=== PATIENT | female | born 1975 | race Caucasian/White ===

== ENCOUNTER 2017-04-09 15:10 | Inpatient (IN) ==
--- NOTE | 2017-04-09 17:10 | Consult Note ---
<Santa Cheng V - Last Filed: 04/09/17 17:22> Consult Information - Data of Consult Patient: new to practice Consult date: 04/09/17 Requesting Physician: Jovani Joyner MD Primary Care Provider: ODALYS Barkley Family Provider: ODALYS Barkley - Consult Narrative Reason for consult: extensive medical comorbities History of present illness: Patient is a 41-year-old female who was initially admitted July 10, 2016 for resection of an intra-abdominal neuroendocrine tumor. Prior to this surgery. She had previously noted increased flushing when she drank alcohol. She was found to have a liver lesion in which a biopsy revealed neuroendocrine tumor. She underwent a small bowel resection, appendectomy, removal of large mesenteric mass encased in a mesenteric artery and vein. Unfortunately, she has underwent numerous complications following this procedure, including are heard' s with a right-sided pneumothorax. She went into septic shock and renal failure , accompanied cardiac dysrhythmias. She has been followed by Dr. Lewis with infectious disease for her ongoing open abdominal wound. On 11/18/16 until she was at [facility] in [place]. She was then moved to swing bed status at [facility] from 01/22 through 03/26. Unfortunately, she obtained a central line infection and was readmitted to via [facility] on March 26. Time she was found to have acute pancreatitis. She has been receiving TPN for ongoing nutrition with extensive wound care to her open abdominal wounds. The hope is that she can gain strength and hopefully discharged home. She was accepted to [facility] swing bed for further ongoing rehabilitation. [facility] Metastatic Neuroendocrine tumor Hypertension. Diabetes. Anemia. Pancreatitis Surgical History: 07/10/16-resection of intra-abdominal neuroendocrine tumor. Subsequently appendectomy, small bowel resection, removal of large mesenteric mass. Multiple other exploratory laparotomies with further resections and ileostomy Family History: unknown - Social History Smoking status: Current every day smoker Substance use type: does not use Household members: spouse, children Current residence: Apartment/Private Home Review of Systems All systems: reviewed and no additional remarkable complaints except as stated - Constitutional Constitutional: Present: fatigue, weakness - Gastrointestinal Gastrointestinal: Present: as per HPI, abdominal pain Medications Home Medications Medication Instructions Recorded Confirmed Type Acetaminophen [Acetaminophen Extra 1,000 mg PO Q6HPRN PRN 04/09/17 04/09/17 History Strength] Acetaminophen [Feverall] 650 mg RC Q4HPRN PRN 04/09/17 04/09/17 History Albuterol/Ipratropium [Duoneb] 1 unit AEROSOL QIDPRN PRN 04/09/17 04/09/17 History Cetirizine [Zyrtec] 5 mg PO DAILY 04/09/17 04/09/17 History D50w [Dextrose 50% in Water] 50 ml IV O PRN 04/09/17 04/09/17 History DiphenhydrAMINE [Benadryl] 25 mg IV Q8HPRN PRN 04/09/17 04/09/17 History FentaNYL PATCH [Duragesic Patch] 25 mcg TD Q3D 04/09/17 04/09/17 History FentaNYL PATCH [Duragesic Patch] 50 mcg TD Q3D 04/09/17 04/09/17 History Furosemide [Lasix] 20 mg IM DAILY PRN 04/09/17 04/09/17 History Glucagon [Glucagen] 1 mg IM PRN PRN 04/09/17 04/09/17 History Heparin Sodium,Porcine/Pf [Heparin 1 ml IVP BID 04/09/17 04/09/17 History Flush 10 Units/ml Syr] HydrOXYzine [Atarax] 25 mg PO QIDPRN PRN 04/09/17 04/09/17 History Hydromorphone HCl in 0.9% NaCl 0.25 mg IVP Q2HPRN PRN 04/09/17 04/09/17 History [Hydromorphone-Ns 1 mg/ml Syr] Insulin Lispro [Humalog] 2 - 12 unit SQ PRN PRN 04/09/17 04/09/17 History LORazepam INJ [Ativan Inj] 0.13 ml IM Q6HPRN PRN 04/09/17 04/09/17 History Meperidine HCl/Pf [Meperidine 25 2 ml IV Q4HPRN PRN 04/09/17 04/09/17 History mg/ml Vial] Miconazole 2% Powder [Desenex] 1 applic TP BID 04/09/17 04/09/17 History Nystatin Cream [Mycostatin] 1 applic TOP BID 04/09/17 04/09/17 History Ondansetron [Zofran Odt] 1 tab PO Q6HPRN PRN 04/09/17 04/09/17 History Oxycodone *Ir* [Roxicodone *Ir*] 5 - 10 mg PO Q4HPRN 04/09/17 04/09/17 History Polyethylene Glycol 3350 17 gm PO DAILY PRN 04/09/17 04/09/17 History Saliva Substitute Mouth [address] 1 applic PO QIDPRN PRN 04/09/17 04/09/17 History [Biotene Moisturizing Mouth [address]] Exam Vital Signs: Temperature 98.5 F 04/09/17 15:44 Pulse Rate 106 H 04/09/17 15:44 Respiratory Rate 18 04/09/17 15:44 Blood Pressure 125/80 04/09/17 15:44 Pulse Oximetry 98 04/09/17 15:44 Oxygen Delivery Method Room Air Height: 1.57 m Weight: 76.6 kg Body Mass Index: 30.9 - Constitutional Present: mild distress - Routine HEENT Exam Head: Present: normocephalic, atraumatic Eye: Present: EOMI, PERRL ENT: Present: mucous membranes moist, mucous membranes dry - Routine Neck Exam Present: supple, full ROM - Routine Respiratory Exam Present: CTA bilaterally - Routine Cardiovascular Exam Present: RRR, S1, S2, no murmur - Routine Abdominal Exam Comments: Open abdominal wound - Routine Extremities Exam Present: full ROM - Routine Back/Spine/Pelvis Exam Back/Spine: Present: full ROM - Routine Skin Exam Present: intact, dry, warm - Routine Neurological Exam Present: alert, oriented X3, CN II-XII intact - Routine Psychiatric Exam Present: normal affect, anxious Assessment and Plan (1) HTN (hypertension) Current visit: Yes Status: Acute (2) Diabetes Current visit: Yes Status: Acute (3) Open abdominal wall wound Current visit: Yes Status: Acute (4) Decubitus ulcer Current visit: Yes Status: Acute DVT Prophylaxis: SCD's Resuscitation Status: Full Code Assessment and Plan: Other ongoing medical problems. Recent pancreatitis Recent acute kidney injury Recurrent peritonitis Colocutaneous fistula Recent septic shock with Enterococcus Faecalis Plan Patient has a very complex past medical history Hospital services will continue to follow patient during her stay in the rehabilitation unit. Consult placed to wound care team for ongoing abdominal wound management and dressing changes. It was also reported that patient had a Consultation is placed to the pharmacy for TPN for ongoing nutrition. Patient is to be on a clear liquid diet, however, may not have more than 150 ML' s every hour while awake Monitor Accu-Cheks routinely. Continue with sliding scale Humalog 2-12 units. SCD to the lateral lower extremity for DVT prophylaxis Patient to PT and OT for ongoing strengthening Recheck CBC and BMP tomorrow morning to follow blood counts, renal function and electrolytes Hospital Course Summary Disclaimer: The visit summary below is not to be considered part of the above Progress Note. Hospital Course: Other ongoing medical problems. Recent pancreatitis Recent acute kidney injury Recurrent peritonitis Colocutaneous fistula Recent septic shock with Enterococcus Faecalis Plan Patient has a very complex past medical history Hospital services will continue to follow patient during her stay in the rehabilitation unit. Consult placed to wound care team for ongoing abdominal wound management and dressing changes. It was also reported that patient had a Consultation is placed to the pharmacy for TPN for ongoing nutrition. Patient is to be on a clear liquid diet, however, may not have more than 150 ML' s every hour while awake Monitor Accu-Cheks routinely. Continue with sliding scale Humalog 2-12 units. SCD to the lateral lower extremity for DVT prophylaxis Patient to PT and OT for ongoing strengthening Recheck CBC and BMP tomorrow morning to follow blood counts, renal function and electrolytes <Karl Grajeda - Last Filed: 04/09/17 19:28> Consult Information - Data of Consult Requesting Physician: Jovani Joyner MD Primary Care Provider: ODALYS Barkley Family Provider: ODALYS Barkley Exam Vital Signs: Temperature 98.5 F 04/09/17 15:44 Pulse Rate 106 H 04/09/17 15:44 Respiratory Rate 18 04/09/17 15:44 Blood Pressure 125/80 04/09/17 15:44 Pulse Oximetry 98 04/09/17 15:44 Oxygen Delivery Method Room Air Height: 1.57 m Weight: 76.6 kg Assessment and Plan (1) HTN (hypertension) Current visit: Yes Status: Acute (2) Diabetes Current visit: Yes Status: Acute (3) Open abdominal wall wound Current visit: Yes Status: Acute (4) Decubitus ulcer Current visit: Yes Status: Acute Assessment and Plan: Have independently interviewed and examined pt. Chart reviewed. Case discussed with my CHILD THERAPIST. Above care plan developed with my supervision; agree with above. Doing fair. Very weak and debilitated from her extensive hospitalizations. Hoping to make gains her like she did in alf prior. Notes ab discomfort. Does want more fluids than the 150cc she is allowed-feels hungry and liquids help take the edge off her hunger. No nausea. Breathing well. Lungs: clear CV: tachy, regular MSE: awake alert appropriate Plan: Agree with admission of pt to IRU to maximize functional status. Continue with TPN for nutritional support. Monitor lab. Monitor sugars due to TPN. Will check prealbumin in am to assess nutritional status. Hospital Course Summary Disclaimer: The visit summary below is not to be considered part of the above Progress Note.
[2017-04-09] MEDS ORDERED: DEXTROSE 50% INJECTION 50ml VIAL IV PRN (17:19)
[2017-04-09] MEDS ORDERED: ALBUTEROL/IPRATROPIUM 2.5mg-0.5mg/3ml NEB AEROSOL PRN (17:19)
[2017-04-09] MEDS ORDERED: ACETAMINOPHEN 650 MG SUPPOSITORY PR PRN (17:19)
[2017-04-09] MEDS ORDERED: POLYETHYL GLYCOL 3350 17gm PACKET PO PRN (17:19)
[2017-04-09] MEDS ORDERED: FUROSEMIDE 20 MG/2 ML INJECTION IVP PRN (17:19)
[2017-04-09] MEDS ORDERED: GLUCAGON 1 MG INJECTION IM PRN (17:19)
[2017-04-09] MEDS ORDERED: INSULIN ASPART 100unit/ml INJECTION SQ PRN (17:19)
[2017-04-09] MEDS ORDERED: SALIVA SUBSTITUTE MOUTH SPRAY 1.5oz PO PRN (17:19)
[2017-04-09] MEDS ORDERED: HYDROMORPHONE 2 MG/ML INJECTION IVP PRN (17:19)
[2017-04-09] MEDS: FOLIC ACID IV SCH (17:36)
[2017-04-09] MEDS: MULTI TRACE ELEMENTS IV SCH (17:36)
[2017-04-09] MEDS: MULTI VIT INFUSION IV SCH (17:36)
[2017-04-09] MEDS: [UNRECOGNIZED DRUG - OTHER] IV SCH (17:36)
[2017-04-09] MEDS: Oxycodone *IR* 5 MG TABLET PO PRN (19:38)
[2017-04-09] MEDS: FAT EMULSION 20% 250 ML IV SCH (19:51)
[2017-04-09] MEDS: MICONAZOLE 2% POWDER 45gm TP SCH ×2 (21:55→22:05)
[2017-04-09] MEDS ORDERED: SALINE FLUSH 10ml SYRINGE IV PRN (23:01)
[2017-04-10] MEDS: Oxycodone *IR* 5 MG TABLET PO PRN ×4 (01:19→23:20)
--- NOTE | 2017-04-10 04:42 | IRU History & Physical Report ---
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 Initial surgery on 07/10/16, but has not been home since that date. She had post op complications involving renal failure, sepsis and cardiac arrest. She was fed TPN via central line, which developed infection and she has been on IV antibiotics. Continued feeding on TPN with only clear liquids oral due to open colon fistula and continued pancreatitis. She is unable to manage ADL at this time and is appropriate for admission to IRU for Inpatient Physical Therapy and Occupational Therapy. Review of Systems All systems: reviewed and no additional remarkable complaints except as stated - Constitutional Constitutional: Present: fatigue, weakness - Cardiovascular Cardiovascular: Present: palpitations, dyspnea on exertion, orthopnea - Respiratory Respiratory: Present: dyspnea - Gastrointestinal Gastrointestinal: Present: as per HPI, abdominal pain - Psychiatric Psychiatric: Present: depression, hopelessness, mood swings [facility] Surgical History: 07/10/16-resection of intra-abdominal neuroendocrine tumor. Subsequently appendectomy, small bowel resection, removal of large mesenteric mass. Multiple other exploratory laparotomies with further resections and ileostomy - Social History Smoking status: Current every day smoker Substance use type: does not use Alcohol intake frequency: does not drink Current residence: Apartment/Private Home Medications Home Medications Medication Instructions Recorded Confirmed Type Acetaminophen [Acetaminophen Extra 1,000 mg PO Q6HPRN PRN 04/09/17 04/09/17 History Strength] Acetaminophen [Feverall] 650 mg RC Q4HPRN PRN 04/09/17 04/09/17 History Albuterol/Ipratropium [Duoneb] 1 unit AEROSOL QIDPRN PRN 04/09/17 04/09/17 History Cetirizine [Zyrtec] 5 mg PO DAILY 04/09/17 04/09/17 History D50w [Dextrose 50% in Water] 50 ml IV O PRN 04/09/17 04/09/17 History DiphenhydrAMINE [Benadryl] 25 mg IV Q8HPRN PRN 04/09/17 04/09/17 History FentaNYL PATCH [Duragesic Patch] 25 mcg TD Q3D 04/09/17 04/09/17 History FentaNYL PATCH [Duragesic Patch] 50 mcg TD Q3D 04/09/17 04/09/17 History Furosemide [Lasix] 20 mg IM DAILY PRN 04/09/17 04/09/17 History Glucagon [Glucagen] 1 mg IM PRN PRN 04/09/17 04/09/17 History Heparin Sodium,Porcine/Pf [Heparin 1 ml IVP BID 04/09/17 04/09/17 History Flush 10 Units/ml Syr] HydrOXYzine [Atarax] 25 mg PO QIDPRN PRN 04/09/17 04/09/17 History Hydromorphone HCl in 0.9% NaCl 0.25 mg IVP Q2HPRN PRN 04/09/17 04/09/17 History [Hydromorphone-Ns 1 mg/ml Syr] Insulin Lispro [Humalog] 2 - 12 unit SQ PRN PRN 04/09/17 04/09/17 History LORazepam INJ [Ativan Inj] 0.13 ml IM Q6HPRN PRN 04/09/17 04/09/17 History Meperidine HCl/Pf [Meperidine 25 2 ml IV Q4HPRN PRN 04/09/17 04/09/17 History mg/ml Vial] Miconazole 2% Powder [Desenex] 1 applic TP BID 04/09/17 04/09/17 History Nystatin Cream [Mycostatin] 1 applic TOP BID 04/09/17 04/09/17 History Ondansetron [Zofran Odt] 1 tab PO Q6HPRN PRN 04/09/17 04/09/17 History Oxycodone *Ir* [Roxicodone *Ir*] 5 - 10 mg PO Q4HPRN 04/09/17 04/09/17 History Polyethylene Glycol 3350 17 gm PO DAILY PRN 04/09/17 04/09/17 History Saliva Substitute Mouth [place] 1 applic PO QIDPRN PRN 04/09/17 04/09/17 History [Biotene Moisturizing Mouth [place]] Allergies Allergy/AdvReac Type Severity Reaction Status Date / Time kiwi Allergy Severe Rash Verified 04/10/17 01:26 orange Allergy Severe Rash Verified 04/10/17 01:26 vancomycin Allergy Severe Rash Verified 04/10/17 01:26 Penicillins Allergy Unknown Verified 04/10/17 01:26 Exam Vital Signs: Temperature 98.3 F 04/09/17 20:26 Pulse Rate 96 04/09/17 21:11 Respiratory Rate 18 04/09/17 21:11 Blood Pressure 118/75 04/09/17 20:26 Pulse Oximetry 99 04/09/17 21:11 Oxygen Delivery Method Room Air Telemetry Rhythm: Sinus Rhythm Height: 1.57 m Weight: 76.6 kg Body Mass Index: 30.9 - Constitutional Present: mild distress, cooperative - Routine HEENT Exam Head: Present: normocephalic - Routine Chest/Breast/Axilla Exam Chest wall: Absent: tenderness - Routine Respiratory Exam Absent: accessory muscle use, wheezes, crackles - Routine Cardiovascular Exam Present: RRR, no murmur - Routine Abdominal Exam Comments: open abd with wound vac in place. - Routine Extremities Exam Present: pulses intact. Absent: cyanosis, clubbing, edema - Routine Skin Exam Comments: stage 3 decud ulcer buttock - Routine Psychiatric Exam Present: depressed IRU A/P (1) Myopathy Current visit: Yes Status: Acute Myopathy of critical illness. Pt will require PT and OT involvement in intense therapy daily. (2) Diabetes Current visit: Yes Status: Acute Medical to follow (3) Open abdominal wall wound Current visit: Yes Status: Acute Wound care to follow and manage wound vac. Pt's surgeon will manage if needed. (4) Decubitus ulcer Current visit: Yes Status: Acute wound care consult. DVT Prophylaxis: SCD's Resuscitation Status: Full Code - Course Hospital Course: Jovani Joyner MD: - Interventions to Obtain Goals PT Treatment Plan: Balance/Proprioception, Functional Activities, Gait Training , Therapeutic Exercise OT Treatment Plan: ADL (Basic Care), Balance Training, Joint Mobilization
--- NOTE | 2017-04-10 04:53 | IRU 24Hr Post Admit Eval ---
24 Hr Post Admission Physical - Relevant Changes Relevant Changes: No Reviewed: I have reviewed the patient's information and concur with the finding and results of the pre-admission screen. Certification: I certify the patient for rehabilitation. - Patient Condition (1) Myopathy Status: Acute Code(s): G72.9 - Myopathy, unspecified (2) Diabetes Status: Acute Code(s): E11.9 - Type 2 diabetes mellitus without complications (3) Open abdominal wall wound Status: Acute Code(s): S31.109A - Unspecified open wound of abdominal wall, unspecified quadrant without penetration into peritoneal cavity, initial encounter (4) Decubitus ulcer Status: Acute Code(s): L89.90 - Pressure ulcer of unspecified site, unspecified stage - Prior Functional Status Lives With: With Family Residence Type: Apartment/Private Home Assitive Devices: None Prior Functional Status: Indep. at home or school - Current Functional Status Failed Alternative Therapy: Yes Patient Requirements: The patient requires oversight by rehabilitation physician to manage their rehabilitation treatment plan and multidisciplinary approach to care that can only be provided in an IRF and requires a multidisciplinary approach to care, provided by professional PTs, OTs, STs, dieticians, RTs, rehabilitation nurses and is not available in lesser levels of care. Limitiations Req: Mobility Impairment, ADL Impairment Speech Therapy Minutes: 0 Physical Therapy Minutes: 90 Occupational Therapy Minutes: 90 Therapy: The patient is to receive therapy at least 5 days a week. - Complications/Comorbidities Impact on Functional Outcomes: Severe weakness, illness and mood disorder will delay long-term recovery. Barriers to Discharge: Weakness - Plan to Avoid Complications Plan to Avoid Complications: The patient cannot receive this care in a lesser intensive setting such as Snf or Outpatient Therapy due to the patient requiring intense daily therapy.
[2017-04-10] MEDS: ONDANSETRON ODT 4 MG TABLET PO PRN ×2 (08:28→23:13)
[2017-04-10] MEDS: CETIRIZINE 10 MG TABLET PO SCH (08:29)
[2017-04-10] MEDS: MICONAZOLE 2% POWDER 45gm TP SCH ×3 (08:30→23:00)
[2017-04-10] MEDS: SALINE FLUSH 10ml SYRINGE IV PRN (08:30)
[2017-04-10] MEDS: ACETAMINOPHEN 500 MG TABLET PO PRN (11:29)
[2017-04-10] MEDS: PROMETHAZINE 12.5 MG TABLET PO PRN (11:29)
--- NOTE | 2017-04-10 11:43 | Pharmacy Consult-TPN/PPN ---
Pharmacy Consult-TPN/PPN - Laboratory Information Chemistry Turbidity < 20 (0-20) 04/10/17 04:46 Sodium 134 MEQ/L (134-144) 04/10/17 04:46 Potassium 3.9 MEQ/L (3.6-5) 04/10/17 04:46 Chloride 111 MEQ/L (98-107) H 04/10/17 04:46 Carbon Dioxide 19 MEQ/L (22-30) L 04/10/17 04:46 Anion Gap 4 MEQ/L (5-15) L 04/10/17 04:46 BUN 48.0 MG/DL (7-17) H 04/10/17 04:46 Creatinine 0.8 MG/DL (0.7-1.2) 04/10/17 04:46 GFR Calculation 79 04/10/17 04:46 BUN/Creatinine Ratio 60 RATIO (6-26) H 04/10/17 04:46 Glucose 85 MG/DL (65-110) 04/10/17 04:46 Calculated Osmolality 270 MOSM/KG (261-280) 04/10/17 04:46 Calcium 8.3 MG/DL (8.4-10.2) L 04/10/17 04:46 Phosphorus 4.4 MG/DL (2.5-4.5) 04/10/17 04:46 Magnesium 2.0 MG/DL (1.6-2.3) 04/10/17 04:46 Total Bilirubin 1.60 MG/DL (0.20-1.30) H 04/10/17 04:46 Icterus Index < 2 (0-7) 04/10/17 04:46 AST 72 U/L (14-36) H 04/10/17 04:46 ALT 77 U/L (9-52) H 04/10/17 04:46 Alkaline Phosphatase 292 U/L (38-126) H 04/10/17 04:46 Total Protein 5.6 G/DL (6.3-8.2) L 04/10/17 04:46 Albumin 2.2 G/DL (3.5-5.0) L 04/10/17 04:46 Globulin 3.4 G/DL (2.4-3.6) 04/10/17 04:46 Albumin/Globulin Ratio 0.6 RATIO (1.1-2.2) L 04/10/17 04:46 Specimen Hemolysis < 15 (0-25) 04/10/17 04:46 Intake and Output 04/09/17 04/10/17 04/11/17 06:59 06:59 06:59 Intake Total 750 / 750 Output Total 700 / 700 1450 / 1450 Balance 50 / 50 -1450 / -1450 Weight 76.6 kg Intake: IV 250 / 250 Intralipid 20% 250 ml @ 250 / 250 50 mls/hr IV 1600 [facility] Rx# :[id number] Oral 500 / 500 Output: Stool 1450 / 1450 Urine Amount (Catheter) 700 / 700 - Consult Information We will continue to run TPN at 75mL per hour with the new formula of adding 40mEq of sodium acetate to next standard bag. Serum sodium was 134 and low normal with bicarbonate of 19. LFT's are elevated at this time. Thanks
--- NOTE | 2017-04-10 12:39 | Progress Note ---
Subjective: Laura is seen this morning. She is in good spirits and was able to get rest overnight. On examination she reports mild abdominal pain. Denies feeling short of breath or chest pain. wound output overnight revels 1450 ml. UO via christine is 700ml. Objective Vital signs: Temperature 98.5 F 04/10/17 07:52 Pulse Rate 99 04/10/17 07:52 Respiratory Rate 20 04/10/17 07:52 Blood Pressure 112/64 04/10/17 07:52 Pulse Oximetry 99 04/10/17 07:52 Oxygen Delivery Method Room Air Body Mass Index: 30.9 - Constitutional Present: no acute distress - Routine HEENT Exam Head: Present: normocephalic Eye: Present: EOMI, PERRL ENT: Present: mucous membranes moist - Routine Respiratory Exam Present: CTA bilaterally - Routine Cardiovascular Exam Present: RRR, S1, S2 - Routine Abdominal Exam Comments: abdomen dressing intact and applied to wall suction - Routine Extremities Exam Present: full ROM Comments: Bilateral foot drop - Routine Back/Spine/Pelvis Exam Back/Spine: Present: full ROM - Routine Skin Exam Present: intact, dry, warm - Routine Neurological Exam Present: alert, oriented X3, CN II-XII intact - Routine Psychiatric Exam Present: normal affect Results - Labs CBC & Chem 7: 04/10/17 04:46 04/10/17 04:46 Assessment and Plan (1) Diabetes Current visit: Yes Status: Acute (2) Open abdominal wall wound Current visit: Yes Status: Acute (3) Decubitus ulcer Current visit: Yes Status: Acute (4) Myopathy Current visit: Yes Status: Acute Assessment and Plan: 04/10 Overall in good spirits Reviewed all morning labs. Hgb is low however is stable at 7.9. Old records did show Hgb down to 7.2 Continue to work on wound care as per Wound team. Pain control with fentanyl patch and oxycodone as needed for breakthrough pain. Spoke with infectious disease regarding infectious and recent history Enterococcus infection. Will continue on precautions until cultures are verified from [facility] [address]. PT reports that patient was able to be up in the chair for over an hour. Will continue to work on strengthening. Encouraged frequent turning (every 2 hours while in bed) to keep patient off Coccyx given known coccyx wound Will continue to monitor. Routine laboratory studies every 2-3 days Sepsis Assessment - Evaluation Sepsis screening result: No Definite Risk Hospital Course Summary Disclaimer: The visit summary below is not to be considered part of the above Progress Note. Hospital Course: Other ongoing medical problems. Recent pancreatitis Recent acute kidney injury Recurrent peritonitis Colocutaneous fistula Recent septic shock with Enterococcus Faecalis Plan Patient has a very complex past medical history Hospital services will continue to follow patient during her stay in the rehabilitation unit. Consult placed to wound care team for ongoing abdominal wound management and dressing changes. It was also reported that patient had a Consultation is placed to the pharmacy for TPN for ongoing nutrition. Patient is to be on a clear liquid diet, however, may not have more than 150 ML' s every hour while awake Monitor Accu-Cheks routinely. Continue with sliding scale Humalog 2-12 units. SCD to the lateral lower extremity for DVT prophylaxis Patient to PT and OT for ongoing strengthening Recheck CBC and BMP tomorrow morning to follow blood counts, renal function and electrolytes
[2017-04-10] MEDS ORDERED: FALL RISK - PHARMACY CONSULT MC PRN (13:09)
[2017-04-10] MEDS: FAT EMULSION 20% 250 ML IV SCH (15:10)
[2017-04-10] MEDS: MULTI VIT INFUSION IV SCH (18:26)
[2017-04-10] MEDS: [UNRECOGNIZED DRUG - OTHER] IV SCH (18:26)
[2017-04-10] MEDS: FOLIC ACID IV SCH (18:26)
[2017-04-10] MEDS: MULTI TRACE ELEMENTS IV SCH (18:26)
[2017-04-11] MEDS: Oxycodone *IR* 5 MG TABLET PO PRN ×3 (03:55→13:48)
[2017-04-11] MEDS: MICONAZOLE 2% POWDER 45gm TP SCH ×2 (09:34→21:16)
[2017-04-11] MEDS: CETIRIZINE 10 MG TABLET PO SCH (09:35)
[2017-04-11] MEDS: ONDANSETRON ODT 4 MG TABLET PO PRN ×2 (09:36→13:47)
[2017-04-11 13:04] VITALS: BMI 30.7
[2017-04-11] MEDS ORDERED: HYDROMORPHONE 2 MG/ML INJECTION IVP ONE (14:40)
[2017-04-11] MEDS: ACETAMINOPHEN 500 MG TABLET PO PRN (15:43)
--- NOTE | 2017-04-11 17:40 | Progress Note ---
Subjective: Darell is seen today in follow-up. She is resting in bed and states that she is having a difficult today. She complains of having some lower generalized abdominal discomfort. She also reports feeling urinary burning around her catheter. She is concerned that she has a urinary tract infection. Reports that earlier in the day she felt nauseated, however, this has resolved. Requests further pain control. Objective Vital signs: Temperature 99.2 F 04/11/17 08:00 Pulse Rate 101 H 04/11/17 08:00 Respiratory Rate 20 04/11/17 08:00 Blood Pressure 115/69 04/11/17 08:00 Pulse Oximetry 98 04/11/17 08:00 Oxygen Delivery Method Room Air Height: 1.57 m Weight: 76.204 kg Body Mass Index: 30.7 - Constitutional Present: no acute distress, well nourished, well developed - Routine HEENT Exam Head: Present: normocephalic, atraumatic Eye: Present: EOMI ENT: Present: mucous membranes moist, dentition normal - Routine Respiratory Exam Present: CTA bilaterally. Absent: wheezes - Routine Cardiovascular Exam Present: RRR, S1, S2, no murmur. Absent: murmur - Routine Abdominal Exam Present: soft, normoactive bowel sounds, surgical scars, wound. Absent: tenderness Comments: Open abdominal wound with her system intact. Change in output. Abdomen is soft. No evidence of peritonitis. - Routine Extremities Exam Present: normal capillary refill - Routine Back/Spine/Pelvis Exam Back/Spine: Present: full ROM - Routine Skin Exam Present: dry, warm - Routine Neurological Exam Present: alert, oriented X3, CN II-XII intact - Routine Lymphatic Exam Lymphatic: Absent: adenopathy - Routine Psychiatric Exam Present: normal affect Results - Labs CBC & Chem 7: 04/10/17 04:46 04/11/17 04:53 Microbiology Results: Microbiology 04/10/17 21:22 Urine, Cath Mills Urine Culture - Preliminary Early growth Assessment and Plan (1) Diabetes Current visit: Yes Status: Acute (2) Open abdominal wall wound Current visit: Yes Status: Acute (3) Decubitus ulcer Current visit: Yes Status: Acute (4) Myopathy Current visit: Yes Status: Acute Assessment and Plan: 04/11 Reviewed admission urinalysis from yesterday revealing trace protein, plus blood , positive nitrates, 2+ leukocyte esterase, 5-10 RBCs with 10-20 WBCs with presence of yeast and bacteria. It is unclear if this is colonized and chronic. Given long-term indwelling Mills catheter. Given her complaints of urethral discomfort accompanied with positive urinalysis at this time we will go ahead and treat starting 1 gram of IV Rocephin. We did discuss that utilizing antibiotics need to be conservative given she is at risk for jackelin C. difficile. We will also change of Mills catheter today. Continue with topical fentanyl patch. Suspect that patient may not get adequate pain control from oral pain pills, she likely does not absorb this in her GI tract. Did discuss pain control further with rehabilitation attending, Dr. Joyner We'll recheck CBC and BMP tomorrow morning to follow blood counts, renal function and electrolyte Encourage patient to participate in physical therapy and occupational therapy as it is her goal that she will improve and be able to be discharged home. Case discussed with multiple disciplinary team members including PT, Nursing staff, infectious disease, IRU lana, Dr Jonyer and Dr Grajeda Sepsis Assessment - Evaluation Sepsis screening result: No Definite Risk Hospital Course Summary Disclaimer: The visit summary below is not to be considered part of the above Progress Note. Hospital Course: Other ongoing medical problems. Recent pancreatitis Recent acute kidney injury Recurrent peritonitis Colocutaneous fistula Recent septic shock with Enterococcus Faecalis 04/10- Admission Plan Patient has a very complex past medical history Hospital services will continue to follow patient during her stay in the rehabilitation unit. Consult placed to wound care team for ongoing abdominal wound management and dressing changes. It was also reported that patient had a Consultation is placed to the pharmacy for TPN for ongoing nutrition. Patient is to be on a clear liquid diet, however, may not have more than 150 ML' s every hour while awake Monitor Accu-Cheks routinely. Continue with sliding scale Humalog 2-12 units. SCD to the lateral lower extremity for DVT prophylaxis Patient to PT and OT for ongoing strengthening Recheck CBC and BMP tomorrow morning to follow blood counts, renal function and electrolytes 04/11 Reviewed admission urinalysis from yesterday revealing trace protein, plus blood , positive nitrates, 2+ leukocyte esterase, 5-10 RBCs with 10-20 WBCs with presence of yeast and bacteria. It is unclear if this is colonized and chronic. Given long-term indwelling Mills catheter. Given her complaints of urethral discomfort accompanied with positive urinalysis at this time we will go ahead and treat starting 1 gram of IV Rocephin. We did discuss that utilizing antibiotics need to be conservative given she is at risk for jackelin C. difficile. We will also change of Mills catheter today. Continue with topical fentanyl patch. Suspect that patient may not get adequate pain control from oral pain pills, she likely does not absorb this in her GI tract. Did discuss pain control further with rehabilitation attending, Dr. Joyner We'll recheck CBC and BMP tomorrow morning to follow blood counts, renal function and electrolyte Encourage patient to participate in physical therapy and occupational therapy as it is her goal that she will improve and be able to be discharged home. Case discussed with multiple disciplinary team members including PT, Nursing staff, infectious disease, IRU directer, Dr Joyner and Dr Grajeda
[2017-04-11] MEDS: CEFTRIAXONE 1 G in NS 100 ML IV SCH (17:52)
[2017-04-11] MEDS: [UNRECOGNIZED DRUG - OTHER] IV SCH ×2 (18:50→22:17)
[2017-04-11] MEDS: FOLIC ACID IV SCH ×2 (18:50→22:17)
[2017-04-11] MEDS: MULTI VIT INFUSION IV SCH ×2 (18:50→22:17)
[2017-04-11] MEDS: MULTI TRACE ELEMENTS IV SCH ×2 (18:50→22:17)
[2017-04-11] MEDS: SALINE FLUSH 10ml SYRINGE IV PRN (21:12)
[2017-04-12] MEDS: Oxycodone *IR* 5 MG TABLET PO PRN ×5 (03:54→20:39)
[2017-04-12] MEDS: ONDANSETRON ODT 4 MG TABLET PO PRN ×3 (03:55→20:40)
[2017-04-12] MEDS: PROMETHAZINE 12.5 MG TABLET PO PRN (07:58)
--- NOTE | 2017-04-12 08:29 | Pharmacy Consult-TPN/PPN ---
Pharmacy Consult-TPN/PPN - Laboratory Information Chemistry Turbidity < 20 (0-20) 04/12/17 05:18 Sodium 134 MEQ/L (134-144) 04/12/17 05:18 Potassium 3.7 MEQ/L (3.6-5) 04/12/17 05:18 Chloride 105 MEQ/L (98-107) 04/12/17 05:18 Carbon Dioxide 24 MEQ/L (22-30) 04/12/17 05:18 Anion Gap 5 MEQ/L (5-15) 04/12/17 05:18 BUN 34.0 MG/DL (7-17) H 04/12/17 05:18 Creatinine 0.8 MG/DL (0.7-1.2) 04/12/17 05:18 GFR Calculation 79 04/12/17 05:18 BUN/Creatinine Ratio 43 RATIO (6-26) H 04/12/17 05:18 Glucose 107 MG/DL (65-110) 04/12/17 05:18 Calculated Osmolality 266 MOSM/KG (261-280) 04/12/17 05:18 Calcium 8.3 MG/DL (8.4-10.2) L 04/12/17 05:18 Phosphorus 4.4 MG/DL (2.5-4.5) 04/10/17 04:46 Magnesium 2.0 MG/DL (1.6-2.3) 04/10/17 04:46 Total Bilirubin 1.60 MG/DL (0.20-1.30) H 04/10/17 04:46 Icterus Index < 2 (0-7) 04/12/17 05:18 AST 72 U/L (14-36) H 04/10/17 04:46 ALT 77 U/L (9-52) H 04/10/17 04:46 Alkaline Phosphatase 292 U/L (38-126) H 04/10/17 04:46 Total Protein 5.6 G/DL (6.3-8.2) L 04/10/17 04:46 Albumin 2.2 G/DL (3.5-5.0) L 04/10/17 04:46 Globulin 3.4 G/DL (2.4-3.6) 04/10/17 04:46 Albumin/Globulin Ratio 0.6 RATIO (1.1-2.2) L 04/10/17 04:46 Specimen Hemolysis < 15 (0-25) 04/12/17 05:18 Intake and Output 04/11/17 04/12/17 04/13/17 06:59 06:59 06:59 Intake Total 600 / 600 2168.75 / 2168.75 Output Total 3450 / 3450 560 / 560 Balance -2850 / -2850 1608.75 / 1608.75 Weight 76.204 kg Intake: IV 2168.75 / 2168.75 Rocephin 1 G In Normal 100 / 100 Saline 100 ml @ 200 mls/ hr IV Q24H [facility] Rx#: [id number] Infuvite Adult 10 ml 2068.75 / 2068.75 Multi-Trace Elements 1 ml Folate 2 mg Vitamin B-1 100 mg Sodium Acetate 40 Meq In TPN - Standard Formula 2,000 ml @ 75 mls /hr IV .Q24H SEAN Rx#: [id number] Oral 600 / 600 Output: Stool 2850 / 2850 Urine Amount (Catheter) 600 / 600 560 / 560 Other: # Incontinent Voids 1 # Incontinent Bowel 1 Movements # Unmeasured Emesis 1 Episodes - Consult Information Will continue current formula of TPN except no extra sodium acetatie (used our last yesterday and with nationwide shortage we are unable to obtain). The formula still has 140 mEq of acetate in it. Current rate is 75 ml/hr. Thank you.
[2017-04-12] MEDS: CETIRIZINE 10 MG TABLET PO SCH (09:05)
[2017-04-12] MEDS: MICONAZOLE 2% POWDER 45gm TP SCH ×2 (10:27→20:39)
[2017-04-12] MEDS: ACETAMINOPHEN 500 MG TABLET PO PRN (11:24)
--- NOTE | 2017-04-12 12:27 | Progress Note ---
Subjective: I watched Emilia stand up from her bed and transfer to her wheelchair. She did well up until she was ready to sit back down, and then she experienced pain to her right axilla and right chest wall from the gait belt and she could no longer follow directions and reach back for the chair. She had some problems with her dressing leaking overnight, and the wound nurse has already been in to fix the dressing on her abdomen. Physical therapy reminded her to wear the construction boots at night. She denies any shortness of breath, cough, or fever. We reviewed the preliminary urine culture, which is growing gram- negative rods. I informed her that her white count improved today and she has not been consistently febrile, though she did have one isolated temperature of 100F yesterday late afternoon. Objective Vital signs: Temperature 98.5 F 04/12/17 08:00 Pulse Rate 103 H 04/12/17 08:00 Respiratory Rate 24 04/12/17 08:00 Blood Pressure 117/69 04/12/17 08:00 Pulse Oximetry 98 04/12/17 08:00 Oxygen Delivery Method Room Air Height: 1.57 m Weight: 76.204 kg Body Mass Index: 30.7 - Constitutional Present: mild distress, well nourished, well developed - Routine HEENT Exam Eye: Absent: conjunctival icterus ENT: Present: mucous membranes moist - Routine Respiratory Exam Present: crackles (bilateral bases) - Routine Cardiovascular Exam Present: RRR, S1, S2, tachycardia (mild tachycardia) - Routine Abdominal Exam Comments: Dressing intact to abdomen - Routine Extremities Exam Present: no edema, pulses intact - Routine Skin Exam Present: dry, warm - Routine Neurological Exam Present: alert, oriented X3 - Routine Psychiatric Exam Present: normal affect, normal thought process Results - Labs CBC & Chem 7: 04/12/17 05:18 04/12/17 05:18 Microbiology Results: Microbiology 04/10/17 21:22 Urine, Cath Mills Urine Culture - Preliminary Gram Negative Nader Assessment and Plan (1) Diabetes Current visit: Yes Status: Acute (2) Open abdominal wall wound Current visit: Yes Status: Acute (3) Decubitus ulcer Current visit: Yes Status: Acute (4) Myopathy Current visit: Yes Status: Acute (5) HTN (hypertension) Current visit: Yes Status: Acute (6) Hyponatremia Current visit: Yes Status: Acute Assessment and Plan: Abdominal wound: Continue care per wound team. Bacturia: Preliminary urine culture is showing gram-negative rods, yeast. Will await final culture report before initiating any antibiotic therapy. Suspect colonization. She had one isolated temperature of 100F. White count is trending down. Bilateral rales: Suspect atelectasis, but she has not had a chest x-ray since arrival. Will obtain portable chest x-ray. Encourage incentive spirometry. Respiratory therapy recommends an overnight oximetry, which will be done tonight. Macrocytic anemia: Hemoglobin 7.8. Assess vitamin B12 and folate. Repeat CBC tomorrow morning Continue TPN. Reassess BMP, magnesium and phosphorus levels tomorrow morning. Glucose has been reasonably controlled. Elevated LFTs: Possibility related to TPN. Will repeat tomorrow morning. Sepsis Assessment - Evaluation Sepsis screening result: No Definite Risk Hospital Course Summary Disclaimer: The visit summary below is not to be considered part of the above Progress Note. Hospital Course: Other ongoing medical problems. Recent pancreatitis Recent acute kidney injury Recurrent peritonitis Colocutaneous fistula Recent septic shock with Enterococcus Faecalis 04/10- Admission Plan Patient has a very complex past medical history Hospital services will continue to follow patient during her stay in the rehabilitation unit. Consult placed to wound care team for ongoing abdominal wound management and dressing changes. It was also reported that patient had a Consultation is placed to the pharmacy for TPN for ongoing nutrition. Patient is to be on a clear liquid diet, however, may not have more than 150 ML' s every hour while awake Monitor Accu-Cheks routinely. Continue with sliding scale Humalog 2-12 units. SCD to the lateral lower extremity for DVT prophylaxis Patient to PT and OT for ongoing strengthening Recheck CBC and BMP tomorrow morning to follow blood counts, renal function and electrolytes 04/11 Reviewed admission urinalysis from yesterday revealing trace protein, plus blood , positive nitrates, 2+ leukocyte esterase, 5-10 RBCs with 10-20 WBCs with presence of yeast and bacteria. It is unclear if this is colonized and chronic. Given long-term indwelling Mills catheter. Given her complaints of urethral discomfort accompanied with positive urinalysis at this time we will go ahead and treat starting 1 gram of IV Rocephin. We did discuss that utilizing antibiotics need to be conservative given she is at risk for jackelin C. difficile. We will also change of Mills catheter today. Continue with topical fentanyl patch. Suspect that patient may not get adequate pain control from oral pain pills, she likely does not absorb this in her GI tract. Did discuss pain control further with rehabilitation attending, Dr. Joyner We'll recheck CBC and BMP tomorrow morning to follow blood counts, renal function and electrolyte Encourage patient to participate in physical therapy and occupational therapy as it is her goal that she will improve and be able to be discharged home. Case discussed with multiple disciplinary team members including PT, Nursing staff, infectious disease, IRU directer, Dr Joyner and Dr Grajeda 04/12/17 Abdominal wound: Continue care per wound team. Bacturia: Preliminary urine culture is showing gram-negative rods, yeast. Will await final culture report before initiating any antibiotic therapy. Suspect colonization. She had one isolated temperature of 100F. White count is trending down. Bilateral rales: Suspect atelectasis, but she has not had a chest x-ray since arrival. Will obtain portable chest x-ray. Encourage incentive spirometry. Respiratory therapy recommends an overnight oximetry, which will be done tonight. Macrocytic anemia: Hemoglobin 7.8. Assess vitamin B12 and folate. Repeat CBC tomorrow morning Continue TPN. Reassess BMP, magnesium and phosphorus levels tomorrow morning. Glucose has been reasonably controlled. Elevated LFTs: Possibility related to TPN. Will repeat tomorrow morning.
--- NOTE | 2017-04-12 14:08 | XRay Report ---
Indication: bilateral crackles PROCEDURE: XR chest 1V: Encounter: Initial Comparison: None Findings: Left PICC line in place with the tip projecting over the lower SVC. Linear strandy opacities in both lung bases. Lungs are hypoinflated. No pneumothorax or definite effusion. Heart size and mediastinal contours are within normal limits. Pulmonary vascularity appears normal. Impression: Hypoinflation with linear opacities in both lung bases probably representing atelectasis. .
[2017-04-12] MEDS: CEFTRIAXONE 1 G in NS 100 ML IV SCH (14:18)
--- NOTE | 2017-04-12 15:10 | IRU Progress Note ---
- Subjective/Serverity of Illness Despite several medical issues, patient was able to do limited physical therapy today. She actually made her outside for less than 5 minutes, and was very happy. She is planning on going to the dining [employer] for dinner tonight if we are able to manage drainage from the wound. Exam Vital Signs: Temperature 98.5 F 04/12/17 08:00 Pulse Rate 103 H 04/12/17 08:00 Respiratory Rate 24 04/12/17 08:00 Blood Pressure 117/69 04/12/17 08:00 Pulse Oximetry 98 04/12/17 08:00 Oxygen Delivery Method Room Air Telemetry Rhythm: Sinus Rhythm Height: 1.57 m Weight: 76.204 kg Body Mass Index: 30.7 - Constitutional Present: no acute distress - Routine Chest/Breast/Axilla Exam Chest wall: Absent: tenderness - Routine Respiratory Exam Present: crackles - Routine Cardiovascular Exam Present: RRR, murmur - Routine Abdominal Exam Comments: Leakage around wound bag. Staff actively working to solvethis. Results IRU - Labs Labs: hospitalist note and labs reviewed. Sepsis Assessment - Evaluation Sepsis screening result: No Definite Risk IRU A/P (1) Myopathy Current visit: Yes Status: Acute Pt tired and in pain, but says she is willing to work with PT and OT. She did beter yesterday and this am. Offered to change oral narcs to dose along with current patch as she has little chance to absorb orally, she would prefer to cont with orals. (2) Diabetes Qualifiers: Diabetes mellitus type: type 2 Current visit: Yes Status: Chronic Managed by Medical (3) Open abdominal wall wound Current visit: Yes Status: Acute Managed by [facility] wound care. sugical on standby if needed. (4) Decubitus ulcer Current visit: Yes Status: Acute Wound care and medical following. Pt encouraged to lay differently. DVT Prophylaxis: SCD's Resuscitation Status: Full Code - Course Hospital Course: Jovani Joyner MD: - Interventions to Obtain Goals PT Treatment Plan: Balance/Proprioception, Functional Activities, Gait Training , Patient/Family Education, Therapeutic Exercise OT Treatment Plan: ADL (Basic Care), Balance Training, Pt./Family Education, Ther. Exercise for ADL
--- NOTE | 2017-04-12 15:17 | IRU Plan of Care ---
IRU Overall Plan of Care - Patient Impairments (1) Diabetes Qualifiers: Diabetes mellitus type: type 2 Code(s): E11.9 - Type 2 diabetes mellitus without complications Status: Acute Classification: Present on IRF Admission, Diagnosis Requiring Medical Follow Up (2) Open abdominal wall wound Code(s): S31.109A - Unspecified open wound of abdominal wall, unspecified quadrant without penetration into peritoneal cavity, initial encounter Status : Acute Classification: Present on IRF Admission, Diagnosis Requiring Medical Follow Up (3) Decubitus ulcer Code(s): L89.90 - Pressure ulcer of unspecified site, unspecified stage Status : Acute Classification: Present on IRF Admission, Diagnosis Requiring Medical Follow Up (4) Myopathy Code(s): G72.9 - Myopathy, unspecified Status: Acute Classification: Present on IRF Admission, IRF Tx That Should Address Diagnosis (5) HTN (hypertension) Qualifiers: Hypertension type: essential hypertension Qualified Code(s): I10 - Essential (primary) hypertension Code(s): I10 - Essential (primary) hypertension Status: Acute Classification: Present on IRF Admission, Diagnosis Requiring Medical Follow Up (6) Hyponatremia Code(s): E87.1 - Hypo-osmolality and hyponatremia Status: Acute Classification: Present on IRF Admission, Diagnosis Requiring Medical Follow Up - Relevant Changes Relevant Changes: No Reviewed: I have reviewed the patient's information and concur with the finding and results of the pre-admission screen. Certification: I certify the patient for rehabilitation. - Medical Prognosis Medical Prognosis: Fair Vital Signs: Last Vital Signs Temp 98.5 F 04/12/17 08:00 Pulse 103 H 04/12/17 08:00 Resp 24 04/12/17 08:00 BP 117/69 04/12/17 08:00 Pulse Ox 98 04/12/17 08:00 - Anticipated Interventions Anticipated Interventions: The patient requires inpatient IRF care for PT, OT, and/or ST for residuals remaining from [] resulting in muscular weakness and strength deficits. Strength Deficits: Right Upper Extremity, Right Lower Extremity, Left Upper Extremity, Left Lower Extremity - FIM Ambulation Distance: 1 Number of Incontinent Voids: 1 - Current Functional Status Failed Alternative Therapy: Arrived from Acute Care Patient Requires: The patient requires oversight by rehabilitation physician to manage their rehabilitation treatment plan and multidisciplinary approach to care that can only be provided in an IRF and requires a multidisciplinary approach to care, provided by professional PTs, OTs, STs, dieticians, RTs, rehabilitation nurses and is not available in lesser levels of care. Physical Therapy Minutes: 90 Occupational Therapy Minutes: 90 Therapy: The patient is to receive therapy at least 5 days a week. - Anticipated LOS/Outcomes Anticipated Functional Outcome: Increase strength so the patient can be more involved in her daily activity. Ultimately we would help to get her back to independent living Anticipated DC Destination: Home Health Service Home Safety Plan: The patient will be provided with the development of a Home Safety Plan for return to a home or home-like environment and and to ensure safety post discharge. - Plan to Avoid Complications Barriers to Attaining Goals: Weakness, Balance, Endurance, Pain Control, Medical Limitation Plan to Avoid Complications: The patient cannot receive this care in a lesser intensive setting such as [facility] or Outpatient Therapy due to the patient requiring intense medical and surgical follow-up due to multiple open bowel fistula with severe weakness.
[2017-04-12] MEDS: MULTI TRACE ELEMENTS IV SCH (19:14)
[2017-04-12] MEDS: FOLIC ACID IV SCH (19:14)
[2017-04-12] MEDS: [UNRECOGNIZED DRUG - OTHER] IV SCH (19:14)
[2017-04-12] MEDS: MULTI VIT INFUSION IV SCH (19:14)
[2017-04-13] MEDS: Oxycodone *IR* 5 MG TABLET PO PRN ×5 (01:04→21:34)
[2017-04-13] MEDS: ONDANSETRON ODT 4 MG TABLET PO PRN (08:39)
[2017-04-13] MEDS: CETIRIZINE 10 MG TABLET PO SCH (08:40)
[2017-04-13] MEDS: SALINE FLUSH 10ml SYRINGE IV PRN (11:07)
[2017-04-13] MEDS: MICONAZOLE 2% POWDER 45gm TP SCH ×2 (11:08→22:15)
[2017-04-13] MEDS: ACETAMINOPHEN 500 MG TABLET PO PRN (11:16)
--- NOTE | 2017-04-13 12:34 | Pharmacy Consult-TPN/PPN ---
Pharmacy Consult-TPN/PPN - Laboratory Information Chemistry Turbidity < 20 (0-20) 04/13/17 05:07 Sodium 133 MEQ/L (134-144) L 04/13/17 05:07 Potassium 3.6 MEQ/L (3.6-5) 04/13/17 05:07 Chloride 100 MEQ/L (98-107) 04/13/17 05:07 Carbon Dioxide 27 MEQ/L (22-30) 04/13/17 05:07 Anion Gap 6 MEQ/L (5-15) 04/13/17 05:07 BUN 35.0 MG/DL (7-17) H 04/13/17 05:07 Creatinine 0.8 MG/DL (0.7-1.2) 04/13/17 05:07 GFR Calculation 79 04/13/17 05:07 BUN/Creatinine Ratio 44 RATIO (6-26) H 04/13/17 05:07 Glucose 91 MG/DL (65-110) 04/13/17 05:07 Glucometer 126 mg/dL (65-110) 04/13/17 07:12 Calculated Osmolality 264 MOSM/KG (261-280) 04/13/17 05:07 Calcium 8.4 MG/DL (8.4-10.2) 04/13/17 05:07 Phosphorus 4.8 MG/DL (2.5-4.5) H 04/13/17 05:07 Magnesium 2.0 MG/DL (1.6-2.3) 04/13/17 05:07 Total Bilirubin 1.70 MG/DL (0.20-1.30) H 04/13/17 05:07 Icterus Index < 2 (0-7) 04/13/17 05:07 AST 43 U/L (14-36) H 04/13/17 05:07 ALT 59 U/L (9-52) H 04/13/17 05:07 Alkaline Phosphatase 244 U/L (38-126) H 04/13/17 05:07 Total Protein 5.6 G/DL (6.3-8.2) L 04/13/17 05:07 Albumin 2.4 G/DL (3.5-5.0) L 04/13/17 05:07 Globulin 3.2 G/DL (2.4-3.6) 04/13/17 05:07 Albumin/Globulin Ratio 0.8 RATIO (1.1-2.2) L 04/13/17 05:07 Vitamin B12 799 PG/ML (239-931) 04/13/17 05:07 Folate > 20.0 NG/ML (2.76-20) H 04/13/17 05:07 Specimen Hemolysis < 15 (0-25) 04/13/17 05:07 Intake and Output 04/12/17 04/13/17 04/14/17 06:59 06:59 06:59 Intake Total 2168.75 / 2168.75 360 / 360 Output Total 560 / 560 800 / 800 800 / 800 Balance 1608.75 / 1608.75 -800 / -800 -440 / -440 Weight 76.204 kg 76.204 kg Intake: IV 2168.75 / 2168.75 Rocephin 1 G In Normal 100 / 100 Saline 100 ml @ 200 mls/ hr IV Q24H [facility] Rx#: [id number] Infuvite Adult 10 ml 2068.75 / 2068.75 Multi-Trace Elements 1 ml Folate 2 mg Vitamin B-1 100 mg Sodium Acetate 40 Meq In TPN - Standard Formula 2,000 ml @ 75 mls /hr IV .Q24H [facility] Rx#: [id number] Oral 360 / 360 Output: Stool 800 / 800 800 / 800 Urine Amount (Catheter) 560 / 560 Other: # Incontinent Voids 1 # Incontinent Bowel 1 Movements # Unmeasured Emesis 1 Episodes - Consult Information We will add 40mEq of NaCl to each bag of standard TPN formula starting with next bag of TPN today. I ordered a phosphorus in the a.m. to determine any hyperphosphatemia. Thanks
--- NOTE | 2017-04-13 14:31 | IRU Progress Note ---
- Subjective/Serverity of Illness Patient did work with physical therapy yesterday evening with issues with wound coverage and drainage. She did not go out for lunch today. Continues to be very frustrated with both the pain and the continued leakage. Declines psych eval. Exam Vital Signs: Oxygen Delivery Method Room Air Telemetry Rhythm: Sinus Rhythm Height: 1.57 m Weight: 76.204 kg Body Mass Index: 30.7 - Constitutional Present: no acute distress, average body habitus, cooperative - Routine Neck Exam Present: supple, full ROM - Routine Chest/Breast/Axilla Exam Chest wall: Absent: tenderness - Routine Respiratory Exam Present: crackles ( very minimal, bilat) - Routine Abdominal Exam Comments: Open abd with bowel bag inplace, but fitting poorly. New, appropriate bags due today. Sepsis Assessment - Evaluation Sepsis screening result: No Definite Risk IRU A/P (1) Diabetes Qualifiers: Diabetes mellitus type: type 2 Current visit: Yes Status: Chronic Managed by Medical (2) Open abdominal wall wound Current visit: Yes Status: Acute Managed by Medical and wound team. Correct size of bags due today. Should minimize drainage, then Pt willl go out to meals. She did go to PT, but within 25 minm was leaking significant ammounts of stool onto the therapy table and floor and herself. (3) Decubitus ulcer Current visit: Yes Status: Acute continue current care. (4) Myopathy Current visit: Yes Status: Acute Continue with plan of care from PT adn OT. Will need intensive therapy over weekend and hopefully she can improve and fulfill obligation to therapy. Insurance will reeval on sunday. She is aware that if not able to do full Therapy committment,that she may have to [facility]. (5) HTN (hypertension) Qualifiers: Hypertension type: essential hypertension Qualified Code(s): I10 - Essential (primary) hypertension Current visit: Yes Status: Chronic (6) Hyponatremia Current visit: Yes Status: Acute DVT Prophylaxis: SCD's Resuscitation Status: Full Code - Course Hospital Course: Jovani Joyner MD: - Interventions to Obtain Goals PT Treatment Plan: Balance/Proprioception, Functional Activities, Gait Training , Patient/Family Education, Therapeutic Exercise OT Treatment Plan: ADL (Basic Care), Balance Training, Pt./Family Education, Ther. Exercise for ADL
[2017-04-13] MEDS: PROMETHAZINE 12.5 MG TABLET PO PRN (17:43)
[2017-04-13] MEDS ORDERED: FOLIC ACID IV SCH (18:01)
[2017-04-13] MEDS ORDERED: [UNRECOGNIZED DRUG - OTHER] IV SCH (18:01)
[2017-04-13] MEDS ORDERED: MULTI TRACE ELEMENTS IV SCH (18:01)
[2017-04-13] MEDS ORDERED: MULTI VIT INFUSION IV SCH (18:01)
[2017-04-13] MEDS: MULTI VIT INFUSION IV SCH (18:23)
[2017-04-13] MEDS: FOLIC ACID IV SCH (18:23)
[2017-04-13] MEDS: [UNRECOGNIZED DRUG - OTHER] IV SCH (18:23)
[2017-04-13] MEDS: MULTI TRACE ELEMENTS IV SCH (18:23)
[2017-04-13] MEDS: ZOLPIDEM 6.25 MG PO PRN (22:28)
[2017-04-14] MEDS: Oxycodone *IR* 5 MG TABLET PO PRN ×3 (08:13→20:37)
[2017-04-14] MEDS: MICONAZOLE 2% POWDER 45gm TP SCH ×2 (09:16→20:44)
[2017-04-14] MEDS: CETIRIZINE 10 MG TABLET PO SCH (09:23)
[2017-04-14] MEDS ORDERED: FALL RISK - PHARMACY CONSULT MC PRN (10:13)
[2017-04-14] MEDS: ACETAMINOPHEN 500 MG TABLET PO PRN ×2 (10:40→20:34)
--- NOTE | 2017-04-14 10:55 | Pharmacy Consult-TPN/PPN ---
Pharmacy Consult-TPN/PPN - Laboratory Information Chemistry Turbidity < 20 (0-20) 04/14/17 05:01 Sodium 133 MEQ/L (134-144) L 04/14/17 05:01 Potassium 3.7 MEQ/L (3.6-5) 04/14/17 05:01 Chloride 98 MEQ/L (98-107) 04/14/17 05:01 Carbon Dioxide 27 MEQ/L (22-30) 04/14/17 05:01 Anion Gap 8 MEQ/L (5-15) 04/14/17 05:01 BUN 37.0 MG/DL (7-17) H 04/14/17 05:01 Creatinine 0.9 MG/DL (0.7-1.2) 04/14/17 05:01 GFR Calculation 69 04/14/17 05:01 BUN/Creatinine Ratio 41 RATIO (6-26) H 04/14/17 05:01 Glucose 89 MG/DL (65-110) 04/14/17 05:01 Glucometer 127 mg/dL (65-110) 04/13/17 21:13 Calculated Osmolality 264 MOSM/KG (261-280) 04/14/17 05:01 Calcium 8.5 MG/DL (8.4-10.2) 04/14/17 05:01 Phosphorus 4.9 MG/DL (2.5-4.5) H 04/14/17 05:01 Magnesium 2.0 MG/DL (1.6-2.3) 04/13/17 05:07 Total Bilirubin 2.00 MG/DL (0.20-1.30) H 04/14/17 05:01 Icterus Index < 2 (0-7) 04/14/17 05:01 AST 83 U/L (14-36) H D 04/14/17 05:01 ALT 99 U/L (9-52) H 04/14/17 05:01 Alkaline Phosphatase 350 U/L (38-126) H D 04/14/17 05:01 Total Protein 5.9 G/DL (6.3-8.2) L 04/14/17 05:01 Albumin 2.5 G/DL (3.5-5.0) L 04/14/17 05:01 Globulin 3.4 G/DL (2.4-3.6) 04/14/17 05:01 Albumin/Globulin Ratio 0.7 RATIO (1.1-2.2) L 04/14/17 05:01 Vitamin B12 799 PG/ML (239-931) 04/13/17 05:07 Folate > 20.0 NG/ML (2.76-20) H 04/13/17 05:07 Specimen Hemolysis < 15 (0-25) 04/14/17 05:01 Intake and Output 04/13/17 04/14/17 04/15/17 06:59 06:59 06:59 Intake Total 3042.4 / 3042.4 Output Total 800 / 800 4350 / 4350 Balance -800 / -800 -1307.6 / -1307.6 Weight 76.204 kg Intake: IV 2011. Infuvite Adult 10 ml 2011. Multi-Trace Elements 1 ml Folate 2 mg Vitamin B-1 100 mg In TPN - Standard Formula 2,000 ml @ 75 mls /hr IV .Q24H [facility] Rx#: [id number] Oral 1030 / 1030 Output: Stool 800 / 800 3900 / 3900 Urine Amount (Catheter) 450 / 450 Other: # Incontinent Voids 1 - Consult Information We will change standard TPN formula to custom TPN formula so that we may eliminate all phosphate at this time. We will continue to monitor phosphate and add into TPN formula when it is appropriate. We will be adding additional NaCl to normalize serum sodium. We will continue to run TPN at 75mL per hour. Thanks
--- NOTE | 2017-04-14 11:23 | Progress Note ---
Subjective: Laura is seen today in follow up for her open abdominal wall wound and decubitus ulcerations. She is seen while sitting in her recliner and complains of being very uncomfortable, requesting to be placed back into bed. She complains of pain to her coccyx with sitting and significant education regarding the importance of relieving pressure from that area in light of her ulcerations is very important. She is assisted to a resting position on her right side with pillows placed against her back and buttock. She denies any other complaints including no fevers, chills, chest pain, shortness of breath, nausea or vomiting. Her christine catheter is actively draining yellow-orange urine. She continues to receive TPN and is on fluid restriction. She complains of 7/10 constantly to her abdomen and buttock despite pain medications. Labs today showed stable anemia with HGB at 7.8 as well as stable hyponatremia with sodium at 133. Phophorus was elevated at 4.9 and pharmacy notified. Blood sugars are stable and well controlled. LFTs are trending up with AST at 83 and ALT at 99. Cardiac exam revealed regular rate and rhythm and lungs are clear to auscultation. Abdominal wound not visualized on exam. No edema noted to lower extremities. 2+ pedal pulses present. Objective Vital signs: Temperature 97.9 F 04/14/17 08:49 Pulse Rate 112 H 04/14/17 08:49 Respiratory Rate 18 04/14/17 08:49 Blood Pressure 101/65 04/14/17 08:49 Pulse Oximetry 98 04/14/17 08:49 Oxygen Delivery Method Room Air Body Mass Index: 30.7 - Constitutional Present: well nourished, well developed, cooperative - Routine HEENT Exam Head: Present: normocephalic, atraumatic Eye: Present: EOMI. Absent: conjunctival icterus, scleral injection ENT: Present: oropharynx clear - Routine Respiratory Exam Present: CTA bilaterally. Absent: stridor, wheezes, crackles - Routine Cardiovascular Exam Present: RRR, S1, S2 - Routine Abdominal Exam Present: soft, tenderness. Absent: rebound, guarding - Routine Extremities Exam Present: no edema, non tender - Routine Back/Spine/Pelvis Exam Back/Spine: Absent: erythema, warmth Pelvis: Present: coccyx tenderness - Routine Musculoskeletal Exam Musculoskeletal: Present: no clubbing or cyanosis, moving extremities well - Routine Skin Exam Present: dry, warm. Absent: jaundice - Routine Neurological Exam Present: alert, oriented X3, moving all extremities - Routine Lymphatic Exam Lymphatic: Absent: lymphedema - Routine Psychiatric Exam Present: normal affect, cooperative Results - Labs CBC & Chem 7: 04/14/17 05:01 04/14/17 05:01 Microbiology Results: Microbiology 04/10/17 21:22 Urine, Cath Christine Urine Culture - Final Klebsiella pneumoniae Assessment and Plan (1) Decubitus ulcer Current visit: Yes Status: Acute (2) Open abdominal wall wound Current visit: Yes Status: Acute (3) Hyponatremia Current visit: Yes Status: Acute (4) HTN (hypertension) Current visit: Yes Status: Chronic (5) Diabetes Current visit: Yes Status: Chronic (6) Myopathy Current visit: Yes Status: Acute DVT Prophylaxis: SCD's Assessment and Plan: Abdominal wound/decubitus ulcers: Continue care per wound team. Bacturia: Preliminary urine culture is showing gram-negative rods, yeast. Culture showed Klebsiella pneumonia. Suspect colonization. WBC stable at 9.7 and she remains afebrile. Continue to monitor closely. Will hold off on antibiotics for now. Bilateral rales: Suspect atelectasis. CXR on 04/12 showed atelectasis. Encourage incentive spirometry. Technique and importance reviewed with patient on exam. Respiratory therapy recommends an overnight oximetry - results pending. Macrocytic anemia: Hemoglobin stable at 7.9. Assess vitamin B12 and folate - results pending. Continue to monitor trends. Continue TPN. Persistent hyponatremia with sodium at 133. Continue fluid restriction. Elevated phosphorus - results communicated with pharmacy which will adjust TPN accordingly. Glucose has been reasonably controlled. Elevated LFTs: Possibility related to TPN and trending up - monitor closely. Will recheck labs - CBC, CMP and phosphorus on 04/16. - Time spent with patient 25 - 35 minutes Sepsis Assessment - Evaluation Sepsis screening result: No Definite Risk Hospital Course Summary Disclaimer: The visit summary below is not to be considered part of the above Progress Note. Hospital Course: Other ongoing medical problems. Recent pancreatitis Recent acute kidney injury Recurrent peritonitis Colocutaneous fistula Recent septic shock with Enterococcus Faecalis 04/10- Admission Plan Patient has a very complex past medical history Hospital services will continue to follow patient during her stay in the rehabilitation unit. Consult placed to wound care team for ongoing abdominal wound management and dressing changes. It was also reported that patient had a Consultation is placed to the pharmacy for TPN for ongoing nutrition. Patient is to be on a clear liquid diet, however, may not have more than 150 ML' s every hour while awake Monitor Accu-Cheks routinely. Continue with sliding scale Humalog 2-12 units. SCD to the lateral lower extremity for DVT prophylaxis Patient to PT and OT for ongoing strengthening Recheck CBC and BMP tomorrow morning to follow blood counts, renal function and electrolytes 04/11 Reviewed admission urinalysis from yesterday revealing trace protein, plus blood , positive nitrates, 2+ leukocyte esterase, 5-10 RBCs with 10-20 WBCs with presence of yeast and bacteria. It is unclear if this is colonized and chronic. Given long-term indwelling Christine catheter. Given her complaints of urethral discomfort accompanied with positive urinalysis at this time we will go ahead and treat starting 1 gram of IV Rocephin. We did discuss that utilizing antibiotics need to be conservative given she is at risk for jackelin C. difficile. We will also change of Christine catheter today. Continue with topical fentanyl patch. Suspect that patient may not get adequate pain control from oral pain pills, she likely does not absorb this in her GI tract. Did discuss pain control further with rehabilitation attending, Dr. Joyner We'll recheck CBC and BMP tomorrow morning to follow blood counts, renal function and electrolyte Encourage patient to participate in physical therapy and occupational therapy as it is her goal that she will improve and be able to be discharged home. Case discussed with multiple disciplinary team members including PT, Nursing staff, infectious disease, IRU directer, Dr Joyner and Dr Grajeda 04/12/17 Abdominal wound: Continue care per wound team. Bacturia: Preliminary urine culture is showing gram-negative rods, yeast. Will await final culture report before initiating any antibiotic therapy. Suspect colonization. She had one isolated temperature of 100F. White count is trending down. Bilateral rales: Suspect atelectasis, but she has not had a chest x-ray since arrival. Will obtain portable chest x-ray. Encourage incentive spirometry. Respiratory therapy recommends an overnight oximetry, which will be done tonight. Macrocytic anemia: Hemoglobin 7.8. Assess vitamin B12 and folate. Repeat CBC tomorrow morning Continue TPN. Reassess BMP, magnesium and phosphorus levels tomorrow morning. Glucose has been reasonably controlled. Elevated LFTs: Possibility related to TPN. Will repeat tomorrow morning. 04/14/17 11:37 Abdominal wound/decubitus ulcers: Continue care per wound team. Bacturia: Preliminary urine culture is showing gram-negative rods, yeast. Culture showed Klebsiella pneumonia. Suspect colonization. WBC stable at 9.7 and she remains afebrile. Continue to monitor closely. Will hold off on antibiotics for now. Bilateral rales: Suspect atelectasis. CXR on 04/12 showed atelectasis. Encourage incentive spirometry. Technique and importance reviewed with patient on exam. Respiratory therapy recommends an overnight oximetry - results pending. Macrocytic anemia: Hemoglobin stable at 7.9. Assess vitamin B12 and folate - results pending. Continue to monitor trends. Continue TPN. Persistent hyponatremia with sodium at 133. Continue fluid restriction. Elevated phosphorus - results communicated with pharmacy which will adjust TPN accordingly. Glucose has been reasonably controlled. Elevated LFTs: Possibility related to TPN and trending up - monitor closely. Will recheck labs - CBC, CMP and phosphorus on 04/16.
[2017-04-14] MEDS: INSULIN ASPART 100unit/ml INJECTION SQ PRN (11:25)
[2017-04-14] MEDS: PROMETHAZINE 12.5 MG TABLET PO PRN ×2 (13:48→20:42)
[2017-04-14] MEDS: SALINE FLUSH 10ml SYRINGE IV PRN (17:47)
[2017-04-14] MEDS ORDERED: [UNRECOGNIZED DRUG - OTHER] IV SCH (18:00)
[2017-04-14] MEDS ORDERED: POTASSIUM CHLORIDE IV SCH (18:00)
[2017-04-14] MEDS ORDERED: SODIUM CHLORIDE IV SCH (18:00)
[2017-04-14] MEDS ORDERED: SODIUM ACETATE IV SCH (18:00)
[2017-04-14] MEDS: ZOLPIDEM 6.25 MG PO PRN (23:28)
[2017-04-15] MEDS: LEVOFLOXACIN PB 500 MG/100 ML BAG IV SCH (09:51)
[2017-04-15] MEDS: SALINE FLUSH 10ml SYRINGE IV PRN ×5 (09:52→23:37)
[2017-04-15] MEDS: Oxycodone *IR* 5 MG TABLET PO PRN ×4 (09:52→23:44)
[2017-04-15] MEDS: PROMETHAZINE 12.5 MG TABLET PO PRN (09:53)
[2017-04-15] MEDS: CETIRIZINE 10 MG TABLET PO SCH (09:53)
[2017-04-15] MEDS: MICONAZOLE 2% POWDER 45gm TP SCH ×2 (09:54→22:39)
--- NOTE | 2017-04-15 10:47 | Pharmacy Consult-TPN/PPN ---
Pharmacy Consult-TPN/PPN - Laboratory Information Chemistry Turbidity < 20 (0-20) 04/15/17 04:47 Sodium 133 MEQ/L (134-144) L 04/15/17 04:47 Potassium 4.2 MEQ/L (3.6-5) 04/15/17 04:47 Chloride 97 MEQ/L (98-107) L 04/15/17 04:47 Carbon Dioxide 30 MEQ/L (22-30) 04/15/17 04:47 Anion Gap 6 MEQ/L (5-15) 04/15/17 04:47 BUN 41.0 MG/DL (7-17) H 04/15/17 04:47 Creatinine 1.0 MG/DL (0.7-1.2) 04/15/17 04:47 GFR Calculation 61 04/15/17 04:47 BUN/Creatinine Ratio 41 RATIO (6-26) H 04/15/17 04:47 Glucose 84 MG/DL (65-110) 04/15/17 04:47 Glucometer 154 mg/dL (65-110) 04/14/17 20:37 Calculated Osmolality 265 MOSM/KG (261-280) 04/15/17 04:47 Calcium 8.8 MG/DL (8.4-10.2) 04/15/17 04:47 Phosphorus 3.8 MG/DL (2.5-4.5) 04/15/17 04:47 Magnesium 2.0 MG/DL (1.6-2.3) 04/13/17 05:07 Total Bilirubin 1.80 MG/DL (0.20-1.30) H 04/15/17 04:47 Icterus Index < 2 (0-7) 04/15/17 04:47 AST 54 U/L (14-36) H 04/15/17 04:47 ALT 82 U/L (9-52) H 04/15/17 04:47 Alkaline Phosphatase 345 U/L (38-126) H 04/15/17 04:47 Total Protein 6.2 G/DL (6.3-8.2) L 04/15/17 04:47 Albumin 2.6 G/DL (3.5-5.0) L 04/15/17 04:47 Globulin 3.6 G/DL (2.4-3.6) 04/15/17 04:47 Albumin/Globulin Ratio 0.7 RATIO (1.1-2.2) L 04/15/17 04:47 Vitamin B12 799 PG/ML (239-931) 04/13/17 05:07 Folate > 20.0 NG/ML (2.76-20) H 04/13/17 05:07 Specimen Hemolysis < 15 (0-25) 04/15/17 04:47 Intake and Output 04/14/17 04/15/17 04/16/17 06:59 06:59 06:59 Intake Total 3042.4 / 3042.4 Output Total 4350 / 4350 2500 / 2500 700 / 700 Balance -1307.6 / -1307.6 -2500 / -2500 -700 / -700 Intake: IV Infuvite Adult 10 ml Multi-Trace Elements 1 ml Folate 2 mg Vitamin B-1 100 mg In TPN - Standard Formula 2,000 ml @ 75 mls /hr IV .Q24H [facility] Rx#: [id number] Oral 1030 / 1030 Output: Stool 3900 / 3900 1900 / 1900 700 / 700 Emesis 200 / 200 Urine Amount (Catheter) 450 / 450 400 / 400 - Consult Information We will make some adjustments to the next TPN formula. Increase NaCl to 100mEq per bag. Decrease KCl to 40mEq per bag. Add potassium phosphate 22mEq per bag. All other ingredients remain the same. Continue to run at 75mL per hour. Thanks
--- NOTE | 2017-04-15 11:32 | Progress Note ---
<Santa Cheng V - Last Filed: 04/15/17 11:24> Subjective: Laura is this morning sleeping in bed. She is without complaints and denies having any new symptoms or worsening pain. Noted to have a temp overnight at 101.7 with tachycardia. Currently heart rate in the 90's. BP remains stable at her baseline. Temp has resolved this morning. Noted Leukocytosis up to 14.4 today. Blood cultures and CXR obtained. Objective Vital signs: Temperature 98.5 F 04/15/17 09:36 Pulse Rate 105 H 04/15/17 09:36 Respiratory Rate 18 04/15/17 09:36 Blood Pressure 101/65 04/15/17 09:36 Pulse Oximetry 98 04/15/17 09:36 Oxygen Delivery Method Room Air Body Mass Index: 30.7 - Constitutional Present: no acute distress, well nourished, well developed - Routine HEENT Exam Eye: Present: EOMI, PERRL ENT: Present: mucous membranes moist, dentition normal - Routine Respiratory Exam Present: CTA bilaterally. Absent: wheezes - Routine Cardiovascular Exam Present: RRR, S1, S2. Absent: murmur - Routine Abdominal Exam Present: soft, non distended. Absent: normoactive bowel sounds (hypoactive), tenderness Comments: open with suction intact. - Routine Extremities Exam Present: clubbing (bilateral lower ext), pulses intact, normal capillary refill - Routine Back/Spine/Pelvis Exam Back/Spine: Present: full ROM - Routine Skin Exam Present: dry, warm - Routine Neurological Exam Present: alert, oriented X3, CN II-XII intact - Routine Lymphatic Exam Lymphatic: Absent: adenopathy - Routine Psychiatric Exam Present: normal affect, normal thought process Results - Labs CBC & Chem 7: 04/15/17 04:47 04/15/17 04:47 Microbiology Results: Microbiology 04/14/17 21:37 Peripheral/Iv Start Blood Culture - Preliminary Culture Initiated - Results Pending 04/14/17 21:30 Peripheral/Iv Start Blood Culture - Preliminary Culture Initiated - Results Pending 04/10/17 21:22 Urine, Cath Mills Urine Culture - Final Klebsiella pneumoniae Assessment and Plan (1) HTN (hypertension) Current visit: Yes Status: Chronic (2) Diabetes Current visit: Yes Status: Chronic (3) Open abdominal wall wound Current visit: Yes Status: Acute (4) Decubitus ulcer Current visit: Yes Status: Acute (5) Myopathy Current visit: Yes Status: Acute (6) Hyponatremia Current visit: Yes Status: Acute Assessment and Plan: 04/15/17 Abdominal wound/decubitus ulcers: Continue care per wound team. Bacturia: Culture showed Klebsiella pneumoniae present on admission. Given increase in white count, accompanied with fever and tachycardia overnight. Blood Cultures were obtained as well as chest x-ray. Reviewed culture and sensitivity of urinalysis. Will start IV Levaquin 500 milligrams for antimicrobial coverage. Macrocytic anemia: Hemoglobin stable at 8.0. Assess vitamin B12 and folate - results pending. Continue to monitor trends. Continue TPN. Persistent hyponatremia with sodium at 133. Continue oral fluid restriction. Monitor regular, electrolytes Elevated LFTs: Likely related to recent pancreatitis. LFTs continue to trend down. IV Intralipid 20%, (fat emulsion) remains on hold. Will recheck CBC and CMP tomorrow to follow blood counts, renal function, LFTs and electrolytes. Will discuss care with Dr Soy clark Sepsis Assessment - Evaluation Sepsis screening result: Sepsis Risk Hospital Course Summary Disclaimer: The visit summary below is not to be considered part of the above Progress Note. Hospital Course: Other ongoing medical problems. Recent pancreatitis Recent acute kidney injury Recurrent peritonitis Colocutaneous fistula Recent septic shock with Enterococcus Faecalis 04/10- Admission Plan Patient has a very complex past medical history Hospital services will continue to follow patient during her stay in the rehabilitation unit. Consult placed to wound care team for ongoing abdominal wound management and dressing changes. It was also reported that patient had a Consultation is placed to the pharmacy for TPN for ongoing nutrition. Patient is to be on a clear liquid diet, however, may not have more than 150 ML' s every hour while awake Monitor Accu-Cheks routinely. Continue with sliding scale Humalog 2-12 units. SCD to the lateral lower extremity for DVT prophylaxis Patient to PT and OT for ongoing strengthening Recheck CBC and BMP tomorrow morning to follow blood counts, renal function and electrolytes 04/11 Reviewed admission urinalysis from yesterday revealing trace protein, plus blood , positive nitrates, 2+ leukocyte esterase, 5-10 RBCs with 10-20 WBCs with presence of yeast and bacteria. It is unclear if this is colonized and chronic. Given long-term indwelling Mills catheter. Given her complaints of urethral discomfort accompanied with positive urinalysis at this time we will go ahead and treat starting 1 gram of IV Rocephin. We did discuss that utilizing antibiotics need to be conservative given she is at risk for jackelin C. difficile. We will also change of Mills catheter today. Continue with topical fentanyl patch. Suspect that patient may not get adequate pain control from oral pain pills, she likely does not absorb this in her GI tract. Did discuss pain control further with rehabilitation attending, Dr. Joyner We'll recheck CBC and BMP tomorrow morning to follow blood counts, renal function and electrolyte Encourage patient to participate in physical therapy and occupational therapy as it is her goal that she will improve and be able to be discharged home. Case discussed with multiple disciplinary team members including PT, Nursing staff, infectious disease, IRU directer, Dr Joyner and Dr Grajeda 04/12/17 Abdominal wound: Continue care per wound team. Bacturia: Preliminary urine culture is showing gram-negative rods, yeast. Will await final culture report before initiating any antibiotic therapy. Suspect colonization. She had one isolated temperature of 100F. White count is trending down. Bilateral rales: Suspect atelectasis, but she has not had a chest x-ray since arrival. Will obtain portable chest x-ray. Encourage incentive spirometry. Respiratory therapy recommends an overnight oximetry, which will be done tonight. Macrocytic anemia: Hemoglobin 7.8. Assess vitamin B12 and folate. Repeat CBC tomorrow morning Continue TPN. Reassess BMP, magnesium and phosphorus levels tomorrow morning. Glucose has been reasonably controlled. Elevated LFTs: Possibility related to TPN. Will repeat tomorrow morning. 04/14/17 11:37 Abdominal wound/decubitus ulcers: Continue care per wound team. Bacturia: Preliminary urine culture is showing gram-negative rods, yeast. Culture showed Klebsiella pneumonia. Suspect colonization. WBC stable at 9.7 and she remains afebrile. Continue to monitor closely. Will hold off on antibiotics for now. Bilateral rales: Suspect atelectasis. CXR on 04/12 showed atelectasis. Encourage incentive spirometry. Technique and importance reviewed with patient on exam. Respiratory therapy recommends an overnight oximetry - results pending. Macrocytic anemia: Hemoglobin stable at 7.9. Assess vitamin B12 and folate - results pending. Continue to monitor trends. Continue TPN. Persistent hyponatremia with sodium at 133. Continue fluid restriction. Elevated phosphorus - results communicated with pharmacy which will adjust TPN accordingly. Glucose has been reasonably controlled. Elevated LFTs: Possibility related to TPN and trending up - monitor closely. Will recheck labs - CBC, CMP and phosphorus on 04/16. 04/15/17 Abdominal wound/decubitus ulcers: Continue care per wound team. Bacturia: Culture showed Klebsiella pneumoniae present on admission. Given increase in white count, accompanied with fever and tachycardia overnight. Blood Cultures were obtained as well as chest x-ray. Reviewed culture and sensitivity of urinalysis. Will start IV Levaquin 500 milligrams for antimicrobial coverage. Macrocytic anemia: Hemoglobin stable at 8.0. Assess vitamin B12 and folate - results pending. Continue to monitor trends. Continue TPN. Persistent hyponatremia with sodium at 133. Continue oral fluid restriction. Monitor regular, electrolytes Elevated LFTs: Likely related to recent pancreatitis. LFTs continue to trend down. IV Intralipid 20%, (fat emulsion) remains on hold. Will recheck CBC and CMP tomorrow to follow blood counts, renal function, LFTs and electrolytes. Will discuss care with Dr Soy clark <Yaz Olivier - Last Filed: 04/15/17 17:24> Objective Vital signs: Temperature 98.8 F 04/15/17 16:53 Pulse Rate 112 H 04/15/17 16:53 Respiratory Rate 20 04/15/17 16:53 Blood Pressure 114/69 04/15/17 16:53 Pulse Oximetry 99 04/15/17 16:53 Oxygen Delivery Method Room Air Results - Labs CBC & Chem 7: 04/15/17 04:47 04/15/17 04:47 Microbiology Results: Microbiology 04/14/17 21:37 Peripheral/Iv Start Blood Culture - Preliminary Culture Initiated - Results Pending 04/14/17 21:30 Peripheral/Iv Start Blood Culture - Preliminary Culture Initiated - Results Pending 04/10/17 21:22 Urine, Cath Mills Urine Culture - Final Klebsiella pneumoniae Assessment and Plan (1) HTN (hypertension) Current visit: Yes Status: Chronic (2) Diabetes Current visit: Yes Status: Chronic (3) Open abdominal wall wound Current visit: Yes Status: Acute (4) Decubitus ulcer Current visit: Yes Status: Acute (5) Myopathy Current visit: Yes Status: Acute (6) Hyponatremia Current visit: Yes Status: Acute Assessment and Plan: 04/15/2017-I reviewed this chart, the patient history, and the [employer]'s/PA's documented findings as above. We discussed and formulated the assessment and plan as above with the additions below. I've seen and examined the patient independently.-Dr. Olivier Patient was seen in her room today accompanied by her and young son. Patient appears chronically ill and weak. She states she is feeling better today than she had the last several days. She states she is feeling stronger. She did notice some fevers and chills last night but that is better today. The patient underwent chest x-ray, UA and blood cultures last evening. She has a chronic indwelling Mills. On 04/10/2017 she did have signs of UTI on UA and culture showed Klebsiella pneumoniae but they elected not to treat since she was asymptomatic. Repeat UA last night is improved. Blood cultures are so far negative. Chest x-ray showed no acute abnormalities. The patient was started on Levaquin for possible UTI. The patient's reports that she has had multiple central line and PICC line infections in the past. The patient has been afebrile today. Vital signs are stable. The patient is still on a clear liquid diet because of her enterocutaneous fistulas. On exam the patient appears chronically ill. HEENT reveals sclerae to be anicteric and Norflex is moist. Chest is clear to auscultation. Cardiovascular reveals a borderline tachycardic rate with irregular rhythm. Abdomen exam reveals a large open abdominal wound with exposed bowel. There is a clear dressing over the abdomen which is hooked up to suction. Extremities are free of edema. Neurologic reveals strength in the upper extremities to be about a 4. She has decreased strength in the legs but it is equal bilaterally. White count this morning is 14.4 with 53% neutrophils and 0.4% immature grams. Hemoglobin is stable at 8. Platelets are 508 which it been trending up. B-12 and folate have been checked and are not low. Will check iron studies. The patient's liver enzymes are trending down. Impression Fever of unknown cause in a patient who is high risk for recurrent infection. Levaquin was started today for possible UTI, however analysis today looks better than one week ago. Blood cultures are pending. Will consult infectious disease. Open abdominal wound Multiple enterocutaneous fistulas History of pancreatitis with reported pseudocyst Macrocytic anemia with normal B-12 and folate levels Malnutrition requiring TPN Generalized weakness secondary to prolonged medical illness History of neuroendocrine tumor Mild hypernatremia Thrombocytosis Elevated liver enzymes-possibly secondary to TPN Plan Continue antibiotics for now. Consult Dr. Puente to see tomorrow. We'll check iron studies Continue TPN for nutrition. Continue on clear liquids regarding enterocutaneous fistulas. Likely need to review [facility] records to determine if follow-up is needed regarding pancreatitis, question will pseudocyst, abdominal wound Continue therapies for weakness Recheck CBC and CMP tomorrow. Hospital Course Summary Disclaimer: The visit summary below is not to be considered part of the above Progress Note.
--- NOTE | 2017-04-15 11:54 | XRay Report ---
Indication: fever PROCEDURE: XR chest 1V: Encounter: Initial Comparison: April 12, 2017 Findings: Left PICC line remains in stable position. Lungs are hypoinflated but grossly clear. Prior areas of atelectasis have resolved. No pneumothorax or effusion. Heart size and mediastinal contours are stable. Pulmonary vascularity appears normal. Impression: Resolved atelectasis. No acute cardiopulmonary disease. .
[2017-04-15] MEDS ORDERED: POTASSIUM CHLORIDE IV SCH (18:00)
[2017-04-15] MEDS ORDERED: SODIUM ACETATE IV SCH (18:00)
[2017-04-15] MEDS ORDERED: SODIUM CHLORIDE IV SCH (18:00)
[2017-04-15] MEDS ORDERED: [UNRECOGNIZED DRUG - OTHER] IV SCH (18:00)
[2017-04-15] MEDS: INSULIN ASPART 100unit/ml INJECTION SQ PRN (22:47)
[2017-04-16] MEDS: SALINE FLUSH 10ml SYRINGE IV PRN ×5 (04:30→22:57)
--- NOTE | 2017-04-16 08:11 | IRU Progress Note ---
- Subjective/Serverity of Illness Difficulty with drainage and overall ctivity. Pt did try PT;/ OT today, but rapidly became too tired and could not complete. Held. Exam Vital Signs: Temperature 100.0 F 04/15/17 19:46 Pulse Rate 121 H 04/15/17 19:46 Respiratory Rate 20 04/15/17 19:46 Blood Pressure 104/60 04/15/17 19:46 Pulse Oximetry 97 04/15/17 19:46 Oxygen Delivery Method Room Air Telemetry Rhythm: Sinus Rhythm Height: 1.57 m Weight: 76.204 kg Body Mass Index: 30.7 - Constitutional Present: other (emotionally withdrawn) - Routine HEENT Exam Head: Present: normocephalic - Routine Respiratory Exam Present: crackles (minimal bilat bases) - Routine Cardiovascular Exam Present: RRR, murmur - Routine Abdominal Exam Comments: Exposed bowel, with noted fistulas and drainage of stool. Bowel bag and suction in place. - Routine Skin Exam Comments: Decub stage 3 noted on buttock. Results IRU - Labs Labs: Labs reviewed Sepsis Assessment - Evaluation Sepsis screening result: No Definite Risk SIRS Criteria: none IRU A/P (1) Diabetes Qualifiers: Diabetes mellitus type: type 2 Current visit: Yes Status: Chronic Managed by Medical (2) Open abdominal wall wound Current visit: Yes Status: Acute Managed by Medical Wound care team involved. (3) Decubitus ulcer Current visit: Yes Status: Acute Wound care following. Pt is unwilling to stay off it and frequently is lying on the Decub (4) Myopathy Current visit: Yes Status: Acute PT annd OT working with pt. I spoke with her for >30 min and we discussed motivation issues. She is still unwilling to visit with psych or try an antidepressant, which I think would be very worth while. She has every right to be depressed after 8+ months opf continuous medical complications. She has to do the 3 hours of PT and OT daily or insurance will have her D/C on Sunday. She is awareof this and agrees to push. (5) HTN (hypertension) Qualifiers: Hypertension type: essential hypertension Qualified Code(s): I10 - Essential (primary) hypertension Current visit: Yes Status: Chronic Managed by Medical (6) Hyponatremia Current visit: Yes Status: Acute DVT Prophylaxis: SCD's Resuscitation Status: Full Code - Course Hospital Course: Jovani Joyner MD: - Interventions to Obtain Goals PT Treatment Plan: Balance/Proprioception, Functional Activities, Gait Training , Patient/Family Education, Therapeutic Exercise OT Treatment Plan: ADL (Basic Care), Balance Training, Pt./Family Education, Ther. Exercise for ADL
[2017-04-16] MEDS: Oxycodone *IR* 5 MG TABLET PO PRN ×4 (08:23→23:40)
[2017-04-16] MEDS: ONDANSETRON ODT 4 MG TABLET PO PRN (09:49)
--- NOTE | 2017-04-16 11:28 | IRU Progress Note ---
- Subjective/Serverity of Illness Laura was able to participate with therapy a bit more today. She was able to take a shower which is a significant accomplishment. Continues to have significant muscle weakness as well as multiple medical problems. The abdominal drainage bags are now covering adequately and there is no additional drainage around the outside. She is on TPN. She is taking some fluids/liquids. Last temperature was 101 a couple of days ago. She has been afebrile since that time. However her white count is increased to 16,000 at present. Cultures and chest x-ray are pending. Continues to work with therapies. Her attitude appears to be a bit better today and she is more encouraged. Exam Vital Signs: Temperature 100.0 F 04/15/17 19:46 Pulse Rate 121 H 04/15/17 19:46 Respiratory Rate 20 04/15/17 19:46 Blood Pressure 104/60 04/15/17 19:46 Pulse Oximetry 97 04/15/17 19:46 Oxygen Delivery Method Room Air Height: 1.57 m Weight: 76.204 kg Body Mass Index: 30.7 - Constitutional Present: no acute distress - Routine HEENT Exam Head: Present: normocephalic - Routine Neck Exam Present: full ROM - Routine Cardiovascular Exam Present: RRR, S1, S2, no murmur - Routine Abdominal Exam Comments: (Abdominal wound noted with wound VAC attached. Management per medical team. - Routine Extremities Exam Present: no edema - Routine Back/Spine/Pelvis Exam Comments: General debilitation continues to be identified. She is cooperative with therapies. - Routine Neurological Exam Present: alert, oriented X3 - Routine Psychiatric Exam Present: cooperative, depressed Sepsis Assessment - Evaluation Sepsis screening result: No Definite Risk IRU A/P (1) Open abdominal wall wound Current visit: Yes Status: Acute Per medical team. She also remains on Levaquin. The current abdominal drainage bag appears to be appropriately covering the area. (2) Myopathy Current visit: Yes Status: Acute She is expressing significant myopathic changes related to her chronic illness. She was able to shower today which is a significant improvement. Continue working with therapies. She does have a foot drop and we will add an AFO to see if that will help. (3) Diabetes Qualifiers: Diabetes mellitus type: type 2 Diabetes mellitus complication status: without complication Diabetes mellitus correction insulin use: without correction use Qualified Code(s): E11.9 - Type 2 diabetes mellitus without complications Current visit: Yes Status: Chronic Her blood sugars were monitored frequently in view of the TPN. She is on a sliding scale insulin regimen at present. However this is not long-term use of insulin at present. Her sugars are stable. (4) HTN (hypertension) Qualifiers: Hypertension type: essential hypertension Qualified Code(s): I10 - Essential (primary) hypertension Current visit: Yes Status: Chronic Per medical team. DVT Prophylaxis: SCD's Resuscitation Status: Full Code - Course Hospital Course: Jovani Joyner MD: 04/16/17 11:31 Continues to receive TPN and Dewayne Was able to shower today for the first time. On pain patch and today does not request additional pain medication from me. - Add AFO today for her foot drop 04/16/17 11:32 - Interventions to Obtain Goals PT Treatment Plan: Balance/Proprioception, Functional Activities, Gait Training , Patient/Family Education, Therapeutic Exercise OT Treatment Plan: ADL (Basic Care), Balance Training, Pt./Family Education, Ther. Exercise for ADL
[2017-04-16] MEDS: LEVOFLOXACIN PB 500 MG/100 ML BAG IV SCH (11:55)
[2017-04-16] MEDS: CETIRIZINE 10 MG TABLET PO SCH (11:57)
[2017-04-16] MEDS: MICONAZOLE 2% POWDER 45gm TP SCH ×2 (11:57→23:41)
[2017-04-16] MEDS: ACETAMINOPHEN 500 MG TABLET PO PRN (11:58)
--- NOTE | 2017-04-16 12:49 | IRU Team Meeting ---
IRU Team Meeting - Nursing Vital Signs: Vital Signs - 24 hr 04/15/17 16:53 04/15/17 19:46 Temperature 98.8 F 100.0 F Pulse Rate 112 H 121 H Respiratory Rate 20 20 Blood Pressure 114/69 104/60 Pulse Oximetry 99 97 Current Medications: Acetaminophen (Tylenol) 1,000 mg PO Q6H PRN PRN Reason: Pain Last Admin: 04/16/17 11:58 Dose: 1,000 mg Acetaminophen (Tylenol Supp) 650 mg CO Q4HPRN PRN PRN Reason: Fever Albuterol/Ipratropium (Duoneb) 3 ml AEROSOL RTQID PRN PRN Reason: Shortness of air/wheezing Cetirizine HCl (Zyrtec) 5 mg PO DAILY [facility] Last Admin: 04/16/17 11:57 Dose: Not Given Dextrose (D50%W) 25 ml IV O PRN PRN Reason: Hypoglycemia Fentanyl (Duragesic Patch) 100 mcg TD Q3D@0900 [facility] [place] Last Admin: 04/14/17 10:40 Dose: 100 mcg Fentanyl Citrate (Duragesic Patch Removal) 1 removal TD Q3D@0900 [facility] [place] Last Admin: 04/14/17 10:45 Dose: 1 removal Furosemide (Lasix) 20 mg IVP DAILY PRN PRN Reason: NEEDED Glucagon (Glucagen) 1 mg IM PRN PRN PRN Reason: Hyperglycemia Heparin Sodium (Beef Lung) (Heparin Flush) 100 unit IV BID [facility] [place] Last Admin: 04/16/17 11:59 Dose: 100 unit Hydroxyzine HCl (Atarax) 25 mg PO QIDPRN PRN PRN Reason: Itching Fat Emulsion Intravenous (Intralipid 20%) 250 mls @ 50 mls/hr IV 1600 [facility] [place] Last Admin: 04/10/17 15:10 Dose: 50 mls/hr Levofloxacin/Dextrose (Levaquin Premix) 500 mg in 100 mls @ 100 mls/hr IV Q24H [facility] [place] Last Admin: 04/16/17 11:55 Dose: 100 mls/hr Sodium Chloride 100 meq/Sodium Acetate 60 meq/Potassium Chloride 40 meq/ Magnesium Sulfate 16 meq/Calcium Gluconate 9.3 meq/Multivitamins/Minerals 10 ml/ Chromium/Copper/Manganese/Zinc 1 ml/ Thiamine HCl 100 mg/Folic Acid 2 mg/ Potassium Phosphate 22 meq/ Amino Acids/Electrolytes 2,116.4 mls @ 75 mls/hr IV .Q24H SEAN PRN Reason: Protocol Last Admin: 04/15/17 18:08 Dose: 75 mls/hr Insulin Aspart (Novolog) 0 unit SQ SS PRN; Protocol PRN Reason: Hyperglycemia Last Admin: 04/15/17 22:47 Dose: 1 unit Miconazole Nitrate (Desenex) 1 applic TP BID SEAN Last Admin: 04/16/17 11:57 Dose: Not Given Nystatin (Mycostatin) 1 applic TP BID SEAN Last Admin: 04/16/17 11:57 Dose: Not Given Ondansetron HCl (Zofran Po) 4 mg PO Q6H PRN PRN Reason: Nausea Last Admin: 04/16/17 09:49 Dose: 4 mg Oxycodone HCl (Roxicodone *Ir*) 5 - 10 mg PO Q4H PRN Last Admin: 04/16/17 08:23 Dose: 10 mg Polyethylene Glycol (Miralax) 17 gm PO DAILY PRN PRN Reason: Constipation Promethazine HCl (Phenergan Tab) 12.5 mg PO Q6H PRN Last Admin: 04/15/17 09:53 Dose: 12.5 mg Saliva Substitute (Biotene Moisturizing Mouth [place]) 4 spray PO QID PRN PRN Reason: Dry mouth Sodium Chloride (Iv Flush) 10 ml IV PRN PRN PRN Reason: Flushing Last Admin: 04/16/17 11:58 Dose: 10 ml Sodium Chloride (Iv Flush) 10 - 80 ml IV PRN PRN PRN Reason: Flushing Last Admin: 04/16/17 04:30 Dose: 40 ml Zolpidem Tartrate (Ambien Cr) 12.5 mg PO HS PRN PRN Reason: Insomnia Last Admin: 04/14/17 23:28 Dose: 12.5 mg Comments: Patient here after nursing home acute hospitalization, LTAC, neuroendocrine tumor removed, multiple fistulae. Has UTI: On Levaquin. Followed by Dr. Puente ([place]) for the UTI. Has an indwelling catheter. On TPN. Open colon fistula on continuous suction. Wound care team seeing and changing drainage system BIW. Initial abd bags did not fit but now on the correct size. Stool output: 800-1000 cc from the suction. Pain control is a barrier. On Oxycodone IR and Fentanyl patch 100 ug q three days. WBC up today. On TPN and a clear liquid diet. Sugars are 130-160 range and on sliding scale insulin. Does deal with some nausea. She tends to sip quickly. Educated to go more slowly. Supposed to be limited to 150 ml/hour orally. Per nursing, she is refusing to be turned at times and also refuses some interventions. Has a small decubitus that is being treated. Warned that she needs avoid ongoing pressure to the pre-sacral area. - Physical Therapy Supine to Sit Bed Mobility Ability: Moderate Assistance Sit to Supine Bed Mobility Ability: Moderate Assistance Comments: Motivation seems to be a barrier. Ambulatory: 10 ft with assist of 2 for safety. Tried AFO's today. May well need custom orthotics. Foot drop bilat due to prolonged time in bed. - Occupational Therapy Eating Ability: Stand By Assist/Supervision Grooming Ability: Moderate Assistance Bathing Type: Tub Bathing Ability: Moderate Assistance Lower Body Dressing Comment: Motivation is an issue. - Care Plan Interventions/Goals: She is improving. Continue to work with patient. Plans are to go home ultimately.
--- NOTE | 2017-04-16 13:21 | Infectious Disease Consult ---
Infectious Disease Consult Date of Consultation: 04/16/17 Requesting Physician: Yaz Olivier Reason for Consultation: antibiotic recs History of Present Illness: Ms. Giron is a 41 y/o woman with a complex history and recent prolonged hospitalization at [facility]. She was initially hospitalized in July 2016. She was followed by Dr. Lewis there, but I saw her on at least 3 weekends when I was covering. 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 I believe at one time she had a skin graft done to an area in her abdomen, but I believe this failed. She has a h/o rash on multiple antibiotics, including Vancomycin, Merrem, PCNs and cephalosporins. She was in [facility] for quite some time. She was then moved to swing bed status at [place] from 01/22 through . She was readmitted to [facility] on 03/26 with sepsis secondary to CLABSI with E. faecalis. Her line was removed 03/26 and the tip cx was positive for E. faecalis as well. It was sensitive to Amp and Vanco, but due to her allergies, she was treated with Tygacil for 2 weeks through 04/09, when she was transferred here to [place]. She has also been noted to have acute pancreatitis, recurrent peritonitis due to enteric leaks. She still has an open abdomen. She states her surgeon (Dr. Peters) is hoping this will close up a little more before doing more surgery. She is currently on TPN. She has had a chronic indwelling christine. She had a UA checked on 04/10 which showed 10-20 WBCs, 2+ bacteria and yeast. The culture grew >100K of K. pneumoniae, which is reported to be an ESBL. At the time this was taken, she did not have fever. She had fever 2 days ago to 101.7. She has had some mild leukocytosis, which appears to be worsening. She denies any dysuria or bladder discomfort to me, but then states that she thinks she has had some bladder spasms. Her christine has been changed out twice since admission per her RN, once on 04/10 and again on 04/15. Her UA was rechecked on 04/15 and it looked better. Only 5-10 WBC, no bacteria. She was started on ceftriaxone initially, but changed to levaquin on 04/15. She has been refusing to participate with therapy. Medications Home Medications Medication Instructions Recorded Confirmed Type Acetaminophen [Acetaminophen Extra 1,000 mg PO Q6HPRN PRN 04/09/17 04/09/17 History Strength] Acetaminophen [Feverall] 650 mg RC Q4HPRN PRN 04/09/17 04/09/17 History Albuterol/Ipratropium [Duoneb] 1 unit AEROSOL QIDPRN PRN 04/09/17 04/09/17 History Cetirizine [Zyrtec] 5 mg PO DAILY 04/09/17 04/09/17 History D50w [Dextrose 50% in Water] 50 ml IV O PRN 04/09/17 04/09/17 History DiphenhydrAMINE [Benadryl] 25 mg IV Q8HPRN PRN 04/09/17 04/09/17 History FentaNYL PATCH [Duragesic Patch] 25 mcg TD Q3D 04/09/17 04/09/17 History FentaNYL PATCH [Duragesic Patch] 50 mcg TD Q3D 04/09/17 04/09/17 History Furosemide [Lasix] 20 mg IM DAILY PRN 04/09/17 04/09/17 History Glucagon [Glucagen] 1 mg IM PRN PRN 04/09/17 04/09/17 History Heparin Sodium,Porcine/Pf [Heparin 1 ml IVP BID 04/09/17 04/09/17 History Flush 10 Units/ml Syr] HydrOXYzine [Atarax] 25 mg PO QIDPRN PRN 04/09/17 04/09/17 History Hydromorphone HCl in 0.9% NaCl 0.25 mg IVP Q2HPRN PRN 04/09/17 04/09/17 History [Hydromorphone-Ns 1 mg/ml Syr] Insulin Lispro [Humalog] 2 - 12 unit SQ PRN PRN 04/09/17 04/09/17 History LORazepam INJ [Ativan Inj] 0.13 ml IM Q6HPRN PRN 04/09/17 04/09/17 History Meperidine HCl/Pf [Meperidine 25 2 ml IV Q4HPRN PRN 04/09/17 04/09/17 History mg/ml Vial] Miconazole 2% Powder [Desenex] 1 applic TP BID 04/09/17 04/09/17 History Nystatin Cream [Mycostatin] 1 applic TOP BID 04/09/17 04/09/17 History Ondansetron [Zofran Odt] 1 tab PO Q6HPRN PRN 04/09/17 04/09/17 History Oxycodone *Ir* [Roxicodone *Ir*] 5 - 10 mg PO Q4HPRN 04/09/17 04/09/17 History Polyethylene Glycol 3350 17 gm PO DAILY PRN 04/09/17 04/09/17 History Saliva Substitute Mouth Belt 1 applic PO QIDPRN PRN 04/09/17 04/09/17 History [Biotene Moisturizing Mouth Belt] Allergies Allergy/AdvReac Type Severity Reaction Status Date / Time kiwi Allergy Severe Rash Verified 04/10/17 01:26 orange Allergy Severe Rash Verified 04/10/17 01:26 vancomycin Allergy Severe Rash Verified 04/10/17 01:26 Penicillins Allergy Unknown Verified 04/10/17 01:26 [facility] Patient Stated Medical History Other GI pancreatitis/open colon fistula Hx Renal Disease Yes: Hx: renal failure (post op complication) Sepsis Yes Metastatic Neuroendocrine tumor Hypertension. Diabetes. Anemia. Pancreatitis Surgical History: 07/10/16-resection of intra-abdominal neuroendocrine tumor. Subsequently appendectomy, small bowel resection, removal of large mesenteric mass. Multiple other exploratory laparotomies with further resections and ileostomy Family History: non-contributory - Social History Smoking status: Never smoker Alcohol intake frequency: does not drink Review of Systems - Constitutional Constitutional: Present: fatigue, fever(s). Absent: chills - EENMT Eyes: Absent: change in vision - Cardiovascular Cardiovascular: Absent: chest pain - Respiratory Respiratory: Absent: dyspnea - Gastrointestinal Gastrointestinal: Present: abdominal pain (chronic). Absent: vomiting - Genitourinary Genitourinary: Present: other (bladder spasms). Absent: dysuria - Musculoskeletal Musculoskeletal: Absent: arthralgias - Integumentary/Breasts Integumentary: Absent: rash Integumentary Comments: sacral wound per nursing staff - Neurological Neurological: Absent: headache(s) - Psychiatric Psychiatric: Present: depression - Hematologic/Lymphatic Hematologic/Lymphatic: Absent: easy bleeding Exam Vital Signs: Temperature 100.0 F 04/15/17 19:46 Pulse Rate 121 H 04/15/17 19:46 Respiratory Rate 20 04/15/17 19:46 Blood Pressure 104/60 04/15/17 19:46 Pulse Oximetry 97 04/15/17 19:46 Oxygen Delivery Method Room Air Height: 1.57 m Weight: 76.204 kg Body Mass Index: 30.7 - Constitutional Comments: chronically ill-appearing - Routine HEENT Exam Head: Present: normocephalic, atraumatic Eye: Present: EOMI, PERRL ENT: Present: mucous membranes moist - Routine Neck Exam Present: supple - Routine Respiratory Exam Present: CTA bilaterally. Absent: accessory muscle use, dyspnea - Routine Cardiovascular Exam Present: RRR. Absent: murmur - Routine Abdominal Exam Present: soft. Absent: normoactive bowel sounds Comments: no bowel sound heard, large open wound over abdomen covered with a clear dressing with intestines visible as well as greenish succus that is going to wall suction container - Routine Exam Comments: Christine in place - Routine Extremities Exam Absent: edema Comments: R ankle in boot - Routine Skin Exam Absent: erythema, rash Comments: LUE PICC line - Routine Neurological Exam Present: alert, oriented X3, CN II-XII intact. Absent: motor deficit - Routine Psychiatric Exam Present: normal thought process Comments: very flat affect Results - Labs CBC & Chem 7: 04/16/17 04:26 04/16/17 04:26 Microbiology Results: Microbiology 04/14/17 21:37 Peripheral/Iv Start Blood Culture - Preliminary No Growth After 1 Day 04/14/17 21:30 Peripheral/Iv Start Blood Culture - Preliminary No Growth After 1 Day 04/10/17 21:22 Urine, Cath Christine Urine Culture - Final Klebsiella pneumoniae, ESBL positive per report, sensitive to cipro Impression: IMPRESSIONS: * Fever * Leukocytosis * Urine culture with >100K of Kleb. pneumoniae, ESBL positive, suspect colonization. * H/o rash on Merrem, Vancomycin, PCN, cephalosporins * Recent CLABSI with E. faecalis, s/p CVL removal 03/26, treated with Tygacil ( due to allergies) through 04/09. 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 * Recommend continuing the levaquin for 3 days and then stop. I suspect the urine culture mostly represents colonization. * If she has continued fever and leukocytosis, I would repeat blood cultures and evaluate for abdominal source. Sepsis Assessment - Evaluation Sepsis screening result: No Definite Risk
--- NOTE | 2017-04-16 14:25 | Progress Note ---
<Santa Cheng V - Last Filed: 04/16/17 14:16> Subjective: Laura is seen today in follow while up in the wheel chair working with therapy. She complains of having continued significant pain in her abdomen when upright in the chair. She was noted in chart to be tachycardic overnight up to 120s which has improved today. At that time she did have a temp of 100.0. Objective Vital signs: Temperature 100.0 F 04/15/17 19:46 Pulse Rate 121 H 04/15/17 19:46 Respiratory Rate 20 04/15/17 19:46 Blood Pressure 104/60 04/15/17 19:46 Pulse Oximetry 97 04/15/17 19:46 Oxygen Delivery Method Room Air Body Mass Index: 30.7 - Constitutional Present: no acute distress, well nourished, well developed - Routine HEENT Exam Head: Present: normocephalic, atraumatic Eye: Present: EOMI, PERRL ENT: Present: mucous membranes moist, dentition normal - Routine Respiratory Exam Present: CTA bilaterally. Absent: wheezes - Routine Cardiovascular Exam Present: RRR, S1, S2. Absent: murmur - Routine Abdominal Exam Present: soft, normoactive bowel sounds. Absent: tenderness Comments: Open abdomen wound with dressing attached to LES. - Routine Extremities Exam Present: full ROM, normal capillary refill - Routine Back/Spine/Pelvis Exam Back/Spine: Present: full ROM - Routine Skin Exam Present: intact, dry, warm - Routine Neurological Exam Present: alert, oriented X3, CN II-XII intact - Routine Lymphatic Exam Lymphatic: Absent: adenopathy - Routine Psychiatric Exam Present: normal affect Results - Labs CBC & Chem 7: 04/16/17 04:26 04/16/17 04:26 Microbiology Results: Microbiology 04/14/17 21:37 Peripheral/Iv Start Blood Culture - Preliminary No Growth After 1 Day 04/14/17 21:30 Peripheral/Iv Start Blood Culture - Preliminary No Growth After 1 Day 04/10/17 21:22 Urine, Cath Mills Urine Culture - Final Klebsiella pneumoniae Assessment and Plan (1) HTN (hypertension) Current visit: Yes Status: Chronic (2) Diabetes Current visit: Yes Status: Chronic (3) Open abdominal wall wound Current visit: Yes Status: Acute (4) Decubitus ulcer Current visit: Yes Status: Acute (5) Myopathy Current visit: Yes Status: Acute (6) Hyponatremia Current visit: Yes Status: Acute Assessment and Plan: 04/16 Patient is seen by Dr. Puente today for further infectious disease recommendations. Urine microbiology was reviewed by Dr. Puente. She suspects culture is likely colonization. She recommended continuing 3 additional days of Levaquin and then stopping on 04/19 following this dose. At this point. Blood cultures from 04/14 are negative. We will continue to monitor. Continued wound management for abdominal wound Overall blood sugars appear to be well controlled. LFTs do continue to trend down as Intralipid remains on hold given recent pancreatitis Continue TPN for nutrition, and monitor electrolytes carefully. Encourage continued work with PT and OT for ongoing strengthening Will discuss further orders and plan of care with attending, Dr. Olivier Sepsis Assessment - Evaluation Sepsis screening result: No Definite Risk Hospital Course Summary Disclaimer: The visit summary below is not to be considered part of the above Progress Note. Hospital Course: Other ongoing medical problems. Recent pancreatitis Recent acute kidney injury Recurrent peritonitis Colocutaneous fistula Recent septic shock with Enterococcus Faecalis 04/10- Admission Plan Patient has a very complex past medical history Hospital services will continue to follow patient during her stay in the rehabilitation unit. Consult placed to wound care team for ongoing abdominal wound management and dressing changes. It was also reported that patient had a Consultation is placed to the pharmacy for TPN for ongoing nutrition. Patient is to be on a clear liquid diet, however, may not have more than 150 ML' s every hour while awake Monitor Accu-Cheks routinely. Continue with sliding scale Humalog 2-12 units. SCD to the lateral lower extremity for DVT prophylaxis Patient to PT and OT for ongoing strengthening Recheck CBC and BMP tomorrow morning to follow blood counts, renal function and electrolytes 04/11 Reviewed admission urinalysis from yesterday revealing trace protein, plus blood , positive nitrates, 2+ leukocyte esterase, 5-10 RBCs with 10-20 WBCs with presence of yeast and bacteria. It is unclear if this is colonized and chronic. Given long-term indwelling Mills catheter. Given her complaints of urethral discomfort accompanied with positive urinalysis at this time we will go ahead and treat starting 1 gram of IV Rocephin. We did discuss that utilizing antibiotics need to be conservative given she is at risk for jackelin C. difficile. We will also change of Mills catheter today. Continue with topical fentanyl patch. Suspect that patient may not get adequate pain control from oral pain pills, she likely does not absorb this in her GI tract. Did discuss pain control further with rehabilitation attending, Dr. Joyner We'll recheck CBC and BMP tomorrow morning to follow blood counts, renal function and electrolyte Encourage patient to participate in physical therapy and occupational therapy as it is her goal that she will improve and be able to be discharged home. Case discussed with multiple disciplinary team members including PT, Nursing staff, infectious disease, IRU directer, Dr Joyner and Dr Grajeda 04/12/17 Abdominal wound: Continue care per wound team. Bacturia: Preliminary urine culture is showing gram-negative rods, yeast. Will await final culture report before initiating any antibiotic therapy. Suspect colonization. She had one isolated temperature of 100F. White count is trending down. Bilateral rales: Suspect atelectasis, but she has not had a chest x-ray since arrival. Will obtain portable chest x-ray. Encourage incentive spirometry. Respiratory therapy recommends an overnight oximetry, which will be done tonight. Macrocytic anemia: Hemoglobin 7.8. Assess vitamin B12 and folate. Repeat CBC tomorrow morning Continue TPN. Reassess BMP, magnesium and phosphorus levels tomorrow morning. Glucose has been reasonably controlled. Elevated LFTs: Possibility related to TPN. Will repeat tomorrow morning. 04/14/17 11:37 Abdominal wound/decubitus ulcers: Continue care per wound team. Bacturia: Preliminary urine culture is showing gram-negative rods, yeast. Culture showed Klebsiella pneumonia. Suspect colonization. WBC stable at 9.7 and she remains afebrile. Continue to monitor closely. Will hold off on antibiotics for now. Bilateral rales: Suspect atelectasis. CXR on 04/12 showed atelectasis. Encourage incentive spirometry. Technique and importance reviewed with patient on exam. Respiratory therapy recommends an overnight oximetry - results pending. Macrocytic anemia: Hemoglobin stable at 7.9. Assess vitamin B12 and folate - results pending. Continue to monitor trends. Continue TPN. Persistent hyponatremia with sodium at 133. Continue fluid restriction. Elevated phosphorus - results communicated with pharmacy which will adjust TPN accordingly. Glucose has been reasonably controlled. Elevated LFTs: Possibility related to TPN and trending up - monitor closely. Will recheck labs - CBC, CMP and phosphorus on 04/16. 04/15/17 Abdominal wound/decubitus ulcers: Continue care per wound team. Bacturia: Culture showed Klebsiella pneumoniae present on admission. Given increase in white count, accompanied with fever and tachycardia overnight. Blood Cultures were obtained as well as chest x-ray. Reviewed culture and sensitivity of urinalysis. Will start IV Levaquin 500 milligrams for antimicrobial coverage. Macrocytic anemia: Hemoglobin stable at 8.0. Assess vitamin B12 and folate - results pending. Continue to monitor trends. Continue TPN. Persistent hyponatremia with sodium at 133. Continue oral fluid restriction. Monitor regular, electrolytes Elevated LFTs: Likely related to recent pancreatitis. LFTs continue to trend down. IV Intralipid 20%, (fat emulsion) remains on hold. 04/16 Patient is seen by Dr. Puente today for further infectious disease recommendations. Urine microbiology was reviewed by Dr. Puente. She suspects culture is likely colonization. She recommended continuing 3 additional days of Levaquin and then stopping on 04/19 following this dose. At this point. Blood cultures from 04/14 are negative. We will continue to monitor. Continued wound management for abdominal wound Overall blood sugars appear to be well controlled. LFTs do continue to trend down as Intralipid remains on hold given recent pancreatitis Continue TPN for nutrition, and monitor electrolytes carefully. Encourage continued work with PT and OT for ongoing strengthening Will discuss further orders and plan of care with attending, Dr. Olivier <Yaz Olivier - Last Filed: 04/16/17 16:26> Objective Vital signs: Temperature 97.8 F 04/16/17 14:37 Pulse Rate 101 H 04/16/17 14:37 Respiratory Rate 18 04/16/17 14:37 Blood Pressure 95/65 04/16/17 14:37 Pulse Oximetry 99 04/16/17 14:37 Oxygen Delivery Method Room Air Results - Labs CBC & Chem 7: 04/16/17 04:26 04/16/17 04:26 Microbiology Results: Microbiology 04/14/17 21:37 Peripheral/Iv Start Blood Culture - Preliminary No Growth After 1 Day 04/14/17 21:30 Peripheral/Iv Start Blood Culture - Preliminary No Growth After 1 Day 04/10/17 21:22 Urine, Cath Mills Urine Culture - Final Klebsiella pneumoniae Assessment and Plan (1) HTN (hypertension) Current visit: Yes Status: Chronic (2) Diabetes Current visit: Yes Status: Chronic (3) Open abdominal wall wound Current visit: Yes Status: Acute (4) Decubitus ulcer Current visit: Yes Status: Acute (5) Myopathy Current visit: Yes Status: Acute (6) Hyponatremia Current visit: Yes Status: Acute Assessment and Plan: 04/16/2017-I reviewed this chart, the patient history, and the AWNING SPREADER's/PA's documented findings as above. We discussed and formulated the assessment and plan as above with the additions below. I've seen and examined the patient independently. I came to see the patient just as the wound care nurse and the patient's rehabilitation nurse were finishing with wound care. The patient's wound care nurse stated that her abdominal wound is looking very good. She has a very small area of skin breakdown on her decubitus as well and that is covered with a dressing. The patient had vomiting of apple juice earlier today. She denies any nausea now. She denies any shortness of breath or cough. She denies any pain except over the decubitus area with movement. She does feel cold after her dressing change. She was able to walk 10 steps with the parallel bars today. On exam she is alert and in no acute distress. HEENT reveals sclerae to be anicteric and oropharynx is moist. Chest is clear to auscultation. Cardiovascular reveals a borderline tachycardic rate with irregular rhythm. Abdomen reveals positive bowel sounds. Wound is covered with a clear dressing and shows pink healthy appearing bowel. Extremities are free of edema. Patient did have tachycardia last night that has resolved now. She also has borderline hypotension. Urine output yesterday is 600 ML's. So far today she said 200 ML's of urine which appears dark. We'll give her 1 L fluid bolus over 4 hours. Continue TPN. Repeat CBC and metabolic profile tomorrow. Monitor closely for signs or symptoms of infection, electrolyte abnormalities. Monitor fluid status closely. Discussed today with Dr. Puente. Hospital Course Summary Disclaimer: The visit summary below is not to be considered part of the above Progress Note.
[2017-04-16] MEDS ORDERED: ZINC OXIDE 20% OINTMENT 30gm TOP PRN (15:06)
[2017-04-16] MEDS ORDERED: NS 1,000 ML IV ONE (16:18)
[2017-04-16] MEDS ORDERED: POTASSIUM CHLORIDE IV SCH (18:00)
[2017-04-16] MEDS ORDERED: [UNRECOGNIZED DRUG - OTHER] IV SCH (18:00)
[2017-04-16] MEDS ORDERED: SODIUM CHLORIDE IV SCH (18:00)
[2017-04-16] MEDS ORDERED: SODIUM ACETATE IV SCH (18:00)
--- NOTE | 2017-04-16 19:13 | Pharmacy Consult-TPN/PPN ---
Pharmacy Consult-TPN/PPN - Laboratory Information Chemistry Turbidity < 20 (0-20) 04/16/17 04:26 Sodium 131 MEQ/L (134-144) L 04/16/17 04:26 Potassium 5.0 MEQ/L (3.6-5) D 04/16/17 04:26 Chloride 96 MEQ/L (98-107) L 04/16/17 04:26 Carbon Dioxide 28 MEQ/L (22-30) 04/16/17 04:26 Anion Gap 7 MEQ/L (5-15) 04/16/17 04:26 BUN 43.0 MG/DL (7-17) H 04/16/17 04:26 Creatinine 1.0 MG/DL (0.7-1.2) 04/16/17 04:26 GFR Calculation 61 04/16/17 04:26 BUN/Creatinine Ratio 43 RATIO (6-26) H 04/16/17 04:26 Glucose 89 MG/DL (65-110) 04/16/17 04:26 Glucometer 182 mg/dL (65-110) 04/16/17 13:29 Calculated Osmolality 263 MOSM/KG (261-280) 04/16/17 04:26 Calcium 9.0 MG/DL (8.4-10.2) 04/16/17 04:26 Phosphorus 3.4 MG/DL (2.5-4.5) 04/16/17 04:26 Magnesium 2.0 MG/DL (1.6-2.3) 04/13/17 05:07 Total Bilirubin 1.80 MG/DL (0.20-1.30) H 04/16/17 04:26 Icterus Index < 2 (0-7) 04/16/17 04:26 AST 45 U/L (14-36) H 04/16/17 04:26 ALT 69 U/L (9-52) H 04/16/17 04:26 Alkaline Phosphatase 358 U/L (38-126) H 04/16/17 04:26 Total Protein 6.3 G/DL (6.3-8.2) 04/16/17 04:26 Albumin 2.7 G/DL (3.5-5.0) L 04/16/17 04:26 Globulin 3.6 G/DL (2.4-3.6) 04/16/17 04:26 Albumin/Globulin Ratio 0.8 RATIO (1.1-2.2) L 04/16/17 04:26 Vitamin B12 799 PG/ML (239-931) 04/13/17 05:07 Folate > 20.0 NG/ML (2.76-20) H 04/13/17 05:07 Specimen Hemolysis < 15 (0-25) 04/16/17 04:26 Intake and Output 04/15/17 04/16/17 04/17/17 06:59 06:59 06:59 Intake Total 100 / 100 300 / 300 Output Total 2500 / 2500 3400 / 3400 Balance -2500 / -2500 -3300 / -3300 300 / 300 Intake: IV 100 / 100 LEVAQUIN PREMIX 500 mg In 100 / 100 100 ml @ 100 mls/hr IV Q24H [facility] Rx#:[id number] Oral 300 / 300 Output: Stool 1900 / 1900 2800 / 2800 Emesis 200 / 200 Urine Amount (Catheter) 400 / 400 600 / 600 Other: # Unmeasured Emesis 1 Episodes - Consult Information TPN formula adjusted. NaCl increased 120 meq/bag and KCl decreased to 20 meq per bag. Thank you, Chandni Dueñas [facility] current TPN formula as follows: Amino acid 8.5 % 1000 ml Dextrose 50% 1000 ml NaCl 120 meq NaAc 60 meq KCl 20 meq KPO4 22 meq MgSO4 16 meq Ca gluc 9.3 meq MVI 10 ml trace elements 1 ml Thiamine 100 mg Folic Acid 2 mg rate 75 ml/hr
[2017-04-16] MEDS ORDERED: FALL RISK - PHARMACY CONSULT MC PRN (20:38)
[2017-04-17] MEDS: Oxycodone *IR* 5 MG TABLET PO PRN ×4 (03:55→18:47)
[2017-04-17] MEDS: SALINE FLUSH 10ml SYRINGE IV PRN ×2 (03:57→10:07)
[2017-04-17] MEDS: CETIRIZINE 10 MG TABLET PO SCH (08:28)
[2017-04-17] MEDS: ONDANSETRON ODT 4 MG TABLET PO PRN (08:28)
[2017-04-17] MEDS: LEVOFLOXACIN PB 500 MG/100 ML BAG IV SCH (08:30)
--- NOTE | 2017-04-17 09:46 | IRU Progress Note ---
- Subjective/Serverity of Illness Laura was evaluated in her room. She is working with occupational therapy at present. She has made some progress. She is supine to sit with standby assist only which is an improvement. She continues to be limited quite a bit by her pain. We discussed issues of possible depression. She admits that she does get "blue" at times. I suggested that she consider visiting with a therapist or psychiatrist some point. She states that she does not wish to do this. She states she declined this previously as well. I did ask her to simply think about it and see if at some point she would be willing to do this. I told her I thought it would be helpful. She has several medical issues going on. She is currently being treated for Klebsiella pneumoniae ESBL in her urine. She does have a catheter in place. Dr. Puente felt as though however it was high likelihood of being a colonization. She recommended 3 more days of Levaquin which would be through April 19. In addition, her white count is increasing to 17,000. Hemoglobin is down from 8.0-7.5 g percent. BUN is a bit up and creatinine, while still normal is up as well. Last official "temperature" was 101 on Sunday the . Had a low-grade 100 subsequent but besides that she has been afebrile. Blood cultures have been obtained and were negative. She is working with therapies. However progress is slow due to significant pain. In addition she frequently complains that she does not wish to work at this time. Exam Vital Signs: Temperature 98.4 F 04/17/17 07:54 Pulse Rate 103 H 04/17/17 07:54 Respiratory Rate 20 04/17/17 07:54 Blood Pressure 94/61 04/17/17 07:54 Pulse Oximetry 99 04/17/17 07:54 Oxygen Delivery Method Room Air Height: 1.57 m Weight: 76.5 kg Body Mass Index: 30.7 - Constitutional Present: mild distress - Routine Neck Exam Present: supple - Routine Respiratory Exam Present: CTA bilaterally. Absent: dyspnea - Routine Cardiovascular Exam Present: RRR, no murmur - Routine Abdominal Exam Comments: No further leakage at this time. The horizontal crease in the right groin was inspected. It is clean. There is Desitin or similar on that at the present time. Does not appear to be inflamed. - Routine Extremities Exam Present: no edema - Routine Skin Exam Comments: Please see above discussion regarding her skin. No petechiae are noted. No rashes present. - Routine Neurological Exam Present: alert, oriented X3 - Routine Psychiatric Exam Present: depressed, anxious Results IRU - Labs Labs: I have reviewed her CBC and chemistries. Also reviewed all vital signs etc. Blood cultures are negative. I reviewed Dr. Puente note as well and we appreciate her input as well as the hospitalists. Sepsis Assessment - Evaluation Sepsis screening result: Sepsis Risk IRU A/P (1) Open abdominal wall wound Current visit: Yes Status: Acute Drainage appears to be contained at the present time. The previously noted "slipped" or crease in the right groin is stable and does not appear to be irritated at present. No definite erythema and no infection in that area as noted. (2) Myopathy Current visit: Yes Status: Acute She is making progress with regard to transfers. Continues to be quite weak and has demonstrated significant myopathy. (3) Diabetes Qualifiers: Diabetes mellitus type: type 2 Diabetes mellitus complication status: without complication Diabetes mellitus long-term insulin use: without long-term use Qualified Code(s): E11.9 - Type 2 diabetes mellitus without complications Current visit: Yes Status: Chronic Blood sugars are reasonably well controlled with sliding scale insulin. She is on TPN. (4) HTN (hypertension) Qualifiers: Hypertension type: essential hypertension Qualified Code(s): I10 - Essential (primary) hypertension Current visit: Yes Status: Chronic Blood pressure reviewed and typically is running slightly low. Hospitalist service is following. DVT Prophylaxis: SCD's Resuscitation Status: Full Code - Course Hospital Course: Jovani Joyner MD: 04/16/17 11:31 Continues to receive TPN and Dewayne Was able to shower today for the first time. On pain patch and today does not request additional pain medication from me. - Add AFO today for her foot drop 04/16/17 11:32 - Interventions to Obtain Goals PT Treatment Plan: Balance/Proprioception, Functional Activities, Gait Training , Patient/Family Education, Therapeutic Exercise OT Treatment Plan: ADL (Basic Care), Balance Training, Pt./Family Education, Ther. Exercise for ADL
[2017-04-17] MEDS ORDERED: NS 1,000 ML IV SCH (10:15)
--- NOTE | 2017-04-17 10:30 | Progress Note ---
<ElizaMarisa Pham - Last Filed: 04/17/17 10:14> Subjective: Laura is seen this morning in her room in follow up for her abdominal pain. She complains of 9/10 abdominal pain which she describes as aching. She denies any radiation of the pain and reports that her current pain is similar to abdominal pain she has had previously. She also complains of worsening nausea without vomiting today. No known fevers, chills, chest pain, shortness of breath, dizziness or syncope. She was seen and evaluated by Dr. Puente who recommended continuing Levaquin for ESBL positive urine culture, which is believed to be most likely from colonization, until 04/19. Review of nursing notes indicates a documented total of 350cc urine in past 24 hours. Weight appears to be stable. Blood cultures are remain negative after 2 days. She remains on TPN at 75cc/hr though infusion amounts are not currently documented in chart. Increased output from her ostomy noted. Blood pressure remains borderline hypotensive at 94/61. She remains afebrile. On exam, she is seen while sitting in her wheelchair, drinking juice. Immediately after taking a sip of juice, she asks for a bag and states her nausea is bad. She is alert and orientated x 3 and appears not to feel well. Cardiac exam reveals mild tachycardia and lungs are clear to auscultation. Abdomen is soft with active bowel sounds. No edema noted to lower extremities. Bandage to abdominal wound was not evaluated at this time due to severe nausea and pain. Objective Vital signs: Temperature 98.4 F 04/17/17 07:54 Pulse Rate 103 H 04/17/17 07:54 Respiratory Rate 20 04/17/17 07:54 Blood Pressure 94/61 04/17/17 07:54 Pulse Oximetry 99 04/17/17 07:54 Oxygen Delivery Method Room Air Body Mass Index: 30.7 - Constitutional Present: mild distress, well nourished, well developed, cooperative Comments: appears not to feel well, holding stomach. - Routine HEENT Exam Head: Present: normocephalic, atraumatic Eye: Present: PERRL. Absent: conjunctival icterus, scleral injection ENT: Present: mucous membranes moist - Routine Respiratory Exam Present: CTA bilaterally. Absent: rhonchi, stridor, wheezes - Routine Cardiovascular Exam Present: RRR, S1, S2, tachycardia - Routine Abdominal Exam Present: soft, normoactive bowel sounds, tenderness - Routine Extremities Exam Present: no edema, pulses intact - Routine Back/Spine/Pelvis Exam Comments: nursing and wound care notes indicate skin break down to coccyx. Wound care managing. - Routine Musculoskeletal Exam Musculoskeletal: Present: moving extremities well - Routine Skin Exam Present: intact, dry, warm. Absent: jaundice - Routine Neurological Exam Present: alert, oriented X3, moving all extremities - Routine Lymphatic Exam Lymphatic: Absent: lymphedema - Routine Psychiatric Exam Present: cooperative Comments: appears uncomfortable. Results - Labs CBC & Chem 7: 04/17/17 04:06 04/17/17 04:06 Microbiology Results: Microbiology 04/10/17 21:22 Urine, Cath Mills Urine Culture - Final Klebsiella pneumoniae, ESBL 04/14/17 21:37 Peripheral/Iv Start Blood Culture - Preliminary No Growth After 2 Days 04/14/17 21:30 Peripheral/Iv Start Blood Culture - Preliminary No Growth After 2 Days Assessment and Plan (1) HTN (hypertension) Current visit: Yes Status: Chronic (2) Diabetes Current visit: Yes Status: Chronic (3) Open abdominal wall wound Current visit: Yes Status: Acute (4) Decubitus ulcer Current visit: Yes Status: Acute (5) Myopathy Current visit: Yes Status: Acute (6) Hyponatremia Current visit: Yes Status: Acute Assessment and Plan: Laura is having increased abdominal pain and nausea this morning. No vomiting. She was seen by Dr. Puente yesterday who recommended 3 additional days of Levaquin to be completed on 04/19. Blood pressure remains borderline hypotensive at 94/61 with mild tachycardia. She also complains of tenderness to her coccyx region. She is encouraged to continue to rotate her position frequently in light of her coccyx wound. On exam she is alert and appears to not feel well, holding her stomach. HEENT reveals sclerae to be anicteric and oropharynx is moist. Cardiac exam reveals tachycardia and lungs are clear to auscultation. Abdomen reveals positive bowel sounds. Wounds were note evaluated on exam in light of patient's pain and nausea. Extremities are free of edema. She received pain medication on exam. Labs today show up trending of leukocytosis with WBC at 17.6 (16.4 on 04/16)), anemia with hemoglobin at 7.5 (8.0 on 04/16) and thrombocytosis with platelets at 571 (546 on 04/16). BMP reveals worsening hyponatremia with sodium at 131 ( decreased from 133 on 04/16), elevated BUN and SCr at 51 and 1.2 respectively ( up from 43 and 1.0). LFTs continue to trend down. Urine output yesterday was only documented at 350 ML's for 24 hours. Output from her osteomy was 1850cc yesterday. Review of total IV infusion was noted to be low and did not include TPN. Discussed with nursing and working with IT to correct I&O measurements. In light of hyponatremia, borderline hypotension and elevated renal function with decreased urine output, will give 1L NS at 250cc/hr x 1 L followed by NS 100cc/hr for hydration. Recheck labs in AM to monitor blood counts, electrolytes and renal function. In light of worsening leukocytosis and increased abdominal pain with nausea, will check lactate and lipase now. LFTs continue to trend down. Will continue to monitor. Continue TPN. Will review I&O with nursing to ensure proper documentation of infusions to ensure accurate measurements. Monitor closely for signs or symptoms of infection, electrolyte abnormalities. She remains afebrile. Per Dr. Puente, continue Levaquin until 04/19 for coverage of ESBL. Blood cultures remain negative after 2 days. Monitor fluid status closely with daily weights and accurate I&O measurements. Nursing notified to contact hospitalist service if urinary output is <200cc over 6 hours. Continue to provide safe and supportive environment. Concern for depression. Consider psychiatric consult. - Time spent with patient greater than 35 minutes Sepsis Assessment - Evaluation Sepsis screening result: Sepsis Risk Hospital Course Summary Disclaimer: The visit summary below is not to be considered part of the above Progress Note. Hospital Course: Other ongoing medical problems. Recent pancreatitis Recent acute kidney injury Recurrent peritonitis Colocutaneous fistula Recent septic shock with Enterococcus Faecalis 04/10- Admission Plan Patient has a very complex past medical history Hospital services will continue to follow patient during her stay in the rehabilitation unit. Consult placed to wound care team for ongoing abdominal wound management and dressing changes. It was also reported that patient had a Consultation is placed to the pharmacy for TPN for ongoing nutrition. Patient is to be on a clear liquid diet, however, may not have more than 150 ML' s every hour while awake Monitor Accu-Cheks routinely. Continue with sliding scale Humalog 2-12 units. SCD to the lateral lower extremity for DVT prophylaxis Patient to PT and OT for ongoing strengthening Recheck CBC and BMP tomorrow morning to follow blood counts, renal function and electrolytes 04/11 Reviewed admission urinalysis from yesterday revealing trace protein, plus blood , positive nitrates, 2+ leukocyte esterase, 5-10 RBCs with 10-20 WBCs with presence of yeast and bacteria. It is unclear if this is colonized and chronic. Given long-term indwelling Mills catheter. Given her complaints of urethral discomfort accompanied with positive urinalysis at this time we will go ahead and treat starting 1 gram of IV Rocephin. We did discuss that utilizing antibiotics need to be conservative given she is at risk for jackelin C. difficile. We will also change of Mills catheter today. Continue with topical fentanyl patch. Suspect that patient may not get adequate pain control from oral pain pills, she likely does not absorb this in her GI tract. Did discuss pain control further with rehabilitation attending, Dr. Joyner We'll recheck CBC and BMP tomorrow morning to follow blood counts, renal function and electrolyte Encourage patient to participate in physical therapy and occupational therapy as it is her goal that she will improve and be able to be discharged home. Case discussed with multiple disciplinary team members including PT, Nursing staff, infectious disease, IRU directer, Dr Joyner and Dr Grajeda 04/12/17 Abdominal wound: Continue care per wound team. Bacturia: Preliminary urine culture is showing gram-negative rods, yeast. Will await final culture report before initiating any antibiotic therapy. Suspect colonization. She had one isolated temperature of 100F. White count is trending down. Bilateral rales: Suspect atelectasis, but she has not had a chest x-ray since arrival. Will obtain portable chest x-ray. Encourage incentive spirometry. Respiratory therapy recommends an overnight oximetry, which will be done tonight. Macrocytic anemia: Hemoglobin 7.8. Assess vitamin B12 and folate. Repeat CBC tomorrow morning Continue TPN. Reassess BMP, magnesium and phosphorus levels tomorrow morning. Glucose has been reasonably controlled. Elevated LFTs: Possibility related to TPN. Will repeat tomorrow morning. 04/14/17 11:37 Abdominal wound/decubitus ulcers: Continue care per wound team. Bacturia: Preliminary urine culture is showing gram-negative rods, yeast. Culture showed Klebsiella pneumonia. Suspect colonization. WBC stable at 9.7 and she remains afebrile. Continue to monitor closely. Will hold off on antibiotics for now. Bilateral rales: Suspect atelectasis. CXR on 04/12 showed atelectasis. Encourage incentive spirometry. Technique and importance reviewed with patient on exam. Respiratory therapy recommends an overnight oximetry - results pending. Macrocytic anemia: Hemoglobin stable at 7.9. Assess vitamin B12 and folate - results pending. Continue to monitor trends. Continue TPN. Persistent hyponatremia with sodium at 133. Continue fluid restriction. Elevated phosphorus - results communicated with pharmacy which will adjust TPN accordingly. Glucose has been reasonably controlled. Elevated LFTs: Possibility related to TPN and trending up - monitor closely. Will recheck labs - CBC, CMP and phosphorus on 04/16. 04/15/17 Abdominal wound/decubitus ulcers: Continue care per wound team. Bacturia: Culture showed Klebsiella pneumoniae present on admission. Given increase in white count, accompanied with fever and tachycardia overnight. Blood Cultures were obtained as well as chest x-ray. Reviewed culture and sensitivity of urinalysis. Will start IV Levaquin 500 milligrams for antimicrobial coverage. Macrocytic anemia: Hemoglobin stable at 8.0. Assess vitamin B12 and folate - results pending. Continue to monitor trends. Continue TPN. Persistent hyponatremia with sodium at 133. Continue oral fluid restriction. Monitor regular, electrolytes Elevated LFTs: Likely related to recent pancreatitis. LFTs continue to trend down. IV Intralipid 20%, (fat emulsion) remains on hold. 04/16 Patient is seen by Dr. Puente today for further infectious disease recommendations. Urine microbiology was reviewed by Dr. Puente. She suspects culture is likely colonization. She recommended continuing 3 additional days of Levaquin and then stopping on 04/19 following this dose. At this point. Blood cultures from 04/14 are negative. We will continue to monitor. Continued wound management for abdominal wound Overall blood sugars appear to be well controlled. LFTs do continue to trend down as Intralipid remains on hold given recent pancreatitis Continue TPN for nutrition, and monitor electrolytes carefully. Encourage continued work with PT and OT for ongoing strengthening Will discuss further orders and plan of care with attending, Dr. Olivier 04/17/17 11:09 Laura is having increased abdominal pain and nausea this morning. No vomiting. She was seen by Dr. Puente yesterday who recommended 3 additional days of Levaquin to be completed on 04/19. Blood pressure remains borderline hypotensive at 94/61 with mild tachycardia. She also complains of tenderness to her coccyx region. She is encouraged to continue to rotate her position frequently in light of her coccyx wound. On exam she is alert and appears to not feel well, holding her stomach. HEENT reveals sclerae to be anicteric and oropharynx is moist. Cardiac exam reveals tachycardia and lungs are clear to auscultation. Abdomen reveals positive bowel sounds. Wounds were note evaluated on exam in light of patient's pain and nausea. Extremities are free of edema. She received pain medication on exam. Labs today show up trending of leukocytosis with WBC at 17.6 (16.4 on 04/16)), anemia with hemoglobin at 7.5 (8.0 on 04/16) and thrombocytosis with platelets at 571 (546 on 04/16). BMP reveals worsening hyponatremia with sodium at 131 ( decreased from 133 on 04/16), elevated BUN and SCr at 51 and 1.2 respectively ( up from 43 and 1.0). LFTs continue to trend down. Urine output yesterday was only documented at 350 ML's for 24 hours. Output from her osteomy was 1850cc yesterday. Review of total IV infusion was noted to be low and did not include TPN. Discussed with nursing and working with IT to correct I&O measurements. In light of hyponatremia, borderline hypotension and elevated renal function with decreased urine output, will give 1L NS at 250cc/hr x 1 L followed by NS 100cc/hr for hydration. Recheck labs in AM to monitor blood counts, electrolytes and renal function. In light of worsening leukocytosis and increased abdominal pain with nausea, will check lactate and lipase now. LFTs continue to trend down. Will continue to monitor. Continue TPN. Will review I&O with nursing to ensure proper documentation of infusions to ensure accurate measurements. Monitor closely for signs or symptoms of infection, electrolyte abnormalities. She remains afebrile. Per Dr. Puente, continue Levaquin until 04/19 for coverage of ESBL. Blood cultures remain negative after 2 days. Monitor fluid status closely with daily weights and accurate I&O measurements. Nursing notified to contact hospitalist service if urinary output is <200cc over 6 hours. Continue to provide safe and supportive environment. Concern for depression. Consider psychiatric consult. <Yaz Olivier - Last Filed: 04/17/17 18:04> Objective Vital signs: Temperature 98.3 F 04/17/17 16:39 Pulse Rate 96 04/17/17 16:39 Respiratory Rate 20 04/17/17 14:54 Blood Pressure 103/63 04/17/17 16:39 Pulse Oximetry 96 04/17/17 16:39 Oxygen Delivery Method Room Air Results - Labs CBC & Chem 7: 04/17/17 15:53 04/17/17 15:53 Microbiology Results: Microbiology 04/10/17 21:22 Urine, Cath Mills Urine Culture - Final Klebsiella pneumoniae, ESBL 04/14/17 21:37 Peripheral/Iv Start Blood Culture - Preliminary No Growth After 2 Days 04/14/17 21:30 Peripheral/Iv Start Blood Culture - Preliminary No Growth After 2 Days Assessment and Plan (1) HTN (hypertension) Current visit: Yes Status: Chronic (2) Diabetes Current visit: Yes Status: Chronic (3) Open abdominal wall wound Current visit: Yes Status: Acute (4) Decubitus ulcer Current visit: Yes Status: Acute (5) Myopathy Current visit: Yes Status: Acute (6) Hyponatremia Current visit: Yes Status: Acute Assessment and Plan: 04/17/2017-I reviewed this chart, the patient history, and the [employer]'s/PA's documented findings as above. We discussed and formulated the assessment and plan as above with the additions below. I've seen and examined the patient independently. The patient complains of 9 out of 10 abdominal pain and states that this is the worst her pain is been here. She is having too much pain to sit up in bed, let alone do therapy. She has had increased drainage from her abdominal wound. Urine output has been poor. She has had nausea and intermittent vomiting. She denies any shortness of breath. Blood pressure is 96/61 with heart rate of 103. O2 sat is 99% on room air. She is afebrile today. Last fever was 04/14/2017 at 101.7. Urine output only 350 yesterday. Output from abdominal wound is over 3000 mL so far today and was 2000 ML's yesterday. On exam she is alert and in moderate distress secondary to pain. Chest is clear to auscultation. Cardiovascular reveals a borderline tachycardic rate with irregular rhythm. Abdomen is tender to palpation especially on the left side. She has an open abdominal wound with a clear dressing showing underlying bowel which appears pink. This is setup to dependent drainage and there is yellowish brown drainage present. Bowel sounds are present. Mills catheter is to dependent drainage and urine appears dark. Extremities are free of edema. Skin is warm and dry and without rashes. Lab today White count 17.9 up from 16.4. 43% neutrophils. Bands 3. Hemoglobin this morning 7.5 and after fluids was down to 6.6. During this hospital course hemoglobin has ranged from 7.7-8. This morning sodium was 131, BUN 51, creatinine 1.2 lactate is 1.6 and on repeat 1.4. Lipase 232. CPK 59. Impression Increasing abdominal pain patient with open abdominal wound, large pancreatic pseudocyst, and history of GI bleed Recent fever which the patient was initiated on Levaquin, she continues to have increasing white count. Decreased urine output with increasing renal function likely secondary to dehydration with GI loss. Acute on chronic anemia in a patient with history of GI bleed Plan Due to the increasing number of medical needs of this complicated patient, plans were made for transfer to [facility] surgical ICU in the care of her previous surgeons. We have initiated transfusion for anemia. I've spoken earlier today with Dr. Peters and he had reported the patient had a history of GI bleed and therefore Protonix was initiated. IV fluids were increased today secondary to decreased urine output and increasing BUN and creatinine. We did consider CT abdomen at our facility, but after the decision was made to transfer we decided not to perform CT abdomen here. Greater than 1 hour critical care time spent seeing and evaluating the patient, talking with Dr. Peters, talking with Dr. Woo, and arranging transfer. - Time spent with patient greater than 35 minutes (1 hour critical care time) Hospital Course Summary Disclaimer: The visit summary below is not to be considered part of the above Progress Note.
[2017-04-17] MEDS: MICONAZOLE 2% POWDER 45gm TP SCH (11:09)
[2017-04-17] MEDS: PROMETHAZINE 12.5 MG TABLET PO PRN (12:27)
[2017-04-17] MEDS ORDERED: SODIUM CHLORIDE IV SCH (13:00)
[2017-04-17] MEDS ORDERED: [UNRECOGNIZED DRUG - OTHER] IV SCH (13:00)
[2017-04-17] MEDS ORDERED: POTASSIUM CHLORIDE IV SCH (13:00)
[2017-04-17] MEDS ORDERED: SODIUM ACETATE IV SCH (13:00)
[2017-04-17] MEDS ORDERED: NS 500 ML IV ONE (13:45)
--- NOTE | 2017-04-17 16:33 | IRU Progress Note ---
- Subjective/Serverity of Illness Just discussed case with hospitalist Dr. Olivier. Laura has developed worsening abd pain, leukocytosis and reduced urine output along with worsening hgb (down to 6.6). Dr. Olivier recommends transfer to [facility] due to need for additional specialists. I agree and will write dismissal orders. Dr. Olivier to contact [facility] hospitalists for transfer. Exam Vital Signs: Temperature 98.7 F 04/17/17 14:54 Pulse Rate 94 04/17/17 14:54 Respiratory Rate 20 04/17/17 14:54 Blood Pressure 96/61 04/17/17 14:54 Pulse Oximetry 100 04/17/17 14:54 Oxygen Delivery Method Room Air Height: 1.57 m Weight: 76.5 kg Body Mass Index: 30.7 Sepsis Assessment - Evaluation Sepsis screening result: Sepsis Risk IRU A/P (1) Open abdominal wall wound Current visit: Yes Status: Acute Laura has worsening medical picture and will be transferred to [facility] by hospitalists. 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 On pain patch and today does not request additional pain medication from me. - Add AFO today for her foot drop 04/16/17 11:32 - Interventions to Obtain Goals PT Treatment Plan: Balance/Proprioception, Functional Activities, Gait Training , Patient/Family Education, Therapeutic Exercise OT Treatment Plan: ADL (Basic Care), Balance Training, Pt./Family Education, Ther. Exercise for ADL
[2017-04-17] MEDS ORDERED: NS FLUSH BAG 500ml IV PRN (16:35)
--- NOTE | 2017-04-17 16:36 | Discharge Instructions ---
Discharge Plan - Med Rec/Dispo Prescriptions: No Action LORazepam INJ [Ativan Inj] 0.13 ml IM Q6HPRN PRN PRN Reason: Anxiety Meperidine HCl/Pf [Meperidine 25 mg/ml Vial] 2 ml IV Q4HPRN PRN PRN Reason: Pain Albuterol/Ipratropium [Duoneb] 1 unit AEROSOL QIDPRN PRN PRN Reason: Shortness Of Air/Wheezing HydrOXYzine [Atarax] 25 mg PO QIDPRN PRN PRN Reason: Itching Hydromorphone HCl in 0.9% NaCl [Hydromorphone-Ns 1 mg/ml Syr] 0.25 mg IVP Q2HPRN PRN PRN Reason: Pain D50w [Dextrose 50% in Water] 50 ml IV O PRN PRN Reason: Hypoglycemia Glucagon [Glucagen] 1 mg IM PRN PRN PRN Reason: Hyperglycemia FentaNYL PATCH [Duragesic Patch] 50 mcg TD Q3D FentaNYL PATCH [Duragesic Patch] 25 mcg TD Q3D DiphenhydrAMINE [Benadryl] 25 mg IV Q8HPRN PRN PRN Reason: Itching Acetaminophen [Feverall] 650 mg RC Q4HPRN PRN PRN Reason: Fever Acetaminophen [Acetaminophen Extra Strength] 1,000 mg PO Q6HPRN PRN PRN Reason: Pain Polyethylene Glycol 3350 17 gm PO DAILY PRN PRN Reason: Constipation Oxycodone *Ir* [Roxicodone *Ir*] 5 - 10 mg PO Q4HPRN Miconazole 2% Powder [Desenex] 1 applic TP BID Saliva Substitute Mouth [place] [Biotene Moisturizing Mouth [place]] 1 applic PO QIDPRN PRN PRN Reason: Dry Mouth Nystatin Cream [Mycostatin] 1 applic TOP BID Insulin Lispro [Humalog] 2 - 12 unit SQ PRN PRN PRN Reason: Hyperglycemia Heparin Sodium,Porcine/Pf [Heparin Flush 10 Units/ml Syr] 1 ml IVP BID Furosemide [Lasix] 20 mg IM DAILY PRN PRN Reason: NEEDED Cetirizine [Zyrtec] 5 mg PO DAILY Ondansetron [Zofran Odt] 1 tab PO Q6HPRN PRN PRN Reason: Nausea Discharge Instructions/Outpatient Orders: Final Provider Discharge Instructions Location: Determined By Patient - Disposition 02 To [facility]
[2017-04-17] MEDS ORDERED: PANTOPRAZOLE 40 MG INJECTION IVP SCH (16:45)
[2017-04-17 20:52] VITALS: BP 98/54; PULSE 96; RESP 20; TEMP 101.9; O2SAT 96
--- NOTE | 2017-04-18 10:04 | Discharge Summary ---
Discharge Information Date of admission: 04/09/17 15:10 Attending Physician: Jovani Joyner MD Primary care physician: ODALYS Barkley Consults: 04/09/17 Pharmacy Consult [CONS] Routine Pharmacy Consult: TPN 04/09/17 16:37 Physician Consult [CONS] Routine Consulting Provider: Karl Grajeda Reason For Exam: medical management Ordering Provider has Notified Barrel Charrer Helper: Yes 04/10/17 13:08 Dietary Consult [CONS] Routine Comment: Reason For Exam: 04/15/17 17:07 Physician Consult [CONS] Routine Consulting Provider: Natacha Puente Reason For Exam: Fever, probable UTI, open abd wound, Ordering Provider has Notified Barrel Charrer Helper: No Comment: Please notify Sunday04/15/17 18:44 Dietary Consult [CONS] Routine Comment: Reason For Exam: - Discharge Diagnosis (1) Open abdominal wall wound Qualifiers: Encounter type: subsequent encounter Qualified Code(s): S31.109D - Unspecified open wound of abdominal wall, unspecified quadrant without penetration into peritoneal cavity, subsequent encounter Status: Acute (2) Myopathy Problem Details: Critical illness myopathy Status: Acute (3) Diabetes Qualifiers: Diabetes mellitus type: due to underlying condition Diabetes mellitus complication status: without complication 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 detention use Qualified Code(s): E08.9 - Diabetes mellitus due to underlying condition without complications Status: Chronic (4) HTN (hypertension) Qualifiers: Hypertension type: essential hypertension Qualified Code(s): I10 - Essential (primary) hypertension Status: Chronic - Laboratory Labs: 04/17/17 15:53 04/17/17 15:53 - Microbiology Microbiology 04/14/17 21:37 Peripheral/Iv Start Blood Culture - Preliminary No Growth After 3 Days 04/14/17 21:30 Peripheral/Iv Start Blood Culture - Preliminary No Growth After 3 Days 04/10/17 21:22 Urine, Cath Mills Urine Culture - Final Klebsiella pneumoniae, ESBL History of Present Illness HPI: 04/18/17 09:59 Laura initially underwent surgery for a neuroendocrine tumor in July 2016. This was in the pancreatic area apparently. Subsequent she has been hospitalized at several institutions and has an open wound. 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 She has a very complex medical history requiring intensive nursing care as well as medical care and supervision. She will require intensive PT and OT and a multidisciplinary approach. Hospital Course This is a general summary of the patient's hospital course. For more details refer to the complete medical record. Laura was admitted from acute care in [place] because of multiple medical problems and critical illness myopathy. She has an open wound on her abdomen with a drainage bag and suction present. She is on TPN. Has history of neuroendocrine tumor initially which was resected in July 2016. She has severe for extremity weakness. She has chronic and ongoing abdominal pain. She was admitted to the acute rehabilitation unit for a multidisciplinary individualized approach and effort to make her more independent and be able to return to her home. During the hospital stay she was evaluated and treated by occupational therapy, physical therapy, physician management and nursing management as well as pharmacy and social services manager and dietitian involvement. She did demonstrate some evidence of improvement although it was quite slow. Barriers to her improvement included predominantly medical issues including chronic abdominal pain. She subsequently developed worsening leukocytosis with poor urine output and acute kidney injury. She was followed by the hospitalist. She was given a fluid bolus but this failed to improve her status. Because of worsening leukocytosis at 17,000, reduced urine output with acute kidney injury and worsening abdominal pain, it was felt wisest to transfer her back to [facility] for a multidisciplinary medical and surgical approach at this time. She was transferred in stable but serious condition on . Transfer arrangements were made by the hospitalist, Dr. Olivier. Hospital course: Other ongoing medical problems. Recent pancreatitis Recent acute kidney injury Recurrent peritonitis Colocutaneous fistula Recent septic shock with Enterococcus Faecalis 04/10- Admission Plan Patient has a very complex past medical history Hospital services will continue to follow patient during her stay in the rehabilitation unit. Consult placed to wound care team for ongoing abdominal wound management and dressing changes. It was also reported that patient had a Consultation is placed to the pharmacy for TPN for ongoing nutrition. Patient is to be on a clear liquid diet, however, may not have more than 150 ML' s every hour while awake Monitor Accu-Cheks routinely. Continue with sliding scale Humalog 2-12 units. SCD to the lateral lower extremity for DVT prophylaxis Patient to PT and OT for ongoing strengthening Recheck CBC and BMP tomorrow morning to follow blood counts, renal function and electrolytes 04/11 Reviewed admission urinalysis from yesterday revealing trace protein, plus blood , positive nitrates, 2+ leukocyte esterase, 5-10 RBCs with 10-20 WBCs with presence of yeast and bacteria. It is unclear if this is colonized and chronic. Given long-term indwelling Mills catheter. Given her complaints of urethral discomfort accompanied with positive urinalysis at this time we will go ahead and treat starting 1 gram of IV Rocephin. We did discuss that utilizing antibiotics need to be conservative given she is at risk for jackelin C. difficile. We will also change of Mills catheter today. Continue with topical fentanyl patch. Suspect that patient may not get adequate pain control from oral pain pills, she likely does not absorb this in her GI tract. Did discuss pain control further with rehabilitation attending, Dr. Joyner We'll recheck CBC and BMP tomorrow morning to follow blood counts, renal function and electrolyte Encourage patient to participate in physical therapy and occupational therapy as it is her goal that she will improve and be able to be discharged home. Case discussed with multiple disciplinary team members including PT, Nursing staff, infectious disease, IRU directer, Dr Joyner and Dr Grajeda 04/12/17 Abdominal wound: Continue care per wound team. Bacturia: Preliminary urine culture is showing gram-negative rods, yeast. Will await final culture report before initiating any antibiotic therapy. Suspect colonization. She had one isolated temperature of 100F. White count is trending down. Bilateral rales: Suspect atelectasis, but she has not had a chest x-ray since arrival. Will obtain portable chest x-ray. Encourage incentive spirometry. Respiratory therapy recommends an overnight oximetry, which will be done tonight. Macrocytic anemia: Hemoglobin 7.8. Assess vitamin B12 and folate. Repeat CBC tomorrow morning Continue TPN. Reassess BMP, magnesium and phosphorus levels tomorrow morning. Glucose has been reasonably controlled. Elevated LFTs: Possibility related to TPN. Will repeat tomorrow morning. 04/14/17 11:37 Abdominal wound/decubitus ulcers: Continue care per wound team. Bacturia: Preliminary urine culture is showing gram-negative rods, yeast. Culture showed Klebsiella pneumonia. Suspect colonization. WBC stable at 9.7 and she remains afebrile. Continue to monitor closely. Will hold off on antibiotics for now. Bilateral rales: Suspect atelectasis. CXR on 04/12 showed atelectasis. Encourage incentive spirometry. Technique and importance reviewed with patient on exam. Respiratory therapy recommends an overnight oximetry - results pending. Macrocytic anemia: Hemoglobin stable at 7.9. Assess vitamin B12 and folate - results pending. Continue to monitor trends. Continue TPN. Persistent hyponatremia with sodium at 133. Continue fluid restriction. Elevated phosphorus - results communicated with pharmacy which will adjust TPN accordingly. Glucose has been reasonably controlled. Elevated LFTs: Possibility related to TPN and trending up - monitor closely. Will recheck labs - CBC, CMP and phosphorus on 04/16. 04/15/17 Abdominal wound/decubitus ulcers: Continue care per wound team. Bacturia: Culture showed Klebsiella pneumoniae present on admission. Given increase in white count, accompanied with fever and tachycardia overnight. Blood Cultures were obtained as well as chest x-ray. Reviewed culture and sensitivity of urinalysis. Will start IV Levaquin 500 milligrams for antimicrobial coverage. Macrocytic anemia: Hemoglobin stable at 8.0. Assess vitamin B12 and folate - results pending. Continue to monitor trends. Continue TPN. Persistent hyponatremia with sodium at 133. Continue oral fluid restriction. Monitor regular, electrolytes Elevated LFTs: Likely related to recent pancreatitis. LFTs continue to trend down. IV Intralipid 20%, (fat emulsion) remains on hold. 04/16 Patient is seen by Dr. Puente today for further infectious disease recommendations. Urine microbiology was reviewed by Dr. Puente. She suspects culture is likely colonization. She recommended continuing 3 additional days of Levaquin and then stopping on 04/19 following this dose. At this point. Blood cultures from 04/14 are negative. We will continue to monitor. Continued wound management for abdominal wound Overall blood sugars appear to be well controlled. LFTs do continue to trend down as Intralipid remains on hold given recent pancreatitis Continue TPN for nutrition, and monitor electrolytes carefully. Encourage continued work with PT and OT for ongoing strengthening Will discuss further orders and plan of care with attending, Dr. Olivier 04/17/17 11:09 Laura is having increased abdominal pain and nausea this morning. No vomiting. She was seen by Dr. Puente yesterday who recommended 3 additional days of Levaquin to be completed on 04/19. Blood pressure remains borderline hypotensive at 94/61 with mild tachycardia. She also complains of tenderness to her coccyx region. She is encouraged to continue to rotate her position frequently in light of her coccyx wound. On exam she is alert and appears to not feel well, holding her stomach. HEENT reveals sclerae to be anicteric and oropharynx is moist. Cardiac exam reveals tachycardia and lungs are clear to auscultation. Abdomen reveals positive bowel sounds. Wounds were note evaluated on exam in light of patient's pain and nausea. Extremities are free of edema. She received pain medication on exam. Labs today show up trending of leukocytosis with WBC at 17.6 (16.4 on 04/16)), anemia with hemoglobin at 7.5 (8.0 on 04/16) and thrombocytosis with platelets at 571 (546 on 04/16). BMP reveals worsening hyponatremia with sodium at 131 ( decreased from 133 on 04/16), elevated BUN and SCr at 51 and 1.2 respectively ( up from 43 and 1.0). LFTs continue to trend down. Urine output yesterday was only documented at 350 ML's for 24 hours. Output from her osteomy was 1850cc yesterday. Review of total IV infusion was noted to be low and did not include TPN. Discussed with nursing and working with IT to correct I&O measurements. In light of hyponatremia, borderline hypotension and elevated renal function with decreased urine output, will give 1L NS at 250cc/hr x 1 L followed by NS 100cc/hr for hydration. Recheck labs in AM to monitor blood counts, electrolytes and renal function. In light of worsening leukocytosis and increased abdominal pain with nausea, will check lactate and lipase now. LFTs continue to trend down. Will continue to monitor. Continue TPN. Will review I&O with nursing to ensure proper documentation of infusions to ensure accurate measurements. Monitor closely for signs or symptoms of infection, electrolyte abnormalities. She remains afebrile. Per Dr. Puente, continue Levaquin until 04/19 for coverage of ESBL. Blood cultures remain negative after 2 days. Monitor fluid status closely with daily weights and accurate I&O measurements. Nursing notified to contact hospitalist service if urinary output is <200cc over 6 hours. Continue to provide safe and supportive environment. Concern for depression. Consider psychiatric consult. Discharge Plan - Med Rec/Dispo [place] Instructions: Mills Catheter Placement and Care (DC), How to Prevent Pressure Ulcers (DC) Prescriptions: No Action LORazepam INJ [Ativan Inj] 0.13 ml IM Q6HPRN PRN PRN Reason: Anxiety Meperidine HCl/Pf [Meperidine 25 mg/ml Vial] 2 ml IV Q4HPRN PRN PRN Reason: Pain Albuterol/Ipratropium [Duoneb] 1 unit AEROSOL QIDPRN PRN PRN Reason: Shortness Of Air/Wheezing HydrOXYzine [Atarax] 25 mg PO QIDPRN PRN PRN Reason: Itching Hydromorphone HCl in 0.9% NaCl [Hydromorphone-Ns 1 mg/ml Syr] 0.25 mg IVP Q2HPRN PRN PRN Reason: Pain D50w [Dextrose 50% in Water] 50 ml IV O PRN PRN Reason: Hypoglycemia Glucagon [Glucagen] 1 mg IM PRN PRN PRN Reason: Hyperglycemia FentaNYL PATCH [Duragesic Patch] 50 mcg TD Q3D FentaNYL PATCH [Duragesic Patch] 25 mcg TD Q3D DiphenhydrAMINE [Benadryl] 25 mg IV Q8HPRN PRN PRN Reason: Itching Acetaminophen [Feverall] 650 mg RC Q4HPRN PRN PRN Reason: Fever Acetaminophen [Acetaminophen Extra Strength] 1,000 mg PO Q6HPRN PRN PRN Reason: Pain Polyethylene Glycol 3350 17 gm PO DAILY PRN PRN Reason: Constipation Oxycodone *Ir* [Roxicodone *Ir*] 5 - 10 mg PO Q4HPRN Miconazole 2% Powder [Desenex] 1 applic TP BID Saliva Substitute Mouth [place] [Biotene Moisturizing Mouth [place]] 1 applic PO QIDPRN PRN PRN Reason: Dry Mouth Nystatin Cream [Mycostatin] 1 applic TOP BID Insulin Lispro [Humalog] 2 - 12 unit SQ PRN PRN PRN Reason: Hyperglycemia Heparin Sodium,Porcine/Pf [Heparin Flush 10 Units/ml Syr] 1 ml IVP BID Furosemide [Lasix] 20 mg IM DAILY PRN PRN Reason: NEEDED Cetirizine [Zyrtec] 5 mg PO DAILY Ondansetron [Zofran Odt] 1 tab PO Q6HPRN PRN PRN Reason: Nausea Discharge Instructions/Outpatient Orders: Final Provider Discharge Instructions Location: Determined By Patient - Disposition [facility] Acute Care
== END 2017-04-17 20:43 | disposition short-term general hospital (02) | DRG 92 ==
PROVIDERS: ADMIT Family Medicine; ATTEND Family Medicine

== ENCOUNTER 2017-05-07 11:09 | Inpatient (IN) ==
--- OUTSIDE RECORDS SUMMARY | 2017-05-07 12:17 | External Medical Summary ---
:1975 Author Name GENERATED, SYSTEM Care Team Providers Name Role Phone UNASSIGNED DOCTOR MD MARYCRUZ DOCTOR Primary Care Provider [phone] Reason For Visit Chief Complaint ABDOMINAL PAIN Social History Functional Status Vital Signs Results Problems Encounter Diagnosis No relevant problems exist. Encounters Encounter Diagnosis No relevant problems exist. Plan of Care Procedures Completed Laparoscopic Cholecystectomy, by MD MABLE MACDONALD, on 05/25/2016 3:49 PM Immunizations No immunizations administered or ordered. Hospital Course Hospital Discharge Instructions Allergies, Adverse Reactions, Alerts Latex Allergy has not been assessed.IV Contrast Allergy has not been assessed.No Known Drug Allergies. Medication Medication reconciliation has not been performed.
--- OUTSIDE RECORDS SUMMARY | 2017-05-07 12:17 | External Medical Summary | Continuity of Care Document ---
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 Social History Element Code Description Smoking Start Date End Date Description Status Code System Smoking Status 121143080 Never smoker SNOMED-CT Problems Code Code System Problem Name Start Date End Date Status 30237532 SNOMED-CT Cough 09/12/2015 Active Medications RxNorm Medication Dose Route Instructions Indications Start End Status Date Date 815552 3 ML 1.2 Subcutaneou subcutaneously Active liraglutide milligram s every day 6 MG/ML Pen Injector 88718 valsartan 160 Oral orally every Active milligram day 12870 zolpidem 12.5 Oral orally every Active milligram day at bedtime 683878 Amoxicillin 1 tablet Oral orally 2 times No 875 MG / per day Longer Clavulanate Active 125 MG Oral Tablet Allergies No Known Allergies Results Radiology Results Order: MRABDWO MR Abdomen WO/ContrastExam Completion Date:05/15/2016 08:45INDICATION: D37.8-Mesentary vs. Pancreatic MassMR Abdomen WO/Contrast: Multiplanar and multisequence imaging was performedwithout gadolinium.Comparison: Abdomen and pelvis CT 05/10/2016Findings : Again seen as on 05/10/2015 is a poorly defined spiculated solid massat the root of the small bowel mesentery. This is very worrisome for neoplasm.By MRI this appears separate from the pancreas. Possibilities include lymphomaand a sarcoma. There is a 2.5 x 2.5 cm mass in the right anterolateral aspectof the liver. This is also worrisome for neoplasm. 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 This may be amenable to an ultrasound-guided percutaneous coreneedle biopsy.The gallbladder is not distended. There is no bile duct or pancreatic ductdilatation. The spleen is not enlarged. There are no renal masses. Neitherkidneyis obstructed. There is no bowel dilatation or ascites.Released By LETICIA HORN, MDDate: 05/15/2016 10:02 Vital Signs No data in the system Plan of Care No data in the system Procedures No data in the system Encounters Date Code Diagnosis Status (ICD10) - D378 BRAYDON UNCRT BHV OTH SPEC DIGESTV Active ORGN Immunizations No data in the system Functional Status No data in the system Hospital Discharge Instructions No data in the system
--- OUTSIDE RECORDS SUMMARY | 2017-05-07 12:17 | External Medical Summary | Continuity of Care Document ---
:1975 Author Organization [facility] Support Name Relationship Address Phone LETICIA GARCIA Spouse [address] [place] [address] LETICIA GARCIA Spouse [address] [place] [address] Hospital Admission Diagnosis No data in the System Social History Element Code Description Smoking Start Date End Date Description Status Code System Smoking Status [id number] Never smoker SNOMED-CT Problems Code Code System Problem Name Start Date End Date Status 44158392 SNOMED-CT Cough 09/12/2015 Active Medications RxNorm Medication Dose Route Instructions Indications Start End Status Date Date 985408 3 ML 1.2 Subcutaneou subcutaneously Active liraglutide milligram s every day 6 MG/ML Pen Injector 17835 valsartan 160 Oral orally every Active milligram day 96072 zolpidem 12.5 Oral orally every Active milligram day at bedtime 446918 Amoxicillin 1 tablet Oral orally 2 times No 875 MG / per day Longer Clavulanate Active 125 MG Oral Tablet Allergies No Known Allergies Results Laboratory Results Order: Bilirubin DirectLegend: D=Delta, H= High, L=Low, HH=Critical High, LL=Critical Low, AA=Critical Alpha-Numeric, C= Corrected, A=Abnormal LOINC Test Result Flag Range Units Date 1968-03 0.09 0.03-0.18 mg/dl 07/10/2016 1Bilirub 13:10 [facility] Performing Lab Footnotes:[facility] [id number] - [address] [place] [address] - [place]TO[place] M [place] Order: Activated Partial Thromboplastin TimeLegend: D=Delta, H=High, L=Low, HH= Critical High, LL=Critical Low, AA=Critical Alpha-Numeric, C=Corrected, A= Abnormal LOINC Test Result Flag Range Units Date 25.5 24.0-35.0 Seconds 07/10/2016 1PTT 11:30 Performing Lab Footnotes:[address] [place] [address] - [id number] - [address] [place] [address], [place] [address] - [facility] [place] Order: CBC With Automated DifferentialLegend: D=Delta, H=High, L=Low, HH= Critical High, LL=Critical Low, AA=Critical Alpha-Numeric, C=Corrected, A= Abnormal LOINC Test Result Flag Range Units Date 6690-2 7.7 4.5-11.0 10^3/mm3 07/10/2016 1WBC # Bld 11:30 Auto 37915-9 4.65 4.00-5.20 10^6/mm3 07/10/2016 1Retics # 11:30 Auto 55120-4 14.2 12.0-16.0 g/dl 07/10/2016 1Hgb 11:30 BldV-mCnc 4544-3 41.8 36.0-46.0 % 07/10/2016 1Hct VFr Bld 11:30 Auto 787-2 89.9 82.0-100.0 10^6/mm3 07/10/2016 1MCV RBC Auto 11:30 785-6 30.5 27.0-34.0 pg 07/10/2016 1MCH RBC Qn 11:30 Auto 786-4 34.0 32.0-36.0 g/dl 07/10/2016 1MCHC RBC 11:30 Auto-mCnc 788-0 13.0 11.7-15.0 % 07/10/2016 1RDW RBC 11:30 Auto-Rto 777-3 361 150-450 10^3/mm3 07/10/2016 1Platelet # 11:30 Bld Auto 23152-6 9.9 7.4-10.4 07/10/2016 1PMV Bld 11:30 65532-8 70.7 40.0-74.0 % 07/10/2016 1Neutrophils 11:30 # CSF 22.2 14.0-46.0 % 07/10/2016 1LYMPH% 11:30 09025-9 5.5 4.0-13.0 % 07/10/2016 1CD43 Ag Tiss 11:30 Ql ImStn 711-2 1.2 0.0-4.0 % 07/10/2016 1Eosinophil # 11:30 Bld Auto 704-7 0.4 <=3.0 % 07/10/2016 1Basophils # 11:30 Bld Auto 751-8 5.4 1.8-7.8 07/10/2016 1Neutrophils 11:30 # Bld Auto 26176-5 1.7 0.7-4.5 07/10/2016 1Lymphocytes 11:30 # Bld 78519-7 0.4 0.1-1.0 07/10/2016 1CD43 Ag Tiss 11:30 Ql ImStn 711-2 0.09 <=4.00 07/10/2016 1Eosinophil # 11:30 Bld Auto 704-7 0.03 <=0.20 07/10/2016 1Basophils # 11:30 Bld Auto N 07/10/2016 1MANDIFF 11:30 52721-6 N 07/10/2016 1RBC Bld Auto 11:30 Performing Lab Footnotes:[facility] [id number] - [address] [place], [place] [id number] [place] [address] [place] Order: Comprehensive Metabolic PanelLegend: D=Delta, H=High, L=Low, HH= Critical High, LL=Critical Low, AA=Critical Alpha-Numeric, C=Corrected, A= Abnormal LOINC Test Result Flag Range Units Date 2345-03 89 70-105 mg/dl 07/10/2016 1Glucose 11:30 SerPl-mCnc 3094-0 1BUN 13 7-25 mg/dl 07/10/2016 SerPl-mCnc 11:30 2160-0 1Creat 0.8 0.6-1.3 mg/dl 07/10/2016 SerPl-mCnc 11:30 76086-8 16 13-39 07/10/2016 Creat/Urea nit 11:30 SerPl 2951-2 141 135-145 mmol/L 07/10/2016 1Sodium 11:30 SerPl-sCnc 68536-0 3.1 L 3.5-5.1 mmol/L 07/10/2016 1Potassium 11:30 SerPl-mCnc 2075-0 106 98-107 mmol/l 07/10/2016 1Chloride 11:30 SerPl-sCnc 8-9 1CO2 23 21-31 mmol/l 07/10/2016 SerPl-sCnc 11:30 24291-0 1Anion 15 9-16 mmol/L 07/10/2016 Gap SerPl-sCnc 11:30 2692-2 292 277-298 mOsm/kg 07/10/2016 Osmolality SerPl 11:30 28946-1 9.4 8.2-10.0 mg/dl 07/10/2016 1Calcium 11:30 SerPl-mCnc 1742-6 1ALT 41 7-52 IU/L 07/10/2016 SerPl-cCnc 11:30 1920-8 1AST 27 13-39 IU/L 07/10/2016 SerPl-cCnc 11:30 1715-2 1ACP 44 34-104 U/L 07/10/2016 SerPl-cCnc 11:30 1975-2 0.6 0.3-1.0 mg/dl 07/10/2016 1Bilirub 11:30 [facility] 1Prot 7.6 6.0-8.3 g/dL 07/10/2016 SerPl-mCnc 11:30 1751-7 4.3 3.5-5.7 g/dl 07/10/2016 1Albumin 11:30 [facility] 2336-6 3.3 H 2.3-3.2 g/dL 07/10/2016 Globulin 11:30 [facility] 1759-0 1.3 1.2-2.0 07/10/2016 Albumin/Glob 11:30 SerP 1GFR 92 60-116 GFRunits 07/10/2016 11:30 Performing Lab Footnotes:[address] [place] [id number] [place] Order: MagnesiumLegend: D=Delta, H=High, L=Low, HH=Critical High, LL=Critical Low, AA=Critical Alpha-Numeric, C=Corrected, A=Abnormal LOINC Test Result Flag Range Units Date 1.9 1.9-2.7 mg/dL 07/10/2016 1Magnesium 11:30 Performing Lab Footnotes:[address] [place] [id number] [place] Order: PhosphorusLegend: D=Delta, H=High, L=Low, HH=Critical High, LL=Critical Low, AA=Critical Alpha-Numeric, C=Corrected, A=Abnormal LOINC Test Result Flag Range Units Date 2567-6 2.5 1.9-4.5 mg/dL 07/10/2016 1Phospholipi 11:30 d P Ser-mCnc Performing Lab Footnotes:[facility] - [id number] - [address] [place] Order: Protime With INRLegend: D=Delta, H=High, L=Low, HH=Critical High, LL= Critical Low, AA=Critical Alpha-Numeric, C=Corrected, A=Abnormal LOINC Test Result Flag Range Units Date 1PT 9.9 9.1-11.6 Seconds 07/10/2016 11:30 81062-6 1INR p 0.96 0.90-1.15 07/10/2016 heparin 11:30 adsorption PPP Performing Lab Footnotes:[facility] [id number] - [address] [place] [address] [place] Radiology Results Order: CXR2VW Chest x-ray 2 viewsExam Completion Date:07/10/2016 12:32INDICATION: Secondary malignant neoplasm of liver and intrahepatic bile duct COMPARISON: none.Chest x-ray 2 views: Heart size is within a normal range. The lungs arenormally expanded and clear. There is no evidence of a pleural effusion.IMPRESSION: Negative chestReleased By DAT CHILDRESS, MDDate: 07/10/2016 12:49 Vital Signs No data in the system Plan of Care No data in the system Procedures No data in the system Encounters No data in the system Immunizations No data in the system Functional Status No data in the system Hospital Discharge Instructions No data in the system
--- OUTSIDE RECORDS SUMMARY | 2017-05-07 12:17 | External Medical Summary ---
:1975 Author Name GENERATED, SYSTEM Care Team Providers Name Role Phone UNASSIGNED DOCTOR MD MARYCRUZ DOCTOR Primary Care Provider [phone] Reason For Visit Chief Complaint CHOLELITHIAS,LAP CHOLECYSTECTOMY Social History Social History from 05/25/2016 5:10 PM:Tobacco Use? : Unknown if Ever Smoked Functional Status Functional Status from 05/25/2016 6:10 PM:LOC : AlertFunctional Status from 2015 5:15 PM:LOC : AlertOriented To : Person,PlaceFunctional Status from 2015 4:57 PM:LOC : Drowsy Vital Signs Hospital Vital Signs from 05/25/2016 7:00 PM:Height : 5/2 ft,inPulse : 79Respirations : 18BP : 147/91Hospital Vital Signs from 05/25/2016 6:45 PM: Height : 5/2 ft,inPulse : 74Respirations : 18BP : 137/85Hospital Vital Signs from 05/25/2016 6:30 PM:Height : 5/2 ft,inPulse : 98Respirations : 18BP : 124/ 83Hospital Vital Signs from 05/25/2016 6:25 PM:Height : 5/2 ft,inTemperature : 97.4 FPulse : 102Respirations : 18BP : 133/75Hospital Vital Signs from 2015 6:10 PM:Heart Rate : 95Resp Rate : 15Systolic BP (mmHg) : 130Diastolic BP ( mmHg) : 84Mean BP (mmHg) : 104O2 Saturation (%) : 95Hospital Vital Signs from 6:05 PM:Heart Rate : 102Resp Rate : 13Systolic BP (mmHg) : 146Diastolic BP (mmHg) : 88Mean BP (mmHg) : 105O2 Saturation (%) : 94Hospital Vital Signs from 05/25/2016 6:00 PM:Temp : 99.4Heart Rate : 94Resp Rate : 14Systolic BP (mmHg ) : 141Diastolic BP (mmHg) : 87Mean BP (mmHg) : 103O2 Saturation (%) : 94Hospital Vital Signs from 05/25/2016 5:55 PM:Heart Rate : 94Resp Rate : 16Systolic BP (mmHg) : 133Diastolic BP (mmHg) : 82Mean BP (mmHg) : 99O2 Saturation (%) : 97Hospital Vital Signs from 05/25/2016 5:50 PM:Heart Rate : 86Resp Rate : 19Systolic BP (mmHg) : 132Diastolic BP (mmHg) : 85Mean BP (mmHg) : 102O2 Saturation (%) : 93Hospital Vital Signs from 05/25/2016 5:45 PM:Temp : 99.2Heart Rate : 90Resp Rate : 21Systolic BP (mmHg) : 129Diastolic BP (mmHg) : 75Mean BP (mmHg) : 99O2 Saturation (%) : 93Hospital Vital Signs from 05/25/2016 5 :40 PM:Heart Rate : 86Resp Rate : 19Systolic BP (mmHg) : 133Diastolic BP (mmHg) : 72Mean BP (mmHg) : 101O2 Saturation (%) : 93Hospital Vital Signs from 2015 5:35 PM:Heart Rate : 95Resp Rate : 16Systolic BP (mmHg) : 135Diastolic BP ( mmHg) : 84Mean BP (mmHg) : 103O2 Saturation (%) : 95Hospital Vital Signs from 5:30 PM:Temp : 98.6Heart Rate : 95Resp Rate : 14Systolic BP (mmHg) : 141Diastolic BP (mmHg) : 80Mean BP (mmHg) : 97O2 Saturation (%) : 94Hospital Vital Signs from 05/25/2016 5:25 PM:Heart Rate : 96Resp Rate : 20Systolic BP ( mmHg) : 146Diastolic BP (mmHg) : 77Mean BP (mmHg) : 106O2 Saturation (%) : 94Hospital Vital Signs from 05/25/2016 5:20 PM:Heart Rate : 96Resp Rate : 28Systolic BP (mmHg) : 140Diastolic BP (mmHg) : 26Mean BP (mmHg) : 38O2 Saturation (%) : 93Hospital Vital Signs from 05/25/2016 5:15 PM:Temp : 97.7Heart Rate : 92Resp Rate : 11Systolic BP (mmHg) : 132Diastolic BP (mmHg) : 88Mean BP ( mmHg) : 106O2 Saturation (%) : 91Hospital Vital Signs from 05/25/2016 5:10 PM: Heart Rate : 98Resp Rate : 24Systolic BP (mmHg) : 126Diastolic BP (mmHg) : 80Mean BP (mmHg) : 99O2 Saturation (%) : 87Hospital Vital Signs from 05/25/2016 5 :05 PM:Heart Rate : 108Resp Rate : 21Systolic BP (mmHg) : 134Diastolic BP (mmHg ) : 64Mean BP (mmHg) : 92O2 Saturation (%) : 96Hospital Vital Signs from 2015 5:01 PM:Temp : 98.2Heart Rate : 120Resp Rate : 20Systolic BP (mmHg) : 117Diastolic BP (mmHg) : 59Mean BP (mmHg) : 86O2 Saturation (%) : 96Hospital Vital Signs from 05/25/2016 3:39 PM:Weight : 188/0 lbs,ozHeight : 5/2 ft,in Results Problems Encounter Diagnosis No relevant problems exist. Encounters Encounter Diagnosis No relevant problems exist. Plan of Care Follow-up Appointments from 05/25/2016 5:10 PM:#1 Office appointment: : Dr. Pires # 1 : [facility]: [address] [place], [place] [address]- [phone] or Procedures Completed Laparoscopic Cholecystectomy, by MD MABLE MACDONALD, on 05/25/2016 3:49 PM Immunizations No immunizations administered or ordered. Hospital Course Hospital Discharge Instructions How to care for yourself at home from 05/25/2016 5:10 PM:Discharge Activity : Activity as tolerated,May Shower,Do not engage in sports, heavy work or heavy lifting until your physician gives permissionDo not drive or operate machinery for: : 24 hoursDischarge Diet : As before hospitalization,Diet as toleratedDischarge Wound Care : Keep dressings dry,Notify your physician if the following develops: redness, swelling, drainage or color of drainage changes, odor or increased pain.Remove dressing in: : on 05/27/16Call your doctor if: : Fever over 101 F or severe chills,Tingling or numbness develops, You have persistent or worsening symptomsSpecific Discharge Teaching Instructions provided: : NoDischarge on Warfarin : No Allergies, Adverse Reactions, Alerts No Latex Allergy.No IV Contrast Allergy.No Known Drug Allergies. Medication Medication reconciliation has not been performed.
--- OUTSIDE RECORDS SUMMARY | 2017-05-07 12:17 | External Medical Summary | Summary of Care ---
:1975 Author Name Tommy Diaz D.O. Address [address], [place] [address] Care Team Providers Name Role Phone Tommy Diaz D.O. Unavailable Unavailable Unavailable Unavailable Unavailable Functional Status Functional Status Health Issues Name Dates Details Functional status health issues are not documented Status: Cognitive Status Health Issues Name Dates Details Cognitive status health issues are not documented Status: Problems Name Dates Details Abdominal pain, acute, generalized (789.07, R10.84) Status: Active Nausea and/or vomiting (787.01, R11.2) Status: Active Liver neoplasm (239.0, D49.0) Status: Active Medications Name Dates Details Medication not documented Allergies and Adverse Reactions Name Dates Details No Known Drug Allergies (Allergy) Status: Active Procedures Procedure Dates Details Procedures not documented Immunization Name Dates Details Immunizations not documented Social History Smoking Status Name Dates Details Unknown if ever smoked Vital Signs Date Test Result Details No Known Vitals to report Results Date Description Value Details Results not documented Plan of Care Name Dates Details Planned Observations Planned Goals not documented Instructions Name Dates Details Instructions not documented Encounters Appointment; Andrew Diaz D.O. On 25-May-2016 Encounter Diagnosis: Problem not documented 11:24
--- OUTSIDE RECORDS SUMMARY | 2017-05-07 12:17 | External Medical Summary | Continuity of Care Document ---
:1975 Author Organization [facility] Care Team Providers Name Role Phone DAT MCDANIEL Admitting Physician Unavailable DAT MCDANIEL Attending Physician Unavailable Hospital Admission Diagnosis No data in the System Social History Element Code Description Smoking Start Date End Date Description Status Code System Smoking Status [id number] Never smoker SNOMED-CT Problems Code Code System Problem Name Start Date End Date Status 60431660 SNOMED-CT Cough 09/12/2015 Active Medications RxNorm Medication Dose Route Instructions Indications Start End Status Date Date 834009 3 ML 1.2 Subcutaneou subcutaneously Active liraglutide milligram s every day 6 MG/ML Pen Injector 22621 valsartan 160 Oral orally every Active milligram day 93937 zolpidem 12.5 Oral orally every Active milligram day at bedtime 964325 Amoxicillin 1 tablet Oral orally 2 times No 875 MG / per day Longer Clavulanate Active 125 MG Oral Tablet Allergies No Known Allergies Results Laboratory Results Order: CBC With Automated DifferentialLegend: D=Delta, H=High, L=Low, HH=Critical High, LL=Critical Low, AA=Critical Alpha-Numeric, C=Corrected, A=Abnormal LOINC Test Result Flag Range Units Date 6690-2 10.5 4.5-11.0 10^3/mm3 05/10/2016 1WBC # Bld 07:35 Auto 03002-4 4.51 4.00-5.20 10^6/mm3 05/10/2016 1Retics # 07:35 Auto 52087-6 13.8 12.0-16.0 g/dl 05/10/2016 1Hgb 07:35 BldV-mCnc 4544-3 40.7 36.0-46.0 % 05/10/2016 1Hct VFr Bld 07:35 Auto 787-2 90.2 82.0-100.0 10^6/mm3 05/10/2016 1MCV RBC Auto 07:35 785-6 30.6 27.0-34.0 pg 05/10/2016 1MCH RBC Qn 07:35 Auto 786-4 33.9 32.0-36.0 g/dl 05/10/2016 1MCHC RBC 07:35 Auto-mCnc 788-0 12.8 11.7-15.0 % 05/10/2016 1RDW RBC 07:35 Auto-Rto 777-3 377 150-450 10^3/mm3 05/10/2016 1Platelet # 07:35 Bld Auto 04057-1 9.3 7.4-10.4 05/10/2016 1PMV Bld 07:35 34391-9 72.2 40.0-74.0 % 05/10/2016 1Neutrophils 07:35 # CSF 20.4 14.0-46.0 % 05/10/2016 1LYMPH% 07:35 86594-1 6.7 4.0-13.0 % 05/10/2016 1CD43 Ag Tiss 07:35 Ql ImStn 711-2 0.5 0.0-4.0 % 05/10/2016 1Eosinophil # 07:35 Bld Auto 704-7 0.2 <=3.0 % 05/10/2016 1Basophils # 07:35 Bld Auto 751-8 7.6 1.8-7.8 05/10/2016 1Neutrophils 07:35 # Bld Auto 79452-8 2.1 0.7-4.5 05/10/2016 1Lymphocytes 07:35 # Bld 12634-6 0.7 0.1-1.0 05/10/2016 1CD43 Ag Tiss 07:35 Ql ImStn 711-2 0.05 <=4.00 05/10/2016 1Eosinophil # 07:35 Bld Auto 704-7 0.02 <=0.20 05/10/2016 1Basophils # 07:35 Bld Auto N 05/10/2016 2MANDIFF 07:35 36822-8 N 05/10/2016 2RBC Bld Auto 07:35 Performing Lab Footnotes:1[facility] - [id number] - [address] [place], [place] [address]QZI - SHANELLE NG2[facility] - [id number] - [address] [place] [address] [facility] - [employer] Operator:, Shanelle Ng MD - SHANELLE NG Order: Comprehensive Metabolic PanelLegend: D=Delta, H=High, L=Low, HH= Critical High, LL=Critical Low, AA=Critical Alpha-Numeric, C=Corrected, A= Abnormal LOINC Test Result Flag Range Units Date 2345-7 113 H 70-105 mg/dl 05/10/2016 1Glucose 07:35 SerPl-mCnc 3094-0 10 7-25 mg/dl 05/10/2016 1BUN 07:35 SerPl-mCnc 2160-0 0.6 0.6-1.3 mg/dl 05/10/2016 1Creat 07:35 SerPl-mCnc 62017-3 17 13-39 05/10/2016 1Creat/Urea 07:35 nit SerPl 2951-2 136 135-145 mmol/L 05/10/2016 1Sodium 07:35 SerPl-sCnc 75793-5 3.0 L 3.5-5.1 mmol/L 05/10/2016 1Potassium 07:35 SerPl-mCnc 2075-0 101 98-107 mmol/l 05/10/2016 1Chloride 07:35 SerPl-sCnc 2028-9 25 21-31 mmol/l 05/10/2016 1CO2 07:35 SerPl-sCnc 44092-0 13 9-16 mmol/L 05/10/2016 1Anion Gap 07:35 SerPl-sCnc 2692-2 282 277-298 mOsm/kg 05/10/2016 1Osmolality 07:35 SerPl 28272-0 8.6 8.2-10.0 mg/dl 05/10/2016 1Calcium 07:35 SerPl-mCnc 1742-6 24 7-52 IU/L 05/10/2016 1ALT 07:35 SerPl-cCnc 1920-8 29 13-39 IU/L 05/10/2016 1AST 07:35 SerPl-cCnc 1715-2 40 34-104 U/L 05/10/2016 1ACP 07:35 SerPl-cCnc 1975-2 1.1 H 0.3-1.0 mg/dl 05/10/2016 1Bilirub 07:35 SerPl-mCnc 2885-2 7.1 6.0-8.3 g/dL 05/10/2016 1Prot 07:35 SerPl-mCnc 1751-7 4.1 3.5-5.7 g/dl 05/10/2016 1Albumin 07:35 SerPl-mCnc 2336-6 3.0 2.3-3.2 g/dL 05/10/2016 1Globulin 07:35 Ser-mCnc 1759-0 1.4 1.2-2.0 05/10/2016 1Albumin/Mariella 07:35 b SerPl 106 60-116 GFRunits 05/10/2016 1GFR 07:35 [facility]forming Lab Footnotes:[facility] [id number] - [address] [place], [place] [address]OFI - SHANELLE NG Order: LipaseLegend: D=Delta, H=High, L=Low, HH=Critical High, LL=Critical Low , AA=Critical Alpha-Numeric, C=Corrected, A=Abnormal LOINC Test Result Flag Range Units Date 3040-3 27 11-82 U/L 05/10/2016 1Lipase 07:35 SerPl-cCnc Performing Lab Footnotes:[facility] [id number] - [address] [place], [place] [address]EDC Britt NG Order: HCG Qualatative UrineLegend: D=Delta, H=High, L=Low, HH=Critical High, LL=Critical Low, AA=Critical Alpha-Numeric, C=Corrected, A=Abnormal LOINC Test Result Flag Range Units Date 51408-7 Negative NEGATIVE 05/10/2016 1HCG 07:17 SerPl-[facility] Performing Lab Footnotes:[facility] - [id number] - [address] [place], [place] [address]PGC Britt NG Order: Urinalysis With Microscopic ExamLegend: D=Delta, H=High, L=Low, HH= Critical High, LL=Critical Low, AA=Critical Alpha-Numeric, C=Corrected, A= Abnormal LOINC Test Result Flag Range Units Date 5778-6 Color Ur Straw 6 07:17 18226-4 Clarity Hazy Ur 6 07:17 2966-0 Sp Gr 1.020 1.005-1.030 24h Ur 6 07:17 2756-5 pH Ur 7.0 5.0-7.0 6 07:17 37389-0 Negative NEGATIVE Leukocyte esterase 6 07:17 Ur-[facility] 45870-6 Nitrite Negative NEGATIVE Ur Ql Strip.auto 6 07:17 33923-6 Prot 30 mg/dL * NEGATIVE Tiss-mCnt 6 07:17 2349-9 Glucose Negative NEGATIVE Ur Ql 6 07:17 04507-2 MEK 80 mg/dL * NEGATIVE Ur-mCnc 6 07:17 1977-8 Bilirub Small * NEGATIVE Ur Ql 6 07:17 933-2 Bld Prod Trace-intact * NEGATIVE Typ BPU 6 07:17 25075-7 0.2 <=1.0 Urobilinogen Ur Ql 6 07:17 1WBC_UM 0-5 0-5 /HPF 6 07:17 5808-1 1RBC # 0-2 * 0-5 /HPF UrnS HPF 6 07:17 5787-7 1Epi 5-10 * 0-2 /HPF Cells #/area UrnS 6 07:17 HPF 69775-8 Many /HPF 1Bacteria UrnS Ql 6 07:17 Micro 89347-5 1Mucous Large Amount * NONE PRESENT /HPF Threads #/area 6 07:17 UrnS HPF 91318-1 1C trach Y UrnS Ql Cult 6 07:17 Performing Lab Footnotes:[facility] [id number] - [address] [place], [place] [address]BVU - SHANELLE NG Radiology Results Order: CTAPC CT Abd Pelvis W/ContrastExam Completion Date:05/10/2016 07:25INDICATION: periumbilical pain r/o appyCT Abd Pelvis W/Contrast: Axial CT images of the abdomen andpelvis wereobtained with IV contrast material. Contrast: 95 cc Optiray 320Compare: noneFindings: There is poorly defined mass effect at the root of the small bowelmesentery along the inferior and medial aspect of the uncinate process of thepancreas. This measures approximately 3.9 cm in maximum transverse dimension.This is radiographically indeterminate. This could be due either to aninflammatory process or to neoplasm. There is also an indeterminate area ofdecreased attenuation within the right anterolateral aspect of the liver. Afollow-up MR examination of the abdomen may be helpful in further evaluation.The gallbladder is negative. No bile duct or pancreatic duct dilatation. Thespleen and both kidneys are unremarkable. There is a 2.2 x 2.1 cm cyst in theleft ovary which is likely physiologic. Tiny fat-containing umbilical hernia.The remainder of the exam is negative. Specifically there is no CT evidence ofappendicitis. No bowel dilatation.Released By LETICIA HORN, MADISONate: 05/10/2016 08:47 Vital Signs Vitals Value Date Body Temperature 97.6 F 05/10/2016 Respiratory Rate 18 05/10/2016 O2% BldC Oximetry 97 05/10/2016 BP Systolic 171 mmHg 05/10/2016 BP Diastolic 75 mmHg 05/10/2016 Height 62 in 05/10/2016 Weight Measured 188 lbs 05/10/2016 BSA (Body Surface Area) 1.78832 05/10/2016 BMI (Body Mass Index) 34.5 05/10/2016 Plan of Care No data in the system Procedures No data in the system Encounters No data in the system Immunizations No data in the system Functional Status No data in the system Hospital Discharge Instructions No data in the system
--- OUTSIDE RECORDS SUMMARY | 2017-05-07 12:17 | External Medical Summary | Continuity of Care Document ---
:1975 Author Organization [facility] Care Team Providers Name Role Phone DAT MCDANIEL Admitting Physician Unavailable DAT MCDANIEL Attending Physician Unavailable Hospital Admission Diagnosis Code Admission Diagnosis Date [id number] Right upper quadrant pain Social History Element Code Description Smoking Start Date End Date Description Status Code System Smoking Status [id number] Never smoker SNOMED-CT Problems Code Code System Problem Name Start Date End Date Status 54823008 SNOMED-CT Cough 09/12/2015 Active Medications RxNorm Medication Dose Route Instructions Indications Start End Status Date Date 695573 3 ML 1.2 Subcutaneou subcutaneously Active liraglutide milligram s every day 6 MG/ML Pen Injector 58163 valsartan 160 Oral orally every Active milligram day 36235 zolpidem 12.5 Oral orally every Active milligram day at bedtime 102528 Amoxicillin 1 tablet Oral orally 2 times No 875 MG / per day Longer Clavulanate Active 125 MG Oral Tablet Allergies No Known Allergies Results Laboratory Results Order: CBC With Automated DifferentialLegend: D=Delta, H=High, L=Low, HH=Critical High, LL=Critical Low, AA=Critical Alpha-Numeric, C=Corrected, A=Abnormal LOINC Test Result Flag Range Units Date 6690-2 10.5 4.5-11.0 10^3/mm3 05/10/2016 1WBC # Bld 07:35 Auto 50013-9 4.51 4.00-5.20 10^6/mm3 05/10/2016 1Retics # 07:35 Auto 18502-6 13.8 12.0-16.0 g/dl 05/10/2016 1Hgb 07:35 BldV-mCnc [...] 10^3/mm3 05/10/2016 1Platelet # 07:35 Bld Auto 70398-9 9.3 7.4-10.4 05/10/2016 1PMV Bld 07:35 23711-1 72.2 40.0-74.0 % 05/10/2016 1Neutrophils 07:35 # CSF 20.4 14.0-46.0 % 05/10/2016 1LYMPH% 07:35 96142-4 6.7 4.0-13.0 % 05/10/2016 1CD43 Ag Tiss 07:35 Ql ImStn 711-2 0.5 0.0-4.0 % 05/10/2016 1Eosinophil # 07:35 Bld Auto 704-7 0.2 <=3.0 % 05/10/2016 1Basophils # 07:35 Bld Auto 751-8 7.6 1.8-7.8 05/10/2016 1Neutrophils 07:35 # Bld Auto 40155-2 2.1 0.7-4.5 05/10/2016 1Lymphocytes 07:35 # Bld 90033-0 0.7 0.1-1.0 05/10/2016 1CD43 Ag Tiss 07:35 Ql ImStn 711-2 0.05 <=4.00 05/10/2016 1Eosinophil # 07:35 Bld Auto 704-7 0.02 <=0.20 05/10/2016 1Basophils # 07:35 Bld Auto N 05/10/2016 2MANDIFF 07:35 38070-6 N 05/10/2016 2RBC Bld Auto 07:35 Performing Lab Footnotes:1[facility] [id number] - [address] [place], [place] [address]IKA - SHANELLE NG2[facility] - [id number] - [address] - Lawyer:, Shanelle Ng MD - SHANELLE NG Order: Comprehensive Metabolic PanelLegend: D=Delta, H=High, L=Low, HH= Critical High, LL=Critical Low, AA=Critical Alpha-Numeric, C=Corrected, A= Abnormal LOINC Test Result Flag Range Units Date 2345-7 113 H 70-105 mg/dl 05/10/2016 1Glucose 07:35 SerPl-mCnc 3094-0 10 7-25 mg/dl 05/10/2016 1BUN 07:35 SerPl-mCnc 2160-0 0.6 0.6-1.3 mg/dl 05/10/2016 1Creat 07:35 SerPl-mCnc 63550-6 17 13-39 05/10/2016 1Creat/Urea 07:35 nit SerPl 2951-2 136 135-145 mmol/L 05/10/2016 1Sodium 07:35 SerPl-sCnc 00806-0 3.0 L 3.5-5.1 mmol/L 05/10/2016 1Potassium 07:35 SerPl-mCnc 2075-0 101 98-107 mmol/l 05/10/2016 1Chloride 07:35 SerPl-sCnc 2028-9 25 21-31 mmol/l 05/10/2016 1CO2 07:35 SerPl-sCnc 06905-7 13 9-16 mmol/L 05/10/2016 1Anion Gap 07:35 SerPl-sCnc 2692-2 282 277-298 mOsm/kg 05/10/2016 1Osmolality 07:35 SerPl 64212-7 8.6 8.2-10.0 mg/dl 05/10/2016 1Calcium 07:35 SerPl-mCnc [...] 60-116 GFRunits 05/10/2016 1GFR 07:35 Performing Lab Footnotes:[facility] - [id number] - [address], [place] [address]NTFCHALO NG Order: LipaseLegend: D=Delta, H=High, L=Low, HH=Critical High, LL=Critical Low , AA=Critical Alpha-Numeric, C=Corrected, A=Abnormal LOINC Test Result Flag Range Units Date 3040-3 27 11-82 U/L 05/10/2016 1Lipase 07:35 SerPl-[facility] Performing Lab Footnotes:[facility] - [id number] - [address], [place] [address]OWO Britt NG Order: HCG Qualatative UrineLegend: D=Delta, H=High, L=Low, HH=Critical High, LL=Critical Low, AA=Critical Alpha-Numeric, C=Corrected, A=Abnormal LOINC Test Result Flag Range Units Date 32559-8 Negative NEGATIVE 05/10/2016 1H 07:17 [facility] Performing Lab Footnotes:[facility] - [id number] - [address], [place] [address]WAY Britt NG Order: Urinalysis With Microscopic ExamLegend: D=Delta, H=High, L=Low, HH= Critical High, LL=Critical Low, AA=Critical Alpha-Numeric, C=Corrected, A= Abnormal LOINC Test Result Flag Range Units Date 5778-6 Color Ur Straw 6 07:17 83207-6 Clarity Hazy Ur 6 07:17 2966-0 Sp Gr 1.020 1.005-1.030 24h Ur 6 07:17 2756-5 pH Ur 7.0 5.0-7.0 6 07:17 23887-5 Negative NEGATIVE Leukocyte esterase 6 07:17 Ur-aCnc 90179-0 Nitrite Negative NEGATIVE Ur Ql Strip.auto 6 07:17 81494-1 Prot 30 mg/dL * NEGATIVE Tiss-mCnt 6 07:17 2349-9 Glucose Negative NEGATIVE Ur Ql 6 07:17 71107-6 MEK 80 mg/dL * NEGATIVE Ur-mCnc 6 07:17 1977-8 Bilirub Small * NEGATIVE Ur Ql 6 07:17 933-2 Bld Prod Trace-intact * NEGATIVE Typ BPU 6 07:17 87308-9 0.2 <=1.0 Urobilinogen Ur Ql 6 07:17 1WBC_UM 0-5 0-5 /HPF 6 07:17 5808-1 1RBC # 0-2 * 0-5 /HPF UrnS HPF 6 07:17 5787-7 1Epi 5-10 * 0-2 /HPF Cells #/area UrnS 6 07:17 HPF 64926-1 Many /HPF 1Bacteria UrnS Ql 6 07:17 Micro 48152-2 1Mucous Large Amount * NONE PRESENT /HPF Threads #/area 6 07:17 UrnS HPF 00330-0 1C trach Y UrnS Ql Cult 6 07:17 Performing Lab Footnotes:1[facility] - [id number] - [address] [place] [address]LEGCHALO NG Microbiology Results w SusceptibilitiesOrder: Culture UrineCulture Observations:1Final: Three or more colony types observed, contamination probable; [id number].Performing Lab Footnotes:1[facility] - [id number] - [address] - SHANELLE NG Radiology Results Order: CTAPC [...] ofappendicitis. No bowel dilatation.Released By LETICIA HORN, MDDate: 05/10/2016 08:47 Vital Signs Vitals Value Date Body Temperature 97.6 F 05/10/2016 Respiratory Rate 18 05/10/2016 O2% BldC Oximetry 97 05/10/2016 BP Systolic 171 mmHg 05/10/2016 BP Diastolic 75 mmHg 05/10/2016 Height 62 in 05/10/2016 Weight Measured 188 lbs 05/10/2016 BSA (Body Surface Area) 1.27680 05/10/2016 BMI (Body Mass Index) 34.5 05/10/2016 Plan of Care No data in the system Procedures No data in the system Encounters Date Code Diagnosis Status (ICD10) - R1011 RIGHT UPPER QUADRANT PAIN Active Immunizations No data in the system Functional Status No data in the system Hospital Discharge Instructions No data in the system
--- OUTSIDE RECORDS SUMMARY | 2017-05-07 12:18 | External Medical Summary | Continuity of Care Document ---
:1975 Author Organization [facility] Care Team Providers Name Role Phone Hernandez SARABIA II ([facility]) Admitting Physician Hernandez SARABIA II ([facility]) Attending Physician Hospital Admission Diagnosis No data in the System Social History Element Code Description Smoking Start Date End Date Description Status Code System Smoking Status [id number] Never smoker SNOMED-CT Problems Code Code System Problem Name Start Date End Date Status 87653926 SNOMED-CT Cough 09/12/2015 Active Medications RxNorm Medication Dose Route Instructions Indications Start End Status Date Date 696134 3 ML 1.2 Subcutaneou subcutaneously Active liraglutide milligram s every day 6 MG/ML Pen Injector 69598 valsartan 160 Oral orally every Active milligram day 41984 zolpidem 12.5 Oral orally every Active milligram day at bedtime 952091 Amoxicillin 1 tablet Oral orally 2 times [...]
--- OUTSIDE RECORDS SUMMARY | 2017-05-07 12:18 | External Medical Summary | Continuity of Care Document ---
:1975 Author Organization [facility] Care Team Providers Name Role Phone Cristina PARRA Admitting Physician Unavailable Cristina PARRA Attending Physician Unavailable Hospital Admission Diagnosis No data in the System Social History Element Code Description Smoking Start Date End Date Description Status Code System Smoking Status 628566237 Never smoker SNOMED-CT Problems Code Code System Problem Name Start Date End Date Status 52912885 SNOMED-CT Cough 09/12/2015 Active Medications RxNorm Medication Dose Route Instructions Indications Start End Status Date Date 145959 3 ML 1.2 Subcutaneou subcutaneously Active liraglutide milligram s every day 6 MG/ML Pen Injector 480829 Amoxicillin 1 tablet Oral orally 2 times Active 875 MG / per day Clavulanate 125 MG Oral Tablet 83079 valsartan 160 Oral orally every Active milligram day 92875 zolpidem 12.5 Oral orally every Active milligram day at bedtime Allergies No Known Allergies Results No data in the system Vital Signs Vitals Value Date Body Temperature 98 F 09/12/2015 Respiratory Rate 20 09/12/2015 O2% BldC Oximetry 96 09/12/2015 BP Systolic 123 mmHg 09/12/2015 BP Diastolic 73 mmHg 09/12/2015 Height 62 in 09/12/2015 Weight Measured 192.02 lbs 09/12/2015 BSA (Body Surface Area) 1.59223 09/12/2015 BMI (Body Mass Index) 35.3 09/12/2015 Plan of Care No data in the system Procedures Code Code System Procedure Name Target Site Date of Procedure 58134887 SNOMED Grafting of 10/05/2013 skin and dermal-fat for breast augmentation Encounters No data in the system Immunizations No data in the system Functional Status No data in the system Hospital Discharge Instructions No data in the system
--- OUTSIDE RECORDS SUMMARY | 2017-05-07 12:18 | External Medical Summary | Continuity of Care Document ---
:1975 Author Organization [facility] Allergies Active Description Code Type Severity Reaction Onset Reported/ Identified Relationship Clinical to Patient Status Yes No Known NKA Misce Unknown N/A 02/16/2015 Allergies llane ous Aller gy Yes No Known 61284 Unknown N/A 09/12/2015 Drug 0 Allergies Medications Problems Date Dx Attending Type Code Diagnosis Diagnosed By Coded 10/15/2015 Cristina PARRA S 250.00 DIABETES MELLITUS WITHOUT MENTION OF COMPLICATION, TYPE II OR UNSPECIFIED TYPE, 10/15/2015 Cristina PARRA P 466.0 ACUTE BRONCHITIS 10/15/2015 Cristina PARRA A 786.2 COUGH 10/15/2015 Cristina PARRA S E11.9 TYPE 2 DIABETES MELLITUS WITHOUT COMPLICATIONS 10/15/2015 Cristina PARRA P J20.9 ACUTE BRONCHITIS, UNSPECIFIED 10/15/2015 Cristina PARRA A R05 COUGH 05/18/2016 DAT MCDANIEL P R10.11 RIGHT UPPER QUADRANT PAIN 05/24/2016 Hernandez SARABIA P 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 Type Provider Facility Loc./Unit Complaint No. Date/Time [id number] 02/16/2015 02/16/2015 CLS Outpatient Jr Addison SRP.URGENT [id number] 14:15:00 23:59:59 [facility]
--- OUTSIDE RECORDS SUMMARY | 2017-05-07 12:18 | External Medical Summary | Continuity of Care Document ---
:1975 Author Organization [facility] Support Name Relationship Address Phone LETICIA GARCIA Spouse [address] [place] [address] LETICIA GARCIA Spouse [address] [place] [address] Hospital Admission Diagnosis Code Admission Diagnosis Date ENCOUNTER FOR PREPROCEDURAL CARDIOVASCULAR EXAMINATION Social History Element Code Description Smoking Start Date End Date Description Status Code System Smoking Status [id number] Never smoker SNOMED-CT Problems Code Code System Problem Name Start Date End Date Status 61914443 SNOMED-CT Cough 09/12/2015 Active Medications RxNorm Medication Dose Route Instructions Indications Start End Status Date Date 431762 3 ML 1.2 Subcutaneou subcutaneously Active liraglutide milligram s every day 6 MG/ML Pen Injector 31995 valsartan 160 Oral orally every Active milligram day 23733 zolpidem 12.5 Oral orally every Active milligram day at bedtime 185588 Amoxicillin 1 tablet Oral orally 2 times No 875 MG / per day Longer Clavulanate Active 125 MG Oral Tablet Allergies No Known Allergies Results Laboratory Results Order: Bilirubin DirectLegend: D=Delta, H= High, L=Low, HH=Critical High, LL=Critical Low, AA=Critical Alpha-Numeric, C= Corrected, A=Abnormal LOINC Test Result Flag Range Units Date 1968-03 0.09 0.03-0.18 mg/dl 07/10/2016 1Bilirub 13:10 Direct [facility] Performing Lab Footnotes:[facility] [id number] - [address] [place] [address] - MONTOYA M NEWCOMB Order: Activated Partial Thromboplastin TimeLegend: D=Delta, H=High, L=Low, HH= Critical High, LL=Critical Low, AA=Critical Alpha-Numeric, C=Corrected, A= Abnormal LOINC Test Result Flag Range Units Date 25.5 24.0-35.0 Seconds 07/10/2016 1PTT 11:30 Performing Lab Footnotes:[address] [place] [address] - [id number] - [address] [place] [address], [place] [address] - [facility] Order: CBC With Automated DifferentialLegend: D=Delta, H=High, L=Low, HH= Critical High, LL=Critical Low, AA=Critical Alpha-Numeric, C=Corrected, A= Abnormal LOINC Test Result Flag Range Units Date 6690-2 7.7 4.5-11.0 10^3/mm3 07/10/2016 1WBC # Bld 11:30 Auto 75881-0 4.65 4.00-5.20 10^6/mm3 07/10/2016 1Retics # 11:30 Auto 42751-1 14.2 12.0-16.0 g/dl 07/10/2016 1Hgb 11:30 BldV-mCnc [...] 10^3/mm3 07/10/2016 1Platelet # 11:30 Bld Auto 47769-1 9.9 7.4-10.4 07/10/2016 1PMV Bld 11:30 84210-2 70.7 40.0-74.0 % 07/10/2016 1Neutrophils 11:30 # CSF 22.2 14.0-46.0 % 07/10/2016 1LYMPH% 11:30 77375-4 5.5 4.0-13.0 % 07/10/2016 1CD43 Ag Tiss 11:30 Ql ImStn 711-2 1.2 0.0-4.0 % 07/10/2016 1Eosinophil # 11:30 Bld Auto 704-7 0.4 <=3.0 % 07/10/2016 1Basophils # 11:30 Bld Auto 751-8 5.4 1.8-7.8 07/10/2016 1Neutrophils 11:30 # Bld Auto 45133-9 1.7 0.7-4.5 07/10/2016 1Lymphocytes 11:30 # Bld 97405-4 0.4 0.1-1.0 07/10/2016 1CD43 Ag Tiss 11:30 Ql ImStn 711-2 0.09 <=4.00 07/10/2016 1Eosinophil # 11:30 Bld Auto 704-7 0.03 <=0.20 07/10/2016 1Basophils # 11:30 Bld Auto N 07/10/2016 1MANDIFF 11:30 08046-3 N 07/10/2016 1RBC Bld Auto 11:30 Performing Lab Footnotes:1[facility] - [id number] - [address] [place], [place] [address] [place] [address] TREVOR Order: Comprehensive Metabolic PanelLegend: D=Delta, H=High, L=Low, HH= Critical High, LL=Critical Low, AA=Critical Alpha-Numeric, C=Corrected, A= Abnormal LOINC Test Result Flag Range Units Date 2345-7 89 70-105 mg/dl 07/10/2016 1Glucose 11:30 SerPl-mCnc 3094-0 1BUN 13 7-25 mg/dl 07/10/2016 SerPl-mCnc 11:30 2160-0 1Creat 0.8 0.6-1.3 mg/dl 07/10/2016 SerPl-mCnc 11:30 95878-3 16 13-39 07/10/2016 Creat/Urea nit 11:30 SerPl 2951-2 141 135-145 mmol/L 07/10/2016 1Sodium 11:30 SerPl-sCnc 88744-7 3.1 L 3.5-5.1 mmol/L 07/10/2016 1Potassium 11:30 SerPl-nc 5-0 106 98-107 mmol/l 07/10/2016 1Chloride 11:30 SerPl-sCnc 8-9 1CO2 23 21-31 mmol/l 07/10/2016 SerPl-sCnc 11:30 78210-2 1Anion 15 9-16 mmol/L 07/10/2016 Gap SerPl-sCnc 11:30 2692-2 292 277-298 mOsm/kg 07/10/2016 Osmolality SerPl 11:30 58861-6 9.4 8.2-10.0 mg/dl 07/10/2016 1Calcium 11:30 SerPl-mCnc 1742-6 1ALT 41 7-52 IU/L 07/10/2016 SerPl-cCnc 11:30 1920-8 1AST 27 13-39 IU/L 07/10/2016 SerPl-cCnc 11:30 1715-2 1ACP 44 34-104 U/L 07/10/2016 SerPl-cCnc 11:30 1975-2 0.6 0.3-1.0 mg/dl 07/10/2016 1Bilirub 11:30 [facility]2 1Prot 7.6 6.0-8.3 g/dL 07/10/2016 SerPl-mCnc 11:30 1751-7 4.3 3.5-5.7 g/dl 07/10/2016 1Albumin 11:30 [facility] 2336-6 3.3 H 2.3-3.2 g/dL 07/10/2016 Globulin 11:30 Ser-[facility] 1759-0 1.3 1.2-2.0 07/10/2016 Albumin/Glob 11:30 SerP 1GFR 92 60-116 GFRunits 07/10/2016 11:30 Performing Lab Footnotes:[address] [place] [address] - [id number] - [address] [place] [address] M JEFFERSON Order: MagnesiumLegend: D=Delta, H=High, L=Low, HH=Critical High, LL=Critical Low, AA=Critical Alpha-Numeric, C=Corrected, A=Abnormal LOINC Test Result Flag Range Units Date 1.9 1.9-2.7 mg/dL 07/10/2016 1Magnesium 11:30 Performing Lab Footnotes:[address] [place] [address] - [id number] - [address] [place] [address] M JEFFERSON Order: PhosphorusLegend: D=Delta, H=High, L=Low, HH=Critical High, LL=Critical Low, AA=Critical Alpha-Numeric, C=Corrected, A=Abnormal LOINC Test Result Flag Range Units Date 2567-6 2.5 1.9-4.5 mg/dL 07/10/2016 1Phospholipi 11:30 d P Ser-mCnc Performing Lab Footnotes:[address] [place] [address] - [id number] - [address] [place] [address] TREVORB Order: Protime With INRLegend: D=Delta, H=High, L=Low, HH=Critical High, LL= Critical Low, AA=Critical Alpha-Numeric, C=Corrected, A=Abnormal LOINC Test Result Flag Range Units Date 1PT 9.9 9.1-11.6 Seconds 07/10/2016 11:30 92391-2 1INR p 0.96 0.90-1.15 07/10/2016 heparin 11:30 adsorption PPP Performing Lab Footnotes:[address] [place] [address] - [id number] - [address] [place] [address] JE[place]ERSON Radiology Results Order: [id number] Chest x-ray 2 [...] Encounters Date Code Diagnosis Status (ICD10) - Q88343 ENCOUNTER PREPROCEDURAL CV EXAM Active Immunizations No data in the system Functional Status No data in the system Hospital Discharge Instructions No data in the system
--- OUTSIDE RECORDS SUMMARY | 2017-05-07 12:18 | External Medical Summary | Referral Summary ---
:1975 Author Organization [facility] Address [address] [place] [address] Care Team Providers Name Role Phone Carmen Hobbs Primary Care Physician Encounter [facility] [phone] Date(s): 07/12/16 - 11/06/16 [facility] [address] [place] [address] [place] Discharge Diagnosis: Pseudomembranous colitis Discharge Diagnosis: Acute generalized peritonitis Discharge Diagnosis: Severe Sepsis With Septic Shock Discharge Diagnosis: VAP (ventilator-associated pneumonia) Discharge Disposition: 62-Inpatient Rehab Facility Attending Physician: Ashley Luu MD Admitting Physician: Ashley Luu MD Vital Signs Most recent to oldest [Reference Range]: 1 Temperature Axillary [35.2-36.7 degC] 36.4 degC (11/06/16 11:00 AM) Temperature Skin [36-37 degC] 37.6 degC *HI* (07/12/16 5:05 PM) Temperature Rectal [36.3-37.8 degC] 37.3 degC (09/05/16 8:00 AM) Temperature Temporal Artery [36.3-37.8 degC] 36.5 degC (11/05/16 5:00 PM) Peripheral Pulse Rate [60-100 bpm] 88 bpm (11/03/16 9:16 PM) Heart Rate Monitored [60-100 bpm] 87 bpm (11/06/16 3:00 PM) Respiratory Rate [14-20 br/min] 12 br/min *LOW* (11/06/16 3:00 PM) Blood Pressure [90-140/60-90 mmHg] 107/66 mmHg (11/06/16 3:00 PM) Mean Arterial Pressure, Cuff 73 mmHg (11/06/16 3:00 PM) Systolic Blood Pressure Invasive [90-140 mmHg] 63 mmHg *LOW* (08/06/16 11:53 AM) Diastolic Blood Pressure Invasive [60-90 mmHg] 43 mmHg *LOW* (07/28/16 6:21 AM) Mean Arterial Pressure, Invasive 43 mmHg (07/28/16 5:00 AM) Pulse Rate [60-100 bpm] 83 bpm (11/03/16 9:20 PM) SpO2 100 % (11/06/16 3:00 PM) Remote Telemetry Ongoing (10/31/16 12:00 AM) Problem List Condition Effective Dates Status Health Status Informant Acute pain(Confirmed) Resolved Alteration in nutrition(Confirmed)1 Resolved At risk for infection(Confirmed)2 Resolved At risk for injury(Confirmed)3 Resolved At risk of pressure sore(Confirmed) Resolved 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 Diabetes(Confirmed) Resolved patient Hypertension(Confirmed) Resolved patient Impaired gas exchange(Confirmed)5 Resolved Impaired spontaneous Resolved ventilation(Confirmed)6 Arthritis(Confirmed) Resolved patient Cancer(Confirmed) Resolved patient Obesity(Confirmed) Resolved patient Pressure ulcer stage 2(Confirmed) Resolved Tissue perfusion Resolved alteration(Confirmed)7 Vancomycin resistant Resolved enterococcus(Confirmed)8 1Problem added automatically by system based on initiation of Alteration in Nutrition Plan of [id number] added automatically by system based on initiation of At Risk for Infection in Nutrition Planof [id number] added automatically by system based on initiation of Risk for Injury Plan of Care4@ ORGANISM:36 in Drainage from Abdomen collected 09/30/16 9:46:00 [id number] added automatically by system based on initiation of Impaired Gas Exchange Plan of [id number] added automatically by system based on initiation of Impaired Spontaneous Ventilation Plan of [id number] added automatically by system based on initiation of Tissue Perfusion Cerebral Plan of Care8@ORGANISM:36 in Drainage from Abdomen collected 09/30/16 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[employer] Allergies, Adverse Reactions, Alerts Substance Reaction Severity Status beta-lactam antibiotics Rash, drug Mild Active Oranges1 Severe Active 1"throat swelling" Medications acetaminophen 650 mg rectal suppository 650 mg 1 supp, Rectal, q4hr, Fever, 0 Refill(s) Start Date: 11/06/16 Status: Orderedalbuterol 5 mg/mL (0.5%) inhalation solution 2.5 mg 0.5 mL, NEB, TID, 0 Refill(s) Start Date: 11/06/16 Status: Orderedalbuterol 5 mg/mL (0.5%) inhalation solution 2.5 mg 0.5 mL, NEB, q2hr, Other (See Comment), 0 Refill(s) Start Date: 11/06/16 Status: Orderedamiodarone 200 mg oral tablet 200 mg 1 tabs, Dobhoff Tube, BID, 0 Refill(s) Start Date: 11/06/16 Status: OrderedAtivan 0.5 mg oral tablet 0.5 mg 1 tabs, Oral, TID, as needed for anxiety, 0 Refill(s) Start Date: 07/11/16 Status: OrderedBenadryl 25 mg 0.5 mL, IV Push, q4hr, Pruritus/Itching, 0 Refill(s) Start Date: 11/06/16 Status: OrderedBenadryl Extra Strength 2%-0.1% topical cream 1 skyler, Topical, QID, Pruritus/Itching, 0 Refill(s) Start Date: 11/06/16 Status: Orderedcalamine topical lotion Topical, q6hr, Rash, 0 Refill(s) Start Date: 11/06/16 Status: Orderedhaloperidol 5 mg/mL injectable solution 5 mg 1 mL, IV Push, q4hr, Agitation, 0 Refill(s) Start Date: 11/06/16 Status: Orderedheparin 5000 units/mL injectable solution 5,000 units 1 mL, SubCutaneous, q8hr (scheduled), 0 Refill(s) Start Date: 11/06/16 Status: OrderedHeparin Lock Flush 10 units/mL intravenous solution 10 units 1 mL, IV Push, q3min, Other (See Comment), 0 Refill(s) Start Date: 11/06/16 Status: OrderedHeparin Lock Flush 10 units/mL intravenous solution 10 units 1 mL, IV Push, BID, 0 Refill(s) Start Date: 11/06/16 Status: OrderedHeparin Lock Flush 10 units/mL intravenous solution 10 units 1 mL, IV Push, BID, 0 Refill(s) Start Date: 11/06/16 Status: Orderedhydrocortisone 1% topical cream 1 skyler, Topical, QID, Pruritus/Itching, 0 Refill(s) Start Date: 11/06/16 Status: OrderedHYDROmorphone 1 mg/mL injectable solution 1 mg 1 mL, IV Push, q2hr, Pain Severe (7-10), 0 Refill(s) Start Date: 11/06/16 Status: Orderedinsulin aspart Sliding Scale Low, SubCutaneous, As Indicated, Hyperglycemia/High Blood Sugar, 0 Refill(s) Start Date: 11/06/16 Status: Orderedipratropium 500 mcg/2.5 mL inhalation solution 0.5 mg 2.5 mL, NEB, q2hr, Other (See Comment), 0 Refill(s) Start Date: 11/06/16 Status: Orderedipratropium 500 mcg/2.5 mL inhalation solution 0.5 mg 2.5 mL, NEB, TID, 0 Refill(s) Start Date: 11/06/16 Status: Orderedmethadone 10 mg/5 mL oral solution 30 mg, Dobhoff Tube, q6hr, 0 Refill(s) Start Date: 11/06/16 Status: Orderedmiconazole 2% topical powder 1 skyler, Topical, BID, 0 Refill(s) Start Date: 11/06/16 Status: OrderedNormal Saline Flush 10 mL, IV Push, BID, 0 Refill(s) Start Date: 11/06/16 Status: OrderedNormal Saline Flush 2 mL, IV Push, q3min, Other (See Comment), 0 Refill(s) Start Date: 11/06/16 Status: Orderedocular lubricant ophthalmic solution Eye-Both, q4hr, Dry Eyes, 0 Refill(s) Start Date: 11/06/16 Status: OrderedProtonix IV 40 mg 10 mL, IV Push, BID, 0 Refill(s) Start Date: 11/06/16 Status: Orderedsaliva substitutes oral spray Oral, QID, Other (See Comment), 0 Refill(s) Start Date: 11/06/16 Status: Orderedscopolamine 1.5 mg transdermal film, extended release 1.5 mg 1 patches, TransDermal, q3day, Nausea or Vomiting, 0 Refill(s) Start Date: 11/06/16 Status: OrderedSEROquel 50 mg oral tablet 50 mg 1 tabs, NG-Tube, Bedtime (once a day), 0 Refill(s) Start Date: 11/06/16 Status: OrderedTriple Antibiotic 1 skyler, Topical, BID, 0 Refill(s) Start Date: 11/06/16 Status: OrderedZofran 2 mg/mL injectable solution 4 mg 2 mL, IV Push, q6hr, 0 Refill(s) Start Date: 11/06/16 Status: Ordered Results Blood Gases Most recent to oldest [Reference Range]: 1 pH [7.35-7.45] 7.44 (08/24/16 6:08 AM) PCO2 Arterial POC [35-45 mmHg] 36 mmHg (07/14/16 9:12 AM) pCO2 Art [35-45 mmHg] 28 mmHg *LOW* (08/24/16 6:08 AM) CO2 Totl Art [23-27 mEq/L] 21 mEq/L *LOW* (07/14/16 9:12 AM) Bicarbonate [22-26 mEq/L] 19 mEq/L *LOW* (08/24/16 6:08 AM) Bicarbonate Arterial POC [22-26 mEq/L] 20 mEq/L *LOW* (07/14/16 9:12 AM) Base Excess Arterial POC [0-2] -6 *LOW* (07/14/16 9:12 AM) Base Excess Art [0-2] -4 *LOW* (08/24/16 6:08 AM) O2 Sat Art [90.0-97.0 %] 96.3 % (08/24/16 6:08 AM) pO2 Art [80-100 mmHg] 82 mmHg (08/24/16 6:08 AM) O2 Saturation Arterial POC [90.0-97.0 %] 60.0 % *LOW* (07/14/16 9:12 AM) pH Arterial POC [7.35-7.45] 7.34 *LOW* (07/14/16 9:12 AM) PO2 Arterial POC [80-100 mmHg] 33 mmHg *LLOW* (07/14/16 9:12 AM) LPM Art 10.0 L/min (07/15/16 2:05 PM) O2 Panel VC + (08/24/16 6:08 AM) Vent Mode AC (08/24/16 6:08 AM) Set Vt 400 mL (08/24/16 6:08 AM) Total PIP 20 (08/13/16 4:58 AM) Insp. Pressure 15 (08/14/16 8:16 PM) Set Rate 16 br/min (08/24/16 6:08 AM) FiO2 Art [0-100] 30 (08/24/16 6:08 AM) PEEP 8.0 (08/24/16 6:08 AM) EPAP 5 (08/14/16 8:16 PM) Inspiratory Time Art 0.90 seconds (08/24/16 6:08 AM) Pressure Support Art 0 (08/06/16 4:44 AM) High Peep 16 cm (08/07/16 3:48 AM) Low Peep 0 cm (08/06/16 4:44 AM) Time Low 0.6 seconds (08/07/16 3:48 AM) Total Rate 18 br/min (08/21/16 3:25 AM) Spon Vt 506 mL (08/21/16 3:25 AM) Spec Site Radial-L (08/24/16 6:08 AM) Venous pH [7.30-7.40] 7.36 (07/17/16 4:41 AM) Venous PCO2 [45-55 mmHg] 40 mmHg *LOW* (07/17/16 4:41 AM) Venous PO2 [15-35 mmHg] 42 mmHg *HI* (07/17/16 4:41 AM) HCO3 [place] [24-28 mEq/L] 22 mEq/L *LOW* (07/17/16 4:41 AM) Base Excess [place] [0-4] -3 *LOW* (07/17/16 4:41 AM) O2 Sat [place] 74.5 % (07/17/16 4:41 AM) O2 Panel [place] VC + (07/17/16 4:41 AM) Vent Mode [place] AC (07/17/16 4:41 AM) Set Vt [place] 400 mL (07/17/16 4:41 AM) Set Rate [place] 20 br/min (07/17/16 4:41 AM) FiO2 [place] [0-100] 45 (07/17/16 4:41 AM) PEEP [place] 10.0 (07/17/16 4:41 AM) Inspiratory Time [place] 0.90 (07/17/16 4:41 AM) Spec Site [place] A-Line (07/17/16 4:41 AM) Hematology Most recent to oldest [Reference Range]: 1 WBC [4.8-10.8 10*3/uL] 9.1 10*3/uL (11/06/16 3:47 AM) RBC [4.00-5.20] 2.92 *LOW* (11/06/16 3:47 AM) Hgb [12.0-16.0 gm/dL] 8.8 gm/dL *LOW* (11/06/16 3:47 AM) Hct [37.0-47.0 %] 28.2 % *LOW* (11/06/16 3:47 AM) MCV [82.0-99.0 fL] 96.6 fL (11/06/16 3:47 AM) MCH [27.0-32.0 pg] 30.1 pg (11/06/16 3:47 AM) MCHC [32.0-36.0 gm/dL] 31.2 gm/dL *LOW* (11/06/16 3:47 AM) RDW [11.5-14.5 %] 18.7 % *HI* (11/06/16 3:47 AM) Platelet [150-400 10*3/uL] 403 10*3/uL *HI* (11/06/16 3:47 AM) MPV [9.4-12.4 fL] 9.3 fL *LOW* (11/06/16 3:47 AM) Immature Granulocytes [0.0-1.0 %] 0.3 % (11/06/16 3:47 AM) Neutrophils [51-75 %] 65 % (11/06/16 3:47 AM) Band Man [0-8 %] 12 % *HI* (09/28/16 4:42 AM) [place] Man [0-1 %] 2 % *HI* (09/28/16 4:42 AM) Myelo Man [-1-0 %] 3 % *HI* (09/28/16 4:42 AM) Lymphocytes [20-46 %] 23 % (11/06/16 3:47 AM) Abn Lymph Man 1 % (09/23/16 3:32 AM) Monocytes [4-11 %] 8 % (11/06/16 3:47 AM) Eosinophils [0-4 %] 3 % (11/06/16 3:47 AM) Basophils [0-2 %] 0 % (11/06/16 3:47 AM) Neutro Absolute [1.90-7.00] 5.93 (11/06/16 3:47 AM) Lymph Absolute [0.80-3.30] 2.12 (11/06/16 3:47 AM) [place] Absolute [0.30-1.00] 0.76 (11/06/16 3:47 AM) Eos Absolute [0.00-0.50] 0.25 (11/06/16 3:47 AM) Baso Absolute [0.00-0.20] 0.02 (11/06/16 3:47 AM) Toxic Gran Occasional *ABN* (09/13/16 3:54 AM) Dohle Bodies Occasional *ABN* (09/09/16 3:40 AM) Vacuoles Present *ABN* (08/17/16 4:27 AM) Giant Platelets Occasional *ABN* (08/17/16 4:27 AM) Hypochrom Occasional *ABN* (08/07/16 3:32 AM) Polychrom Occasional *ABN* (09/28/16 4:42 AM) Ovalocytes Occasional *ABN* (08/18/16 3:32 AM) [place] Cell Occasional *ABN* (07/19/16 3:43 AM) Stippled RBC Occasional *ABN* (08/07/16 3:32 AM) Nucleated RBC Automated [0 /100 WBC] 0.0 /100 WBC (11/06/16 3:47 AM) Differential Reviewed (09/28/16 4:42 AM) Coagulation Most recent to oldest [Reference Range]: 1 INR [0.9-1.2] 1.1 (11/02/16 3:53 AM) PTT [25.0-35.0 seconds] 36.1 seconds *HI* (07/16/16 8:35 AM) Heparin Induced Antibody [Negative] Negative (08/10/16 6:42 AM) Heparin Induced OD 0.397 1 (08/10/16 6:42 AM) 1Result Comment: % of Patients with Serotonin Optical Density Reading release confirmed HIT <0.40 0.1% 0.40 - <1.00 4.7% 1.00 - <1.40 29.6% 1.40 - <2.0 57.7% > or=2.00 91.6% A weak positive test result (0.40 - <1.00) in most patients is strong evidence against the diagnosis of HIT.Chemistry Most recent to oldest [Reference Range]: 1 Sodium Lvl [136-144 mEq/L] 133 mEq/L *LOW* (11/06/16 3:47 AM) Potassium Lvl [3.6-5.1 mEq/L] 3.9 mEq/L (11/06/16 3:47 AM) Chloride [99-109 mEq/L] 108 mEq/L (11/06/16 3:47 AM) CO2 [22-32 mEq/L] 19 mEq/L *LOW* (11/06/16 3:47 AM) AGAP [3-20] 6 (11/06/16 3:47 AM) BUN [4-20 mg/dL] 62 mg/dL *HI* (11/06/16 3:47 AM) Glucose Lvl [70-100 mg/dL] 86 mg/dL (11/06/16 3:47 AM) Creatinine Lvl [0.44-1.03 mg/dL] 1.09 mg/dL *HI* (11/06/16 3:47 AM) eGFR [>60] 55 1 *ABN* (11/06/16 3:47 AM) Calcium Lvl [8.6-10.0 mg/dL] 9.1 mg/dL (11/06/16 3:47 AM) Albumin Lvl [3.5-4.8 gm/dL] 1.3 gm/dL *LOW* (11/06/16 3:47 AM) Total Protein [6.1-7.9 gm/dL] 4.8 gm/dL *LOW* (11/06/16 3:47 AM) Globulin [1.9-4.3 gm/dL] 3.8 gm/dL (11/02/16 3:53 AM) ALT [14-54 U/L] 22 U/L (11/06/16 3:47 AM) AST [15-41 U/L] 30 U/L (11/06/16 3:47 AM) Alk Phos [26-104 U/L] 136 U/L *HI* (11/06/16 3:47 AM) Bili Total [0.2-1.2 mg/dL] 0.3 mg/dL 2 (11/06/16 3:47 AM) Bili Direct [0.0-0.2 mg/dL] 0.0 mg/dL (11/06/16 3:47 AM) Bili Indirect [0.0-1.0 mg/dL] 0.3 mg/dL (11/06/16 3:47 AM) Magnesium Lvl [1.8-2.5 mg/dL] 1.9 mg/dL (11/06/16 3:47 AM) Uric Acid [2.6-8.0 mg/dL] 4.5 mg/dL (07/16/16 8:35 AM) Phosphorus [2.4-4.7 mg/dL] 3.2 mg/dL 3 (11/06/16 3:47 AM) Calcium Ionized [1.19-1.41 mmol/L] 1.50 mmol/L *HI* (11/06/16 3:47 AM) Total CK [38-234 U/L] 49 U/L (10/10/16 3:21 AM) BNP [0-99 pg/mL] 88 pg/mL (07/16/16 8:35 AM) Troponin [<0.06 ng/mL] <0.05 ng/mL (10/10/16 5:15 PM) Lactic Acid Lvl [0.5-2.2 mEq/L] 2.1 mEq/L (08/16/16 10:02 AM) Prealbumin [18-38 mg/dL] 17 mg/dL *LOW* (10/30/16 4:22 AM) 25-Hydroxy D2 <7 ng/mL (08/17/16 2:12 PM) 25-Hydroxy D3 <10 ng/mL (08/17/16 2:12 PM) 25-Hydroxy D Total [30-74 ng/mL] <17 ng/mL 4 *LOW* (08/17/16 2:12 PM) Cortisol PM [2-9 mcg/dL] 44 mcg/dL *HI* (07/15/16 4:07 PM) Screen, Urine NPT Negative (07/12/16 6:57 AM) Sodium Arterial NPT [136-144 mEq/L] 135 mEq/L *LOW* (07/14/16 9:12 AM) Potassium Arterial NPT [3.6-5.1 mEq/L] 4.6 mEq/L 5 (07/14/16 9:12 AM) Calcium Ionized Arterial NPT [1.19-1.41 mmol/L] 0.93 mmol/L *LOW* (07/14/16 9:12 AM) HCT Arterial NPT 27.0 % (07/14/16 9:12 AM) HGB Arterial NPT 9.2 gm/dL (07/14/16 9:12 AM) Arterial Glucose NPT [70-100 mg/dL] 126 mg/dL *HI* (07/14/16 9:12 AM) Blood Glucose, Capillary [70-100 mg/dL] 92 mg/dL (11/04/16 10:26 PM) Trig [0-150 mg/dL] 193 mg/dL *HI* (11/06/16 3:47 AM) Cortisol Free 0.49 mcg/dL 6 (07/14/16 4:51 PM) TSH with Reflex Free T4 [0.35-5.50] 2.14 (07/14/16 4:52 PM) Procalcitonin [0.00-0.09 ng/mL] 0.22 ng/mL 7 *HI* (11/01/16 3:33 AM) 1Result Comment: Multiply eGFR results by 1.21 for race.2Result Comment: Naproxen, specifically the metabolite O-desmethylnaproxen, may cause spurious elevation in Total Bilirubin levels.3Result Comment: High dosages of liposomal Amphotericin B (AmBisome) therapy or other drug preparations that use a liposomal envelope to facilitate drug delivery may cause falsely elevated results for phosphorus.4Result Comment: The desirable level of 25-Hydroxy Vitamin D Total(D2 + D3) is 30-74 ng/mL. A level consistently >200 is potentially toxic.5Result Comment: This test was performed on a whole blood specimen. The presence or absence of hemolysis cannot be assessed. Hemolysis can falsely elevate potassium levels. Normals are for venous specimens only.6Result Comment: Adult Reference Ranges for Cortisol, Free, LC/MS/MS: 8:00 - 10:00 AM 0.07-0.93 mcg/dL 4:00 - 6:00 PM 0.04-0.45 mcg/dL 10:00 - 11:00 PM 0.04-0.35 mcg/dL This test was developed and its analytical performance characteristics have been determined by [facility]. It has not been cleared or approved by FDA. This assay has been validated pursuant to the CLIA regulations and is used for clinical purposes. Test Performed by: [facility] [place] [address] [place] [id number] Comment: Normal: <0.1 ng/mL ( infants >72 hrs - adults) Suspected Lower Respiratory Tract Infection 0.10-0.25 ng/mL=Low likelihood for bacterial infection; Antibiotics discouraged. >0.25 ng/mL=Increased likelihood for bacterial infection; Antibiotics encouraged. Suspected Sepsis: Strongly consider initiating antibiotics in all unstable patients. 0.10-0.50 ng/mL=Low likelihood for sepsis; Antibiotics discouraged. >0.50 ng/mL=Increased likelihood for sepsis; Antibiotics encouraged. Decisions on antibiotic use should not be based solely on procalcitonin levels. If antibiotics are administered, repeat procalcitonin testing should be obtained every 2-3 days to consider early antibiotic cessation. PCT is a dynamic biomarker and most useful when trends are analyzed over time in accompaniment with other clinical data. Interpretation should be based upon clinical context and algorithms.Therapeutic Drug Monitoring Most recent to oldest [Reference Range]: 1 Vancomycin Lvl [10.0-40.0 ug/mL] 17.5 ug/mL (09/12/16 3:57 AM) Vancomycin Tr [10.0-20.0 ug/mL] 24.1 ug/mL 1 *HI* (09/08/16 4:11 PM) 1Result Comment: Trough vancomycin concentrations of 15-20 mcg/mL are recommended for complicated infections such as bacteremia, osteomyelitis, endocarditis, meningitis, and hospital acquired pneumonia.Urinalysis Most recent to oldest [Reference Range]: 1 UA Color Yellow (10/09/16 11:15 AM) UA Appear Clear (10/09/16 11:15 AM) UA pH [5.0-8.0] 5.0 (10/09/16 11:15 AM) UA Leuk Est [Negative] Negative (10/09/16 11:15 AM) UA Nitrite [Negative] Negative (10/09/16 11:15 AM) UA Protein [Negative] Trace *ABN* (10/09/16 11:15 AM) UA Glucose [Negative] Negative (10/09/16 11:15 AM) UA Ketones [Negative] Negative (10/09/16 11:15 AM) UA Urobilinogen [<1.0 mg/dL] 0.2 mg/dL (10/09/16 11:15 AM) UA Bili [Negative] Negative (10/09/16 11:15 AM) UA Blood [Negative] Pos 2+ *ABN* (10/09/16 11:15 AM) UA Spec Grav [1.003-1.030] 1.015 (10/09/16 11:15 AM) Type [place] (10/09/16 11:15 AM) UA WBC [0-4] 0-2 (10/09/16 11:15 AM) UA RBC [0-2] 2-5 (10/09/16 11:15 AM) Epithelial Cells 0-2 (10/09/16 11:15 AM) UA Bacteria Occasional *ABN* (10/09/16 11:15 AM) Crystals Ca Ox (10/09/16 11:15 AM) UA Hyal Cast [0-3] 1-3 (10/09/16 11:15 AM) UA Gran Cast 7-12 *ABN* (09/16/16 4:40 PM) UA Mucous Present (09/16/16 4:40 PM) Blood Bank Results Most recent to oldest [Reference Range]: 1 ABO/Rh A POS (10/26/16 9:06 AM) Antibody Screen Tube NEG (10/26/16 9:06 AM) Microbiology Reports (Most Recent Ten) TEST:Blood Culture1 STATUS:Auth (Verified) BODY SITE: SOURCE:Blood COLLECTED DATE/TIME:10/22/16 10:27 AMBlood CultureNo growth after 5 days of incubation.TEST:Blood Culture2 STATUS:Auth (Verified) BODY SITE: SOURCE:Blood COLLECTED DATE/TIME:10/22/16 10:23 AMBlood CultureNo growth after 5 days of incubation.TEST:Fungal Blood Culture STATUS:Order in Progress BODY SITE: SOURCE:Blood COLLECTED DATE/TIME:10/22/16 9:05 AMFungal Blood CultureCulture in progress No growth after 1 week of incubation.TEST:Sputum Culture and Smear STATUS:Auth (Verified) BODY SITE: SOURCE:Sputum COLLECTED DATE/TIME:10/09/16 5:10 PMSputum Culture and SmearNormal radha isolated, small amount (including scant amount of yeast) ORGANISM:Klebsiella oxytocaTEST:Blood Culture3 STATUS:Auth (Verified) BODY SITE: SOURCE:Blood COLLECTED DATE/TIME:10/09/16 9:49 AMBlood CultureNo growth after 5 days of incubation.TEST:Blood Culture4 STATUS:Auth (Verified) BODY SITE: SOURCE:Blood COLLECTED DATE/TIME:10/09/16 9:49 AMBlood CultureNo growth after 5 days of incubation.TEST:Blood Culture5 STATUS:Auth (Verified) BODY SITE: SOURCE:Blood COLLECTED DATE/TIME:10/01/16 9:31 AMBlood CultureNo growth after 5 days of incubation.TEST:Blood Culture6 STATUS:Auth (Verified) BODY SITE: SOURCE:Blood COLLECTED DATE/TIME:10/01/16 9:24 AMBlood CultureNo growth after 5 days of incubation.TEST:Quant. Ventilator Associated Cult/Smear STATUS:Auth (Verified) BODY SITE: SOURCE:Mini - BAL COLLECTED DATE/TIME:10/01/16 6:34 AMVentilator Associated Culture, Quant.No normal respiratory radha isolated ORGANISM:Moraxella catarrhalisORGANISM:Klebsiella oxytocaTEST:Wound Culture and Smear STATUS:Auth (Verified) BODY SITE:Abdomen SOURCE:Drainage COLLECTED DATE/TIME:09/30/16 9:55 AMWound Culture and SmearKlebsiella oxytoca moderate amount Proteus mirabilis moderate amount Enterococcus faecium - Vancomycin Resistant moderate amount ORGANISM:Klebsiella oxytocaORGANISM:Proteus mirabilisORGANISM:Vancomycin- Resistant Enterococcus faeciumINTERPRETIVE DATA1Volume of blood: 15 to 20 [id number] of blood: 15 to 20 sa6Vhgafzqsk bottle ONLY [id number] bottle ONLY [id number] bottle ONLY [id number] bottle ONLY received Immunizations No data available for this section Procedures Procedure Date Related Diagnosis Body Site Insertion of peripherally inserted central 10/29/16 venous catheter (PICC), without subcutaneous port or pump; age 5 years or older.. Esophagogastroduodenoscopy with Peg Placement1 10/26/16 Naso- or bryanna-gastric tube placement, requiring 10/26/16 physician's skill and fluoroscopic guidance (includes fluoroscopy, image documentation and report) Injection of sinus tract; diagnostic (sinogram) 10/23/16 Naso- or bryanna-gastric tube placement, requiring 10/17/16 physician's skill and fluoroscopic guidance (includes fluoroscopy, image documentation and report) Cholangiopancreatography Retrograde Endoscopic 10/16/16 with Stent Placement2 Insertion of peripherally inserted central 10/16/16 venous catheter (PICC), without subcutaneous port or pump; age 5 years or older.. Insertion of peripherally inserted central 10/10/16 venous catheter (PICC), without subcutaneous port or pump; age 5 years or older.. Declotting by thrombolytic agent of implanted 10/09/16 vascular access device or catheter Laparotomy Exploratory3 09/26/16 Laparotomy Exploratory4 09/15/16 Tracheostomy5 08/26/16 Arterial puncture, withdrawal of blood for 08/24/16 diagnosis Arterial puncture, withdrawal of blood for 08/21/16 diagnosis Arterial puncture, withdrawal of blood for 08/20/16 diagnosis Arterial puncture, withdrawal of blood for 08/19/16 diagnosis Arterial puncture, withdrawal of blood for 08/18/16 diagnosis Arterial puncture, withdrawal of blood for 08/17/16 diagnosis Arterial puncture, withdrawal of blood for 08/16/16 diagnosis Bronchoscopy Lavage6 08/16/16 Arterial puncture, withdrawal of blood for 08/15/16 diagnosis Arterial puncture, withdrawal of blood for 08/14/16 diagnosis Arterial puncture, withdrawal of blood for 08/14/16 diagnosis Arterial puncture, withdrawal of blood for 08/14/16 diagnosis Arterial puncture, withdrawal of blood for 08/13/16 diagnosis Arterial puncture, withdrawal of blood for 08/12/16 diagnosis Insertion of peripherally inserted central 08/12/16 venous catheter (PICC), without subcutaneous port or pump; age 5 years or older.. Arterial puncture, withdrawal of blood for 08/11/16 diagnosis Arterial puncture, withdrawal of blood for 08/10/16 diagnosis Arterial puncture, withdrawal of blood for 08/09/16 diagnosis Arterial puncture, withdrawal of blood for 08/08/16 diagnosis Arterial puncture, withdrawal of blood for 08/07/16 diagnosis Naso- or bryanna-gastric tube placement, requiring 08/07/16 physician's skill and fluoroscopic guidance (includes fluoroscopy, image documentation and report) Arterial puncture, withdrawal of blood for 08/06/16 diagnosis Arterial puncture, withdrawal of blood for 08/05/16 diagnosis Arterial puncture, withdrawal of blood for 08/04/16 diagnosis Arterial puncture, withdrawal of blood for 08/03/16 diagnosis Arterial puncture, withdrawal of blood for 08/02/16 diagnosis Arterial puncture, withdrawal of blood for 08/01/16 diagnosis Arterial puncture, withdrawal of blood for 07/31/16 diagnosis Colonoscopy Biopsy7 07/31/16 Insertion of peripherally inserted central 07/31/16 venous catheter (PICC), without subcutaneous port or pump; age 5 years or older.. Arterial puncture, withdrawal of blood for 07/30/16 diagnosis Arterial puncture, withdrawal of blood for 07/30/16 diagnosis Arterial puncture, withdrawal of blood for 07/29/16 diagnosis Arterial puncture, withdrawal of blood for 07/29/16 diagnosis Bronchoscopy - SN8 07/28/16 Arterial puncture, withdrawal of blood for 07/26/16 diagnosis Declotting by thrombolytic agent of implanted 07/26/16 vascular access device or catheter Bronchoscopy - SN9 07/25/16 Bronchoscopy - SN10 07/24/16 Laparotomy [id number] 07/18/16 Arterial puncture, withdrawal of blood for 07/16/16 diagnosis Laparotomy [id number] 07/16/16 Arterial puncture, withdrawal of blood for 07/15/16 diagnosis Esophagogastroduodenoscopy - SN13 07/14/16 Insertion of peripherally inserted central 07/14/16 venous catheter (PICC), without subcutaneous port or pump; age 5 years or older.. Resection Bowel14 07/14/16 Sigmoidoscopy [id number] 07/14/16 Resection Bowel Laparoscopic (Right)16 07/12/16 Resection Liver17 07/12/16 Abdominoplasty Breast enlargement Cholecystectomy 1auto-populated from documented surgical [id number]-wonhivpyi from documented surgical olql2itcs-lcqfaxnsm from documented surgical yjxz4gukg-bmftweseg from documented surgical dcci9igwq-gnxqfnzws from documented surgical aivo4xdoq- populated from documented surgical dkbp7nkir-nzktvuxpi from documented surgical psxg6kjwo-cwvjacurm from documented surgical oqnl1ireh-nsdnsqaxe from documented surgical udlz09cwyx-rijwjunhf from documented surgical pgvq31gjhb- populated from documented surgical lssi39asxi-erdcycidc from documented surgical pijd40vdyv-hzyujovyx from documented surgical hjbc88hlaa-xvjlfewwu from documented surgical autt32kdhx-qdduhrtut from documented surgical gydq32hcjq-yhidhccue from documented surgical mlgf40xtcx-awpzmikil from documented surgical case Social History Social History Type Response Smoking Status Never smoker Assessment and Plan No data available for this section
--- OUTSIDE RECORDS SUMMARY | 2017-05-07 12:18 | External Medical Summary | Continuity of Care Document ---
:1975 Author Organization [facility] Care Team Providers Name Role Phone Cristina PARRA Admitting Physician Unavailable Cristina PARRA Attending Physician Unavailable Hospital Admission Diagnosis Code Admission Diagnosis Date 63085189 Cough Social History Element Code Description Smoking Start Date End Date Description Status Code System Smoking Status [id number] Never smoker SNOMED-CT Problems Code Code System Problem Name Start Date End Date Status 51382161 SNOMED-CT Cough 09/12/2015 Active Medications RxNorm Medication Dose Route Instructions Indications Start End Status Date Date 214279 3 ML 1.2 Subcutaneou subcutaneously Active liraglutide milligram s every day 6 MG/ML Pen Injector 803359 Amoxicillin 1 tablet Oral orally 2 times Active 875 MG / per day Clavulanate 125 MG Oral Tablet 94728 valsartan 160 Oral orally every Active milligram day 23304 zolpidem 12.5 Oral orally every Active milligram day at bedtime Allergies No Known Allergies Results No data in the system Vital Signs Vitals Value Date Body Temperature 98 F 09/12/2015 Respiratory Rate 20 09/12/2015 O2% BldC Oximetry 96 09/12/2015 BP Systolic 123 mmHg 09/12/2015 BP Diastolic 73 mmHg 09/12/2015 Height 62 in 09/12/2015 Weight Measured 192.02 lbs 09/12/2015 BSA (Body Surface Area) 1.06663 09/12/2015 BMI (Body Mass Index) 35.3 09/12/2015 Plan of Care No data in the system Procedures Code Code System Procedure Name Target Site Date of Procedure 22528652 SNOMED Grafting of 10/05/2013 skin and dermal-fat for breast augmentation Encounters Date Code Diagnosis Status (ICD10) - J209 ACUTE BRONCHITIS UNSPECIFIED Active Immunizations No data in the system Functional Status No data in the system Hospital Discharge Instructions No data in the system
[2017-05-07] MEDS: PROMETHAZINE 25 MG INJECTION IVP PRN ×2 (12:33→21:15)
[2017-05-07 13:03] VITALS: BMI 26.2
[2017-05-07] MEDS ORDERED: [UNRECOGNIZED DRUG - OTHER] IV PRN (13:43)
[2017-05-07] MEDS ORDERED: GLUCAGON 1 MG INJECTION IM PRN (13:43)
[2017-05-07] MEDS ORDERED: IBUPROFEN 600 MG TABLET PO PRN (13:43)
[2017-05-07] MEDS ORDERED: SALIVA SUBSTITUTE MOUTH SPRAY 1.5oz PO PRN (13:43)
[2017-05-07] MEDS ORDERED: ALBUTEROL/IPRATROPIUM 2.5mg-0.5mg/3ml NEB AEROSOL PRN (13:43)
[2017-05-07] MEDS ORDERED: ACETAMINOPHEN 650 MG SUPPOSITORY PR PRN (13:43)
[2017-05-07] MEDS ORDERED: POLYETHYL GLYCOL 3350 17gm PACKET PO PRN (13:43)
[2017-05-07] MEDS ORDERED: FUROSEMIDE 20 MG/2 ML INJECTION IVP PRN (13:43)
[2017-05-07] MEDS ORDERED: TIGECYCLINE 50 MG IV SCH (13:45)
[2017-05-07] MEDS ORDERED: INSULIN ASPART 100unit/ml INJECTION SQ PRN (13:51)
[2017-05-07] MEDS ORDERED: MULTI-VIT INFUSION 10 ML, MULTI-TRACE ELEMENTS 1 ML in TPN - STANDARD FORMULA 2,000 ML IV SCH ×2 (14:00→15:22)
[2017-05-07] MEDS: Oxycodone *IR* 5 MG TABLET PO PRN ×2 (14:13→21:49)
--- NOTE | 2017-05-07 15:10 | IRU History & Physical Report ---
[facility] IRU Date: [id number] Chief complaint: My abdomen hurts and I'm weak HPI: Laura is a 41-year-old female known to the inpatient rehabilitation unit from a previous stay from 04/09/2017 through 04/16/2017. During that time the patient experienced increasing white blood cell count and progressive anemia. She was transferred back to [facility] in [place] for further evaluation of possible sepsis. She had had an ESBL-producing Klebsiella pneumoniae in her urine. Briefly, she has a history of neuroendocrine tumor resected on 07/10/2016. She is been in the hospital or other facilities continuously since that time apparently. She has had recurrent enterocutaneous fistulae and has had numerous abdominal procedures including a skin graft to cover her intestine. Despite this she has had continued pain in the abdomen and has an open wound with a drain in place. Has chronic abdominal pain. Most recently she was admitted to [facility]. Blood cultures at that location were negative 2. Previously the PICC line had been removed back in March and the tip of the PICC line was positive for Enterococcus faecalis, sensitive to vancomycin and ampicillin and tigecycline. At this time, to my knowledge, the cultures were all negative. However she was treated with Cipro, Flagyl and aztreonam because of the evidence of sepsis. She has an apparent allergy to vancomycin and therefore is finishing up a two-week course of Tygacil. She did have evidence of sepsis at the time of admission to [facility]. In addition, during the recent hospitalization in [place], she was seen by GI after a CT scan demonstrated a pancreatic pseudocyst. Attempt at EUS via the gastroscope with possible cyst puncture was made but was aborted because of risk of complications with ascites etc. Her pro-calcitonin has been monitored and has been increasing recently. On April 18 it was 0.89. On April 20 was 2.16 the next day was 2.68. It dropped to 0.87 on April 25. On April 29 it was 1.04 and on May 30 was 2.06. She was managed by infectious disease in [place] ( Dr. Marcial Lewis). He noted an abdominal fluid collection which was consistent with a pancreatic pseudocyst measuring 4.1 x 4.1 x 4.6 cm. He is recommending a two-week total treatment of Tygacil which she is finishing up. The patient does have history of metastatic neuroendocrine tumor status post resection. It was metastatic at least to liver. Has a history of recent enterrococcus faecalis central line associated bloodstream infection and septic shock. She is to stay on the tigecycline for a total of 2 weeks therapy. 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 She has colocutaneous fistulae prior bile leak status post stent and eventual removal. She reportedly developed a new allergy to Cipro during this last hospitalization in [place] but it is not clear what the reaction was. She did have evidence of acute kidney injury which has resolved. Mills catheter is in place. Nephrology did see her in [place]. Has also had recent hyponatremia and her leukocytosis as previously noted. Blood and urine cultures reportedly showed no growth in [place] most recently. She was evaluated by physical therapy and occupational therapy in [place] and she was felt to have potential for improvement and would be able to tolerate 90 minutes of therapy daily by each of those disciplines. She does complain of chronic abdominal pain and indicates that this prevents her from participating in therapy at times. Prior to transfer to [place], patient did indicate that she would cooperate and participate in the therapy 3 hours daily. In addition she agreed to limit her oral intake of liquids to 120 ML per hour only if she participates in therapy. If she consumes too many liquids by mouth she does tend to vomit. Finally, the patient was on intravenous Dilaudid and Demerol in [place]. We agreed to accept her on the condition that we would manage her pain with oral medication and fentanyl patch only (she is on 75 g every 3 days of the fentanyl patch). She agreed to that approach (ie, no IV pain meds). The following medical conditions are noted and require physician monitoring and treatment. 1. Pain management in view of her abdominal pain 2. 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 Patient is on TPN which will require close monitoring. 3. Recent acute kidney injury and sepsis with continued requirement for tigecycline at present. 4. Recent hyponatremia - improved 5. 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 The following therapies will be needed: 1. Physical therapy: for transfers and ambulation and stairs. 2. Occupational therapy: for ADL's and transfers. 3. Dietitian: To assist in management of nutrition and TPN 4. Medical management: for the above conditions. 5. 24 hour Rehabilitation Nursing to monitor and address the following: Restriction of oral fluid intake, pain management, dressing changes and wound management in view of her chronically draining abdominal wounds and fistulae. Review of Systems - Constitutional Constitutional: Present: fatigue, lethargy, malaise, weakness - EENMT Eyes: Absent: blurry vision, change in vision Mouth/Throat: Absent: sore throat - Cardiovascular Cardiovascular: Absent: chest pain, palpitations, dyspnea on exertion, orthopnea , edema Vascular: Present: atrophy. Absent: pedal edema - Respiratory Respiratory: Absent: cough, dyspnea, dyspnea on exertion, wheezing - Gastrointestinal Gastrointestinal: Present: abdominal pain, nausea, vomiting. 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 Hx neuroendocrine tumor (resected) with hepatic metastases. 2. Hx pancreatitis. 3. Hx multiple entero-cutaneous fistulae. 4. Chronic abd pain. 5. Hx sepsis, including hx CLABSI. 6. Anemia Surgical History: 07/10/16-resection of intra-abdominal neuroendocrine tumor. Subsequently appendectomy, small bowel resection, removal of large mesenteric mass. Multiple other exploratory laparotomies with further resections and ileostomy Family History: Father is living. He has diabetes and atrial fibrillation with recent RF ablation procedure. Mother is living with diabetes mellitus. - Social History Smoking status: Never smoker Alcohol intake: former Current occupational exposures/hazards: No Does patient use chewing tobacco?: No Medications Home Medications Medication Instructions Recorded Confirmed Type Acetaminophen [Acetaminophen Extra 1,000 mg PO Q6HPRN PRN 04/09/17 05/07/17 History Strength] Acetaminophen [Feverall] 650 mg RC Q4HPRN PRN 04/09/17 05/07/17 History Albuterol/Ipratropium [Duoneb] 1 unit AEROSOL QIDPRN PRN 04/09/17 05/07/17 History Cetirizine [Zyrtec] 5 mg PO DAILY 04/09/17 05/07/17 History D50w [Dextrose 50% in Water] 50 ml IV O PRN 04/09/17 05/07/17 History DiphenhydrAMINE [Benadryl] 25 mg IV Q8HPRN PRN 04/09/17 05/07/17 History FentaNYL PATCH [Duragesic Patch] 25 mcg TD Q3D 04/09/17 05/07/17 History FentaNYL PATCH [Duragesic Patch] 50 mcg TD Q3D 04/09/17 05/07/17 History Furosemide [Lasix] 20 mg IM DAILY PRN 04/09/17 05/07/17 History Glucagon [Glucagen] 1 mg IM PRN PRN 04/09/17 05/07/17 History Heparin Sodium,Porcine/Pf [Heparin 1 ml IVP BID 04/09/17 05/07/17 History Flush 10 Units/ml Syr] HydrOXYzine [Atarax] 25 mg PO QIDPRN PRN 04/09/17 05/07/17 History Hydromorphone HCl in 0.9% NaCl 0.25 mg IVP Q2HPRN PRN 04/09/17 05/07/17 History [Hydromorphone-Ns 1 mg/ml Syr] Insulin Lispro [Humalog] 0 unit SQ PRN PRN 04/09/17 05/07/17 History LORazepam INJ [Ativan Inj] 0.13 ml IM Q6HPRN PRN 04/09/17 05/07/17 History Meperidine HCl/Pf [Meperidine 25 2 ml IV Q4HPRN PRN 04/09/17 05/07/17 History mg/ml Vial] Miconazole 2% Powder [Desenex] 1 applic TP BID 04/09/17 05/07/17 History Nystatin Cream [Mycostatin] 1 applic TOP BID 04/09/17 05/07/17 History Ondansetron [Zofran Odt] 1 tab PO Q6HPRN PRN 04/09/17 05/07/17 History Oxycodone *Ir* [Roxicodone *Ir*] 5 - 10 mg PO Q4HPRN PRN 04/09/17 05/07/17 History Polyethylene Glycol 3350 17 gm PO DAILY PRN 04/09/17 05/07/17 History Saliva Substitute Mouth Webber 1 applic PO QIDPRN PRN 04/09/17 05/07/17 History [Biotene Moisturizing Mouth Webber] Ibuprofen [Motrin] 1 tab PO Q6H PRN 05/07/17 05/07/17 History Tigecycline 50 mg IV Q12H 05/07/17 05/07/17 History Allergies Allergy/AdvReac Type Severity Reaction Status Date / Time kiwi Allergy Severe Rash Verified 05/07/17 13:02 orange Allergy Severe Rash Verified 05/07/17 13:02 vancomycin Allergy Severe Rash Verified 05/07/17 13:02 Penicillins Allergy Unknown Verified 05/07/17 13:02 Results IRU - Labs Labs: Extensive review of outside records and previous records from [facility] was undertaken. Exam Vital Signs: Temperature 97.7 F 05/07/17 12:12 Pulse Rate 106 H 05/07/17 12:12 Respiratory Rate 16 05/07/17 12:12 Blood Pressure 113/65 05/07/17 12:12 Pulse Oximetry 100 05/07/17 12:12 Oxygen Delivery Method Room Air Height: 1.57 m Weight: 65 kg Body Mass Index: 26.2 - Constitutional Present: moderate distress - Routine HEENT Exam Head: Present: normocephalic, atraumatic Eye: Present: EOMI, PERRL ENT: Present: mucous membranes dry - Routine Neck Exam Present: supple, full ROM - Routine Respiratory Exam Present: CTA bilaterally. Absent: accessory muscle use, dyspnea, decreased breath sounds, rhonchi, wheezes, crackles - Routine Cardiovascular Exam Present: RRR, S1, S2, no murmur - Routine Abdominal Exam Present: tenderness, non distended, guarding, surgical scars, wound, drain - Routine Extremities Exam Present: no edema, non tender. Absent: cyanosis - Routine Skin Exam Present: warm, wounds. Absent: intact - Routine Neurological Exam Present: alert, oriented X3, CN II-XII intact - Routine Psychiatric Exam Present: depressed, anxious. Absent: cooperative, good insight, good judgment Sepsis Assessment - Evaluation Sepsis screening result: No Definite Risk IRU A/P DVT Prophylaxis: SCD's, Lovenox Resuscitation Status: Full Code - Course Hospital Course: Yevgeniy Woo MD: - Interventions to Obtain Goals Goals Progress/Modifications: Goal is to improve pain control, improve mobility and transfers so that she might be able to return home at some point.
--- NOTE | 2017-05-07 15:21 | IRU 24Hr Post Admit Eval ---
24 Hr Post Admission Physical - Relevant Changes Relevant Changes: No Reviewed: I have reviewed the patient's information and concur with the finding and results of the pre-admission screen. Certification: I certify the patient for rehabilitation. - Prior Functional Status Lives With: Spouse, With Family Residence Type: Apartment/Private Home Assitive Devices: Front Wheeled Walker Prior Functional Status: Depend. at home or school, Need assist w/ home ADL - Current Functional Status Failed Alternative Therapy: Arrived from Acute Care Patient Requirements: The patient requires oversight by rehabilitation physician to manage their rehabilitation treatment plan and multidisciplinary approach to care that can only be provided in an IRF and requires a multidisciplinary approach to care, provided by professional PTs, OTs, STs, dieticians, RTs, rehabilitation nurses and is not available in lesser levels of care. Limitiations Req: Mobility Impairment, ADL Impairment, Limited Mobility, Desire/ Ability to Partici Physical Therapy Minutes: 90 Occupational Therapy Minutes: 90 Therapy: The patient is to receive therapy at least 5 days a week. - Complications/Comorbidities Barriers to Discharge: Weakness, Endurance, Comprehension, Pain Control, Medical Limitation - Plan to Avoid Complications Plan to Avoid Complications: The patient cannot receive this care in a lesser intensive setting such as [facility] or Outpatient Therapy due to the patient requiring the following : 24 hour rehabilitation nursing management of chronically draining abdominal wound, pain management, and need for total parenteral nutrition as well as medical management of her chronic pain, risk for recurrent infections, anemia and fluid management in view of the chronically draining abdominal wound.
[2017-05-07] MEDS ORDERED: FAT EMULSION 20% 100 ML BAG IV SCH (16:00)
[2017-05-07] MEDS: ENOXAPARIN 40 MG/0.4 ML INJECTION SQ SCH (17:32)
[2017-05-07] MEDS: FAT EMULSION 20% 100 ML IV SCH (17:32)
[2017-05-07] MEDS: MULTI TRACE ELEMENTS IV SCH (17:33)
[2017-05-07] MEDS: SODIUM CHLORIDE IV SCH (17:33)
[2017-05-07] MEDS: MULTI VIT INFUSION IV SCH (17:33)
[2017-05-07] MEDS: [UNRECOGNIZED DRUG - OTHER] IV SCH (17:33)
--- NOTE | 2017-05-07 17:37 | Pharmacy Consult-TPN/PPN ---
Pharmacy Consult-TPN/PPN - Laboratory Information Chemistry Turbidity < 20 (0-20) 05/07/17 15:45 Sodium 141 MEQ/L (134-144) 05/07/17 15:45 Potassium 3.9 MEQ/L (3.6-5) 05/07/17 15:45 Chloride 108 MEQ/L (98-107) H 05/07/17 15:45 Carbon Dioxide 24 MEQ/L (22-30) 05/07/17 15:45 Anion Gap 9 MEQ/L (5-15) 05/07/17 15:45 BUN 69.0 MG/DL (7-17) H* 05/07/17 15:45 Creatinine 0.8 MG/DL (0.7-1.2) 05/07/17 15:45 GFR Calculation 79 05/07/17 15:45 BUN/Creatinine Ratio 86 RATIO (6-26) H 05/07/17 15:45 Glucose 113 MG/DL (65-110) H 05/07/17 15:45 Calculated Osmolality 292 MOSM/KG (261-280) H 05/07/17 15:45 Calcium 8.9 MG/DL (8.4-10.2) 05/07/17 15:45 Phosphorus 4.7 MG/DL (2.5-4.5) H 05/07/17 15:45 Magnesium 1.8 MG/DL (1.6-2.3) 05/07/17 15:45 Total Bilirubin 1.20 MG/DL (0.20-1.30) 05/07/17 15:45 Icterus Index < 2 (0-7) 05/07/17 15:45 AST 79 U/L (14-36) H 05/07/17 15:45 ALT 80 U/L (9-52) H 05/07/17 15:45 Alkaline Phosphatase 553 U/L (38-126) H 05/07/17 15:45 Total Protein 7.2 G/DL (6.3-8.2) 05/07/17 15:45 Albumin 2.5 G/DL (3.5-5.0) L 05/07/17 15:45 Globulin 4.7 G/DL (2.4-3.6) H 05/07/17 15:45 Albumin/Globulin Ratio 0.5 RATIO (1.1-2.2) L 05/07/17 15:45 Specimen Hemolysis < 15 (0-25) 05/07/17 15:45 Intake and Output 05/06/17 05/07/17 05/08/17 06:59 06:59 06:59 Intake Total 120 / 120 Balance 120 / 120 Weight 65 kg Intake: Oral 120 / 120 - Consult Information We will use standard TPN formula with following additions. 30mEq of NaCl and 30mEq of KCl. This formula reflects most recent formula from previous institution. We anticipate changes to this formula on 05/08/17 with removal of phosphate pending on 05/08 BMP. This TPN will run at 75mL per hour. Thanks
--- NOTE | 2017-05-07 17:42 | Wound Care Progress Note ---
Wound Center Progress Note: Went to check on pt after admission. Pt is sitting in chair at bedside, pouch check and no leak present suction working appropriately. Will change pouches on - - . Staff and I discussed what was appropriate treatment when pouch leaking.
--- NOTE | 2017-05-07 17:54 | Consult Note ---
<Abbie Olivas - Last Filed: 05/07/17 17:40> Consult Information - Data of Consult Patient: known to practice within the last 3 years Consult date: 05/07/17 Requesting Physician: Yevgeniy Woo MD Primary Care Provider: ODALYS Barkley Family Provider: ODALYS Barkley - Consult Narrative Reason for consult: medical management of complex ongoing medical conditions History of present illness: Patient is 41-year-old female who was initially admitted July 10, 2016 for resection of an intra-abdominal neuroendocrine tumor. She underwent removal of a large mesenteric tumor as well as tumor on the liver, small bowel resection, and appendectomy. She had multiple complications following this procedure including several enteric leaks, EC fistula, pancreatitis, respiratory failure and line sepsis. Following her initial long hospitalization starting 07/10/16, she was in LTAC in [place] from 11/18/16 until 01/22/17. She was then moved to swing bed status at [place] from 01/22 through 03/26. She obtained a central line infection and was readmitted to [facility] on March 26. She was hospitalized there until April 09. At that point she came back to [facility] rehabilitation until April 17. She was transferred back [facility] on April 17 because of worsening leukocytosis, acute kidney injury, and worsening abdominal pain. She was followed by Dr. Marcial Lewis for her infection. She was started on tigecycline. She had a CT scan which showed pancreatic pseudocyst. On 05/01/17 endoscopic cystgastrostomy was attempted by Dr. Flores but was unsuccessful due to overlying vessels and loculations. She was felt to be stable enough to be transferred back to our rehabilitation for further wound care and strengthening at this point. Patient has recently been afebrile. Her white blood cell count has been fluctuating over the last 4 days between 11.3-13.5. Her hemoglobin has ranged 8.4-9.4. Her creatinine has been stable. Sodium 141. Potassium 3.9. Phosphorus slightly elevated at 4.7. Magnesium 1.8. AST, ALP, alkaline phosphatase are all elevated. She is currently on Tygacil for a total of 28 days which will end 05/[address] Lewis. [facility] Medical History Updates: 1. Hx neuroendocrine tumor (resected) with hepatic metastases. 2. Hx pancreatitis. 3. Hx multiple entero-cutaneous fistulae. 4. Chronic abd pain. 5. Hx sepsis, including hx CLABSI. 6. Anemia. 7. Hypertension. 8. Diabetes Surgical History: 07/10/16-resection of intra-abdominal neuroendocrine tumor from mesentary and liver, appendectomy, small bowel resection, multiple other exploratory laparotomies with further resections and ileostomy, tracheotomy. Endoscopic cystgastrostomy- 05/17 Family History: Father-atrial fibrillation, diabetes mellitus Mother-diabetes mellitus - Social History Smoking status: Never smoker Substance use type: does not use Household members: spouse, children Current residence: Apartment/Private Home Review of Systems Comprehensive ROS: completed and no additional positive findings except those as stated - Constitutional Constitutional: Present: fatigue - EENMT Mouth/Throat: Present: sore throat - Cardiovascular Vascular: Present: atrophy, pedal edema - Gastrointestinal Gastrointestinal: Present: abdominal pain (chronic) - Genitourinary Menstruation: amenorrhea (LMP 07/16. prior to surgery, she was having periods) - Musculoskeletal Musculoskeletal: Present: atrophy, muscle weakness - Integumentary/Breasts Integumentary: Present: wounds (chronic abdominal) Medications Home Medications Medication Instructions Recorded Confirmed Type Acetaminophen [Acetaminophen Extra 1,000 mg PO Q6HPRN PRN 04/09/17 05/07/17 History Strength] Acetaminophen [Feverall] 650 mg RC Q4HPRN PRN 04/09/17 05/07/17 History Albuterol/Ipratropium [Duoneb] 1 unit AEROSOL QIDPRN PRN 04/09/17 05/07/17 History Cetirizine [Zyrtec] 5 mg PO DAILY 04/09/17 05/07/17 History D50w [Dextrose 50% in Water] 50 ml IV O PRN 04/09/17 05/07/17 History DiphenhydrAMINE [Benadryl] 25 mg IV Q8HPRN PRN 04/09/17 05/07/17 History FentaNYL PATCH [Duragesic Patch] 25 mcg TD Q3D 04/09/17 05/07/17 History FentaNYL PATCH [Duragesic Patch] 50 mcg TD Q3D 04/09/17 05/07/17 History Furosemide [Lasix] 20 mg IM DAILY PRN 04/09/17 05/07/17 History Glucagon [Glucagen] 1 mg IM PRN PRN 04/09/17 05/07/17 History Heparin Sodium,Porcine/Pf [Heparin 1 ml IVP BID 04/09/17 05/07/17 History Flush 10 Units/ml Syr] HydrOXYzine [Atarax] 25 mg PO QIDPRN PRN 04/09/17 05/07/17 History Hydromorphone HCl in 0.9% NaCl 0.25 mg IVP Q2HPRN PRN 04/09/17 05/07/17 History [Hydromorphone-Ns 1 mg/ml Syr] Insulin Lispro [Humalog] 0 unit SQ PRN PRN 04/09/17 05/07/17 History LORazepam INJ [Ativan Inj] 0.13 ml IM Q6HPRN PRN 04/09/17 05/07/17 History Meperidine HCl/Pf [Meperidine 25 2 ml IV Q4HPRN PRN 04/09/17 05/07/17 History mg/ml Vial] Miconazole 2% Powder [Desenex] 1 applic TP BID 04/09/17 05/07/17 History Nystatin Cream [Mycostatin] 1 applic TOP BID 04/09/17 05/07/17 History Ondansetron [Zofran Odt] 1 tab PO Q6HPRN PRN 04/09/17 05/07/17 History Oxycodone *Ir* [Roxicodone *Ir*] 5 - 10 mg PO Q4HPRN PRN 04/09/17 05/07/17 History Polyethylene Glycol 3350 17 gm PO DAILY PRN 04/09/17 05/07/17 History Saliva Substitute Mouth [place] 1 applic PO QIDPRN PRN 04/09/17 05/07/17 History [Biotene Moisturizing Mouth [place]] Ibuprofen [Motrin] 1 tab PO Q6H PRN 05/07/17 05/07/17 History Tigecycline 50 mg IV Q12H 05/07/17 05/07/17 History Allergies Allergy/AdvReac Type Severity Reaction Status Date / Time kiwi Allergy Severe Rash Verified 05/07/17 13:02 orange Allergy Severe Rash Verified 05/07/17 13:02 vancomycin Allergy Severe Rash Verified 05/07/17 13:02 Penicillins Allergy Unknown Verified 05/07/17 13:02 Exam Vital Signs: Temperature 98.5 F 05/07/17 16:00 Pulse Rate 130 H 05/07/17 16:02 Respiratory Rate 16 05/07/17 16:02 Blood Pressure 111/81 05/07/17 16:00 Pulse Oximetry 97 05/07/17 16:02 Oxygen Delivery Method Room Air Fraction of Inspired Oxygen 21 Height: 1.57 m Weight: 65 kg Body Mass Index: 26.2 - Constitutional Present: mild distress, well nourished, well developed - Routine HEENT Exam Head: Present: normocephalic, atraumatic Eye: Present: EOMI, PERRL ENT: Present: mucous membranes dry, oropharynx clear - Routine Neck Exam Present: supple, full ROM - Routine Respiratory Exam Present: CTA bilaterally. Absent: wheezes - Routine Cardiovascular Exam Present: RRR, S1, S2. Absent: murmur - Routine Abdominal Exam Present: soft, tenderness, wound (large chronic open abdominal wound with visible intestines), drain (moderate amount of dark yellow/red liquid within dressing and draining by dependent drainage) - Routine Exam Comments: Mills catheter - Routine Extremities Exam Present: no edema, normal capillary refill Comments: Atrophy. Significant weakness upper and lower extremities. Patient requires almost full assist with transferring from chair to bed. - Routine Skin Exam Present: dry, warm Comments: Pressure ulcer to central buttocks-currently covered with dressing. Wound care is following this. - Routine Neurological Exam Present: alert, oriented X3, CN II-XII intact - Routine Psychiatric Exam Present: normal affect, normal thought process, cooperative Results - Labs CBC & Chem 7: 05/07/17 15:45 Assessment and Plan (1) Open abdominal wall wound Current visit: Yes Status: Chronic (2) Myopathy Problem details: Critical illness myopathy Current visit: Yes Status: Acute DVT Prophylaxis: SCD's, Lovenox Resuscitation Status: Full Code Assessment and Plan: Impression Chronic draining abdominal wound Decubitus ulcer -buttocks Malnutrition-with limitation of oral intake due to condition. Patient is on TPN. Recent acute kidney injury-resolved Recent hyponatremia-improved Recent sepsis with continued requirement for tigecycline Pancreatic pseudocyst-with attempted, but unsuccessful, endoscopic cyst gastrostomy for drainage. 05/01/17 Metastatic neuroendocrine tumor S/P resection Leukocytosis-persistent Recent recurrent peritonitis due to enteric leaks-S/P long course of IV antibiotics. Previous E. faecalis CLABSI with resolved shock-S/P tigecycline completed 04/09 ( 2 weeks total treatment) Colocutaneous fistula. Diabetes Hypertension Amenorrhea since surgery 07/16 Plan Agree to IRU admission for strengthening and mobility, pain control, and wound care. Dr. Woo will supervise pain management. Patient has agreed to no IV pain meds. Currently on fentanyl patch. She will require physical therapy and occupational therapy for ambulation, transfers, and ADLs. Pharmacy consult to assist in the management of TPN Wound care consultation for management of her abdominal wound and decubitus ulcer. Continue tigecycline through 05/19/17 for recent sepsis per Dr. Lewis. Patient agreed to limit oral intake of liquids to less than 120 mL per hour as she has increased drainage from her wound and tends to vomit with larger amounts of oral intake. CBC and BMP in a.m. Magnesium, CMP and phosphorus levels have been ordered for by Dr. Woo. Mills catheter is in place. This could potentially be discontinued in the near future. SCDs and Lovenox for VTE prophylaxis Routine Accu-Cheks to follow blood sugars. Consider further workup of amenorrhea with TSH, prolactin, FSH, LH levels. is unsure if she has had lab work to address this. Patient is a FULL CODE. Hospital Course Summary Disclaimer: The visit summary below is not to be considered part of the above Progress Note. Sepsis Assessment - Evaluation Sepsis screening result: No Definite Risk <Carmen De - Last Filed: 05/08/17 16:15> Consult Information - Data of Consult Requesting Physician: Yevgeniy Woo MD Primary Care Provider: ODALYS Barkley Family Provider: ODALYS Barkley [facility] Patient Stated Medical History Other GI pancreatitis/open colon fistula Hx Renal Disease Yes: Hx: renal failure (post op complication) Sepsis Yes Other Infectious Yes: beta lactam resistanct bacterial infection / vanco resistant enterococcus Exam Vital Signs: Temperature 97.6 F 05/08/17 15:55 Pulse Rate 103 H 05/08/17 15:55 Respiratory Rate 16 05/08/17 15:55 Blood Pressure 117/76 05/08/17 15:55 Pulse Oximetry 100 05/08/17 15:55 Oxygen Delivery Method Room Air Fraction of Inspired Oxygen 21 Height: 5 ft 2 in Weight: 143 lb 4.807 oz Results - Labs CBC & Chem 7: 05/08/17 04:12 05/08/17 04:12 Assessment and Plan (1) Open abdominal wall wound Current visit: Yes Status: Chronic (2) Myopathy Problem details: Critical illness myopathy Current visit: Yes Status: Acute Assessment and Plan: I have independently evaluated and examined this patient. I reviewed the chart, the patient's history, and the BALLASTER/PA's documented findings as above. We discussed and formulated the assessment and plan as above with additions as below. Events noted and reviewed with patient. In general, the patient is alert and oriented 3, cooperative with exam, and in no respiratory distress. She is obese HEENT: Head is atraumatic, normocephalic, no conjunctival petechiae, no oral thrush, mucous membranes are moist and pink. Lungs: Clear to auscultation without wheezes, crackles or rhonchi CV: Regular rate and rhythm without murmur Abdomen: Obese, Soft, nontender, bowel sounds are present, there is no guarding no rebound. He has a clear pouch on her lower abdomen. Intestines are visible, there is a moderate amount of dark thick yellow-brown drainage noted on the surface. Extremities: No clubbing, no cyanosis, no edema. Skin: Warm and dry no sign of rash Neuro: Patient is alert, weak upper and lower extremities Mills catheter in place The patient is markedly debilitated from her prolonged hospital course with multiple visits. Contacted Dr. Lewis yesterday -the patient is currently on tigecycline similar blade for treatment of his sepsis because her pro-calcitonin bumped up he would like to continue her tigecycline through May 19. Nutrition appears to be a long-standing issue for her. We'll check a prealbumin in the morning and follow closely. We'll discontinue Mills catheter in the morning -discussed with patient, she agrees. Hospital Course Summary Disclaimer: The visit summary below is not to be considered part of the above Progress Note.
[2017-05-07] MEDS: MICONAZOLE 2% POWDER 45gm TP SCH (23:42)
[2017-05-08] MEDS: PROMETHAZINE 25 MG INJECTION IVP PRN ×2 (05:58→11:54)
[2017-05-08] MEDS: Oxycodone *IR* 5 MG TABLET PO PRN ×3 (07:55→17:49)
[2017-05-08] MEDS: ONDANSETRON ODT 4 MG TABLET PO PRN (07:55)
[2017-05-08] MEDS ORDERED: FALL RISK - PHARMACY CONSULT MC PRN (08:02)
[2017-05-08] MEDS: MICONAZOLE 2% POWDER 45gm TP SCH ×2 (08:03→22:37)
[2017-05-08] MEDS: ENOXAPARIN 40 MG/0.4 ML INJECTION SQ SCH (08:03)
[2017-05-08] MEDS: CETIRIZINE 10 MG TABLET PO SCH (08:04)
[2017-05-08] MEDS ORDERED: ACETAMINOPHEN 650 MG SUPPOSITORY PR PRN (09:45)
[2017-05-08] MEDS ORDERED: NS IV SCH (10:00)
[2017-05-08] MEDS ORDERED: [UNRECOGNIZED DRUG - OTHER] IV SCH (10:00)
--- NOTE | 2017-05-08 10:05 | IRU Progress Note ---
- Subjective/Serverity of Illness Laura was seen this morning in her room. She reports that she did cooperate with occupational therapy and that was confirmed by the therapist. However, she is upset that she is awakened every 2 hours at night to help her turn. I did discuss with her the importance of this in terms of prevention of decubitus ulceration. She continues to complain of severe abdominal pain. In addition she does not like the 120 ML per hour oral fluid restriction which is put in place to decrease leakage and fluid output from the drain so that she can participate with therapy more and get stronger. She would like 150 ML per hour and this will be increased. She would like the cup left at her bedside and I advised her not to take it all at once but to simply sip on it. She advised me that she will do this. She denies shortness of breath. She denies any chest pains. She denies nausea or vomiting at present. Primarily complains of abdominal pain. Continues to have severe muscle weakness consistent with critical illness myopathy. She remains afebrile. White count reviewed of 14,000. Laura is been seen by the hospitalist service. We appreciate their assistance. Exam Vital Signs: Temperature 99.1 F 05/08/17 07:48 Pulse Rate 117 H 05/08/17 07:48 Respiratory Rate 16 05/08/17 07:48 Blood Pressure 111/69 05/08/17 07:48 Pulse Oximetry 99 05/08/17 07:48 Oxygen Delivery Method Room Air Fraction of Inspired Oxygen 21 Height: 1.57 m Weight: 65 kg Body Mass Index: 26.2 - Constitutional Present: moderate distress Comments: The patient is awake, alert and oriented but in moderate distress with regard to abdominal pain. She seems to be cooperative with therapy this morning but is tired and would like to rest. Pupils are equal. The neck is supple. Chest: Clear to auscultation bilaterally. Cor: RR with no maria elena, click nor murmur Abd: Firm as before. Bowel sounds present. Tender to any palpation. Open wound noted with drainage to dependency. No evidence of active infection clinically. Extremities: No edema is noted. There are good pulses in both ankles. No cyanosis is present. . - Routine HEENT Exam Head: Present: normocephalic Eye: Present: EOMI ENT: Present: mucous membranes dry - Routine Neck Exam Present: supple, full ROM - Routine Respiratory Exam Present: CTA bilaterally - Routine Cardiovascular Exam Present: RRR, S1, S2, no murmur - Routine Abdominal Exam Present: tenderness, firm (this is unchanged from previous exams.), wound, drain - Routine Skin Exam Present: wounds - Routine Neurological Exam Present: alert, oriented X3, CN II-XII intact, motor deficit, moving all extremities - Routine Psychiatric Exam Present: cooperative, depressed, anxious. Absent: good insight, good judgment Results IRU - Labs Labs: Laboratory reviewed. B1 elevated at 63. White count 14,000. Hemoglobin improved. Sepsis Assessment - Evaluation Sepsis screening result: No Definite Risk IRU A/P (1) Myopathy Problem details: Critical illness myopathy Current visit: Yes Status: Acute Patient has severe muscle wasting and atrophy consistent with critical illness myopathy. She will require continued physical therapy and occupational therapy to return to her former level of functioning. (2) Open abdominal wall wound Qualifiers: Encounter type: subsequent encounter Qualified Code(s): S31.109D - Unspecified open wound of abdominal wall, unspecified quadrant without penetration into peritoneal cavity, subsequent encounter Current visit: Yes Status: Chronic Chronic draining abdominal wound noted. No evidence of active infection in terms of purulence. White count is 14,000. Appreciate wound care nursing as well as hospitalist assistance. (3) Diabetes Qualifiers: Diabetes mellitus type: due to underlying condition Diabetes mellitus complication status: without complication Diabetes mellitus buttermaker helper insulin use: without correction use Qualified Code(s): E08.9 - Diabetes mellitus due to underlying condition without complications Current visit: No Status: Chronic Patient is on sliding scale insulin. Blood sugars are being monitored. Patient is on TPN. DVT Prophylaxis: SCD's, Lovenox Resuscitation Status: Full Code - Course Hospital Course: Yevgeniy Woo MD: 05/08/17 10:09 Initiating physical therapy and occupational therapy. Patient is cooperative this morning. Complains of chronic abdominal pain. Limiting oral intake in an effort to reduce leakage from the wound and allow patient to participate in therapy. She would like to increase the restriction from 120 up to 150 ML per hour. This will be allowed. This is excluding intake at mealtime. We will leave a cup at her bedside and I asked her to simply sip on this and not take it all at once. She agreed to do this. White count 14,000 but without evidence of active infection. She remains afebrile. Pain management is with patches and oral agents only. - Interventions to Obtain Goals PT Treatment Plan: Balance/Proprioception, Functional Activities, Gait Training , Patient/Family Education, Therapeutic Exercise OT Treatment Plan: ADL (Basic Care), Balance Training, Pt./Family Education, UE Functional Training Goals Progress/Modifications: Please note that the patient's individual plan of care was developed and documented today, requiring review of therapy notes, medical conditions and anticipated functional recovery. Please see separate document. This required an additional level of medical decision making and an additional time of approximately 15 minutes on top of the time with patient and documentation.
--- NOTE | 2017-05-08 10:17 | IRU Plan of Care ---
[facility] Overall Plan of Care - Date Date: 05/08/17 - Patient Impairments (1) Myopathy Code(s): G72.9 - Myopathy, unspecified Status: Acute Classification: Present on IRF Admission, IRF Tx That Should Address Diagnosis, Diagnosis Requiring Medical Follow Up (2) Open abdominal wall wound Qualifiers: Encounter type: subsequent encounter Qualified Code(s): S31.109D - Unspecified open wound of abdominal wall, unspecified quadrant without penetration into peritoneal cavity, subsequent encounter Code(s): S31.109A - Unspecified open wound of abdominal wall, unspecified quadrant without penetration into peritoneal cavity, initial encounter Status : Chronic Classification: Present on IRF Admission, IRF Tx That Should Address Diagnosis, Diagnosis Requiring Medical Follow Up, Other Contributing Factor (3) Diabetes Qualifiers: Diabetes mellitus type: due to underlying condition Diabetes mellitus complication status: without complication Diabetes mellitus intermediate insulin use: without termite control technician use Qualified Code(s): E08.9 - Diabetes mellitus due to underlying condition without complications Code(s): E11.9 - Type 2 diabetes mellitus without complications Status: Chronic Classification: Present on IRF Admission, IRF Tx That Should Address Diagnosis, Diagnosis Requiring Medical Follow Up - Relevant Changes Relevant Changes: No Reviewed: I have reviewed the patient's information and concur with the finding and results of the pre-admission screen. Certification: I certify the patient for rehabilitation. - Medical Prognosis Vital Signs: Last Vital Signs Temp 99.1 F 05/08/17 07:48 Pulse 117 H 05/08/17 07:48 Resp 16 05/08/17 07:48 BP 111/69 05/08/17 07:48 Pulse Ox 99 05/08/17 07:48 Laboratory: Patient continues to demonstrate anemia of chronic disease with hemoglobin around 9.7. Her white count is variable and is currently 14,000. Her BUN is elevated at 63. Patient is managed with TPN. - Anticipated Interventions Anticipated Interventions: The patient requires inpatient IRF care for PT, OT, and/or ST for residuals remaining from recent infection, chronic abdominal draining wound and critical illness myopathy resulting in muscular weakness and strength deficits. Strength Deficits: Right Upper Extremity, Right Lower Extremity, Left Upper Extremity, Left Lower Extremity - FIM Ambulation Distance: 2 - Current Functional Status Failed Alternative Therapy: Arrived from Acute Care Patient Requires: The patient requires oversight by rehabilitation physician to manage their rehabilitation treatment plan and multidisciplinary approach to care that can only be provided in an IRF and requires a multidisciplinary approach to care, provided by professional PTs, OTs, STs, dieticians, RTs, rehabilitation nurses and is not available in lesser levels of care. Physical Therapy Minutes: 90 Occupational Therapy Minutes: 90 Therapy: The patient is to receive therapy at least 5 days a week. - Anticipated LOS/Outcomes Anticipated Functional Outcome: Our goal is for the patient to maintain adequate nutrition, avoid additional infections and to return to her home with ability to dress herself and ambulate short distances. Anticipated Length of Stay: 10 Anticipated DC Destination: Home Health Service Home Safety Plan: The patient will be provided with the development of a Home Safety Plan for return to a home or home-like environment and and to ensure safety post discharge. - Plan to Avoid Complications Barriers to Attaining Goals: Weakness, Endurance, Pain Control, Medical Limitation Plan to Avoid Complications: The patient cannot receive this care in a lesser intensive setting such as Longterm or Outpatient Therapy due to the patient requiring the following : 24 hour rehabilitation nursing care of her chronically draining abdominal wound, pain management and limitation of oral intake in order to avoid further drainage/leakage. In addition she is on TPN which requires close laboratory monitoring and blood sugar monitoring. She has a history of severe infections and sepsis and is at high risk for this to recur. This requires a multidisciplinary approach involving 24 rehabilitation nursing, medical management as well as coordination with physical therapy and occupational therapy.
[2017-05-08] MEDS ORDERED: MULTI-VIT INFUSION 10 ML, MULTI-TRACE ELEMENTS 1 ML, SODIUM CHLORIDE CONC 40 MEQ, POTA... IV SCH (10:45)
--- NOTE | 2017-05-08 11:15 | Pharmacy Consult-TPN/PPN ---
Pharmacy Consult-TPN/PPN - Laboratory Information Chemistry Turbidity < 20 (0-20) 05/08/17 04:12 Sodium 138 MEQ/L (134-144) 05/08/17 04:12 Potassium 3.8 MEQ/L (3.6-5) 05/08/17 04:12 Chloride 108 MEQ/L (98-107) H 05/08/17 04:12 Carbon Dioxide 22 MEQ/L (22-30) 05/08/17 04:12 Anion Gap 8 MEQ/L (5-15) 05/08/17 04:12 BUN 63.0 MG/DL (7-17) H* 05/08/17 04:12 Creatinine 0.8 MG/DL (0.7-1.2) 05/08/17 04:12 GFR Calculation 79 05/08/17 04:12 BUN/Creatinine Ratio 79 RATIO (6-26) H 05/08/17 04:12 Glucose 117 MG/DL (65-110) H 05/08/17 04:12 Calculated Osmolality 285 MOSM/KG (261-280) H 05/08/17 04:12 Calcium 8.5 MG/DL (8.4-10.2) 05/08/17 04:12 Phosphorus 4.7 MG/DL (2.5-4.5) H 05/07/17 15:45 Magnesium 1.8 MG/DL (1.6-2.3) 05/07/17 15:45 Total Bilirubin 1.20 MG/DL (0.20-1.30) 05/07/17 15:45 Icterus Index < 2 (0-7) 05/08/17 04:12 AST 79 U/L (14-36) H 05/07/17 15:45 ALT 80 U/L (9-52) H 05/07/17 15:45 Alkaline Phosphatase 553 U/L (38-126) H 05/07/17 15:45 Total Protein 7.2 G/DL (6.3-8.2) 05/07/17 15:45 Albumin 2.5 G/DL (3.5-5.0) L 05/07/17 15:45 Globulin 4.7 G/DL (2.4-3.6) H 05/07/17 15:45 Albumin/Globulin Ratio 0.5 RATIO (1.1-2.2) L 05/07/17 15:45 Specimen Hemolysis < 15 (0-25) 05/08/17 04:12 Intake and Output 05/07/17 05/08/17 05/09/17 06:59 06:59 06:59 Intake Total 120 / 120 280 / 280 Output Total 950 / 950 250 / 250 Balance -830 / -830 30 / 30 Weight 65 kg Intake: Oral 120 / 120 280 / 280 Output: Emesis 250 / 250 Urine Amount (Catheter) 950 / 950 - Consult Information Current rate on TPN is 75 mls/hr. Will add 10meq of sodium chloride and potassium chloride to today's formula. Will recheck phosphorus tomorrow, if it remains high will switch to custom TPN Thank you.
[2017-05-08] MEDS: ACETAMINOPHEN 500 MG TABLET PO PRN (11:20)
[2017-05-08] MEDS: TIGECYCLINE 50 MG in NS 100 ML IV SCH ×2 (11:29→22:49)
--- NOTE | 2017-05-08 12:26 | IRU Team Meeting ---
IRU Team Meeting - Nursing Vital Signs: Vital Signs - 24 hr 05/07/17 16:00 05/07/17 16:02 05/07/17 17:48 Temperature 98.5 F Pulse Rate 130 H 130 H 112 H Respiratory Rate 16 16 Blood Pressure 111/81 120/72 Pulse Oximetry 97 97 05/07/17 21:45 05/08/17 07:48 05/08/17 11:59 Temperature 98.9 F 99.1 F 98.4 F Pulse Rate 117 H 117 H 114 H Respiratory Rate 16 16 18 Blood Pressure 95/60 111/69 101/68 Pulse Oximetry 98 99 93 Current Medications: Acetaminophen (Tylenol) 1,000 mg PO Q6H PRN PRN Reason: Pain Last Admin: 05/08/17 11:20 Dose: 1,000 mg Acetaminophen (Tylenol Supp) 650 mg MD Q4H PRN PRN Reason: Fever Albuterol/Ipratropium (Duoneb) 3 ml AEROSOL QID PRN PRN Reason: Shortness of air/wheezing Cetirizine HCl (Zyrtec) 5 mg PO DAILY [facility] Last Admin: 05/08/17 08:04 Dose: 5 mg Diphenhydramine HCl (Benadryl) 25 mg IVP Q8H PRN PRN Reason: Itching Enoxaparin Sodium (Lovenox) 40 mg SQ DAILY [facility] Last Admin: 05/08/17 08:03 Dose: 40 mg Fentanyl (Duragesic Patch) 50 mcg TD Q3D [facility] Fentanyl (Duragesic Patch) 25 mcg TD Q3D [facility] Fentanyl Citrate (Duragesic Patch Removal) 1 removal TD Q3D [facility] Furosemide (Lasix) 20 mg IVP DAILY PRN PRN Reason: NEEDED Glucagon (Glucagen) 1 mg IM PRN PRN PRN Reason: hypoglycemia Heparin Sodium (Beef Lung) (Heparin Flush) 100 unit IV BID [facility] Last Admin: 05/08/17 08:03 Dose: 100 unit Hydroxyzine HCl (Atarax) 25 mg PO QID PRN PRN Reason: Itching Fat Emulsion Intravenous (Intralipid 20%) 100 mls @ 50 mls/hr IV 1600 [facility] Last Admin: 05/07/17 17:32 Dose: 50 mls/hr Multivitamins/Minerals 10 ml/Chromium/Copper/Manganese/Zinc 1 ml/ Sodium Chloride 30 meq/Potassium Chloride 30 meq/Folic Acid 2 mg/ Thiamine HCl 100 mg/ Amino Acids/Electrolytes/Dextrose 2,034.9 mls @ 75 mls/hr IV .Q24H [facility] PRN Reason: Protocol Stop: 05/08/17 17:29 Last Admin: 05/07/17 17:33 Dose: 75 mls/hr Tigecycline 50 mg/ Sodium (Chloride) 100 mls @ 100 mls/hr IV Q12H [facility] Last Admin: 05/08/17 11:29 Dose: 100 mls/hr Multivitamins/Minerals 10 ml/Chromium/Copper/Manganese/Zinc 1 ml/ Sodium Chloride 40 meq/Potassium Chloride 40 meq/Folic Acid 2 mg/ Thiamine HCl 100 mg/ Amino Acids/Electrolytes/Dextrose 2,042.4 mls @ 75 mls/hr IV .Q24H [facility] PRN Reason: Protocol Ibuprofen (Motrin) 600 mg PO Q6H PRN PRN Reason: Pain Insulin Aspart (Novolog) 0 unit SQ PRN PRN PRN Reason: Protocol Lorazepam (Ativan Inj) 0.25 mg IM Q6H PRN PRN Reason: Anxiety Miconazole Nitrate (Desenex) 1 applic TP BID [facility] Last Admin: 05/08/17 08:03 Dose: Not Given Nystatin (Mycostatin) 1 applic TP BID [facility] Last Admin: 05/08/17 09:07 Dose: 1 applic Ondansetron HCl (Zofran Po) 4 mg PO Q6H PRN PRN Reason: Nausea Last Admin: 05/08/17 07:55 Dose: 4 mg Oxycodone HCl (Roxicodone *Ir*) 5 - 10 mg PO Q4HPRN PRN PRN Reason: Pain Last Admin: 05/08/17 07:55 Dose: 10 mg Polyethylene Glycol (Miralax) 17 gm PO DAILY PRN PRN Reason: Constipation Promethazine HCl (Phenergan Inj) 25 mg IVP Q4H PRN PRN Reason: NAUSEA & VOMITING Last Admin: 05/08/17 11:54 Dose: 25 mg Saliva Substitute (Biotene Moisturizing Mouth [place]) 4 spray PO QID PRN PRN Reason: Dry mouth Comments: Pt on TPN, has a large open wound on the abdomen. On Oxy IR prn. Pain is 7-8/ 10. Has christine catheter. WBC 14.4, Hgb 9. Wound care team on board, decub to sacrum. Diet: on TPN 75 cc/hour. Will try Boost Benito, V8. - Physical Therapy Comments: Max assist with ambulation and transfers. Increased from 2 feet to 6 feet today. Needs a lot of encouragement. - Occupational Therapy Lower Body Dressing Comment: SBA for groomin, Mod assist for bathing and lower body dressing. Unsafe for toilet transfer. Needs encouragment and then will participate. - Care Plan Anticipated Length of Stay: 7 Anticipated DC Destination: Home, Self Care Interventions/Goals: Barriers to discharge: pain, motivation, participation, nausea Goals: speech screen, consistent transferring schedule, improved motivation, contracture boot
[2017-05-08] MEDS: FAT EMULSION 20% 100 ML IV SCH (17:47)
[2017-05-09] MEDS: Oxycodone *IR* 5 MG TABLET PO PRN ×3 (00:53→21:09)
[2017-05-09] MEDS: PROMETHAZINE 25 MG INJECTION IVP PRN (08:26)
[2017-05-09] MEDS: [UNRECOGNIZED DRUG - OTHER] IV SCH (09:16)
[2017-05-09] MEDS: MULTI VIT INFUSION IV SCH (09:16)
[2017-05-09] MEDS: SODIUM CHLORIDE IV SCH ×2 (09:16→15:41)
[2017-05-09] MEDS: MULTI TRACE ELEMENTS IV SCH (09:16)
[2017-05-09] MEDS: MICONAZOLE 2% POWDER 45gm TP SCH (09:28)
[2017-05-09] MEDS: TIGECYCLINE 50 MG in NS 100 ML IV SCH ×2 (09:28→21:11)
[2017-05-09] MEDS: CETIRIZINE 10 MG TABLET PO SCH (09:29)
[2017-05-09] MEDS: ENOXAPARIN 40 MG/0.4 ML INJECTION SQ SCH (09:30)
--- NOTE | 2017-05-09 09:55 | Progress Note ---
<Marisa Kay - Last Filed: 05/09/17 09:41> Subjective: Emilia is seen today in follow up for her generalized debility and open abdominal wound. She reports that she had a good night, though dislikes being woken up every 2 hours to be repositioned. She states this morning she has severe abdominal pain, rating 8/10, identical to her chronic abdominal pain as well as nausea. She states that she has vomited several times this morning, all after drinking small amounts of liquids. She received Phenergan this morning prior to exam and has not vomited since. She states she felt this way yesterday morning too but it improved as the day progressed. She states she does not have much of an appetite and continues to receive TPN at 50cc/hr which is being managed by pharmacy. Discussed at length with her the importance of working together as a team to help her achieve her goal of going home. Reviewed with her the accomplishment of certain goals in order to be able to discharge home, including ability to ambulate short distances and toilet self. Also discussed the increased risk of infection with prolonged Mills placement. Patient was hesitant to have her Mills catheter discontinued, questioning how she would make it to the bathroom, and again, she was reminded that she would need to be able to do this in order to discharge home and how she was recently admitted in [place] for sepsis and UTI. Therapy states she had a good day yesterday and was able to ambulate 6 steps. Will provide a commode initially to assist with toileting. Her abdominal dressing was changed this morning by wound care. Overall, she is making slow gains and requires significant encouragement. On exam, she is seen immediately after returning to her room from breakfast. She is sitting in her wheelchair and therapy is present. She is alert and orientated x 3 and appears uncomfortable, as she is leaning forward in her chair. Cardiac exam reveals tachycardia. Lungs are clear to auscultation bilaterally. Abdomen is soft with active bowel sounds. Abdominal dressing is clean, dry and intact. No edema noted to lower extremities. Coccyx wound was not visualized at this time and being managed by wound team. Labs on 05/08 were reviewed and indicate persistent leukocytosis with WBC 14.4, persistent anemia with hemoglobin 9.3 and platelets 402. BMP from today revealed sodium 139, potassium 4.3, slight down trending of BUN at 59, SCr 0.8 and glucose 99. Phosphorus remains elevated at 4.9 Prealbumin is low at 8.5. Objective Vital signs: Temperature 97.9 F 05/08/17 19:27 Pulse Rate 102 H 05/08/17 19:27 Respiratory Rate 14 05/08/17 19:27 Blood Pressure 103/67 05/08/17 19:27 Pulse Oximetry 100 05/08/17 19:27 Oxygen Delivery Method Room Air Fraction of Inspired Oxygen 21 Body Mass Index: 26.2 - Constitutional Present: mild distress, cooperative Comments: argumentative at times. - Routine HEENT Exam Head: Present: normocephalic, atraumatic Eye: Present: PERRL. Absent: conjunctival icterus ENT: Present: mucous membranes moist - Routine Respiratory Exam Present: CTA bilaterally. Absent: stridor, wheezes, crackles - Routine Cardiovascular Exam Present: S1, S2, tachycardia - Routine Abdominal Exam Present: soft, normoactive bowel sounds Comments: open abdominal wound with dressing present that is clean, dry and intact. - Routine Extremities Exam Present: no edema, pulses intact. Absent: cyanosis, clubbing - Routine Back/Spine/Pelvis Exam Back/Spine: Present: full ROM. Absent: erythema Comments: no coccyx wound - not visualized on exam. - Routine Musculoskeletal Exam Musculoskeletal: Present: no clubbing or cyanosis, no erythema, moving extremities well - Routine Skin Exam Present: dry, warm. Absent: jaundice Comments: afebrile - Routine Neurological Exam Present: alert, oriented X3, moving all extremities, normal speech. Absent: facial asymmetry - Routine Lymphatic Exam Lymphatic: Absent: lymphedema - Routine Psychiatric Exam Present: cooperative Comments: argumentative Results - Labs CBC & Chem 7: 05/08/17 04:12 05/09/17 04:59 Assessment and Plan (1) Open abdominal wall wound Current visit: Yes Status: Chronic (2) Myopathy Problem details: Critical illness myopathy Current visit: Yes Status: Acute DVT Prophylaxis: Lovenox Resuscitation Status: Full Code Assessment and Plan: 05/09/17 - Eliza. Impression: Generalized debility and myopathy secondary to prolonged hospitalizations, acute. * Continue to encourage participation in therapies as patient's goal is to return home with the ability to dress self and ambulate short distances. Therapy reports that she has been doing well and was able to walk 6 steps yesterday. Continue to provide safe and supportive environment. Recent sepsis secondary to E. faecalis CLABSI and recurrent peritonitis due to enteric leak, acute. * Continue tigecycline per Dr. Lewis, to be completed on 05/19. Will discontinue Mills catheter today. Will provide a commode initially to encourage successful toileting until patient strength and endurance improved. Leukocytosis, persistent, present on admission. * WBC on admission 14.4. Continue to monitor trends periodically throughout admission. Patient remains afebrile and WBC trending down as compared to prior recent labs from previous admission. Recheck CBC in AM to monitor blood count trends. Hyperphosphoremia, acute. * Phosphorus elevated at 4.9. Pharmacy notified and will adjust TPN. Will recheck in AM as well as BMP to monitor electrolytes and renal function and continue to monitor trends. Anemia, chronic secondary to chronic disease. * Present on admission with hemoglobin 9.3. Improved from prior admissions. Monitor periodically throughout admission. Moderate protein calorie malnutrition, chronic. * Prealbumin 8.5 on admission. Continue TPN per pharmacy. As patient continues to vomit with large amounts of fluids orally, recommend providing no more than 150cc liquid at a time and encourage slow, small, frequent sips. Encourage boost as able. Hypertension, chronic. * Blood pressures well controlled and borderline low at times. Continue to monitor closely. Diabetes, chronic. * Continue to monitor BGMs, especially in light of TPN. Sliding scale insulin as indicated. Intractable abdominal pain and nausea with draining abdominal wound, chronic. * Pain control per Dr. Woo. Continue Zofran and Phenergan for nausea/ vomiting. Decubitus ulcer, coccyx, chronic. * Wound care team to continue to monitor. Monitor closely for signs of worsening. Continue to encourage patient to do position adjustments frequently , at least Q2 hours. Pancreatic pseudocyst, chronic. * Unsuccessful attempt for endoscopic cyst gastrostomy for drainage on 05/01/17. Metastatic neuroendocrine tumor, s/p resection, chronic. - Time spent with patient 25 - 35 minutes Coordination of Care: >50% of visit spent providing counseling/coordination of care Sepsis Assessment - Evaluation Sepsis screening result: No Definite Risk Hospital Course Summary Disclaimer: The visit summary below is not to be considered part of the above Progress Note. Hospital Course: 05/09/17 10:24 Impression: Generalized debility and myopathy secondary to prolonged hospitalizations, acute. * Continue to encourage participation in therapies as patient's goal is to return home with the ability to dress self and ambulate short distances. Therapy reports that she has been doing well and was able to walk 6 steps yesterday. Continue to provide safe and supportive environment. Recent sepsis secondary to E. faecalis CLABSI and recurrent peritonitis due to enteric leak, acute. * Continue tigecycline per Dr. Lewis, to be completed on 05/19. Will discontinue Mills catheter today. Will provide a commode initially to encourage successful toileting until patient strength and endurance improved. Leukocytosis, persistent, present on admission. * WBC on admission 14.4. Continue to monitor trends periodically throughout admission. Patient remains afebrile and WBC trending down as compared to prior recent labs from previous admission. Recheck CBC in AM to monitor blood count trends. Hyperphosphoremia, acute. * Phosphorus elevated at 4.9. Pharmacy notified and will adjust TPN. Will recheck in AM as well as BMP to monitor electrolytes and renal function and continue to monitor trends. Anemia, chronic secondary to chronic disease. * Present on admission with hemoglobin 9.3. Improved from prior admissions. Monitor periodically throughout admission. Moderate protein calorie malnutrition, chronic. * Prealbumin 8.5 on admission. Continue TPN per pharmacy. As patient continues to vomit with large amounts of fluids orally, recommend providing no more than 150cc liquid at a time and encourage slow, small, frequent sips. Encourage boost as able. Hypertension, chronic. * Blood pressures well controlled and borderline low at times. Continue to monitor closely. Diabetes, chronic. * Continue to monitor BGMs, especially in light of TPN. Sliding scale insulin as indicated. Intractable abdominal pain and nausea with draining abdominal wound, chronic. * Pain control per Dr. Woo. Continue Zofran and Phenergan for nausea/ vomiting. Decubitus ulcer, coccyx, chronic. * Wound care team to continue to monitor. Monitor closely for signs of worsening. Continue to encourage patient to do position adjustments frequently , at least Q2 hours. Pancreatic pseudocyst, chronic. * Unsuccessful attempt for endoscopic cyst gastrostomy for drainage on 05/01/17. Metastatic neuroendocrine tumor, s/p resection, chronic. <Yaz Olivier - Last Filed: 08/09/17 20:07> Objective Vital signs: Temperature 98.5 F 05/09/17 16:00 Pulse Rate 107 H 05/09/17 16:00 Respiratory Rate 20 05/09/17 16:00 Blood Pressure 115/74 05/09/17 16:00 Pulse Oximetry 100 05/09/17 16:00 Oxygen Delivery Method Room Air Fraction of Inspired Oxygen 21 Results - Labs CBC & Chem 7: 05/08/17 04:12 05/09/17 04:59 Assessment and Plan (1) Open abdominal wall wound Current visit: Yes Status: Chronic (2) Myopathy Problem details: Critical illness myopathy Current visit: Yes Status: Acute Assessment and Plan: 05/09/2017-I reviewed this chart, the patient history, and the [employer]'s/PA's documented findings as above. We discussed and formulated the assessment and plan as above with the additions below. I've seen and examined the patient independently.-Dr. Olivier The patient states that she is doing okay. She is having some chronic abdominal pain but it is better this evening. She denies any shortness of breath or chest pain. She denies any current nausea. Mills catheter was removed and at the time that I saw her she had not urinated, but afterward she did have a large incontinence of urine. Bladder scan afterward showed about 150 ML's of urine present. She does not have bowel movements since she is nothing by mouth except for fluids. Vital signs were reviewed. She has a borderline mild tachycardia which on review of view [facility] records was present there as well. She has not had any fever. Blood pressure is okay. On exam the patient is mildly drowsy but in no acute distress. Oropharynx is moist. Neck is supple. Chest is clear to auscultation. Cardiovascular reveals a regular rhythm and a borderline tachycardic rate. Abdomen reveals an open abdominal wound with a clear dressing. There is some yellowish drainage. Extremities are free of edema. SCDs are in place. Regarding sepsis, continue current antibiotics. Regarding the patient's recent sepsis likely from abdominal source, will consult Dr. Puente to see the patient on Sunday. We'll continue to monitor white count. Continue TPN for malnutrition. Continue to monitor hemoglobin regarding anemia. Regarding acute kidney injury, the patient was seeing Dr. Massimo Pina at [facility]. Her BUN over the past week was ranging from 59-85. I did discontinue ibuprofen that was started here to prevent worsening of acute kidney injury. We' ll need to monitor renal function and fluid status carefully, especially with Mills catheter out. 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 I did discuss the importance of accurate I&O's as much as is possible with her incontinence We'll monitor vital signs frequently and call parameters were placed We'll continue to monitor lab work fairly frequently. Hospital Course Summary Disclaimer: The visit summary below is not to be considered part of the above Progress Note.
--- NOTE | 2017-05-09 10:23 | IRU Progress Note ---
- Subjective/Serverity of Illness Laura is evaluated in her room. She continues to cooperate with therapy but with a lot of encouragement. She frequently is complaining of abdominal discomfort and requests therapy. Postponed. She is transferring with maximal assistance. She is able to ambulate 6 feet. Requires maximal assistance for many activities. With regard to her medical issues, we appreciate the hospitalist's assistance. The following issues were noted: 1. Protein calorie malnutrition: Her prealbumin is 8.5. Her albumin itself is 2.5. She does have at least moderate protein calorie malnutrition chronically. She is on TPN. She has a lot of loss of protein no down through her abdominal wound. 2. Recent sepsis. Her pro-calcitonin was monitored in [place] and did go up. Dr. Marcial Lewis is her infectious disease doctor and he recommended continuing tigecycline through May 19. It continues at present. Tolerating it reasonably well but does have some nausea which is a common side effect. 3. Leukocytosis: It is stable 4. Chronic anemia 5. Chronic abdominal pain. She has agreed to utilize the patch (on fentanyl 25+ 50 g equal 75 g every 3 days) and oral medication only. We are withholding intravenous pain medication. Exam Vital Signs: Temperature 98.7 F 05/09/17 09:49 Pulse Rate 83 05/09/17 09:49 Respiratory Rate 20 05/09/17 09:49 Blood Pressure 99/66 05/09/17 09:49 Pulse Oximetry 99 05/09/17 09:49 Oxygen Delivery Method Room Air Fraction of Inspired Oxygen 21 Height: 1.57 m Weight: 65 kg Body Mass Index: 26.2 - Constitutional Present: moderate distress Comments: The patient is awake, alert and oriented and in no acute distress. Pupils are equal. The neck is supple. Chest: Clear to auscultation bilaterally. Cor: RR with no maria elena, click nor murmur Abd: firm with normo-active bowel sounds. She is chronically tender in the abdomen. Extremities: No edema is noted. There are good pulses in both ankles. No cyanosis is present. The patient's wound on her abdomen is leaking a bit. The appearance has not changed. Cognitively she is alert but frequently complains of abd pain and wants to avoid therapy. She reluctantly agrees to participate. Results IRU - Labs Labs: Reviewed laboratory including prealbumin 8.5, albumin 2.5, white count and hemoglobin. Sepsis Assessment - Evaluation Sepsis screening result: No Definite Risk IRU A/P (1) Myopathy Problem details: Critical illness myopathy Current visit: Yes Status: Acute Continues to have evidence for critical illness myopathy with muscle wasting etc. Continue working with therapy as she allows. (2) Open abdominal wall wound Qualifiers: Encounter type: subsequent encounter Qualified Code(s): S31.109D - Unspecified open wound of abdominal wall, unspecified quadrant without penetration into peritoneal cavity, subsequent encounter Current visit: Yes Status: Chronic Abdominal wound unchanged. Suction applied. (3) Diabetes Qualifiers: Diabetes mellitus type: due to underlying condition Diabetes mellitus complication status: without complication Diabetes mellitus [facility] insulin use: without extermination inspector use Qualified Code(s): E08.9 - Diabetes mellitus due to underlying condition without complications Current visit: No Status: Chronic Blood sugars are stable. Patient remains on TPN. DVT Prophylaxis: SCD's, Lovenox Resuscitation Status: Full Code - Course Hospital Course: Yevgeniy Woo MD: 05/08/17 10:09 Initiating physical therapy and occupational therapy. Patient is cooperative this morning. Complains of chronic abdominal pain. Limiting oral intake in an effort to reduce leakage from the wound and allow patient to participate in therapy. She would like to increase the restriction from 120 up to 150 ML per hour. This will be allowed. This is excluding intake at mealtime. We will leave a cup at her bedside and I asked her to simply sip on this and not take it all at once. She agreed to do this. White count 14,000 but without evidence of active infection. She remains afebrile. Pain management is with patches and oral agents only. 05/09/17 11:50 Continues to require significant encouragement to participate with therapy. Walked 6 ft. Abd pain is remaining as ongoing pain issue. Protein calorie malnutrition addressed with TPN. - Interventions to Obtain Goals PT Treatment Plan: Balance/Proprioception, Functional Activities, Gait Training , Patient/Family Education, Therapeutic Exercise OT Treatment Plan: ADL (Basic Care), Balance Training, Pt./Family Education, UE Functional Training Goals Progress/Modifications: Discussed with Laura the importance of cooperation with therapies. Discussed her pain management. Reviewed all labs and coordinated therapies and medical management issues. Questions addressed.
--- NOTE | 2017-05-09 10:46 | Pharmacy Consult-TPN/PPN ---
Pharmacy Consult-TPN/PPN - Laboratory Information Chemistry Turbidity < 20 (0-20) 05/09/17 04:59 Sodium 137 MEQ/L (134-144) 05/09/17 04:59 Potassium 4.3 MEQ/L (3.6-5) 05/09/17 04:59 Chloride 107 MEQ/L (98-107) 05/09/17 04:59 Carbon Dioxide 23 MEQ/L (22-30) 05/09/17 04:59 Anion Gap 7 MEQ/L (5-15) 05/09/17 04:59 BUN 59.0 MG/DL (7-17) H* 05/09/17 04:59 Creatinine 0.8 MG/DL (0.7-1.2) 05/09/17 04:59 GFR Calculation 79 05/09/17 04:59 BUN/Creatinine Ratio 74 RATIO (6-26) H 05/09/17 04:59 Glucose 99 MG/DL (65-110) 05/09/17 04:59 Calculated Osmolality 281 MOSM/KG (261-280) H 05/09/17 04:59 Calcium 8.4 MG/DL (8.4-10.2) 05/09/17 04:59 Phosphorus 4.9 MG/DL (2.5-4.5) H 05/09/17 04:59 Magnesium 1.8 MG/DL (1.6-2.3) 05/07/17 15:45 Total Bilirubin 1.20 MG/DL (0.20-1.30) 05/07/17 15:45 Icterus Index < 2 (0-7) 05/09/17 04:59 AST 79 U/L (14-36) H 05/07/17 15:45 ALT 80 U/L (9-52) H 05/07/17 15:45 Alkaline Phosphatase 553 U/L (38-126) H 05/07/17 15:45 Total Protein 7.2 G/DL (6.3-8.2) 05/07/17 15:45 Albumin 2.5 G/DL (3.5-5.0) L 05/07/17 15:45 Globulin 4.7 G/DL (2.4-3.6) H 05/07/17 15:45 Albumin/Globulin Ratio 0.5 RATIO (1.1-2.2) L 05/07/17 15:45 Prealbumin 8.5 MG/DL (17.6-36.0) L 05/09/17 04:59 Specimen Hemolysis < 15 (0-25) 05/09/17 04:59 Intake and Output 05/08/17 05/09/17 05/10/17 06:59 06:59 06:59 Intake Total 220 / 220 1130 / 1130 120 / 120 Output Total 950 / 950 1125 / 1125 475 / 475 Balance -730 / -730 5 / 5 -355 / -355 Weight 65 kg Intake: IV 100 / 100 200 / 200 Intralipid 20% 100 ml @ 100 / 100 50 mls/hr IV 1600 [facility] Rx# :[id number] Tygacil 50 mg In Normal 200 / 200 Saline 100 ml @ 100 mls/ hr IV Q12H [facility] Rx#: [id number] Oral 120 / 120 930 / 930 120 / 120 Output: Emesis 550 / 550 250 / 250 Urine Amount (Catheter) 950 / 950 575 / 575 225 / 225 - Consult Information We will change standard TPN formula to custom TPN formula to remove all phosphate. The other electrolytes will reflect the standard TPN formula. Continue same rate of 75ml per hour. Thanks
[2017-05-09] MEDS ORDERED: FALL RISK - PHARMACY CONSULT MC PRN (10:55)
[2017-05-09] MEDS: ONDANSETRON ODT 4 MG TABLET PO PRN (12:24)
[2017-05-09] MEDS: POTASSIUM CHLORIDE IV SCH (15:41)
[2017-05-09] MEDS: [UNRECOGNIZED DRUG - OTHER] IV SCH (15:41)
[2017-05-09] MEDS: SODIUM ACETATE IV SCH (15:41)
[2017-05-09] MEDS: FAT EMULSION 20% 100 ML IV SCH (15:42)
[2017-05-09] MEDS ORDERED: SODIUM CHLORIDE IV SCH (16:01)
[2017-05-09] MEDS ORDERED: SODIUM ACETATE IV SCH (16:01)
[2017-05-09] MEDS ORDERED: POTASSIUM CHLORIDE IV SCH (16:01)
[2017-05-09] MEDS ORDERED: [UNRECOGNIZED DRUG - OTHER] IV SCH (16:01)
[2017-05-10] MEDS: Oxycodone *IR* 5 MG TABLET PO PRN ×4 (02:35→17:44)
[2017-05-10] MEDS: ONDANSETRON ODT 4 MG TABLET PO PRN ×3 (02:35→17:44)
[2017-05-10] MEDS: MICONAZOLE 2% POWDER 45gm TP SCH ×3 (02:47→22:12)
[2017-05-10] MEDS: CETIRIZINE 10 MG TABLET PO SCH (09:39)
--- NOTE | 2017-05-10 09:39 | Pharmacy Consult-TPN/PPN ---
Pharmacy Consult-TPN/PPN - Laboratory Information Chemistry Turbidity < 20 (0-20) 05/10/17 04:48 Sodium 136 MEQ/L (134-144) 05/10/17 04:48 Potassium 3.9 MEQ/L (3.6-5) 05/10/17 04:48 Chloride 106 MEQ/L (98-107) 05/10/17 04:48 Carbon Dioxide 24 MEQ/L (22-30) 05/10/17 04:48 Anion Gap 6 MEQ/L (5-15) 05/10/17 04:48 BUN 51.0 MG/DL (7-17) H* 05/10/17 04:48 Creatinine 0.8 MG/DL (0.7-1.2) 05/10/17 04:48 GFR Calculation 79 05/10/17 04:48 BUN/Creatinine Ratio 64 RATIO (6-26) H 05/10/17 04:48 Glucose 92 MG/DL (65-110) 05/10/17 04:48 Calculated Osmolality 276 MOSM/KG (261-280) 05/10/17 04:48 Calcium 8.2 MG/DL (8.4-10.2) L 05/10/17 04:48 Phosphorus 3.8 MG/DL (2.5-4.5) 05/10/17 04:48 Magnesium 2.1 MG/DL (1.6-2.3) 05/10/17 04:48 Total Bilirubin 1.20 MG/DL (0.20-1.30) 05/07/17 15:45 Icterus Index < 2 (0-7) 05/10/17 04:48 AST 79 U/L (14-36) H 05/07/17 15:45 ALT 80 U/L (9-52) H 05/07/17 15:45 Alkaline Phosphatase 553 U/L (38-126) H 05/07/17 15:45 Total Protein 7.2 G/DL (6.3-8.2) 05/07/17 15:45 Albumin 2.5 G/DL (3.5-5.0) L 05/07/17 15:45 Globulin 4.7 G/DL (2.4-3.6) H 05/07/17 15:45 Albumin/Globulin Ratio 0.5 RATIO (1.1-2.2) L 05/07/17 15:45 Prealbumin 8.5 MG/DL (17.6-36.0) L 05/09/17 04:59 Specimen Hemolysis < 15 (0-25) 05/10/17 04:48 Intake and Output 05/09/17 05/10/17 05/11/17 06:59 06:59 06:59 Intake Total 1130 / 1130 1940 / 1940 Output Total 1125 / 1125 2275 / 2275 Balance 5 / 5 -335 / -335 Weight 65 kg Intake: IV 200 / 200 400 / 400 Intralipid 20% 100 ml @ 200 / 200 50 mls/hr IV 1600 SEAN Rx# :[id number] Tygacil 50 mg In Normal 200 / 200 200 / 200 Saline 100 ml @ 100 mls/ hr IV Q12H SEAN Rx#: [id number] Oral 930 / 930 1540 / 1540 Output: Stool 1800 / 1800 Emesis 550 / 550 250 / 250 Urine Amount (Catheter) 575 / 575 225 / 225 Other: # Voids 1 # Unmeasured Emesis 1 Episodes - Consult Information Will continue current formula running at 75 mls/hr. Thank you.
[2017-05-10] MEDS: ENOXAPARIN 40 MG/0.4 ML INJECTION SQ SCH (09:45)
[2017-05-10] MEDS: TIGECYCLINE 50 MG in NS 100 ML IV SCH ×2 (09:46→22:13)
--- NOTE | 2017-05-10 11:19 | IRU Progress Note ---
- Subjective/Serverity of Illness Laura reports that she had nausea and vomiting again this morning. Continues to complain of chronic abdominal pain which is not new. Have reviewed therapy notes. She is variably cooperating with therapy. She frequently makes excuses and does not want to participate. However ultimately she does participate. She is walking now 8 feet. Has very poor safety awareness. She is improving with regard to lower extremity dressing and with regard to transfers. 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 In addition, the pain and the nausea continued to be issues for her. Exam Vital Signs: Temperature 99.7 F 05/10/17 08:20 Pulse Rate 102 H 05/10/17 08:20 Respiratory Rate 20 05/10/17 08:20 Blood Pressure 96/66 05/10/17 08:20 Pulse Oximetry 96 05/10/17 08:20 Oxygen Delivery Method Room Air Fraction of Inspired Oxygen 21 Height: 1.57 m Weight: 65 kg Body Mass Index: 26.2 - Constitutional Present: moderate distress Comments: The patient is awake, alert and oriented and in some acute distress. Continues to complain of pain fairly chronically. Has better eye contact. Pupils are equal. The neck is supple. Chest: Clear to auscultation bilaterally. Cor: RR with no maria elena, click nor murmur Abd: The abdomen remains firm. It is diffusely tender. Wound is unchanged. Bowel sounds are present and normoactive. Extremities: No edema is noted. Does have foot drop and atrophy. Muscle weakness noted.. Results IRU - Labs Labs: Reviewed recent lab. White count 13,000. Continues to be anemic. Sepsis Assessment - Evaluation Sepsis screening result: No Definite Risk IRU A/P (1) Myopathy Problem details: Critical illness myopathy Current visit: Yes Status: Acute Has severe muscle weakness. Has some foot drop as well. Displays evidence of atrophy. Working with therapist but has many excuses not to. Improving with regard to transfers, lower extremity dressing and walking. However significant safety awareness issues remain. (2) Open abdominal wall wound Qualifiers: Encounter type: subsequent encounter Qualified Code(s): S31.109D - Unspecified open wound of abdominal wall, unspecified quadrant without penetration into peritoneal cavity, subsequent encounter Current visit: Yes Status: Chronic Wound appears about the same at this time. (3) Diabetes Qualifiers: Diabetes mellitus type: due to underlying condition Diabetes mellitus complication status: without complication Diabetes mellitus terminal carman insulin use: without terminal carman use Qualified Code(s): E08.9 - Diabetes mellitus due to underlying condition without complications Current visit: No Status: Chronic Stable and per hospitalists DVT Prophylaxis: SCD's, Lovenox Resuscitation Status: Full Code - Course Hospital Course: Yevgeniy Woo MD: 05/08/17 10:09 Initiating physical therapy and occupational therapy. Patient is cooperative this morning. Complains of chronic abdominal pain. Limiting oral intake in an effort to reduce leakage from the wound and allow patient to participate in therapy. She would like to increase the restriction from 120 up to 150 ML per hour. This will be allowed. This is excluding intake at mealtime. We will leave a cup at her bedside and I asked her to simply sip on this and not take it all at once. She agreed to do this. White count 14,000 but without evidence of active infection. She remains afebrile. Pain management is with patches and oral agents only. 05/09/17 11:50 Continues to require significant encouragement to participate with therapy. Walked 6 ft. Abd pain is remaining as ongoing pain issue. Protein calorie malnutrition addressed with TPN. 05/10/17 11:19 She is making slow progress. White count improved to 13,000. Appreciate hospitalists assistance. Lower extremity dressing is improved. Walking distance improved. Transfers minimally improved. Significant concerns about patient motivation and safety awareness remains. Abdominal pain, nausea and vomiting impact her therapy progress. - Interventions to Obtain Goals PT Treatment Plan: Balance/Proprioception, Functional Activities, Gait Training , Patient/Family Education, Therapeutic Exercise OT Treatment Plan: ADL (Basic Care), Balance Training, Pt./Family Education, UE Functional Training
--- NOTE | 2017-05-10 16:06 | Progress Note ---
Objective Vital signs: Temperature 98.8 F 05/10/17 12:35 Pulse Rate 112 H 05/10/17 12:35 Respiratory Rate 16 05/10/17 12:35 Blood Pressure 95/65 05/10/17 12:35 Pulse Oximetry 100 05/10/17 12:35 Oxygen Delivery Method Room Air Fraction of Inspired Oxygen 21 Body Mass Index: 26.2 Results - Labs CBC & Chem 7: 05/10/17 04:48 05/10/17 04:48 Assessment and Plan (1) Myopathy Problem details: Critical illness myopathy Current visit: Yes Status: Acute (2) Open abdominal wall wound Current visit: Yes Status: Chronic Assessment and Plan: 05/09/2017-I reviewed this chart, the patient history, and the RN POSTPARTUM's/PA's documented findings as above. We discussed and formulated the assessment and plan as above with the additions below. I've seen and examined the patient independently.-Dr. Olivier The patient states that she is doing okay. She is having some chronic abdominal pain but it is better this evening. She denies any shortness of breath or chest pain. She denies any current nausea. Mills catheter was removed and at the time that I saw her she had not urinated, but afterward she did have a large incontinence of urine. Bladder scan afterward showed about 150 ML's of urine present. She does not have bowel movements since she is nothing by mouth except for fluids. Vital signs were reviewed. She has a borderline mild tachycardia which on review of view [facility] records was present there as well. She has not had any fever. Blood pressure is okay. On exam the patient is mildly drowsy but in no acute distress. Oropharynx is moist. Neck is supple. Chest is clear to auscultation. Cardiovascular reveals a regular rhythm and a borderline tachycardic rate. Abdomen reveals an open abdominal wound with a clear dressing. There is some yellowish drainage. Extremities are free of edema. SCDs are in place. Regarding sepsis, continue current antibiotics. Regarding the patient's recent sepsis likely from abdominal source, will consult Dr. Puente to see the patient on Sunday. We'll continue to monitor white count. Continue TPN for malnutrition. Continue to monitor hemoglobin regarding anemia. Regarding acute kidney injury, the patient was seeing Dr. Massimo Pina at via [facility]. Her BUN over the past week was ranging from 59-85. I did discontinue ibuprofen that was started here to prevent worsening of acute kidney injury. We' ll need to monitor renal function and fluid status carefully, especially with Mills catheter out. 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 I did discuss the importance of accurate I&O's as much as is possible with her incontinence We'll monitor vital signs frequently and call parameters were placed We'll continue to monitor lab work fairly frequently. Sepsis Assessment - Evaluation Sepsis screening result: No Definite Risk Hospital Course Summary Disclaimer: The visit summary below is not to be considered part of the above Progress Note. Hospital Course: 05/09/17 10:24 Impression: Generalized debility and myopathy secondary to prolonged hospitalizations, acute. * Continue to encourage participation in therapies as patient's goal is to return home with the ability to dress self and ambulate short distances. Therapy reports that she has been doing well and was able to walk 6 steps yesterday. Continue to provide safe and supportive environment. Recent sepsis secondary to E. faecalis CLABSI and recurrent peritonitis due to enteric leak, acute. * Continue tigecycline per Dr. Lewis, to be completed on 05/19. Will discontinue Mills catheter today. Will provide a commode initially to encourage successful toileting until patient strength and endurance improved. Leukocytosis, persistent, present on admission. * WBC on admission 14.4. Continue to monitor trends periodically throughout admission. Patient remains afebrile and WBC trending down as compared to prior recent labs from previous admission. Recheck CBC in AM to monitor blood count trends. Hyperphosphoremia, acute. * Phosphorus elevated at 4.9. Pharmacy notified and will adjust TPN. Will recheck in AM as well as BMP to monitor electrolytes and renal function and continue to monitor trends. Anemia, chronic secondary to chronic disease. * Present on admission with hemoglobin 9.3. Improved from prior admissions. Monitor periodically throughout admission. Moderate protein calorie malnutrition, chronic. * Prealbumin 8.5 on admission. Continue TPN per pharmacy. As patient continues to vomit with large amounts of fluids orally, recommend providing no more than 150cc liquid at a time and encourage slow, small, frequent sips. Encourage boost as able. Hypertension, chronic. * Blood pressures well controlled and borderline low at times. Continue to monitor closely. Diabetes, chronic. * Continue to monitor BGMs, especially in light of TPN. Sliding scale insulin as indicated. Intractable abdominal pain and nausea with draining abdominal wound, chronic. * Pain control per Dr. Woo. Continue Zofran and Phenergan for nausea/ vomiting. Decubitus ulcer, coccyx, chronic. * Wound care team to continue to monitor. Monitor closely for signs of worsening. Continue to encourage patient to do position adjustments frequently , at least Q2 hours. Pancreatic pseudocyst, chronic. * Unsuccessful attempt for endoscopic cyst gastrostomy for drainage on 05/01/17. Metastatic neuroendocrine tumor, s/p resection, chronic.
[2017-05-10] MEDS: SODIUM ACETATE IV SCH (17:14)
[2017-05-10] MEDS: [UNRECOGNIZED DRUG - OTHER] IV SCH (17:14)
[2017-05-10] MEDS: SODIUM CHLORIDE IV SCH (17:14)
[2017-05-10] MEDS: POTASSIUM CHLORIDE IV SCH (17:14)
[2017-05-10] MEDS: FAT EMULSION 20% 100 ML IV SCH (17:16)
[2017-05-10] MEDS: NS 1,000 ML IV SCH (17:44)
--- NOTE | 2017-05-10 19:25 | Progress Note ---
Subjective: The patient was seen earlier this evening in her room. She states she did well with therapy and was able to walk pretty well. She complained of abdominal pain with walking. She states she occasionally feels a little lightheaded when she is up walking. Mills catheter was removed yesterday and she has had some large incontinence episodes which cannot be measured. She's also had some urination in the bedside commode. She denies any nausea currently. Objective Vital signs: Temperature 98.4 F 05/10/17 16:00 Pulse Rate 104 H 05/10/17 16:00 Respiratory Rate 16 05/10/17 16:00 Blood Pressure 109/66 05/10/17 16:00 Pulse Oximetry 100 05/10/17 16:00 Oxygen Delivery Method Room Air Fraction of Inspired Oxygen 21 Body Mass Index: 26.2 Comments: The patient has had increased oral intake today. Systolic blood pressure has ranged from 95-109 Heart rate has ranged from 99-112 MAXIMUM TEMPERATURE is 99.7 She continues to have large amounts of output from her abdominal wound, today recorded as 2000 L so far GEN-mildly drowsy but arousable, no acute distress HEENT-sclera anicteric, oropharynx is moist NECK-supple CV-regular rate and rhythm CHEST-clear to auscultation bilaterally ABD-she has clear dressing over her open abdominal wound with yellowish drainage. Normal bowel sounds -Mills removed EXT-no edema NEURO-patient is able to move all 4 extremities without difficulties, no focal deficits SKIN- large open abdominal wound as discussed above. Otherwise skin is warm and dry Results - Labs CBC & Chem 7: 05/10/17 04:48 05/10/17 04:48 Assessment and Plan (1) Open abdominal wall wound Current visit: Yes Status: Chronic (2) Myopathy Problem details: Critical illness myopathy Current visit: Yes Status: Acute Assessment and Plan: 05/10/2017-Dr. Olivier Impression Open abdominal wound with large output Recent sepsis likely from abdominal source-the patient is on tigecycline and should be continued through 05/19/2017 Persistent leukocytosis Chronic anemia Elevated BUN-trending down Protein calorie malnutrition-requiring TPN Hypertension Diabetes Chronic abdominal pain secondary to draining abdominal wound Decubitus ulcer Pancreatic pseudocyst with unsuccessful attempt for endoscopic cyst stress study on 05/01/2017 History of metastatic neuroendocrine tumor, status post resection History of acute kidney injury secondary to volume depletion from high output abdominal drainage Plan Continue tigecycline. Dr. Puente has been consulted. Continue TPN. Add normal saline at 50 ML's an hour to decrease likelihood of volume depletion. Recheck BMP and CBC tomorrow. Continue to encourage participation with therapy. Recommend scheduled toileting approximately every 3 hours while awake and when necessary to decrease incontinence episodes and improve monitoring of urine output volume. Sepsis Assessment - Evaluation Sepsis screening result: No Definite Risk Hospital Course Summary Disclaimer: The visit summary below is not to be considered part of the above Progress Note. Hospital Course: 05/09/17 10:24 Impression: Generalized debility and myopathy secondary to prolonged hospitalizations, acute. * Continue to encourage participation in therapies as patient's goal is to return home with the ability to dress self and ambulate short distances. Therapy reports that she has been doing well and was able to walk 6 steps yesterday. Continue to provide safe and supportive environment. Recent sepsis secondary to E. faecalis CLABSI and recurrent peritonitis due to enteric leak, acute. * Continue tigecycline per Dr. Lewis, to be completed on 05/19. Will discontinue Mills catheter today. Will provide a commode initially to encourage successful toileting until patient strength and endurance improved. Leukocytosis, persistent, present on admission. * WBC on admission 14.4. Continue to monitor trends periodically throughout admission. Patient remains afebrile and WBC trending down as compared to prior recent labs from previous admission. Recheck CBC in AM to monitor blood count trends. Hyperphosphoremia, acute. * Phosphorus elevated at 4.9. Pharmacy notified and will adjust TPN. Will recheck in AM as well as BMP to monitor electrolytes and renal function and continue to monitor trends. Anemia, chronic secondary to chronic disease. * Present on admission with hemoglobin 9.3. Improved from prior admissions. Monitor periodically throughout admission. Moderate protein calorie malnutrition, chronic. * Prealbumin 8.5 on admission. Continue TPN per pharmacy. As patient continues to vomit with large amounts of fluids orally, recommend providing no more than 150cc liquid at a time and encourage slow, small, frequent sips. Encourage boost as able. Hypertension, chronic. * Blood pressures well controlled and borderline low at times. Continue to monitor closely. Diabetes, chronic. * Continue to monitor BGMs, especially in light of TPN. Sliding scale insulin as indicated. Intractable abdominal pain and nausea with draining abdominal wound, chronic. * Pain control per Dr. Woo. Continue Zofran and Phenergan for nausea/ vomiting. Decubitus ulcer, coccyx, chronic. * Wound care team to continue to monitor. Monitor closely for signs of worsening. Continue to encourage patient to do position adjustments frequently , at least Q2 hours. Pancreatic pseudocyst, chronic. * Unsuccessful attempt for endoscopic cyst gastrostomy for drainage on 05/01/17. Metastatic neuroendocrine tumor, s/p resection, chronic. 05/09/2017-I reviewed this chart, the patient history, and the SILK SCREEN CUTTER's/PA's documented findings as above. We discussed and formulated the assessment and plan as above with the additions below. I've seen and examined the patient independently.-Dr. Olivier The patient states that she is doing okay. She is having some chronic abdominal pain but it is better this evening. She denies any shortness of breath or chest pain. She denies any current nausea. Mills catheter was removed and at the time that I saw her she had not urinated, but afterward she did have a large incontinence of urine. Bladder scan afterward showed about 150 ML's of urine present. She does not have bowel movements since she is nothing by mouth except for fluids. Vital signs were reviewed. She has a borderline mild tachycardia which on review of view [facility] records was present there as well. She has not had any fever. Blood pressure is okay. On exam the patient is mildly drowsy but in no acute distress. Oropharynx is moist. Neck is supple. Chest is clear to auscultation. Cardiovascular reveals a regular rhythm and a borderline tachycardic rate. Abdomen reveals an open abdominal wound with a clear dressing. There is some yellowish drainage. Extremities are free of edema. SCDs are in place. Regarding sepsis, continue current antibiotics. Regarding the patient's recent sepsis likely from abdominal source, will consult Dr. Puente to see the patient on Sunday. We'll continue to monitor white count. Continue TPN for malnutrition. Continue to monitor hemoglobin regarding anemia. Regarding acute kidney injury, the patient was seeing Dr. Massimo Pina at via [facility]. Her BUN over the past week was ranging from 59-85. I did discontinue ibuprofen that was started here to prevent worsening of acute kidney injury. We' ll need to monitor renal function and fluid status carefully, especially with Mills catheter out. 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 I did discuss the importance of accurate I&O's as much as is possible with her incontinence We'll monitor vital signs frequently and call parameters were placed We'll continue to monitor lab work fairly frequently.
[2017-05-11] MEDS: ONDANSETRON ODT 4 MG TABLET PO PRN ×3 (04:47→19:06)
[2017-05-11] MEDS: Oxycodone *IR* 5 MG TABLET PO PRN ×4 (04:47→19:06)
[2017-05-11] MEDS: DiphenhydrAMINE 50 MG/ML INJECTION IVP PRN (05:02)
--- NOTE | 2017-05-11 08:03 | Pharmacy Consult-TPN/PPN ---
Pharmacy Consult-TPN/PPN - Laboratory Information Chemistry Turbidity < 20 (0-20) 05/11/17 04:54 Sodium 136 MEQ/L (134-144) 05/11/17 04:54 Potassium 3.8 MEQ/L (3.6-5) 05/11/17 04:54 Chloride 108 MEQ/L (98-107) H 05/11/17 04:54 Carbon Dioxide 23 MEQ/L (22-30) 05/11/17 04:54 Anion Gap 5 MEQ/L (5-15) 05/11/17 04:54 BUN 45.0 MG/DL (7-17) H 05/11/17 04:54 Creatinine 0.8 MG/DL (0.7-1.2) 05/11/17 04:54 GFR Calculation 79 05/11/17 04:54 BUN/Creatinine Ratio 56 RATIO (6-26) H 05/11/17 04:54 Glucose 85 MG/DL (65-110) 05/11/17 04:54 Glucometer 129 mg/dL (65-110) 05/10/17 21:45 Calculated Osmolality 273 MOSM/KG (261-280) 05/11/17 04:54 Calcium 7.9 MG/DL (8.4-10.2) L 05/11/17 04:54 Phosphorus 3.5 MG/DL (2.5-4.5) 05/11/17 04:54 Magnesium 2.1 MG/DL (1.6-2.3) 05/10/17 04:48 Total Bilirubin 1.20 MG/DL (0.20-1.30) 05/07/17 15:45 Icterus Index < 2 (0-7) 05/11/17 04:54 AST 79 U/L (14-36) H 05/07/17 15:45 ALT 80 U/L (9-52) H 05/07/17 15:45 Alkaline Phosphatase 553 U/L (38-126) H 05/07/17 15:45 Total Protein 7.2 G/DL (6.3-8.2) 05/07/17 15:45 Albumin 2.5 G/DL (3.5-5.0) L 05/07/17 15:45 Globulin 4.7 G/DL (2.4-3.6) H 05/07/17 15:45 Albumin/Globulin Ratio 0.5 RATIO (1.1-2.2) L 05/07/17 15:45 Prealbumin 8.5 MG/DL (17.6-36.0) L 05/09/17 04:59 Specimen Hemolysis < 15 (0-25) 05/11/17 04:54 Intake and Output 05/10/17 05/11/17 05/12/17 06:59 06:59 06:59 Intake Total 1940 / 1940 2786.25 / 2786.25 Output Total 2275 / 2275 3450 / 3450 Balance -335 / -335 -663.75 / -663.75 Weight 65 kg Intake: IV 400 / 400 2216.25 / 2216.25 Intralipid 20% 100 ml @ 200 / 200 100 / 100 50 mls/hr IV 1600 SEAN Rx# :[id number] Sodium Chloride Conc 4 1916.25 / 1916.25 Meq/ml Sodium Acetate 80 Meq KCl 40 Meq Magnesium Sulfate Inj 16 Meq Calcium Gluconate 9.3 Meq Infuvite Adult 10 ml Multi-Trace Elements 1 ml Folate 2 mg Vitamin B-1 100 mg In TPN - Custom Formula 2,000 ml @ 75 mls /hr IV .Q24H SEAN Rx#: [id number] Tygacil 50 mg In Normal 200 / 200 200 / 200 Saline 100 ml @ 100 mls/ hr IV Q12H SEAN Rx#: [id number] Oral 1540 / 1540 570 / 570 Output: Stool 1800 / 1800 3150 / 3150 Emesis 250 / 250 200 / 200 Urine Amount (Catheter) 225 / 225 100 / 100 Other: # Voids 1 1 # Incontinent Voids 1 # Unmeasured Emesis 1 1 Episodes - Consult Information Will substitute 20meq Kphos for KCl in today's bag. Serum phosphorus ordered for Sunday. Otherwise same formula at 75 mls/hr. Thank you.
[2017-05-11] MEDS: PROMETHAZINE 25 MG INJECTION IVP PRN (09:00)
[2017-05-11] MEDS: CETIRIZINE 10 MG TABLET PO SCH (09:14)
[2017-05-11] MEDS: MICONAZOLE 2% POWDER 45gm TP SCH (09:15)
[2017-05-11] MEDS: ENOXAPARIN 40 MG/0.4 ML INJECTION SQ SCH (09:25)
[2017-05-11] MEDS: TIGECYCLINE 50 MG in NS 100 ML IV SCH (09:25)
[2017-05-11] MEDS: NS 1,000 ML IV SCH (12:39)
--- NOTE | 2017-05-11 15:16 | Infectious Disease Consult ---
Infectious Disease Consult Date of Consultation: 05/11/17 Requesting Physician: Yaz Olivier Reason for Consultation: antibiotic recs History of Present Illness: Ms. Giron is a 41 y/o woman with a complex history and recent prolonged hospitalization at [facility]. She was initially hospitalized in July 2016. She was followed by Dr. Lewis there, but I saw her on at least 3 weekends when I was covering. 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 She has continued to have an open abdomen, and underwent STSG to this. She has a h/o rash on multiple antibiotics, including Vancomycin, Merrem, PCNs and cephalosporins. She was in [facility] hospital for quite some time. She was then moved to swing bed status at [facility] from 01/22 through 03/26. She was readmitted to [facility] on 03/26 with sepsis secondary to CLABSI with E. faecalis. Her line was removed 03/26 and the tip cx was positive for E. faecalis as well. It was sensitive to Amp and Vanco, but due to her allergies, she was treated with Tygacil for 2 weeks through 04/09, when she was transferred here to [place]. She has also been noted to have acute pancreatitis, recurrent peritonitis due to enteric leaks. She is currently on TPN. She has had a chronic indwelling christine. She was admitted to the IRU in [place] on 04/10. She had a UA checked on 04/10 which showed 10-20 WBCs, 2+ bacteria and yeast. The culture grew >100K of K. pneumoniae, which is reported to be an ESBL. Her christine was changed out twice in March, once on 04/10 and again on 04/15. Her UA was rechecked on 04/15 and it looked better. Only 5-10 WBC, no bacteria. She was started on ceftriaxone initially, but changed to levaquin on 04/15. When I saw her, she did not want to take Merrem due to her h/o rash with this in the past. She continued to have fever and elevated WBC, and was transferred back to [facility] on . Her procalcitonin was high. Blood cultures from 04/17 were negative. She was found to have a new abdominal fluid collection (4.1 x 4.1 x 4.6cm) posterior to pancreatic cyst. She underwent endoscopic cystgastrostomy 05/01 but they were unable to drain the pseudocyst. She was put on Tygacil empirically for sepsis. She was transferred back to [place] IRU on 05/[address] Lewis's last note, her Tygacil is to go through 05/19, which is a 28 day course. Today she reports that her abdominal pain is worse than it used to be, and she is having a lot of nausea just in the past 2 weeks. Her christine was removed. She says she can't tell for sure when she is urinating. Her biggest complaints are abdominal pain and nausea. It does appear that she's been participating with PT and she walked for 12 feet today. Medications Home Medications Medication Instructions Recorded Confirmed Type Acetaminophen [Acetaminophen Extra 1,000 mg PO Q6HPRN PRN 04/09/17 05/07/17 History Strength] Acetaminophen [Feverall] 650 mg RC Q4HPRN PRN 04/09/17 05/07/17 History Albuterol/Ipratropium [Duoneb] 1 unit AEROSOL QIDPRN PRN 04/09/17 05/07/17 History Cetirizine [Zyrtec] 5 mg PO DAILY 04/09/17 05/07/17 History D50w [Dextrose 50% in Water] 50 ml IV O PRN 04/09/17 05/07/17 History DiphenhydrAMINE [Benadryl] 25 mg IV Q8HPRN PRN 04/09/17 05/07/17 History FentaNYL PATCH [Duragesic Patch] 25 mcg TD Q3D 04/09/17 05/07/17 History FentaNYL PATCH [Duragesic Patch] 50 mcg TD Q3D 04/09/17 05/07/17 History Furosemide [Lasix] 20 mg IM DAILY PRN 04/09/17 05/07/17 History Glucagon [Glucagen] 1 mg IM PRN PRN 04/09/17 05/07/17 History Heparin Sodium,Porcine/Pf [Heparin 1 ml IVP BID 04/09/17 05/07/17 History Flush 10 Units/ml Syr] HydrOXYzine [Atarax] 25 mg PO QIDPRN PRN 04/09/17 05/07/17 History Hydromorphone HCl in 0.9% NaCl 0.25 mg IVP Q2HPRN PRN 04/09/17 05/07/17 History [Hydromorphone-Ns 1 mg/ml Syr] Insulin Lispro [Humalog] 0 unit SQ PRN PRN 04/09/17 05/07/17 History LORazepam INJ [Ativan Inj] 0.13 ml IM Q6HPRN PRN 04/09/17 05/07/17 History Meperidine HCl/Pf [Meperidine 25 2 ml IV Q4HPRN PRN 04/09/17 05/07/17 History mg/ml Vial] Miconazole 2% Powder [Desenex] 1 applic TP BID 04/09/17 05/07/17 History Nystatin Cream [Mycostatin] 1 applic TOP BID 04/09/17 05/07/17 History Ondansetron [Zofran Odt] 1 tab PO Q6HPRN PRN 04/09/17 05/07/17 History Oxycodone *Ir* [Roxicodone *Ir*] 5 - 10 mg PO Q4HPRN PRN 04/09/17 05/07/17 History Polyethylene Glycol 3350 17 gm PO DAILY PRN 04/09/17 05/07/17 History Saliva Substitute Mouth [place] 1 applic PO QIDPRN PRN 04/09/17 05/07/17 History [Biotene Moisturizing Mouth [place]] Ibuprofen [Motrin] 1 tab PO Q6H PRN 05/07/17 05/07/17 History Tigecycline 50 mg IV Q12H 05/07/17 05/07/17 History Allergies Allergy/AdvReac Type Severity Reaction Status Date / Time kiwi Allergy Severe Rash Verified 05/07/17 13:02 orange Allergy Severe Rash Verified 05/07/17 13:02 vancomycin Allergy Severe Rash Verified 05/07/17 13:02 Penicillins Allergy Unknown Verified 05/07/17 13:02 [facility] Patient Stated Medical History Other GI pancreatitis/open colon fistula Hx Renal Disease Yes: Hx: renal failure (post op complication) Sepsis Yes Other Infectious Yes: 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 Hx neuroendocrine tumor (resected) with hepatic metastases. 2. Hx pancreatitis. 3. Hx multiple entero-cutaneous fistulae. 4. Chronic abd pain. 5. Hx sepsis, including hx CLABSI with E. faecalis. 6. Anemia. 7. Hypertension. 8. Diabetes Surgical History: 07/10/16-resection of intra-abdominal neuroendocrine tumor from mesentary and liver, appendectomy, small bowel resection, multiple other exploratory laparotomies with further resections and ileostomy, tracheotomy. Endoscopic cystgastrostomy- 05/17 Family History: Father has diabetes and atrial fibrillation with recent RF ablation procedure. Mother has diabetes mellitus. - Social History Smoking status: Never smoker Household members: spouse Current residence: Apartment/Private Home Review of Systems - Constitutional Constitutional: Absent: chills, fever(s) - EENMT Eyes: Absent: change in vision Mouth/Throat: Present: sore throat - Cardiovascular Cardiovascular: Absent: chest pain - Respiratory Respiratory: Present: dyspnea. Absent: cough - Gastrointestinal Gastrointestinal: Present: abdominal pain (excruciating per patient), other (No BMs, she has open abdomen with high output fistulae) - Genitourinary Genitourinary: Present: difficulty urinating (she is unsure when she is urinating). Absent: dysuria Menstruation: amenorrhea (LMP 07/16. prior to surgery, she was having periods) - Musculoskeletal Musculoskeletal: Absent: arthralgias, joint swelling - Integumentary/Breasts Integumentary: Present: pruritus (chronic, takes benadryl). Absent: rash - Neurological Neurological: Absent: headache(s), numbness - Psychiatric Psychiatric: Present: depression Exam Vital Signs: Temperature 99.1 F 05/11/17 12:30 Pulse Rate 108 H 05/11/17 13:15 Respiratory Rate 24 05/11/17 12:30 Blood Pressure 108/68 05/11/17 12:30 Pulse Oximetry 99 05/11/17 13:15 Oxygen Delivery Method Room Air Fraction of Inspired Oxygen 21 Height: 1.57 m Weight: 65 kg Body Mass Index: 26.2 Comments: chronically ill-appearing - Constitutional Present: no acute distress - Routine HEENT Exam Head: Present: normocephalic, atraumatic Eye: Present: EOMI, PERRL ENT: Present: mucous membranes moist - Routine Neck Exam Present: supple - Routine Respiratory Exam Present: CTA bilaterally. Absent: accessory muscle use, respiratory distress, wheezes - Routine Cardiovascular Exam Present: RRR. 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 No distention. I didn 't listen for bowel sounds or palpate it due to her complaint of excruciating abdominal pain - Routine Exam Comments: normal external genitalia - Routine Extremities Exam Absent: edema - Routine Skin Exam Present: dry. Absent: rash - Routine Neurological Exam Present: alert, oriented X3, CN II-XII intact. Absent: motor deficit - Routine Psychiatric Exam Present: normal thought process, anxious (slightly) Results - Labs CBC & Chem 7: 05/11/17 04:54 05/11/17 04:54 Impression: IMPRESSIONS: * Recent sepsis, NOS, likely secondary to pancreatic pseudocyst, unable to be drained on 05/01. * Intra-abdominal fluid collection (4.1 x 4.1 x 4.6cm) * Leukocytosis * Nausea/vomiting, question due to Tygacil. * Abdominal pain, chronic, but worse per patient. * H/o urine culture with >100K of Kleb. pneumoniae, ESBL positive, suspect colonization. * H/o rash on Merrem, Vancomycin, PCN, cephalosporins * H/o CLABSI with E. faecalis, s/p CVL removal 03/26, treated with Tygacil (due to allergies) through 04/09. * H/o pancreatic pseudocyst/acute pancreatitis * H/o recurrent peritonitis due to enteric leaks * Colocutaneous fistula on chronic TPN * H/o bile leak s/p stent and eventual removal * Metastatic neuroendocrine tumor s/p resection * Coccyx wound * Debilitation/malnutrition Recommendation: Tygacil causes nausea in 20% of patients. She has had 3 weeks of this antibiotic. I discussed this with Dr. Lewis. He did not have a problem with stopping it. I'd treat her nausea and abdominal pain symptomatically. Monitor her temps, WBC closely. Sepsis Assessment - Evaluation Sepsis screening result: Sepsis Risk
[2017-05-11] MEDS ORDERED: SODIUM ACETATE IV SCH (16:00)
[2017-05-11] MEDS ORDERED: POTASSIUM CHLORIDE IV SCH (16:00)
[2017-05-11] MEDS ORDERED: [UNRECOGNIZED DRUG - OTHER] IV SCH (16:00)
[2017-05-11] MEDS ORDERED: SODIUM CHLORIDE IV SCH (16:00)
[2017-05-11] MEDS: FAT EMULSION 20% 100 ML IV SCH (16:46)
--- NOTE | 2017-05-11 18:57 | Progress Note ---
Subjective: The patient is seen today in her room. She states her abdomen is hurting her more today. She's had some nausea and vomiting as well. Her nurse states she is not following the recommendations of not taking in more than 150 ML's of liquid per hour orally. She is having large outputs from her abdominal wound today. She denies any chest pain or shortness of breath. She denies any headache. She is having incontinence of urine and we are not able to measure urine output. Per her nurse, she is starting to develop some erythema and possible skin breakdown secondary to incontinence. Patient does not know when she has had incontinent episodes. Objective Vital signs: Temperature 99.1 F 05/11/17 12:30 Pulse Rate 108 H 05/11/17 13:15 Respiratory Rate 24 05/11/17 12:30 Blood Pressure 108/68 05/11/17 12:30 Pulse Oximetry 99 05/11/17 13:15 Oxygen Delivery Method Room Air Fraction of Inspired Oxygen 21 Body Mass Index: 26.2 Comments: GEN-alert, oriented, mild distress secondary to pain HEENT-sclera anicteric, oropharynx is moist NECK-supple CV-regular rate and rhythm CHEST-clear to auscultation bilaterally ABD-patient has an open abdominal wound with a clear dressing. Intestines are visible. She has yellowish discharge that is draining and high output today, so far 3 L -currently no Mills EXT-no edema NEURO-moves all 4 extremities on command SKIN-patient has bruising of the left lower quadrant which she states is secondary to Lovenox injections Results - Labs CBC & Chem 7: 05/11/17 04:54 05/11/17 04:54 Labs: White count is 21.4 which is up from 13.8, 7% bands Blood sugars show fair control of 85-145 BUN continues to trend down. Creatinine is stable at 0.8. Assessment and Plan (1) Open abdominal wall wound Current visit: Yes Status: Chronic (2) Myopathy Problem details: Critical illness myopathy Current visit: Yes Status: Acute Assessment and Plan: 05/11/2017-Dr. Olivier Impression 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 The patient also had a new intra-abdominal fluid collection at that time that was 4.1 x 4.1 x 4.6 cm.-the patient has received [address] Natacha Puente did see the patient today and conferred with Dr. Lewis and the decision was made to discontinue tigecycline secondary to the patient's increased nausea and vomiting. Worsening leukocytosis-we'll need to monitor closely Chronic anemia Elevated BUN-trending down Protein calorie malnutrition-requiring TPN Hypertension Diabetes? Versus hyperglycemia from TPN-which occurs fairly well controlled Chronic abdominal pain secondary to open abdominal wound and pancreatic pseudocyst Decubitus ulcer Pancreatic pseudocyst with unsuccessful attempt for endoscopic cyst stress study on 05/01/2017 History of metastatic neuroendocrine tumor, status post resection History of acute kidney injury secondary to volume depletion from high output abdominal drainage Debility secondary to prolonged illness Plan Dr. Puente saw the patient and recommended discontinuation of tigecycline after discussion with Dr. Lewis. Will watch white count and temperature closely. Replace Mills catheter in order to accurately measure urine output to try to prevent recurrence of acute kidney injury from volume depletion in the setting of high output from her abdominal wound/colocutaneous fistula. The patient is also developing some skin breakdown from incontinence. She understands there is some increased risk for urinary tract infection with Mills in place. Discussed with Dr. Puente today. She is okay with replacing Mills. Continue TPN. Normal saline at 50 ML's an hour added yesterday to decrease likelihood of volume depletion. Recheck BMP and CBC tomorrow. Continue to encourage participation with therapy. Sepsis Assessment - Evaluation Sepsis screening result: Sepsis Risk Hospital Course Summary Disclaimer: The visit summary below is not to be considered part of the above Progress Note. Hospital Course: 05/09/17 10:24 Impression: Generalized debility and myopathy secondary to prolonged hospitalizations, acute. * Continue to encourage participation in therapies as patient's goal is to return home with the ability to dress self and ambulate short distances. Therapy reports that she has been doing well and was able to walk 6 steps yesterday. Continue to provide safe and supportive environment. Recent sepsis secondary to E. faecalis CLABSI and recurrent peritonitis due to enteric leak, acute. * Continue tigecycline per Dr. Lewis, to be completed on 05/19. Will discontinue Mills catheter today. Will provide a commode initially to encourage successful toileting until patient strength and endurance improved. Leukocytosis, persistent, present on admission. * WBC on admission 14.4. Continue to monitor trends periodically throughout admission. Patient remains afebrile and WBC trending down as compared to prior recent labs from previous admission. Recheck CBC in AM to monitor blood count trends. Hyperphosphoremia, acute. * Phosphorus elevated at 4.9. Pharmacy notified and will adjust TPN. Will recheck in AM as well as BMP to monitor electrolytes and renal function and continue to monitor trends. Anemia, chronic secondary to chronic disease. * Present on admission with hemoglobin 9.3. Improved from prior admissions. Monitor periodically throughout admission. Moderate protein calorie malnutrition, chronic. * Prealbumin 8.5 on admission. Continue TPN per pharmacy. As patient continues to vomit with large amounts of fluids orally, recommend providing no more than 150cc liquid at a time and encourage slow, small, frequent sips. Encourage boost as able. Hypertension, chronic. * Blood pressures well controlled and borderline low at times. Continue to monitor closely. Diabetes, chronic. * Continue to monitor BGMs, especially in light of TPN. Sliding scale insulin as indicated. Intractable abdominal pain and nausea with draining abdominal wound, chronic. * Pain control per Dr. Woo. Continue Zofran and Phenergan for nausea/ vomiting. Decubitus ulcer, coccyx, chronic. * Wound care team to continue to monitor. Monitor closely for signs of worsening. Continue to encourage patient to do position adjustments frequently , at least Q2 hours. Pancreatic pseudocyst, chronic. * Unsuccessful attempt for endoscopic cyst gastrostomy for drainage on 05/01/17. Metastatic neuroendocrine tumor, s/p resection, chronic. 05/09/2017-I reviewed this chart, the patient history, and the [employer]'s/PA's documented findings as above. We discussed and formulated the assessment and plan as above with the additions below. I've seen and examined the patient independently.-Dr. Olivier The patient states that she is doing okay. She is having some chronic abdominal pain but it is better this evening. She denies any shortness of breath or chest pain. She denies any current nausea. Mills catheter was removed and at the time that I saw her she had not urinated, but afterward she did have a large incontinence of urine. Bladder scan afterward showed about 150 ML's of urine present. She does not have bowel movements since she is nothing by mouth except for fluids. Vital signs were reviewed. She has a borderline mild tachycardia which on review of [facility] records was present there as well. She has not had any fever. Blood pressure is okay. On exam the patient is mildly drowsy but in no acute distress. Oropharynx is moist. Neck is supple. Chest is clear to auscultation. Cardiovascular reveals a regular rhythm and a borderline tachycardic rate. Abdomen reveals an open abdominal wound with a clear dressing. There is some yellowish drainage. Extremities are free of edema. SCDs are in place. Regarding sepsis, continue current antibiotics. Regarding the patient's recent sepsis likely from abdominal source, will consult Dr. Puente to see the patient on Sunday. We'll continue to monitor white count. Continue TPN for malnutrition. Continue to monitor hemoglobin regarding anemia. Regarding acute kidney injury, the patient was seeing Dr. Massimo Pina at [facility]. Her BUN over the past week was ranging from 59-85. I did discontinue ibuprofen that was started here to prevent worsening of acute kidney injury. We' ll need to monitor renal function and fluid status carefully, especially with Mills catheter out. 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 I did discuss the importance of accurate I&O's as much as is possible with her incontinence We'll monitor vital signs frequently and call parameters were placed We'll continue to monitor lab work fairly frequently.
[2017-05-12] MEDS: Oxycodone *IR* 5 MG TABLET PO PRN ×4 (00:23→20:04)
[2017-05-12] MEDS: PROMETHAZINE 25 MG INJECTION IVP PRN ×4 (00:25→21:53)
[2017-05-12] MEDS: MICONAZOLE 2% POWDER 45gm TP SCH ×2 (04:52→10:36)
[2017-05-12] MEDS ORDERED: HYDROMORPHONE 2 MG/ML INJECTION IVP PRN (08:30)
[2017-05-12] MEDS ORDERED: FALL RISK - PHARMACY CONSULT MC PRN (09:28)
--- NOTE | 2017-05-12 10:23 | Progress Note ---
Subjective: Patient is well known to me as I have managed her renal issues and nutrition for many months during hospitalizations in [facility]. Having a lot of pain this morning. Does not want to go down for breakfast, would like to lie back down. States she needs more for pain, that pills are not working. Feels her pain today is worse than it has been previously. Would like to try breakfast but wants to do this in her room. Objective Vital signs: Temperature 98.7 F 05/12/17 07:56 Pulse Rate 104 H 05/12/17 07:56 Respiratory Rate 20 05/12/17 07:56 Blood Pressure 99/64 05/12/17 07:56 Pulse Oximetry 100 05/12/17 07:56 Oxygen Delivery Method Room Air Fraction of Inspired Oxygen 21 Body Mass Index: 26.2 - Constitutional Present: mild distress, agitated - Routine HEENT Exam Head: Present: normocephalic, atraumatic Eye: Present: EOMI, PERRL. Absent: conjunctival icterus ENT: Present: mucous membranes moist, oropharynx clear - Routine Respiratory Exam Present: CTA bilaterally. Absent: accessory muscle use, decreased breath sounds - Routine Cardiovascular Exam Present: tachycardia Comments: regular, no murmur appreciable - Routine Abdominal Exam Comments: drains intact and functioning, mildly distended - Routine Extremities Exam Present: normal capillary refill. Absent: edema - Routine Musculoskeletal Exam Musculoskeletal: Present: no joint swelling, no erythema - Routine Skin Exam Present: dry. Absent: rash - Routine Neurological Exam Present: alert, oriented X3 - Routine Lymphatic Exam Lymphatic: Present: adenopathy - Routine Psychiatric Exam Present: normal affect Results - Labs CBC & Chem 7: 05/12/17 04:46 05/12/17 04:46 Assessment and Plan Assessment and Plan: 05/12/2017--Dr. 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 The patient also had a new intra-abdominal fluid collection at that time that was 4.1 x 4.1 x 4.6 cm.-the patient has received 3 weeks of tigecycline. Decision made by Dr. Puente/Dr. Lewis of ID on 05/11 to hold further tigecycline. WBC decreased today. Leukocytosis, improved to 14K today, monitoring. Chronic anemia, Hb 7.7, may need PRBC if continued decline. 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 Versus hyperglycemia from TPN--well controlled currently Chronic abdominal pain secondary to open abdominal wound and pancreatic pseudocyst--suspect not absorbing the po meds well, pain not controlled Decubitus ulcer Pancreatic pseudocyst with unsuccessful attempt for endoscopic cyst stress study on 05/01/2017 History of metastatic neuroendocrine tumor, status post resection History of recurrent acute kidney injury secondary to volume depletion from high output abdominal drainage Debility secondary to prolonged illness Plan Severe pain today and not really able to participate with therapy Not likely absorbing the po meds well, unit policy precludes IV narcotics, d/w Dr. Woo and will increase fentanyl patch to 100 mcg and monitor for improvement with that change. Continue TPN, will increase K and discuss with pharmacy re: total volume in the setting of high drain outputs. Hold further saline today unless evidence of volume depletion, overall volume status appears stable although difficult to assess in her. Recheck CBC, renal panel in AM and CMP Sunday. Continue to encourage participation with therapy. Discussed with nursing staff. Sepsis Assessment - Evaluation Sepsis screening result: No Definite Risk Hospital Course Summary Disclaimer: The visit summary below is not to be considered part of the above Progress Note. Hospital Course: 05/09/17 10:24 Impression: Generalized debility and myopathy secondary to prolonged hospitalizations, acute. * Continue to encourage participation in therapies as patient's goal is to return home with the ability to dress self and ambulate short distances. Therapy reports that she has been doing well and was able to walk 6 steps yesterday. Continue to provide safe and supportive environment. Recent sepsis secondary to E. faecalis CLABSI and recurrent peritonitis due to enteric leak, acute. * Continue tigecycline per Dr. Lewis, to be completed on 05/19. Will discontinue Mills catheter today. Will provide a commode initially to encourage successful toileting until patient strength and endurance improved. Leukocytosis, persistent, present on admission. * WBC on admission 14.4. Continue to monitor trends periodically throughout admission. Patient remains afebrile and WBC trending down as compared to prior recent labs from previous admission. Recheck CBC in AM to monitor blood count trends. Hyperphosphoremia, acute. * Phosphorus elevated at 4.9. Pharmacy notified and will adjust TPN. Will recheck in AM as well as BMP to monitor electrolytes and renal function and continue to monitor trends. Anemia, chronic secondary to chronic disease. * Present on admission with hemoglobin 9.3. Improved from prior admissions. Monitor periodically throughout admission. Moderate protein calorie malnutrition, chronic. * Prealbumin 8.5 on admission. Continue TPN per pharmacy. As patient continues to vomit with large amounts of fluids orally, recommend providing no more than 150cc liquid at a time and encourage slow, small, frequent sips. Encourage boost as able. Hypertension, chronic. * Blood pressures well controlled and borderline low at times. Continue to monitor closely. Diabetes, chronic. * Continue to monitor BGMs, especially in light of TPN. Sliding scale insulin as indicated. Intractable abdominal pain and nausea with draining abdominal wound, chronic. * Pain control per Dr. Woo. Continue Zofran and Phenergan for nausea/ vomiting. Decubitus ulcer, coccyx, chronic. * Wound care team to continue to monitor. Monitor closely for signs of worsening. Continue to encourage patient to do position adjustments frequently , at least Q2 hours. Pancreatic pseudocyst, chronic. * Unsuccessful attempt for endoscopic cyst gastrostomy for drainage on 05/01/17. Metastatic neuroendocrine tumor, s/p resection, chronic. 05/09/2017-I reviewed this chart, the patient history, and the SEARCH ENGINE OPTIMIZATION SPECIALIST's/PA's documented findings as above. We discussed and formulated the assessment and plan as above with the additions below. I've seen and examined the patient independently.-Dr. Olivier The patient states that she is doing okay. She is having some chronic abdominal pain but it is better this evening. She denies any shortness of breath or chest pain. She denies any current nausea. Mills catheter was removed and at the time that I saw her she had not urinated, but afterward she did have a large incontinence of urine. Bladder scan afterward showed about 150 ML's of urine present. She does not have bowel movements since she is nothing by mouth except for fluids. Vital signs were reviewed. She has a borderline mild tachycardia which on review of [facility] records was present there as well. She has not had any fever. Blood pressure is okay. On exam the patient is mildly drowsy but in no acute distress. Oropharynx is moist. Neck is supple. Chest is clear to auscultation. Cardiovascular reveals a regular rhythm and a borderline tachycardic rate. Abdomen reveals an open abdominal wound with a clear dressing. There is some yellowish drainage. Extremities are free of edema. SCDs are in place. Regarding sepsis, continue current antibiotics. Regarding the patient's recent sepsis likely from abdominal source, will consult Dr. Puente to see the patient on Sunday. We'll continue to monitor white count. Continue TPN for malnutrition. Continue to monitor hemoglobin regarding anemia. Regarding acute kidney injury, the patient was seeing Dr. Massimo Pina at [facility]. Her BUN over the past week was ranging from 59-85. I did discontinue ibuprofen that was started here to prevent worsening of acute kidney injury. We' ll need to monitor renal function and fluid status carefully, especially with Mills catheter out. 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 I did discuss the importance of accurate I&O's as much as is possible with her incontinence We'll monitor vital signs frequently and call parameters were placed We'll continue to monitor lab work fairly frequently. 05/12/2017--Dr. 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 The patient also had a new intra-abdominal fluid collection at that time that was 4.1 x 4.1 x 4.6 cm.-the patient has received 3 weeks of tigecycline. Decision made by Dr. Puente/Dr. Lewis of ID on 05/11 to hold further tigecycline. WBC decreased today. Leukocytosis, improved to 14K today, monitoring. Chronic anemia, Hb 7.7, may need PRBC if continued decline. 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 Versus hyperglycemia from TPN--well controlled currently Chronic abdominal pain secondary to open abdominal wound and pancreatic pseudocyst--suspect not absorbing the po meds well, pain not controlled Decubitus ulcer Pancreatic pseudocyst with unsuccessful attempt for endoscopic cyst stress study on 05/01/2017 History of metastatic neuroendocrine tumor, status post resection History of recurrent acute kidney injury secondary to volume depletion from high output abdominal drainage Debility secondary to prolonged illness Plan Severe pain today and not really able to participate with therapy Not likely absorbing the po meds well, unit policy precludes IV narcotics, d/w Dr. Woo and will increase fentanyl patch to 100 mcg and monitor for improvement with that change. Continue TPN, will increase K and discuss with pharmacy re: total volume in the setting of high drain outputs. Hold further saline today unless evidence of volume depletion, overall volume status appears stable although difficult to assess in her. Recheck CBC, renal panel in AM and CMP Sunday. Continue to encourage participation with therapy.
[2017-05-12] MEDS: CETIRIZINE 10 MG TABLET PO SCH (10:38)
[2017-05-12] MEDS: NS 1,000 ML IV SCH (10:39)
[2017-05-12] MEDS: ENOXAPARIN 40 MG/0.4 ML INJECTION SQ SCH (10:41)
[2017-05-12] MEDS: ACETAMINOPHEN 500 MG TABLET PO PRN (11:05)
--- NOTE | 2017-05-12 14:12 | Pharmacy Consult-TPN/PPN ---
Pharmacy Consult-TPN/PPN - Laboratory Information Chemistry Turbidity < 20 (0-20) 05/12/17 04:46 Sodium 137 MEQ/L (134-144) 05/12/17 04:46 Potassium 3.3 MEQ/L (3.6-5) L 05/12/17 04:46 Chloride 108 MEQ/L (98-107) H 05/12/17 04:46 Carbon Dioxide 22 MEQ/L (22-30) 05/12/17 04:46 Anion Gap 7 MEQ/L (5-15) 05/12/17 04:46 BUN 37.0 MG/DL (7-17) H 05/12/17 04:46 Creatinine 0.7 MG/DL (0.7-1.2) 05/12/17 04:46 GFR Calculation 92 05/12/17 04:46 BUN/Creatinine Ratio 53 RATIO (6-26) H 05/12/17 04:46 Glucose 90 MG/DL (65-110) 05/12/17 04:46 Glucometer 140 mg/dL (65-110) 05/12/17 11:18 Calculated Osmolality 273 MOSM/KG (261-280) 05/12/17 04:46 Calcium 7.5 MG/DL (8.4-10.2) L 05/12/17 04:46 Phosphorus 3.5 MG/DL (2.5-4.5) 05/11/17 04:54 Magnesium 2.1 MG/DL (1.6-2.3) 05/10/17 04:48 Total Bilirubin 1.20 MG/DL (0.20-1.30) 05/07/17 15:45 Icterus Index < 2 (0-7) 05/12/17 04:46 AST 79 U/L (14-36) H 05/07/17 15:45 ALT 80 U/L (9-52) H 05/07/17 15:45 Alkaline Phosphatase 553 U/L (38-126) H 05/07/17 15:45 Total Protein 7.2 G/DL (6.3-8.2) 05/07/17 15:45 Albumin 2.5 G/DL (3.5-5.0) L 05/07/17 15:45 Globulin 4.7 G/DL (2.4-3.6) H 05/07/17 15:45 Albumin/Globulin Ratio 0.5 RATIO (1.1-2.2) L 05/07/17 15:45 Prealbumin 8.5 MG/DL (17.6-36.0) L 05/09/17 04:59 Specimen Hemolysis < 15 (0-25) 05/12/17 04:46 Intake and Output 05/11/17 05/12/17 05/13/17 06:59 06:59 06:59 Intake Total 2786.25 / 2786.25 1685.833 / 0649.455 0891 / 1000 Output Total 2450 / 2450 2600 / 2600 Balance 336.25 / 336.25 -914.167 / -380.678 0011 / 1000 Intake: IV 2216.25 / 2216.25 1145.833 / 9645.801 3106 / 1000 Intralipid 20% 100 ml @ 100 / 100 100 / 100 50 mls/hr IV 1600 SEAN Rx# :[id number] Normal Saline 1,000 ml @ 945.833 / 138.041 2985 / 1000 50 mls/hr IV .Q20H SEAN Rx #:[id number] Sodium Chloride Conc 4 1916.25 / 1916.25 Meq/ml Sodium Acetate 80 Meq KCl 40 Meq Magnesium Sulfate Inj 16 Meq Calcium Gluconate 9.3 Meq Infuvite Adult 10 ml Multi-Trace Elements 1 ml Folate 2 mg Vitamin B-1 100 mg In TPN - Custom Formula 2,000 ml @ 75 mls /hr IV .Q24H SEAN Rx#: [id number] Tygacil 50 mg In Normal 200 / 200 100 / 100 Saline 100 ml @ 100 mls/ hr IV Q12H SEAN Rx#: [id number] Oral 570 / 570 540 / 540 Output: Stool 2150 / 2150 2600 / 2600 Emesis 200 / 200 Urine Amount (Catheter) 100 / 100 Other: # Voids 1 # Incontinent Voids 1 1 # Unmeasured Emesis 1 Episodes - Consult Information TPN formula adjusted by addition of Potassium Acetate 40 MeQ. Continue at 75 ml/ hr. Current TPN formula aa 10% 1000 ml Dextrose 50% 1000 ml NaCl 120 meq NaAc 80 meq KCl 20 meq KPO4 20 meq K Acetate 40 meq MgSO4 16 meq Ca Gluc 9.3 meq MVI 10 ml Trace Elements 1 ml Folic Acid 2 mg Thiamine 100 mg plus Lipid 20% 100 ml IVPB daily in separate bag
[2017-05-12] MEDS: POTASSIUM CHLORIDE IV SCH (16:47)
[2017-05-12] MEDS: [UNRECOGNIZED DRUG - OTHER] IV SCH (16:47)
[2017-05-12] MEDS: SODIUM ACETATE IV SCH (16:47)
[2017-05-12] MEDS: SODIUM CHLORIDE IV SCH (16:47)
[2017-05-12] MEDS: FAT EMULSION 20% 100 ML IV SCH (16:47)
[2017-05-13] MEDS: Oxycodone *IR* 5 MG TABLET PO PRN ×3 (04:59→16:05)
[2017-05-13] MEDS: MICONAZOLE 2% POWDER 45gm TP SCH ×3 (06:51→21:37)
--- NOTE | 2017-05-13 07:42 | Pharmacy Consult-TPN/PPN ---
Pharmacy Consult-TPN/PPN - Laboratory Information Chemistry Turbidity < 20 (0-20) 05/12/17 04:46 Sodium 137 MEQ/L (134-144) 05/12/17 04:46 Potassium 3.3 MEQ/L (3.6-5) L 05/12/17 04:46 Chloride 108 MEQ/L (98-107) H 05/12/17 04:46 Carbon Dioxide 22 MEQ/L (22-30) 05/12/17 04:46 Anion Gap 7 MEQ/L (5-15) 05/12/17 04:46 BUN 37.0 MG/DL (7-17) H 05/12/17 04:46 Creatinine 0.7 MG/DL (0.7-1.2) 05/12/17 04:46 GFR Calculation 92 05/12/17 04:46 BUN/Creatinine Ratio 53 RATIO (6-26) H 05/12/17 04:46 Glucose 90 MG/DL (65-110) 05/12/17 04:46 Glucometer 127 mg/dL (65-110) 05/12/17 20:57 Calculated Osmolality 273 MOSM/KG (261-280) 05/12/17 04:46 Calcium 7.5 MG/DL (8.4-10.2) L 05/12/17 04:46 Phosphorus 3.5 MG/DL (2.5-4.5) 05/11/17 04:54 Magnesium 2.1 MG/DL (1.6-2.3) 05/10/17 04:48 Total Bilirubin 1.20 MG/DL (0.20-1.30) 05/07/17 15:45 Icterus Index < 2 (0-7) 05/12/17 04:46 AST 79 U/L (14-36) H 05/07/17 15:45 ALT 80 U/L (9-52) H 05/07/17 15:45 Alkaline Phosphatase 553 U/L (38-126) H 05/07/17 15:45 Total Protein 7.2 G/DL (6.3-8.2) 05/07/17 15:45 Albumin 2.5 G/DL (3.5-5.0) L 05/07/17 15:45 Globulin 4.7 G/DL (2.4-3.6) H 05/07/17 15:45 Albumin/Globulin Ratio 0.5 RATIO (1.1-2.2) L 05/07/17 15:45 Prealbumin 8.5 MG/DL (17.6-36.0) L 05/09/17 04:59 Specimen Hemolysis < 15 (0-25) 05/12/17 04:46 Intake and Output 05/12/17 05/13/17 05/14/17 06:59 06:59 06:59 Intake Total 1685.833 / 9573.540 5034 / 1240 Output Total 2600 / 2600 2125 / 2125 Balance -914.167 / -914.167 -885 / -885 Intake: IV 1145.833 / 7012.166 5403 / 1000 Intralipid 20% 100 ml @ 100 / 100 50 mls/hr IV 1600 SEAN Rx# :[id number] Normal Saline 1,000 ml @ 945.833 / 628.469 8918 / 1000 50 mls/hr IV .Q20H SE[facility] Rx #:[id number] Tygacil 50 mg In Normal 100 / 100 Saline 100 ml @ 100 mls/ hr IV Q12H SEAN Rx#: [id number] Oral 540 / 540 240 / 240 Output: Stool 2600 / 2600 1800 / 1800 Emesis 0 / 0 Urine Amount (Catheter) 325 / 325 Other: # Incontinent Voids 1 - Consult Information No lytes today, ordered tomorrow along with a serum phosphorus. Continue current formula at 75 mls/hr. Thank you.
[2017-05-13] MEDS: CETIRIZINE 10 MG TABLET PO SCH (10:06)
[2017-05-13] MEDS: ENOXAPARIN 40 MG/0.4 ML INJECTION SQ SCH (10:06)
[2017-05-13] MEDS: ONDANSETRON ODT 4 MG TABLET PO PRN ×2 (10:07→16:05)
--- NOTE | 2017-05-13 11:08 | Progress Note ---
Subjective: Sleeping comfortably this morning. Per discussion with RN, she is pretty much asleep constantly unless they get her up for therapy, at which point she has severe pain. Not much relief or response to pain pills, unclear if she is absorbing po meds well. Continues on TPN. UOP marginal overnight with 250 cc out. Objective Vital signs: Temperature 99 F 05/13/17 07:40 Pulse Rate 101 H 05/13/17 08:24 Respiratory Rate 20 05/13/17 07:40 Blood Pressure 97/62 05/13/17 08:24 Pulse Oximetry 97 05/13/17 07:40 Oxygen Delivery Method Room Air Fraction of Inspired Oxygen 21 Body Mass Index: 26.2 - Constitutional Present: no acute distress Comments: resting comfortably, awakens easily - Routine HEENT Exam Head: Present: normocephalic, atraumatic ENT: Present: oropharynx clear, dentition normal - Routine Respiratory Exam Present: decreased breath sounds (at the bases). Absent: accessory muscle use, dyspnea - Routine Cardiovascular Exam Present: tachycardia. Absent: murmur - Routine Abdominal Exam Present: soft Comments: drains intact with dark output - Routine Extremities Exam Present: pulses intact, normal capillary refill Comments: trace to 1+ BLE edema at the ankles - Routine Skin Exam Present: dry, warm. Absent: rash - Routine Lymphatic Exam Lymphatic: Absent: adenopathy, lymphedema Results - Labs CBC & Chem 7: 05/13/17 04:26 05/13/17 04:26 Assessment and Plan DVT Prophylaxis: SCD's Resuscitation Status: Full Code Assessment and Plan: 05/13/2017--Dr. 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 The patient also had a new intra-abdominal fluid collection at that time that was 4.1 x 4.1 x 4.6 cm.-the patient has received 3 weeks of tigecycline. Decision made by Dr. Puente/Dr. Lewis of ID on 05/11 to hold further tigecycline. WBC decreased again today. Afebrile Leukocytosis, improved to 12K today, monitoring. Chronic anemia, Hb 7.5, may need PRBC if continued decline. 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 Versus hyperglycemia from TPN--well controlled currently Chronic abdominal pain secondary to open abdominal wound and pancreatic pseudocyst--suspect not absorbing the po meds well, pain not controlled Decubitus ulcer Pancreatic pseudocyst with unsuccessful attempt for endoscopic cyst stress study on 05/01/2017 History of metastatic neuroendocrine tumor, status post resection History of recurrent acute kidney injury secondary to volume depletion from high output abdominal drainage, volume status stable currently Debility secondary to prolonged illness Plan Continue with current pain control regimen, will defer any further changes to Dr. Woo, comfortable when resting Not likely absorbing the po meds well but has fentanyl patch, increased to 100 mcg on 05/12, monitor Hold any medications that would drop her blood pressure and monitor for signs of infection Continue TPN per pharmacy Hold further saline today unless evidence of volume depletion, labs and exam stable CBC, CMP in AM Continue to encourage participation with therapy. Discussed with nursing staff. Sepsis Assessment - Evaluation Sepsis screening result: No Definite Risk Hospital Course Summary Disclaimer: The visit summary below is not to be considered part of the above Progress Note. Hospital Course: 05/09/17 10:24 Impression: Generalized debility and myopathy secondary to prolonged hospitalizations, acute. * Continue to encourage participation in therapies as patient's goal is to return home with the ability to dress self and ambulate short distances. Therapy reports that she has been doing well and was able to walk 6 steps yesterday. Continue to provide safe and supportive environment. Recent sepsis secondary to E. faecalis CLABSI and recurrent peritonitis due to enteric leak, acute. * Continue tigecycline per Dr. Lewis, to be completed on 05/19. Will discontinue Mills catheter today. Will provide a commode initially to encourage successful toileting until patient strength and endurance improved. Leukocytosis, persistent, present on admission. * WBC on admission 14.4. Continue to monitor trends periodically throughout admission. Patient remains afebrile and WBC trending down as compared to prior recent labs from previous admission. Recheck CBC in AM to monitor blood count trends. Hyperphosphoremia, acute. * Phosphorus elevated at 4.9. Pharmacy notified and will adjust TPN. Will recheck in AM as well as BMP to monitor electrolytes and renal function and continue to monitor trends. Anemia, chronic secondary to chronic disease. * Present on admission with hemoglobin 9.3. Improved from prior admissions. Monitor periodically throughout admission. Moderate protein calorie malnutrition, chronic. * Prealbumin 8.5 on admission. Continue TPN per pharmacy. As patient continues to vomit with large amounts of fluids orally, recommend providing no more than 150cc liquid at a time and encourage slow, small, frequent sips. Encourage boost as able. Hypertension, chronic. * Blood pressures well controlled and borderline low at times. Continue to monitor closely. Diabetes, chronic. * Continue to monitor BGMs, especially in light of TPN. Sliding scale insulin as indicated. Intractable abdominal pain and nausea with draining abdominal wound, chronic. * Pain control per Dr. Woo. Continue Zofran and Phenergan for nausea/ vomiting. Decubitus ulcer, coccyx, chronic. * Wound care team to continue to monitor. Monitor closely for signs of worsening. Continue to encourage patient to do position adjustments frequently , at least Q2 hours. Pancreatic pseudocyst, chronic. * Unsuccessful attempt for endoscopic cyst gastrostomy for drainage on 05/01/17. Metastatic neuroendocrine tumor, s/p resection, chronic. 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 We discussed and formulated the assessment and plan as above with the additions below. I've seen and examined the patient independently.-Dr. Olivier The patient states that she is doing okay. She is having some chronic abdominal pain but it is better this evening. She denies any shortness of breath or chest pain. She denies any current nausea. Mills catheter was removed and at the time that I saw her she had not urinated, but afterward she did have a large incontinence of urine. Bladder scan afterward showed about 150 ML's of urine present. She does not have bowel movements since she is nothing by mouth except for fluids. Vital signs were reviewed. She has a borderline mild tachycardia which on review of [facility] records was present there as well. She has not had any fever. Blood pressure is okay. On exam the patient is mildly drowsy but in no acute distress. Oropharynx is moist. Neck is supple. Chest is clear to auscultation. Cardiovascular reveals a regular rhythm and a borderline tachycardic rate. Abdomen reveals an open abdominal wound with a clear dressing. There is some yellowish drainage. Extremities are free of edema. SCDs are in place. Regarding sepsis, continue current antibiotics. Regarding the patient's recent sepsis likely from abdominal source, will consult Dr. Puente to see the patient on Sunday. We'll continue to monitor white count. Continue TPN for malnutrition. Continue to monitor hemoglobin regarding anemia. Regarding acute kidney injury, the patient was seeing Dr. Massimo Pina at via [facility]. Her BUN over the past week was ranging from 59-85. I did discontinue ibuprofen that was started here to prevent worsening of acute kidney injury. We' ll need to monitor renal function and fluid status carefully, especially with Mills catheter out. 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 I did discuss the importance of accurate I&O's as much as is possible with her incontinence We'll monitor vital signs frequently and call parameters were placed We'll continue to monitor lab work fairly frequently. 05/12/2017--Dr. 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 The patient also had a new intra-abdominal fluid collection at that time that was 4.1 x 4.1 x 4.6 cm.-the patient has received 3 weeks of tigecycline. Decision made by Dr. Puente/Dr. Lewis of ID on 05/11 to hold further tigecycline. WBC decreased today. Leukocytosis, improved to 14K today, monitoring. Chronic anemia, Hb 7.7, may need PRBC if continued decline. Elevated BUN-trending down Protein calorie malnutrition-requiring TPN with planned fci need, adjusting per pharmacy Hypertension Diabetes? Versus hyperglycemia from TPN--well controlled currently Chronic abdominal pain secondary to open abdominal wound and pancreatic pseudocyst--suspect not absorbing the po meds well, pain not controlled Decubitus ulcer Pancreatic pseudocyst with unsuccessful attempt for endoscopic cyst stress study on 05/01/2017 History of metastatic neuroendocrine tumor, status post resection History of recurrent acute kidney injury secondary to volume depletion from high output abdominal drainage Debility secondary to prolonged illness Plan Severe pain today and not really able to participate with therapy Not likely absorbing the po meds well, unit policy precludes IV narcotics, d/w Dr. Woo and will increase fentanyl patch to 100 mcg and monitor for improvement with that change. Continue TPN, will increase K and discuss with pharmacy re: total volume in the setting of high drain outputs. Hold further saline today unless evidence of volume depletion, overall volume status appears stable although difficult to assess in her. Recheck CBC, renal panel in AM and CMP Sunday. Continue to encourage participation with therapy. 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 The patient also had a new intra-abdominal fluid collection at that time that was 4.1 x 4.1 x 4.6 cm.-the patient has received 3 weeks of tigecycline. Decision made by Dr. Puente/Dr. Lewis of ID on 05/11 to hold further tigecycline. WBC decreased again today. Afebrile Leukocytosis, improved to 12K today, monitoring. Chronic anemia, Hb 7.5, may need PRBC if continued decline. 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 Versus hyperglycemia from TPN--well controlled currently Chronic abdominal pain secondary to open abdominal wound and pancreatic pseudocyst--suspect not absorbing the po meds well, pain not controlled Decubitus ulcer Pancreatic pseudocyst with unsuccessful attempt for endoscopic cyst stress study on 05/01/2017 History of metastatic neuroendocrine tumor, status post resection History of recurrent acute kidney injury secondary to volume depletion from high output abdominal drainage, volume status stable currently Debility secondary to prolonged illness Plan Continue with current pain control regimen, will defer any further changes to Dr. Woo, comfortable when resting Not likely absorbing the po meds well but has fentanyl patch, increased to 100 mcg on 05/12, monitor Hold any medications that would drop her blood pressure and monitor for signs of infection Continue TPN per pharmacy Hold further saline today unless evidence of volume depletion, labs and exam stable CBC, CMP in AM Continue to encourage participation with therapy.
[2017-05-13] MEDS: INSULIN ASPART SQ PRN (13:36)
[2017-05-13] MEDS: FAT EMULSION 20% 100 ML IV SCH (16:11)
[2017-05-13] MEDS: SODIUM ACETATE IV SCH (16:12)
[2017-05-13] MEDS: [UNRECOGNIZED DRUG - OTHER] IV SCH (16:12)
[2017-05-13] MEDS: POTASSIUM CHLORIDE IV SCH (16:12)
[2017-05-13] MEDS: SODIUM CHLORIDE IV SCH (16:12)
[2017-05-13] MEDS: DiphenhydrAMINE 50 MG/ML INJECTION IVP PRN (18:19)
[2017-05-14] MEDS: Oxycodone *IR* 5 MG TABLET PO PRN ×3 (00:30→11:20)
[2017-05-14] MEDS: PROMETHAZINE 25 MG INJECTION IVP PRN (06:51)
--- NOTE | 2017-05-14 08:33 | Pharmacy Consult-TPN/PPN ---
Pharmacy Consult-TPN/PPN - Laboratory Information Chemistry Turbidity < 20 (0-20) 05/14/17 04:15 Sodium 137 MEQ/L (134-144) 05/14/17 04:15 Potassium 4.1 MEQ/L (3.6-5) 05/14/17 04:15 Chloride 106 MEQ/L (98-107) 05/14/17 04:15 Carbon Dioxide 26 MEQ/L (22-30) 05/14/17 04:15 Anion Gap 5 MEQ/L (5-15) 05/14/17 04:15 BUN 29.0 MG/DL (7-17) H 05/14/17 04:15 Creatinine 0.8 MG/DL (0.7-1.2) 05/14/17 04:15 GFR Calculation 79 05/14/17 04:15 BUN/Creatinine Ratio 36 RATIO (6-26) H 05/14/17 04:15 Glucose 87 MG/DL (65-110) 05/14/17 04:15 Glucometer 138 mg/dL (65-110) 05/14/17 05:46 Calculated Osmolality 269 MOSM/KG (261-280) 05/14/17 04:15 Calcium 7.9 MG/DL (8.4-10.2) L 05/14/17 04:15 Phosphorus 3.5 MG/DL (2.5-4.5) 05/14/17 04:15 Magnesium 2.2 MG/DL (1.6-2.3) 05/14/17 04:15 Total Bilirubin 1.20 MG/DL (0.20-1.30) 05/14/17 04:15 Icterus Index < 2 (0-7) 05/14/17 04:15 AST 90 U/L (14-36) H 05/14/17 04:15 ALT 106 U/L (9-52) H 05/14/17 04:15 Alkaline Phosphatase 441 U/L (38-126) H 05/14/17 04:15 Total Protein 5.6 G/DL (6.3-8.2) L 05/14/17 04:15 Albumin 1.9 G/DL (3.5-5.0) L 05/14/17 04:15 Globulin 3.7 G/DL (2.4-3.6) H 05/14/17 04:15 Albumin/Globulin Ratio 0.5 RATIO (1.1-2.2) L 05/14/17 04:15 Prealbumin 8.5 MG/DL (17.6-36.0) L 05/09/17 04:59 Specimen Hemolysis < 15 (0-25) 05/14/17 04:15 Intake and Output 05/13/17 05/14/17 05/15/17 06:59 06:59 06:59 Intake Total 1340 / 1340 2606.25 / 2606.25 Output Total 2125 / 2125 1880 / 1880 Balance -785 / -785 726.25 / 726.25 Intake: IV 1100 / 1100 1856.25 / 1856.25 Intralipid 20% 100 ml @ 100 / 100 100 / 100 50 mls/hr IV 1600 SEAN Rx# :[id number] Normal Saline 1,000 ml @ 1000 / 1000 50 mls/hr IV .Q20H SEAN Rx #:[id number] Sodium Chloride Conc 4 1756.25 / 1756.25 Meq/ml Sodium Acetate 80 Meq KCl 20 Meq K Phos Inj 20 Meq Magnesium Sulfate Inj 16 Meq Calcium Gluconate 9.3 Meq Infuvite Adult 10 ml Multi-Trace Elements 1 ml Folate 2 mg Vitamin B-1 100 mg Potassium Acetate Inj 40 Meq/20 ml In TPN - Custom Formula 2,000 ml @ 75 mls/hr IV .Q24H SEAN Rx#:[id number] Oral 240 / 240 750 / 750 Output: Stool 1800 / 1800 1050 / 1050 Emesis 0 / 0 20 / 20 Urine Amount (Catheter) 325 / 325 810 / 810 - Consult Information We will continue the same custom TPN formula at the rate of 75mL per hour. Thanks
[2017-05-14] MEDS: MICONAZOLE 2% POWDER 45gm TP SCH ×2 (08:43→21:45)
--- NOTE | 2017-05-14 09:05 | Progress Note ---
Subjective Date: 05/14/17 Subjective: Ms. Giron is seen while she is sitting at the breakfast table for breakfast. She reports that her nausea has improved after I stopped the Tygacil. She has not vomited. She states that she is still getting anti- emetics. She denies any fevers or chills. Still has quite a bit of abdominal pain. She asks if she can eat fresh fruit. Exam Vital Signs: Temperature 99.2 F 05/14/17 08:00 Pulse Rate 104 H 05/14/17 08:00 Respiratory Rate 20 05/14/17 08:00 Blood Pressure 107/66 05/14/17 08:00 Pulse Oximetry 98 05/14/17 08:00 Oxygen Delivery Method Room Air Fraction of Inspired Oxygen 21 Height: 1.57 m Weight: 65 kg Body Mass Index: 26.2 - Constitutional Present: no acute distress, well nourished, well developed - Routine HEENT Exam Head: Present: normocephalic Eye: Present: EOMI ENT: Present: mucous membranes moist, dentition normal - Routine Neck Exam Present: supple - Routine Respiratory Exam Present: CTA bilaterally - Routine Cardiovascular Exam Present: RRR. 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 Absent: rash Comments: LUE PICC site ok - Routine Neurological Exam Present: alert, oriented X3, CN II-XII intact - Routine Psychiatric Exam Present: normal thought process, anxious (slightly) Results - Labs CBC & Chem 7: 05/13/17 04:26 05/14/17 04:15 Impression: * Recent sepsis, NOS, likely secondary to pancreatic pseudocyst, unable to be drained on 05/01. * Intra-abdominal fluid collection (4.1 x 4.1 x 4.6cm) * Leukocytosis, improving * Nausea/vomiting, improved after stopping Tygacil. * Abdominal pain, chronic, but worse per patient. * H/o urine culture with >100K of Kleb. pneumoniae, ESBL positive, suspect colonization. * H/o rash on Merrem, Vancomycin, PCN, cephalosporins * H/o CLABSI with E. faecalis, s/p CVL removal 03/26, treated with Tygacil (due to allergies) through 04/09. 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 Continue to treat her nausea and abdominal pain symptomatically. Monitor her temps, WBC count. Sepsis Assessment - Evaluation Sepsis screening result: No Definite Risk
[2017-05-14] MEDS: CETIRIZINE 10 MG TABLET PO SCH (09:29)
[2017-05-14] MEDS: ENOXAPARIN 40 MG/0.4 ML INJECTION SQ SCH ×2 (09:29→09:54)
--- NOTE | 2017-05-14 10:44 | IRU Progress Note ---
- Subjective/Serverity of Illness Laura was evaluated while she was sitting in her wheelchair in her room with therapist present. She continues to refuse therapy or at least delay therapy quite a bit. She will have the therapists come back several times before she will be able to participate. Complains of a lot of abdominal pain as the primary reason as well as being tired and fatigued. However from the patient's standpoint she states that she thinks she is getting stronger. I have reviewed the therapist's notes. She apparently was untruthful at one point regarding getting back to bed (patient told the therapist that the doctor said she should go back to bed when in truth that did not happen). Medically she is very complicated. She does have history of protein calorie malnutrition and is on chronic TPN. She was seen over the weekend by Dr. Puente, her infectious disease doctor. She is now off of all antibiotics. Has had a recent episode of sepsis attributed to a pancreatic pseudocyst which was not able to be drained. She is asymptomatic at the present time in this regard although has chronic abdominal pain. She is afebrile. Her white count is down to 12,000 which is an improvement. She is less oscillated since the Tygacil was stopped. However continues to have episodes of emesis. We discussed her pain management. Over the weekend I was called by the hospitalist and we did increase the fentanyl patch up to 100 g every 3 days. That higher dose should just be kicking in at the present time. Continues to have a lot of chronic pain and I doubt that she is getting much benefit from her oral medication in this regard. Exam Vital Signs: Temperature 99.2 F 05/14/17 08:00 Pulse Rate 104 H 05/14/17 08:00 Respiratory Rate 20 05/14/17 08:00 Blood Pressure 107/66 05/14/17 08:00 Pulse Oximetry 98 05/14/17 08:00 Oxygen Delivery Method Room Air Fraction of Inspired Oxygen 21 Height: 1.57 m Weight: 65 kg Body Mass Index: 26.2 - Constitutional Present: moderate distress Comments: The patient is awake, alert and oriented and in mod pain. She appears asthenic and responds in a "weak" manner. Pupils are equal. The neck is supple. Chest: Clear to auscultation bilaterally. Cor: RR with no maria elena, click nor murmur Abd: Has an open abd wound with covering on it. No changes. Extremities: No edema is noted. Her extremities appear atrophic (loss of muscle mass). Results IRU - Labs Labs: I reviewed the hospitalist's notes, ID doctor's notes and laboratory work. Sepsis Assessment - Evaluation Sepsis screening result: No Definite Risk IRU A/P (1) Myopathy Problem details: Critical illness myopathy Current visit: Yes Status: Acute Has significant loss of muscle mass in extremities related to her critical illness. She is frequently postponing therapy and requires a lot of encouragement to participate. It is likely this is multifactorial and related to pain, discouragement etc. (2) Open abdominal wall wound Qualifiers: Encounter type: subsequent encounter Qualified Code(s): S31.109D - Unspecified open wound of abdominal wall, unspecified quadrant without penetration into peritoneal cavity, subsequent encounter Current visit: Yes Status: Chronic There is some drainage from the abdominal wound. She is hooked up to a chronic drainage bag as well. (3) Diabetes Qualifiers: Diabetes mellitus type: due to underlying condition Diabetes mellitus complication status: without complication Diabetes mellitus fci insulin use: without petroleum terminal plant operator use Qualified Code(s): E08.9 - Diabetes mellitus due to underlying condition without complications Current visit: No Status: Chronic Not clear she has to diabetes or simply hyperglycemia from her TPN. (4) Protein-calorie malnutrition, moderate Current visit: Yes Status: Chronic Patient has likely zero absorption through her intestines. She is on TPN at present. She is tolerating this well. Managed per pharmacy and nephrology. DVT Prophylaxis: SCD's Resuscitation Status: Full Code - Course Hospital Course: Yevgeniy Woo MD: 05/08/17 10:09 Initiating physical therapy and occupational therapy. Patient is cooperative this morning. Complains of chronic abdominal pain. Limiting oral intake in an effort to reduce leakage from the wound and allow patient to participate in therapy. She would like to increase the restriction from 120 up to 150 ML per hour. This will be allowed. This is excluding intake at mealtime. We will leave a cup at her bedside and I asked her to simply sip on this and not take it all at once. She agreed to do this. White count 14,000 but without evidence of active infection. She remains afebrile. Pain management is with patches and oral agents only. 05/09/17 11:50 Continues to require significant encouragement to participate with therapy. Walked 6 ft. Abd pain is remaining as ongoing pain issue. Protein calorie malnutrition addressed with TPN. 05/10/17 11:19 She is making slow progress. White count improved to 13,000. Appreciate hospitalists assistance. Lower extremity dressing is improved. Walking distance improved. Transfers minimally improved. Significant concerns about patient motivation and safety awareness remains. Abdominal pain, nausea and vomiting impact her therapy progress. 05/14/17 10:48 Has multiple medical problems. Making very slow progress. Frequently refuses therapy or at least postpones it. Requires much encouragement to participate. Increased fentanyl patch in an effort to improve her pain management. Continues on TPN. White count improved to 12,000. - Interventions to Obtain Goals PT Treatment Plan: Balance/Proprioception, Functional Activities, Gait Training , Patient/Family Education, Therapeutic Exercise OT Treatment Plan: ADL (Basic Care), Balance Training, Pt./Family Education, UE Functional Training
[2017-05-14] MEDS ORDERED: FALL RISK - PHARMACY CONSULT MC PRN (11:36)
[2017-05-14] MEDS: INSULIN ASPART SQ PRN (12:23)
--- NOTE | 2017-05-14 12:32 | Progress Note ---
Progress Note: Laura reported to Mima that she was having discomfort in the right ankle. I went in to check on her. She says this is been present at least for the past 4- 5 days. She knows of no trauma. There is a very small area of redness measuring about 4-5 millimeters on the anterior upper ankle area. She does have full range of motion of the ankle but there is discomfort with dorsiflexion and plantar flexion. Pulses are present but diminished. She has a trace of edema. There is slight warmth noted over the area of redness. The malleoli are not involved. Etiology of this is not clear. We will use a cold pack on it as well as some topical anti-inflammatory gel.
[2017-05-14] MEDS: DICLOFENAC 1% TOP GEL 100gm TP SCH ×4 (13:15→21:56)
[2017-05-14] MEDS: [UNRECOGNIZED DRUG - OTHER] IV SCH (16:44)
[2017-05-14] MEDS: FAT EMULSION 20% 100 ML IV SCH (16:44)
[2017-05-14] MEDS: SODIUM CHLORIDE IV SCH (16:44)
[2017-05-14] MEDS: SODIUM ACETATE IV SCH (16:44)
[2017-05-14] MEDS: POTASSIUM CHLORIDE IV SCH (16:44)
[2017-05-15] MEDS: Oxycodone *IR* 5 MG TABLET PO PRN ×4 (01:53→17:43)
[2017-05-15] MEDS: DiphenhydrAMINE 50 MG/ML INJECTION IVP PRN (02:00)
--- NOTE | 2017-05-15 07:51 | Pharmacy Consult-TPN/PPN ---
Pharmacy Consult-TPN/PPN - Laboratory Information Chemistry Turbidity < 20 (0-20) 05/15/17 01:01 Sodium 136 MEQ/L (134-144) 05/15/17 01:01 Potassium 4.2 MEQ/L (3.6-5) 05/15/17 01:01 Chloride 104 MEQ/L (98-107) 05/15/17 01:01 Carbon Dioxide 27 MEQ/L (22-30) 05/15/17 01:01 Anion Gap 5 MEQ/L (5-15) 05/15/17 01:01 BUN 31.0 MG/DL (7-17) H 05/15/17 01:01 Creatinine 0.8 MG/DL (0.7-1.2) 05/15/17 01:01 GFR Calculation 79 05/15/17 01:01 BUN/Creatinine Ratio 39 RATIO (6-26) H 05/15/17 01:01 Glucose 94 MG/DL (65-110) 05/15/17 01:01 Glucometer 141 mg/dL (65-110) 05/15/17 05:37 Calculated Osmolality 269 MOSM/KG (261-280) 05/15/17 01:01 Calcium 8.0 MG/DL (8.4-10.2) L 05/15/17 01:01 Phosphorus 3.5 MG/DL (2.5-4.5) 05/14/17 04:15 Magnesium 2.2 MG/DL (1.6-2.3) 05/14/17 04:15 Total Bilirubin 1.10 MG/DL (0.20-1.30) 05/15/17 01:01 Icterus Index < 2 (0-7) 05/15/17 01:01 AST 80 U/L (14-36) H 05/15/17 01:01 ALT 100 U/L (9-52) H 05/15/17 01:01 Alkaline Phosphatase 390 U/L (38-126) H 05/15/17 01:01 Total Protein 5.4 G/DL (6.3-8.2) L 05/15/17 01:01 Albumin 1.9 G/DL (3.5-5.0) L 05/15/17 01:01 Globulin 3.5 G/DL (2.4-3.6) 05/15/17 01:01 Albumin/Globulin Ratio 0.5 RATIO (1.1-2.2) L 05/15/17 01:01 Prealbumin 8.5 MG/DL (17.6-36.0) L 05/09/17 04:59 Specimen Hemolysis < 15 (0-25) 05/15/17 01:01 Intake and Output 05/14/17 05/15/17 05/16/17 06:59 06:59 06:59 Intake Total 2606.25 / 2606.25 3428 / 3428 Output Total 1880 / 1880 1350 / 1350 Balance 726.25 / 726.25 207 / 8 Weight 70 kg Intake: IV 1856.25 / 1856.25 2340 / 2340 Intralipid 20% 100 ml @ 100 / 100 50 mls/hr IV 1600 SEAN Rx# :[id number] Normal Saline 500 ml @ 500 / 500 999.9 mls/hr IV .Q30M SEAN Rx#:[id number] Sodium Chloride Conc 4 1756.25 / 1756.25 1840 / 1840 Meq/ml Sodium Acetate 80 Meq KCl 20 Meq K Phos Inj 20 Meq Magnesium Sulfate Inj 16 Meq Calcium Gluconate 9.3 Meq Infuvite Adult 10 ml Multi-Trace Elements 1 ml Folate 2 mg Vitamin B-1 100 mg Potassium Acetate Inj 40 Meq/20 ml In TPN - Custom Formula 2,000 ml @ 75 mls/hr IV .Q24H [facility] Rx#:[id number] Oral 750 / 750 1088 / 1088 Output: Stool 1050 / 1050 1100 / 1100 Emesis 20 / 20 Urine Amount (Catheter) 810 / 810 250 / 250 - Consult Information We will continue current formula of custom TPN at the rate of 75mL per hour. Thanks
[2017-05-15] MEDS: ONDANSETRON ODT 4 MG TABLET PO PRN ×2 (08:10→13:42)
[2017-05-15] MEDS: CETIRIZINE 10 MG TABLET PO SCH (08:10)
--- NOTE | 2017-05-15 09:41 | Progress Note ---
Subjective: Laura is seen this morning in follow up. She reports having some pain to the right rivas area. Laura reports the pain in this area is hindering work with PT as it hurts to put on lower ext splints and hurts to stand. Discussed with OT regarding padding to splints or making adjustments. It is noted that overnight she did develop a fever overnight with maximal of 101.4. Blood cultures were obtained. White count is to trend down, this morning is 11.8, hemoglobin slightly down at 7.1. During the acute fever overnight. She was mildly tachycardic up to 107, and blood pressure did decrease to 89/60 during this time. Vital signs have improved this morning. Pulse in the 90s, blood pressure 101/65. Objective Vital signs: Temperature 98.7 F 05/15/17 07:53 Pulse Rate 98 05/15/17 07:53 Respiratory Rate 24 05/15/17 07:53 Blood Pressure 101/65 05/15/17 07:53 Pulse Oximetry 98 05/15/17 07:53 Oxygen Delivery Method Room Air Fraction of Inspired Oxygen 21 Body Mass Index: 26.2 Body Four View Image: 1 - 2 in circular erythema with tenderness - Constitutional Present: no acute distress, well nourished, well developed - Routine HEENT Exam Eye: Present: EOMI, PERRL ENT: Present: mucous membranes moist, dentition normal - Routine Respiratory Exam Present: CTA bilaterally. Absent: wheezes - Routine Cardiovascular Exam Present: RRR, S1, S2. Absent: murmur - Routine Abdominal Exam Present: soft, normoactive bowel sounds, non distended, wound (open abdomen). Absent: tenderness - Routine Extremities Exam Present: normal capillary refill Comments: Erythema to right anterior rivas area. 2 inch circular - Routine Skin Exam Present: erythema (Right rivas), dry, warm - Routine Neurological Exam Present: alert, oriented X3, CN II-XII intact - Routine Lymphatic Exam Lymphatic: Absent: adenopathy - Routine Psychiatric Exam Present: normal affect, normal thought process Results - Labs CBC & Chem 7: 05/15/17 01:01 05/15/17 01:01 Microbiology Results: Microbiology 05/14/17 22:43 Cath/Port/Line/Picc Blood Culture - Preliminary Culture Initiated - Results Pending 05/14/17 22:46 Cath/Port/Line/Picc Blood Culture - Preliminary Culture Initiated - Results Pending Assessment and Plan (1) Open abdominal wall wound Current visit: Yes Status: Chronic (2) Myopathy Problem details: Critical illness myopathy Current visit: Yes Status: Acute Assessment and Plan: 05/15/17 Impression RLE- erythema 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 The patient also had a new intra-abdominal fluid collection at that time that was 4.1 x 4.1 x 4.6 cm.-the patient has received 3 weeks of tigecycline. Decision made by Dr. Puente/Dr. Lewis of ID on 05/11 to hold further tigecycline. WBC decreased again today Leukocytosis Chronic anemia Elevated BUN-trending down daily, no evidence of intravascular depletion, off saline currently Protein calorie malnutrition-requiring TPN with planned adjunct faculty for medical terminology need, adjusting per pharmacy, electrolytes stable today Hypertension per history, recent BP marginal in the 90-100 range systolic Diabetes? Versus hyperglycemia from TPN--well controlled currently Chronic abdominal pain secondary to open abdominal wound and pancreatic pseudocyst--suspect not absorbing the po meds well, pain not controlled Decubitus ulcer Pancreatic pseudocyst with unsuccessful attempt for endoscopic cyst stress study on 05/01/2017 History of metastatic neuroendocrine tumor, status post resection History of recurrent acute kidney injury secondary to volume depletion from high output abdominal drainage, volume status stable currently Debility secondary to prolonged illness Plan Continue with current pain control regimen, will defer any further changes to Dr. Woo, comfortable when resting Cory area of erythema to monitor of evidence of extension. Discussed with OT regarding assessing if there is any irritation or rubbing on the right rivas with patient's leg brace. Will evaluate if more padding as needed. Patient verbalizes this area of her leg is so uncomfortable. She is unable to work with therapy or stand. Regarding increased fever overnight, blood cultures have been drawn and are preliminary negative. Will continue to monitor. Leukocytosis remained stable and is trending down. Continue to monitor hemoglobin as this is slightly decreased, likely secondary to dilution given IV fluids overnight. Continue with wound care. Continue to encourage work with PT and OT for ongoing strengthening Will review current plan of care with attending as well as Dr. Woo in care rounds later today. Sepsis Assessment - Evaluation Sepsis screening result: Sepsis Risk Hospital Course Summary Disclaimer: The visit summary below is not to be considered part of the above Progress Note. Hospital Course: 05/09/17 10:24 Impression: Generalized debility and myopathy secondary to prolonged hospitalizations, acute. * Continue to encourage participation in therapies as patient's goal is to return home with the ability to dress self and ambulate short distances. Therapy reports that she has been doing well and was able to walk 6 steps yesterday. Continue to provide safe and supportive environment. Recent sepsis secondary to E. faecalis CLABSI and recurrent peritonitis due to enteric leak, acute. * Continue tigecycline per Dr. Lewis, to be completed on 05/19. Will discontinue Mills catheter today. Will provide a commode initially to encourage successful toileting until patient strength and endurance improved. Leukocytosis, persistent, present on admission. * WBC on admission 14.4. Continue to monitor trends periodically throughout admission. Patient remains afebrile and WBC trending down as compared to prior recent labs from previous admission. Recheck CBC in AM to monitor blood count trends. Hyperphosphoremia, acute. * Phosphorus elevated at 4.9. Pharmacy notified and will adjust TPN. Will recheck in AM as well as BMP to monitor electrolytes and renal function and continue to monitor trends. Anemia, chronic secondary to chronic disease. * Present on admission with hemoglobin 9.3. Improved from prior admissions. Monitor periodically throughout admission. Moderate protein calorie malnutrition, chronic. * Prealbumin 8.5 on admission. Continue TPN per pharmacy. As patient continues to vomit with large amounts of fluids orally, recommend providing no more than 150cc liquid at a time and encourage slow, small, frequent sips. Encourage boost as able. Hypertension, chronic. * Blood pressures well controlled and borderline low at times. Continue to monitor closely. Diabetes, chronic. * Continue to monitor BGMs, especially in light of TPN. Sliding scale insulin as indicated. Intractable abdominal pain and nausea with draining abdominal wound, chronic. * Pain control per Dr. Woo. Continue Zofran and Phenergan for nausea/ vomiting. Decubitus ulcer, coccyx, chronic. * Wound care team to continue to monitor. Monitor closely for signs of worsening. Continue to encourage patient to do position adjustments frequently , at least Q2 hours. Pancreatic pseudocyst, chronic. * Unsuccessful attempt for endoscopic cyst gastrostomy for drainage on 05/01/17. Metastatic neuroendocrine tumor, s/p resection, chronic. 05/09/2017-I reviewed this chart, the patient history, and the SALES COORDINATOR's/PA's documented findings as above. We discussed and formulated the assessment and plan as above with the additions below. I've seen and examined the patient independently.-Dr. Olivier The patient states that she is doing okay. She is having some chronic abdominal pain but it is better this evening. She denies any shortness of breath or chest pain. She denies any current nausea. Mills catheter was removed and at the time that I saw her she had not urinated, but afterward she did have a large incontinence of urine. Bladder scan afterward showed about 150 ML's of urine present. She does not have bowel movements since she is nothing by mouth except for fluids. Vital signs were reviewed. She has a borderline mild tachycardia which on review of view [facility] records was present there as well. She has not had any fever. Blood pressure is okay. On exam the patient is mildly drowsy but in no acute distress. Oropharynx is moist. Neck is supple. Chest is clear to auscultation. Cardiovascular reveals a regular rhythm and a borderline tachycardic rate. Abdomen reveals an open abdominal wound with a clear dressing. There is some yellowish drainage. Extremities are free of edema. SCDs are in place. Regarding sepsis, continue current antibiotics. Regarding the patient's recent sepsis likely from abdominal source, will consult Dr. Puente to see the patient on Sunday. We'll continue to monitor white count. Continue TPN for malnutrition. Continue to monitor hemoglobin regarding anemia. Regarding acute kidney injury, the patient was seeing Dr. Massimo Pina at via [facility]. Her BUN over the past week was ranging from 59-85. I did discontinue ibuprofen that was started here to prevent worsening of acute kidney injury. We' ll need to monitor renal function and fluid status carefully, especially with Mills catheter out. 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 I did discuss the importance of accurate I&O's as much as is possible with her incontinence We'll monitor vital signs frequently and call parameters were placed We'll continue to monitor lab work fairly frequently. 05/12/2017--Dr. 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 The patient also had a new intra-abdominal fluid collection at that time that was 4.1 x 4.1 x 4.6 cm.-the patient has received 3 weeks of tigecycline. Decision made by Dr. Puente/Dr. Lewis of ID on 05/11 to hold further tigecycline. WBC decreased today. Leukocytosis, improved to 14K today, monitoring. Chronic anemia, Hb 7.7, may need PRBC if continued decline. Elevated BUN-trending down Protein calorie malnutrition-requiring TPN with planned adjunct faculty for medical terminology need, adjusting per pharmacy Hypertension Diabetes? Versus hyperglycemia from TPN--well controlled currently Chronic abdominal pain secondary to open abdominal wound and pancreatic pseudocyst--suspect not absorbing the po meds well, pain not controlled Decubitus ulcer Pancreatic pseudocyst with unsuccessful attempt for endoscopic cyst stress study on 05/01/2017 History of metastatic neuroendocrine tumor, status post resection History of recurrent acute kidney injury secondary to volume depletion from high output abdominal drainage Debility secondary to prolonged illness Plan Severe pain today and not really able to participate with therapy Not likely absorbing the po meds well, unit policy precludes IV narcotics, d/w Dr. Woo and will increase fentanyl patch to 100 mcg and monitor for improvement with that change. Continue TPN, will increase K and discuss with pharmacy re: total volume in the setting of high drain outputs. Hold further saline today unless evidence of volume depletion, overall volume status appears stable although difficult to assess in her. Recheck CBC, renal panel in AM and CMP Sunday. Continue to encourage participation with therapy. 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 The patient also had a new intra-abdominal fluid collection at that time that was 4.1 x 4.1 x 4.6 cm.-the patient has received 3 weeks of tigecycline. Decision made by Dr. Puente/Dr. Lewis of ID on 05/11 to hold further tigecycline. WBC decreased again today. Afebrile Leukocytosis, improved to 12K today, monitoring. Chronic anemia, Hb 7.5, may need PRBC if continued decline. Elevated BUN-trending down daily, no evidence of intravascular depletion, off saline currently Protein calorie malnutrition-requiring TPN with planned [facility] need, adjusting per pharmacy, electrolytes stable today Hypertension per history, recent BP marginal in the 90-100 range systolic Diabetes? Versus hyperglycemia from TPN--well controlled currently Chronic abdominal pain secondary to open abdominal wound and pancreatic pseudocyst--suspect not absorbing the po meds well, pain not controlled Decubitus ulcer Pancreatic pseudocyst with unsuccessful attempt for endoscopic cyst stress study on 05/01/2017 History of metastatic neuroendocrine tumor, status post resection History of recurrent acute kidney injury secondary to volume depletion from high output abdominal drainage, volume status stable currently Debility secondary to prolonged illness Plan Continue with current pain control regimen, will defer any further changes to Dr. Woo, comfortable when resting Not likely absorbing the po meds well but has fentanyl patch, increased to 100 mcg on 05/12, monitor Hold any medications that would drop her blood pressure and monitor for signs of infection Continue TPN per pharmacy Hold further saline today unless evidence of volume depletion, labs and exam stable CBC, CMP in AM Continue to encourage participation with therapy. 05/15/17 Plan Continue with current pain control regimen, will defer any further changes to Dr. Woo, comfortable when resting Cory area of erythema to monitor of evidence of extension. Discussed with OT regarding assessing if there is any irritation or rubbing on the right rivas with patient's leg brace. Will evaluate if more padding as needed. Patient verbalizes this area of her leg is so uncomfortable. She is unable to work with therapy or stand. Regarding increased fever overnight, blood cultures have been drawn and are preliminary negative. Will continue to monitor. Leukocytosis remained stable and is trending down. Continue to monitor hemoglobin as this is slightly decreased, likely secondary to dilution given IV fluids overnight. Continue with wound care. Continue to encourage work with PT and OT for ongoing strengthening Will review current plan of care with attending as well as Dr. Woo in care rounds later today.
[2017-05-15] MEDS: DICLOFENAC 1% TOP GEL 100gm TP SCH ×3 (09:51→17:45)
[2017-05-15] MEDS: MICONAZOLE 2% POWDER 45gm TP SCH ×2 (09:51→23:02)
[2017-05-15] MEDS: PROMETHAZINE 25 MG INJECTION IVP PRN ×2 (10:06→17:46)
[2017-05-15] MEDS: ENOXAPARIN 40 MG/0.4 ML INJECTION SQ SCH (10:08)
--- NOTE | 2017-05-15 10:36 | IRU Progress Note ---
- Subjective/Serverity of Illness Laura continues to be quite complicated medically. She developed a fever last of 101.4. 2 blood cultures were done which were negative at this time. The only new symptom she has is that of discomfort and just a slight amount of redness in the anterior right ankle. She knows of no trauma to that area. Hurts to bear weight on the foot. There is some slight puffiness of the ankle. However has fairly good range of motion of the ankle. Even minor touching of the scan results in significant discomfort per the patient. There is a very small area of redness in the anterior right ankle toward the superior aspect. It is unchanged since yesterday I somewhat. It is tender. It is not fluctuant. There is no discharge. Her white count has improved. Her hemoglobin has dropped a bit to 7.1. With regard to therapy, she continues to require quite a bit of encouragement to participate. I reviewed extensive therapy notes. She requires maximal assistance for lower extremity dressing. Very slow improvement. We will have team meeting in her room today hopefully with her present. Exam Vital Signs: Temperature 98.7 F 05/15/17 07:53 Pulse Rate 98 05/15/17 07:53 Respiratory Rate 24 05/15/17 07:53 Blood Pressure 101/65 05/15/17 07:53 Pulse Oximetry 98 05/15/17 07:53 Oxygen Delivery Method Room Air Fraction of Inspired Oxygen 21 Height: 1.57 m Weight: 70 kg Body Mass Index: 26.2 - Constitutional Present: moderate distress Comments: The patient is awake, alert and oriented and in moderate distress. Pupils are equal. The neck is supple. Chest: Clear to auscultation bilaterally. Cor: RR with no maria elena, click nor murmur Abd: Unchanged abdominal wound. Extremities: The right ankle is slightly puffy. It is tender. Has reasonable range of motion but with pain. Even light touch of the ankle results in expression of pain. There is a small area of redness on the upper anterior right ankle. This is tender but not fluctuant. There is no discharge. Results IRU - Labs Labs: Reviewed lab. Hemoglobin down to 7.1. Blood cultures negative at this early time. Sepsis Assessment - Evaluation Sepsis screening result: Sepsis Risk IRU A/P (1) Myopathy Problem details: Critical illness myopathy Current visit: Yes Status: Acute Continues to have atrophy and significant muscle weakness of all 4 extremities. Requiring maximal assistance for lower extremity dressing. Requiring a lot of encouragement to participate in therapies. (2) Open abdominal wall wound Qualifiers: Encounter type: subsequent encounter Qualified Code(s): S31.109D - Unspecified open wound of abdominal wall, unspecified quadrant without penetration into peritoneal cavity, subsequent encounter Current visit: Yes Status: Chronic Continues to have drainage from the abdominal wound. Urine output was low last night. Likely she has a lot of output via the abdominal wound however. Creatinine remains stable and BUN is reasonable at about 30. She was given a fluid bolus. (3) Diabetes Qualifiers: Diabetes mellitus type: due to underlying condition Diabetes mellitus complication status: without complication Diabetes mellitus superintendent [employer] insulin use: without superintendent [employer] use Qualified Code(s): E08.9 - Diabetes mellitus due to underlying condition without complications Current visit: No Status: Chronic (4) Protein-calorie malnutrition, moderate Current visit: Yes Status: Chronic Continues on TPN. Labs monitored. Liver enzymes improved. (5) Ankle pain, right Qualifiers: Chronicity: acute Qualified Code(s): M25.571 - Pain in right ankle and joints of right foot Current visit: Yes Status: Acute I was notified about her right ankle pain yesterday. She says it started about 3 -4 days prior. No trauma is noted. It is tender to palpate and it is a bit puffy. There is some redness anteriorly. Differential considerations are many but could include gout, pseudogout or septic joint. Also could simply be degenerative in origin. We are using Voltaren gel on it. We will also check uric acid and do a plain film looking for chondrocalcinosis. DVT Prophylaxis: SCD's Resuscitation Status: Full Code - Course Hospital Course: Yevgeniy Woo MD: 05/08/17 10:09 Initiating physical therapy and occupational therapy. Patient is cooperative this morning. Complains of chronic abdominal pain. Limiting oral intake in an effort to reduce leakage from the wound and allow patient to participate in therapy. She would like to increase the restriction from 120 up to 150 ML per hour. This will be allowed. This is excluding intake at mealtime. We will leave a cup at her bedside and I asked her to simply sip on this and not take it all at once. She agreed to do this. White count 14,000 but without evidence of active infection. She remains afebrile. Pain management is with patches and oral agents only. 05/09/17 11:50 Continues to require significant encouragement to participate with therapy. Walked 6 ft. Abd pain is remaining as ongoing pain issue. Protein calorie malnutrition addressed with TPN. 05/10/17 11:19 She is making slow progress. White count improved to 13,000. Appreciate hospitalists assistance. Lower extremity dressing is improved. Walking distance improved. Transfers minimally improved. Significant concerns about patient motivation and safety awareness remains. Abdominal pain, nausea and vomiting impact her therapy progress. 05/14/17 10:48 Has multiple medical problems. Making very slow progress. Frequently refuses therapy or at least postpones it. Requires much encouragement to participate. Increased fentanyl patch in an effort to improve her pain management. Continues on TPN. White count improved to 12,000. 05/15/17 10:39 Continues to be very complex. Had poor urine output but responded to fluid bolus. Requires total assistance for many ADLs. Increase fentanyl patch 2-3 days ago. Hopefully that will provide additional pain improvement. White count is improved. Hemoglobin down at 7.1. Does have right ankle pain now which impedes her progress. - Interventions to Obtain Goals PT Treatment Plan: Balance/Proprioception, Functional Activities, Gait Training , Patient/Family Education, Therapeutic Exercise OT Treatment Plan: ADL (Basic Care), Balance Training, Pt./Family Education, UE Functional Training
--- NOTE | 2017-05-15 12:02 | XRay Report ---
Indication: pain right ankle, no trauma PROCEDURE: XR ankle RT min 3V: Encounter: Initial Comparison: None Findings: No acute fracture or dislocation seen. There is permeative irregular lucency seen in the medial malleolus and also within the talar dome. There is also evidence for small lucencies in the posterior inferior calcaneus and potentially within the navicular bone and cuneiform bones seen on the lateral view. No significant soft tissue swelling or obvious joint effusion. No osseous erosions identified to suggest gout. Impression: Irregular lucencies within multiple bones. Differential considerations include aggressive processes such as infection, metastatic disease and multiple myeloma. Disuse osteoporosis could also cause this appearance if the patient has been nonweightbearing or reduced weightbearing on this extremity recently. Contrast enhanced MRI may be helpful for further evaluation. Radiographic comparison with the contralateral ankle may also be helpful to evaluate for symmetry. .
[2017-05-15] MEDS: INSULIN ASPART SQ PRN (14:35)
--- NOTE | 2017-05-15 15:24 | Orthopedic Consult Note ---
Orthopedic Consultation HPI - Consultation Info Consult Date: 05/15/17 Attending Physician: Yevgeniy Woo MD Consult Reason: joint pain - HPI Elements right anterior ankle Pain: stabbing Onset: gradual Severity: moderate Duration: several days How Often Does Pain Occur: constant Previous Surgery: No Previous Injury: No Aggrevated by: standing HPI Comment: This is a kind 41-year-old female who has been bedbound for the last year after abdominal surgery for cancer. She is now here at [facility] rehabilitation insert having anterior ankle pain on the right last week. The pain is rather severe and there is tenderness to even light touch. The pain prevents her from weightbearing. She denies any previous problems with his ankle. She has equinus contractures of both ankles and she states both feet invert when she walks. She uses contracture boots at night on both ankles. Review of Systems - Constitutional Constitutional: Absent: chills, fever(s), night sweats - Cardiovascular Cardiovascular: Absent: chest pain, palpitations - Respiratory Respiratory: Absent: cough, dyspnea - Gastrointestinal Gastrointestinal: Absent: nausea, vomiting - Genitourinary Genitourinary Female: Absent: dysuria - Musculoskeletal Musculoskeletal: Present: as per HPI - Integumentary/Breasts Integumentary: Absent: lesions, rash - Neurological Neurological: Present: numbness (intermittent numbness to the right foot and no specific pattern), tingling PFSH Patient Stated Medical History Other GI pancreatitis/open colon fistula Hx Renal Disease Yes: Hx: renal failure (post op complication) Sepsis Yes Other Infectious Yes: 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 Hx neuroendocrine tumor (resected) with hepatic metastases. 2. Hx pancreatitis. 3. Hx multiple entero-cutaneous fistulae. 4. Chronic abd pain. 5. Hx sepsis, including hx CLABSI with E. faecalis. 6. Anemia. 7. Hypertension. 8. Diabetes Surgical History: 07/10/16-resection of intra-abdominal neuroendocrine tumor from mesentary and liver, appendectomy, small bowel resection, multiple other exploratory laparotomies with further resections and ileostomy, tracheotomy. Endoscopic cystgastrostomy- 05/17 - Social History Smoking status: Never smoker Current residence: Apartment/Private Home Medications Home Medications Medication Instructions Recorded Confirmed Type Acetaminophen [Acetaminophen Extra 1,000 mg PO Q6HPRN PRN 04/09/17 05/07/17 History Strength] Acetaminophen [Feverall] 650 mg RC Q4HPRN PRN 04/09/17 05/07/17 History Albuterol/Ipratropium [Duoneb] 1 unit AEROSOL QIDPRN PRN 04/09/17 05/07/17 History Cetirizine [Zyrtec] 5 mg PO DAILY 04/09/17 05/07/17 History D50w [Dextrose 50% in Water] 50 ml IV O PRN 04/09/17 05/07/17 History DiphenhydrAMINE [Benadryl] 25 mg IV Q8HPRN PRN 04/09/17 05/07/17 History FentaNYL PATCH [Duragesic Patch] 25 mcg TD Q3D 04/09/17 05/07/17 History FentaNYL PATCH [Duragesic Patch] 50 mcg TD Q3D 04/09/17 05/07/17 History Furosemide [Lasix] 20 mg IM DAILY PRN 04/09/17 05/07/17 History Glucagon [Glucagen] 1 mg IM PRN PRN 04/09/17 05/07/17 History Heparin Sodium,Porcine/Pf [Heparin 1 ml IVP BID 04/09/17 05/07/17 History Flush 10 Units/ml Syr] HydrOXYzine [Atarax] 25 mg PO QIDPRN PRN 04/09/17 05/07/17 History Hydromorphone HCl in 0.9% NaCl 0.25 mg IVP Q2HPRN PRN 04/09/17 05/07/17 History [Hydromorphone-Ns 1 mg/ml Syr] Insulin Lispro [Humalog] 0 unit SQ PRN PRN 04/09/17 05/07/17 History LORazepam INJ [Ativan Inj] 0.13 ml IM Q6HPRN PRN 04/09/17 05/07/17 History Meperidine HCl/Pf [Meperidine 25 2 ml IV Q4HPRN PRN 04/09/17 05/07/17 History mg/ml Vial] Miconazole 2% Powder [Desenex] 1 applic TP BID 04/09/17 05/07/17 History Nystatin Cream [Mycostatin] 1 applic TOP BID 04/09/17 05/07/17 History Ondansetron [Zofran Odt] 1 tab PO Q6HPRN PRN 04/09/17 05/07/17 History Oxycodone *Ir* [Roxicodone *Ir*] 5 - 10 mg PO Q4HPRN PRN 04/09/17 05/07/17 History Polyethylene Glycol 3350 17 gm PO DAILY PRN 04/09/17 05/07/17 History Saliva Substitute Mouth [place] 1 applic PO QIDPRN PRN 04/09/17 05/07/17 History [Biotene Moisturizing Mouth [place]] Ibuprofen [Motrin] 1 tab PO Q6H PRN 05/07/17 05/07/17 History Tigecycline 50 mg IV Q12H 05/07/17 05/07/17 History Allergies Allergy/AdvReac Type Severity Reaction Status Date / Time kiwi Allergy Severe Rash Verified 05/07/17 13:02 orange Allergy Severe Rash Verified 05/07/17 13:02 vancomycin Allergy Severe Rash Verified 05/07/17 13:02 Penicillins Allergy Unknown Verified 05/07/17 13:02 Orthopedic Exam Vital signs: Temperature 98.5 F 05/15/17 13:00 Pulse Rate 102 H 05/15/17 13:00 Respiratory Rate 18 05/15/17 13:00 Blood Pressure 102/61 05/15/17 13:00 Pulse Oximetry 99 05/15/17 13:00 Oxygen Delivery Method Room Air Fraction of Inspired Oxygen 21 - Constitutional General Appearance: Present: alert, orientated x3, mild distress, looks stated age - Respiratory Exam Present: non-labored - Extremities Exam Present: normal capillary refill Comments: Both lower extremities have muscular atrophy. Dorsiflexion of both ankles is minimal as well as dorsiflexion of her toes. She has tenderness to light touch throughout the right leg including the calf, medial and lateral malleoli, anterior ankle, hindfoot and midfoot. No specific skin changes. - Lymphatic Lymphatic: Absent: adenopathy - Labs Result Diagrams: 05/15/17 01:01 05/15/17 01:01 Abnormal lab results 05/15/17 05/15/17 Range/Units 01:01 01:01 WBC 11.8 H (4.5-11.0) T/MM3 RBC 2.22 L (4.00-5.20) M/MM3 Hgb 7.1 L (12-16) GM/DL Hct 23.7 L (36-46) % MCV 106.8 H (80-100) UM3 MCHC 30.0 L (31-37) GM/DL RDW Std Deviation 63.1 H (36.9-50.2) FL Immature Gran % (Auto) 0.6 H (0.0-0.5) % Abs Immat Gran (auto) 0.07 H (0.00-0.03) T/MM3 BUN 31.0 H (7-17) MG/DL BUN/Creatinine Ratio 39 H (6-26) RATIO Calcium 8.0 L (8.4-10.2) MG/DL AST 80 H (14-36) U/L ALT 100 H (9-52) U/L Alkaline Phosphatase 390 H (38-126) U/L Total Protein 5.4 L (6.3-8.2) G/DL Albumin 1.9 L (3.5-5.0) G/DL Albumin/Globulin Ratio 0.5 L (1.1-2.2) RATIO H & H 05/08/17 05/10/17 05/11/17 Range/Units 04:12 04:48 04:54 Hgb 9.3 L 8.5 L 8.7 L (12-16) GM/DL Hct 30.6 L 28.3 L 28.3 L (36-46) % 05/12/17 05/13/17 05/15/17 Range/Units 04:46 04:26 01:01 Hgb 7.7 L D 7.5 L 7.1 L (12-16) GM/DL Hct 25.3 L 24.7 L 23.7 L (36-46) % - Diagnostic results Ankle/Foot x-ray: report reviewed, image reviewed Impression and Recommendation (1) Ankle pain, right Current visit: Yes Qualifiers: Chronicity: acute Qualified Code(s): M25.571 - Pain in right ankle and joints of right foot Status: Acute Given her history and her x-ray changes I think the 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 She agreed this plan and we'll order the MRI today and follow up with recommendations pending the results. They 'll continue to contracture boots at night and continue working on strengthening of both lower extremities. Hospital Course Summary Disclaimer: The visit summary below is not to be considered part of the above Progress Note. Hospital Course: 05/09/17 10:24 Impression: Generalized debility and myopathy secondary to prolonged hospitalizations, acute. * Continue to encourage participation in therapies as patient's goal is to return home with the ability to dress self and ambulate short distances. Therapy reports that she has been doing well and was able to walk 6 steps yesterday. Continue to provide safe and supportive environment. Recent sepsis secondary to E. faecalis CLABSI and recurrent peritonitis due to enteric leak, acute. * Continue tigecycline per Dr. Lewis, to be completed on 05/19. Will discontinue Mills catheter today. Will provide a commode initially to encourage successful toileting until patient strength and endurance improved. Leukocytosis, persistent, present on admission. * WBC on admission 14.4. Continue to monitor trends periodically throughout admission. Patient remains afebrile and WBC trending down as compared to prior recent labs from previous admission. Recheck CBC in AM to monitor blood count trends. Hyperphosphoremia, acute. * Phosphorus elevated at 4.9. Pharmacy notified and will adjust TPN. Will recheck in AM as well as BMP to monitor electrolytes and renal function and continue to monitor trends. Anemia, chronic secondary to chronic disease. * Present on admission with hemoglobin 9.3. Improved from prior admissions. Monitor periodically throughout admission. Moderate protein calorie malnutrition, chronic. * Prealbumin 8.5 on admission. Continue TPN per pharmacy. As patient continues to vomit with large amounts of fluids orally, recommend providing no more than 150cc liquid at a time and encourage slow, small, frequent sips. Encourage boost as able. Hypertension, chronic. * Blood pressures well controlled and borderline low at times. Continue to monitor closely. Diabetes, chronic. * Continue to monitor BGMs, especially in light of TPN. Sliding scale insulin as indicated. Intractable abdominal pain and nausea with draining abdominal wound, chronic. * Pain control per Dr. Woo. Continue Zofran and Phenergan for nausea/ vomiting. Decubitus ulcer, coccyx, chronic. * Wound care team to continue to monitor. Monitor closely for signs of worsening. Continue to encourage patient to do position adjustments frequently , at least Q2 hours. Pancreatic pseudocyst, chronic. * Unsuccessful attempt for endoscopic cyst gastrostomy for drainage on 05/01/17. Metastatic neuroendocrine tumor, s/p resection, chronic. 05/09/2017-I reviewed this chart, the patient history, and the BROADCAST OPERATIONS DIRECTOR's/PA's documented findings as above. We discussed and formulated the assessment and plan as above with the additions below. I've seen and examined the patient independently.-Dr. Olivier The patient states that she is doing okay. She is having some chronic abdominal pain but it is better this evening. She denies any shortness of breath or chest pain. She denies any current nausea. Mills catheter was removed and at the time that I saw her she had not urinated, but afterward she did have a large incontinence of urine. Bladder scan afterward showed about 150 ML's of urine present. She does not have bowel movements since she is nothing by mouth except for fluids. Vital signs were reviewed. She has a borderline mild tachycardia which on review of view [facility] records was present there as well. She has not had any fever. Blood pressure is okay. On exam the patient is mildly drowsy but in no acute distress. Oropharynx is moist. Neck is supple. Chest is clear to auscultation. Cardiovascular reveals a regular rhythm and a borderline tachycardic rate. Abdomen reveals an open abdominal wound with a clear dressing. There is some yellowish drainage. Extremities are free of edema. SCDs are in place. Regarding sepsis, continue current antibiotics. Regarding the patient's recent sepsis likely from abdominal source, will consult Dr. Puente to see the patient on Sunday. We'll continue to monitor white count. Continue TPN for malnutrition. Continue to monitor hemoglobin regarding anemia. Regarding acute kidney injury, the patient was seeing Dr. Massimo Pina at via [facility]. Her BUN over the past week was ranging from 59-85. I did discontinue ibuprofen that was started here to prevent worsening of acute kidney injury. We' ll need to monitor renal function and fluid status carefully, especially with Mills catheter out. 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 I did discuss the importance of accurate I&O's as much as is possible with her incontinence We'll monitor vital signs frequently and call parameters were placed We'll continue to monitor lab work fairly frequently. 05/12/2017--Dr. 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 The patient also had a new intra-abdominal fluid collection at that time that was 4.1 x 4.1 x 4.6 cm.-the patient has received 3 weeks of tigecycline. Decision made by Dr. Puente/Dr. Lewis of ID on 05/11 to hold further tigecycline. WBC decreased today. Leukocytosis, improved to 14K today, monitoring. Chronic anemia, Hb 7.7, may need PRBC if continued decline. Elevated BUN-trending down Protein calorie malnutrition-requiring TPN with planned rodent exterminator need, adjusting per pharmacy Hypertension Diabetes? Versus hyperglycemia from TPN--well controlled currently Chronic abdominal pain secondary to open abdominal wound and pancreatic pseudocyst--suspect not absorbing the po meds well, pain not controlled Decubitus ulcer Pancreatic pseudocyst with unsuccessful attempt for endoscopic cyst stress study on 05/01/2017 History of metastatic neuroendocrine tumor, status post resection History of recurrent acute kidney injury secondary to volume depletion from high output abdominal drainage Debility secondary to prolonged illness Plan Severe pain today and not really able to participate with therapy Not likely absorbing the po meds well, unit policy precludes IV narcotics, d/w Dr. Woo and will increase fentanyl patch to 100 mcg and monitor for improvement with that change. Continue TPN, will increase K and discuss with pharmacy re: total volume in the setting of high drain outputs. Hold further saline today unless evidence of volume depletion, overall volume status appears stable although difficult to assess in her. Recheck CBC, renal panel in AM and CMP Sunday. Continue to encourage participation with therapy. 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 The patient also had a new intra-abdominal fluid collection at that time that was 4.1 x 4.1 x 4.6 cm.-the patient has received 3 weeks of tigecycline. Decision made by Dr. Puente/Dr. Lewis of ID on 05/11 to hold further tigecycline. WBC decreased again today. Afebrile Leukocytosis, improved to 12K today, monitoring. Chronic anemia, Hb 7.5, may need PRBC if continued decline. Elevated BUN-trending down daily, no evidence of intravascular depletion, off saline currently Protein calorie malnutrition-requiring TPN with planned rodent exterminator need, adjusting per pharmacy, electrolytes stable today Hypertension per history, recent BP marginal in the 90-100 range systolic Diabetes? Versus hyperglycemia from TPN--well controlled currently Chronic abdominal pain secondary to open abdominal wound and pancreatic pseudocyst--suspect not absorbing the po meds well, pain not controlled Decubitus ulcer Pancreatic pseudocyst with unsuccessful attempt for endoscopic cyst stress study on 05/01/2017 History of metastatic neuroendocrine tumor, status post resection History of recurrent acute kidney injury secondary to volume depletion from high output abdominal drainage, volume status stable currently Debility secondary to prolonged illness Plan Continue with current pain control regimen, will defer any further changes to Dr. Woo, comfortable when resting Not likely absorbing the po meds well but has fentanyl patch, increased to 100 mcg on 05/12, monitor Hold any medications that would drop her blood pressure and monitor for signs of infection Continue TPN per pharmacy Hold further saline today unless evidence of volume depletion, labs and exam stable CBC, CMP in AM Continue to encourage participation with therapy. 05/15/17 Plan Continue with current pain control regimen, will defer any further changes to Dr. Woo, comfortable when resting Cory area of erythema to monitor of evidence of extension. Discussed with OT regarding assessing if there is any irritation or rubbing on the right rivas with patient's leg brace. Will evaluate if more padding as needed. Patient verbalizes this area of her leg is so uncomfortable. She is unable to work with therapy or stand. Regarding increased fever overnight, blood cultures have been drawn and are preliminary negative. Will continue to monitor. Leukocytosis remained stable and is trending down. Continue to monitor hemoglobin as this is slightly decreased, likely secondary to dilution given IV fluids overnight. Continue with wound care. Continue to encourage work with PT and OT for ongoing strengthening Will review current plan of care with attending as well as Dr. Woo in care rounds later today.
--- NOTE | 2017-05-15 15:48 | IRU Team Meeting ---
IRU Team Meeting - Nursing Vital Signs: Vital Signs - 24 hr 05/14/17 16:00 05/14/17 20:00 05/15/17 00:00 Temperature 98.9 F 101.4 F H 101.1 F H Pulse Rate 101 H 100 107 H Respiratory Rate 20 18 Blood Pressure 105/63 93/57 89/60 Pulse Oximetry 97 98 94 05/15/17 02:06 05/15/17 05:55 05/15/17 07:53 Temperature 100.5 F H 100.0 F 98.7 F Pulse Rate 100 98 98 Respiratory Rate 20 20 24 Blood Pressure 98/56 98/62 101/65 Pulse Oximetry 96 95 98 05/15/17 13:00 Temperature 98.5 F Pulse Rate 102 H Respiratory Rate 18 Blood Pressure 102/61 Pulse Oximetry 99 Current Medications: Acetaminophen (Tylenol) 1,000 mg PO Q6H PRN PRN Reason: Pain Last Admin: 05/12/17 11:05 Dose: 1,000 mg Acetaminophen (Tylenol Supp) 650 mg [place] Q4H PRN PRN Reason: Fever Albuterol/Ipratropium (Duoneb) 3 ml AEROSOL QID PRN PRN Reason: Shortness of air/wheezing Cetirizine HCl (Zyrtec) 5 mg PO DAILY [facility] Last Admin: 05/15/17 08:10 Dose: 5 mg Diclofenac Sodium (Voltaren) 1 applic TP QID [facility] Last Admin: 05/15/17 13:47 Dose: 1 applic Diphenhydramine HCl (Benadryl) 25 mg IVP Q8H PRN PRN Reason: Itching Last Admin: 05/15/17 02:00 Dose: 25 mg Enoxaparin Sodium (Lovenox) 40 mg SQ DAILY [facility] Last Admin: 05/15/17 10:08 Dose: 40 mg Fentanyl (Duragesic Patch) 100 mcg TD Q3D [facility] Last Admin: 05/15/17 14:36 Dose: 100 mcg Fentanyl Citrate (Duragesic Patch Removal) 1 removal TD Q3D [facility] Last Admin: 05/15/17 14:36 Dose: 1 removal Furosemide (Lasix) 20 mg IVP DAILY PRN PRN Reason: NEEDED Glucagon (Glucagen) 1 mg IM PRN PRN PRN Reason: hypoglycemia Heparin Sodium (Beef Lung) (Heparin Flush) 100 unit IV BID [facility] Last Admin: 05/14/17 22:48 Dose: 100 unit Heparin Sodium (Beef Lung) (Heparin Flush) 100 unit IV BID [facility] Last Admin: 05/15/17 10:09 Dose: 100 unit Heparin Sodium (Beef Lung) (Heparin Flush) 100 unit IV BID [facility] Last Admin: 05/15/17 10:10 Dose: Not Given Heparin Sodium (Beef Lung) (Heparin Flush) 100 unit IV PRN PRN Last Admin: 05/15/17 10:10 Dose: 100 unit Hydroxyzine HCl (Atarax) 25 mg PO QID PRN PRN Reason: Itching Last Admin: 05/15/17 11:19 Dose: 25 mg Fat Emulsion Intravenous (Intralipid 20%) 100 mls @ 50 mls/hr IV 1600 [facility] Last Admin: 05/14/17 16:44 Dose: 50 mls/hr Sodium Chloride 120 meq/Sodium Acetate 80 meq/Potassium Chloride 20 meq/ Potassium Phosphate 20 meq/Magnesium Sulfate 16 meq/Calcium Gluconate 9.3 meq/ Multivitamins/Minerals 10 ml/Chromium/Copper/Manganese/Zinc 1 ml/ Folic Acid 2 mg/Thiamine HCl 100 mg/ Potassium Acetate 40 meq/ Amino Acids/Electrolytes 2, 140.9455 mls @ 75 mls/hr IV .Q24H [facility] Last Admin: 05/14/17 16:44 Dose: 75 mls/hr Insulin Aspart (Novolog) 0 unit SQ PRN PRN PRN Reason: Protocol Last Admin: 05/15/17 14:35 Dose: 2 unit Lorazepam (Ativan Inj) 0.25 mg IM Q6H PRN PRN Reason: Anxiety Miconazole Nitrate (Desenex) 1 applic TP BID [facility] Last Admin: 05/15/17 09:51 Dose: 1 applic Nystatin (Mycostatin) 1 applic TP BID [facility] Last Admin: 05/15/17 13:43 Dose: Not Given Ondansetron HCl (Zofran Po) 4 mg PO Q6H PRN PRN Reason: Nausea Last Admin: 05/15/17 13:42 Dose: 4 mg Oxycodone HCl (Roxicodone *Ir*) 5 - 10 mg PO Q4HPRN PRN PRN Reason: Pain Last Admin: 05/15/17 13:42 Dose: 10 mg Polyethylene Glycol (Miralax) 17 gm PO DAILY PRN PRN Reason: Constipation Promethazine HCl (Phenergan Inj) 25 mg IVP Q4H PRN PRN Reason: NAUSEA & VOMITING Last Admin: 05/15/17 10:06 Dose: 25 mg Saliva Substitute (Biotene Moisturizing Mouth [place]) 4 spray PO QID PRN PRN Reason: Dry mouth Comments: Team meeting occurred in the patient's room with the patient and her present. Laura continues to complain of severe pain in the anterior right ankle. Redness is a bit progressive. Had a decreased urine output last night and was given a fluid bolus. This did help her urine output. Blood pressure is stable. White blood cell count is decreased to 11,000. Hemoglobin also down at 7.1. She has had less leakage from her abdominal wound. Continues to struggle with a lot of nausea and vomiting after drinking. Etiology of the ankle pain remains unclear. Plain radiograph will be obtained along with uric acid and orthopedic evaluation. Dietitian is seen patient as well. Patient requests pured food. However with her vomiting we do not recommend that at present. She remains on TPN. - Physical Therapy Comments: Patient is being seen by physical therapy. She made some progress last week but has regressed a bit. In particular her transfers require more assistance. She requires frequent encouragement to participate in therapy. She frequently will tell therapist to come back at a later time. We reinforced the importance of participating in therapy as much as possible. - Occupational Therapy Lower Body Dressing Comment: Occupational therapy is seeing the patient. She sit for less than 10 seconds. She has made minimal progress this week. We encouraged her to continue to improve in this area and asked her what her goals were. - Care Plan Anticipated Length of Stay: 7 Anticipated DC Destination: Home, Self Care Interventions/Goals: Barriers to progress: 1. Pain in the abdomen 2. Pain in right ankle 3. Recurrent nausea and vomiting 4. Consistent participation and attitude Goals: 1. Pain relief in her ankle from 10 out of 10 down to 7 out of 10 2. Being able to transfer out of bed safely to supervision level 3. Decrease frequency of declining therapy I certify that I personally led the interdisciplinary team meeting and agree with comments, barriers and goals indicated.
[2017-05-15] MEDS ORDERED: GADOBUTROL 10mMol/10ml INJECTION IVP ONE (16:49)
[2017-05-15] MEDS ORDERED: SALINE FLUSH 10ml SYRINGE ONE (16:49)
[2017-05-15] MEDS: [UNRECOGNIZED DRUG - OTHER] IV SCH (17:44)
[2017-05-15] MEDS: FAT EMULSION 20% 100 ML IV SCH (17:44)
[2017-05-15] MEDS: SODIUM CHLORIDE IV SCH (17:44)
[2017-05-15] MEDS: SODIUM ACETATE IV SCH (17:44)
[2017-05-15] MEDS: POTASSIUM CHLORIDE IV SCH (17:44)
[2017-05-16] MEDS: DiphenhydrAMINE 50 MG/ML INJECTION IVP PRN ×2 (05:01→23:31)
[2017-05-16] MEDS: PROMETHAZINE 25 MG INJECTION IVP PRN ×3 (05:08→23:39)
[2017-05-16] MEDS: Oxycodone *IR* 5 MG TABLET PO PRN ×4 (05:20→23:29)
[2017-05-16] MEDS: DICLOFENAC 1% TOP GEL 100gm TP SCH ×4 (05:22→16:49)
--- NOTE | 2017-05-16 08:22 | Pharmacy Consult-TPN/PPN ---
Pharmacy Consult-TPN/PPN - Laboratory Information Chemistry Turbidity < 20 (0-20) 05/16/17 06:20 Sodium 136 MEQ/L (134-144) 05/16/17 06:20 Potassium 4.1 MEQ/L (3.6-5) 05/16/17 06:20 Chloride 101 MEQ/L (98-107) 05/16/17 06:20 Carbon Dioxide 29 MEQ/L (22-30) 05/16/17 06:20 Anion Gap 6 MEQ/L (5-15) 05/16/17 06:20 BUN 28.0 MG/DL (7-17) H 05/16/17 06:20 Creatinine 0.8 MG/DL (0.7-1.2) 05/16/17 06:20 GFR Calculation 79 05/16/17 06:20 BUN/Creatinine Ratio 35 RATIO (6-26) H 05/16/17 06:20 Glucose 90 MG/DL (65-110) 05/16/17 06:20 Glucometer 135 mg/dL (65-110) 05/15/17 21:26 Calculated Osmolality 268 MOSM/KG (261-280) 05/16/17 06:20 Uric Acid 3.6 MG/DL (2.5-7.5) 05/15/17 01:01 Calcium 8.0 MG/DL (8.4-10.2) L 05/16/17 06:20 Phosphorus 3.5 MG/DL (2.5-4.5) 05/14/17 04:15 Magnesium 2.2 MG/DL (1.6-2.3) 05/14/17 04:15 Total Bilirubin 1.10 MG/DL (0.20-1.30) 05/15/17 01:01 Icterus Index < 2 (0-7) 05/16/17 06:20 AST 80 U/L (14-36) H 05/15/17 01:01 ALT 100 U/L (9-52) H 05/15/17 01:01 Alkaline Phosphatase 390 U/L (38-126) H 05/15/17 01:01 Total Protein 5.4 G/DL (6.3-8.2) L 05/15/17 01:01 Albumin 1.9 G/DL (3.5-5.0) L 05/15/17 01:01 Globulin 3.5 G/DL (2.4-3.6) 05/15/17 01:01 Albumin/Globulin Ratio 0.5 RATIO (1.1-2.2) L 05/15/17 01:01 Prealbumin 8.5 MG/DL (17.6-36.0) L 05/09/17 04:59 Specimen Hemolysis < 15 (0-25) 05/16/17 06:20 Intake and Output 05/15/17 05/16/17 05/17/17 06:59 06:59 06:59 Intake Total 3528 / 3528 2595 / 2595 Output Total 1350 / 1350 950 / 950 Balance 2178 / 2178 1645 / 1645 Intake: IV 2440 / 2440 1875 / 1875 Intralipid 20% 100 ml @ 100 / 100 50 mls/hr IV 1600 SEAN Rx# :[id number] Normal Saline 500 ml @ 500 / 500 999.9 mls/hr IV .Q30M SEAN Rx#:[id number] Sodium Chloride Conc 4 1840 / 1840 1875 / 1875 Meq/ml Sodium Acetate 80 Meq KCl 20 Meq K Phos Inj 20 Meq Magnesium Sulfate Inj 16 Meq Calcium Gluconate 9.3 Meq Infuvite Adult 10 ml Multi-Trace Elements 1 ml Folate 2 mg Vitamin B-1 100 mg Potassium Acetate Inj 40 Meq/20 ml In TPN - Custom Formula 2,000 ml @ 75 mls/hr IV .Q24H SEAN Rx#:[id number] Oral 1088 / 1088 720 / 720 Output: Stool 1100 / 1100 500 / 500 Emesis 100 / 100 Urine Amount (Catheter) 250 / 250 350 / 350 KB has been on TPN care home therapy. Electrolytes continue to remain stable. BS remains WNL's. Has Novolog Correction Low Dose Scale ordered but infrequently has to be given it. Wt is stable at 70kg. I/O stable as well. Will continue present TPN Formula, via PICC line. Infusing at 75 ml/hr. This gives approximately 1730 kcal per day. Also receiving Fat Emulsion 20% 100ml, one bag daily to prevent EFAD and add a few more calories. Present formula is: Amino Acid 8.5% 1000ml Dextrose 50% 1000ml Sodium Chloride 120mEq per bag Sodium Acetate 80mEq Potassium Chloride 20mEq Potassium Phosphate 20mEq Potassium Acetate 40mEq Magnesium Sulfate 16mEq Calcium Gluconate 9.3mEq MultiVitamins 10ml Trace Elements 1ml Folic Acid 2mg Thiamine 100mg Thank you.
[2017-05-16] MEDS: ACETAMINOPHEN 500 MG TABLET PO PRN (08:36)
--- NOTE | 2017-05-16 08:54 | Progress Note ---
Subjective Date: 05/16/17 Subjective: Mrs. Giron is seen at the breakfast table. She had a fever to 101.4 on the night of 05/14. She states that she didn't know she was having fever and didn't feel particularly bad. Denies chills. She is still having some intermittent vomiting. Blood cultures were drawn and are NGTD. She is having R ankle pain, and MRI was ordered, report pending. Dr. Gayle has seen her to evaluate this. X-ray shows diffuse osteoporosis vs infection vs multiple myeloma. She continues to have abdominal pain. Exam Vital Signs: Temperature 98.5 F 05/16/17 08:23 Pulse Rate 112 H 05/16/17 08:23 Respiratory Rate 20 05/16/17 08:23 Blood Pressure 99/74 05/16/17 08:23 Pulse Oximetry 99 05/16/17 08:23 Oxygen Delivery Method Room Air Fraction of Inspired Oxygen 21 Height/Weight/BMI: Height 1.57 m Weight 70 kg Body Mass Index 26.2 - Constitutional Present: no acute distress - Routine HEENT Exam Head: Present: normocephalic, atraumatic, cushingoid faces (slight) Eye: Present: EOMI ENT: Present: mucous membranes moist, dentition normal - Routine Neck Exam Present: supple - Routine Respiratory Exam Present: decreased breath sounds (at bases), CTA bilaterally - Routine Cardiovascular Exam Present: RRR. Absent: murmur - Routine Abdominal Exam Present: wound (large area of open abdomen covered by wound field services manager, full abdominal exam deferred) - Routine Exam Comments: she has a christine - Routine Extremities Exam Present: edema (trace LEs), joint swelling (mild, R ankle, no obvious joint effusion) Comments: she has muscle atrophy LEs - Routine Skin Exam Absent: rash Comments: LUE PICC site ok - Routine Neurological Exam Present: alert, oriented X3, CN II-XII intact - Routine Psychiatric Exam Present: normal affect, normal thought process Results - Labs CBC & Chem 7: 05/16/17 04:57 05/16/17 06:20 Microbiology Results: Microbiology 05/14/17 22:43 Cath/Port/Line/Picc Blood Culture - Preliminary No Growth After 1 Day 05/14/17 22:46 Cath/Port/Line/Picc Blood Culture - Preliminary No Growth After 1 Day Impression: * Recent sepsis, NOS, likely secondary to pancreatic pseudocyst, unable to be drained on 05/01. * Intra-abdominal fluid collection (4.1 x 4.1 x 4.6cm) * Leukocytosis, improving * Nausea/vomiting, improved after stopping Tygacil. * Abdominal pain, chronic, but worse per patient. * H/o urine culture with >100K of Kleb. pneumoniae, ESBL positive, suspect colonization. * H/o rash on Merrem, Vancomycin, PCN, cephalosporins * H/o CLABSI with E. faecalis, s/p CVL removal 03/26, treated with Tygacil (due to allergies) through 04/09. 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 The cause of her fever is not clear. Her WBC is normal. Atelectasis is a potential cause of fever. Await MRI report of R ankle. Clinically, it does not appear to be infected. Sepsis Assessment - Evaluation Sepsis screening result: No Definite Risk
--- NOTE | 2017-05-16 09:02 | Magnetic Resonance Report ---
Indication: RLE erythema. R/O infection PROCEDURE: MR ankle RT wo/w con: Encounter: Initial Comparison: Ankle radiographs from the same date Technique: Multiplanar multisequence MR imaging of the right ankle was performed with and without contrast. Contrast: 7 mL Gadavist FINDINGS: Motion artifact limits the exam significantly The Achilles tendon is normal in morphology and signal. Extensor tendons are normal. The posterior tibialis, flexor digitorum, and flexor hallucis longus tendons are normal. The peroneus longus and brevis tendons are normal. The deltoid ligament is intact. The anterior talofibular, calcaneofibular, and posterior talofibular ligaments are intact. The plantar fascia is normal. Bone marrow shows subtle areas of enhancement in the medial malleolus and talar dome corresponding with the areas of lucency on the radiographs. There is no surrounding bone marrow edema or discrete measurable lesion present. Subcutaneous edema around the anterior and lateral sides of the ankle. IMPRESSION: 1. 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 2. Mild subcutaneous edema is nonspecific but could represent a cellulitis in the appropriate clinical setting. .
[2017-05-16] MEDS ORDERED: FALL RISK - PHARMACY CONSULT XX ONE (10:08)
[2017-05-16] MEDS: ENOXAPARIN 40 MG/0.4 ML INJECTION SQ SCH ×2 (10:40→23:28)
[2017-05-16] MEDS: CETIRIZINE 10 MG TABLET PO SCH (10:41)
[2017-05-16] MEDS: MICONAZOLE 2% POWDER 45gm TP SCH ×2 (10:42→23:28)
--- NOTE | 2017-05-16 10:52 | IRU Progress Note ---
- Subjective/Serverity of Illness Laura is much more comfortable this morning. She was evaluated for she was sitting up in her wheelchair. Continues to have some leaking from the abdominal dressing. She was seen by Dr. Puente, infectious disease yesterday. Dr. Puente did not note any active infection and recommended no antibiotics at present. Her blood cultures are negative to date. Has low-grade temperature couple of nights ago. She states that her right ankle is much improved. She feels as though the Voltaren gel has been of benefit for her. It is much less red and less tender to palpate. Still a little puffy. She has been seen by Dr. Gayle, orthopedics as well. MRI was ordered. This shows disuse osteoporosis as well as some puffiness in the soft tissue. Update on medical issues as follows: 1. Pain management in view of her abdominal pain: We increased her fentanyl patch to 100 g every 3 days about 4 days ago. She continues to have discomfort. We discussed with her the importance of not using intravenous narcotics. She is still on oral Percocet. We did mention the possibility of oral morphine yesterday when she was having such severe ankle pain. However we will hold on this at the present time since her ankle pain is improved. 2. 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 Patient is on TPN which will require close monitoring. Continues on TPN monitored by pharmacy. 3. 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 This is unable to be drained. She has had no further episodes of true sepsis. Had a low-grade temperature a couple nights ago without recurrence. Was seen by infectious disease and no antibiotics are recommended at present. 4. Recent hyponatremia - improved 5. 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 Exam Vital Signs: Temperature 98.5 F 05/16/17 08:23 Pulse Rate 112 H 05/16/17 08:23 Respiratory Rate 20 05/16/17 08:23 Blood Pressure 99/74 05/16/17 08:23 Pulse Oximetry 99 05/16/17 08:23 Oxygen Delivery Method Room Air Fraction of Inspired Oxygen 21 Height/Weight/BMI: Height 1.57 m Weight 70 kg Body Mass Index 26.2 - Constitutional Present: mild distress Comments: The patient is awake, alert and oriented and in no acute distress be on her usual abdominal pain. She seems to be much more positive and feels better today. She is more interactive and communicative. Pupils are equal. The neck is supple. Chest: Clear to auscultation bilaterally. Cor: RR with no gallop, click nor murmur Abd: Was unable to examine her abdomen very well when she was sitting up in the wheelchair. Does have some drainage from the area. Extremities: Does have some bilateral foot drop due to prolonged bedrest etc. The right ankle is much improved. It is no longer red nor warm. It is much less tender to palpation. It is very slightly puffy. Results IRU - Labs Labs: Reviewed her hemoglobin which is improved to 7.6. White count remains relatively low for her at 11,000. Review blood cultures which remain negative to date. Reviewed chemistries showing BUNs of 28 and a normal creatinine. Potassium is normal. Sepsis Assessment - Evaluation Sepsis screening result: No Definite Risk IRU A/P (1) Myopathy Problem details: Critical illness myopathy Current visit: Yes Status: Acute Continues to demonstrate critical illness myopathy with muscle weakness and foot drop bilaterally. Working with therapy. Continues to require significant encouragement. (2) Open abdominal wall wound Qualifiers: Encounter type: subsequent encounter Qualified Code(s): S31.109D - Unspecified open wound of abdominal wall, unspecified quadrant without penetration into peritoneal cavity, subsequent encounter Current visit: Yes Status: Chronic Abdominal wound is unchanged. Drainage noted. (3) Diabetes Qualifiers: Diabetes mellitus type: due to underlying condition Diabetes mellitus complication status: without complication Diabetes mellitus penitentiary insulin use: without penitentiary use Qualified Code(s): E08.9 - Diabetes mellitus due to underlying condition without complications Current visit: No Status: Chronic (4) Protein-calorie malnutrition, moderate Current visit: Yes Status: Chronic She remains on TPN which requires close monitoring. Blood work reviewed and is stable. (5) Ankle pain, right Qualifiers: Chronicity: acute Qualified Code(s): M25.571 - Pain in right ankle and joints of right foot Current visit: Yes Status: Resolved MRI showed nothing dramatic. Has disuse osteoporosis. Ankle pain is markedly improved today. She does believe the Voltaren is helpful so we will continue that for the short-term. No current evidence of active infection/inflammation. The redness and warmth has resolved. I'm not certain exactly what to make of the ankle pain but I am thankful is improved. Could've just been a strain situation I suppose. DVT Prophylaxis: SCD's Resuscitation Status: Full Code - Course Hospital Course: Yevgeniy Woo MD: 05/08/17 10:09 Initiating physical therapy and occupational therapy. Patient is cooperative this morning. Complains of chronic abdominal pain. Limiting oral intake in an effort to reduce leakage from the wound and allow patient to participate in therapy. She would like to increase the restriction from 120 up to 150 ML per hour. This will be allowed. This is excluding intake at mealtime. We will leave a cup at her bedside and I asked her to simply sip on this and not take it all at once. She agreed to do this. White count 14,000 but without evidence of active infection. She remains afebrile. Pain management is with patches and oral agents only. 05/09/17 11:50 Continues to require significant encouragement to participate with therapy. Walked 6 ft. Abd pain is remaining as ongoing pain issue. Protein calorie malnutrition addressed with TPN. 05/10/17 11:19 She is making slow progress. White count improved to 13,000. Appreciate hospitalists assistance. Lower extremity dressing is improved. Walking distance improved. Transfers minimally improved. Significant concerns about patient motivation and safety awareness remains. Abdominal pain, nausea and vomiting impact her therapy progress. 05/14/17 10:48 Has multiple medical problems. Making very slow progress. Frequently refuses therapy or at least postpones it. Requires much encouragement to participate. Increased fentanyl patch in an effort to improve her pain management. Continues on TPN. White count improved to 12,000. 05/15/17 10:39 Continues to be very complex. Had poor urine output but responded to fluid bolus. Requires total assistance for many ADLs. Increase fentanyl patch 2-3 days ago. Hopefully that will provide additional pain improvement. White count is improved. Hemoglobin down at 7.1. Does have right ankle pain now which impedes her progress. 05/16/17 10:54 Continues on TPN. Hemoglobin improved at 7.6. White count remains relatively low for her at 11,000. Right ankle pain appears to virtually have resolved. MRI shows disuse osteoporosis only. No evidence of active infection nor inflammation. Seems to have a better attitude today. We will continue current pain management although we did discuss the possibility of oral morphine yesterday. If we do that she will probably be able to tolerate the morphine concentrate and a sublingual or a lingual route. However we will hold off for the time being. Continues to require close medical management of multiple medical conditions. - Interventions to Obtain Goals PT Treatment Plan: Balance/Proprioception, Functional Activities, Gait Training , Patient/Family Education, Therapeutic Exercise OT Treatment Plan: ADL (Basic Care), Balance Training, Pt./Family Education, UE Functional Training Goals Progress/Modifications: We will hold off on oral morphine at present. The ankle is markedly improved. We will continue to encourage her with regard to therapy and to work to get stronger. Had a good discussion with the patient and her yesterday at team meeting. Desires to go home if at all possible.
--- NOTE | 2017-05-16 11:15 | XRay Report ---
Indication: Check picc placement from outside facility PROCEDURE: XR chest 1V: Encounter: Initial Comparison: April 15, 2017 Findings: Left PICC line has been replaced or repositioned with the tip now projecting over the right atrium. Lungs are mildly hypoinflated but grossly clear. No pneumothorax or effusion. Heart size and mediastinal contours are stable. Pulmonary vascularity appears normal. Impression: Left PICC line tip projects over the right atrium. This could be retracted by 1.5 to 2 cm to reside at the expected cavoatrial junction. .
[2017-05-16] MEDS: INSULIN ASPART SQ PRN (11:35)
--- NOTE | 2017-05-16 13:28 | Progress Note ---
Subjective: Laura is seen this afternoon while napping. She does arouse and reports overall RLE pain is much improved. Erythema of the anterior RLE is now gone. She states overall she is feeling better. She does appear somewhat tired this afternoon as she does dose off during exam. She has remained afebrile and is mildly tachycardic however this has been ongoing since admission. Objective Vital signs: Temperature 98.6 F 05/16/17 12:48 Pulse Rate 104 H 05/16/17 12:48 Respiratory Rate 16 05/16/17 12:48 Blood Pressure 113/71 05/16/17 12:48 Pulse Oximetry 98 05/16/17 12:48 Height/Weight/BMI: Height 1.57 m Weight 70 kg Body Mass Index 26.2 - Constitutional Present: no acute distress, well nourished, well developed - Routine HEENT Exam Eye: Present: EOMI ENT: Present: mucous membranes moist, dentition normal - Routine Respiratory Exam Present: CTA bilaterally. Absent: wheezes - Routine Cardiovascular Exam Present: RRR, S1, S2. Absent: murmur - Routine Abdominal Exam Present: soft, normoactive bowel sounds, non distended. Absent: tenderness Comments: Dressing intact over open abdominal wound. Attached to suction - Routine Extremities Exam Present: normal capillary refill - Routine Skin Exam Present: intact, dry, warm - Routine Neurological Exam Present: alert, oriented X3, CN II-XII intact - Routine Lymphatic Exam Lymphatic: Absent: adenopathy - Routine Psychiatric Exam Present: normal affect Results - Labs CBC & Chem 7: 05/16/17 04:57 05/16/17 06:20 Microbiology Results: Microbiology 05/14/17 22:43 Cath/Port/Line/Picc Blood Culture - Preliminary No Growth After 1 Day 05/14/17 22:46 Cath/Port/Line/Picc Blood Culture - Preliminary No Growth After 1 Day Assessment and Plan (1) Open abdominal wall wound Current visit: Yes Status: Chronic (2) Myopathy Problem details: Critical illness myopathy Current visit: Yes Status: Acute Assessment and Plan: Impression RLE- erythema 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 The patient also had a new intra-abdominal fluid collection at that time that was 4.1 x 4.1 x 4.6 cm.-the patient has received 3 weeks of tigecycline. Decision made by Dr. Puente/Dr. Lewis of ID on 05/11 to hold further tigecycline. WBC decreased again today Leukocytosis Chronic anemia Elevated BUN-trending down daily, no evidence of intravascular depletion, off saline currently Protein calorie malnutrition-requiring TPN with planned termite treater need, adjusting per pharmacy, electrolytes stable today Hypertension per history, recent BP marginal in the 90-100 range systolic Diabetes? Versus hyperglycemia from TPN--well controlled currently Chronic abdominal pain secondary to open abdominal wound and pancreatic pseudocyst--suspect not absorbing the po meds well, pain not controlled Decubitus ulcer Pancreatic pseudocyst with unsuccessful attempt for endoscopic cyst stress study on 05/01/2017 History of metastatic neuroendocrine tumor, status post resection History of recurrent acute kidney injury secondary to volume depletion from high output abdominal drainage, volume status stable currently Debility secondary to prolonged illness Plan- 05/16/17 Erythema of RLE is gone and pain has greatly improved. MRI of the Right ankle was obtained and reveled diffuse osteoporosis with mild subQ edema. Since the erythema has improved will hold off on any antibiotic treatment. She has remained afebrile and WBC count remains stable. Appreciated recommendations by Dr Puente to avoid antibiotics if possible. Appreciate Dr Gayle consultation for further recommendations. Continue with TPN for nutrition. Carefully monitor electrolytes. Pain management as per Dr Woo Continue to encourage PT/OT for ongoing strengthening Sepsis Assessment - Evaluation Sepsis screening result: No Definite Risk Hospital Course Summary Disclaimer: The visit summary below is not to be considered part of the above Progress Note. Hospital Course: 05/09/17 10:24 Impression: Generalized debility and myopathy secondary to prolonged hospitalizations, acute. * Continue to encourage participation in therapies as patient's goal is to return home with the ability to dress self and ambulate short distances. Therapy reports that she has been doing well and was able to walk 6 steps yesterday. Continue to provide safe and supportive environment. Recent sepsis secondary to E. faecalis CLABSI and recurrent peritonitis due to enteric leak, acute. * Continue tigecycline per Dr. Lewis, to be completed on 05/19. Will discontinue Mills catheter today. Will provide a commode initially to encourage successful toileting until patient strength and endurance improved. Leukocytosis, persistent, present on admission. * WBC on admission 14.4. Continue to monitor trends periodically throughout admission. Patient remains afebrile and WBC trending down as compared to prior recent labs from previous admission. Recheck CBC in AM to monitor blood count trends. Hyperphosphoremia, acute. * Phosphorus elevated at 4.9. Pharmacy notified and will adjust TPN. Will recheck in AM as well as BMP to monitor electrolytes and renal function and continue to monitor trends. Anemia, chronic secondary to chronic disease. * Present on admission with hemoglobin 9.3. Improved from prior admissions. Monitor periodically throughout admission. Moderate protein calorie malnutrition, chronic. * Prealbumin 8.5 on admission. Continue TPN per pharmacy. As patient continues to vomit with large amounts of fluids orally, recommend providing no more than 150cc liquid at a time and encourage slow, small, frequent sips. Encourage boost as able. Hypertension, chronic. * Blood pressures well controlled and borderline low at times. Continue to monitor closely. Diabetes, chronic. * Continue to monitor BGMs, especially in light of TPN. Sliding scale insulin as indicated. Intractable abdominal pain and nausea with draining abdominal wound, chronic. * Pain control per Dr. Woo. Continue Zofran and Phenergan for nausea/ vomiting. Decubitus ulcer, coccyx, chronic. * Wound care team to continue to monitor. Monitor closely for signs of worsening. Continue to encourage patient to do position adjustments frequently , at least Q2 hours. Pancreatic pseudocyst, chronic. * Unsuccessful attempt for endoscopic cyst gastrostomy for drainage on 05/01/17. Metastatic neuroendocrine tumor, s/p resection, chronic. 05/09/2017-I reviewed this chart, the patient history, and the SENIOR [employer]ERGY [employer]ADER's/PA's documented findings as above. We discussed and formulated the assessment and plan as above with the additions below. I've seen and examined the patient independently.-Dr. Olivier The patient states that she is doing okay. She is having some chronic abdominal pain but it is better this evening. She denies any shortness of breath or chest pain. She denies any current nausea. Mills catheter was removed and at the time that I saw her she had not urinated, but afterward she did have a large incontinence of urine. Bladder scan afterward showed about 150 ML's of urine present. She does not have bowel movements since she is nothing by mouth except for fluids. Vital signs were reviewed. She has a borderline mild tachycardia which on review of view [facility] [place] records was present there as well. She has not had any fever. Blood pressure is okay. On exam the patient is mildly drowsy but in no acute distress. Oropharynx is moist. Neck is supple. Chest is clear to auscultation. Cardiovascular reveals a regular rhythm and a borderline tachycardic rate. Abdomen reveals an open abdominal wound with a clear dressing. There is some yellowish drainage. Extremities are free of edema. SCDs are in place. Regarding sepsis, continue current antibiotics. Regarding the patient's recent sepsis likely from abdominal source, will consult Dr. Puente to see the patient on Sunday. We'll continue to monitor white count. Continue TPN for malnutrition. Continue to monitor hemoglobin regarding anemia. Regarding acute kidney injury, the patient was seeing Dr. Massimo Pina at via [facility] [place]. Her BUN over the past week was ranging from 59-85. I did discontinue ibuprofen that was started here to prevent worsening of acute kidney injury. We' ll need to monitor renal function and fluid status carefully, especially with Mills catheter out. 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 I did discuss the importance of accurate I&O's as much as is possible with her incontinence We'll monitor vital signs frequently and call parameters were placed We'll continue to monitor lab work fairly frequently. 05/12/2017--Dr. 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 The patient also had a new intra-abdominal fluid collection at that time that was 4.1 x 4.1 x 4.6 cm.-the patient has received 3 weeks of tigecycline. Decision made by Dr. Puente/Dr. Lewis of ID on 05/11 to hold further tigecycline. WBC decreased today. Leukocytosis, improved to 14K today, monitoring. Chronic anemia, Hb 7.7, may need PRBC if continued decline. Elevated BUN-trending down Protein calorie malnutrition-requiring TPN with planned usp need, adjusting per pharmacy Hypertension Diabetes? Versus hyperglycemia from TPN--well controlled currently Chronic abdominal pain secondary to open abdominal wound and pancreatic pseudocyst--suspect not absorbing the po meds well, pain not controlled Decubitus ulcer Pancreatic pseudocyst with unsuccessful attempt for endoscopic cyst stress study on 05/01/2017 History of metastatic neuroendocrine tumor, status post resection History of recurrent acute kidney injury secondary to volume depletion from high output abdominal drainage Debility secondary to prolonged illness Plan Severe pain today and not really able to participate with therapy Not likely absorbing the po meds well, unit policy precludes IV narcotics, d/w Dr. Woo and will increase fentanyl patch to 100 mcg and monitor for improvement with that change. Continue TPN, will increase K and discuss with pharmacy re: total volume in the setting of high drain outputs. Hold further saline today unless evidence of volume depletion, overall volume status appears stable although difficult to assess in her. Recheck CBC, renal panel in AM and CMP Sunday. Continue to encourage participation with therapy. 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 The patient also had a new intra-abdominal fluid collection at that time that was 4.1 x 4.1 x 4.6 cm.-the patient has received 3 weeks of tigecycline. Decision made by Dr. Puente/Dr. Lewis of ID on 05/11 to hold further tigecycline. WBC decreased again today. Afebrile Leukocytosis, improved to 12K today, monitoring. Chronic anemia, Hb 7.5, may need PRBC if continued decline. Elevated BUN-trending down daily, no evidence of intravascular depletion, off saline currently Protein calorie malnutrition-requiring TPN with planned usp need, adjusting per pharmacy, electrolytes stable today Hypertension per history, recent BP marginal in the 90-100 range systolic Diabetes? Versus hyperglycemia from TPN--well controlled currently Chronic abdominal pain secondary to open abdominal wound and pancreatic pseudocyst--suspect not absorbing the po meds well, pain not controlled Decubitus ulcer Pancreatic pseudocyst with unsuccessful attempt for endoscopic cyst stress study on 05/01/2017 History of metastatic neuroendocrine tumor, status post resection History of recurrent acute kidney injury secondary to volume depletion from high output abdominal drainage, volume status stable currently Debility secondary to prolonged illness Plan Continue with current pain control regimen, will defer any further changes to Dr. Woo, comfortable when resting Not likely absorbing the po meds well but has fentanyl patch, increased to 100 mcg on 05/12, monitor Hold any medications that would drop her blood pressure and monitor for signs of infection Continue TPN per pharmacy Hold further saline today unless evidence of volume depletion, labs and exam stable CBC, CMP in AM Continue to encourage participation with therapy. 05/15/17 Plan Continue with current pain control regimen, will defer any further changes to Dr. Woo, comfortable when resting Cory area of erythema to monitor of evidence of extension. Discussed with OT regarding assessing if there is any irritation or rubbing on the right rivas with patient's leg brace. Will evaluate if more padding as needed. Patient verbalizes this area of her leg is so uncomfortable. She is unable to work with therapy or stand. Regarding increased fever overnight, blood cultures have been drawn and are preliminary negative. Will continue to monitor. Leukocytosis remained stable and is trending down. Continue to monitor hemoglobin as this is slightly decreased, likely secondary to dilution given IV fluids overnight. Continue with wound care. Continue to encourage work with PT and OT for ongoing strengthening Plan- 05/16/17 Erythema of RLE is gone and pain has greatly improved. MRI of the Right ankle was obtained and reveled diffuse osteoporosis with mild subQ edema. Since the erythema has improved will hold off on any antibiotic treatment. She has remained afebrile and WBC count remains stable. Appreciated recommendations by Dr Puente to avoid antibiotics if possible. Appreciate Dr Gayle consultation for further recommendations. Continue with TPN for nutrition. Carefully monitor electrolytes. Pain management as per Dr Woo Continue to encourage PT/OT for ongoing strengthening
[2017-05-16] MEDS: SODIUM CHLORIDE IV SCH (16:48)
[2017-05-16] MEDS: SODIUM ACETATE IV SCH (16:48)
[2017-05-16] MEDS: POTASSIUM CHLORIDE IV SCH (16:48)
[2017-05-16] MEDS: FAT EMULSION 20% 100 ML IV SCH (16:48)
[2017-05-16] MEDS: [UNRECOGNIZED DRUG - OTHER] IV SCH (16:48)
[2017-05-17] MEDS: Oxycodone *IR* 5 MG TABLET PO PRN ×4 (04:40→18:15)
[2017-05-17] MEDS: DICLOFENAC 1% TOP GEL 100gm TP SCH ×5 (04:41→21:48)
[2017-05-17] MEDS: ONDANSETRON ODT 4 MG TABLET PO PRN (05:03)
[2017-05-17] MEDS: PROMETHAZINE 25 MG INJECTION IVP PRN ×2 (08:54→21:58)
[2017-05-17] MEDS: MICONAZOLE 2% POWDER 45gm TP SCH ×2 (09:27→21:55)
[2017-05-17] MEDS: CETIRIZINE 10 MG TABLET PO SCH (09:27)
--- NOTE | 2017-05-17 10:30 | Pharmacy Consult-TPN/PPN ---
Pharmacy Consult-TPN/PPN - Laboratory Information Chemistry Turbidity < 20 (0-20) 05/17/17 05:01 Sodium 136 MEQ/L (134-144) 05/17/17 05:01 Potassium 4.3 MEQ/L (3.6-5) 05/17/17 05:01 Chloride 100 MEQ/L (98-107) 05/17/17 05:01 Carbon Dioxide 30 MEQ/L (22-30) 05/17/17 05:01 Anion Gap 6 MEQ/L (5-15) 05/17/17 05:01 BUN 31.0 MG/DL (7-17) H 05/17/17 05:01 Creatinine 0.9 MG/DL (0.7-1.2) 05/17/17 05:01 GFR Calculation 69 05/17/17 05:01 BUN/Creatinine Ratio 34 RATIO (6-26) H 05/17/17 05:01 Glucose 88 MG/DL (65-110) 05/17/17 05:01 Glucometer 130 mg/dL (65-110) 05/16/17 20:56 Calculated Osmolality 268 MOSM/KG (261-280) 05/17/17 05:01 Uric Acid 3.6 MG/DL (2.5-7.5) 05/15/17 01:01 Calcium 8.2 MG/DL (8.4-10.2) L 05/17/17 05:01 Phosphorus 4.4 MG/DL (2.5-4.5) 05/17/17 05:01 Magnesium 2.2 MG/DL (1.6-2.3) 05/14/17 04:15 Total Bilirubin 1.10 MG/DL (0.20-1.30) 05/15/17 01:01 Icterus Index < 2 (0-7) 05/17/17 05:01 AST 80 U/L (14-36) H 05/15/17 01:01 ALT 100 U/L (9-52) H 05/15/17 01:01 Alkaline Phosphatase 390 U/L (38-126) H 05/15/17 01:01 Total Protein 5.4 G/DL (6.3-8.2) L 05/15/17 01:01 Albumin 1.9 G/DL (3.5-5.0) L 05/15/17 01:01 Globulin 3.5 G/DL (2.4-3.6) 05/15/17 01:01 Albumin/Globulin Ratio 0.5 RATIO (1.1-2.2) L 05/15/17 01:01 Prealbumin 6.9 MG/DL (17.6-36.0) L 05/17/17 05:01 Specimen Hemolysis < 15 (0-25) 05/17/17 05:01 Intake and Output 05/16/17 05/17/17 05/18/17 06:59 06:59 06:59 Intake Total 2695 / 2695 1970 / 1969 163 / 163 Output Total 950 / 950 3100 / 3100 Balance 1745 / 1745 -1130 / -1130 163 / 163 Intake: IV 1974 / 1974 1730 / 1730 Intralipid 20% 100 ml @ 100 / 100 50 mls/hr IV 1600 SEAN Rx# :[id number] Sodium Chloride Conc 4 1875 / 1875 1730 / 1730 Meq/ml Sodium Acetate 80 Meq KCl 20 Meq K Phos Inj 20 Meq Magnesium Sulfate Inj 16 Meq Calcium Gluconate 9.3 Meq Infuvite Adult 10 ml Multi-Trace Elements 1 ml Folate 2 mg Vitamin B-1 100 mg Potassium Acetate Inj 40 Meq/20 ml In TPN - Custom Formula 2,000 ml @ 75 mls/hr IV .Q24H SEAN Rx#:[id number] Oral 720 / 720 240 / 240 163 / 163 Output: Stool 500 / 500 2600 / 2600 Emesis 100 / 100 Urine Amount (Catheter) 350 / 350 500 / 500 Other: # Unmeasured Emesis 1 Episodes - Consult Information Electrolytes are acceptable this a.m. Will monitor potassium and phosphorous levels closely. Continue same custom TPN formula at 75mL per hour.
[2017-05-17] MEDS: ACETAMINOPHEN 500 MG TABLET PO PRN (11:20)
[2017-05-17] MEDS: ONDANSETRON 4 MG/2 ML INJECTION IV PRN (11:48)
--- NOTE | 2017-05-17 15:42 | Progress Note ---
Subjective: Laura is seen this morning sitting up in the w/c. She complains of having increased pain as it is time for her pain medication. She reports RLE discomfort to be minimal and erythema is gone. Vital signs remained stable. Pulse rate is often in the low 100s. He is afebrile. Hemoglobin 7.6 Objective Vital signs: Temperature 98.3 F 05/17/17 12:00 Pulse Rate 128 H 05/17/17 12:00 Respiratory Rate 16 05/17/17 12:00 Blood Pressure 117/66 05/17/17 12:00 Pulse Oximetry 97 05/17/17 12:00 Oxygen Delivery Method Room Air Fraction of Inspired Oxygen 21 Height/Weight/BMI: Height 1.57 m Weight 70 kg Body Mass Index 26.2 - Constitutional Present: no acute distress, well nourished, well developed - Routine HEENT Exam Eye: Present: EOMI ENT: Present: mucous membranes moist, dentition normal - Routine Respiratory Exam Present: CTA bilaterally. Absent: wheezes - Routine Cardiovascular Exam Present: RRR, S1, S2. Absent: murmur - Routine Abdominal Exam Present: soft, normoactive bowel sounds, non distended. Absent: tenderness - Routine Extremities Exam Present: normal capillary refill - Routine Back/Spine/Pelvis Exam Back/Spine: Present: full ROM - Routine Skin Exam Present: intact, dry, warm - Routine Neurological Exam Present: alert, oriented X3, CN II-XII intact - Routine Lymphatic Exam Lymphatic: Absent: adenopathy - Routine Psychiatric Exam Present: normal affect, normal thought process Results - Labs CBC & Chem 7: 05/16/17 04:57 05/17/17 05:01 Microbiology Results: Microbiology 05/14/17 22:43 Cath/Port/Line/Picc Blood Culture - Preliminary No Growth After 2 Days 05/14/17 22:46 Cath/Port/Line/Picc Blood Culture - Preliminary No Growth After 2 Days Assessment and Plan (1) Open abdominal wall wound Current visit: Yes Status: Chronic (2) Myopathy Problem details: Critical illness myopathy Current visit: Yes Status: Acute Assessment and Plan: Impression RLE- erythema 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 The patient also had a new intra-abdominal fluid collection at that time that was 4.1 x 4.1 x 4.6 cm.-the patient has received 3 weeks of tigecycline. Decision made by Dr. Puente/Dr. Lewis of ID on 05/11 to hold further tigecycline. WBC decreased again today Leukocytosis Chronic anemia Elevated BUN-trending down daily, no evidence of intravascular depletion, off saline currently Protein calorie malnutrition-requiring TPN with planned fdc need, adjusting per pharmacy, electrolytes stable today Hypertension per history, recent BP marginal in the 90-100 range systolic Diabetes? Versus hyperglycemia from TPN--well controlled currently Chronic abdominal pain secondary to open abdominal wound and pancreatic pseudocyst--suspect not absorbing the po meds well, pain not controlled Decubitus ulcer Pancreatic pseudocyst with unsuccessful attempt for endoscopic cyst stress study on 05/01/2017 History of metastatic neuroendocrine tumor, status post resection History of recurrent acute kidney injury secondary to volume depletion from high output abdominal drainage, volume status stable currently Debility secondary to prolonged illness Plan- 05/17 Overall medically stable. She has remained afebrile and WBC count remains stable. Continue with TPN for nutrition. Carefully monitor electrolytes. Pain management as per Dr Woo Continue to encourage PT/OT for ongoing strengthening Sepsis Assessment - Evaluation Sepsis screening result: No Definite Risk Hospital Course Summary Disclaimer: The visit summary below is not to be considered part of the above Progress Note. Hospital Course: 05/09/17 10:24 Impression: Generalized debility and myopathy secondary to prolonged hospitalizations, acute. * Continue to encourage participation in therapies as patient's goal is to return home with the ability to dress self and ambulate short distances. Therapy reports that she has been doing well and was able to walk 6 steps yesterday. Continue to provide safe and supportive environment. Recent sepsis secondary to E. faecalis CLABSI and recurrent peritonitis due to enteric leak, acute. * Continue tigecycline per Dr. Lewis, to be completed on 05/19. Will discontinue Mills catheter today. Will provide a commode initially to encourage successful toileting until patient strength and endurance improved. Leukocytosis, persistent, present on admission. * WBC on admission 14.4. Continue to monitor trends periodically throughout admission. Patient remains afebrile and WBC trending down as compared to prior recent labs from previous admission. Recheck CBC in AM to monitor blood count trends. Hyperphosphoremia, acute. * Phosphorus elevated at 4.9. Pharmacy notified and will adjust TPN. Will recheck in AM as well as BMP to monitor electrolytes and renal function and continue to monitor trends. Anemia, chronic secondary to chronic disease. * Present on admission with hemoglobin 9.3. Improved from prior admissions. Monitor periodically throughout admission. Moderate protein calorie malnutrition, chronic. * Prealbumin 8.5 on admission. Continue TPN per pharmacy. As patient continues to vomit with large amounts of fluids orally, recommend providing no more than 150cc liquid at a time and encourage slow, small, frequent sips. Encourage boost as able. Hypertension, chronic. * Blood pressures well controlled and borderline low at times. Continue to monitor closely. Diabetes, chronic. * Continue to monitor BGMs, especially in light of TPN. Sliding scale insulin as indicated. Intractable abdominal pain and nausea with draining abdominal wound, chronic. * Pain control per Dr. Woo. Continue Zofran and Phenergan for nausea/ vomiting. Decubitus ulcer, coccyx, chronic. * Wound care team to continue to monitor. Monitor closely for signs of worsening. Continue to encourage patient to do position adjustments frequently , at least Q2 hours. Pancreatic pseudocyst, chronic. * Unsuccessful attempt for endoscopic cyst gastrostomy for drainage on 05/01/17. Metastatic neuroendocrine tumor, s/p resection, chronic. 05/09/2017-I reviewed this chart, the patient history, and the LOBSTER CATCHER's/PA's documented findings as above. We discussed and formulated the assessment and plan as above with the additions below. I've seen and examined the patient independently.-Dr. Olivier The patient states that she is doing okay. She is having some chronic abdominal pain but it is better this evening. She denies any shortness of breath or chest pain. She denies any current nausea. Mills catheter was removed and at the time that I saw her she had not urinated, but afterward she did have a large incontinence of urine. Bladder scan afterward showed about 150 ML's of urine present. She does not have bowel movements since she is nothing by mouth except for fluids. Vital signs were reviewed. She has a borderline mild tachycardia which on review of [facility] records was present there as well. She has not had any fever. Blood pressure is okay. On exam the patient is mildly drowsy but in no acute distress. Oropharynx is moist. Neck is supple. Chest is clear to auscultation. Cardiovascular reveals a regular rhythm and a borderline tachycardic rate. Abdomen reveals an open abdominal wound with a clear dressing. There is some yellowish drainage. Extremities are free of edema. SCDs are in place. Regarding sepsis, continue current antibiotics. Regarding the patient's recent sepsis likely from abdominal source, will consult Dr. Puente to see the patient on Sunday. We'll continue to monitor white count. Continue TPN for malnutrition. Continue to monitor hemoglobin regarding anemia. Regarding acute kidney injury, the patient was seeing Dr. Massimo Pina at [facility]. Her BUN over the past week was ranging from 59-85. I did discontinue ibuprofen that was started here to prevent worsening of acute kidney injury. We' ll need to monitor renal function and fluid status carefully, especially with Mills catheter out. 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 I did discuss the importance of accurate I&O's as much as is possible with her incontinence We'll monitor vital signs frequently and call parameters were placed We'll continue to monitor lab work fairly frequently. 05/12/2017--Dr. 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 The patient also had a new intra-abdominal fluid collection at that time that was 4.1 x 4.1 x 4.6 cm.-the patient has received 3 weeks of tigecycline. Decision made by Dr. Puente/Dr. Lewis of ID on 05/11 to hold further tigecycline. WBC decreased today. Leukocytosis, improved to 14K today, monitoring. Chronic anemia, Hb 7.7, may need PRBC if continued decline. Elevated BUN-trending down Protein calorie malnutrition-requiring TPN with planned intermediate teacher need, adjusting per pharmacy Hypertension Diabetes? Versus hyperglycemia from TPN--well controlled currently Chronic abdominal pain secondary to open abdominal wound and pancreatic pseudocyst--suspect not absorbing the po meds well, pain not controlled Decubitus ulcer Pancreatic pseudocyst with unsuccessful attempt for endoscopic cyst stress study on 05/01/2017 History of metastatic neuroendocrine tumor, status post resection History of recurrent acute kidney injury secondary to volume depletion from high output abdominal drainage Debility secondary to prolonged illness Plan Severe pain today and not really able to participate with therapy Not likely absorbing the po meds well, unit policy precludes IV narcotics, d/w Dr. Woo and will increase fentanyl patch to 100 mcg and monitor for improvement with that change. Continue TPN, will increase K and discuss with pharmacy re: total volume in the setting of high drain outputs. Hold further saline today unless evidence of volume depletion, overall volume status appears stable although difficult to assess in her. Recheck CBC, renal panel in AM and CMP Sunday. Continue to encourage participation with therapy. 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 The patient also had a new intra-abdominal fluid collection at that time that was 4.1 x 4.1 x 4.6 cm.-the patient has received 3 weeks of tigecycline. Decision made by Dr. Puente/Dr. Lewis of ID on 05/11 to hold further tigecycline. WBC decreased again today. Afebrile Leukocytosis, improved to 12K today, monitoring. Chronic anemia, Hb 7.5, may need PRBC if continued decline. Elevated BUN-trending down daily, no evidence of intravascular depletion, off saline currently Protein calorie malnutrition-requiring TPN with planned intermediate teacher need, adjusting per pharmacy, electrolytes stable today Hypertension per history, recent BP marginal in the 90-100 range systolic Diabetes? Versus hyperglycemia from TPN--well controlled currently Chronic abdominal pain secondary to open abdominal wound and pancreatic pseudocyst--suspect not absorbing the po meds well, pain not controlled Decubitus ulcer Pancreatic pseudocyst with unsuccessful attempt for endoscopic cyst stress study on 05/01/2017 History of metastatic neuroendocrine tumor, status post resection History of recurrent acute kidney injury secondary to volume depletion from high output abdominal drainage, volume status stable currently Debility secondary to prolonged illness Plan Continue with current pain control regimen, will defer any further changes to Dr. Woo, comfortable when resting Not likely absorbing the po meds well but has fentanyl patch, increased to 100 mcg on 05/12, monitor Hold any medications that would drop her blood pressure and monitor for signs of infection Continue TPN per pharmacy Hold further saline today unless evidence of volume depletion, labs and exam stable CBC, CMP in AM Continue to encourage participation with therapy. 05/15/17 Plan Continue with current pain control regimen, will defer any further changes to Dr. Woo, comfortable when resting Cory area of erythema to monitor of evidence of extension. Discussed with OT regarding assessing if there is any irritation or rubbing on the right rivas with patient's leg brace. Will evaluate if more padding as needed. Patient verbalizes this area of her leg is so uncomfortable. She is unable to work with therapy or stand. Regarding increased fever overnight, blood cultures have been drawn and are preliminary negative. Will continue to monitor. Leukocytosis remained stable and is trending down. Continue to monitor hemoglobin as this is slightly decreased, likely secondary to dilution given IV fluids overnight. Continue with wound care. Continue to encourage work with PT and OT for ongoing strengthening Plan- 05/16/17 Erythema of RLE is gone and pain has greatly improved. MRI of the Right ankle was obtained and reveled diffuse osteoporosis with mild subQ edema. Since the erythema has improved will hold off on any antibiotic treatment. She has remained afebrile and WBC count remains stable. Appreciated recommendations by Dr Puente to avoid antibiotics if possible. Appreciate Dr Gayle consultation for further recommendations. Continue with TPN for nutrition. Carefully monitor electrolytes. Pain management as per Dr Woo Continue to encourage PT/OT for ongoing strengthening
[2017-05-17] MEDS: POTASSIUM CHLORIDE IV SCH (15:49)
[2017-05-17] MEDS: SODIUM ACETATE IV SCH (15:49)
[2017-05-17] MEDS: SODIUM CHLORIDE IV SCH (15:49)
[2017-05-17] MEDS: [UNRECOGNIZED DRUG - OTHER] IV SCH (15:49)
[2017-05-17] MEDS: FAT EMULSION 20% 100 ML IV SCH (15:49)
[2017-05-17] MEDS: ENOXAPARIN 40 MG/0.4 ML INJECTION SQ SCH (21:47)
[2017-05-17] MEDS: SALINE FLUSH 10ml SYRINGE IV PRN (22:00)
[2017-05-18] MEDS: SALINE FLUSH 10ml SYRINGE IV PRN ×2 (05:20→09:38)
--- NOTE | 2017-05-18 07:52 | Pharmacy Consult-TPN/PPN ---
Pharmacy Consult-TPN/PPN - Laboratory Information Chemistry Turbidity < 20 (0-20) 05/18/17 04:44 Sodium 139 MEQ/L (134-144) 05/18/17 04:44 Potassium 4.4 MEQ/L (3.6-5) 05/18/17 04:44 Chloride 99 MEQ/L (98-107) 05/18/17 04:44 Carbon Dioxide 32 MEQ/L (22-30) H 05/18/17 04:44 Anion Gap 8 MEQ/L (5-15) 05/18/17 04:44 BUN 29.0 MG/DL (7-17) H 05/18/17 04:44 Creatinine 0.9 MG/DL (0.7-1.2) 05/18/17 04:44 GFR Calculation 69 05/18/17 04:44 BUN/Creatinine Ratio 32 RATIO (6-26) H 05/18/17 04:44 Glucose 86 MG/DL (65-110) 05/18/17 04:44 Glucometer 129 mg/dL (65-110) 05/17/17 21:03 Calculated Osmolality 273 MOSM/KG (261-280) 05/18/17 04:44 Uric Acid 3.6 MG/DL (2.5-7.5) 05/15/17 01:01 Calcium 8.3 MG/DL (8.4-10.2) L 05/18/17 04:44 Phosphorus 4.4 MG/DL (2.5-4.5) 05/17/17 05:01 Magnesium 2.2 MG/DL (1.6-2.3) 05/14/17 04:15 Total Bilirubin 1.00 MG/DL (0.20-1.30) 05/18/17 04:44 Icterus Index < 2 (0-7) 05/18/17 04:44 AST 62 U/L (14-36) H 05/18/17 04:44 ALT 85 U/L (9-52) H 05/18/17 04:44 Alkaline Phosphatase 494 U/L (38-126) H 05/18/17 04:44 Total Protein 6.1 G/DL (6.3-8.2) L 05/18/17 04:44 Albumin 2.2 G/DL (3.5-5.0) L 05/18/17 04:44 Globulin 3.9 G/DL (2.4-3.6) H 05/18/17 04:44 Albumin/Globulin Ratio 0.6 RATIO (1.1-2.2) L 05/18/17 04:44 Prealbumin 6.9 MG/DL (17.6-36.0) L 05/17/17 05:01 Specimen Hemolysis < 15 (0-25) 05/18/17 04:44 Intake and Output 05/17/17 05/18/17 05/19/17 06:59 06:59 06:59 Intake Total 2069 / 2069 203.25 / 2038.25 Output Total 3100 / 3100 1575 / 1575 450 / 450 Balance -1030 / -1030 464.25 / 464.25 -450 / -450 Intake: IV 1830 / 1830 1726.25 / 1726.25 Intralipid 20% 100 ml @ 100 / 100 50 mls/hr IV 1600 SEAN Rx# :[id number] Sodium Chloride Conc 4 1730 / 1730 1726.25 / 1726.25 Meq/ml Sodium Acetate 80 Meq KCl 20 Meq K Phos Inj 20 Meq Magnesium Sulfate Inj 16 Meq Calcium Gluconate 9.3 Meq Infuvite Adult 10 ml Multi-Trace Elements 1 ml Folate 2 mg Vitamin B-1 100 mg Potassium Acetate Inj 40 Meq/20 ml In TPN - Custom Formula 2,000 ml @ 75 mls/hr IV .Q24H SEAN Rx#:[id number] Oral 240 / 240 313 / 313 Output: Stool 2600 / 2600 900 / 900 Emesis 300 / 300 Urine Amount (Catheter) 500 / 500 375 / 375 450 / 450 Other: # Unmeasured Emesis 1 Episodes - Consult Information Will continue current formula at present rate. Thank you.
[2017-05-18] MEDS: Oxycodone *IR* 5 MG TABLET PO PRN ×2 (07:53→11:47)
[2017-05-18] MEDS: ONDANSETRON ODT 4 MG TABLET PO PRN (08:35)
--- NOTE | 2017-05-18 08:53 | Progress Note ---
Subjective Date: 05/18/17 Subjective: She was seen before breakfast this morning. She reports severe L-sided abdominal pain. Reports some vomiting yesterday. No other new complaints. No fever in the past 24 hours. She asks when she can eat real food. She reports that her R ankle pain is improving. Exam Vital Signs: Temperature 99.0 F 05/18/17 08:00 Pulse Rate 108 H 05/18/17 08:00 Respiratory Rate 18 05/18/17 08:00 Blood Pressure 89/50 05/18/17 08:00 Pulse Oximetry 93 05/18/17 08:00 Oxygen Delivery Method Room Air Fraction of Inspired Oxygen 21 Height/Weight/BMI: Height 1.57 m Weight 70 kg Body Mass Index 26.2 - Constitutional Present: no acute distress Comments: chronically ill-appearing - Routine HEENT Exam Head: Present: normocephalic Eye: Present: EOMI, PERRL ENT: Present: mucous membranes moist - Routine Neck Exam Present: supple - Routine Respiratory Exam Present: CTA bilaterally. Absent: accessory muscle use - Routine Cardiovascular Exam Present: RRR. Absent: murmur - Routine Abdominal Exam Present: soft. Absent: normoactive bowel sounds Comments: No bowel sounds, large open wound anterior abdomen with wound agency manager on it. - Routine Extremities Exam Absent: edema Comments: Feel with contractures bilaterally - Routine Skin Exam Present: intact. Absent: rash Comments: PICC site ok - Routine Neurological Exam Present: alert, oriented X3, CN II-XII intact. Absent: motor deficit - Routine Psychiatric Exam Present: anxious Results - Labs CBC & Chem 7: 05/18/17 04:44 05/18/17 04:44 Microbiology Results: Microbiology 05/14/17 22:43 Cath/Port/Line/Picc Blood Culture - Preliminary No Growth After 3 Days 05/14/17 22:46 Cath/Port/Line/Picc Blood Culture - Preliminary No Growth After 3 Days Impression: * Recent sepsis, NOS, likely secondary to pancreatic pseudocyst, unable to be drained on 05/01. * Intra-abdominal fluid collection (4.1 x 4.1 x 4.6cm) * Leukocytosis, improving * Nausea/vomiting, improved after stopping Tygacil. * Abdominal pain, chronic, but worse per patient. * H/o urine culture with >100K of Kleb. pneumoniae, ESBL positive, suspect colonization. * H/o rash on Merrem, Vancomycin, PCN, cephalosporins * H/o CLABSI with E. faecalis, s/p CVL removal 03/26, treated with Tygacil (due to allergies) through 04/09. * H/o pancreatic pseudocyst/acute pancreatitis * H/o recurrent peritonitis due to enteric leaks * Colocutaneous fistula on chronic TPN * H/o bile leak s/p stent and eventual removal * Metastatic neuroendocrine tumor s/p resection * Coccyx wound * Debilitation/malnutrition * R ankle pain, disuse osteoporosis on MRI * Fever 05/14, blood cultures NGTD Recommendation: I would continue to monitor her off antibiotics. The cause of her fever is not clear. Her WBC is normal. Atelectasis is a potential cause of fever. She appears to be clinically stable. Will see again at your request. I deferred her questions about her diet to the primary team. Sepsis Assessment - Evaluation Sepsis screening result: No Definite Risk
[2017-05-18] MEDS: MICONAZOLE 2% POWDER 45gm TP SCH ×2 (09:28→23:00)
[2017-05-18] MEDS: ENOXAPARIN 40 MG/0.4 ML INJECTION SQ SCH (09:38)
[2017-05-18] MEDS: DICLOFENAC 1% TOP GEL 100gm TP SCH ×4 (09:39→22:59)
[2017-05-18] MEDS: CETIRIZINE 10 MG TABLET PO SCH (09:39)
--- NOTE | 2017-05-18 09:52 | IRU Progress Note ---
- Subjective/Serverity of Illness Laura was again evaluated today for interview and examination. She has been seen by Dr. Tracee Puente, infectious disease who recommends no further antibiotics at present. Has also been followed closely by the hospitalist team and I have reviewed all of those notes. She again requested that we advance her diet. However she is not able to tolerate even clear liquids very well. She is vomiting and nauseated frequently. I again reviewed with her that if we advanced her diet, her vomiting and nausea would get worse and there is a possibility of aspiration. Questions were addressed in detail in this regard. With regard to therapy, she continues to require a lot of encouragement and frequently requested therapy be postponed. In addition, physical therapy notes that she goes back on her word at times with regard to agreement to participate. Nevertheless, she is making some slow improvement particular with regard to slide board ability. Impediments to her therapy progress include abdominal pain, right ankle pain which is improved, as well as endurance. She is improving slowly in some areas with both physical therapy and occupational therapy but requires a lot of encouragement. Update on medical issues as follows: 1. Pain management in view of her abdominal pain: Continues to complain of abdominal pain which is mainly on the left side of the abdomen. As noted previously weight increased her fentanyl patch to 100 g every 3 days. Patch came off yesterday and it was replaced. Not certain she is getting much benefit from oral pain medication. 2. 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 She is tolerating TPN. This is monitored by pharmacy as well. No evidence of central line infection at present. 3. 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 This is unable to be drained. She has had no further episodes of true sepsis. Has had a low-grade temperature of 99. White count is stable for her at 12,000. Dr. Tracee Puente has seen (from infectious disease) and recommends no antibiotics at present. 4. Recent hyponatremia - improved 5. 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 Exam Vital Signs: Temperature 99.0 F 05/18/17 08:00 Pulse Rate 108 H 05/18/17 08:00 Respiratory Rate 18 05/18/17 08:00 Blood Pressure 89/50 05/18/17 08:00 Pulse Oximetry 93 05/18/17 08:00 Oxygen Delivery Method Room Air Fraction of Inspired Oxygen 21 Height/Weight/BMI: Height 1.57 m Weight 70 kg Body Mass Index 26.2 - Constitutional Present: moderate distress Comments: The patient is awake, alert and oriented and in moderate chronic distress with regard to abdominal pain. Has good eye contact and appears to want to cooperate. Pupils are equal. The neck is supple. Chest: Clear to auscultation bilaterally. Cor: RR with no gallop, click nor murmur Abd: Abdomen not thoroughly examined at this time. Drains remain in place. Extremities: No edema is noted. Careful exam of right ankle was undertaken. Has good range of motion. No further redness and no warmth. She is no longer tender in that area. Results IRU - Labs Labs: I have reviewed her blood work. White count is 12,000. Hemoglobin actually up a bit at 7.9. Reviewed notes from other providers as well in detail. Sepsis Assessment - Evaluation Sepsis screening result: No Definite Risk IRU A/P (1) Myopathy Problem details: Critical illness myopathy Current visit: Yes Status: Acute Has continued weakness and particularly lower extremity muscles. She is variably cooperative with therapy. Requires a lot of motivation and encouragement to participate. She is improving and certain areas particularly with slide board transfers. (2) Open abdominal wall wound Qualifiers: Encounter type: subsequent encounter Qualified Code(s): S31.109D - Unspecified open wound of abdominal wall, unspecified quadrant without penetration into peritoneal cavity, subsequent encounter Current visit: Yes Status: Chronic (3) Diabetes Qualifiers: Diabetes mellitus type: due to underlying condition Diabetes mellitus complication status: without complication Diabetes mellitus jail insulin use: without buttermaker continuous churn use Qualified Code(s): E08.9 - Diabetes mellitus due to underlying condition without complications Current visit: No Status: Chronic Her blood sugars are doing well and are monitored. Therein 130 range. Uncertain if she truly has diabetes or simply hyperglycemia related to the TPN. (4) Protein-calorie malnutrition, moderate Current visit: Yes Status: Chronic She remains on TPN which requires close clinical monitoring. (5) Ankle pain, right Qualifiers: Chronicity: acute Qualified Code(s): M25.571 - Pain in right ankle and joints of right foot Current visit: Yes Status: Resolved Etiology of the ankle pain is unclear. Likely it was an episode of strain which has resolved. Continues to use diclofenac gel with benefit. Does have a lot of ligamentous laxity and rolls the ankle easily. Continued work on strengthening is encouraged. DVT Prophylaxis: SCD's Resuscitation Status: Full Code - Course Hospital Course: Yevgeniy Woo MD: 05/08/17 10:09 Initiating physical therapy and occupational therapy. Patient is cooperative this morning. Complains of chronic abdominal pain. Limiting oral intake in an effort to reduce leakage from the wound and allow patient to participate in therapy. She would like to increase the restriction from 120 up to 150 ML per hour. This will be allowed. This is excluding intake at mealtime. We will leave a cup at her bedside and I asked her to simply sip on this and not take it all at once. She agreed to do this. White count 14,000 but without evidence of active infection. She remains afebrile. Pain management is with patches and oral agents only. 05/09/17 11:50 Continues to require significant encouragement to participate with therapy. Walked 6 ft. Abd pain is remaining as ongoing pain issue. Protein calorie malnutrition addressed with TPN. 05/10/17 11:19 She is making slow progress. White count improved to 13,000. Appreciate hospitalists assistance. Lower extremity dressing is improved. Walking distance improved. Transfers minimally improved. Significant concerns about patient motivation and safety awareness remains. Abdominal pain, nausea and vomiting impact her therapy progress. 05/14/17 10:48 Has multiple medical problems. Making very slow progress. Frequently refuses therapy or at least postpones it. Requires much encouragement to participate. Increased fentanyl patch in an effort to improve her pain management. Continues on TPN. White count improved to 12,000. 05/15/17 10:39 Continues to be very complex. Had poor urine output but responded to fluid bolus. Requires total assistance for many ADLs. Increase fentanyl patch 2-3 days ago. Hopefully that will provide additional pain improvement. White count is improved. Hemoglobin down at 7.1. Does have right ankle pain now which impedes her progress. 05/16/17 10:54 Continues on TPN. Hemoglobin improved at 7.6. White count remains relatively low for her at 11,000. Right ankle pain appears to virtually have resolved. MRI shows disuse osteoporosis only. No evidence of active infection nor inflammation. Seems to have a better attitude today. We will continue current pain management although we did discuss the possibility of oral morphine yesterday. If we do that she will probably be able to tolerate the morphine concentrate and a sublingual or a lingual route. However we will hold off for the time being. Continues to require close medical management of multiple medical conditions. 05/18/17 09:56 Appreciate assistance of infectious disease and hospitalist service. Low-grade fever of 99 but stable white count at 12,000. No evidence of infection and ID recommends no antibiotics at present. Continues to require a lot of encouragement for therapies but is slowly improving. She indicated she does want to get back home. She would like to eat more and again we recommended no advance in her diet due to recurrent nausea and vomiting. She requires close medical management for multiple medical conditions. - Interventions to Obtain Goals PT Treatment Plan: Balance/Proprioception, Functional Activities, Gait Training , Patient/Family Education, Therapeutic Exercise OT Treatment Plan: ADL (Basic Care), Balance Training, Pt./Family Education, UE Functional Training Goals Progress/Modifications: We are continuing to work on ADLs and ambulation and strengthening. It is slow progress due to her lack of endurance and frequent refusal or at least postponement of therapies. However there is some progress noted. She requires close medical management of multiple medical problems including anemia, leukocytosis, low-grade fever, abdominal drainage, nutrition etc.
--- NOTE | 2017-05-18 12:23 | Progress Note ---
Progress Note: Laura is crying in pain. She says it is "all over" but mostly in the left abdomen. She requests something else for pain. I agreed to SL morphine concentrate but told her I would limit this to twice daily only.
[2017-05-18] MEDS: ACETAMINOPHEN 500 MG TABLET PO PRN (12:25)
[2017-05-18] MEDS: MORPHINE SULFATE 10mg/0.5ml ORAL LIQ SL PRN (13:02)
[2017-05-18] MEDS ORDERED: ALTEPLASE (Cathflo*) 2mg INJECTION IV ONE (13:10)
[2017-05-18] MEDS ORDERED: .WATER FOR INJECTION,STERILE 10 ML VIAL IV ONE (13:14)
[2017-05-18] MEDS: SODIUM ACETATE IV SCH (15:54)
[2017-05-18] MEDS: POTASSIUM CHLORIDE IV SCH (15:54)
[2017-05-18] MEDS: [UNRECOGNIZED DRUG - OTHER] IV SCH (15:54)
[2017-05-18] MEDS: SODIUM CHLORIDE IV SCH (15:54)
[2017-05-18] MEDS: FAT EMULSION 20% 100 ML IV SCH (15:55)
[2017-05-19] MEDS: PROMETHAZINE 25 MG INJECTION IVP PRN (02:41)
[2017-05-19] MEDS: Oxycodone *IR* 5 MG TABLET PO PRN ×5 (02:58→23:10)
--- NOTE | 2017-05-19 08:18 | Pharmacy Consult-TPN/PPN ---
Pharmacy Consult-TPN/PPN - Laboratory Information Chemistry Turbidity < 20 (0-20) 05/18/17 04:44 Sodium 139 MEQ/L (134-144) 05/18/17 04:44 Potassium 4.4 MEQ/L (3.6-5) 05/18/17 04:44 Chloride 99 MEQ/L (98-107) 05/18/17 04:44 Carbon Dioxide 32 MEQ/L (22-30) H 05/18/17 04:44 Anion Gap 8 MEQ/L (5-15) 05/18/17 04:44 BUN 29.0 MG/DL (7-17) H 05/18/17 04:44 Creatinine 0.9 MG/DL (0.7-1.2) 05/18/17 04:44 GFR Calculation 69 05/18/17 04:44 BUN/Creatinine Ratio 32 RATIO (6-26) H 05/18/17 04:44 Glucose 86 MG/DL (65-110) 05/18/17 04:44 Glucometer 134 mg/dL (65-110) 05/19/17 06:15 Calculated Osmolality 273 MOSM/KG (261-280) 05/18/17 04:44 Uric Acid 3.6 MG/DL (2.5-7.5) 05/15/17 01:01 Calcium 8.3 MG/DL (8.4-10.2) L 05/18/17 04:44 Phosphorus 4.4 MG/DL (2.5-4.5) 05/17/17 05:01 Magnesium 2.2 MG/DL (1.6-2.3) 05/14/17 04:15 Total Bilirubin 1.00 MG/DL (0.20-1.30) 05/18/17 04:44 Icterus Index < 2 (0-7) 05/18/17 04:44 AST 62 U/L (14-36) H 05/18/17 04:44 ALT 85 U/L (9-52) H 05/18/17 04:44 Alkaline Phosphatase 494 U/L (38-126) H 05/18/17 04:44 Total Protein 6.1 G/DL (6.3-8.2) L 05/18/17 04:44 Albumin 2.2 G/DL (3.5-5.0) L 05/18/17 04:44 Globulin 3.9 G/DL (2.4-3.6) H 05/18/17 04:44 Albumin/Globulin Ratio 0.6 RATIO (1.1-2.2) L 05/18/17 04:44 Prealbumin 6.9 MG/DL (17.6-36.0) L 05/17/17 05:01 Specimen Hemolysis < 15 (0-25) 05/18/17 04:44 Intake and Output 05/18/17 05/19/17 05/20/17 06:59 06:59 06:59 Intake Total 2139.25 / 2139.25 2676.25 / 2676.25 Output Total 1575 / 1575 3075 / 3075 Balance 564.25 / 564.25 -398.75 / -398.75 Intake: IV 1826.25 / 1826.25 1806.25 / 1806.25 Intralipid 20% 100 ml @ 100 / 100 50 mls/hr IV 1600 [facility] Rx# :[id number] Sodium Chloride Conc 4 1726.25 / 1726.25 1806.25 / 1806.25 Meq/ml Sodium Acetate 80 Meq KCl 20 Meq K Phos Inj 20 Meq Magnesium Sulfate Inj 16 Meq Calcium Gluconate 9.3 Meq Infuvite Adult 10 ml Multi-Trace Elements 1 ml Folate 2 mg Vitamin B-1 100 mg Potassium Acetate Inj 40 Meq/20 ml In TPN - Custom Formula 2,000 ml @ 75 mls/hr IV .Q24H [facility] Rx#:[id number] Oral 313 / 313 870 / 870 Output: Urine 300 / 300 Stool 900 / 900 2024 Emesis 300 / 300 150 / 150 Urine Amount (Catheter) 375 / 375 600 / 600 - Consult Information No lytes today, ordered for tomorrow. Continue current formula at 75 mls/hr. Thank you.
--- NOTE | 2017-05-19 08:32 | Progress Note ---
Subjective: Laura was still sleeping in bed. She easily awakened, but did not seem ready to participate much in conversation. She closed her eyes. She denied any new concerns or complaints. She was not in any acute distress. Per nursing staff, she continues to complain of pain and nausea. Movement tends to make her feel worse, so sometimes she will refuse this activity. Objective Vital signs: Temperature 98.9 F 05/19/17 04:00 Pulse Rate 112 H 05/19/17 04:00 Respiratory Rate 15 05/19/17 04:00 Blood Pressure 95/55 05/19/17 04:00 Pulse Oximetry 89 L 05/19/17 04:00 Oxygen Delivery Method Room Air Fraction of Inspired Oxygen 21 Height/Weight/BMI: Height 1.57 m Weight 70 kg Body Mass Index 26.2 - Constitutional Present: no acute distress, well nourished, well developed - Routine HEENT Exam Eye: Absent: conjunctival icterus - Routine Respiratory Exam Present: CTA bilaterally (CTA anteriorly) - Routine Cardiovascular Exam Present: S1, S2 - Routine Abdominal Exam Comments: large open wound; covered with dressing - Routine Exam Comments: Mills - Routine Extremities Exam Present: no edema, pulses intact - Routine Musculoskeletal Exam Musculoskeletal: Present: contractures (b/l feet) - Routine Skin Exam Present: dry, warm - Routine Neurological Exam Present: oriented X3 - Routine Psychiatric Exam Present: cooperative Results - Labs CBC & Chem 7: 05/18/17 04:44 05/18/17 04:44 Microbiology Results: Microbiology 05/14/17 22:43 Cath/Port/Line/Picc Blood Culture - Preliminary No Growth After 4 Days 05/14/17 22:46 Cath/Port/Line/Picc Blood Culture - Preliminary No Growth After 4 Days Assessment and Plan (1) Open abdominal wall wound Current visit: Yes Status: Chronic (2) Myopathy Problem details: Critical illness myopathy Current visit: Yes Status: Acute Resuscitation Status: Full Code Assessment and Plan: Impression RLE - erythema - improved 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 The patient also had a new intra-abdominal fluid collection at that time that was 4.1 x 4.1 x 4.6 cm.-the patient has received 3 weeks of tigecycline. Decision made by Dr. Puente/Dr. Lewis of ID on 05/11 to hold further tigecycline. Leukocytosis Chronic anemia Thrombocytosis 05/19 Elevated BUN-trending down, no evidence of intravascular depletion LFT elevation, possibly from TPN Protein calorie malnutrition-requiring TPN with planned ferry terminal agent need, adjusting per pharmacy, electrolytes stable today Hypertension per history, recent BP marginal in the 90-100 range systolic Diabetes? Versus hyperglycemia from TPN--well controlled currently Chronic abdominal pain secondary to open abdominal wound and pancreatic pseudocyst--suspect not absorbing the po meds well, pain not controlled Decubitus ulcer Pancreatic pseudocyst with unsuccessful attempt for endoscopic cyst stress study on 05/01/2017 History of metastatic neuroendocrine tumor, status post resection History of recurrent acute kidney injury secondary to volume depletion from high output abdominal drainage, volume status stable currently Debility secondary to prolonged illness R ankle pain, disuse osteoporosis on MRI Plan Leukocytosis persistent but stable; abx continue to hold. Remains afebrile. BP have remained low but stable; MAP >65 mm Hg. Hgb up to 7.9; thrombocytosis also noted in March Electrolytes stable on TPN Continue supportive care Repeat labs in am (CBC, CMP, Phos, Mg) Sepsis Assessment - Evaluation Sepsis screening result: No Definite Risk Hospital Course Summary Disclaimer: The visit summary below is not to be considered part of the above Progress Note. Hospital Course: 05/09/17 10:24 Impression: Generalized debility and myopathy secondary to prolonged hospitalizations, acute. * Continue to encourage participation in therapies as patient's goal is to return home with the ability to dress self and ambulate short distances. Therapy reports that she has been doing well and was able to walk 6 steps yesterday. Continue to provide safe and supportive environment. Recent sepsis secondary to E. faecalis CLABSI and recurrent peritonitis due to enteric leak, acute. * Continue tigecycline per Dr. Lewis, to be completed on 05/19. Will discontinue Mills catheter today. Will provide a commode initially to encourage successful toileting until patient strength and endurance improved. Leukocytosis, persistent, present on admission. * WBC on admission 14.4. Continue to monitor trends periodically throughout admission. Patient remains afebrile and WBC trending down as compared to prior recent labs from previous admission. Recheck CBC in AM to monitor blood count trends. Hyperphosphoremia, acute. * Phosphorus elevated at 4.9. Pharmacy notified and will adjust TPN. Will recheck in AM as well as BMP to monitor electrolytes and renal function and continue to monitor trends. Anemia, chronic secondary to chronic disease. * Present on admission with hemoglobin 9.3. Improved from prior admissions. Monitor periodically throughout admission. Moderate protein calorie malnutrition, chronic. * Prealbumin 8.5 on admission. Continue TPN per pharmacy. As patient continues to vomit with large amounts of fluids orally, recommend providing no more than 150cc liquid at a time and encourage slow, small, frequent sips. Encourage boost as able. Hypertension, chronic. * Blood pressures well controlled and borderline low at times. Continue to monitor closely. Diabetes, chronic. * Continue to monitor BGMs, especially in light of TPN. Sliding scale insulin as indicated. Intractable abdominal pain and nausea with draining abdominal wound, chronic. * Pain control per Dr. Woo. Continue Zofran and Phenergan for nausea/ vomiting. Decubitus ulcer, coccyx, chronic. * Wound care team to continue to monitor. Monitor closely for signs of worsening. Continue to encourage patient to do position adjustments frequently , at least Q2 hours. Pancreatic pseudocyst, chronic. * Unsuccessful attempt for endoscopic cyst gastrostomy for drainage on 05/01/17. Metastatic neuroendocrine tumor, s/p resection, chronic. 05/09/2017-I reviewed this chart, the patient history, and the CLINICAL TRIAL MANAGER's/PA's documented findings as above. We discussed and formulated the assessment and plan as above with the additions below. I've seen and examined the patient independently.-Dr. Olivier The patient states that she is doing okay. She is having some chronic abdominal pain but it is better this evening. She denies any shortness of breath or chest pain. She denies any current nausea. Mills catheter was removed and at the time that I saw her she had not urinated, but afterward she did have a large incontinence of urine. Bladder scan afterward showed about 150 ML's of urine present. She does not have bowel movements since she is nothing by mouth except for fluids. Vital signs were reviewed. She has a borderline mild tachycardia which on review of [facility] records was present there as well. She has not had any fever. Blood pressure is okay. On exam the patient is mildly drowsy but in no acute distress. Oropharynx is moist. Neck is supple. Chest is clear to auscultation. Cardiovascular reveals a regular rhythm and a borderline tachycardic rate. Abdomen reveals an open abdominal wound with a clear dressing. There is some yellowish drainage. Extremities are free of edema. SCDs are in place. Regarding sepsis, continue current antibiotics. Regarding the patient's recent sepsis likely from abdominal source, will consult Dr. Puente to see the patient on Sunday. We'll continue to monitor white count. Continue TPN for malnutrition. Continue to monitor hemoglobin regarding anemia. Regarding acute kidney injury, the patient was seeing Dr. Massimo Pina at [facility]. Her BUN over the past week was ranging from 59-85. I did discontinue ibuprofen that was started here to prevent worsening of acute kidney injury. We' ll need to monitor renal function and fluid status carefully, especially with Mills catheter out. 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 I did discuss the importance of accurate I&O's as much as is possible with her incontinence We'll monitor vital signs frequently and call parameters were placed We'll continue to monitor lab work fairly frequently. 05/12/2017--Dr. 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 The patient also had a new intra-abdominal fluid collection at that time that was 4.1 x 4.1 x 4.6 cm.-the patient has received 3 weeks of tigecycline. Decision made by Dr. Puente/Dr. Lewis of ID on 05/11 to hold further tigecycline. WBC decreased today. Leukocytosis, improved to 14K today, monitoring. Chronic anemia, Hb 7.7, may need PRBC if continued decline. Elevated BUN-trending down Protein calorie malnutrition-requiring TPN with planned ferry terminal agent need, adjusting per pharmacy Hypertension Diabetes? Versus hyperglycemia from TPN--well controlled currently Chronic abdominal pain secondary to open abdominal wound and pancreatic pseudocyst--suspect not absorbing the po meds well, pain not controlled Decubitus ulcer Pancreatic pseudocyst with unsuccessful attempt for endoscopic cyst stress study on 05/01/2017 History of metastatic neuroendocrine tumor, status post resection History of recurrent acute kidney injury secondary to volume depletion from high output abdominal drainage Debility secondary to prolonged illness Plan Severe pain today and not really able to participate with therapy Not likely absorbing the po meds well, unit policy precludes IV narcotics, d/w Dr. Woo and will increase fentanyl patch to 100 mcg and monitor for improvement with that change. Continue TPN, will increase K and discuss with pharmacy re: total volume in the setting of high drain outputs. Hold further saline today unless evidence of volume depletion, overall volume status appears stable although difficult to assess in her. Recheck CBC, renal panel in AM and CMP Sunday. Continue to encourage participation with therapy. 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 The patient also had a new intra-abdominal fluid collection at that time that was 4.1 x 4.1 x 4.6 cm.-the patient has received 3 weeks of tigecycline. Decision made by Dr. Puente/Dr. Lewis of ID on 05/11 to hold further tigecycline. WBC decreased again today. Afebrile Leukocytosis, improved to 12K today, monitoring. Chronic anemia, Hb 7.5, may need PRBC if continued decline. Elevated BUN-trending down daily, no evidence of intravascular depletion, off saline currently Protein calorie malnutrition-requiring TPN with planned long-term need, adjusting per pharmacy, electrolytes stable today Hypertension per history, recent BP marginal in the 90-100 range systolic Diabetes? Versus hyperglycemia from TPN--well controlled currently Chronic abdominal pain secondary to open abdominal wound and pancreatic pseudocyst--suspect not absorbing the po meds well, pain not controlled Decubitus ulcer Pancreatic pseudocyst with unsuccessful attempt for endoscopic cyst stress study on 05/01/2017 History of metastatic neuroendocrine tumor, status post resection History of recurrent acute kidney injury secondary to volume depletion from high output abdominal drainage, volume status stable currently Debility secondary to prolonged illness Plan Continue with current pain control regimen, will defer any further changes to Dr. Woo, comfortable when resting Not likely absorbing the po meds well but has fentanyl patch, increased to 100 mcg on 05/12, monitor Hold any medications that would drop her blood pressure and monitor for signs of infection Continue TPN per pharmacy Hold further saline today unless evidence of volume depletion, labs and exam stable CBC, CMP in AM Continue to encourage participation with therapy. 05/15/17 Plan Continue with current pain control regimen, will defer any further changes to Dr. Woo, comfortable when resting Cory area of erythema to monitor of evidence of extension. Discussed with OT regarding assessing if there is any irritation or rubbing on the right rivas with patient's leg brace. Will evaluate if more padding as needed. Patient verbalizes this area of her leg is so uncomfortable. She is unable to work with therapy or stand. Regarding increased fever overnight, blood cultures have been drawn and are preliminary negative. Will continue to monitor. Leukocytosis remained stable and is trending down. Continue to monitor hemoglobin as this is slightly decreased, likely secondary to dilution given IV fluids overnight. Continue with wound care. Continue to encourage work with PT and OT for ongoing strengthening Plan- 05/16/17 Erythema of RLE is gone and pain has greatly improved. MRI of the Right ankle was obtained and reveled diffuse osteoporosis with mild subQ edema. Since the erythema has improved will hold off on any antibiotic treatment. She has remained afebrile and WBC count remains stable. Appreciated recommendations by Dr Puente to avoid antibiotics if possible. Appreciate Dr Gayle consultation for further recommendations. Continue with TPN for nutrition. Carefully monitor electrolytes. Pain management as per Dr Woo Continue to encourage PT/OT for ongoing strengthening 05/19/17 Leukocytosis persistent but stable; abx continue to hold. Remains afebrile. BP have remained low but stable; MAP >65 mm Hg. Hgb up to 7.9; thrombocytosis also noted in March
[2017-05-19] MEDS: MICONAZOLE 2% POWDER 45gm TP SCH ×2 (09:50→22:58)
[2017-05-19] MEDS: CETIRIZINE 10 MG TABLET PO SCH (09:54)
[2017-05-19] MEDS ORDERED: BELLADONNA-OPIUM 16.2 MG/60 MG SUPPOSITORY PR PRN (11:13)
[2017-05-19] MEDS: DICLOFENAC 1% TOP GEL 100gm TP SCH ×4 (13:10→23:10)
[2017-05-19] MEDS: ENOXAPARIN 40 MG/0.4 ML INJECTION SQ SCH (13:19)
[2017-05-19] MEDS: DiphenhydrAMINE 50 MG/ML INJECTION IVP PRN ×2 (14:40→23:12)
[2017-05-19] MEDS: [UNRECOGNIZED DRUG - OTHER] IV SCH (16:58)
[2017-05-19] MEDS: SODIUM ACETATE IV SCH (16:58)
[2017-05-19] MEDS: POTASSIUM CHLORIDE IV SCH (16:58)
[2017-05-19] MEDS: SODIUM CHLORIDE IV SCH (16:58)
[2017-05-19] MEDS: FAT EMULSION 20% 100 ML IV SCH (17:14)
[2017-05-19] MEDS: SALINE FLUSH 10ml SYRINGE IV PRN ×2 (23:00→23:14)
[2017-05-20] MEDS: ONDANSETRON 4 MG/2 ML INJECTION IV PRN (01:31)
[2017-05-20] MEDS: SALINE FLUSH 10ml SYRINGE IV PRN ×5 (01:31→23:07)
[2017-05-20] MEDS: Oxycodone *IR* 5 MG TABLET PO PRN ×4 (03:46→21:29)
[2017-05-20] MEDS: CETIRIZINE 10 MG TABLET PO SCH (09:46)
[2017-05-20] MEDS: ENOXAPARIN 40 MG/0.4 ML INJECTION SQ SCH (10:17)
[2017-05-20] MEDS: MICONAZOLE 2% POWDER 45gm TP SCH ×2 (10:18→23:36)
[2017-05-20] MEDS: DICLOFENAC 1% TOP GEL 100gm TP SCH ×4 (10:32→22:28)
--- NOTE | 2017-05-20 12:56 | Pharmacy Consult-TPN/PPN ---
Pharmacy Consult-TPN/PPN - Laboratory Information Chemistry Turbidity < 20 (0-20) 05/20/17 04:15 Sodium 136 MEQ/L (134-144) 05/20/17 04:15 Potassium 3.9 MEQ/L (3.6-5) 05/20/17 04:15 Chloride 96 MEQ/L (98-107) L 05/20/17 04:15 Carbon Dioxide 34 MEQ/L (22-30) H 05/20/17 04:15 Anion Gap 6 MEQ/L (5-15) 05/20/17 04:15 BUN 38.0 MG/DL (7-17) H 05/20/17 04:15 Creatinine 1.0 MG/DL (0.7-1.2) 05/20/17 04:15 GFR Calculation 61 05/20/17 04:15 BUN/Creatinine Ratio 38 RATIO (6-26) H 05/20/17 04:15 Glucose 91 MG/DL (65-110) 05/20/17 04:15 Glucometer 132 mg/dL (65-110) 05/19/17 20:43 Calculated Osmolality 271 MOSM/KG (261-280) 05/20/17 04:15 Uric Acid 3.6 MG/DL (2.5-7.5) 05/15/17 01:01 Calcium 8.3 MG/DL (8.4-10.2) L 05/20/17 04:15 Phosphorus 4.1 MG/DL (2.5-4.5) 05/20/17 04:15 Magnesium 2.2 MG/DL (1.6-2.3) 05/20/17 04:15 Total Bilirubin 1.00 MG/DL (0.20-1.30) 05/20/17 04:15 Icterus Index < 2 (0-7) 05/20/17 04:15 AST 45 U/L (14-36) H 05/20/17 04:15 ALT 62 U/L (9-52) H 05/20/17 04:15 Alkaline Phosphatase 425 U/L (38-126) H 05/20/17 04:15 Total Protein 6.0 G/DL (6.3-8.2) L 05/20/17 04:15 Albumin 2.2 G/DL (3.5-5.0) L 05/20/17 04:15 Globulin 3.8 G/DL (2.4-3.6) H 05/20/17 04:15 Albumin/Globulin Ratio 0.6 RATIO (1.1-2.2) L 05/20/17 04:15 Prealbumin 6.9 MG/DL (17.6-36.0) L 05/17/17 05:01 Specimen Hemolysis < 15 (0-25) 05/20/17 04:15 Intake and Output 05/19/17 05/20/17 05/21/17 06:59 06:59 06:59 Intake Total 2776.25 / 2776.25 1880 / 1880 Output Total 3075 / 3075 1900 / 1900 200 / 200 Balance -298.75 / -298.75 -20 / -20 -200 / -200 Intake: IV 1906.25 / 1906.25 1880 / 1880 Intralipid 20% 100 ml @ 100 / 100 50 mls/hr IV 1600 [facility] Rx# :[id number] Sodium Chloride Conc 4 1806.25 / 1806.25 1880 / 1880 Meq/ml Sodium Acetate 80 Meq KCl 20 Meq K Phos Inj 20 Meq Magnesium Sulfate Inj 16 Meq Calcium Gluconate 9.3 Meq Infuvite Adult 10 ml Multi-Trace Elements 1 ml Folate 2 mg Vitamin B-1 100 mg Potassium Acetate Inj 40 Meq/20 ml In TPN - Custom Formula 2,000 ml @ 75 mls/hr IV .Q24H [facility] Rx#:[id number] Oral 870 / 870 Output: Urine 300 / 300 Stool 2024 / 2024 1300 / 1300 Emesis 150 / 150 200 / 200 Urine Amount (Catheter) 600 / 600 600 / 600 - Consult Information Albumin and total protein are increased. No changes to TPN formula. Will continue to monitor. Thank you.
--- NOTE | 2017-05-20 14:08 | Progress Note ---
Subjective: Laura is seen today in follow up. She is lying in bed,appears relaxed. Is a bit anxious. Reports that she is still in "excruciating pain." States her pain is mostly in lower abdomen, left side. She is only taking clear liquids PO, which she is able to self report. States that she does not have bowel movements due to open abdominal wound with large wound bag in place. Chart is reviewed for collateral information. Objective Vital signs: Temperature 97.7 F 05/20/17 12:00 Pulse Rate 102 H 05/20/17 12:00 Respiratory Rate 20 05/20/17 12:00 Blood Pressure 99/64 05/20/17 12:00 Pulse Oximetry 94 05/20/17 12:00 Oxygen Delivery Method Room Air Fraction of Inspired Oxygen 21 Height/Weight/BMI: Height 1.57 m Weight 70 kg Body Mass Index 26.2 - Constitutional Present: mild distress, well nourished, well developed, obese - Routine HEENT Exam Head: Present: normocephalic, atraumatic Eye: Present: EOMI, PERRL ENT: Present: mucous membranes moist - Routine Respiratory Exam Present: CTA bilaterally. Absent: dyspnea, rhonchi, wheezes, crackles - Routine Cardiovascular Exam Present: RRR, S1, S2, no murmur - Routine Abdominal Exam Present: soft, tenderness, guarding, surgical scars, wound, drain. Absent: normoactive bowel sounds, distended Comments: Large open area right lower abdomen, visible intestines. - Routine Exam Comments: Christine cath in place, dark raul urine. - Routine Extremities Exam Present: no edema, non tender, full ROM - Routine Musculoskeletal Exam Musculoskeletal: Present: no clubbing or cyanosis, no tenderness, no erythema - Routine Skin Exam Present: intact, dry, warm - Routine Neurological Exam Present: alert, oriented X3, moving all extremities - Routine Psychiatric Exam Present: cooperative, anxious Results - Labs CBC & Chem 7: 05/20/17 04:15 05/20/17 04:15 Microbiology Results: Microbiology 05/14/17 22:43 Cath/Port/Line/Picc Blood Culture - Final No Growth After 5 Days 05/14/17 22:46 Cath/Port/Line/Picc Blood Culture - Final No Growth After 5 Days - Impressions Reviewed imaging on chart. 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 Luu/Dr. Omar Brown) Recent sepsis likely from pancreatic pseudocyst, not otherwise specified organism, unable to drain pseudocyst on 05/01/2017 (Dr. MICHAEL Flores). The patient also had a new intra-abdominal fluid collection at that time that was 4.1 x 4.1 x 4.6 cm.-the patient has received 3 weeks of tigecycline. Decision made by Dr. Puente/Dr. Lewis of ID on 05/11 to hold further tigecycline. Leukocytosis Chronic anemia Thrombocytosis 05/19 Elevated BUN-trending down, no evidence of intravascular depletion LFT elevation, possibly from TPN Protein calorie malnutrition-requiring TPN with planned prison need, adjusting per pharmacy, electrolytes stable today Hypertension per history, recent BP marginal in the 90-100 range systolic Diabetes? Versus hyperglycemia from TPN--well controlled currently Chronic abdominal pain secondary to open abdominal wound and pancreatic pseudocyst--suspect not absorbing the po meds well, pain not controlled Decubitus ulcer Pancreatic pseudocyst with unsuccessful attempt for endoscopic cyst stress study on 05/01/2017 History of metastatic neuroendocrine tumor, status post resection History of recurrent acute kidney injury secondary to volume depletion from high output abdominal drainage, volume status stable currently Debility secondary to prolonged illness R ankle pain, disuse osteoporosis on MRI Plan 05/20/17 Pain remains a major concern of pt. She continues on Fentanyl 100mcg/PRN oxycodone/PRN Morphine BID. Will add TID Gabapentin elixer. Consider adding Cymbalta for pain control and anxiety once we see how she is tolerating gabapentin. Continue TPN, pharmacy following. Continue monitoring labs/accu checks. Consider bladder training to DC christine. Persistent leukocytosis with reactive thrombocytosis- consider repeating CT scan if she becomes febrile. Continue strengthening exercises. Sepsis Assessment - Evaluation Sepsis screening result: No Definite Risk Hospital Course Summary Disclaimer: The visit summary below is not to be considered part of the above Progress Note. Hospital Course: 05/09/17 10:24 Impression: Generalized debility and myopathy secondary to prolonged hospitalizations, acute. * Continue to encourage participation in therapies as patient's goal is to return home with the ability to dress self and ambulate short distances. Therapy reports that she has been doing well and was able to walk 6 steps yesterday. Continue to provide safe and supportive environment. Recent sepsis secondary to E. faecalis CLABSI and recurrent peritonitis due to enteric leak, acute. * Continue tigecycline per Dr. Lewis, to be completed on 05/19. Will discontinue Christine catheter today. Will provide a commode initially to encourage successful toileting until patient strength and endurance improved. Leukocytosis, persistent, present on admission. * WBC on admission 14.4. Continue to monitor trends periodically throughout admission. Patient remains afebrile and WBC trending down as compared to prior recent labs from previous admission. Recheck CBC in AM to monitor blood count trends. Hyperphosphoremia, acute. * Phosphorus elevated at 4.9. Pharmacy notified and will adjust TPN. Will recheck in AM as well as BMP to monitor electrolytes and renal function and continue to monitor trends. Anemia, chronic secondary to chronic disease. * Present on admission with hemoglobin 9.3. Improved from prior admissions. Monitor periodically throughout admission. Moderate protein calorie malnutrition, chronic. * Prealbumin 8.5 on admission. Continue TPN per pharmacy. As patient continues to vomit with large amounts of fluids orally, recommend providing no more than 150cc liquid at a time and encourage slow, small, frequent sips. Encourage boost as able. Hypertension, chronic. * Blood pressures well controlled and borderline low at times. Continue to monitor closely. Diabetes, chronic. * Continue to monitor BGMs, especially in light of TPN. Sliding scale insulin as indicated. Intractable abdominal pain and nausea with draining abdominal wound, chronic. * Pain control per Dr. Woo. Continue Zofran and Phenergan for nausea/ vomiting. Decubitus ulcer, coccyx, chronic. * Wound care team to continue to monitor. Monitor closely for signs of worsening. Continue to encourage patient to do position adjustments frequently , at least Q2 hours. Pancreatic pseudocyst, chronic. * Unsuccessful attempt for endoscopic cyst gastrostomy for drainage on 05/01/17. Metastatic neuroendocrine tumor, s/p resection, chronic. 05/09/2017-I reviewed this chart, the patient history, and the ELECTRICAL DISCHARGE MACHINE OPERATOR's/PA's documented findings as above. We discussed and formulated the assessment and plan as above with the additions below. I've seen and examined the patient independently.-Dr. Olivier The patient states that she is doing okay. She is having some chronic abdominal pain but it is better this evening. She denies any shortness of breath or chest pain. She denies any current nausea. Christine catheter was removed and at the time that I saw her she had not urinated, but afterward she did have a large incontinence of urine. Bladder scan afterward showed about 150 ML's of urine present. She does not have bowel movements since she is nothing by mouth except for fluids. Vital signs were reviewed. She has a borderline mild tachycardia which on review of view [facility] records was present there as well. She has not had any fever. Blood pressure is okay. On exam the patient is mildly drowsy but in no acute distress. Oropharynx is moist. Neck is supple. Chest is clear to auscultation. Cardiovascular reveals a regular rhythm and a borderline tachycardic rate. Abdomen reveals an open abdominal wound with a clear dressing. There is some yellowish drainage. Extremities are free of edema. SCDs are in place. Regarding sepsis, continue current antibiotics. Regarding the patient's recent sepsis likely from abdominal source, will consult Dr. Puente to see the patient on Sunday. We'll continue to monitor white count. Continue TPN for malnutrition. Continue to monitor hemoglobin regarding anemia. Regarding acute kidney injury, the patient was seeing Dr. Massimo Pina at [facility]. Her BUN over the past week was ranging from 59-85. I did discontinue ibuprofen that was started here to prevent worsening of acute kidney injury. We' ll need to monitor renal function and fluid status carefully, especially with Christine catheter out. 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 I did discuss the importance of accurate I&O's as much as is possible with her incontinence We'll monitor vital signs frequently and call parameters were placed We'll continue to monitor lab work fairly frequently. 05/12/2017--Dr. 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 The patient also had a new intra-abdominal fluid collection at that time that was 4.1 x 4.1 x 4.6 cm.-the patient has received 3 weeks of tigecycline. Decision made by Dr. Puente/Dr. Lewis of ID on 05/11 to hold further tigecycline. WBC decreased today. Leukocytosis, improved to 14K today, monitoring. Chronic anemia, Hb 7.7, may need PRBC if continued decline. Elevated BUN-trending down Protein calorie malnutrition-requiring TPN with planned prison need, adjusting per pharmacy Hypertension Diabetes? Versus hyperglycemia from TPN--well controlled currently Chronic abdominal pain secondary to open abdominal wound and pancreatic pseudocyst--suspect not absorbing the po meds well, pain not controlled Decubitus ulcer Pancreatic pseudocyst with unsuccessful attempt for endoscopic cyst stress study on 05/01/2017 History of metastatic neuroendocrine tumor, status post resection History of recurrent acute kidney injury secondary to volume depletion from high output abdominal drainage Debility secondary to prolonged illness Plan Severe pain today and not really able to participate with therapy Not likely absorbing the po meds well, unit policy precludes IV narcotics, d/w Dr. Woo and will increase fentanyl patch to 100 mcg and monitor for improvement with that change. Continue TPN, will increase K and discuss with pharmacy re: total volume in the setting of high drain outputs. Hold further saline today unless evidence of volume depletion, overall volume status appears stable although difficult to assess in her. Recheck CBC, renal panel in AM and CMP Sunday. Continue to encourage participation with therapy. 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 The patient also had a new intra-abdominal fluid collection at that time that was 4.1 x 4.1 x 4.6 cm.-the patient has received 3 weeks of tigecycline. Decision made by Dr. Puente/Dr. Lewis of ID on 05/11 to hold further tigecycline. WBC decreased again today. Afebrile Leukocytosis, improved to 12K today, monitoring. Chronic anemia, Hb 7.5, may need PRBC if continued decline. Elevated BUN-trending down daily, no evidence of intravascular depletion, off saline currently Protein calorie malnutrition-requiring TPN with planned rodent exterminator need, adjusting per pharmacy, electrolytes stable today Hypertension per history, recent BP marginal in the 90-100 range systolic Diabetes? Versus hyperglycemia from TPN--well controlled currently Chronic abdominal pain secondary to open abdominal wound and pancreatic pseudocyst--suspect not absorbing the po meds well, pain not controlled Decubitus ulcer Pancreatic pseudocyst with unsuccessful attempt for endoscopic cyst stress study on 05/01/2017 History of metastatic neuroendocrine tumor, status post resection History of recurrent acute kidney injury secondary to volume depletion from high output abdominal drainage, volume status stable currently Debility secondary to prolonged illness Plan Continue with current pain control regimen, will defer any further changes to Dr. Woo, comfortable when resting Not likely absorbing the po meds well but has fentanyl patch, increased to 100 mcg on 05/12, monitor Hold any medications that would drop her blood pressure and monitor for signs of infection Continue TPN per pharmacy Hold further saline today unless evidence of volume depletion, labs and exam stable CBC, CMP in AM Continue to encourage participation with therapy. 05/15/17 Plan Continue with current pain control regimen, will defer any further changes to Dr. Woo, comfortable when resting Cory area of erythema to monitor of evidence of extension. Discussed with OT regarding assessing if there is any irritation or rubbing on the right rivas with patient's leg brace. Will evaluate if more padding as needed. Patient verbalizes this area of her leg is so uncomfortable. She is unable to work with therapy or stand. Regarding increased fever overnight, blood cultures have been drawn and are preliminary negative. Will continue to monitor. Leukocytosis remained stable and is trending down. Continue to monitor hemoglobin as this is slightly decreased, likely secondary to dilution given IV fluids overnight. Continue with wound care. Continue to encourage work with PT and OT for ongoing strengthening Plan- 05/16/17 Erythema of RLE is gone and pain has greatly improved. MRI of the Right ankle was obtained and reveled diffuse osteoporosis with mild subQ edema. Since the erythema has improved will hold off on any antibiotic treatment. She has remained afebrile and WBC count remains stable. Appreciated recommendations by Dr Puente to avoid antibiotics if possible. Appreciate Dr Gayle consultation for further recommendations. Continue with TPN for nutrition. Carefully monitor electrolytes. Pain management as per Dr Woo Continue to encourage PT/OT for ongoing strengthening 05/19/17 Leukocytosis persistent but stable; abx continue to hold. Remains afebrile. BP have remained low but stable; MAP >65 mm Hg. Hgb up to 7.9; thrombocytosis also noted in 05/20/17 14:33 05/20/17 Pain remains a major concern of pt. She continues on Fentanyl 100mcg/PRN oxycodone/PRN Morphine BID. Will add TID Gabapentin elixer. Consider adding Cymbalta for pain control and anxiety once we see how she is tolerating gabapentin. Continue TPN, pharmacy following. Continue monitoring labs/accu checks. Consider bladder training to DC christine. Persistent leukocytosis with reactive thrombocytosis- consider repeating CT scan if she becomes febrile. Continue strengthening exercises.
[2017-05-20] MEDS: GABAPENTIN 250 MG/5 ML PO SCH ×3 (15:29→22:28)
[2017-05-20] MEDS: SODIUM ACETATE IV SCH (18:28)
[2017-05-20] MEDS: POTASSIUM CHLORIDE IV SCH (18:28)
[2017-05-20] MEDS: [UNRECOGNIZED DRUG - OTHER] IV SCH (18:28)
[2017-05-20] MEDS: SODIUM CHLORIDE IV SCH (18:28)
[2017-05-20] MEDS: FAT EMULSION 20% 100 ML IV SCH (18:29)
[2017-05-20] MEDS: DiphenhydrAMINE 50 MG/ML INJECTION IVP PRN (23:01)
[2017-05-21] MEDS: Oxycodone *IR* 5 MG TABLET PO PRN ×4 (01:09→23:17)
[2017-05-21] MEDS: ONDANSETRON 4 MG/2 ML INJECTION IV PRN ×3 (01:58→17:45)
[2017-05-21] MEDS: SALINE FLUSH 10ml SYRINGE IV PRN (01:59)
[2017-05-21] MEDS: DiphenhydrAMINE 50 MG/ML INJECTION IVP PRN (05:18)
[2017-05-21] MEDS: CETIRIZINE 10 MG TABLET PO SCH (08:17)
--- NOTE | 2017-05-21 08:34 | Pharmacy Consult-TPN/PPN ---
Pharmacy Consult-TPN/PPN - Laboratory Information Chemistry Turbidity < 20 (0-20) 05/21/17 04:25 Sodium 135 MEQ/L (134-144) 05/21/17 04:25 Potassium 3.9 MEQ/L (3.6-5) 05/21/17 04:25 Chloride 95 MEQ/L (98-107) L 05/21/17 04:25 Carbon Dioxide 33 MEQ/L (22-30) H 05/21/17 04:25 Anion Gap 7 MEQ/L (5-15) 05/21/17 04:25 BUN 38.0 MG/DL (7-17) H 05/21/17 04:25 Creatinine 1.1 MG/DL (0.7-1.2) 05/21/17 04:25 GFR Calculation 54 05/21/17 04:25 BUN/Creatinine Ratio 35 RATIO (6-26) H 05/21/17 04:25 Glucose 94 MG/DL (65-110) 05/21/17 04:25 Glucometer 150 mg/dL (65-110) 05/20/17 16:45 Calculated Osmolality 269 MOSM/KG (261-280) 05/21/17 04:25 Uric Acid 3.6 MG/DL (2.5-7.5) 05/15/17 01:01 Calcium 8.4 MG/DL (8.4-10.2) 05/21/17 04:25 Phosphorus 4.1 MG/DL (2.5-4.5) 05/20/17 04:15 Magnesium 2.1 MG/DL (1.6-2.3) 05/21/17 04:25 Total Bilirubin 1.00 MG/DL (0.20-1.30) 05/21/17 04:25 Icterus Index < 2 (0-7) 05/21/17 04:25 AST 65 U/L (14-36) H 05/21/17 04:25 ALT 67 U/L (9-52) H 05/21/17 04:25 Alkaline Phosphatase 510 U/L (38-126) H 05/21/17 04:25 Total Protein 6.1 G/DL (6.3-8.2) L 05/21/17 04:25 Albumin 2.3 G/DL (3.5-5.0) L 05/21/17 04:25 Globulin 3.8 G/DL (2.4-3.6) H 05/21/17 04:25 Albumin/Globulin Ratio 0.6 RATIO (1.1-2.2) L 05/21/17 04:25 Prealbumin 6.9 MG/DL (17.6-36.0) L 05/17/17 05:01 Specimen Hemolysis < 15 (0-25) 05/21/17 04:25 Intake and Output 05/20/17 05/21/17 05/22/17 06:59 06:59 06:59 Intake Total 1979 2332.5 / 2332.5 Output Total 1900 / 1900 1950 / 1950 Balance 80 / 80 382.5 / 382.5 Intake: IV 1979 1912.5 / 191.5 Intralipid 20% 100 ml @ 100 / 100 50 mls/hr IV 1600 [facility] Rx# :[id number] Sodium Chloride Conc 4 1880 / 1880 1912.5 / 1912.5 Meq/ml Sodium Acetate 80 Meq KCl 20 Meq K Phos Inj 20 Meq Magnesium Sulfate Inj 16 Meq Calcium Gluconate 9.3 Meq Infuvite Adult 10 ml Multi-Trace Elements 1 ml Folate 2 mg Vitamin B-1 100 mg Potassium Acetate Inj 40 Meq/20 ml In TPN - Custom Formula 2,000 ml @ 75 mls/hr IV .Q24H [facility] Rx#:[id number] Oral 420 / 420 Output: Stool 1300 / 1300 1000 / 1000 Emesis 200 / 200 Urine Amount (Catheter) 600 / 600 750 / 750 - Consult Information Will continue current formula at 75 mls/hr. Will continue to monitor. Thank you.
[2017-05-21] MEDS: MORPHINE SULFATE 10mg/0.5ml ORAL LIQ SL PRN (09:06)
[2017-05-21] MEDS: ENOXAPARIN 40 MG/0.4 ML INJECTION SQ SCH (09:07)
[2017-05-21] MEDS: GABAPENTIN 100 MG CAPSULE PO SCH ×4 (09:20→23:12)
--- NOTE | 2017-05-21 09:55 | Wound Care Progress Note ---
Wound Center Progress Note: Arrived on IRU to change the fistula containment pouch. After old pouch is removed, skin is cleaned and 3M advanced skin protectant applied and allowed dry time. Then [place] adapt rings placed around the base of the fistula. At this time using paste and rings to level the area, then the pouch is cut to fit fistula and applied, then red cristian cath placed in bag to low 20mm suction interment, connections all taped closed. The edge of pouch is secured with 3 M tape. Pt tolerated well. Will monitor daily for leaks.
[2017-05-21] MEDS: MICONAZOLE 2% POWDER 45gm TP SCH ×2 (10:11→23:14)
[2017-05-21] MEDS: DICLOFENAC 1% TOP GEL 100gm TP SCH ×4 (10:13→23:13)
--- NOTE | 2017-05-21 10:22 | Progress Note ---
Subjective: Wound RN was at bedside changing her dressing on her open abdominal wound. There was some leaking over the weekend, and her skin is a little irritated, but not significantly worse than it has been. Laura continues to have severe pain - gabapentin liquid was added yesterday to try to achieve better pain control. However, she states his taste terrible, and requests to have it changed to pill form, knowing that absorption will likely be limited. She states that she feels terrible today. She has been hot and cold. She feels slightly short of breath. She denies any new sources of pain, but states that occasionally she has chest discomfort and abdominal discomfort (not new). She complains of bumps in the back of her throat. Objective Vital signs: Temperature 99.6 F 05/21/17 08:00 Pulse Rate 104 H 05/21/17 08:00 Respiratory Rate 16 05/21/17 08:00 Blood Pressure 100/62 05/21/17 08:00 Pulse Oximetry 93 05/21/17 08:00 Oxygen Delivery Method Room Air Fraction of Inspired Oxygen 21 Height/Weight/BMI: Height 1.57 m Weight 70 kg Body Mass Index 26.2 - Constitutional Present: no acute distress, well nourished, well developed - Routine HEENT Exam ENT: Present: mucous membranes moist - Routine Respiratory Exam Present: CTA bilaterally (anteriorly) - Routine Cardiovascular Exam Present: S1, S2 - Routine Abdominal Exam Comments: Wound dressing is being changed. +Exposed intestine; erythemic irritated skin surrounding wound/graft. No obvious cellulitis. No purulent drainage. - Routine Extremities Exam Present: no edema, pulses intact, normal capillary refill - Routine Musculoskeletal Exam Musculoskeletal: Present: contractures (b/l feet) - Routine Skin Exam Present: dry, warm - Routine Neurological Exam Present: alert, oriented X3, CN II-XII intact - Routine Lymphatic Exam Lymphatic: Present: adenopathy (mild anterior cervical lymphadenitis) - Routine Psychiatric Exam Present: normal affect, normal thought process, cooperative Results - Labs CBC & Chem 7: 05/21/17 04:25 05/21/17 04:25 Microbiology Results: Microbiology 05/21/17 05:09 Peripheral/Iv Start Blood Culture - Preliminary Culture Initiated - Results Pending 05/21/17 05:10 Peripheral/Iv Start Blood Culture - Preliminary Culture Initiated - Results Pending 05/21/17 05:01 Urine, Voided (Cc/notcc) Urine Culture - Preliminary Culture Initiated - Results Pending 05/14/17 22:43 Cath/Port/Line/Picc Blood Culture - Final No Growth After 5 Days 05/14/17 22:46 Cath/Port/Line/Picc Blood Culture - Final No Growth After 5 Days Assessment and Plan (1) Open abdominal wall wound Current visit: Yes Status: Chronic (2) Myopathy Problem details: Critical illness myopathy Current visit: Yes Status: Acute Resuscitation Status: Full Code Assessment and Plan: Impression RLE - erythema - improved 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 Luu/Dr. Omar Brown) Recent sepsis likely from pancreatic pseudocyst, not otherwise specified organism, unable to drain pseudocyst on 05/01/2017 (Dr. MICHAEL Flores). The patient also had a new intra-abdominal fluid collection at that time that was 4.1 x 4.1 x 4.6 cm.-the patient has received 3 weeks of tigecycline. Decision made by Dr. Puente/Dr. Lewis of ID on 05/11 to hold further tigecycline. 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 WBC up to 15. BC sent. UA positive with sample from catheter - culture was sent. Will check CXR due to SOA. Platelets up to 510. Dr. Puente is planning on re-evaluating her today. Will check lactate and procalcitonin. ?Repeat CT? Continue pain control; change gabapentin to pill but we may need to revert back to elixer if ineffective. BUN and creatinine are trending up - will give 1L NS. Continue bladder retraining. LFTs increasing - could be related to TPN. D/W Dr. Grajeda, Laura Holley RN from wound care Sepsis Assessment - Evaluation Sepsis screening result: No Definite Risk Hospital Course Summary Disclaimer: The visit summary below is not to be considered part of the above Progress Note. Hospital Course: 05/09/17 10:24 Impression: Generalized debility and myopathy secondary to prolonged hospitalizations, acute. * Continue to encourage participation in therapies as patient's goal is to return home with the ability to dress self and ambulate short distances. Therapy reports that she has been doing well and was able to walk 6 steps yesterday. Continue to provide safe and supportive environment. Recent sepsis secondary to E. faecalis CLABSI and recurrent peritonitis due to enteric leak, acute. * Continue tigecycline per Dr. Lewis, to be completed on 05/19. Will discontinue Christine catheter today. Will provide a commode initially to encourage successful toileting until patient strength and endurance improved. Leukocytosis, persistent, present on admission. * WBC on admission 14.4. Continue to monitor trends periodically throughout admission. Patient remains afebrile and WBC trending down as compared to prior recent labs from previous admission. Recheck CBC in AM to monitor blood count trends. Hyperphosphoremia, acute. * Phosphorus elevated at 4.9. Pharmacy notified and will adjust TPN. Will recheck in AM as well as BMP to monitor electrolytes and renal function and continue to monitor trends. Anemia, chronic secondary to chronic disease. * Present on admission with hemoglobin 9.3. Improved from prior admissions. Monitor periodically throughout admission. Moderate protein calorie malnutrition, chronic. * Prealbumin 8.5 on admission. Continue TPN per pharmacy. As patient continues to vomit with large amounts of fluids orally, recommend providing no more than 150cc liquid at a time and encourage slow, small, frequent sips. Encourage boost as able. Hypertension, chronic. * Blood pressures well controlled and borderline low at times. Continue to monitor closely. Diabetes, chronic. * Continue to monitor BGMs, especially in light of TPN. Sliding scale insulin as indicated. Intractable abdominal pain and nausea with draining abdominal wound, chronic. * Pain control per Dr. Woo. Continue Zofran and Phenergan for nausea/ vomiting. Decubitus ulcer, coccyx, chronic. * Wound care team to continue to monitor. Monitor closely for signs of worsening. Continue to encourage patient to do position adjustments frequently , at least Q2 hours. Pancreatic pseudocyst, chronic. * Unsuccessful attempt for endoscopic cyst gastrostomy for drainage on 05/01/17. Metastatic neuroendocrine tumor, s/p resection, chronic. 05/09/2017-I reviewed this chart, the patient history, and the ACCOUNT INFORMATION CLERK's/PA's documented findings as above. We discussed and formulated the assessment and plan as above with the additions below. I've seen and examined the patient independently.-Dr. Olivier The patient states that she is doing okay. She is having some chronic abdominal pain but it is better this evening. She denies any shortness of breath or chest pain. She denies any current nausea. Christine catheter was removed and at the time that I saw her she had not urinated, but afterward she did have a large incontinence of urine. Bladder scan afterward showed about 150 ML's of urine present. She does not have bowel movements since she is nothing by mouth except for fluids. Vital signs were reviewed. She has a borderline mild tachycardia which on review of [facility] records was present there as well. She has not had any fever. Blood pressure is okay. On exam the patient is mildly drowsy but in no acute distress. Oropharynx is moist. Neck is supple. Chest is clear to auscultation. Cardiovascular reveals a regular rhythm and a borderline tachycardic rate. Abdomen reveals an open abdominal wound with a clear dressing. There is some yellowish drainage. Extremities are free of edema. SCDs are in place. Regarding sepsis, continue current antibiotics. Regarding the patient's recent sepsis likely from abdominal source, will consult Dr. Puente to see the patient on Sunday. We'll continue to monitor white count. Continue TPN for malnutrition. Continue to monitor hemoglobin regarding anemia. Regarding acute kidney injury, the patient was seeing Dr. Massimo Pina at [facility]. Her BUN over the past week was ranging from 59-85. I did discontinue ibuprofen that was started here to prevent worsening of acute kidney injury. We' ll need to monitor renal function and fluid status carefully, especially with Christine catheter out. 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 I did discuss the importance of accurate I&O's as much as is possible with her incontinence We'll monitor vital signs frequently and call parameters were placed We'll continue to monitor lab work fairly frequently. 05/12/2017--Dr. 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 The patient also had a new intra-abdominal fluid collection at that time that was 4.1 x 4.1 x 4.6 cm.-the patient has received 3 weeks of tigecycline. Decision made by Dr. Puente/Dr. Lewis of ID on 05/11 to hold further tigecycline. WBC decreased today. Leukocytosis, improved to 14K today, monitoring. Chronic anemia, Hb 7.7, may need PRBC if continued decline. Elevated BUN-trending down Protein calorie malnutrition-requiring TPN with planned usp need, adjusting per pharmacy Hypertension Diabetes? Versus hyperglycemia from TPN--well controlled currently Chronic abdominal pain secondary to open abdominal wound and pancreatic pseudocyst--suspect not absorbing the po meds well, pain not controlled Decubitus ulcer Pancreatic pseudocyst with unsuccessful attempt for endoscopic cyst stress study on 05/01/2017 History of metastatic neuroendocrine tumor, status post resection History of recurrent acute kidney injury secondary to volume depletion from high output abdominal drainage Debility secondary to prolonged illness Plan Severe pain today and not really able to participate with therapy Not likely absorbing the po meds well, unit policy precludes IV narcotics, d/w Dr. Woo and will increase fentanyl patch to 100 mcg and monitor for improvement with that change. Continue TPN, will increase K and discuss with pharmacy re: total volume in the setting of high drain outputs. Hold further saline today unless evidence of volume depletion, overall volume status appears stable although difficult to assess in her. Recheck CBC, renal panel in AM and CMP Sunday. Continue to encourage participation with therapy. 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 The patient also had a new intra-abdominal fluid collection at that time that was 4.1 x 4.1 x 4.6 cm.-the patient has received 3 weeks of tigecycline. Decision made by Dr. Puente/Dr. Lewis of ID on 05/11 to hold further tigecycline. WBC decreased again today. Afebrile Leukocytosis, improved to 12K today, monitoring. Chronic anemia, Hb 7.5, may need PRBC if continued decline. Elevated BUN-trending down daily, no evidence of intravascular depletion, off saline currently Protein calorie malnutrition-requiring TPN with planned usp need, adjusting per pharmacy, electrolytes stable today Hypertension per history, recent BP marginal in the 90-100 range systolic Diabetes? Versus hyperglycemia from TPN--well controlled currently Chronic abdominal pain secondary to open abdominal wound and pancreatic pseudocyst--suspect not absorbing the po meds well, pain not controlled Decubitus ulcer Pancreatic pseudocyst with unsuccessful attempt for endoscopic cyst stress study on 05/01/2017 History of metastatic neuroendocrine tumor, status post resection History of recurrent acute kidney injury secondary to volume depletion from high output abdominal drainage, volume status stable currently Debility secondary to prolonged illness Plan Continue with current pain control regimen, will defer any further changes to Dr. Woo, comfortable when resting Not likely absorbing the po meds well but has fentanyl patch, increased to 100 mcg on 05/12, monitor Hold any medications that would drop her blood pressure and monitor for signs of infection Continue TPN per pharmacy Hold further saline today unless evidence of volume depletion, labs and exam stable CBC, CMP in AM Continue to encourage participation with therapy. 05/15/17 Plan Continue with current pain control regimen, will defer any further changes to Dr. Woo, comfortable when resting Cory area of erythema to monitor of evidence of extension. Discussed with OT regarding assessing if there is any irritation or rubbing on the right rivas with patient's leg brace. Will evaluate if more padding as needed. Patient verbalizes this area of her leg is so uncomfortable. She is unable to work with therapy or stand. Regarding increased fever overnight, blood cultures have been drawn and are preliminary negative. Will continue to monitor. Leukocytosis remained stable and is trending down. Continue to monitor hemoglobin as this is slightly decreased, likely secondary to dilution given IV fluids overnight. Continue with wound care. Continue to encourage work with PT and OT for ongoing strengthening Plan- 05/16/17 Erythema of RLE is gone and pain has greatly improved. MRI of the Right ankle was obtained and reveled diffuse osteoporosis with mild subQ edema. Since the erythema has improved will hold off on any antibiotic treatment. She has remained afebrile and WBC count remains stable. Appreciated recommendations by Dr Puente to avoid antibiotics if possible. Appreciate Dr Gayle consultation for further recommendations. Continue with TPN for nutrition. Carefully monitor electrolytes. 05/19/17 Leukocytosis persistent but stable; abx continue to hold. Remains afebrile. BP have remained low but stable; MAP >65 mm Hg. Hgb up to 7.9; thrombocytosis also noted in 05/20/17 Pain remains a major concern of pt. She continues on Fentanyl 100mcg/PRN oxycodone/PRN Morphine BID. Will add TID Gabapentin elixer. Consider adding Cymbalta for pain control and anxiety once we see how she is tolerating gabapentin. Continue TPN, pharmacy following. Continue monitoring labs/accu checks. Consider bladder training to DC christine. Persistent leukocytosis with reactive thrombocytosis- consider repeating CT scan if she becomes febrile. Continue strengthening exercises. 05/21/17 Fever of 101.3 this am. WBC up to 15. BC sent. UA positive with sample from catheter - culture was sent. Will check CXR due to SOA. Platelets up to 510. Dr. Puente is planning on re-evaluating her today. Will check lactate and procalcitonin. ?Repeat CT? Continue pain control; change gabapentin to pill but we may need to revert back to elixer if ineffective. BUN and creatinine are trending up - will give 1L NS. Continue bladder retraining. LFTs increasing - could be related to TPN.
[2017-05-21] MEDS ORDERED: CALCIUM CARBONATE Chewable 500mg TABLET PO PRN (11:25)
--- NOTE | 2017-05-21 11:50 | XRay Report ---
EXAM: XR chest 1V LOCATION OF DICTATION: [facility] HISTORY: short of breath, fever COMPARISON: May 16, 2017 and April 15, 2017. FINDINGS: The heart size is normal. The mediastinal configuration is within normal limits. Left-sided subclavian central venous catheter in place the tip overlying the lower SVC right atrial junction. Limited depth of inspiration. There are no consolidating opacities or pleural effusions. There is no pneumothorax. The osseous structures are within normal limits for the patient's age. IMPRESSION: 1. Limited depth of inspiration. No consolidating opacities. 2. Heart size is normal. 3. Left subclavian central venous catheter in place with the tip about the SVC right atrial junction. .
--- NOTE | 2017-05-21 12:02 | Progress Note ---
Subjective Date: 05/21/17 Subjective: Ms. Giron had a fever this morning to 101.3, and she's had some tachycardia. She states she feels like "poo." She denies any particular problems over the weekend. She apparently had some bladder spasms over the weekend, but reports this is better today. She denies any shortness of breath to me. She thinks she might have vomited once over the weekend. Blood cultures , UA and urine culture have been ordered, as well as a CXR. She asks for tums for heartburn. Exam Vital Signs: Temperature 98.9 F 05/21/17 11:42 Pulse Rate 102 H 05/21/17 11:42 Respiratory Rate 24 05/21/17 11:42 Blood Pressure 94/62 05/21/17 11:42 Pulse Oximetry 95 05/21/17 11:42 Oxygen Delivery Method Room Air Fraction of Inspired Oxygen 21 Height/Weight/BMI: Height 1.57 m Weight 70 kg Body Mass Index 26.2 - Constitutional Present: other (chronically ill-appearing) - Routine HEENT Exam Head: Present: normocephalic, atraumatic Eye: Present: EOMI, PERRL ENT: Present: mucous membranes moist, dentition normal - Routine Neck Exam Present: supple - Routine Respiratory Exam Present: CTA bilaterally (anteriorly). Absent: accessory muscle use - Routine Cardiovascular Exam Present: RRR. 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 - Routine Exam Comments: christine in place - Routine Extremities Exam Absent: edema Comments: contractures bilateral feet, no joint effusions - Routine Skin Exam Absent: rash Comments: LUE PICC site ok - Routine Neurological Exam Present: alert, oriented X3, CN II-XII intact - Routine Psychiatric Exam Present: normal affect Results - Labs CBC & Chem 7: 05/21/17 04:25 05/21/17 04:25 Microbiology Results: Microbiology 05/21/17 05:09 Peripheral/Iv Start Blood Culture - Preliminary Culture Initiated - Results Pending 05/21/17 05:10 Peripheral/Iv Start Blood Culture - Preliminary Culture Initiated - Results Pending 05/21/17 05:01 Urine, Voided (Cc/notcc) Urine Culture - Preliminary Culture Initiated - Results Pending 05/14/17 22:43 Cath/Port/Line/Picc Blood Culture - Final No Growth After 5 Days 05/14/17 22:46 Cath/Port/Line/Picc Blood Culture - Final No Growth After 5 Days Impression: * Recent sepsis, NOS, likely secondary to pancreatic pseudocyst, unable to be drained on 05/01. * Intra-abdominal fluid collection (4.1 x 4.1 x 4.6cm) * Leukocytosis, improving * Nausea/vomiting, improved after stopping Tygacil. * Abdominal pain, chronic, but worse per patient. * H/o urine culture with >100K of Kleb. pneumoniae, ESBL positive, suspect colonization. * H/o rash on Merrem, Vancomycin, PCN, cephalosporins * H/o CLABSI with E. faecalis, s/p CVL removal 03/26, treated with Tygacil (due to allergies) through 04/09. * H/o pancreatic pseudocyst/acute pancreatitis * H/o recurrent peritonitis due to enteric leaks * Colocutaneous fistula on chronic TPN * H/o bile leak s/p stent and eventual removal * Metastatic neuroendocrine tumor s/p resection * Coccyx wound * Debilitation/malnutrition * R ankle pain, disuse osteoporosis on MRI * Fever 05/14, blood cultures NGTD. Fever 05/20, blood cultures pending Recommendation: Clinically, she looks stable to me. In the past, she has refused when I tried to start her on Merrem due to her allergies. Recommend giving some extra IVF as her creatinine is trending up. Will follow up on cultures and monitor closely. Procalcitonin is 0.7. Lactate is 2.7. If she continues to have fever , could continue resuming Tygacil, as she has tolerating that in the past, although she did eventually have N/V related to it. Discussed with Malathi Agarwal APRN. Sepsis Assessment - Evaluation Sepsis screening result: No Definite Risk
[2017-05-21] MEDS ORDERED: NS 1,000 ML IV SCH (12:15)
[2017-05-21] MEDS: PROMETHAZINE 25 MG INJECTION IVP PRN ×2 (13:38→20:40)
[2017-05-21] MEDS: [UNRECOGNIZED DRUG - OTHER] IV SCH (15:35)
[2017-05-21] MEDS: POTASSIUM CHLORIDE IV SCH (15:35)
[2017-05-21] MEDS: SODIUM CHLORIDE IV SCH (15:35)
[2017-05-21] MEDS: SODIUM ACETATE IV SCH (15:35)
[2017-05-21] MEDS: FAT EMULSION 20% 100 ML IV SCH (15:36)
[2017-05-22] MEDS ORDERED: TIGECYCLINE 50 MG in NS 100 ML IV ONE (00:30)
[2017-05-22] MEDS ORDERED: TIGECYCLINE 100 MG in NS 100 ML IV ONE (00:30)
[2017-05-22] MEDS: Oxycodone *IR* 5 MG TABLET PO PRN ×3 (03:38→22:33)
--- NOTE | 2017-05-22 08:59 | Progress Note ---
<AnyMalathi D - Last Filed: 05/22/17 08:50> Subjective: Laura spiked a fever again last night around midnight, 101 degrees. She states that she just doesn't feel well. She is weak and feels sick. She complains of a sore throat and pain when she swallows. She denies any shortness of breath or cough. Hgb also dropped to 6.9 this am. Objective Vital signs: Temperature 98.5 F 05/22/17 07:28 Pulse Rate 102 H 05/22/17 07:28 Respiratory Rate 16 05/22/17 07:28 Blood Pressure 99/65 05/22/17 07:28 Pulse Oximetry 95 05/22/17 07:28 Oxygen Delivery Method Room Air Fraction of Inspired Oxygen 21 Height/Weight/BMI: Height 1.57 m Weight 70 kg Body Mass Index 26.2 - Constitutional Present: no acute distress - Routine HEENT Exam ENT: Present: mucous membranes dry, oropharynx clear Comments: anterior cervical tenderness, R>L; + lymphadenopathy. No trismus. - Routine Respiratory Exam Present: CTA bilaterally (anterior breath sounds clear) - Routine Cardiovascular Exam Present: RRR, S1, S2 - Routine Abdominal Exam Comments: dressing intact - Routine Exam Comments: Christine in place - Routine Extremities Exam Present: no edema, pulses intact, normal capillary refill - Routine Musculoskeletal Exam Musculoskeletal: Present: contractures (both feet) - Routine Skin Exam Present: intact, warm - Routine Neurological Exam Present: alert, oriented X3, CN II-XII intact - Routine Lymphatic Exam Lymphatic: Present: adenopathy - Routine Psychiatric Exam Present: normal affect, normal thought process, cooperative Results - Labs CBC & Chem 7: 05/22/17 05:01 05/22/17 05:01 Microbiology Results: Microbiology 05/21/17 05:09 Peripheral/Iv Start Blood Culture - Preliminary No Growth After 1 Day 05/21/17 05:10 Peripheral/Iv Start Blood Culture - Preliminary No Growth After 1 Day 05/21/17 05:01 Urine, Voided (Cc/notcc) Urine Culture - Preliminary No Growth After 1 Day 05/14/17 22:43 Cath/Port/Line/Picc Blood Culture - Final No Growth After 5 Days 05/14/17 22:46 Cath/Port/Line/Picc Blood Culture - Final No Growth After 5 Days Assessment and Plan (1) Open abdominal wall wound Current visit: Yes Status: Chronic (2) Myopathy Problem details: Critical illness myopathy Current visit: Yes Status: Acute Resuscitation Status: Full Code Assessment and Plan: Impression RLE - erythema - improved 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 Luu/Dr. Omar Brown) Recent sepsis likely from pancreatic pseudocyst, not otherwise specified organism, unable to drain pseudocyst on 05/01/2017 (Dr. MICHAEL Flores). The patient also had a new intra-abdominal fluid collection at that time that was 4.1 x 4.1 x 4.6 cm.-the patient has received 3 weeks of tigecycline. Decision made by Dr. Puente/Dr. Lewis of [place] on 05/11 to hold further tigecycline. Leukocytosis Chronic anemia Thrombocytosis 05/19 Elevated BUN-trending down, no evidence of intravascular depletion LFT elevation, possibly from TPN Protein calorie malnutrition-requiring TPN with planned intermediate school teacher need, adjusting per pharmacy, electrolytes stable today Hypertension per history, recent BP marginal in the 90-100 range systolic Diabetes? Versus hyperglycemia from TPN--well controlled currently Chronic abdominal pain secondary to open abdominal wound and pancreatic pseudocyst--suspect not absorbing the po meds well, pain not controlled Decubitus ulcer Pancreatic pseudocyst with unsuccessful attempt for endoscopic cyst stress study on 05/01/2017 History of metastatic neuroendocrine tumor, status post resection History of recurrent acute kidney injury secondary to volume depletion from high output abdominal drainage, volume status stable currently Debility secondary to prolonged illness R ankle pain, disuse osteoporosis on MRI Plan 05/22/17 Recurrent fever since 05/21/17. Night doctors gave her a one-time dose of tigecycline after temp increased again to 101. UA and BC show no growth after 1 day. CXR was negative. Swab throat for strep. Discussed with Dr. Puente - CT soft tissue of neck. Continue tigecycline. Hgb decreased to 6.9 - repeat now. May need transfusion. She received a liter of NS yesterday. Will give 1 more liter today. BP has been low to low-normal, which is typical for her. Continue TPN. Monitor for fluid overload since she's getting some extra IVF. Sepsis Assessment - Evaluation Sepsis screening result: No Definite Risk Hospital Course Summary Disclaimer: The visit summary below is not to be considered part of the above Progress Note. Hospital Course: 05/09/17 10:24 Impression: Generalized debility and myopathy secondary to prolonged hospitalizations, acute. * Continue to encourage participation in therapies as patient's goal is to return home with the ability to dress self and ambulate short distances. Therapy reports that she has been doing well and was able to walk 6 steps yesterday. Continue to provide safe and supportive environment. Recent sepsis secondary to E. faecalis CLABSI and recurrent peritonitis due to enteric leak, acute. * Continue tigecycline per Dr. Lewis, to be completed on 05/19. Will discontinue Christine catheter today. Will provide a commode initially to encourage successful toileting until patient strength and endurance improved. Leukocytosis, persistent, present on admission. * WBC on admission 14.4. Continue to monitor trends periodically throughout admission. Patient remains afebrile and WBC trending down as compared to prior recent labs from previous admission. Recheck CBC in AM to monitor blood count trends. Hyperphosphoremia, acute. * Phosphorus elevated at 4.9. Pharmacy notified and will adjust TPN. Will recheck in AM as well as BMP to monitor electrolytes and renal function and continue to monitor trends. Anemia, chronic secondary to chronic disease. * Present on admission with hemoglobin 9.3. Improved from prior admissions. Monitor periodically throughout admission. Moderate protein calorie malnutrition, chronic. * Prealbumin 8.5 on admission. Continue TPN per pharmacy. As patient continues to vomit with large amounts of fluids orally, recommend providing no more than 150cc liquid at a time and encourage slow, small, frequent sips. Encourage boost as able. Hypertension, chronic. * Blood pressures well controlled and borderline low at times. Continue to monitor closely. Diabetes, chronic. * Continue to monitor BGMs, especially in light of TPN. Sliding scale insulin as indicated. Intractable abdominal pain and nausea with draining abdominal wound, chronic. * Pain control per Dr. Woo. Continue Zofran and Phenergan for nausea/ vomiting. Decubitus ulcer, coccyx, chronic. * Wound care team to continue to monitor. Monitor closely for signs of worsening. Continue to encourage patient to do position adjustments frequently , at least Q2 hours. Pancreatic pseudocyst, chronic. * Unsuccessful attempt for endoscopic cyst gastrostomy for drainage on 05/01/17. Metastatic neuroendocrine tumor, s/p resection, chronic. 05/09/2017-I reviewed this chart, the patient history, and the LAMINATION MACHINE OPERATOR's/PA's documented findings as above. We discussed and formulated the assessment and plan as above with the additions below. I've seen and examined the patient independently.-Dr. Olivier The patient states that she is doing okay. She is having some chronic abdominal pain but it is better this evening. She denies any shortness of breath or chest pain. She denies any current nausea. Christine catheter was removed and at the time that I saw her she had not urinated, but afterward she did have a large incontinence of urine. Bladder scan afterward showed about 150 ML's of urine present. She does not have bowel movements since she is nothing by mouth except for fluids. Vital signs were reviewed. She has a borderline mild tachycardia which on review of [facility] records was present there as well. She has not had any fever. Blood pressure is okay. On exam the patient is mildly drowsy but in no acute distress. Oropharynx is moist. Neck is supple. Chest is clear to auscultation. Cardiovascular reveals a regular rhythm and a borderline tachycardic rate. Abdomen reveals an open abdominal wound with a clear dressing. There is some yellowish drainage. Extremities are free of edema. SCDs are in place. Regarding sepsis, continue current antibiotics. Regarding the patient's recent sepsis likely from abdominal source, will consult Dr. Puente to see the patient on Sunday. We'll continue to monitor white count. Continue TPN for malnutrition. Continue to monitor hemoglobin regarding anemia. Regarding acute kidney injury, the patient was seeing Dr. Massimo Pina at [facility]. Her BUN over the past week was ranging from 59-85. I did discontinue ibuprofen that was started here to prevent worsening of acute kidney injury. We' ll need to monitor renal function and fluid status carefully, especially with Christine catheter out. 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 I did discuss the importance of accurate I&O's as much as is possible with her incontinence We'll monitor vital signs frequently and call parameters were placed We'll continue to monitor lab work fairly frequently. 05/12/2017--Dr. 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 The patient also had a new intra-abdominal fluid collection at that time that was 4.1 x 4.1 x 4.6 cm.-the patient has received 3 weeks of tigecycline. Decision made by Dr. Puente/Dr. Lewis of [place] on 05/11 to hold further tigecycline. WBC decreased today. Leukocytosis, improved to 14K today, monitoring. Chronic anemia, Hb 7.7, may need PRBC if continued decline. Elevated BUN-trending down Protein calorie malnutrition-requiring TPN with planned intermediate school teacher need, adjusting per pharmacy Hypertension Diabetes? Versus hyperglycemia from TPN--well controlled currently Chronic abdominal pain secondary to open abdominal wound and pancreatic pseudocyst--suspect not absorbing the po meds well, pain not controlled Decubitus ulcer Pancreatic pseudocyst with unsuccessful attempt for endoscopic cyst stress study on 05/01/2017 History of metastatic neuroendocrine tumor, status post resection History of recurrent acute kidney injury secondary to volume depletion from high output abdominal drainage Debility secondary to prolonged illness Plan Severe pain today and not really able to participate with therapy Not likely absorbing the po meds well, unit policy precludes IV narcotics, d/w Dr. Woo and will increase fentanyl patch to 100 mcg and monitor for improvement with that change. Continue TPN, will increase K and discuss with pharmacy re: total volume in the setting of high drain outputs. Hold further saline today unless evidence of volume depletion, overall volume status appears stable although difficult to assess in her. Recheck CBC, renal panel in AM and CMP Sunday. Continue to encourage participation with therapy. 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 The patient also had a new intra-abdominal fluid collection at that time that was 4.1 x 4.1 x 4.6 cm.-the patient has received 3 weeks of tigecycline. Decision made by Dr. Puente/Dr. Lewis of [place] on 05/11 to hold further tigecycline. WBC decreased again today. Afebrile Leukocytosis, improved to 12K today, monitoring. Chronic anemia, Hb 7.5, may need PRBC if continued decline. Elevated BUN-trending down daily, no evidence of intravascular depletion, off saline currently Protein calorie malnutrition-requiring TPN with planned [facility] need, adjusting per pharmacy, electrolytes stable today Hypertension per history, recent BP marginal in the 90-100 range systolic Diabetes? Versus hyperglycemia from TPN--well controlled currently Chronic abdominal pain secondary to open abdominal wound and pancreatic pseudocyst--suspect not absorbing the po meds well, pain not controlled Decubitus ulcer Pancreatic pseudocyst with unsuccessful attempt for endoscopic cyst stress study on 05/01/2017 History of metastatic neuroendocrine tumor, status post resection History of recurrent acute kidney injury secondary to volume depletion from high output abdominal drainage, volume status stable currently Debility secondary to prolonged illness Plan Continue with current pain control regimen, will defer any further changes to Dr. Woo, comfortable when resting Not likely absorbing the po meds well but has fentanyl patch, increased to 100 mcg on 05/12, monitor Hold any medications that would drop her blood pressure and monitor for signs of infection Continue TPN per pharmacy Hold further saline today unless evidence of volume depletion, labs and exam stable CBC, CMP in AM Continue to encourage participation with therapy. 05/15/17 Plan Continue with current pain control regimen, will defer any further changes to Dr. Woo, comfortable when resting Cory area of erythema to monitor of evidence of extension. Discussed with OT regarding assessing if there is any irritation or rubbing on the right rivas with patient's leg brace. Will evaluate if more padding as needed. Patient verbalizes this area of her leg is so uncomfortable. She is unable to work with therapy or stand. Regarding increased fever overnight, blood cultures have been drawn and are preliminary negative. Will continue to monitor. Leukocytosis remained stable and is trending down. Continue to monitor hemoglobin as this is slightly decreased, likely secondary to dilution given IV fluids overnight. Continue with wound care. Continue to encourage work with PT and OT for ongoing strengthening Plan- 05/16/17 Erythema of RLE is gone and pain has greatly improved. MRI of the Right ankle was obtained and reveled diffuse osteoporosis with mild subQ edema. Since the erythema has improved will hold off on any antibiotic treatment. She has remained afebrile and WBC count remains stable. Appreciated recommendations by Dr Puente to avoid antibiotics if possible. Appreciate Dr Gayle consultation for further recommendations. Continue with TPN for nutrition. Carefully monitor electrolytes. 05/19/17 Leukocytosis persistent but stable; abx continue to hold. Remains afebrile. BP have remained low but stable; MAP >65 mm Hg. Hgb up to 7.9; thrombocytosis also noted in 05/20/17 Pain remains a major concern of pt. She continues on Fentanyl 100mcg/PRN oxycodone/PRN Morphine BID. Will add TID Gabapentin elixer. Consider adding Cymbalta for pain control and anxiety once we see how she is tolerating gabapentin. Continue TPN, pharmacy following. Continue monitoring labs/accu checks. Consider bladder training to DC christine. Persistent leukocytosis with reactive thrombocytosis- consider repeating CT scan if she becomes febrile. Continue strengthening exercises. 05/21/17 Fever of 101.3 this am. WBC up to 15. BC sent. UA positive with sample from catheter - culture was sent. Will check CXR due to SOA. Platelets up to 510. Dr. Puente is planning on re-evaluating her today. Will check lactate and procalcitonin. ?Repeat CT? Continue pain control; change gabapentin to pill but we may need to revert back to elixer if ineffective. BUN and creatinine are trending up - will give 1L NS. Continue bladder retraining. LFTs increasing - could be related to TPN. 05/22/17 Recurrent fever since 05/21/17. Night doctors gave her a one-time dose of tigecycline after temp increased again to 101. UA and BC show no growth after 1 day. CXR was negative. Swab throat for strep. Discussed with Dr. Puente - CT soft tissue of neck. Continue tigecycline. Hgb decreased to 6.9 - repeat now. May need transfusion. She received a liter of NS yesterday. Will give 1 more liter today. BP has been low to low-normal, which is typical for her. Continue TPN. Monitor for fluid overload since she's getting some extra IVF. <Tracy Bailey - Last Filed: 05/22/17 20:47> Objective Vital signs: Temperature 99 F 05/22/17 19:23 Pulse Rate 96 05/22/17 19:23 Respiratory Rate 20 05/22/17 19:23 Blood Pressure 96/63 05/22/17 19:23 Pulse Oximetry 96 05/22/17 19:23 Oxygen Delivery Method Room Air Fraction of Inspired Oxygen 21 Height/Weight/BMI: Height 1.57 m Weight 70 kg Body Mass Index 26.2 Results - Labs CBC & Chem 7: 05/22/17 17:37 05/22/17 05:01 Microbiology Results: Microbiology 05/22/17 10:27 Throat Group A Streptococcus Culture - Preliminary Culture Initiated - Results Pending 05/21/17 05:01 Urine, Voided (Cc/notcc) Urine Culture - Preliminary Gram Negative Nader 05/21/17 05:09 Peripheral/Iv Start Blood Culture - Preliminary No Growth After 1 Day 05/21/17 05:10 Peripheral/Iv Start Blood Culture - Preliminary No Growth After 1 Day 05/14/17 22:43 Cath/Port/Line/Picc Blood Culture - Final No Growth After 5 Days 05/14/17 22:46 Cath/Port/Line/Picc Blood Culture - Final No Growth After 5 Days Assessment and Plan (1) Open abdominal wall wound Current visit: Yes Status: Chronic (2) Myopathy Problem details: Critical illness myopathy Current visit: Yes Status: Acute Assessment and Plan: I have independently evaluated and examined this patient. I reviewed the chart, the patient's history, and the LAMINATION MACHINE OPERATOR/PA's documented findings as above. We discussed and formulated the assessment and plan as above with additions as below: Laura was seen late afternoon at which time she continued to complain of sore throat and generalized achiness. Transfusion had been completed. CT of the neck was deferred due to blood transfusion and patient request. Unable to actively participate in physical therapy today per patient report. There is mild soft tissue tenderness without focal adenopathy on palpation in the submandibular region bilaterally, faint white plaque on the tongue without ulceration and no erythema or soft tissue swelling in the oropharynx. Respirations nonlabored, diminished airflow/inspiratory effort, breath sounds clear Large abdominal wound with serous drainage, no surrounding erythema, granulation tissue present. Repeat hemoglobin 8.6; white count slightly improved today without left shift. Suggestion of thrush-initiate oral nystatin. Reassess head and neck symptoms tomorrow, consider imaging. Hospital Course Summary Disclaimer: The visit summary below is not to be considered part of the above Progress Note. Addendum entered and electronically signed by Malathi Agarwal APRN 05/22/17 11: 53: Patient refused CT scan of her neck. Repeat hgb came back at 6.9. PRBC transfusion ordered; pt agrees.
[2017-05-22] MEDS ORDERED: SALINE FLUSH 10ml SYRINGE ONE (09:20)
[2017-05-22] MEDS ORDERED: IOHEXOL 300mg/ml 75ml INJECTION ONE (09:20)
[2017-05-22] MEDS ORDERED: NS 0 ML ONE (09:20)
--- NOTE | 2017-05-22 09:47 | Pharmacy Consult-TPN/PPN ---
Pharmacy Consult-TPN/PPN - Laboratory Information Chemistry Turbidity < 20 (0-20) 05/22/17 05:01 Sodium 135 MEQ/L (134-144) 05/22/17 05:01 Potassium 3.7 MEQ/L (3.6-5) 05/22/17 05:01 Chloride 98 MEQ/L (98-107) 05/22/17 05:01 Carbon Dioxide 32 MEQ/L (22-30) H 05/22/17 05:01 Anion Gap 5 MEQ/L (5-15) 05/22/17 05:01 BUN 37.0 MG/DL (7-17) H 05/22/17 05:01 Creatinine 1.0 MG/DL (0.7-1.2) 05/22/17 05:01 GFR Calculation 61 05/22/17 05:01 BUN/Creatinine Ratio 37 RATIO (6-26) H 05/22/17 05:01 Glucose 94 MG/DL (65-110) 05/22/17 05:01 Glucometer 125 mg/dL (65-110) 05/21/17 20:16 Calculated Osmolality 269 MOSM/KG (261-280) 05/22/17 05:01 Uric Acid 3.6 MG/DL (2.5-7.5) 05/15/17 01:01 Calcium 8.0 MG/DL (8.4-10.2) L 05/22/17 05:01 Phosphorus 4.2 MG/DL (2.5-4.5) 05/22/17 05:01 Magnesium 2.1 MG/DL (1.6-2.3) 05/22/17 05:01 Total Bilirubin 1.00 MG/DL (0.20-1.30) 05/22/17 05:01 Icterus Index < 2 (0-7) 05/22/17 05:01 AST 71 U/L (14-36) H 05/22/17 05:01 ALT 55 U/L (9-52) H 05/22/17 05:01 Alkaline Phosphatase 411 U/L (38-126) H 05/22/17 05:01 Total Protein 5.7 G/DL (6.3-8.2) L 05/22/17 05:01 Albumin 2.2 G/DL (3.5-5.0) L 05/22/17 05:01 Globulin 3.5 G/DL (2.4-3.6) 05/22/17 05:01 Albumin/Globulin Ratio 0.6 RATIO (1.1-2.2) L 05/22/17 05:01 Prealbumin 6.9 MG/DL (17.6-36.0) L 05/17/17 05:01 Plasma Lactate 2.6 MMOL/L (0.6-2.2) H 05/21/17 15:04 Procalcitonin 0.70 NG/ML 05/21/17 10:50 Specimen Hemolysis 17 (0-25) 05/22/17 05:01 Intake and Output 05/21/17 05/22/17 05/23/17 06:59 06:59 06:59 Intake Total 2432.5 / 2432.5 2403.75 / 2403.75 Output Total 1949 / 1949 2530 / 2530 Balance 482.5 / 482.5 -126.25 / -126.25 Intake: IV / 2011. 1683.75 / 1683.75 Intralipid 20% 100 ml @ 100 / 100 100 / 100 50 mls/hr IV 1600 SEAN Rx# :[id number] Sodium Chloride Conc 4 1912.5 / 1912.5 1583.75 / 1583.75 Meq/ml Sodium Acetate 80 Meq KCl 20 Meq K Phos Inj 20 Meq Magnesium Sulfate Inj 16 Meq Calcium Gluconate 9.3 Meq Infuvite Adult 10 ml Multi-Trace Elements 1 ml Folate 2 mg Vitamin B-1 100 mg Potassium Acetate Inj 40 Meq/20 ml In TPN - Custom Formula 2,000 ml @ 75 mls/hr IV .Q24H SEAN Rx#:[id number] Oral 420 / 420 720 / 720 Output: Stool 1000 / 1000 1750 / 1750 Emesis 200 / 200 Urine Amount (Catheter) 750 / 750 780 / 780 Other: # Unmeasured Emesis 1 Episodes - Consult Information We will continue the same Custom TPN formula as yesterday at the rate of 75mL per hour. Thanks
[2017-05-22] MEDS: SALINE FLUSH 10ml SYRINGE IV PRN ×2 (10:00→20:55)
[2017-05-22] MEDS: NS 1,000 ML IV SCH ×2 (10:02→19:50)
[2017-05-22] MEDS: TIGECYCLINE 50 MG in NS 100 ML IV SCH ×2 (10:02→20:55)
[2017-05-22] MEDS: MICONAZOLE 2% POWDER 45gm TP SCH ×2 (10:04→20:57)
[2017-05-22] MEDS: ENOXAPARIN 40 MG/0.4 ML INJECTION SQ SCH (10:04)
[2017-05-22] MEDS: DICLOFENAC 1% TOP GEL 100gm TP SCH ×4 (10:05→22:42)
[2017-05-22] MEDS: GABAPENTIN 100 MG CAPSULE PO SCH ×3 (10:06→20:55)
[2017-05-22] MEDS: CETIRIZINE 10 MG TABLET PO SCH (10:07)
[2017-05-22] MEDS ORDERED: NS FLUSH BAG 500ml IV PRN (10:24)
[2017-05-22] MEDS ORDERED: FUROSEMIDE 20 MG/2 ML INJECTION IVP ONE (10:24)
[2017-05-22] MEDS ORDERED: DiphenhydrAMINE 25 MG CAPSULE PO ONE (10:24)
[2017-05-22] MEDS: ACETAMINOPHEN 500 MG TABLET PO PRN (12:44)
[2017-05-22] MEDS: INSULIN ASPART SQ PRN (12:45)
--- NOTE | 2017-05-22 14:11 | IRU Team Meeting ---
IRU Team Meeting - Nursing Bladder Assistive Devices Utilized:: Catheter Bladder Management Level of Assist: Total Assistance Vital Signs: Vital Signs - 24 hr 05/21/17 15:58 05/21/17 17:48 05/21/17 19:20 Temperature 98.3 F 99.9 F 100.7 F H Pulse Rate 106 H 103 H 103 H Respiratory Rate 18 20 20 Blood Pressure 89/58 86/59 118/57 Pulse Oximetry 94 97 91 05/21/17 23:37 05/22/17 03:00 05/22/17 07:28 Temperature 101 F H 98.7 F 98.5 F Pulse Rate 107 H 106 H 102 H Respiratory Rate 20 20 16 Blood Pressure 99/55 109/53 99/65 Pulse Oximetry 95 93 95 05/22/17 12:55 Temperature 98.6 F Pulse Rate 101 H Respiratory Rate 16 Blood Pressure 98/58 Pulse Oximetry 92 Current Medications: Acetaminophen (Tylenol) 1,000 mg PO Q6H PRN PRN Reason: Pain Last Admin: 05/22/17 12:44 Dose: 1,000 mg Acetaminophen (Tylenol Supp) 650 mg MD Q4H PRN PRN Reason: Fever Albuterol/Ipratropium (Duoneb) 3 ml AEROSOL QID PRN PRN Reason: Shortness of air/wheezing Belladonna Alkaloids/Opium (B & O Supp 16.2/60) 1 supp MD Q12HR PRN Last Admin: 05/20/17 09:58 Dose: 1 supp Calcium Carbonate (Tums) 1,000 mg PO PRN PRN PRN Reason: Dyspepsia Last Admin: 05/21/17 11:57 Dose: 1,000 mg Cetirizine HCl (Zyrtec) 5 mg PO DAILY [facility] Last Admin: 05/22/17 10:07 Dose: Not Given Diclofenac Sodium (Voltaren) 1 applic TP QID [facility] Last Admin: 05/22/17 12:46 Dose: 1 applic Diphenhydramine HCl (Benadryl) 25 mg IVP Q8H PRN PRN Reason: Itching Last Admin: 05/21/17 05:18 Dose: 25 mg Enoxaparin Sodium (Lovenox) 40 mg SQ DAILY [facility] Last Admin: 05/22/17 10:04 Dose: 40 mg Fentanyl (Duragesic Patch) 100 mcg TD Q3D [facility] Last Admin: 05/20/17 10:06 Dose: 100 mcg Fentanyl Citrate (Duragesic Patch Removal) 1 removal TD Q3D [facility] Last Admin: 05/20/17 23:36 Dose: Not Given Furosemide (Lasix) 20 mg IVP DAILY PRN PRN Reason: NEEDED Gabapentin (Neurontin) 200 mg PO TID [facility] Last Admin: 05/22/17 10:06 Dose: 200 mg Glucagon (Glucagen) 1 mg IM PRN PRN PRN Reason: hypoglycemia Heparin Sodium (Beef Lung) (Heparin Flush) 100 unit IV BID [facility] Last Admin: 05/22/17 10:03 Dose: 100 unit Heparin Sodium (Beef Lung) (Heparin Flush) 100 unit IV BID [facility] Last Admin: 05/22/17 10:08 Dose: Not Given Heparin Sodium (Beef Lung) (Heparin Flush) 100 unit IV BID [facility] Last Admin: 05/22/17 10:08 Dose: Not Given Heparin Sodium (Beef Lung) (Heparin Flush) 100 unit IV PRN PRN Last Admin: 05/22/17 05:02 Dose: 100 unit Hydroxyzine HCl (Atarax) 25 mg PO QID PRN PRN Reason: Itching Last Admin: 05/22/17 03:40 Dose: 25 mg Fat Emulsion Intravenous (Intralipid 20%) 100 mls @ 50 mls/hr IV 1600 [facility] Last Infusion: 05/21/17 17:45 Dose: Infused Sodium Chloride 120 meq/Sodium Acetate 80 meq/Potassium Chloride 20 meq/ Potassium Phosphate 20 meq/Magnesium Sulfate 16 meq/Calcium Gluconate 9.3 meq/ Multivitamins/Minerals 10 ml/Chromium/Copper/Manganese/Zinc 1 ml/ Folic Acid 2 mg/Thiamine HCl 100 mg/ Potassium Acetate 40 meq/ Amino Acids/Electrolytes 2, 140.9455 mls @ 75 mls/hr IV .Q24H [facility] Last Admin: 05/21/17 15:35 Dose: 75 mls/hr Sodium Chloride (Normal Saline) 1,000 mls @ 150 mls/hr IV .Q6H40M [facility] Last Admin: 05/22/17 10:02 Dose: 150 mls/hr Tigecycline 50 mg/ Sodium (Chloride) 100 mls @ 100 mls/hr IV BID [facility] Last Admin: 05/22/17 10:02 Dose: 100 mls/hr Insulin Aspart (Novolog) 0 unit SQ PRN PRN PRN Reason: Protocol Last Admin: 05/22/17 12:45 Dose: 2 unit Lorazepam (Ativan Inj) 0.25 mg IM Q6H PRN PRN Reason: Anxiety Miconazole Nitrate (Desenex) 1 applic TP BID [facility] Last Admin: 05/22/17 10:04 Dose: Not Given Morphine Sulfate (Roxanol Oral Liq) 10 mg SL BID PRN PRN Reason: Severe pain Last Admin: 05/21/17 09:06 Dose: 10 mg Nystatin (Mycostatin) 1 applic TP BID [facility] Last Admin: 05/22/17 10:06 Dose: Not Given Ondansetron HCl (Zofran Po) 4 mg PO Q6H PRN PRN Reason: Nausea Last Admin: 05/18/17 08:35 Dose: 4 mg Ondansetron HCl (Zofran) 4 mg IV Q6H PRN PRN Reason: Nausea &/or vomiting Last Admin: 05/21/17 17:45 Dose: 4 mg Oxycodone HCl (Roxicodone *Ir*) 5 - 10 mg PO Q4HPRN PRN PRN Reason: Pain Last Admin: 05/22/17 10:01 Dose: 10 mg Polyethylene Glycol (Miralax) 17 gm PO DAILY PRN PRN Reason: Constipation Promethazine HCl (Phenergan Inj) 25 mg IVP Q4H PRN PRN Reason: NAUSEA & VOMITING Last Admin: 05/21/17 20:40 Dose: 25 mg Saliva Substitute (Biotene Moisturizing Mouth [place]) 4 spray PO QID PRN PRN Reason: Dry mouth Sodium Chloride (Iv Flush) 10 - 80 ml IV PRN PRN PRN Reason: Flushing Last Admin: 05/22/17 10:00 Dose: 30 ml Sodium Chloride (Normal Saline) 500 ml IV PRN PRN Comments: complains of bladder spasm - Physical Therapy Sit to Supine Bed Mobility Ability: Maximal Assistance Sit to Stand Chair Transfer Ability: Maximal Assistance - Occupational Therapy Eating Comment: only liquids Bathing Ability: Moderate Assistance Lower Body Dressing Ability: Moderate Assistance - Care Plan Anticipated Length of Stay: 4 (weeks) Anticipated DC Destination: Other (unknown) Interventions/Goals: to continue to motivate patient needs transfusion today
[2017-05-22] MEDS: SODIUM ACETATE IV SCH ×2 (15:49→17:46)
[2017-05-22] MEDS: POTASSIUM CHLORIDE IV SCH ×2 (15:49→17:46)
[2017-05-22] MEDS: [UNRECOGNIZED DRUG - OTHER] IV SCH ×2 (15:49→17:46)
[2017-05-22] MEDS: SODIUM CHLORIDE IV SCH ×2 (15:49→17:46)
[2017-05-22] MEDS: FAT EMULSION 20% 100 ML IV SCH (17:45)
[2017-05-22] MEDS: DiphenhydrAMINE 50 MG/ML INJECTION IVP PRN (22:40)
[2017-05-22] MEDS: NYSTATIN 500,000 units/5 ml ORAL LIQUID PO SCH (23:01)
[2017-05-23] MEDS: PROMETHAZINE 25 MG INJECTION IVP PRN ×2 (03:16→11:31)
[2017-05-23] MEDS: SALINE FLUSH 10ml SYRINGE IV PRN ×3 (03:17→21:46)
--- NOTE | 2017-05-23 08:28 | Pharmacy Consult-TPN/PPN ---
Pharmacy Consult-TPN/PPN - Laboratory Information Chemistry Turbidity < 20 (0-20) 05/23/17 04:59 Sodium 138 MEQ/L (134-144) 05/23/17 04:59 Potassium 3.3 MEQ/L (3.6-5) L 05/23/17 04:59 Chloride 97 MEQ/L (98-107) L 05/23/17 04:59 Carbon Dioxide 32 MEQ/L (22-30) H 05/23/17 04:59 Anion Gap 9 MEQ/L (5-15) 05/23/17 04:59 BUN 37.0 MG/DL (7-17) H 05/23/17 04:59 Creatinine 1.0 MG/DL (0.7-1.2) 05/23/17 04:59 GFR Calculation 61 05/23/17 04:59 BUN/Creatinine Ratio 37 RATIO (6-26) H 05/23/17 04:59 Glucose 87 MG/DL (65-110) 05/23/17 04:59 Glucometer 149 mg/dL (65-110) 05/22/17 20:45 Calculated Osmolality 274 MOSM/KG (261-280) 05/23/17 04:59 Uric Acid 3.6 MG/DL (2.5-7.5) 05/15/17 01:01 Calcium 8.0 MG/DL (8.4-10.2) L 05/23/17 04:59 Phosphorus 4.2 MG/DL (2.5-4.5) 05/22/17 05:01 Magnesium 2.1 MG/DL (1.6-2.3) 05/22/17 05:01 Total Bilirubin 1.00 MG/DL (0.20-1.30) 05/22/17 05:01 Icterus Index < 2 (0-7) 05/23/17 04:59 AST 71 U/L (14-36) H 05/22/17 05:01 ALT 55 U/L (9-52) H 05/22/17 05:01 Alkaline Phosphatase 411 U/L (38-126) H 05/22/17 05:01 Total Protein 5.7 G/DL (6.3-8.2) L 05/22/17 05:01 Albumin 2.2 G/DL (3.5-5.0) L 05/22/17 05:01 Globulin 3.5 G/DL (2.4-3.6) 05/22/17 05:01 Albumin/Globulin Ratio 0.6 RATIO (1.1-2.2) L 05/22/17 05:01 Prealbumin 6.9 MG/DL (17.6-36.0) L 05/17/17 05:01 Plasma Lactate 2.6 MMOL/L (0.6-2.2) H 05/21/17 15:04 Procalcitonin 0.93 NG/ML 05/23/17 04:59 Specimen Hemolysis < 15 (0-25) 05/23/17 04:59 Intake and Output 05/22/17 05/23/17 05/24/17 06:59 06:59 06:59 Intake Total 2403.75 / 2403.75 2924.5 / 2924.5 Output Total 2530 / 2530 3300 / 3300 Balance -126.25 / -126.25 -375.5 / -375.5 Intake: IV 1683.75 / 1683.75 2117.5 / 2117.5 Intralipid 20% 100 ml @ 100 / 100 100 / 100 50 mls/hr IV 1600 [facility] Rx# :[id number] Sodium Chloride Conc 4 1583.75 / 1583.75 1817.5 / 1817.5 Meq/ml Sodium Acetate 80 Meq KCl 20 Meq K Phos Inj 20 Meq Magnesium Sulfate Inj 16 Meq Calcium Gluconate 9.3 Meq Infuvite Adult 10 ml Multi-Trace Elements 1 ml Folate 2 mg Vitamin B-1 100 mg Potassium Acetate Inj 40 Meq/20 ml In TPN - Custom Formula 2,000 ml @ 75 mls/hr IV .Q24H [facility] Rx#:[id number] Tygacil 50 mg In Normal 200 / 200 Saline 100 ml @ 100 mls/ hr IV BID [facility] Rx#: [id number] Oral 720 / 720 807 / 807 Output: Stool 1750 / 1750 2000 / 1999 Urine Amount (Catheter) 780 / 780 1300 / 1300 Other: # Unmeasured Emesis 1 Episodes - Consult Information Adjusted the chloride and acetate in TPN. Also added 40meq of potassium to today 's formula. Will continue to monitor. Thank you.
[2017-05-23] MEDS: Oxycodone *IR* 5 MG TABLET PO PRN ×3 (08:30→21:01)
[2017-05-23] MEDS: ONDANSETRON ODT 4 MG TABLET PO PRN (08:30)
[2017-05-23] MEDS: MICONAZOLE 2% POWDER 45gm TP SCH ×2 (08:32→22:00)
[2017-05-23] MEDS ORDERED: GADOBUTROL 10mMol/10ml INJECTION IVP ONE (09:49)
[2017-05-23] MEDS ORDERED: IOTHALAMATE MEGLUMINE 60% (600mg/ml) 30ml INJ IV ONE (09:49)
[2017-05-23] MEDS ORDERED: NS 50 ML ONE (09:50)
[2017-05-23] MEDS: TIGECYCLINE 50 MG in NS 100 ML IV SCH ×2 (10:07→21:45)
[2017-05-23] MEDS: GABAPENTIN 100 MG CAPSULE PO SCH ×3 (10:16→21:46)
[2017-05-23] MEDS: CETIRIZINE 10 MG TABLET PO SCH (10:17)
[2017-05-23] MEDS: DICLOFENAC 1% TOP GEL 100gm TP SCH ×4 (10:20→22:01)
[2017-05-23] MEDS: NYSTATIN 500,000 units/5 ml ORAL LIQUID PO SCH ×4 (10:20→22:00)
[2017-05-23] MEDS: ENOXAPARIN 40 MG/0.4 ML INJECTION SQ SCH (10:56)
[2017-05-23] MEDS ORDERED: SORE THROAT SPRAY 20ml PO PRN (14:56)
--- NOTE | 2017-05-23 15:01 | IRU Progress Note ---
- Subjective/Serverity of Illness No change in overall condition. Continues to have a sore throat but the strep culture is negative so far. Has low-grade temp 99.2 today. Hemoglobins up to 9. Exam Vital Signs: Temperature 99.2 F 05/23/17 08:55 Pulse Rate 106 H 05/23/17 08:55 Respiratory Rate 20 05/23/17 08:55 Blood Pressure 117/67 05/23/17 08:55 Pulse Oximetry 91 05/23/17 08:55 Oxygen Delivery Method Room Air Fraction of Inspired Oxygen 21 Height/Weight/BMI: Height 1.57 m Weight 70 kg Body Mass Index 26.2 Sepsis Assessment - Evaluation Sepsis screening result: No Definite Risk IRU A/P DVT Prophylaxis: Lovenox Resuscitation Status: Full Code - Course Hospital Course: Yevgeniy Woo MD: 05/08/17 10:09 Initiating physical therapy and occupational therapy. Patient is cooperative this morning. Complains of chronic abdominal pain. Limiting oral intake in an effort to reduce leakage from the wound and allow patient to participate in therapy. She would like to increase the restriction from 120 up to 150 ML per hour. This will be allowed. This is excluding intake at mealtime. We will leave a cup at her bedside and I asked her to simply sip on this and not take it all at once. She agreed to do this. White count 14,000 but without evidence of active infection. She remains afebrile. Pain management is with patches and oral agents only. 05/09/17 11:50 Continues to require significant encouragement to participate with therapy. Walked 6 ft. Abd pain is remaining as ongoing pain issue. Protein calorie malnutrition addressed with TPN. 05/10/17 11:19 She is making slow progress. White count improved to 13,000. Appreciate hospitalists assistance. Lower extremity dressing is improved. Walking distance improved. Transfers minimally improved. Significant concerns about patient motivation and safety awareness remains. Abdominal pain, nausea and vomiting impact her therapy progress. 05/14/17 10:48 Has multiple medical problems. Making very slow progress. Frequently refuses therapy or at least postpones it. Requires much encouragement to participate. Increased fentanyl patch in an effort to improve her pain management. Continues on TPN. White count improved to 12,000. 05/15/17 10:39 Continues to be very complex. Had poor urine output but responded to fluid bolus. Requires total assistance for many ADLs. Increase fentanyl patch 2-3 days ago. Hopefully that will provide additional pain improvement. White count is improved. Hemoglobin down at 7.1. Does have right ankle pain now which impedes her progress. 05/16/17 10:54 Continues on TPN. Hemoglobin improved at 7.6. White count remains relatively low for her at 11,000. Right ankle pain appears to virtually have resolved. MRI shows disuse osteoporosis only. No evidence of active infection nor inflammation. Seems to have a better attitude today. We will continue current pain management although we did discuss the possibility of oral morphine yesterday. If we do that she will probably be able to tolerate the morphine concentrate and a sublingual or a lingual route. However we will hold off for the time being. Continues to require close medical management of multiple medical conditions. 05/18/17 09:56 Appreciate assistance of infectious disease and hospitalist service. Low-grade fever of 99 but stable white count at 12,000. No evidence of infection and ID recommends no antibiotics at present. Continues to require a lot of encouragement for therapies but is slowly improving. She indicated she does want to get back home. She would like to eat more and again we recommended no advance in her diet due to recurrent nausea and vomiting. She requires close medical management for multiple medical conditions. - Interventions to Obtain Goals PT Treatment Plan: Balance/Proprioception, Functional Activities, Gait Training , Patient/Family Education, Therapeutic Exercise OT Treatment Plan: ADL (Basic Care), Balance Training, Pt./Family Education, UE Functional Training Goals Progress/Modifications: We'll try Chloraseptic for her throat.
[2017-05-23] MEDS: SODIUM ACETATE IV SCH (16:41)
[2017-05-23] MEDS: POTASSIUM CHLORIDE IV SCH (16:41)
[2017-05-23] MEDS: [UNRECOGNIZED DRUG - OTHER] IV SCH (16:41)
[2017-05-23] MEDS: SODIUM CHLORIDE IV SCH (16:41)
[2017-05-23] MEDS: FAT EMULSION 20% 100 ML IV SCH (16:42)
--- NOTE | 2017-05-23 16:51 | Progress Note ---
Subjective: Laura is seen today in follow up while resting in bed. Nursing staff called this morning to evaluate abdominal drainage as nurse felt that it was more red in nature and was concerned about acute bleeding. Laura states she feels that the color changed several days ago. He continues to have mild to moderate amount of discomfort and that has not changed in nature. No further episodes of fever since 05/23 at midnight. He denies feeling short of breath and does continued to have a sore throat. Objective Vital signs: Temperature 99.2 F 05/23/17 08:55 Pulse Rate 106 H 05/23/17 08:55 Respiratory Rate 20 05/23/17 08:55 Blood Pressure 117/67 05/23/17 08:55 Pulse Oximetry 91 05/23/17 08:55 Oxygen Delivery Method Room Air Fraction of Inspired Oxygen 21 Height/Weight/BMI: Height 1.57 m Weight 70 kg Body Mass Index 26.2 - Constitutional Present: no acute distress, well nourished, well developed - Routine HEENT Exam Eye: Present: EOMI ENT: Present: mucous membranes moist, dentition normal - Routine Respiratory Exam Present: CTA bilaterally. Absent: wheezes - Routine Cardiovascular Exam Present: RRR, S1, S2, tachycardia (100). Absent: murmur - Routine Abdominal Exam Present: soft, normoactive bowel sounds, non distended. Absent: tenderness Comments: Wound and dressing intact. Drainage to LIS - Routine Extremities Exam Present: normal capillary refill - Routine Skin Exam Present: dry, warm - Routine Neurological Exam Present: alert, oriented X3 CN 3-12 - Routine Lymphatic Exam Lymphatic: Absent: adenopathy - Routine Psychiatric Exam Present: normal affect Results - Labs CBC & Chem 7: 05/23/17 04:59 05/23/17 04:59 Microbiology Results: Microbiology 05/22/17 10:27 Throat Group A Streptococcus Culture - Preliminary No Growth After 1 Day 05/21/17 05:01 Urine, Voided (Cc/notcc) Urine Culture - Final Klebsiella pneumoniae 05/21/17 05:09 Peripheral/Iv Start Blood Culture - Preliminary No Growth After 2 Days 05/21/17 05:10 Peripheral/Iv Start Blood Culture - Preliminary No Growth After 2 Days 05/14/17 22:43 Cath/Port/Line/Picc Blood Culture - Final No Growth After 5 Days 05/14/17 22:46 Cath/Port/Line/Picc Blood Culture - Final No Growth After 5 Days Assessment and Plan (1) Open abdominal wall wound Current visit: Yes Status: Chronic (2) Myopathy Problem details: Critical illness myopathy Current visit: Yes Status: Acute Assessment and Plan: 05/23/17-plan Continue to monitor gastric output. It is dark brown in nature. On evaluation of abdominal wound. No evidence of acute bleeding. Will continue to follow routine serum hemoglobin level. She did receive a blood transfusion yesterday. His hemoglobin did dip down to 6.9. Hemoglobin this morning is stable at 9.0. Return of mild hypokalemia. Will give a one-time dose of oral potassium supplementation. Strep throat swab remains negative. Oral nystatin ordered. Urine culture continues to reveal Klebsiella, which has been chronic for her. She continues on Tigecycline IV. May need to discuss this treatment course with Dr Puente. Recheck CBC and BMP tomorrow to follow blood counts, renal function and electrolytes. Continue to encourage work with PT and OT for ongoing strengthening Sepsis Assessment - Evaluation Sepsis screening result: No Definite Risk Hospital Course Summary Disclaimer: The visit summary below is not to be considered part of the above Progress Note. Hospital Course: 05/09/17 10:24 Impression: Generalized debility and myopathy secondary to prolonged hospitalizations, acute. * Continue to encourage participation in therapies as patient's goal is to return home with the ability to dress self and ambulate short distances. Therapy reports that she has been doing well and was able to walk 6 steps yesterday. Continue to provide safe and supportive environment. Recent sepsis secondary to E. faecalis CLABSI and recurrent peritonitis due to enteric leak, acute. * Continue tigecycline per Dr. Lewis, to be completed on 05/19. Will discontinue Christine catheter today. Will provide a commode initially to encourage successful toileting until patient strength and endurance improved. Leukocytosis, persistent, present on admission. * WBC on admission 14.4. Continue to monitor trends periodically throughout admission. Patient remains afebrile and WBC trending down as compared to prior recent labs from previous admission. Recheck CBC in AM to monitor blood count trends. Hyperphosphoremia, acute. * Phosphorus elevated at 4.9. Pharmacy notified and will adjust TPN. Will recheck in AM as well as BMP to monitor electrolytes and renal function and continue to monitor trends. Anemia, chronic secondary to chronic disease. * Present on admission with hemoglobin 9.3. Improved from prior admissions. Monitor periodically throughout admission. Moderate protein calorie malnutrition, chronic. * Prealbumin 8.5 on admission. Continue TPN per pharmacy. As patient continues to vomit with large amounts of fluids orally, recommend providing no more than 150cc liquid at a time and encourage slow, small, frequent sips. Encourage boost as able. Hypertension, chronic. * Blood pressures well controlled and borderline low at times. Continue to monitor closely. Diabetes, chronic. * Continue to monitor BGMs, especially in light of TPN. Sliding scale insulin as indicated. Intractable abdominal pain and nausea with draining abdominal wound, chronic. * Pain control per Dr. Woo. Continue Zofran and Phenergan for nausea/ vomiting. Decubitus ulcer, coccyx, chronic. * Wound care team to continue to monitor. Monitor closely for signs of worsening. Continue to encourage patient to do position adjustments frequently , at least Q2 hours. Pancreatic pseudocyst, chronic. * Unsuccessful attempt for endoscopic cyst gastrostomy for drainage on 05/01/17. Metastatic neuroendocrine tumor, s/p resection, chronic. 05/09/2017-I reviewed this chart, the patient history, and the AUTOMATIC OVEN [employer]PERATOR's/PA's documented findings as above. We discussed and formulated the assessment and plan as above with the additions below. I've seen and examined the patient independently.-Dr. Olivier The patient states that she is doing okay. She is having some chronic abdominal pain but it is better this evening. She denies any shortness of breath or chest pain. She denies any current nausea. Christine catheter was removed and at the time that I saw her she had not urinated, but afterward she did have a large incontinence of urine. Bladder scan afterward showed about 150 ML's of urine present. She does not have bowel movements since she is nothing by mouth except for fluids. Vital signs were reviewed. She has a borderline mild tachycardia which on review of [facility] records was present there as well. She has not had any fever. Blood pressure is okay. On exam the patient is mildly drowsy but in no acute distress. Oropharynx is moist. Neck is supple. Chest is clear to auscultation. Cardiovascular reveals a regular rhythm and a borderline tachycardic rate. Abdomen reveals an open abdominal wound with a clear dressing. There is some yellowish drainage. Extremities are free of edema. SCDs are in place. Regarding sepsis, continue current antibiotics. Regarding the patient's recent sepsis likely from abdominal source, will consult Dr. Puente to see the patient on Sunday. We'll continue to monitor white count. Continue TPN for malnutrition. Continue to monitor hemoglobin regarding anemia. Regarding acute kidney injury, the patient was seeing Dr. Massimo Pina at [facility]. Her BUN over the past week was ranging from 59-85. I did discontinue ibuprofen that was started here to prevent worsening of acute kidney injury. We' ll need to monitor renal function and fluid status carefully, especially with Christine catheter out. 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 I did discuss the importance of accurate I&O's as much as is possible with her incontinence We'll monitor vital signs frequently and call parameters were placed We'll continue to monitor lab work fairly frequently. 05/12/2017--Dr. 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 The patient also had a new intra-abdominal fluid collection at that time that was 4.1 x 4.1 x 4.6 cm.-the patient has received 3 weeks of tigecycline. Decision made by Dr. Puente/Dr. Lewis of ID on 05/11 to hold further tigecycline. WBC decreased today. Leukocytosis, improved to 14K today, monitoring. Chronic anemia, Hb 7.7, may need PRBC if continued decline. Elevated BUN-trending down Protein calorie malnutrition-requiring TPN with planned intermediate teacher need, adjusting per pharmacy Hypertension Diabetes? Versus hyperglycemia from TPN--well controlled currently Chronic abdominal pain secondary to open abdominal wound and pancreatic pseudocyst--suspect not absorbing the po meds well, pain not controlled Decubitus ulcer Pancreatic pseudocyst with unsuccessful attempt for endoscopic cyst stress study on 05/01/2017 History of metastatic neuroendocrine tumor, status post resection History of recurrent acute kidney injury secondary to volume depletion from high output abdominal drainage Debility secondary to prolonged illness Plan Severe pain today and not really able to participate with therapy Not likely absorbing the po meds well, unit policy precludes IV narcotics, d/w Dr. Woo and will increase fentanyl patch to 100 mcg and monitor for improvement with that change. Continue TPN, will increase K and discuss with pharmacy re: total volume in the setting of high drain outputs. Hold further saline today unless evidence of volume depletion, overall volume status appears stable although difficult to assess in her. Recheck CBC, renal panel in AM and CMP Sunday. Continue to encourage participation with therapy. 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 The patient also had a new intra-abdominal fluid collection at that time that was 4.1 x 4.1 x 4.6 cm.-the patient has received 3 weeks of tigecycline. Decision made by Dr. Puente/Dr. Lewis of ID on 05/11 to hold further tigecycline. WBC decreased again today. Afebrile Leukocytosis, improved to 12K today, monitoring. Chronic anemia, Hb 7.5, may need PRBC if continued decline. Elevated BUN-trending down daily, no evidence of intravascular depletion, off saline currently Protein calorie malnutrition-requiring TPN with planned intermediate teacher need, adjusting per pharmacy, electrolytes stable today Hypertension per history, recent BP marginal in the 90-100 range systolic Diabetes? Versus hyperglycemia from TPN--well controlled currently Chronic abdominal pain secondary to open abdominal wound and pancreatic pseudocyst--suspect not absorbing the po meds well, pain not controlled Decubitus ulcer Pancreatic pseudocyst with unsuccessful attempt for endoscopic cyst stress study on 05/01/2017 History of metastatic neuroendocrine tumor, status post resection History of recurrent acute kidney injury secondary to volume depletion from high output abdominal drainage, volume status stable currently Debility secondary to prolonged illness Plan Continue with current pain control regimen, will defer any further changes to Dr. Woo, comfortable when resting Not likely absorbing the po meds well but has fentanyl patch, increased to 100 mcg on 05/12, monitor Hold any medications that would drop her blood pressure and monitor for signs of infection Continue TPN per pharmacy Hold further saline today unless evidence of volume depletion, labs and exam stable CBC, CMP in AM Continue to encourage participation with therapy. 05/15/17 Plan Continue with current pain control regimen, will defer any further changes to Dr. Woo, comfortable when resting Cory area of erythema to monitor of evidence of extension. Discussed with OT regarding assessing if there is any irritation or rubbing on the right rivas with patient's leg brace. Will evaluate if more padding as needed. Patient verbalizes this area of her leg is so uncomfortable. She is unable to work with therapy or stand. Regarding increased fever overnight, blood cultures have been drawn and are preliminary negative. Will continue to monitor. Leukocytosis remained stable and is trending down. Continue to monitor hemoglobin as this is slightly decreased, likely secondary to dilution given IV fluids overnight. Continue with wound care. Continue to encourage work with PT and OT for ongoing strengthening Plan- 05/16/17 Erythema of RLE is gone and pain has greatly improved. MRI of the Right ankle was obtained and reveled diffuse osteoporosis with mild subQ edema. Since the erythema has improved will hold off on any antibiotic treatment. She has remained afebrile and WBC count remains stable. Appreciated recommendations by Dr Puente to avoid antibiotics if possible. Appreciate Dr Gayle consultation for further recommendations. Continue with TPN for nutrition. Carefully monitor electrolytes. 05/19/17 Leukocytosis persistent but stable; abx continue to hold. Remains afebrile. BP have remained low but stable; MAP >65 mm Hg. Hgb up to 7.9; thrombocytosis also noted in 05/20/17 Pain remains a major concern of pt. She continues on Fentanyl 100mcg/PRN oxycodone/PRN Morphine BID. Will add TID Gabapentin elixer. Consider adding Cymbalta for pain control and anxiety once we see how she is tolerating gabapentin. Continue TPN, pharmacy following. Continue monitoring labs/accu checks. Consider bladder training to DC christine. Persistent leukocytosis with reactive thrombocytosis- consider repeating CT scan if she becomes febrile. Continue strengthening exercises. 05/21/17 Fever of 101.3 this am. WBC up to 15. BC sent. UA positive with sample from catheter - culture was sent. Will check CXR due to SOA. Platelets up to 510. Dr. Puente is planning on re-evaluating her today. Will check lactate and procalcitonin. ?Repeat CT? Continue pain control; change gabapentin to pill but we may need to revert back to elixer if ineffective. BUN and creatinine are trending up - will give 1L NS. Continue bladder retraining. LFTs increasing - could be related to TPN. 05/22/17 Recurrent fever since 05/21/17. Night doctors gave her a one-time dose of tigecycline after temp increased again to 101. UA and BC show no growth after 1 day. CXR was negative. Swab throat for strep. Discussed with Dr. Puente - CT soft tissue of neck. Continue tigecycline. Hgb decreased to 6.9 - repeat now. May need transfusion. She received a liter of NS yesterday. Will give 1 more liter today. BP has been low to low-normal, which is typical for her. Continue TPN. Monitor for fluid overload since she's getting some extra IVF. 05/23/17-plan Continue to monitor gastric output. It is dark brown in nature. On evaluation of abdominal wound. No evidence of acute bleeding. Will continue to follow routine serum hemoglobin level. She did receive a blood transfusion yesterday. His hemoglobin did dip down to 6.9. Hemoglobin this morning is stable at 9.0. Return of mild hypokalemia. Will give a one-time dose of oral potassium supplementation. Strep throat swab remains negative. Oral nystatin ordered. Urine culture continues to reveal Klebsiella, which has been chronic for her. She continues on Tigecycline IV. May need to discuss this treatment course with Dr Puente. Recheck CBC and BMP tomorrow to follow blood counts, renal function and electrolytes. Continue to encourage work with PT and OT for ongoing strengthening
[2017-05-23] MEDS: INSULIN ASPART SQ PRN (19:05)
[2017-05-23] MEDS: DiphenhydrAMINE 50 MG/ML INJECTION IVP PRN (21:43)
[2017-05-24] MEDS: Oxycodone *IR* 5 MG TABLET PO PRN ×4 (04:47→22:02)
[2017-05-24] MEDS: ONDANSETRON 4 MG/2 ML INJECTION IV PRN (05:16)
[2017-05-24] MEDS: MORPHINE SULFATE 10mg/0.5ml ORAL LIQ SL PRN (08:19)
[2017-05-24] MEDS: ENOXAPARIN 40 MG/0.4 ML INJECTION SQ SCH (08:21)
[2017-05-24] MEDS: MICONAZOLE 2% POWDER 45gm TP SCH ×2 (08:21→21:45)
[2017-05-24] MEDS: NYSTATIN 500,000 units/5 ml ORAL LIQUID PO SCH ×4 (08:21→21:45)
[2017-05-24] MEDS: GABAPENTIN 100 MG CAPSULE PO SCH ×3 (08:21→21:44)
[2017-05-24] MEDS: CETIRIZINE 10 MG TABLET PO SCH (08:22)
[2017-05-24] MEDS: DICLOFENAC 1% TOP GEL 100gm TP SCH ×4 (08:22→21:44)
--- NOTE | 2017-05-24 08:29 | Progress Note ---
Subjective: Laura was still sleeping this morning but awakened easily. She complains of a sore throat and doesn't feel like that's improving. She has been afebrile x over 24 hrs. We discussed her catheter - she's been undergoing retraining for the last few days. She emphatically stated she doesn't want to remove it today, but I informed her that I wrote an order to remove it tomorrow am. Objective Vital signs: Temperature 99.1 F 05/24/17 07:51 Pulse Rate 101 H 05/24/17 07:51 Respiratory Rate 16 05/24/17 07:51 Blood Pressure 106/65 05/24/17 07:51 Pulse Oximetry 94 05/24/17 07:51 Oxygen Delivery Method Room Air Fraction of Inspired Oxygen 21 Height/Weight/BMI: Height 1.57 m Weight 70 kg Body Mass Index 26.2 - Constitutional Present: no acute distress - Routine HEENT Exam ENT: Present: oropharynx clear - Routine Respiratory Exam Present: CTA bilaterally - Routine Cardiovascular Exam Present: S1, S2 - Routine Abdominal Exam Comments: dressing over abdomen - yellow and brown drainage noted - Routine Extremities Exam Present: pulses intact, normal capillary refill - Routine Skin Exam Present: intact, dry - Routine Neurological Exam Present: alert, oriented X3 - Routine Psychiatric Exam Present: normal affect, normal thought process Results - Labs CBC & Chem 7: 05/24/17 04:38 05/24/17 04:38 Microbiology Results: Microbiology 05/22/17 10:27 Throat Group A Streptococcus Culture - Final No Group A Strep Isolated 05/21/17 05:09 Peripheral/Iv Start Blood Culture - Preliminary No Growth After 3 Days 05/21/17 05:10 Peripheral/Iv Start Blood Culture - Preliminary No Growth After 3 Days 05/21/17 05:01 Urine, Voided (Cc/notcc) Urine Culture - Final Klebsiella pneumoniae 05/14/17 22:43 Cath/Port/Line/Picc Blood Culture - Final No Growth After 5 Days 05/14/17 22:46 Cath/Port/Line/Picc Blood Culture - Final No Growth After 5 Days Assessment and Plan (1) Open abdominal wall wound Current visit: Yes Status: Chronic (2) Myopathy Problem details: Critical illness myopathy Current visit: Yes Status: Acute Resuscitation Status: Full Code Assessment and Plan: Assessment Generalized debility and myopathy secondary to prolonged illness and hospitalizations. Recent sepsis secondary to E. faecalis CLABSI and recurrent peritonitis due to enteric leak. Klebsiella UTI - started Tygacil 05/21/17. Urinary retention - repeated need for Christine Leukocytosis, persistent. Thrombocytosis 05/19 Elevated BUN - improving. Hx of recurrent UTI from volume depletion. RLE - erythema - improved TPN use with intermittent electrolyte imbalances. LFT elevation, possibly from TPN Anemia of chronic disease. S/P PRBC transfusion. Moderate protein calorie malnutrition. Hypertension - blood pressures are frequently low-normal. Diabetes vs TPN-induced hyperglycemia. 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 Luu/Dr. Omar Brown) Decubitus ulcer, coccyx. Wound care consulted. Pancreatic pseudocyst, chronic. Unsuccessful attempt for endoscopic cyst gastrostomy for drainage on 05/01/17. Metastatic neuroendocrine tumor, s/p resection, chronic. 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 Puente. Complete 7-day course of Tygacil ( through 05/27/17). Remove Christine tomorrow am and monitor PVR. Hgb stable at 8.7 s/p PRBC transfusion on 05/22/17. Hypokalemia - K up to 3.8. Continue Nystatin for possible thrush. Repeat CBC and BMP in am. Sepsis Assessment - Evaluation Sepsis screening result: No Definite Risk Hospital Course Summary Disclaimer: The visit summary below is not to be considered part of the above Progress Note. Hospital Course: 05/09/17 10:24 Impression: Generalized debility and myopathy secondary to prolonged hospitalizations, acute. * Continue to encourage participation in therapies as patient's goal is to return home with the ability to dress self and ambulate short distances. Therapy reports that she has been doing well and was able to walk 6 steps yesterday. Continue to provide safe and supportive environment. Recent sepsis secondary to E. faecalis CLABSI and recurrent peritonitis due to enteric leak, acute. * Continue tigecycline per Dr. Lewis, to be completed on 05/19. Will discontinue Christine catheter today. Will provide a commode initially to encourage successful toileting until patient strength and endurance improved. Leukocytosis, persistent, present on admission. * WBC on admission 14.4. Continue to monitor trends periodically throughout admission. Patient remains afebrile and WBC trending down as compared to prior recent labs from previous admission. Recheck CBC in AM to monitor blood count trends. Hyperphosphoremia, acute. * Phosphorus elevated at 4.9. Pharmacy notified and will adjust TPN. Will recheck in AM as well as BMP to monitor electrolytes and renal function and continue to monitor trends. Anemia, chronic secondary to chronic disease. * Present on admission with hemoglobin 9.3. Improved from prior admissions. Monitor periodically throughout admission. Moderate protein calorie malnutrition, chronic. * Prealbumin 8.5 on admission. Continue TPN per pharmacy. As patient continues to vomit with large amounts of fluids orally, recommend providing no more than 150cc liquid at a time and encourage slow, small, frequent sips. Encourage boost as able. Hypertension, chronic. * Blood pressures well controlled and borderline low at times. Continue to monitor closely. Diabetes, chronic. * Continue to monitor BGMs, especially in light of TPN. Sliding scale insulin as indicated. Intractable abdominal pain and nausea with draining abdominal wound, chronic. * Pain control per Dr. Woo. Continue Zofran and Phenergan for nausea/ vomiting. Decubitus ulcer, coccyx, chronic. * Wound care team to continue to monitor. Monitor closely for signs of worsening. Continue to encourage patient to do position adjustments frequently , at least Q2 hours. Pancreatic pseudocyst, chronic. * Unsuccessful attempt for endoscopic cyst gastrostomy for drainage on 05/01/17. Metastatic neuroendocrine tumor, s/p resection, chronic. 05/09/2017-I reviewed this chart, the patient history, and the MANAGER SOFTWARE's/PA's documented findings as above. We discussed and formulated the assessment and plan as above with the additions below. I've seen and examined the patient independently.-Dr. Olivier The patient states that she is doing okay. She is having some chronic abdominal pain but it is better this evening. She denies any shortness of breath or chest pain. She denies any current nausea. Christine catheter was removed and at the time that I saw her she had not urinated, but afterward she did have a large incontinence of urine. Bladder scan afterward showed about 150 ML's of urine present. She does not have bowel movements since she is nothing by mouth except for fluids. Vital signs were reviewed. She has a borderline mild tachycardia which on review of [facility] records was present there as well. She has not had any fever. Blood pressure is okay. On exam the patient is mildly drowsy but in no acute distress. Oropharynx is moist. Neck is supple. Chest is clear to auscultation. Cardiovascular reveals a regular rhythm and a borderline tachycardic rate. Abdomen reveals an open abdominal wound with a clear dressing. There is some yellowish drainage. Extremities are free of edema. SCDs are in place. Regarding sepsis, continue current antibiotics. Regarding the patient's recent sepsis likely from abdominal source, will consult Dr. Puente to see the patient on Sunday. We'll continue to monitor white count. Continue TPN for malnutrition. Continue to monitor hemoglobin regarding anemia. Regarding acute kidney injury, the patient was seeing Dr. Massimo Pina at via [facility]. Her BUN over the past week was ranging from 59-85. I did discontinue ibuprofen that was started here to prevent worsening of acute kidney injury. We' ll need to monitor renal function and fluid status carefully, especially with Christine catheter out. 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 I did discuss the importance of accurate I&O's as much as is possible with her incontinence We'll monitor vital signs frequently and call parameters were placed We'll continue to monitor lab work fairly frequently. 05/12/2017--Dr. 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 The patient also had a new intra-abdominal fluid collection at that time that was 4.1 x 4.1 x 4.6 cm.-the patient has received 3 weeks of tigecycline. Decision made by Dr. Puente/Dr. Lewis of ID on 05/11 to hold further tigecycline. WBC decreased today. Leukocytosis, improved to 14K today, monitoring. Chronic anemia, Hb 7.7, may need PRBC if continued decline. Elevated BUN-trending down Protein calorie malnutrition-requiring TPN with planned senior care need, adjusting per pharmacy Hypertension Diabetes? Versus hyperglycemia from TPN--well controlled currently Chronic abdominal pain secondary to open abdominal wound and pancreatic pseudocyst--suspect not absorbing the po meds well, pain not controlled Decubitus ulcer Pancreatic pseudocyst with unsuccessful attempt for endoscopic cyst stress study on 05/01/2017 History of metastatic neuroendocrine tumor, status post resection History of recurrent acute kidney injury secondary to volume depletion from high output abdominal drainage Debility secondary to prolonged illness Plan Severe pain today and not really able to participate with therapy Not likely absorbing the po meds well, unit policy precludes IV narcotics, d/w Dr. Woo and will increase fentanyl patch to 100 mcg and monitor for improvement with that change. Continue TPN, will increase K and discuss with pharmacy re: total volume in the setting of high drain outputs. Hold further saline today unless evidence of volume depletion, overall volume status appears stable although difficult to assess in her. Recheck CBC, renal panel in AM and CMP Sunday. Continue to encourage participation with therapy. 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 The patient also had a new intra-abdominal fluid collection at that time that was 4.1 x 4.1 x 4.6 cm.-the patient has received 3 weeks of tigecycline. Decision made by Dr. Puente/Dr. Lewis of ID on 05/11 to hold further tigecycline. WBC decreased again today. Afebrile Leukocytosis, improved to 12K today, monitoring. Chronic anemia, Hb 7.5, may need PRBC if continued decline. Elevated BUN-trending down daily, no evidence of intravascular depletion, off saline currently Protein calorie malnutrition-requiring TPN with planned roasterman need, adjusting per pharmacy, electrolytes stable today Hypertension per history, recent BP marginal in the 90-100 range systolic Diabetes? Versus hyperglycemia from TPN--well controlled currently Chronic abdominal pain secondary to open abdominal wound and pancreatic pseudocyst--suspect not absorbing the po meds well, pain not controlled Decubitus ulcer Pancreatic pseudocyst with unsuccessful attempt for endoscopic cyst stress study on 05/01/2017 History of metastatic neuroendocrine tumor, status post resection History of recurrent acute kidney injury secondary to volume depletion from high output abdominal drainage, volume status stable currently Debility secondary to prolonged illness Plan Continue with current pain control regimen, will defer any further changes to Dr. Woo, comfortable when resting Not likely absorbing the po meds well but has fentanyl patch, increased to 100 mcg on 05/12, monitor Hold any medications that would drop her blood pressure and monitor for signs of infection Continue TPN per pharmacy Hold further saline today unless evidence of volume depletion, labs and exam stable CBC, CMP in AM Continue to encourage participation with therapy. 05/15/17 Plan Continue with current pain control regimen, will defer any further changes to Dr. Woo, comfortable when resting Cory area of erythema to monitor of evidence of extension. Discussed with OT regarding assessing if there is any irritation or rubbing on the right rivas with patient's leg brace. Will evaluate if more padding as needed. Patient verbalizes this area of her leg is so uncomfortable. She is unable to work with therapy or stand. Regarding increased fever overnight, blood cultures have been drawn and are preliminary negative. Will continue to monitor. Leukocytosis remained stable and is trending down. Continue to monitor hemoglobin as this is slightly decreased, likely secondary to dilution given IV fluids overnight. Continue with wound care. Continue to encourage work with PT and OT for ongoing strengthening Plan- 05/16/17 Erythema of RLE is gone and pain has greatly improved. MRI of the Right ankle was obtained and reveled diffuse osteoporosis with mild subQ edema. Since the erythema has improved will hold off on any antibiotic treatment. She has remained afebrile and WBC count remains stable. Appreciated recommendations by Dr Puente to avoid antibiotics if possible. Appreciate Dr Gayle consultation for further recommendations. Continue with TPN for nutrition. Carefully monitor electrolytes. 05/19/17 Leukocytosis persistent but stable; abx continue to hold. Remains afebrile. BP have remained low but stable; MAP >65 mm Hg. Hgb up to 7.9; thrombocytosis also noted in 05/20/17 Pain remains a major concern of pt. She continues on Fentanyl 100mcg/PRN oxycodone/PRN Morphine BID. Will add TID Gabapentin elixer. Consider adding Cymbalta for pain control and anxiety once we see how she is tolerating gabapentin. Continue TPN, pharmacy following. Continue monitoring labs/accu checks. Consider bladder training to DC christine. Persistent leukocytosis with reactive thrombocytosis- consider repeating CT scan if she becomes febrile. Continue strengthening exercises. 05/21/17 Fever of 101.3 this am. WBC up to 15. BC sent. UA positive with sample from catheter - culture was sent. Will check CXR due to SOA. Platelets up to 510. Dr. Puente is planning on re-evaluating her today. Will check lactate and procalcitonin. ?Repeat CT? Continue pain control; change gabapentin to pill but we may need to revert back to elixer if ineffective. BUN and creatinine are trending up - will give 1L NS. Continue bladder retraining. LFTs increasing - could be related to TPN. 05/22/17 Recurrent fever since 05/21/17. Night doctors gave her a one-time dose of tigecycline after temp increased again to 101. UA and BC show no growth after 1 day. CXR was negative. Swab throat for strep. Discussed with Dr. Puente - CT soft tissue of neck. Continue tigecycline. Hgb decreased to 6.9 - repeat now. May need transfusion. She received a liter of NS yesterday. Will give 1 more liter today. BP has been low to low-normal, which is typical for her. Continue TPN. Monitor for fluid overload since she's getting some extra IVF. 05/23/17-plan Continue to monitor gastric output. It is dark brown in nature. On evaluation of abdominal wound. No evidence of acute bleeding. Will continue to follow routine serum hemoglobin level. She did receive a blood transfusion yesterday. His hemoglobin did dip down to 6.9. Hemoglobin this morning is stable at 9.0. Return of mild hypokalemia. Will give a one-time dose of oral potassium supplementation. Strep throat swab remains negative. Oral nystatin ordered. Urine culture continues to reveal Klebsiella, which has been chronic for her. She continues on Tigecycline IV. 05/24/17 Klebsiella UTI - discussed with Dr. Puente. Complete 7-day course of Tygacil ( through 05/27/17). Remove Christine tomorrow am and monitor PVR. Hgb stable at 8.7 s/p PRBC transfusion on 05/22/17. Hypokalemia - K up to 3.8.
--- NOTE | 2017-05-24 09:59 | Pharmacy Consult-TPN/PPN ---
Pharmacy Consult-TPN/PPN - Laboratory Information Chemistry Turbidity < 20 (0-20) 05/24/17 04:38 Sodium 138 MEQ/L (134-144) 05/24/17 04:38 Potassium 3.8 MEQ/L (3.6-5) 05/24/17 04:38 Chloride 100 MEQ/L (98-107) 05/24/17 04:38 Carbon Dioxide 32 MEQ/L (22-30) H 05/24/17 04:38 Anion Gap 6 MEQ/L (5-15) 05/24/17 04:38 BUN 37.0 MG/DL (7-17) H 05/24/17 04:38 Creatinine 1.0 MG/DL (0.7-1.2) 05/24/17 04:38 GFR Calculation 61 05/24/17 04:38 BUN/Creatinine Ratio 37 RATIO (6-26) H 05/24/17 04:38 Glucose 93 MG/DL (65-110) 05/24/17 04:38 Glucometer 123 mg/dL (65-110) 05/24/17 06:13 Calculated Osmolality 275 MOSM/KG (261-280) 05/24/17 04:38 Uric Acid 3.6 MG/DL (2.5-7.5) 05/15/17 01:01 Calcium 8.0 MG/DL (8.4-10.2) L 05/24/17 04:38 Phosphorus 4.2 MG/DL (2.5-4.5) 05/22/17 05:01 Magnesium 2.1 MG/DL (1.6-2.3) 05/22/17 05:01 Total Bilirubin 0.90 MG/DL (0.20-1.30) 05/24/17 04:38 Icterus Index < 2 (0-7) 05/24/17 04:38 AST 45 U/L (14-36) H 05/24/17 04:38 ALT 44 U/L (9-52) 05/24/17 04:38 Alkaline Phosphatase 409 U/L (38-126) H 05/24/17 04:38 Total Protein 5.6 G/DL (6.3-8.2) L 05/24/17 04:38 Albumin 2.0 G/DL (3.5-5.0) L 05/24/17 04:38 Globulin 3.6 G/DL (2.4-3.6) 05/24/17 04:38 Albumin/Globulin Ratio 0.6 RATIO (1.1-2.2) L 05/24/17 04:38 Prealbumin 6.9 MG/DL (17.6-36.0) L 05/17/17 05:01 Plasma Lactate 2.6 MMOL/L (0.6-2.2) H 05/21/17 15:04 Procalcitonin 0.93 NG/ML 05/23/17 04:59 Specimen Hemolysis < 15 (0-25) 05/24/17 04:38 Intake and Output 05/23/17 05/24/17 05/25/17 06:59 06:59 06:59 Intake Total 2924.5 / 2924.5 1050 / 1050 120 / 120 Output Total 3300 / 3300 3800 / 3800 Balance -375.5 / -375.5 -2750 / -2750 120 / 120 Intake: IV 2117.5 / 2117.5 300 / 300 Intralipid 20% 100 ml @ 100 / 100 100 / 100 50 mls/hr IV 1600 SEAN Rx# :[id number] Sodium Chloride Conc 4 1817.5 / 1817.5 Meq/ml Sodium Acetate 80 Meq KCl 20 Meq K Phos Inj 20 Meq Magnesium Sulfate Inj 16 Meq Calcium Gluconate 9.3 Meq Infuvite Adult 10 ml Multi-Trace Elements 1 ml Folate 2 mg Vitamin B-1 100 mg Potassium Acetate Inj 40 Meq/20 ml In TPN - Custom Formula 2,000 ml @ 75 mls/hr IV .Q24H SEAN Rx#:[id number] Tygacil 50 mg In Normal 200 / 200 200 / 200 Saline 100 ml @ 100 mls/ hr IV BID SEAN Rx#: [id number] Oral 807 / 807 750 / 750 120 / 120 Output: Stool 2000 / 2000 2400 / 2400 Emesis 200 / 200 Urine Amount (Catheter) 1300 / 1300 1200 / 1200 Other: Urine Appearance Clear Cloudy Urine Color Yellow Dark Miranda Stool Color Brown Brown Green Green Stool Consistency Liquid Liquid Emesis Description Bile Retching # Unmeasured Emesis 1 Episodes DAY 18 OF TPN THERAPY: Receiving a CUSTOM TPN FORMULA via PICC line. Today's electrolytes are trending into normal levels. Will continue the same formula as yesterday. Receiving the TPN at 75ml/hr. Also receiving Fat Emulsion 20% 100ml, one bag daily to prevent EFAD and add calories. This gives approximately 1730 kcal per day. Blood sugars stable. Has Low Correctional Dose of Insulin, and receives it occassionly to keep sugars WNL's. Thank you.
[2017-05-24] MEDS: TIGECYCLINE 50 MG in NS 100 ML IV SCH ×2 (10:21→21:31)
[2017-05-24] MEDS ORDERED: FALL RISK - PHARMACY CONSULT MC PRN (10:42)
[2017-05-24] MEDS: ONDANSETRON ODT 4 MG TABLET PO PRN (11:22)
--- NOTE | 2017-05-24 13:38 | IRU Progress Note ---
- Subjective/Serverity of Illness No real change. Throat still sore but she had not asked for the chloroseptic spray. Will have her ask for this to see if it will help Exam Vital Signs: Temperature 99.6 F 05/24/17 11:00 Pulse Rate 108 H 05/24/17 11:00 Respiratory Rate 20 05/24/17 11:00 Blood Pressure 103/58 05/24/17 11:00 Pulse Oximetry 90 05/24/17 11:00 Oxygen Delivery Method Room Air Fraction of Inspired Oxygen 21 Height/Weight/BMI: Height 1.57 m Weight 70 kg Body Mass Index 26.2 - Constitutional Present: mild distress Sepsis Assessment - Evaluation Sepsis screening result: No Definite Risk IRU A/P DVT Prophylaxis: Lovenox Resuscitation Status: Full Code - Course Hospital Course: Yevgeniy Woo MD: 05/08/17 10:09 Initiating physical therapy and occupational therapy. Patient is cooperative this morning. Complains of chronic abdominal pain. Limiting oral intake in an effort to reduce leakage from the wound and allow patient to participate in therapy. She would like to increase the restriction from 120 up to 150 ML per hour. This will be allowed. This is excluding intake at mealtime. We will leave a cup at her bedside and I asked her to simply sip on this and not take it all at once. She agreed to do this. White count 14,000 but without evidence of active infection. She remains afebrile. Pain management is with patches and oral agents only. 05/09/17 11:50 Continues to require significant encouragement to participate with therapy. Walked 6 ft. Abd pain is remaining as ongoing pain issue. Protein calorie malnutrition addressed with TPN. 05/10/17 11:19 She is making slow progress. White count improved to 13,000. Appreciate hospitalists assistance. Lower extremity dressing is improved. Walking distance improved. Transfers minimally improved. Significant concerns about patient motivation and safety awareness remains. Abdominal pain, nausea and vomiting impact her therapy progress. 05/14/17 10:48 Has multiple medical problems. Making very slow progress. Frequently refuses therapy or at least postpones it. Requires much encouragement to participate. Increased fentanyl patch in an effort to improve her pain management. Continues on TPN. White count improved to 12,000. 05/15/17 10:39 Continues to be very complex. Had poor urine output but responded to fluid bolus. Requires total assistance for many ADLs. Increase fentanyl patch 2-3 days ago. Hopefully that will provide additional pain improvement. White count is improved. Hemoglobin down at 7.1. Does have right ankle pain now which impedes her progress. 05/16/17 10:54 Continues on TPN. Hemoglobin improved at 7.6. White count remains relatively low for her at 11,000. Right ankle pain appears to virtually have resolved. MRI shows disuse osteoporosis only. No evidence of active infection nor inflammation. Seems to have a better attitude today. We will continue current pain management although we did discuss the possibility of oral morphine yesterday. If we do that she will probably be able to tolerate the morphine concentrate and a sublingual or a lingual route. However we will hold off for the time being. Continues to require close medical management of multiple medical conditions. 05/18/17 09:56 Appreciate assistance of infectious disease and hospitalist service. Low-grade fever of 99 but stable white count at 12,000. No evidence of infection and ID recommends no antibiotics at present. Continues to require a lot of encouragement for therapies but is slowly improving. She indicated she does want to get back home. She would like to eat more and again we recommended no advance in her diet due to recurrent nausea and vomiting. She requires close medical management for multiple medical conditions. - Interventions to Obtain Goals PT Treatment Plan: Balance/Proprioception, Functional Activities, Gait Training , Patient/Family Education, Therapeutic Exercise OT Treatment Plan: ADL (Basic Care), Balance Training, Pt./Family Education, UE Functional Training
--- NOTE | 2017-05-24 16:29 | Wound Care Progress Note ---
Wound Center Progress Note: pt seen today, pouching system changed. Periwound skin intact and w/o redness, Pt tolerated well. Encouraged pt to observe via a mirror, pt refused states "I will the next time". Intermitent suction at 20mm.
[2017-05-24] MEDS: FAT EMULSION 20% 100 ML IV SCH (17:54)
[2017-05-24] MEDS: POTASSIUM CHLORIDE IV SCH (17:55)
[2017-05-24] MEDS: SODIUM CHLORIDE IV SCH (17:55)
[2017-05-24] MEDS: [UNRECOGNIZED DRUG - OTHER] IV SCH (17:55)
[2017-05-24] MEDS: SODIUM ACETATE IV SCH (17:55)
[2017-05-24] MEDS: PROMETHAZINE 25 MG INJECTION IVP PRN (22:01)
[2017-05-24] MEDS: DiphenhydrAMINE 50 MG/ML INJECTION IVP PRN (22:01)
--- NOTE | 2017-05-25 08:17 | Pharmacy Consult-TPN/PPN ---
Pharmacy Consult-TPN/PPN - Laboratory Information Chemistry Turbidity < 20 (0-20) 05/25/17 04:46 Sodium 138 MEQ/L (134-144) 05/25/17 04:46 Potassium 4.2 MEQ/L (3.6-5) 05/25/17 04:46 Chloride 102 MEQ/L (98-107) 05/25/17 04:46 Carbon Dioxide 32 MEQ/L (22-30) H 05/25/17 04:46 Anion Gap 4 MEQ/L (5-15) L 05/25/17 04:46 BUN 40.0 MG/DL (7-17) H 05/25/17 04:46 Creatinine 0.9 MG/DL (0.7-1.2) 05/25/17 04:46 GFR Calculation 69 05/25/17 04:46 BUN/Creatinine Ratio 44 RATIO (6-26) H 05/25/17 04:46 Glucose 93 MG/DL (65-110) 05/25/17 04:46 Glucometer 131 mg/dL (65-110) 05/24/17 21:20 Calculated Osmolality 276 MOSM/KG (261-280) 05/25/17 04:46 Uric Acid 3.6 MG/DL (2.5-7.5) 05/15/17 01:01 Calcium 7.9 MG/DL (8.4-10.2) L 05/25/17 04:46 Phosphorus 4.1 MG/DL (2.5-4.5) 05/25/17 04:46 Magnesium 2.1 MG/DL (1.6-2.3) 05/25/17 04:46 Total Bilirubin 0.90 MG/DL (0.20-1.30) 05/24/17 04:38 Icterus Index < 2 (0-7) 05/25/17 04:46 AST 45 U/L (14-36) H 05/24/17 04:38 ALT 44 U/L (9-52) 05/24/17 04:38 Alkaline Phosphatase 409 U/L (38-126) H 05/24/17 04:38 Total Protein 5.6 G/DL (6.3-8.2) L 05/24/17 04:38 Albumin 2.0 G/DL (3.5-5.0) L 05/24/17 04:38 Globulin 3.6 G/DL (2.4-3.6) 05/24/17 04:38 Albumin/Globulin Ratio 0.6 RATIO (1.1-2.2) L 05/24/17 04:38 Prealbumin 6.9 MG/DL (17.6-36.0) L 05/17/17 05:01 Plasma Lactate 2.6 MMOL/L (0.6-2.2) H 05/21/17 15:04 Procalcitonin 0.93 NG/ML 05/23/17 04:59 Specimen Hemolysis < 15 (0-25) 05/25/17 04:46 Intake and Output 05/24/17 05/25/17 05/26/17 06:59 06:59 06:59 Intake Total 1050 / 1050 2682.5 / 2682.5 120 / 120 Output Total 3800 / 3800 1525 / 1525 Balance -2750 / -2750 1157.5 / 1157.5 120 / 120 Intake: IV 300 / 300 1992.5 / 1991.5 Intralipid 20% 100 ml @ 100 / 100 50 mls/hr IV 1600 SEAN Rx# :[id number] Sodium Chloride Conc 4 1892.5 / 1892.5 Meq/ml Sodium Acetate 60 Meq KCl 80 Meq K Phos Inj 20 Meq Magnesium Sulfate Inj 16 Meq Calcium Gluconate 9.3 Meq Infuvite Adult 10 ml Multi-Trace Elements 1 ml Folate 2 mg Vitamin B-1 100 mg Potassium Acetate Inj 40 Meq/20 ml In TPN - Custom Formula 2,000 ml @ 75 mls/hr IV .Q24H SEAN Rx#:[id number] Tygacil 50 mg In Normal 200 / 200 100 / 100 Saline 100 ml @ 100 mls/ hr IV BID SEAN Rx#: [id number] Oral 750 / 750 690 / 690 120 / 120 Output: Stool 2400 / 2400 1150 / 1150 Emesis 200 / 200 75 / 75 Urine Amount (Catheter) 1200 / 1200 300 / 300 Other: Urine Appearance Cloudy Cloudy Urine Color Dark Miranda Light Miranda Urine Odor Sweet Stool Color Brown Brown Green Green Stool Consistency Liquid Liquid Emesis Description Bile Bile Retching # Unmeasured Emesis 1 Episodes - Consult Information Continue current formula at 75 mls/hr. Thank you.
--- NOTE | 2017-05-25 08:18 | IRU Progress Note ---
- Subjective/Serverity of Illness Patient still has sore throat. The Chloraseptic spray to her. She has had thrush in the past, but says this does not feel like that. For now we will just observe this. Throat culture for strep was negative. Exam Vital Signs: Temperature 99.9 F 05/25/17 08:11 Pulse Rate 108 H 05/25/17 08:11 Respiratory Rate 16 05/25/17 08:11 Blood Pressure 98/64 05/25/17 08:11 Pulse Oximetry 94 05/25/17 08:11 Oxygen Delivery Method Room Air Fraction of Inspired Oxygen 21 Height/Weight/BMI: Height 1.57 m Weight 70 kg Body Mass Index 26.2 - Routine HEENT Exam ENT: Present: mucous membranes moist, oropharynx clear Comments: No redness in throat Sepsis Assessment - Evaluation Sepsis screening result: No Definite Risk IRU A/P DVT Prophylaxis: Lovenox Resuscitation Status: Full Code - Course Hospital Course: Yevgeniy Woo MD: 05/08/17 10:09 Initiating physical therapy and occupational therapy. Patient is cooperative this morning. Complains of chronic abdominal pain. Limiting oral intake in an effort to reduce leakage from the wound and allow patient to participate in therapy. She would like to increase the restriction from 120 up to 150 ML per hour. This will be allowed. This is excluding intake at mealtime. We will leave a cup at her bedside and I asked her to simply sip on this and not take it all at once. She agreed to do this. White count 14,000 but without evidence of active infection. She remains afebrile. Pain management is with patches and oral agents only. 05/09/17 11:50 Continues to require significant encouragement to participate with therapy. Walked 6 ft. Abd pain is remaining as ongoing pain issue. Protein calorie malnutrition addressed with TPN. 05/10/17 11:19 She is making slow progress. White count improved to 13,000. Appreciate hospitalists assistance. Lower extremity dressing is improved. Walking distance improved. Transfers minimally improved. Significant concerns about patient motivation and safety awareness remains. Abdominal pain, nausea and vomiting impact her therapy progress. 05/14/17 10:48 Has multiple medical problems. Making very slow progress. Frequently refuses therapy or at least postpones it. Requires much encouragement to participate. Increased fentanyl patch in an effort to improve her pain management. Continues on TPN. White count improved to 12,000. 05/15/17 10:39 Continues to be very complex. Had poor urine output but responded to fluid bolus. Requires total assistance for many ADLs. Increase fentanyl patch 2-3 days ago. Hopefully that will provide additional pain improvement. White count is improved. Hemoglobin down at 7.1. Does have right ankle pain now which impedes her progress. 05/16/17 10:54 Continues on TPN. Hemoglobin improved at 7.6. White count remains relatively low for her at 11,000. Right ankle pain appears to virtually have resolved. MRI shows disuse osteoporosis only. No evidence of active infection nor inflammation. Seems to have a better attitude today. We will continue current pain management although we did discuss the possibility of oral morphine yesterday. If we do that she will probably be able to tolerate the morphine concentrate and a sublingual or a lingual route. However we will hold off for the time being. Continues to require close medical management of multiple medical conditions. 05/18/17 09:56 Appreciate assistance of infectious disease and hospitalist service. Low-grade fever of 99 but stable white count at 12,000. No evidence of infection and ID recommends no antibiotics at present. Continues to require a lot of encouragement for therapies but is slowly improving. She indicated she does want to get back home. She would like to eat more and again we recommended no advance in her diet due to recurrent nausea and vomiting. She requires close medical management for multiple medical conditions. - Interventions to Obtain Goals PT Treatment Plan: Balance/Proprioception, Functional Activities, Gait Training , Patient/Family Education, Therapeutic Exercise OT Treatment Plan: ADL (Basic Care), Balance Training, Pt./Family Education, UE Functional Training
[2017-05-25] MEDS: ONDANSETRON 4 MG/2 ML INJECTION IV PRN ×2 (08:24→15:47)
[2017-05-25] MEDS: Oxycodone *IR* 5 MG TABLET PO PRN ×3 (08:24→20:57)
[2017-05-25] MEDS: PROMETHAZINE 25 MG INJECTION IVP PRN ×2 (09:37→20:59)
[2017-05-25] MEDS: TIGECYCLINE 50 MG in NS 100 ML IV SCH ×2 (09:44→21:01)
[2017-05-25] MEDS: ENOXAPARIN 40 MG/0.4 ML INJECTION SQ SCH (09:46)
[2017-05-25] MEDS: GABAPENTIN 100 MG CAPSULE PO SCH ×3 (09:47→20:58)
[2017-05-25] MEDS: CETIRIZINE 10 MG TABLET PO SCH (09:47)
[2017-05-25] MEDS: DICLOFENAC 1% TOP GEL 100gm TP SCH ×3 (09:51→20:36)
[2017-05-25] MEDS: NYSTATIN 500,000 units/5 ml ORAL LIQUID PO SCH ×4 (10:05→20:57)
[2017-05-25] MEDS: MICONAZOLE 2% POWDER 45gm TP SCH ×2 (10:05→20:57)
[2017-05-25] MEDS: MORPHINE SULFATE 10mg/0.5ml ORAL LIQ SL PRN (11:27)
[2017-05-25] MEDS: SODIUM CHLORIDE IV SCH (15:47)
[2017-05-25] MEDS: POTASSIUM CHLORIDE IV SCH (15:47)
[2017-05-25] MEDS: [UNRECOGNIZED DRUG - OTHER] IV SCH (15:47)
[2017-05-25] MEDS: SODIUM ACETATE IV SCH (15:47)
[2017-05-25] MEDS: FAT EMULSION 20% 100 ML IV SCH (15:47)
[2017-05-25] MEDS: DiphenhydrAMINE 50 MG/ML INJECTION IVP PRN (21:00)
[2017-05-26] MEDS: DICLOFENAC 1% TOP GEL 100gm TP SCH ×5 (00:19→20:02)
[2017-05-26] MEDS: PROMETHAZINE 25 MG INJECTION IVP PRN ×4 (01:58→20:29)
[2017-05-26] MEDS: Oxycodone *IR* 5 MG TABLET PO PRN ×5 (01:58→20:31)
[2017-05-26] MEDS: INSULIN ASPART SQ PRN ×2 (05:48→17:32)
--- NOTE | 2017-05-26 08:26 | Pharmacy Consult-TPN/PPN ---
Pharmacy Consult-TPN/PPN - Laboratory Information Chemistry Turbidity < 20 (0-20) 05/25/17 04:46 Sodium 138 MEQ/L (134-144) 05/25/17 04:46 Potassium 4.2 MEQ/L (3.6-5) 05/25/17 04:46 Chloride 102 MEQ/L (98-107) 05/25/17 04:46 Carbon Dioxide 32 MEQ/L (22-30) H 05/25/17 04:46 Anion Gap 4 MEQ/L (5-15) L 05/25/17 04:46 BUN 40.0 MG/DL (7-17) H 05/25/17 04:46 Creatinine 0.9 MG/DL (0.7-1.2) 05/25/17 04:46 GFR Calculation 69 05/25/17 04:46 BUN/Creatinine Ratio 44 RATIO (6-26) H 05/25/17 04:46 Glucose 93 MG/DL (65-110) 05/25/17 04:46 Glucometer 158 mg/dL (65-110) 05/26/17 05:40 Calculated Osmolality 276 MOSM/KG (261-280) 05/25/17 04:46 Uric Acid 3.6 MG/DL (2.5-7.5) 05/15/17 01:01 Calcium 7.9 MG/DL (8.4-10.2) L 05/25/17 04:46 Phosphorus 4.1 MG/DL (2.5-4.5) 05/25/17 04:46 Magnesium 2.1 MG/DL (1.6-2.3) 05/25/17 04:46 Total Bilirubin 0.90 MG/DL (0.20-1.30) 05/24/17 04:38 Icterus Index < 2 (0-7) 05/25/17 04:46 AST 45 U/L (14-36) H 05/24/17 04:38 ALT 44 U/L (9-52) 05/24/17 04:38 Alkaline Phosphatase 409 U/L (38-126) H 05/24/17 04:38 Total Protein 5.6 G/DL (6.3-8.2) L 05/24/17 04:38 Albumin 2.0 G/DL (3.5-5.0) L 05/24/17 04:38 Globulin 3.6 G/DL (2.4-3.6) 05/24/17 04:38 Albumin/Globulin Ratio 0.6 RATIO (1.1-2.2) L 05/24/17 04:38 Prealbumin 6.9 MG/DL (17.6-36.0) L 05/17/17 05:01 Plasma Lactate 2.6 MMOL/L (0.6-2.2) H 05/21/17 15:04 Procalcitonin 0.93 NG/ML 05/23/17 04:59 Specimen Hemolysis < 15 (0-25) 05/25/17 04:46 Intake and Output 05/25/17 05/26/17 05/27/17 06:59 06:59 06:59 Intake Total 2882.5 / 2882.5 2610 / 2610 Output Total 1525 / 1525 1200 / 1200 Balance 1357.5 / 1357.5 1410 / 1410 Weight 70.5 kg Intake: IV 2192.5 / 2192.5 1940 / 1940 Intralipid 20% 100 ml @ 100 / 100 100 / 100 50 mls/hr IV 1600 SEAN Rx# :[id number] Sodium Chloride Conc 4 1892.5 / 1892.5 1640 / 1640 Meq/ml Sodium Acetate 60 Meq KCl 80 Meq K Phos Inj 20 Meq Magnesium Sulfate Inj 16 Meq Calcium Gluconate 9.3 Meq Infuvite Adult 10 ml Multi-Trace Elements 1 ml Folate 2 mg Vitamin B-1 100 mg Potassium Acetate Inj 40 Meq/20 ml In TPN - Custom Formula 2,000 ml @ 75 mls/hr IV .Q24H SEAN Rx#:[id number] Tygacil 50 mg In Normal 200 / 200 200 / 200 Saline 100 ml @ 100 mls/ hr IV BID SEAN Rx#: [id number] Oral 690 / 690 670 / 670 Output: Urine 75 / 75 Stool 1150 / 1150 950 / 950 Emesis 75 / 75 Urine Amount (Catheter) 300 / 300 175 / 175 Other: Urine Appearance Cloudy Cloudy Sediment Urine Color Light Miranda Light Miranda Urine Odor Sweet Normal Stool Color Brown Brown Green Green Stool Consistency Liquid Liquid Emesis Description Bile # Voids 1 # Incontinent Voids 1 # Unmeasured Emesis 1 Episodes - Consult Information We will continue same TPN formula and rate. BMP ordered in a.m.
[2017-05-26] MEDS: CETIRIZINE 10 MG TABLET PO SCH (08:39)
[2017-05-26] MEDS: TIGECYCLINE 50 MG in NS 100 ML IV SCH ×2 (09:46→20:30)
[2017-05-26] MEDS: ENOXAPARIN 40 MG/0.4 ML INJECTION SQ SCH (09:46)
[2017-05-26] MEDS: GABAPENTIN 100 MG CAPSULE PO SCH ×3 (09:46→20:31)
[2017-05-26] MEDS: MICONAZOLE 2% POWDER 45gm TP SCH ×2 (09:47→20:29)
[2017-05-26] MEDS: NYSTATIN 500,000 units/5 ml ORAL LIQUID PO SCH ×4 (09:48→20:29)
[2017-05-26] MEDS ORDERED: FALL RISK - PHARMACY CONSULT MC PRN (10:45)
[2017-05-26] MEDS: MORPHINE SULFATE 10mg/0.5ml ORAL LIQ SL PRN (11:12)
[2017-05-26] MEDS: SALINE FLUSH 10ml SYRINGE IV PRN (15:37)
[2017-05-26] MEDS: FAT EMULSION 20% 100 ML IV SCH (15:37)
[2017-05-26] MEDS: POTASSIUM CHLORIDE IV SCH (15:37)
[2017-05-26] MEDS: SODIUM CHLORIDE IV SCH (15:37)
[2017-05-26] MEDS: SODIUM ACETATE IV SCH (15:37)
[2017-05-26] MEDS: [UNRECOGNIZED DRUG - OTHER] IV SCH (15:37)
[2017-05-26] MEDS: DiphenhydrAMINE 50 MG/ML INJECTION IVP PRN (20:28)
[2017-05-27] MEDS: Oxycodone *IR* 5 MG TABLET PO PRN ×6 (02:59→22:53)
[2017-05-27] MEDS: PROMETHAZINE 25 MG INJECTION IVP PRN ×2 (02:59→12:18)
--- NOTE | 2017-05-27 08:19 | Pharmacy Consult-TPN/PPN ---
Pharmacy Consult-TPN/PPN - Laboratory Information Chemistry Turbidity < 20 (0-20) 05/27/17 04:28 Sodium 138 MEQ/L (134-144) 05/27/17 04:28 Potassium 4.6 MEQ/L (3.6-5) 05/27/17 04:28 Chloride 105 MEQ/L (98-107) 05/27/17 04:28 Carbon Dioxide 26 MEQ/L (22-30) 05/27/17 04:28 Anion Gap 7 MEQ/L (5-15) 05/27/17 04:28 BUN 38.0 MG/DL (7-17) H 05/27/17 04:28 Creatinine 0.9 MG/DL (0.7-1.2) 05/27/17 04:28 GFR Calculation 69 05/27/17 04:28 BUN/Creatinine Ratio 42 RATIO (6-26) H 05/27/17 04:28 Glucose 98 MG/DL (65-110) 05/27/17 04:28 Glucometer 132 mg/dL (65-110) 05/26/17 20:26 Calculated Osmolality 275 MOSM/KG (261-280) 05/27/17 04:28 Uric Acid 3.6 MG/DL (2.5-7.5) 05/15/17 01:01 Calcium 7.8 MG/DL (8.4-10.2) L 05/27/17 04:28 Phosphorus 4.1 MG/DL (2.5-4.5) 05/25/17 04:46 Magnesium 2.1 MG/DL (1.6-2.3) 05/25/17 04:46 Total Bilirubin 0.90 MG/DL (0.20-1.30) 05/24/17 04:38 Icterus Index < 2 (0-7) 05/27/17 04:28 AST 45 U/L (14-36) H 05/24/17 04:38 ALT 44 U/L (9-52) 05/24/17 04:38 Alkaline Phosphatase 409 U/L (38-126) H 05/24/17 04:38 Total Protein 5.6 G/DL (6.3-8.2) L 05/24/17 04:38 Albumin 2.0 G/DL (3.5-5.0) L 05/24/17 04:38 Globulin 3.6 G/DL (2.4-3.6) 05/24/17 04:38 Albumin/Globulin Ratio 0.6 RATIO (1.1-2.2) L 05/24/17 04:38 Prealbumin 6.9 MG/DL (17.6-36.0) L 05/17/17 05:01 Plasma Lactate 2.6 MMOL/L (0.6-2.2) H 05/21/17 15:04 Procalcitonin 0.93 NG/ML 05/23/17 04:59 Specimen Hemolysis < 15 (0-25) 05/27/17 04:28 Intake and Output 05/26/17 05/27/17 05/28/17 06:59 06:59 06:59 Intake Total 2610 / 2610 2557.5 / 2557.5 Output Total 1200 / 1200 1060 / 1060 Balance 1410 / 1410 1497.5 / 1497.5 Weight 70.5 kg Intake: IV 1940 / 0 1987.5 / 1986.5 Intralipid 20% 100 ml @ 100 / 100 50 mls/hr IV 1600 SEAN Rx# :[id number] Sodium Chloride Conc 4 1640 / 1640 1787.5 / 1787.5 Meq/ml Sodium Acetate 60 Meq KCl 80 Meq K Phos Inj 20 Meq Magnesium Sulfate Inj 16 Meq Calcium Gluconate 9.3 Meq Infuvite Adult 10 ml Multi-Trace Elements 1 ml Folate 2 mg Vitamin B-1 100 mg Potassium Acetate Inj 40 Meq/20 ml In TPN - Custom Formula 2,000 ml @ 75 mls/hr IV .Q24H SEAN Rx#:[id number] Tygacil 50 mg In Normal 200 / 200 200 / 200 Saline 100 ml @ 100 mls/ hr IV BID SEAN Rx#: [id number] Oral 670 / 670 570 / 570 Output: Urine 75 / 75 60 / 60 Stool 950 / 950 950 / 950 Emesis 50 / 50 Urine Amount (Catheter) 175 / 175 Other: Urine Appearance Cloudy Cloudy Sediment Urine Color Light Miranda Dark Miranda Urine Odor Normal Stool Color Brown Brown Green Green Stool Consistency Liquid Emesis Description Bile # Voids 1 # Incontinent Voids 1 1 # Unmeasured Emesis 1 Episodes - Consult Information Gains in serum potassium have been observed so we will decrease KCl in TPN formula to 40mEq (from 80mEq) per bag. Continue same rate. Thanks.
[2017-05-27] MEDS: DiphenhydrAMINE 50 MG/ML INJECTION IVP PRN ×2 (08:42→18:41)
[2017-05-27] MEDS: TIGECYCLINE 50 MG in NS 100 ML IV SCH ×3 (08:43→21:32)
[2017-05-27] MEDS: SALINE FLUSH 10ml SYRINGE IV PRN (08:44)
[2017-05-27] MEDS: ENOXAPARIN 40 MG/0.4 ML INJECTION SQ SCH (09:43)
[2017-05-27] MEDS: GABAPENTIN 100 MG CAPSULE PO SCH ×3 (09:43→21:32)
[2017-05-27] MEDS: DICLOFENAC 1% TOP GEL 100gm TP SCH ×4 (09:45→22:53)
[2017-05-27] MEDS: CETIRIZINE 10 MG TABLET PO SCH (09:46)
[2017-05-27] MEDS: MICONAZOLE 2% POWDER 45gm TP SCH ×2 (09:46→22:47)
[2017-05-27] MEDS: NYSTATIN 500,000 units/5 ml ORAL LIQUID PO SCH ×4 (09:47→22:49)
[2017-05-27] MEDS: FAT EMULSION 20% 100 ML IV SCH (15:35)
[2017-05-27] MEDS: POTASSIUM CHLORIDE IV SCH (15:36)
[2017-05-27] MEDS: [UNRECOGNIZED DRUG - OTHER] IV SCH (15:36)
[2017-05-27] MEDS: SODIUM ACETATE IV SCH (15:36)
[2017-05-27] MEDS: SODIUM CHLORIDE IV SCH (15:36)
[2017-05-27] MEDS: ONDANSETRON 4 MG/2 ML INJECTION IV PRN (20:33)
[2017-05-28] MEDS: Oxycodone *IR* 5 MG TABLET PO PRN ×5 (03:55→21:13)
[2017-05-28] MEDS: ONDANSETRON 4 MG/2 ML INJECTION IV PRN ×2 (04:10→20:58)
[2017-05-28] MEDS: MICONAZOLE 2% POWDER 45gm TP SCH ×2 (08:23→22:58)
[2017-05-28] MEDS: NYSTATIN 500,000 units/5 ml ORAL LIQUID PO SCH ×4 (08:24→22:58)
[2017-05-28] MEDS: PROMETHAZINE 25 MG INJECTION IVP PRN (09:06)
[2017-05-28] MEDS: GABAPENTIN 100 MG CAPSULE PO SCH ×3 (09:13→21:10)
[2017-05-28] MEDS: ENOXAPARIN 40 MG/0.4 ML INJECTION SQ SCH (09:14)
[2017-05-28] MEDS: DICLOFENAC 1% TOP GEL 100gm TP SCH ×4 (09:19→22:58)
--- NOTE | 2017-05-28 09:19 | Progress Note ---
Subjective Date: 05/28/17 Subjective: Laura is feeling better than last week. Her temps are improved. She still has intermittent nausea and vomiting. She is still working with PT on transfers. She continues to ask about eating more real food, such as mashed potatoes. She was started on Tygacil on 05/22 for fever and sepsis. She had elevated lactate. Urine culture grew out >100K of Klebsiella, R only to ampicillin. Blood cultures from 05/21 were negative. Her christine was removed over the weekend. Exam Vital Signs: Temperature 98.5 F 05/28/17 08:00 Pulse Rate 101 H 05/28/17 08:00 Respiratory Rate 20 05/28/17 08:00 Blood Pressure 114/73 05/28/17 08:00 Pulse Oximetry 94 05/28/17 08:00 Oxygen Delivery Method Room Air Fraction of Inspired Oxygen 21 Height/Weight/BMI: Height 1.57 m Weight 70.5 kg Body Mass Index 26.2 - Constitutional Present: no acute distress Comments: chronically ill-appearing - Routine HEENT Exam Head: Present: normocephalic, atraumatic Eye: Present: EOMI, PERRL ENT: Present: mucous membranes moist, dentition normal - Routine Neck Exam Present: supple - Routine Respiratory Exam Present: CTA bilaterally - Routine Cardiovascular Exam Present: RRR. Absent: murmur - Routine Abdominal Exam Comments: Large open area on abdomen, covered with wound manager access. no changes. - Routine Extremities Exam Absent: clubbing, edema Comments: contractures bilateral LEs - Routine Skin Exam Present: intact. Absent: rash Comments: PICC site ok - Routine Neurological Exam Present: alert, oriented X3, CN II-XII intact - Routine Psychiatric Exam Present: normal affect Results - Labs CBC & Chem 7: 05/27/17 04:28 05/27/17 04:28 Microbiology Results: Microbiology 05/21/17 05:09 Peripheral/Iv Start Blood Culture - Final No Growth After 5 Days 05/21/17 05:10 Peripheral/Iv Start Blood Culture - Final No Growth After 5 Days 05/22/17 10:27 Throat Group A Streptococcus Culture - Final No Group A Strep Isolated 05/21/17 05:01 Urine, Voided (Cc/notcc) Urine Culture - Final Klebsiella pneumoniae 05/14/17 22:43 Cath/Port/Line/Picc Blood Culture - Final No Growth After 5 Days 05/14/17 22:46 Cath/Port/Line/Picc Blood Culture - Final No Growth After 5 Days Impression: * Recent sepsis, NOS, likely secondary to pancreatic pseudocyst, unable to be drained on 05/01. * Intra-abdominal fluid collection (4.1 x 4.1 x 4.6cm) * Leukocytosis, improving * Nausea/vomiting, improved after stopping Tygacil. * Abdominal pain, chronic, but worse per patient. * H/o urine culture with >100K of Kleb. pneumoniae, ESBL positive, suspect colonization. * H/o rash on Merrem, Vancomycin, PCN, cephalosporins * H/o CLABSI with E. faecalis, s/p CVL removal 03/26, treated with Tygacil (due to allergies) through 04/09. 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 That will complete 7 days. Her christine is now removed. I would monitor her closely off antibiotics. I think she understands that the christine increases her risk of infections. Sepsis Assessment - Evaluation Sepsis screening result: No Definite Risk
[2017-05-28] MEDS: TIGECYCLINE 50 MG in NS 100 ML IV SCH ×2 (09:21→21:03)
[2017-05-28] MEDS: CETIRIZINE 10 MG TABLET PO SCH (09:53)
--- NOTE | 2017-05-28 11:22 | IRU Progress Note ---
- Subjective/Serverity of Illness Laura was evaluated in her room today. Continues to require a lot of verbal encouragement to participate in therapies. Requires assistance for dressing. Assistance for transfers as well. Medically, she is noted to have a recent urinary tract infection. She is now on tigecycline since May 21. Continues to complain of nausea without vomiting. Update on medical issues as follows: 1. Pain management in view of her abdominal pain: Laura rates her pain as an 8 out of 10. Continues to be mainly on the left side of her abdomen. 2. 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 She is tolerating TPN. This is monitored by pharmacy as well. No evidence of central line infection at present. 3. UTI: Growing Klebsiella. She is on tigecycline. Does have nausea. Afebrile. Mills catheter is out. 4. Recent hyponatremia - improved 5. 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 Exam Vital Signs: Temperature 98.5 F 05/28/17 08:00 Pulse Rate 101 H 05/28/17 08:00 Respiratory Rate 20 05/28/17 08:00 Blood Pressure 114/73 05/28/17 08:00 Pulse Oximetry 94 05/28/17 08:00 Oxygen Delivery Method Room Air Fraction of Inspired Oxygen 21 Height/Weight/BMI: Height 1.57 m Weight 70.5 kg Body Mass Index 26.2 Comments: The patient is awake, alert and oriented and in moderate acute distress. Pupils are equal. The neck is supple. Chest: Clear to auscultation bilaterally. Cor: RR with no gallop, click nor murmur Abd: Inspection of the anterior abdomen is unchanged. No active inflammation. Bowel sounds present. Diffusely tender. Extremities: No edema is noted. There are good pulses in both ankles. No cyanosis is present. Results IRU - Labs Labs: Reviewed urine culture and other lab results. White count now improved at 10, 000. Sepsis Assessment - Evaluation Sepsis screening result: No Definite Risk IRU A/P (1) Myopathy Problem details: Critical illness myopathy Current visit: Yes Status: Acute Continues to have diffuse muscle weakness. Requires significant encouragement for participation in therapies. (2) Open abdominal wall wound Qualifiers: Encounter type: subsequent encounter Qualified Code(s): S31.109D - Unspecified open wound of abdominal wall, unspecified quadrant without penetration into peritoneal cavity, subsequent encounter Current visit: Yes Status: Chronic Abdominal wound continues to be an issue with regard to pain. No evidence of active infection. She is afebrile and her white count is improved at 10,000. (3) Diabetes Qualifiers: Diabetes mellitus type: due to underlying condition Diabetes mellitus complication status: without complication Diabetes mellitus terminal gauger supervisor insulin use: without terminal gauger supervisor use Qualified Code(s): E08.9 - Diabetes mellitus due to underlying condition without complications Current visit: No Status: Chronic (4) Protein-calorie malnutrition, moderate Current visit: Yes Status: Chronic Continues to complain of nausea. She is on TPN and tolerates it well at this time. (5) Ankle pain, right Qualifiers: Chronicity: acute Qualified Code(s): M25.571 - Pain in right ankle and joints of right foot Current visit: Yes Status: Resolved (6) UTI (urinary tract infection) Qualifiers: Urinary tract infection type: acute cystitis Hematuria presence: with hematuria Qualified Code(s): N30.01 - Acute cystitis with hematuria Current visit: Yes Status: Acute Patient has Klebsiella growing from urine. Catheter is out. She is on tigecycline. DVT Prophylaxis: Lovenox Resuscitation Status: Full Code - Course Hospital Course: Yevgeniy Woo MD: 05/08/17 10:09 Initiating physical therapy and occupational therapy. Patient is cooperative this morning. Complains of chronic abdominal pain. Limiting oral intake in an effort to reduce leakage from the wound and allow patient to participate in therapy. She would like to increase the restriction from 120 up to 150 ML per hour. This will be allowed. This is excluding intake at mealtime. We will leave a cup at her bedside and I asked her to simply sip on this and not take it all at once. She agreed to do this. White count 14,000 but without evidence of active infection. She remains afebrile. Pain management is with patches and oral agents only. 05/09/17 11:50 Continues to require significant encouragement to participate with therapy. Walked 6 ft. Abd pain is remaining as ongoing pain issue. Protein calorie malnutrition addressed with TPN. 05/10/17 11:19 She is making slow progress. White count improved to 13,000. Appreciate hospitalists assistance. Lower extremity dressing is improved. Walking distance improved. Transfers minimally improved. Significant concerns about patient motivation and safety awareness remains. Abdominal pain, nausea and vomiting impact her therapy progress. 05/14/17 10:48 Has multiple medical problems. Making very slow progress. Frequently refuses therapy or at least postpones it. Requires much encouragement to participate. Increased fentanyl patch in an effort to improve her pain management. Continues on TPN. White count improved to 12,000. 05/15/17 10:39 Continues to be very complex. Had poor urine output but responded to fluid bolus. Requires total assistance for many ADLs. Increase fentanyl patch 2-3 days ago. Hopefully that will provide additional pain improvement. White count is improved. Hemoglobin down at 7.1. Does have right ankle pain now which impedes her progress. 05/16/17 10:54 Continues on TPN. Hemoglobin improved at 7.6. White count remains relatively low for her at 11,000. Right ankle pain appears to virtually have resolved. MRI shows disuse osteoporosis only. No evidence of active infection nor inflammation. Seems to have a better attitude today. We will continue current pain management although we did discuss the possibility of oral morphine yesterday. If we do that she will probably be able to tolerate the morphine concentrate and a sublingual or a lingual route. However we will hold off for the time being. Continues to require close medical management of multiple medical conditions. 05/18/17 09:56 Appreciate assistance of infectious disease and hospitalist service. Low-grade fever of 99 but stable white count at 12,000. No evidence of infection and ID recommends no antibiotics at present. Continues to require a lot of encouragement for therapies but is slowly improving. She indicated she does want to get back home. She would like to eat more and again we recommended no advance in her diet due to recurrent nausea and vomiting. She requires close medical management for multiple medical conditions. 05/28/17 11:26 Remains afebrile New diagnosis of UTI with Klebsiella and is now on tigecycline. Followed by Dr. Puente. Tolerating TPN well. Chronic nausea States that she feels better today overall and has more energy. Continues to require a lot of encouragement for - Interventions to Obtain Goals PT Treatment Plan: Balance/Proprioception, Functional Activities, Gait Training , Patient/Family Education, Therapeutic Exercise OT Treatment Plan: ADL (Basic Care), Balance Training, Pt./Family Education, UE Functional Training
--- NOTE | 2017-05-28 11:50 | Progress Note ---
Subjective: Laura was resting in bed when I stopped in but in good spirits. She's seeing progress. Her pain is at bay. She asks about eating real food. She states that her abdominal dressing is due to be changed today. She denies any fevers or problems breathing. She continues to have throat pain, but it's not any worse than it has been. She's been getting up to urinate even though it's been hard. Objective Vital signs: Temperature 98.5 F 05/28/17 08:00 Pulse Rate 101 H 05/28/17 08:00 Respiratory Rate 20 05/28/17 08:00 Blood Pressure 114/73 05/28/17 08:00 Pulse Oximetry 94 05/28/17 08:00 Oxygen Delivery Method Room Air Fraction of Inspired Oxygen 21 Height/Weight/BMI: Height 1.57 m Weight 70.5 kg Body Mass Index 26.2 - Constitutional Present: no acute distress, well nourished, well developed - Routine HEENT Exam Eye: Present: PERRL. Absent: conjunctival icterus ENT: Present: mucous membranes moist, oropharynx clear - Routine Respiratory Exam Present: CTA bilaterally - Routine Cardiovascular Exam Present: RRR, S1, S2 - Routine Abdominal Exam Present: soft Comments: dressing intact - Routine Extremities Exam Present: no edema, pulses intact, normal capillary refill - Routine Musculoskeletal Exam Musculoskeletal: Present: contractures - Routine Skin Exam Present: intact, dry, warm - Routine Neurological Exam Present: alert, oriented X3 - Routine Psychiatric Exam Present: normal affect, normal thought process, cooperative Results - Labs CBC & Chem 7: 05/27/17 04:28 05/27/17 04:28 Microbiology Results: Microbiology 05/21/17 05:09 Peripheral/Iv Start Blood Culture - Final No Growth After 5 Days 05/21/17 05:10 Peripheral/Iv Start Blood Culture - Final No Growth After 5 Days 05/22/17 10:27 Throat Group A Streptococcus Culture - Final No Group A Strep Isolated 05/21/17 05:01 Urine, Voided (Cc/notcc) Urine Culture - Final Klebsiella pneumoniae 05/14/17 22:43 Cath/Port/Line/Picc Blood Culture - Final No Growth After 5 Days 05/14/17 22:46 Cath/Port/Line/Picc Blood Culture - Final No Growth After 5 Days Assessment and Plan (1) Open abdominal wall wound Current visit: Yes Status: Chronic (2) Myopathy Problem details: Critical illness myopathy Current visit: Yes Status: Acute Resuscitation Status: Full Code Assessment and Plan: Assessment Generalized debility and myopathy secondary to prolonged illness and hospitalizations. Recent sepsis secondary to E. faecalis CLABSI and recurrent peritonitis due to enteric leak. Klebsiella UTI - started Tygacil 05/21/17. Urinary retention - repeated need for Christine Leukocytosis, persistent. Thrombocytosis 05/19 Elevated BUN - improving. Hx of recurrent UTI from volume depletion. RLE - erythema - improved TPN use with intermittent electrolyte imbalances. LFT elevation, possibly from TPN Anemia of chronic disease. S/P PRBC transfusion. Moderate protein calorie malnutrition. Hypertension - blood pressures are frequently low-normal. Diabetes vs TPN-induced hyperglycemia. 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 Luu/Dr. Omar Brown) Decubitus ulcer, coccyx. Wound care consulted. Pancreatic pseudocyst, chronic. Unsuccessful attempt for endoscopic cyst gastrostomy for drainage on 05/01/17. Metastatic neuroendocrine tumor, s/p resection, chronic. R ankle pain, disuse osteoporosis on MRI Plan Klebsiella UTI - completed 7-day course of Tygacil. Christine has been out for a few days. Hgb improved to 9.0 - s/p PRBC transfusion on 05/22/17. She's been refusing Nystatin (makes her vomit) - she will let us know if her sore throat becomes worse. Consider Diflucan. Sepsis Assessment - Evaluation Sepsis screening result: No Definite Risk Hospital Course Summary Disclaimer: The visit summary below is not to be considered part of the above Progress Note. Hospital Course: 05/09/17 10:24 Impression: Generalized debility and myopathy secondary to prolonged hospitalizations, acute. * Continue to encourage participation in therapies as patient's goal is to return home with the ability to dress self and ambulate short distances. Therapy reports that she has been doing well and was able to walk 6 steps yesterday. Continue to provide safe and supportive environment. Recent sepsis secondary to E. faecalis CLABSI and recurrent peritonitis due to enteric leak, acute. * Continue tigecycline per Dr. Lewis, to be completed on 05/19. Will discontinue Christine catheter today. Will provide a commode initially to encourage successful toileting until patient strength and endurance improved. Leukocytosis, persistent, present on admission. * WBC on admission 14.4. Continue to monitor trends periodically throughout admission. Patient remains afebrile and WBC trending down as compared to prior recent labs from previous admission. Recheck CBC in AM to monitor blood count trends. Hyperphosphoremia, acute. * Phosphorus elevated at 4.9. Pharmacy notified and will adjust TPN. Will recheck in AM as well as BMP to monitor electrolytes and renal function and continue to monitor trends. Anemia, chronic secondary to chronic disease. * Present on admission with hemoglobin 9.3. Improved from prior admissions. Monitor periodically throughout admission. Moderate protein calorie malnutrition, chronic. * Prealbumin 8.5 on admission. Continue TPN per pharmacy. As patient continues to vomit with large amounts of fluids orally, recommend providing no more than 150cc liquid at a time and encourage slow, small, frequent sips. Encourage boost as able. Hypertension, chronic. * Blood pressures well controlled and borderline low at times. Continue to monitor closely. Diabetes, chronic. * Continue to monitor BGMs, especially in light of TPN. Sliding scale insulin as indicated. Intractable abdominal pain and nausea with draining abdominal wound, chronic. * Pain control per Dr. Woo. Continue Zofran and Phenergan for nausea/ vomiting. Decubitus ulcer, coccyx, chronic. * Wound care team to continue to monitor. Monitor closely for signs of worsening. Continue to encourage patient to do position adjustments frequently , at least Q2 hours. Pancreatic pseudocyst, chronic. * Unsuccessful attempt for endoscopic cyst gastrostomy for drainage on 05/01/17. Metastatic neuroendocrine tumor, s/p resection, chronic. 05/09/2017-I reviewed this chart, the patient history, and the OPERATIONS INTELLIGENCE's/PA's documented findings as above. We discussed and formulated the assessment and plan as above with the additions below. I've seen and examined the patient independently.-Dr. Olivier The patient states that she is doing okay. She is having some chronic abdominal pain but it is better this evening. She denies any shortness of breath or chest pain. She denies any current nausea. Christine catheter was removed and at the time that I saw her she had not urinated, but afterward she did have a large incontinence of urine. Bladder scan afterward showed about 150 ML's of urine present. She does not have bowel movements since she is nothing by mouth except for fluids. Vital signs were reviewed. She has a borderline mild tachycardia which on review of view [facility] records was present there as well. She has not had any fever. Blood pressure is okay. On exam the patient is mildly drowsy but in no acute distress. Oropharynx is moist. Neck is supple. Chest is clear to auscultation. Cardiovascular reveals a regular rhythm and a borderline tachycardic rate. Abdomen reveals an open abdominal wound with a clear dressing. There is some yellowish drainage. Extremities are free of edema. SCDs are in place. Regarding sepsis, continue current antibiotics. Regarding the patient's recent sepsis likely from abdominal source, will consult Dr. Puente to see the patient on Sunday. We'll continue to monitor white count. Continue TPN for malnutrition. Continue to monitor hemoglobin regarding anemia. Regarding acute kidney injury, the patient was seeing Dr. Massimo Pina at via [facility]. Her BUN over the past week was ranging from 59-85. I did discontinue ibuprofen that was started here to prevent worsening of acute kidney injury. We' ll need to monitor renal function and fluid status carefully, especially with Christine catheter out. 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 I did discuss the importance of accurate I&O's as much as is possible with her incontinence We'll monitor vital signs frequently and call parameters were placed We'll continue to monitor lab work fairly frequently. 05/12/2017--Dr. 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 The patient also had a new intra-abdominal fluid collection at that time that was 4.1 x 4.1 x 4.6 cm.-the patient has received 3 weeks of tigecycline. Decision made by Dr. Puente/Dr. Lewis of ID on 05/11 to hold further tigecycline. WBC decreased today. Leukocytosis, improved to 14K today, monitoring. Chronic anemia, Hb 7.7, may need PRBC if continued decline. Elevated BUN-trending down Protein calorie malnutrition-requiring TPN with planned intermediate manager need, adjusting per pharmacy Hypertension Diabetes? Versus hyperglycemia from TPN--well controlled currently Chronic abdominal pain secondary to open abdominal wound and pancreatic pseudocyst--suspect not absorbing the po meds well, pain not controlled Decubitus ulcer Pancreatic pseudocyst with unsuccessful attempt for endoscopic cyst stress study on 05/01/2017 History of metastatic neuroendocrine tumor, status post resection History of recurrent acute kidney injury secondary to volume depletion from high output abdominal drainage Debility secondary to prolonged illness Plan Severe pain today and not really able to participate with therapy Not likely absorbing the po meds well, unit policy precludes IV narcotics, d/w Dr. Woo and will increase fentanyl patch to 100 mcg and monitor for improvement with that change. Continue TPN, will increase K and discuss with pharmacy re: total volume in the setting of high drain outputs. Hold further saline today unless evidence of volume depletion, overall volume status appears stable although difficult to assess in her. Recheck CBC, renal panel in AM and CMP Sunday. Continue to encourage participation with therapy. 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 The patient also had a new intra-abdominal fluid collection at that time that was 4.1 x 4.1 x 4.6 cm.-the patient has received 3 weeks of tigecycline. Decision made by Dr. Puente/Dr. Lewis of ID on 05/11 to hold further tigecycline. WBC decreased again today. Afebrile Leukocytosis, improved to 12K today, monitoring. Chronic anemia, Hb 7.5, may need PRBC if continued decline. Elevated BUN-trending down daily, no evidence of intravascular depletion, off saline currently Protein calorie malnutrition-requiring TPN with planned residential need, adjusting per pharmacy, electrolytes stable today Hypertension per history, recent BP marginal in the 90-100 range systolic Diabetes? Versus hyperglycemia from TPN--well controlled currently Chronic abdominal pain secondary to open abdominal wound and pancreatic pseudocyst--suspect not absorbing the po meds well, pain not controlled Decubitus ulcer Pancreatic pseudocyst with unsuccessful attempt for endoscopic cyst stress study on 05/01/2017 History of metastatic neuroendocrine tumor, status post resection History of recurrent acute kidney injury secondary to volume depletion from high output abdominal drainage, volume status stable currently Debility secondary to prolonged illness Plan Continue with current pain control regimen, will defer any further changes to Dr. Woo, comfortable when resting Not likely absorbing the po meds well but has fentanyl patch, increased to 100 mcg on 05/12, monitor Hold any medications that would drop her blood pressure and monitor for signs of infection Continue TPN per pharmacy Hold further saline today unless evidence of volume depletion, labs and exam stable CBC, CMP in AM Continue to encourage participation with therapy. 05/15/17 Plan Continue with current pain control regimen, will defer any further changes to Dr. Woo, comfortable when resting Cory area of erythema to monitor of evidence of extension. Discussed with OT regarding assessing if there is any irritation or rubbing on the right rivas with patient's leg brace. Will evaluate if more padding as needed. Patient verbalizes this area of her leg is so uncomfortable. She is unable to work with therapy or stand. Regarding increased fever overnight, blood cultures have been drawn and are preliminary negative. Will continue to monitor. Leukocytosis remained stable and is trending down. Continue to monitor hemoglobin as this is slightly decreased, likely secondary to dilution given IV fluids overnight. Continue with wound care. Continue to encourage work with PT and OT for ongoing strengthening Plan- 05/16/17 Erythema of RLE is gone and pain has greatly improved. MRI of the Right ankle was obtained and reveled diffuse osteoporosis with mild subQ edema. Since the erythema has improved will hold off on any antibiotic treatment. She has remained afebrile and WBC count remains stable. Appreciated recommendations by Dr Puente to avoid antibiotics if possible. Appreciate Dr Gayle consultation for further recommendations. Continue with TPN for nutrition. Carefully monitor electrolytes. 05/19/17 Leukocytosis persistent but stable; abx continue to hold. Remains afebrile. BP have remained low but stable; MAP >65 mm Hg. Hgb up to 7.9; thrombocytosis also noted in 05/20/17 Pain remains a major concern of pt. She continues on Fentanyl 100mcg/PRN oxycodone/PRN Morphine BID. Will add TID Gabapentin elixer. Consider adding Cymbalta for pain control and anxiety once we see how she is tolerating gabapentin. Continue TPN, pharmacy following. Continue monitoring labs/accu checks. Consider bladder training to DC christine. Persistent leukocytosis with reactive thrombocytosis- consider repeating CT scan if she becomes febrile. Continue strengthening exercises. 05/21/17 Fever of 101.3 this am. WBC up to 15. BC sent. UA positive with sample from catheter - culture was sent. Will check CXR due to SOA. Platelets up to 510. Dr. Puente is planning on re-evaluating her today. Will check lactate and procalcitonin. ?Repeat CT? Continue pain control; change gabapentin to pill but we may need to revert back to elixer if ineffective. BUN and creatinine are trending up - will give 1L NS. Continue bladder retraining. LFTs increasing - could be related to TPN. 05/22/17 Recurrent fever since 05/21/17. Night doctors gave her a one-time dose of tigecycline after temp increased again to 101. UA and BC show no growth after 1 day. CXR was negative. Swab throat for strep. Discussed with Dr. Puente - CT soft tissue of neck. Continue tigecycline. Hgb decreased to 6.9 - repeat now. May need transfusion. She received a liter of NS yesterday. Will give 1 more liter today. BP has been low to low-normal, which is typical for her. Continue TPN. Monitor for fluid overload since she's getting some extra IVF. 05/23/17-plan Continue to monitor gastric output. It is dark brown in nature. On evaluation of abdominal wound. No evidence of acute bleeding. Will continue to follow routine serum hemoglobin level. She did receive a blood transfusion yesterday. His hemoglobin did dip down to 6.9. Hemoglobin this morning is stable at 9.0. Return of mild hypokalemia. Will give a one-time dose of oral potassium supplementation. Strep throat swab remains negative. Oral nystatin ordered. Urine culture continues to reveal Klebsiella, which has been chronic for her. She continues on Tigecycline IV. 05/24/17 Klebsiella UTI - discussed with Dr. Puente. Complete 7-day course of Tygacil ( through 05/27/17). Remove Christine tomorrow am and monitor PVR. Hgb stable at 8.7 s/p PRBC transfusion on 05/22/17. Hypokalemia - K up to 3.8. 05/28/17 Klebsiella UTI - completed 7-day course of Tygacil. Christine has been out for a few days. Hgb improved to 9.0 - s/p PRBC transfusion on 05/22/17. She's been refusing Nystatin (makes her vomit) - she will let us know if her sore throat becomes worse. Consider Diflucan.
[2017-05-28] MEDS ORDERED: FALL RISK - PHARMACY CONSULT MC PRN (12:51)
[2017-05-28] MEDS: ONDANSETRON ODT 4 MG TABLET PO PRN (14:14)
[2017-05-28] MEDS: SALINE FLUSH 10ml SYRINGE IV PRN (16:17)
[2017-05-28] MEDS: POTASSIUM CHLORIDE IV SCH (16:18)
[2017-05-28] MEDS: FAT EMULSION 20% 100 ML IV SCH (16:18)
[2017-05-28] MEDS: [UNRECOGNIZED DRUG - OTHER] IV SCH (16:18)
[2017-05-28] MEDS: SODIUM CHLORIDE IV SCH (16:18)
[2017-05-28] MEDS: SODIUM ACETATE IV SCH (16:18)
--- NOTE | 2017-05-28 16:54 | Wound Care Progress Note ---
Wound Center Progress Note: At this time wound care into see pt and fistulia containment bag changed. Pt was premedicated and tolerated it well. Pt still refused to be an active part of her drsging change today. Will continue to encourage pt to work with the pouching system. Will return to work with at bedside.
[2017-05-29] MEDS: Oxycodone *IR* 5 MG TABLET PO PRN ×3 (07:52→21:43)
[2017-05-29] MEDS: ONDANSETRON ODT 4 MG TABLET PO PRN (07:52)
[2017-05-29] MEDS: GABAPENTIN 100 MG CAPSULE PO SCH ×3 (08:01→22:40)
[2017-05-29] MEDS: MICONAZOLE 2% POWDER 45gm TP SCH ×2 (08:02→21:39)
[2017-05-29] MEDS: ENOXAPARIN 40 MG/0.4 ML INJECTION SQ SCH (08:02)
[2017-05-29] MEDS: NYSTATIN 500,000 units/5 ml ORAL LIQUID PO SCH ×4 (08:02→21:39)
[2017-05-29] MEDS: DICLOFENAC 1% TOP GEL 100gm TP SCH ×4 (08:03→22:14)
[2017-05-29] MEDS: CETIRIZINE 10 MG TABLET PO SCH (08:03)
--- NOTE | 2017-05-29 08:06 | Pharmacy Consult-TPN/PPN ---
Pharmacy Consult-TPN/PPN - Laboratory Information Chemistry Turbidity < 20 (0-20) 05/27/17 04:28 Sodium 138 MEQ/L (134-144) 05/27/17 04:28 Potassium 4.6 MEQ/L (3.6-5) 05/27/17 04:28 Chloride 105 MEQ/L (98-107) 05/27/17 04:28 Carbon Dioxide 26 MEQ/L (22-30) 05/27/17 04:28 Anion Gap 7 MEQ/L (5-15) 05/27/17 04:28 BUN 38.0 MG/DL (7-17) H 05/27/17 04:28 Creatinine 0.9 MG/DL (0.7-1.2) 05/27/17 04:28 GFR Calculation 69 05/27/17 04:28 BUN/Creatinine Ratio 42 RATIO (6-26) H 05/27/17 04:28 Glucose 98 MG/DL (65-110) 05/27/17 04:28 Glucometer 112 mg/dL (65-110) 05/29/17 04:53 Calculated Osmolality 275 MOSM/KG (261-280) 05/27/17 04:28 Uric Acid 3.6 MG/DL (2.5-7.5) 05/15/17 01:01 Calcium 7.8 MG/DL (8.4-10.2) L 05/27/17 04:28 Phosphorus 4.1 MG/DL (2.5-4.5) 05/25/17 04:46 Magnesium 2.1 MG/DL (1.6-2.3) 05/25/17 04:46 Total Bilirubin 0.90 MG/DL (0.20-1.30) 05/24/17 04:38 Icterus Index < 2 (0-7) 05/27/17 04:28 AST 45 U/L (14-36) H 05/24/17 04:38 ALT 44 U/L (9-52) 05/24/17 04:38 Alkaline Phosphatase 409 U/L (38-126) H 05/24/17 04:38 Total Protein 5.6 G/DL (6.3-8.2) L 05/24/17 04:38 Albumin 2.0 G/DL (3.5-5.0) L 05/24/17 04:38 Globulin 3.6 G/DL (2.4-3.6) 05/24/17 04:38 Albumin/Globulin Ratio 0.6 RATIO (1.1-2.2) L 05/24/17 04:38 Prealbumin 6.9 MG/DL (17.6-36.0) L 05/17/17 05:01 Plasma Lactate 2.6 MMOL/L (0.6-2.2) H 05/21/17 15:04 Procalcitonin 0.93 NG/ML 05/23/17 04:59 Specimen Hemolysis < 15 (0-25) 05/27/17 04:28 Intake and Output 05/28/17 05/29/17 05/30/17 06:59 06:59 06:59 Intake Total 450 / 450 3040.5 / 3040.5 Output Total 1640 / 1640 900 / 900 Balance -1190 / -1190 2140.5 / 2140.5 Intake: IV 300 / 300 2052.5 / 2052.5 Intralipid 20% 100 ml @ 100 / 100 100 / 100 50 mls/hr IV 1600 [facility] Rx# :[id number] Sodium Chloride Conc 4 1852.5 / 1852.5 Meq/ml Sodium Acetate 60 Meq KCl 40 Meq K Phos Inj 20 Meq Magnesium Sulfate Inj 16 Meq Calcium Gluconate 9.3 Meq Infuvite Adult 10 ml Multi-Trace Elements 1 ml Folate 2 mg Vitamin B-1 100 mg Potassium Acetate Inj 40 Meq/20 ml In TPN - Custom Formula 2,000 ml @ 75 mls/hr IV .Q24H [facility] Rx#:[id number] Tygacil 50 mg In Normal 200 / 200 100 / 100 Saline 100 ml @ 100 mls/ hr IV BID [facility] Rx#: [id number] Oral 150 / 150 988 / 988 Output: Urine 40 / 40 Stool 1600 / 1600 900 / 900 Other: Urine Color Yellow Straw Stool Color Brown Green # Voids 0 # Incontinent Voids 1 1 - Consult Information FS glucose is 112. No electrolytes were ordered today, ordered lytes, mag and phosphorus for tomorrow. Thank you.
[2017-05-29] MEDS: PROMETHAZINE 25 MG INJECTION IVP PRN ×2 (10:37→21:33)
--- NOTE | 2017-05-29 11:45 | IRU Progress Note ---
- Subjective/Serverity of Illness Laura was evaluated in her room today. Continues to complain of nausea. She is on tigecycline which certainly could be a factor. Continues to state that she feels like she has more energy. Continues to complain of left-sided abdominal pain which continues to be a barrier to progress. I have reviewed the therapists notes. Requires total assistance for bathing and toileting. She continues to require a lot of verbal encouragement to participate. Exam Vital Signs: Temperature 97.2 F 05/29/17 11:22 Pulse Rate 116 H 05/29/17 11:22 Respiratory Rate 16 05/29/17 11:22 Blood Pressure 117/81 05/29/17 11:22 Pulse Oximetry 97 05/29/17 11:22 Oxygen Delivery Method Room Air Fraction of Inspired Oxygen 21 Height/Weight/BMI: Height 1.57 m Weight 70.5 kg Body Mass Index 26.2 Comments: The patient is awake, alert and oriented and in some acute abdominal pain. Pupils are equal. The neck is supple. Chest: Clear to auscultation bilaterally. Cor: RR with no gallop, click nor murmur Abd: soft although tender, with normo-active bowel sounds. Abd is difficult to assess. Wound inspected and unchanged. Extremities: No edema is noted. There are good pulses in both ankles. No cyanosis is present. Sepsis Assessment - Evaluation Sepsis screening result: No Definite Risk IRU A/P (1) Myopathy Problem details: Critical illness myopathy Current visit: Yes Status: Acute Continues to display significant muscle weakness. Requires a lot of verbal encouragement to participate with therapy. (2) Open abdominal wall wound Qualifiers: Encounter type: subsequent encounter Qualified Code(s): S31.109D - Unspecified open wound of abdominal wall, unspecified quadrant without penetration into peritoneal cavity, subsequent encounter Current visit: Yes Status: Chronic Wound is stable. (3) Diabetes Qualifiers: Diabetes mellitus type: due to underlying condition Diabetes mellitus complication status: without complication Diabetes mellitus usp insulin use: without terminal clerk use Qualified Code(s): E08.9 - Diabetes mellitus due to underlying condition without complications Current visit: No Status: Chronic (4) Protein-calorie malnutrition, moderate Current visit: Yes Status: Chronic Remains on TPN. Blood tests are stable. (5) Ankle pain, right Qualifiers: Chronicity: acute Qualified Code(s): M25.571 - Pain in right ankle and joints of right foot Current visit: Yes Status: Resolved (6) UTI (urinary tract infection) Qualifiers: Urinary tract infection type: acute cystitis Hematuria presence: with hematuria Qualified Code(s): N30.01 - Acute cystitis with hematuria Current visit: Yes Status: Acute She is on tigecycline per Dr. Puente. DVT Prophylaxis: Lovenox Resuscitation Status: Full Code - Course Hospital Course: Yevgeniy Woo MD: 05/08/17 10:09 Initiating physical therapy and occupational therapy. Patient is cooperative this morning. Complains of chronic abdominal pain. Limiting oral intake in an effort to reduce leakage from the wound and allow patient to participate in therapy. She would like to increase the restriction from 120 up to 150 ML per hour. This will be allowed. This is excluding intake at mealtime. We will leave a cup at her bedside and I asked her to simply sip on this and not take it all at once. She agreed to do this. White count 14,000 but without evidence of active infection. She remains afebrile. Pain management is with patches and oral agents only. 05/09/17 11:50 Continues to require significant encouragement to participate with therapy. Walked 6 ft. Abd pain is remaining as ongoing pain issue. Protein calorie malnutrition addressed with TPN. 05/10/17 11:19 She is making slow progress. White count improved to 13,000. Appreciate hospitalists assistance. Lower extremity dressing is improved. Walking distance improved. Transfers minimally improved. Significant concerns about patient motivation and safety awareness remains. Abdominal pain, nausea and vomiting impact her therapy progress. 05/14/17 10:48 Has multiple medical problems. Making very slow progress. Frequently refuses therapy or at least postpones it. Requires much encouragement to participate. Increased fentanyl patch in an effort to improve her pain management. Continues on TPN. White count improved to 12,000. 05/15/17 10:39 Continues to be very complex. Had poor urine output but responded to fluid bolus. Requires total assistance for many ADLs. Increase fentanyl patch 2-3 days ago. Hopefully that will provide additional pain improvement. White count is improved. Hemoglobin down at 7.1. Does have right ankle pain now which impedes her progress. 05/16/17 10:54 Continues on TPN. Hemoglobin improved at 7.6. White count remains relatively low for her at 11,000. Right ankle pain appears to virtually have resolved. MRI shows disuse osteoporosis only. No evidence of active infection nor inflammation. Seems to have a better attitude today. We will continue current pain management although we did discuss the possibility of oral morphine yesterday. If we do that she will probably be able to tolerate the morphine concentrate and a sublingual or a lingual route. However we will hold off for the time being. Continues to require close medical management of multiple medical conditions. 05/18/17 09:56 Appreciate assistance of infectious disease and hospitalist service. Low-grade fever of 99 but stable white count at 12,000. No evidence of infection and ID recommends no antibiotics at present. Continues to require a lot of encouragement for therapies but is slowly improving. She indicated she does want to get back home. She would like to eat more and again we recommended no advance in her diet due to recurrent nausea and vomiting. She requires close medical management for multiple medical conditions. 05/28/17 11:26 Remains afebrile New diagnosis of UTI with Klebsiella and is now on tigecycline. Followed by Dr. Puente. Tolerating TPN well. Chronic nausea States that she feels better today overall and has more energy. Continues to require a lot of encouragement for 05/29/17 11:44 Reports that she is nauseated. Remains on tigecycline for UTI with Klebsiella. Tolerating TPN well. Chronic abdominal pain noted. Continues to require significant encouragement. - Interventions to Obtain Goals PT Treatment Plan: Balance/Proprioception, Functional Activities, Gait Training , Patient/Family Education, Therapeutic Exercise OT Treatment Plan: ADL (Basic Care), Balance Training, Pt./Family Education, UE Functional Training
--- NOTE | 2017-05-29 15:26 | IRU Team Meeting ---
IRU Team Meeting - Nursing Vital Signs: Vital Signs - 24 hr 05/28/17 16:00 05/28/17 19:44 05/29/17 04:00 Temperature 99 F 98.4 F 98.1 F Pulse Rate 108 H 106 H 100 Respiratory Rate 20 20 20 Blood Pressure 101/65 98/63 96/59 Pulse Oximetry 97 96 96 05/29/17 07:54 05/29/17 11:22 Temperature 98.4 F 97.2 F Pulse Rate 100 116 H Respiratory Rate 18 16 Blood Pressure 106/64 117/81 Pulse Oximetry 96 97 Current Medications: Acetaminophen (Tylenol) 1,000 mg PO Q6H PRN PRN Reason: Pain Last Admin: 05/22/17 12:44 Dose: 1,000 mg Acetaminophen (Tylenol Supp) 650 mg MD Q4H PRN PRN Reason: Fever Albuterol/Ipratropium (Duoneb) 3 ml AEROSOL QID PRN PRN Reason: Shortness of air/wheezing Belladonna Alkaloids/Opium (B & O Supp 16.2/60) 1 supp MD Q12HR PRN Last Admin: 05/20/17 09:58 Dose: 1 supp Calcium Carbonate (Tums) 1,000 mg PO PRN PRN PRN Reason: Dyspepsia Last Admin: 05/21/17 11:57 Dose: 1,000 mg Cetirizine HCl (Zyrtec) 5 mg PO DAILY [facility] Last Admin: 05/29/17 08:03 Dose: 5 mg Diclofenac Sodium (Voltaren) 1 applic TP QID [facility] Last Admin: 05/29/17 08:03 Dose: 1 applic Diphenhydramine HCl (Benadryl) 25 mg IVP Q8H PRN PRN Reason: Itching Last Admin: 05/27/17 18:41 Dose: 25 mg Enoxaparin Sodium (Lovenox) 40 mg SQ DAILY [facility] Last Admin: 05/29/17 08:02 Dose: 40 mg Fentanyl (Duragesic Patch) 100 mcg TD Q3D [facility] Last Admin: 05/26/17 11:12 Dose: 100 mcg Fentanyl Citrate (Duragesic Patch Removal) 1 removal TD Q3D [facility] Last Admin: 05/26/17 11:12 Dose: 1 removal Furosemide (Lasix) 20 mg IVP DAILY PRN PRN Reason: NEEDED Gabapentin (Neurontin) 200 mg PO TID [facility] Last Admin: 05/29/17 08:01 Dose: 200 mg Glucagon (Glucagen) 1 mg IM PRN PRN PRN Reason: hypoglycemia Heparin Sodium (Beef Lung) (Heparin Flush) 100 unit IV BID [facility] Last Admin: 05/29/17 10:03 Dose: 100 unit Heparin Sodium (Beef Lung) (Heparin Flush) 100 unit IV BID [facility] Last Admin: 05/29/17 10:04 Dose: 100 unit Heparin Sodium (Beef Lung) (Heparin Flush) 100 unit IV BID [facility] Last Admin: 05/29/17 10:04 Dose: Not Given Heparin Sodium (Beef Lung) (Heparin Flush) 100 unit IV PRN PRN Last Admin: 05/24/17 05:16 Dose: 100 unit Hydroxyzine HCl (Atarax) 25 mg PO QID PRN PRN Reason: Itching Last Admin: 05/27/17 20:33 Dose: 25 mg Fat Emulsion Intravenous (Intralipid 20%) 100 mls @ 50 mls/hr IV 1600 [facility] Last Infusion: 05/28/17 18:29 Dose: Infused Sodium Chloride 140 meq/Sodium Acetate 60 meq/Potassium Chloride 40 meq/ Potassium Phosphate 20 meq/Magnesium Sulfate 16 meq/Calcium Gluconate 9.3 meq/ Multivitamins/Minerals 10 ml/Chromium/Copper/Manganese/Zinc 1 ml/ Folic Acid 2 mg/Thiamine HCl 100 mg/ Potassium Acetate 20 meq/ Amino Acids/Electrolytes 2, 135.9455 mls @ 75 mls/hr IV .Q24H [facility] Last Admin: 05/28/17 16:18 Dose: 75 mls/hr Insulin Aspart (Novolog) 0 unit SQ SS PRN PRN Reason: Protocol Last Admin: 05/26/17 17:32 Dose: 2 unit Lorazepam (Ativan Inj) 0.25 mg IM Q6H PRN PRN Reason: Anxiety Miconazole Nitrate (Desenex) 1 applic TP BID [facility] Last Admin: 05/29/17 08:02 Dose: Not Given Morphine Sulfate (Roxanol Oral Liq) 10 mg SL BID PRN PRN Reason: Severe pain Last Admin: 05/26/17 11:12 Dose: 10 mg Nystatin (Mycostatin) 1 applic TP BID [facility] Last Admin: 05/29/17 08:02 Dose: Not Given Nystatin (Mycostatin) 5 ml PO QID [facility] Stop: 06/01/17 20:59 Last Admin: 05/29/17 08:02 Dose: Not Given Ondansetron HCl (Zofran Po) 4 mg PO Q6H PRN PRN Reason: Nausea Last Admin: 05/29/17 07:52 Dose: 4 mg Ondansetron HCl (Zofran) 4 mg IV Q6H PRN PRN Reason: Nausea &/or vomiting Last Admin: 05/28/17 20:58 Dose: 4 mg Oxycodone HCl (Roxicodone *Ir*) 5 - 10 mg PO Q4HPRN PRN PRN Reason: Pain Last Admin: 05/29/17 07:52 Dose: 10 mg Polyethylene Glycol (Miralax) 17 gm PO DAILY PRN PRN Reason: Constipation Promethazine HCl (Phenergan Inj) 25 mg IVP Q4H PRN PRN Reason: NAUSEA & VOMITING Last Admin: 05/29/17 10:37 Dose: 25 mg Saliva Substitute (Biotene Moisturizing Mouth Arbuckle) 4 spray PO QID PRN PRN Reason: Dry mouth Sodium Chloride (Iv Flush) 10 - 80 ml IV PRN PRN PRN Reason: Flushing Last Admin: 05/28/17 16:17 Dose: 60 ml Sodium Chloride (Normal Saline) 500 ml IV PRN PRN Last Admin: 05/27/17 09:44 Dose: 500 ml Throat Lozenges (Chloraseptic Arbuckle) 3 spray PO Q2H PRN PRN Reason: Sore throat Venlafaxine HCl (Effexor Xr) 37.5 mg PO WB [facility] Comments: I certify that I personally led the interdisciplinary team meeting and agree with comments, barriers and goals indicated. Team meeting was held in the patient's room with the patient and the following family members present: Ramona Nieto continues to make slow progress. From a medical standpoint she continues to have abdominal pain. Has frequent nausea. Tigecycline has been discontinued after treatment for a urinary tract infection. Catheters been removed previously. Extensive discussion was undertaken with the patient and her regarding plans for dismissal and transition to home health care in her home. In addition , I contacted the patient's physician Dr. Nas Ruelas in [place] who has agreed to assume her care as outpatient. She remains on TPN. Lab work is been stable. She remains afebrile. and patient present during entire discussion including discussion regarding ostomy management. requests that home health be involved in ostomy management. - Physical Therapy Comments: Physical therapy continues to work with patient. Patient requires significant encouragement to participate with therapy. She requires total assistance for ambulation. Her standing times have improved slightly. She is standby assistance with wheelchair propulsion. This is an improvement. - Occupational Therapy Lower Body Dressing Comment: Occupational therapy confirms that patient required significant verbal encouragement to participate. She has made improvement. She is moderate assistance with bathing. She is total assistance for toileting. - Care Plan Anticipated Length of Stay: 7 Anticipated DC Destination: Home Health Service Interventions/Goals: Barriers to progress: Pain, motivation, nausea Goals: Patient to be out of bed for 1.5 hours daily, patient and family to participate in education regarding ostomy management. Transfers to commode or bathroom successful.
[2017-05-29] MEDS: SODIUM CHLORIDE IV SCH (15:46)
[2017-05-29] MEDS: POTASSIUM CHLORIDE IV SCH (15:46)
[2017-05-29] MEDS: SODIUM ACETATE IV SCH (15:46)
[2017-05-29] MEDS: FAT EMULSION 20% 100 ML IV SCH (15:46)
[2017-05-29] MEDS: [UNRECOGNIZED DRUG - OTHER] IV SCH (15:46)
[2017-05-29] MEDS: Venlafaxine XR 37.5 MG CAPSULE (24hr) PO SCH (18:03)
[2017-05-29] MEDS: DiphenhydrAMINE 50 MG/ML INJECTION IVP PRN (21:43)
[2017-05-30] MEDS: ONDANSETRON 4 MG/2 ML INJECTION IV PRN ×2 (03:41→21:21)
[2017-05-30] MEDS: Oxycodone *IR* 5 MG TABLET PO PRN ×2 (04:08→21:32)
--- NOTE | 2017-05-30 08:55 | Pharmacy Consult-TPN/PPN ---
Pharmacy Consult-TPN/PPN - Laboratory Information Chemistry Turbidity < 20 (0-20) 05/30/17 04:54 Sodium 138 MEQ/L (134-144) 05/30/17 04:54 Potassium 4.1 MEQ/L (3.6-5) 05/30/17 04:54 Chloride 105 MEQ/L (98-107) 05/30/17 04:54 Carbon Dioxide 28 MEQ/L (22-30) 05/30/17 04:54 Anion Gap 5 MEQ/L (5-15) 05/30/17 04:54 BUN 32.0 MG/DL (7-17) H 05/30/17 04:54 Creatinine 0.9 MG/DL (0.7-1.2) 05/30/17 04:54 GFR Calculation 69 05/30/17 04:54 BUN/Creatinine Ratio 36 RATIO (6-26) H 05/30/17 04:54 Glucose 93 MG/DL (65-110) 05/30/17 04:54 Glucometer 127 mg/dL (65-110) 05/29/17 22:04 Calculated Osmolality 273 MOSM/KG (261-280) 05/30/17 04:54 Uric Acid 3.6 MG/DL (2.5-7.5) 05/15/17 01:01 Calcium 8.0 MG/DL (8.4-10.2) L 05/30/17 04:54 Phosphorus 4.1 MG/DL (2.5-4.5) 05/30/17 04:54 Magnesium 2.1 MG/DL (1.6-2.3) 05/30/17 04:54 Total Bilirubin 0.90 MG/DL (0.20-1.30) 05/24/17 04:38 Icterus Index < 2 (0-7) 05/30/17 04:54 AST 45 U/L (14-36) H 05/24/17 04:38 ALT 44 U/L (9-52) 05/24/17 04:38 Alkaline Phosphatase 409 U/L (38-126) H 05/24/17 04:38 Total Protein 5.6 G/DL (6.3-8.2) L 05/24/17 04:38 Albumin 2.0 G/DL (3.5-5.0) L 05/24/17 04:38 Globulin 3.6 G/DL (2.4-3.6) 05/24/17 04:38 Albumin/Globulin Ratio 0.6 RATIO (1.1-2.2) L 05/24/17 04:38 Prealbumin 6.9 MG/DL (17.6-36.0) L 05/17/17 05:01 Plasma Lactate 2.6 MMOL/L (0.6-2.2) H 05/21/17 15:04 Procalcitonin 0.93 NG/ML 05/23/17 04:59 Specimen Hemolysis < 15 (0-25) 05/30/17 04:54 Intake and Output 05/29/17 05/30/17 05/31/17 06:59 06:59 06:59 Intake Total 3040.5 / 3040.5 2160 / 2160 Output Total 900 / 900 900 / 900 Balance 2140.5 / 2140.5 1260 / 1260 Intake: IV 2052.5 / 2052.5 1760 / 1760 Intralipid 20% 100 ml @ 100 / 100 50 mls/hr IV 1600 [facility] Rx# :[id number] Sodium Chloride Conc 4 1852.5 / 1852.5 1760 / 1760 Meq/ml Sodium Acetate 60 Meq KCl 40 Meq K Phos Inj 20 Meq Magnesium Sulfate Inj 16 Meq Calcium Gluconate 9.3 Meq Infuvite Adult 10 ml Multi-Trace Elements 1 ml Folate 2 mg Vitamin B-1 100 mg Potassium Acetate Inj 40 Meq/20 ml In TPN - Custom Formula 2,000 ml @ 75 mls/hr IV .Q24H [facility] Rx#:[id number] Tygacil 50 mg In Normal 100 / 100 Saline 100 ml @ 100 mls/ hr IV BID [facility] Rx#: [id number] Oral 988 / 988 400 / 400 Output: Stool 900 / 900 850 / 850 Emesis 50 / 50 Other: Urine Color Straw Urine Odor Normal Stool Color Brown Green Stool Consistency Liquid Emesis Description Clear # Voids 2 # Incontinent Voids 1 1 # Unmeasured Emesis 1 Episodes - Consult Information Lytes wnl. Will continue same formula. Thank you.
--- NOTE | 2017-05-30 08:56 | Progress Note ---
Subjective Date: 05/30/17 Subjective: Ms. Giron still complains of nausea. She states her abdominal pain is ok at the moment. She is urinating on her own. Denies any recent fevers or chills. Exam Vital Signs: Temperature 98.4 F 05/29/17 20:00 Pulse Rate 92 05/29/17 20:00 Respiratory Rate 14 05/29/17 20:00 Blood Pressure 103/62 05/29/17 20:00 Pulse Oximetry 97 05/29/17 20:00 Height/Weight/BMI: Height 1.57 m Weight 70.5 kg Body Mass Index 26.2 - Constitutional Present: no acute distress Comments: chronically ill-appearing - Routine HEENT Exam Head: Present: normocephalic, atraumatic Eye: Present: EOMI, PERRL ENT: Present: mucous membranes moist, dentition normal - Routine Neck Exam Present: supple - Routine Respiratory Exam Present: CTA bilaterally. Absent: wheezes - Routine Cardiovascular Exam Present: RRR. Absent: murmur - Routine Abdominal Exam Present: soft Comments: Hypoactive bowel sounds. Abdominal wound with wound manager of human resources on. No guarding. - Routine Extremities Exam Absent: cyanosis, clubbing, edema Comments: flexion contractures bilateral LEs - Routine Skin Exam Present: intact. Absent: rash - Routine Neurological Exam Present: alert, oriented X3, CN II-XII intact - Routine Psychiatric Exam Present: normal affect Results - Labs CBC & Chem 7: 05/27/17 04:28 05/30/17 04:54 Microbiology Results: Microbiology 05/21/17 05:09 Peripheral/Iv Start Blood Culture - Final No Growth After 5 Days 05/21/17 05:10 Peripheral/Iv Start Blood Culture - Final No Growth After 5 Days 05/22/17 10:27 Throat Group A Streptococcus Culture - Final No Group A Strep Isolated 05/21/17 05:01 Urine, Voided (Cc/notcc) Urine Culture - Final Klebsiella pneumoniae 05/14/17 22:43 Cath/Port/Line/Picc Blood Culture - Final No Growth After 5 Days 05/14/17 22:46 Cath/Port/Line/Picc Blood Culture - Final No Growth After 5 Days Impression: * Recent sepsis, NOS, likely secondary to pancreatic pseudocyst, unable to be drained on 05/01. * Intra-abdominal fluid collection (4.1 x 4.1 x 4.6cm) * Leukocytosis, improving * Nausea/vomiting, improved after stopping Tygacil. * Abdominal pain, chronic, but worse per patient. * H/o urine culture with >100K of Kleb. pneumoniae, ESBL positive, suspect colonization. * H/o rash on Merrem, Vancomycin, PCN, cephalosporins * H/o CLABSI with E. faecalis, s/p CVL removal 03/26, treated with Tygacil (due to allergies) through 04/09. 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 Recommendation: Recommend continued monitoring off antibiotics. Some of her nausea might be related to the Tygacil, however, she's been off it for a couple days. It might be related to other meds as well. Will sign off and see again at your request. Sepsis Assessment - Evaluation Sepsis screening result: No Definite Risk
[2017-05-30] MEDS: MICONAZOLE 2% POWDER 45gm TP SCH ×2 (10:11→21:16)
[2017-05-30] MEDS: ENOXAPARIN 40 MG/0.4 ML INJECTION SQ SCH (10:11)
[2017-05-30] MEDS: NYSTATIN 500,000 units/5 ml ORAL LIQUID PO SCH ×4 (10:12→21:18)
[2017-05-30] MEDS: ONDANSETRON ODT 4 MG TABLET PO PRN (10:12)
[2017-05-30] MEDS: Venlafaxine XR 37.5 MG CAPSULE (24hr) PO SCH (10:16)
[2017-05-30] MEDS: DICLOFENAC 1% TOP GEL 100gm TP SCH ×3 (10:17→16:34)
[2017-05-30] MEDS: CETIRIZINE 10 MG TABLET PO SCH (10:28)
[2017-05-30] MEDS: GABAPENTIN 100 MG CAPSULE PO SCH ×3 (10:52→21:17)
--- NOTE | 2017-05-30 11:03 | IRU Progress Note ---
- Subjective/Serverity of Illness I interviewed and examined Emilia today in her room. I was able to observe her transferring with therapist present. She was able to transfer reasonably well but was requiring verbal cueing. 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 However she is improving. She requires a lower bed then typical in order to transfer from her wheelchair. In addition she will require the ability to raise the head of her bed for comfort regarding her abdominal pain which is due to a large abdominal wound and pancreatic pseudocyst etc. 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 While she is improving, she will require a wheelchair at home. This will require the removal of armrests and foot rests at times. Continues to be nauseated. Appreciate input of Dr. Puente who has seen her regarding her infectious situation. Right now she is off antibiotics and remains afebrile. Most recent antibiotic was Tygacil for a UTI. Continues to have nausea and unclear if it related to the medication or not. She does complain of abdominal pain chronically but it is not worse than it has been. Update on medical issues as follows: 1. Pain management in view of her abdominal pain: Laura rates her pain as an 8 out of 10. Continues to be mainly on the left side of her abdomen. Pain medications have not been changed. She remains on the fentanyl patch 100 g every 3 days. We have made available oral morphine to be used only as needed twice daily. She is not using this every day. 2. 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 She is tolerating TPN. This is monitored by pharmacy as well. No evidence of central line infection at present. 3. UTI: Mills catheter remains. She has resolved from the UTI. No fever. 4. Recent hyponatremia - her sodium has remained normal at present. 5. 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 Patient and family will require ostomy teaching. In addition, they have chosen to use a home health agency in [place]. We are requesting the home health nurse come here for training in this regard. Exam Vital Signs: Temperature 98.4 F 05/29/17 20:00 Pulse Rate 92 05/29/17 20:00 Respiratory Rate 14 05/29/17 20:00 Blood Pressure 103/62 05/29/17 20:00 Pulse Oximetry 97 05/29/17 20:00 Height/Weight/BMI: Height 1.57 m Weight 70.5 kg Body Mass Index 26.2 Comments: The patient is awake, alert and oriented and is cooperating with therapy. Disc plan of abdominal pain and nausea. No emesis noted. Pupils are equal. The neck is supple. Chest: Clear to auscultation bilaterally. Cor: RR with no gallop, click nor murmur Abd: Abdomen is unchanged. There is leakage from the large abdominal open area. Extremities: No edema is noted. There is evidence of muscle atrophy and muscular weakness. However she is improving. Sepsis Assessment - Evaluation Sepsis screening result: No Definite Risk IRU A/P (1) Myopathy Problem details: Critical illness myopathy Current visit: Yes Status: Acute Patient displays evidence of critical illness myopathy. She does have muscle wasting/atrophy. There is muscle weakness. She is improving. She is able to transfer from wheelchair to a lower bed. The patient will require a hospital bed at home to adjust height as well as elevate the head of her bed for comfort from her abdominal wound and to prevent aspiration. The patient will also require a wheelchair at home with the option of removal armrests and foot rests. This is for the purpose of transferring. She is not able to ambulate at present. She is improving with regard to wheelchair propulsion. (2) Open abdominal wall wound Qualifiers: Encounter type: subsequent encounter Qualified Code(s): S31.109D - Unspecified open wound of abdominal wall, unspecified quadrant without penetration into peritoneal cavity, subsequent encounter Current visit: Yes Status: Chronic (3) Diabetes Qualifiers: Diabetes mellitus type: due to underlying condition Diabetes mellitus complication status: without complication Diabetes mellitus usp insulin use: without bed bug exterminator use Qualified Code(s): E08.9 - Diabetes mellitus due to underlying condition without complications Current visit: No Status: Chronic Her sugars have remained stable. (4) Protein-calorie malnutrition, moderate Current visit: Yes Status: Chronic Patient will need to remain on TPN long-term. (5) Ankle pain, right Qualifiers: Chronicity: acute Qualified Code(s): M25.571 - Pain in right ankle and joints of right foot Current visit: Yes Status: Resolved (6) UTI (urinary tract infection) Qualifiers: Urinary tract infection type: acute cystitis Hematuria presence: with hematuria Qualified Code(s): N30.01 - Acute cystitis with hematuria Current visit: Yes Status: Resolved Urinary tract infection with Klebsiella has been appropriately treated. Antibiotics have been discontinued and she remains afebrile. DVT Prophylaxis: Lovenox Resuscitation Status: Full Code - Course Hospital Course: Yevgeniy Woo MD: 05/08/17 10:09 Initiating physical therapy and occupational therapy. Patient is cooperative this morning. Complains of chronic abdominal pain. Limiting oral intake in an effort to reduce leakage from the wound and allow patient to participate in therapy. She would like to increase the restriction from 120 up to 150 ML per hour. This will be allowed. This is excluding intake at mealtime. We will leave a cup at her bedside and I asked her to simply sip on this and not take it all at once. She agreed to do this. White count 14,000 but without evidence of active infection. She remains afebrile. Pain management is with patches and oral agents only. 05/09/17 11:50 Continues to require significant encouragement to participate with therapy. Walked 6 ft. Abd pain is remaining as ongoing pain issue. Protein calorie malnutrition addressed with TPN. 05/10/17 11:19 She is making slow progress. White count improved to 13,000. Appreciate hospitalists assistance. Lower extremity dressing is improved. Walking distance improved. Transfers minimally improved. Significant concerns about patient motivation and safety awareness remains. Abdominal pain, nausea and vomiting impact her therapy progress. 05/14/17 10:48 Has multiple medical problems. Making very slow progress. Frequently refuses therapy or at least postpones it. Requires much encouragement to participate. Increased fentanyl patch in an effort to improve her pain management. Continues on TPN. White count improved to 12,000. 05/15/17 10:39 Continues to be very complex. Had poor urine output but responded to fluid bolus. Requires total assistance for many ADLs. Increase fentanyl patch 2-3 days ago. Hopefully that will provide additional pain improvement. White count is improved. Hemoglobin down at 7.1. Does have right ankle pain now which impedes her progress. 05/16/17 10:54 Continues on TPN. Hemoglobin improved at 7.6. White count remains relatively low for her at 11,000. Right ankle pain appears to virtually have resolved. MRI shows disuse osteoporosis only. No evidence of active infection nor inflammation. Seems to have a better attitude today. We will continue current pain management although we did discuss the possibility of oral morphine yesterday. If we do that she will probably be able to tolerate the morphine concentrate and a sublingual or a lingual route. However we will hold off for the time being. Continues to require close medical management of multiple medical conditions. 05/18/17 09:56 Appreciate assistance of infectious disease and hospitalist service. Low-grade fever of 99 but stable white count at 12,000. No evidence of infection and ID recommends no antibiotics at present. Continues to require a lot of encouragement for therapies but is slowly improving. She indicated she does want to get back home. She would like to eat more and again we recommended no advance in her diet due to recurrent nausea and vomiting. She requires close medical management for multiple medical conditions. 05/28/17 11:26 Remains afebrile New diagnosis of UTI with Klebsiella and is now on tigecycline. Followed by Dr. Puente. Tolerating TPN well. Chronic nausea States that she feels better today overall and has more energy. Continues to require a lot of encouragement for 05/29/17 11:44 Reports that she is nauseated. Remains on tigecycline for UTI with Klebsiella. Tolerating TPN well. Chronic abdominal pain noted. Continues to require significant encouragement. 05/30/17 11:06 Patient is able to transfer with standby assistance and occasionally contact- guard assistance. She is unable ambulate. She will need to be trained along with home health regarding the ostomy issues. Continue TPN. No change in pain medication. She will require a wheelchair and a hospital bed at home. - Interventions to Obtain Goals PT Treatment Plan: Balance/Proprioception, Functional Activities, Gait Training , Patient/Family Education, Therapeutic Exercise OT Treatment Plan: ADL (Basic Care), Balance Training, Pt./Family Education, UE Functional Training Goals Progress/Modifications: Multiple arrangements are being undertaken with regard to anticipated dismissal in the next several days.
[2017-05-30] MEDS ORDERED: FALL RISK - PHARMACY CONSULT MC PRN (11:37)
[2017-05-30] MEDS: INSULIN ASPART SQ PRN (12:31)
[2017-05-30] MEDS: PROMETHAZINE 25 MG INJECTION IVP PRN (15:10)
[2017-05-30] MEDS: SALINE FLUSH 10ml SYRINGE IV PRN (15:11)
[2017-05-30] MEDS: POTASSIUM CHLORIDE IV SCH (16:33)
[2017-05-30] MEDS: SODIUM CHLORIDE IV SCH (16:33)
[2017-05-30] MEDS: FAT EMULSION 20% 100 ML IV SCH (16:33)
[2017-05-30] MEDS: [UNRECOGNIZED DRUG - OTHER] IV SCH (16:33)
[2017-05-30] MEDS: SODIUM ACETATE IV SCH (16:33)
[2017-05-31] MEDS: DICLOFENAC 1% TOP GEL 100gm TP SCH ×5 (00:12→22:48)
[2017-05-31] MEDS: ONDANSETRON 4 MG/2 ML INJECTION IV PRN (01:51)
[2017-05-31] MEDS: Oxycodone *IR* 5 MG TABLET PO PRN ×4 (02:12→20:28)
--- NOTE | 2017-05-31 08:07 | Pharmacy Consult-TPN/PPN ---
Pharmacy Consult-TPN/PPN - Laboratory Information Chemistry Turbidity < 20 (0-20) 05/30/17 04:54 Sodium 138 MEQ/L (134-144) 05/30/17 04:54 Potassium 4.1 MEQ/L (3.6-5) 05/30/17 04:54 Chloride 105 MEQ/L (98-107) 05/30/17 04:54 Carbon Dioxide 28 MEQ/L (22-30) 05/30/17 04:54 Anion Gap 5 MEQ/L (5-15) 05/30/17 04:54 BUN 32.0 MG/DL (7-17) H 05/30/17 04:54 Creatinine 0.9 MG/DL (0.7-1.2) 05/30/17 04:54 GFR Calculation 69 05/30/17 04:54 BUN/Creatinine Ratio 36 RATIO (6-26) H 05/30/17 04:54 Glucose 93 MG/DL (65-110) 05/30/17 04:54 Glucometer 138 mg/dL (65-110) 05/31/17 06:18 Calculated Osmolality 273 MOSM/KG (261-280) 05/30/17 04:54 Uric Acid 3.6 MG/DL (2.5-7.5) 05/15/17 01:01 Calcium 8.0 MG/DL (8.4-10.2) L 05/30/17 04:54 Phosphorus 4.1 MG/DL (2.5-4.5) 05/30/17 04:54 Magnesium 2.1 MG/DL (1.6-2.3) 05/30/17 04:54 Total Bilirubin 0.90 MG/DL (0.20-1.30) 05/24/17 04:38 Icterus Index < 2 (0-7) 05/30/17 04:54 AST 45 U/L (14-36) H 05/24/17 04:38 ALT 44 U/L (9-52) 05/24/17 04:38 Alkaline Phosphatase 409 U/L (38-126) H 05/24/17 04:38 Total Protein 5.6 G/DL (6.3-8.2) L 05/24/17 04:38 Albumin 2.0 G/DL (3.5-5.0) L 05/24/17 04:38 Globulin 3.6 G/DL (2.4-3.6) 05/24/17 04:38 Albumin/Globulin Ratio 0.6 RATIO (1.1-2.2) L 05/24/17 04:38 Prealbumin 6.9 MG/DL (17.6-36.0) L 05/17/17 05:01 Plasma Lactate 2.6 MMOL/L (0.6-2.2) H 05/21/17 15:04 Procalcitonin 0.93 NG/ML 05/23/17 04:59 Specimen Hemolysis < 15 (0-25) 05/30/17 04:54 Intake and Output 05/30/17 05/31/17 06/01/17 06:59 06:59 06:59 Intake Total 2260 / 2260 2007.75 / 2007.75 Output Total 900 / 900 1050 / 1050 1000 / 1000 Balance 1360 / 1360 958.75 / 958.75 -1000 / -1000 Intake: IV 1860 / 1860 1858.75 / 1858.75 Intralipid 20% 100 ml @ 100 / 100 50 mls/hr IV 1600 [facility] Rx# :[id number] Sodium Chloride Conc 4 1760 / 1760 1858.75 / 1858.75 Meq/ml Sodium Acetate 60 Meq KCl 40 Meq K Phos Inj 20 Meq Magnesium Sulfate Inj 16 Meq Calcium Gluconate 9.3 Meq Infuvite Adult 10 ml Multi-Trace Elements 1 ml Folate 2 mg Vitamin B-1 100 mg Potassium Acetate Inj 40 Meq/20 ml In TPN - Custom Formula 2,000 ml @ 75 mls/hr IV .Q24H [facility] Rx#:[id number] Oral 400 / 400 150 / 150 Output: Stool 850 / 850 1050 / 1050 1000 / 1000 Emesis 50 / 50 Other: Urine Color Light Miranda Urine Odor Normal Stool Color Brown Brown Brown Green Green Green Stool Consistency Liquid Liquid Liquid Emesis Description Clear # Voids 2 # Incontinent Voids 1 # Unmeasured Emesis 1 Episodes - Consult Information Will continue current formula of TPN. Thank you.
[2017-05-31] MEDS: PROMETHAZINE 25 MG INJECTION IVP PRN (08:29)
[2017-05-31] MEDS: CETIRIZINE 10 MG TABLET PO SCH (10:08)
[2017-05-31] MEDS: GABAPENTIN 100 MG CAPSULE PO SCH ×3 (10:08→22:48)
[2017-05-31] MEDS: ENOXAPARIN 40 MG/0.4 ML INJECTION SQ SCH (10:10)
[2017-05-31] MEDS: NYSTATIN 500,000 units/5 ml ORAL LIQUID PO SCH ×4 (10:11→22:48)
[2017-05-31] MEDS: MICONAZOLE 2% POWDER 45gm TP SCH ×2 (10:16→22:48)
[2017-05-31] MEDS: Venlafaxine XR 37.5 MG CAPSULE (24hr) PO SCH (11:18)
[2017-05-31] MEDS: POTASSIUM CHLORIDE IV SCH (18:04)
[2017-05-31] MEDS: SODIUM ACETATE IV SCH (18:04)
[2017-05-31] MEDS: SODIUM CHLORIDE IV SCH (18:04)
[2017-05-31] MEDS: [UNRECOGNIZED DRUG - OTHER] IV SCH (18:04)
[2017-05-31] MEDS: FAT EMULSION 20% 100 ML IV SCH (18:05)
[2017-06-01] MEDS: PROMETHAZINE 25 MG INJECTION IVP PRN ×2 (02:48→20:52)
[2017-06-01] MEDS: Oxycodone *IR* 5 MG TABLET PO PRN ×3 (02:48→21:22)
[2017-06-01] MEDS: ONDANSETRON 4 MG/2 ML INJECTION IV PRN (09:18)
--- NOTE | 2017-06-01 09:54 | Pharmacy Consult-TPN/PPN ---
Pharmacy Consult-TPN/PPN - Laboratory Information Chemistry Turbidity < 20 (0-20) 06/01/17 05:12 Sodium 138 MEQ/L (134-144) 06/01/17 05:12 Potassium 4.3 MEQ/L (3.6-5) 06/01/17 05:12 Chloride 104 MEQ/L (98-107) 06/01/17 05:12 Carbon Dioxide 28 MEQ/L (22-30) 06/01/17 05:12 Anion Gap 6 MEQ/L (5-15) 06/01/17 05:12 BUN 36.0 MG/DL (7-17) H 06/01/17 05:12 Creatinine 0.9 MG/DL (0.7-1.2) 06/01/17 05:12 GFR Calculation 69 06/01/17 05:12 BUN/Creatinine Ratio 40 RATIO (6-26) H 06/01/17 05:12 Glucose 89 MG/DL (65-110) 06/01/17 05:12 Glucometer 129 mg/dL (65-110) 06/01/17 06:38 Calculated Osmolality 273 MOSM/KG (261-280) 06/01/17 05:12 Uric Acid 3.6 MG/DL (2.5-7.5) 05/15/17 01:01 Calcium 8.2 MG/DL (8.4-10.2) L 06/01/17 05:12 Phosphorus 4.4 MG/DL (2.5-4.5) 06/01/17 05:12 Magnesium 2.0 MG/DL (1.6-2.3) 06/01/17 05:12 Total Bilirubin 0.90 MG/DL (0.20-1.30) 05/24/17 04:38 Icterus Index < 2 (0-7) 06/01/17 05:12 AST 45 U/L (14-36) H 05/24/17 04:38 ALT 44 U/L (9-52) 05/24/17 04:38 Alkaline Phosphatase 409 U/L (38-126) H 05/24/17 04:38 Total Protein 5.6 G/DL (6.3-8.2) L 05/24/17 04:38 Albumin 2.0 G/DL (3.5-5.0) L 05/24/17 04:38 Globulin 3.6 G/DL (2.4-3.6) 05/24/17 04:38 Albumin/Globulin Ratio 0.6 RATIO (1.1-2.2) L 05/24/17 04:38 Prealbumin 6.9 MG/DL (17.6-36.0) L 05/17/17 05:01 Plasma Lactate 2.6 MMOL/L (0.6-2.2) H 05/21/17 15:04 Procalcitonin 0.93 NG/ML 05/23/17 04:59 Specimen Hemolysis < 15 (0-25) 06/01/17 05:12 Intake and Output 05/31/17 06/01/17 06/02/17 06:59 06:59 06:59 Intake Total 2108.75 / 2108.75 2933.75 / 2933.75 Output Total 1050 / 1050 2900 / 2900 Balance 1058.75 / 1058.75 33.75 / 33.75 Intake: IV 1958.75 / 1958.75 1913.75 / 1913.75 Intralipid 20% 100 ml @ 100 / 100 50 mls/hr IV 1600 [facility] Rx# :[id number] Sodium Chloride Conc 4 1858.75 / 1858.75 1913.75 / 1913.75 Meq/ml Sodium Acetate 60 Meq KCl 40 Meq K Phos Inj 20 Meq Magnesium Sulfate Inj 16 Meq Calcium Gluconate 9.3 Meq Infuvite Adult 10 ml Multi-Trace Elements 1 ml Folate 2 mg Vitamin B-1 100 mg Potassium Acetate Inj 40 Meq/20 ml In TPN - Custom Formula 2,000 ml @ 75 mls/hr IV .Q24H [facility] Rx#:[id number] Oral 150 / 150 1020 / 1020 Output: Stool 1050 / 1050 2900 / 2900 Other: Urine Color Light Miranda Urine Odor Normal Stool Color Brown Brown Green Green Stool Consistency Liquid Liquid # Voids 1 # Incontinent Voids 1 - Consult Information We will continue same custom TPN formula at 75mL per hour. Thanks
[2017-06-01] MEDS: MICONAZOLE 2% POWDER 45gm TP SCH ×2 (10:24→21:16)
[2017-06-01] MEDS: ENOXAPARIN 40 MG/0.4 ML INJECTION SQ SCH (10:24)
[2017-06-01] MEDS: NYSTATIN 500,000 units/5 ml ORAL LIQUID PO SCH ×3 (10:24→18:57)
[2017-06-01] MEDS: Venlafaxine XR 37.5 MG CAPSULE (24hr) PO SCH (10:35)
[2017-06-01] MEDS: GABAPENTIN 100 MG CAPSULE PO SCH ×3 (10:35→21:22)
[2017-06-01] MEDS: CETIRIZINE 10 MG TABLET PO SCH (10:37)
--- NOTE | 2017-06-01 10:59 | IRU Progress Note ---
- Subjective/Serverity of Illness I discussed with Laura at length her thoughts about going home next week. She is somewhat anxious but also looking forward to it. She states that she thinks things will go okay. Multiple interactions have occurred with regard to arrangements for her going home. We have ordered appropriate durable medical equipment in terms of a hospital bed, wheelchair etc. In addition we are ordering a suction device ( vacuum aid) for the open abdominal wound. We've arranged for TPN. Home health has been instructed by our wound care nurse via Skype or Facetime. They seem to be very competent and are able to assist patient adequately and safely. Laura continues to have some nausea and dry heaves. This is chronic for her. She has remained afebrile and without any evidence of infection actively at the present time. She remains on TPN for her chronic protein calorie malnutrition. Pain control has been relatively stable. Exam Vital Signs: Temperature 98.7 F 06/01/17 09:00 Pulse Rate 111 H 06/01/17 09:00 Respiratory Rate 20 06/01/17 09:00 Blood Pressure 101/68 06/01/17 09:00 Pulse Oximetry 96 06/01/17 09:00 Height/Weight/BMI: Height 1.57 m Weight 70.5 kg Body Mass Index 26.2 Comments: The patient is awake, alert and oriented and in no acute distress. Seems to be comfortable and is positively looking forward to going home although with some degree of anxiety. Pupils are equal. The neck is supple. Chest: Clear to auscultation bilaterally. Cor: RR with no gallop, click nor murmur Abd: No change in appearance of abdomen at present. Did not fully examine the abdomen today as she was sitting up in a wheelchair however. Extremities: No edema is noted. Neurologically she is intact. Has equal strength bilaterally. There continues to be evidence of critical illness myopathy but she is improved. Results IRU - Labs Labs: I reviewed her labs from today. Continues to have anemia of chronic disease but all labs are stable. Sepsis Assessment - Evaluation Sepsis screening result: No Definite Risk IRU A/P (1) Myopathy Problem details: Critical illness myopathy Current visit: Yes Status: Acute Patient has critical illness myopathy with slow improvement. She is improving with therapies. She is safe to go home from a therapy standpoint. (2) Open abdominal wall wound Qualifiers: Encounter type: subsequent encounter Qualified Code(s): S31.109D - Unspecified open wound of abdominal wall, unspecified quadrant without penetration into peritoneal cavity, subsequent encounter Current visit: Yes Status: Chronic Arrangements are made for ostomy management as well as suction drainage of the abdominal wound. (3) Diabetes Qualifiers: Diabetes mellitus type: due to underlying condition Diabetes mellitus complication status: without complication Diabetes mellitus dedicated intermodal truck driver insulin use: without dedicated intermodal truck driver use Qualified Code(s): E08.9 - Diabetes mellitus due to underlying condition without complications Current visit: No Status: Chronic (4) Protein-calorie malnutrition, moderate Current visit: Yes Status: Chronic Patient will need to remain on TPN for the indefinite future. If further surgeries are possible and reestablishment of a functional GI tract is a potential, then perhaps she can taper off this at some point. However that is quite a ways down the road. (5) Ankle pain, right Qualifiers: Chronicity: acute Qualified Code(s): M25.571 - Pain in right ankle and joints of right foot Current visit: Yes Status: Resolved (6) UTI (urinary tract infection) Qualifiers: Urinary tract infection type: acute cystitis Hematuria presence: with hematuria Qualified Code(s): N30.01 - Acute cystitis with hematuria Current visit: Yes Status: Resolved DVT Prophylaxis: Lovenox Resuscitation Status: Full Code - Course Hospital Course: Yevgeniy Woo MD: 05/08/17 10:09 Initiating physical therapy and occupational therapy. Patient is cooperative this morning. Complains of chronic abdominal pain. Limiting oral intake in an effort to reduce leakage from the wound and allow patient to participate in therapy. She would like to increase the restriction from 120 up to 150 ML per hour. This will be allowed. This is excluding intake at mealtime. We will leave a cup at her bedside and I asked her to simply sip on this and not take it all at once. She agreed to do this. White count 14,000 but without evidence of active infection. She remains afebrile. Pain management is with patches and oral agents only. 05/09/17 11:50 Continues to require significant encouragement to participate with therapy. Walked 6 ft. Abd pain is remaining as ongoing pain issue. Protein calorie malnutrition addressed with TPN. 05/10/17 11:19 She is making slow progress. White count improved to 13,000. Appreciate hospitalists assistance. Lower extremity dressing is improved. Walking distance improved. Transfers minimally improved. Significant concerns about patient motivation and safety awareness remains. Abdominal pain, nausea and vomiting impact her therapy progress. 05/14/17 10:48 Has multiple medical problems. Making very slow progress. Frequently refuses therapy or at least postpones it. Requires much encouragement to participate. Increased fentanyl patch in an effort to improve her pain management. Continues on TPN. White count improved to 12,000. 05/15/17 10:39 Continues to be very complex. Had poor urine output but responded to fluid bolus. Requires total assistance for many ADLs. Increase fentanyl patch 2-3 days ago. Hopefully that will provide additional pain improvement. White count is improved. Hemoglobin down at 7.1. Does have right ankle pain now which impedes her progress. 05/16/17 10:54 Continues on TPN. Hemoglobin improved at 7.6. White count remains relatively low for her at 11,000. Right ankle pain appears to virtually have resolved. MRI shows disuse osteoporosis only. No evidence of active infection nor inflammation. Seems to have a better attitude today. We will continue current pain management although we did discuss the possibility of oral morphine yesterday. If we do that she will probably be able to tolerate the morphine concentrate and a sublingual or a lingual route. However we will hold off for the time being. Continues to require close medical management of multiple medical conditions. 05/18/17 09:56 Appreciate assistance of infectious disease and hospitalist service. Low-grade fever of 99 but stable white count at 12,000. No evidence of infection and ID recommends no antibiotics at present. Continues to require a lot of encouragement for therapies but is slowly improving. She indicated she does want to get back home. She would like to eat more and again we recommended no advance in her diet due to recurrent nausea and vomiting. She requires close medical management for multiple medical conditions. 05/28/17 11:26 Remains afebrile New diagnosis of UTI with Klebsiella and is now on tigecycline. Followed by Dr. Puente. Tolerating TPN well. Chronic nausea States that she feels better today overall and has more energy. Continues to require a lot of encouragement for 05/29/17 11:44 Reports that she is nauseated. Remains on tigecycline for UTI with Klebsiella. Tolerating TPN well. Chronic abdominal pain noted. Continues to require significant encouragement. 05/30/17 11:06 Patient is able to transfer with standby assistance and occasionally contact- guard assistance. She is unable ambulate. She will need to be trained along with home health regarding the ostomy issues. Continue TPN. No change in pain medication. She will require a wheelchair and a hospital bed at home. 06/01/17 11:00 Appreciate hospitalists input. Pain is adequately controlled. Still has dry heaves but this is chronic. Multiple arrangements have been undertaken to ensure a safe transition to her home environment. We have arranged for home durable medical equipment including a hospital bed, vacuum device for suction, wheelchair, ostomy supplies etc. In addition we have arranged for home TPN. Patient is stable for dismissal early next week. - Interventions to Obtain Goals PT Treatment Plan: Balance/Proprioception, Functional Activities, Gait Training , Patient/Family Education, Therapeutic Exercise OT Treatment Plan: ADL (Basic Care), Balance Training, Pt./Family Education, UE Functional Training Goals Progress/Modifications: Time spent with patient and on floor reviewing data and documentin min Barriers to dismissal: Patient and family education regarding management of ostomy and other medical conditions. Medical decision-making: We spent considerable time with the patient and her as well as with nursing and care management in arranging her safe transfer to home early next week. Multiple issues are involved including monitoring of her TPN, pain management, nausea, instruction in ostomy etc.
[2017-06-01] MEDS: DICLOFENAC 1% TOP GEL 100gm TP SCH ×4 (11:29→21:27)
[2017-06-01] MEDS: INSULIN ASPART SQ PRN (11:30)
--- NOTE | 2017-06-01 12:31 | Wound Care Progress Note ---
Wound Center Progress Note: Late Entry 05/31/17 1500. In to see pt and , also Home Health on Facetime so that all could be instructed on the treatment and pouching system of her fistula. Also step by step pictures taken and printed for pt's and home health to use as a reference. Pt refused to participate in observation or instructions. watched and listened. Also at this time discussed options for care if the suction leaked, or there was leakage from the pouching system. verbalized being fearful of caring for this pouch by himself. Pt was not involved the whole 40 mins of care and instruction.
--- NOTE | 2017-06-01 14:41 | Progress Note ---
Subjective: Lay is seen this afternoon working with occupational therapy, getting in and out of the bed. She reports that earlier today she worked on getting in and out of the car, which was a very distant difficult task and "about killed her". Overall, she denies having any new pains feeling short of breath or nausea. She remains afebile, Vital signs stable. Objective Vital signs: Temperature 98.7 F 06/01/17 09:00 Pulse Rate 111 H 06/01/17 09:00 Respiratory Rate 20 06/01/17 09:00 Blood Pressure 101/68 06/01/17 09:00 Pulse Oximetry 96 06/01/17 09:00 Height/Weight/BMI: Height 1.57 m Weight 70.5 kg Body Mass Index 26.2 - Constitutional Present: no acute distress, well nourished, well developed - Routine HEENT Exam Eye: Present: EOMI ENT: Present: mucous membranes moist, dentition normal - Routine Respiratory Exam Present: CTA bilaterally. Absent: wheezes - Routine Cardiovascular Exam Present: RRR, S1, S2. Absent: murmur - Routine Abdominal Exam Present: soft, normoactive bowel sounds, non distended. Absent: tenderness Comments: Wound dressing intact and to suction - Routine Extremities Exam Present: normal capillary refill - Routine Skin Exam Present: dry, warm - Routine Neurological Exam Present: alert, oriented X3, CN II-XII intact - Routine Lymphatic Exam Lymphatic: Absent: adenopathy - Routine Psychiatric Exam Present: normal affect Results - Labs CBC & Chem 7: 06/01/17 05:12 06/01/17 05:12 Microbiology Results: Microbiology 05/21/17 05:09 Peripheral/Iv Start Blood Culture - Final No Growth After 5 Days 05/21/17 05:10 Peripheral/Iv Start Blood Culture - Final No Growth After 5 Days 05/22/17 10:27 Throat Group A Streptococcus Culture - Final No Group A Strep Isolated 05/21/17 05:01 Urine, Voided (Cc/notcc) Urine Culture - Final Klebsiella pneumoniae 05/14/17 22:43 Cath/Port/Line/Picc Blood Culture - Final No Growth After 5 Days 05/14/17 22:46 Cath/Port/Line/Picc Blood Culture - Final No Growth After 5 Days Assessment and Plan (1) Open abdominal wall wound Current visit: Yes Status: Chronic (2) Myopathy Problem details: Critical illness myopathy Current visit: Yes Status: Acute Assessment and Plan: Assessment Generalized debility and myopathy secondary to prolonged illness and hospitalizations. Recent sepsis secondary to E. faecalis CLABSI and recurrent peritonitis due to enteric leak. Klebsiella UTI - started Tygacil 05/21/17. Urinary retention - repeated need for Christine Leukocytosis, persistent. Thrombocytosis 05/19 Elevated BUN - improving. Hx of recurrent UTI from volume depletion. RLE - erythema - improved TPN use with intermittent electrolyte imbalances. LFT elevation, possibly from TPN Anemia of chronic disease. S/P PRBC transfusion. Moderate protein calorie malnutrition. Hypertension - blood pressures are frequently low-normal. Diabetes vs TPN-induced hyperglycemia. 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 Luu/Dr. Omar Brown) Decubitus ulcer, coccyx. Wound care consulted. Pancreatic pseudocyst, chronic. Unsuccessful attempt for endoscopic cyst gastrostomy for drainage on 05/01/17. Metastatic neuroendocrine tumor, s/p resection, chronic. R ankle pain, disuse osteoporosis on MRI 06/01/17- Plan Overall doing well. Continues to work hard with therapy. Hemoglobin is stable at 9.4, last transfusion was on 05/22/17 Overall blood sugars appear to be well controlled, fasting blood sugar this morning was 89. Continue with wound care Lovenox subcutaneous daily for DVT prophylaxis Planning for discharge- Likely early next week Sepsis Assessment - Evaluation Sepsis screening result: No Definite Risk Hospital Course Summary Disclaimer: The visit summary below is not to be considered part of the above Progress Note. Hospital Course: 05/09/17 10:24 Impression: Generalized debility and myopathy secondary to prolonged hospitalizations, acute. * Continue to encourage participation in therapies as patient's goal is to return home with the ability to dress self and ambulate short distances. Therapy reports that she has been doing well and was able to walk 6 steps yesterday. Continue to provide safe and supportive environment. Recent sepsis secondary to E. faecalis CLABSI and recurrent peritonitis due to enteric leak, acute. * Continue tigecycline per Dr. Lewis, to be completed on 05/19. Will discontinue Christine catheter today. Will provide a commode initially to encourage successful toileting until patient strength and endurance improved. Leukocytosis, persistent, present on admission. * WBC on admission 14.4. Continue to monitor trends periodically throughout admission. Patient remains afebrile and WBC trending down as compared to prior recent labs from previous admission. Recheck CBC in AM to monitor blood count trends. Hyperphosphoremia, acute. * Phosphorus elevated at 4.9. Pharmacy notified and will adjust TPN. Will recheck in AM as well as BMP to monitor electrolytes and renal function and continue to monitor trends. Anemia, chronic secondary to chronic disease. * Present on admission with hemoglobin 9.3. Improved from prior admissions. Monitor periodically throughout admission. Moderate protein calorie malnutrition, chronic. * Prealbumin 8.5 on admission. Continue TPN per pharmacy. As patient continues to vomit with large amounts of fluids orally, recommend providing no more than 150cc liquid at a time and encourage slow, small, frequent sips. Encourage boost as able. Hypertension, chronic. * Blood pressures well controlled and borderline low at times. Continue to monitor closely. Diabetes, chronic. * Continue to monitor BGMs, especially in light of TPN. Sliding scale insulin as indicated. Intractable abdominal pain and nausea with draining abdominal wound, chronic. * Pain control per Dr. Woo. Continue Zofran and Phenergan for nausea/ vomiting. Decubitus ulcer, coccyx, chronic. * Wound care team to continue to monitor. Monitor closely for signs of worsening. Continue to encourage patient to do position adjustments frequently , at least Q2 hours. Pancreatic pseudocyst, chronic. * Unsuccessful attempt for endoscopic cyst gastrostomy for drainage on 05/01/17. Metastatic neuroendocrine tumor, s/p resection, chronic. 05/09/2017-I reviewed this chart, the patient history, and the TRAVELING OPERATOR's/PA's documented findings as above. We discussed and formulated the assessment and plan as above with the additions below. I've seen and examined the patient independently.-Dr. Olivier The patient states that she is doing okay. She is having some chronic abdominal pain but it is better this evening. She denies any shortness of breath or chest pain. She denies any current nausea. Christine catheter was removed and at the time that I saw her she had not urinated, but afterward she did have a large incontinence of urine. Bladder scan afterward showed about 150 ML's of urine present. She does not have bowel movements since she is nothing by mouth except for fluids. Vital signs were reviewed. She has a borderline mild tachycardia which on review of [facility] records was present there as well. She has not had any fever. Blood pressure is okay. On exam the patient is mildly drowsy but in no acute distress. Oropharynx is moist. Neck is supple. Chest is clear to auscultation. Cardiovascular reveals a regular rhythm and a borderline tachycardic rate. Abdomen reveals an open abdominal wound with a clear dressing. There is some yellowish drainage. Extremities are free of edema. SCDs are in place. Regarding sepsis, continue current antibiotics. Regarding the patient's recent sepsis likely from abdominal source, will consult Dr. Puente to see the patient on Sunday. We'll continue to monitor white count. Continue TPN for malnutrition. Continue to monitor hemoglobin regarding anemia. Regarding acute kidney injury, the patient was seeing Dr. Massimo Pina at via [facility]. Her BUN over the past week was ranging from 59-85. I did discontinue ibuprofen that was started here to prevent worsening of acute kidney injury. We' ll need to monitor renal function and fluid status carefully, especially with Christine catheter out. 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 I did discuss the importance of accurate I&O's as much as is possible with her incontinence We'll monitor vital signs frequently and call parameters were placed We'll continue to monitor lab work fairly frequently. 05/12/2017--Dr. 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 The patient also had a new intra-abdominal fluid collection at that time that was 4.1 x 4.1 x 4.6 cm.-the patient has received 3 weeks of tigecycline. Decision made by Dr. Puente/Dr. Lewis of ID on 05/11 to hold further tigecycline. WBC decreased today. Leukocytosis, improved to 14K today, monitoring. Chronic anemia, Hb 7.7, may need PRBC if continued decline. Elevated BUN-trending down Protein calorie malnutrition-requiring TPN with planned terminal computer operator need, adjusting per pharmacy Hypertension Diabetes? Versus hyperglycemia from TPN--well controlled currently Chronic abdominal pain secondary to open abdominal wound and pancreatic pseudocyst--suspect not absorbing the po meds well, pain not controlled Decubitus ulcer Pancreatic pseudocyst with unsuccessful attempt for endoscopic cyst stress study on 05/01/2017 History of metastatic neuroendocrine tumor, status post resection History of recurrent acute kidney injury secondary to volume depletion from high output abdominal drainage Debility secondary to prolonged illness Plan Severe pain today and not really able to participate with therapy Not likely absorbing the po meds well, unit policy precludes IV narcotics, d/w Dr. Woo and will increase fentanyl patch to 100 mcg and monitor for improvement with that change. Continue TPN, will increase K and discuss with pharmacy re: total volume in the setting of high drain outputs. Hold further saline today unless evidence of volume depletion, overall volume status appears stable although difficult to assess in her. Recheck CBC, renal panel in AM and CMP Sunday. Continue to encourage participation with therapy. 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 The patient also had a new intra-abdominal fluid collection at that time that was 4.1 x 4.1 x 4.6 cm.-the patient has received 3 weeks of tigecycline. Decision made by Dr. Puente/Dr. Lewis of ID on 05/11 to hold further tigecycline. WBC decreased again today. Afebrile Leukocytosis, improved to 12K today, monitoring. Chronic anemia, Hb 7.5, may need PRBC if continued decline. Elevated BUN-trending down daily, no evidence of intravascular depletion, off saline currently Protein calorie malnutrition-requiring TPN with planned shelter need, adjusting per pharmacy, electrolytes stable today Hypertension per history, recent BP marginal in the 90-100 range systolic Diabetes? Versus hyperglycemia from TPN--well controlled currently Chronic abdominal pain secondary to open abdominal wound and pancreatic pseudocyst--suspect not absorbing the po meds well, pain not controlled Decubitus ulcer Pancreatic pseudocyst with unsuccessful attempt for endoscopic cyst stress study on 05/01/2017 History of metastatic neuroendocrine tumor, status post resection History of recurrent acute kidney injury secondary to volume depletion from high output abdominal drainage, volume status stable currently Debility secondary to prolonged illness Plan Continue with current pain control regimen, will defer any further changes to Dr. Woo, comfortable when resting Not likely absorbing the po meds well but has fentanyl patch, increased to 100 mcg on 05/12, monitor Hold any medications that would drop her blood pressure and monitor for signs of infection Continue TPN per pharmacy Hold further saline today unless evidence of volume depletion, labs and exam stable CBC, CMP in AM Continue to encourage participation with therapy. 05/15/17 Plan Continue with current pain control regimen, will defer any further changes to Dr. Woo, comfortable when resting Cory area of erythema to monitor of evidence of extension. Discussed with OT regarding assessing if there is any irritation or rubbing on the right rivas with patient's leg brace. Will evaluate if more padding as needed. Patient verbalizes this area of her leg is so uncomfortable. She is unable to work with therapy or stand. Regarding increased fever overnight, blood cultures have been drawn and are preliminary negative. Will continue to monitor. Leukocytosis remained stable and is trending down. Continue to monitor hemoglobin as this is slightly decreased, likely secondary to dilution given IV fluids overnight. Continue with wound care. Continue to encourage work with PT and OT for ongoing strengthening Plan- 05/16/17 Erythema of RLE is gone and pain has greatly improved. MRI of the Right ankle was obtained and reveled diffuse osteoporosis with mild subQ edema. Since the erythema has improved will hold off on any antibiotic treatment. She has remained afebrile and WBC count remains stable. Appreciated recommendations by Dr Puente to avoid antibiotics if possible. Appreciate Dr Gayle consultation for further recommendations. Continue with TPN for nutrition. Carefully monitor electrolytes. 05/19/17 Leukocytosis persistent but stable; abx continue to hold. Remains afebrile. BP have remained low but stable; MAP >65 mm Hg. Hgb up to 7.9; thrombocytosis also noted in 05/20/17 Pain remains a major concern of pt. She continues on Fentanyl 100mcg/PRN oxycodone/PRN Morphine BID. Will add TID Gabapentin elixer. Consider adding Cymbalta for pain control and anxiety once we see how she is tolerating gabapentin. Continue TPN, pharmacy following. Continue monitoring labs/accu checks. Consider bladder training to DC christine. Persistent leukocytosis with reactive thrombocytosis- consider repeating CT scan if she becomes febrile. Continue strengthening exercises. 05/21/17 Fever of 101.3 this am. WBC up to 15. BC sent. UA positive with sample from catheter - culture was sent. Will check CXR due to SOA. Platelets up to 510. Dr. Puente is planning on re-evaluating her today. Will check lactate and procalcitonin. ?Repeat CT? Continue pain control; change gabapentin to pill but we may need to revert back to elixer if ineffective. BUN and creatinine are trending up - will give 1L NS. Continue bladder retraining. LFTs increasing - could be related to TPN. 05/22/17 Recurrent fever since 05/21/17. Night doctors gave her a one-time dose of tigecycline after temp increased again to 101. UA and BC show no growth after 1 day. CXR was negative. Swab throat for strep. Discussed with Dr. Puente - CT soft tissue of neck. Continue tigecycline. Hgb decreased to 6.9 - repeat now. May need transfusion. She received a liter of NS yesterday. Will give 1 more liter today. BP has been low to low-normal, which is typical for her. Continue TPN. Monitor for fluid overload since she's getting some extra IVF. 05/23/17-plan Continue to monitor gastric output. It is dark brown in nature. On evaluation of abdominal wound. No evidence of acute bleeding. Will continue to follow routine serum hemoglobin level. She did receive a blood transfusion yesterday. His hemoglobin did dip down to 6.9. Hemoglobin this morning is stable at 9.0. Return of mild hypokalemia. Will give a one-time dose of oral potassium supplementation. Strep throat swab remains negative. Oral nystatin ordered. Urine culture continues to reveal Klebsiella, which has been chronic for her. She continues on Tigecycline IV. 05/24/17 Klebsiella UTI - discussed with Dr. Puente. Complete 7-day course of Tygacil ( through 05/27/17). Remove Christine tomorrow am and monitor PVR. Hgb stable at 8.7 s/p PRBC transfusion on 05/22/17. Hypokalemia - K up to 3.8. 05/28/17 Klebsiella UTI - completed 7-day course of Tygacil. Christine has been out for a few days. Hgb improved to 9.0 - s/p PRBC transfusion on 05/22/17. She's been refusing Nystatin (makes her vomit) - she will let us know if her sore throat becomes worse. Consider Diflucan. 9/1/17 Overall doing well. Continues to work hard with therapy. Hemoglobin is stable at 9.4, last transfusion was on 05/22/17 Overall blood sugars appear to be well controlled, fasting blood sugar this morning was 89. Continue with wound care Lovenox subcutaneous daily for DVT prophylaxis Planning for discharge- Likely early next week
[2017-06-01] MEDS: SODIUM CHLORIDE IV SCH (16:10)
[2017-06-01] MEDS: [UNRECOGNIZED DRUG - OTHER] IV SCH (16:10)
[2017-06-01] MEDS: SODIUM ACETATE IV SCH (16:10)
[2017-06-01] MEDS: POTASSIUM CHLORIDE IV SCH (16:10)
[2017-06-01] MEDS: FAT EMULSION 20% 100 ML IV SCH (16:10)
--- NOTE | 2017-06-02 07:54 | Pharmacy Consult-TPN/PPN ---
Pharmacy Consult-TPN/PPN - Laboratory Information Chemistry Turbidity < 20 (0-20) 06/01/17 05:12 Sodium 138 MEQ/L (134-144) 06/01/17 05:12 Potassium 4.3 MEQ/L (3.6-5) 06/01/17 05:12 Chloride 104 MEQ/L (98-107) 06/01/17 05:12 Carbon Dioxide 28 MEQ/L (22-30) 06/01/17 05:12 Anion Gap 6 MEQ/L (5-15) 06/01/17 05:12 BUN 36.0 MG/DL (7-17) H 06/01/17 05:12 Creatinine 0.9 MG/DL (0.7-1.2) 06/01/17 05:12 GFR Calculation 69 06/01/17 05:12 BUN/Creatinine Ratio 40 RATIO (6-26) H 06/01/17 05:12 Glucose 89 MG/DL (65-110) 06/01/17 05:12 Glucometer 128 mg/dL (65-110) 06/02/17 06:07 Calculated Osmolality 273 MOSM/KG (261-280) 06/01/17 05:12 Uric Acid 3.6 MG/DL (2.5-7.5) 05/15/17 01:01 Calcium 8.2 MG/DL (8.4-10.2) L 06/01/17 05:12 Phosphorus 4.4 MG/DL (2.5-4.5) 06/01/17 05:12 Magnesium 2.0 MG/DL (1.6-2.3) 06/01/17 05:12 Total Bilirubin 0.90 MG/DL (0.20-1.30) 05/24/17 04:38 Icterus Index < 2 (0-7) 06/01/17 05:12 AST 45 U/L (14-36) H 05/24/17 04:38 ALT 44 U/L (9-52) 05/24/17 04:38 Alkaline Phosphatase 409 U/L (38-126) H 05/24/17 04:38 Total Protein 5.6 G/DL (6.3-8.2) L 05/24/17 04:38 Albumin 2.0 G/DL (3.5-5.0) L 05/24/17 04:38 Globulin 3.6 G/DL (2.4-3.6) 05/24/17 04:38 Albumin/Globulin Ratio 0.6 RATIO (1.1-2.2) L 05/24/17 04:38 Prealbumin 6.9 MG/DL (17.6-36.0) L 05/17/17 05:01 Plasma Lactate 2.6 MMOL/L (0.6-2.2) H 05/21/17 15:04 Procalcitonin 0.93 NG/ML 05/23/17 04:59 Specimen Hemolysis < 15 (0-25) 06/01/17 05:12 Intake and Output 06/01/17 06/02/17 06/03/17 06:59 06:59 06:59 Intake Total 3033.75 / 3033.75 2227.5 / 2227.5 Output Total 2900 / 2900 1400 / 1400 Balance 133.75 / 133.75 827.5 / 827.5 Weight 70 kg Intake: IV 2012.75 / 2012.75 1657.5 / 1657.5 Intralipid 20% 100 ml @ 100 / 100 50 mls/hr IV 1600 [facility] Rx# :[id number] Sodium Chloride Conc 4 1913.75 / 1913.75 1657.5 / 1657.5 Meq/ml Sodium Acetate 60 Meq KCl 40 Meq K Phos Inj 20 Meq Magnesium Sulfate Inj 16 Meq Calcium Gluconate 9.3 Meq Infuvite Adult 10 ml Multi-Trace Elements 1 ml Folate 2 mg Vitamin B-1 100 mg Potassium Acetate Inj 40 Meq/20 ml In TPN - Custom Formula 2,000 ml @ 75 mls/hr IV .Q24H [facility] Rx#:[id number] Oral 1020 / 1020 570 / 570 Output: Stool 2900 / 2900 1400 / 1400 Other: Urine Color Dark Yellow Urine Odor Normal Normal Stool Color Brown Brown Green Green Blood Tinged Stool Consistency Liquid Liquid Size of Bowel Movement Large # Voids 1 1 # Incontinent Voids 1 1 - Consult Information Continue TPN as ordered.
[2017-06-02] MEDS: MICONAZOLE 2% POWDER 45gm TP SCH ×2 (09:06→20:22)
[2017-06-02] MEDS: CETIRIZINE 10 MG TABLET PO SCH (09:34)
[2017-06-02] MEDS: GABAPENTIN 100 MG CAPSULE PO SCH ×3 (09:35→20:23)
[2017-06-02] MEDS: Venlafaxine XR 37.5 MG CAPSULE (24hr) PO SCH (09:35)
[2017-06-02] MEDS: ENOXAPARIN 40 MG/0.4 ML INJECTION SQ SCH (09:36)
[2017-06-02] MEDS: DICLOFENAC 1% TOP GEL 100gm TP SCH ×4 (09:36→20:08)
[2017-06-02] MEDS: SALINE FLUSH 10ml SYRINGE IV PRN ×2 (09:36→20:09)
[2017-06-02] MEDS ORDERED: FALL RISK - PHARMACY CONSULT XX ONE (10:16)
[2017-06-02] MEDS: POTASSIUM CHLORIDE IV SCH (16:17)
[2017-06-02] MEDS: [UNRECOGNIZED DRUG - OTHER] IV SCH (16:17)
[2017-06-02] MEDS: SODIUM ACETATE IV SCH (16:17)
[2017-06-02] MEDS: SODIUM CHLORIDE IV SCH (16:17)
[2017-06-02] MEDS: FAT EMULSION 20% 100 ML IV SCH (16:18)
[2017-06-02] MEDS: PROMETHAZINE 25 MG INJECTION IVP PRN (20:00)
[2017-06-02] MEDS: Oxycodone *IR* 5 MG TABLET PO PRN (20:09)
[2017-06-03] MEDS: SALINE FLUSH 10ml SYRINGE IV PRN ×4 (01:28→09:37)
[2017-06-03] MEDS: Oxycodone *IR* 5 MG TABLET PO PRN ×2 (01:37→09:38)
[2017-06-03] MEDS: MICONAZOLE 2% POWDER 45gm TP SCH ×2 (09:28→20:07)
[2017-06-03] MEDS: GABAPENTIN 100 MG CAPSULE PO SCH ×3 (09:37→20:10)
[2017-06-03] MEDS: Venlafaxine XR 37.5 MG CAPSULE (24hr) PO SCH (09:37)
[2017-06-03] MEDS: ENOXAPARIN 40 MG/0.4 ML INJECTION SQ SCH (09:37)
[2017-06-03] MEDS: CETIRIZINE 10 MG TABLET PO SCH (09:38)
[2017-06-03] MEDS: DICLOFENAC 1% TOP GEL 100gm TP SCH ×4 (09:39→20:11)
--- NOTE | 2017-06-03 10:23 | Pharmacy Consult-TPN/PPN ---
Pharmacy Consult-TPN/PPN - Laboratory Information Chemistry Turbidity < 20 (0-20) 06/01/17 05:12 Sodium 138 MEQ/L (134-144) 06/01/17 05:12 Potassium 4.3 MEQ/L (3.6-5) 06/01/17 05:12 Chloride 104 MEQ/L (98-107) 06/01/17 05:12 Carbon Dioxide 28 MEQ/L (22-30) 06/01/17 05:12 Anion Gap 6 MEQ/L (5-15) 06/01/17 05:12 BUN 36.0 MG/DL (7-17) H 06/01/17 05:12 Creatinine 0.9 MG/DL (0.7-1.2) 06/01/17 05:12 GFR Calculation 69 06/01/17 05:12 BUN/Creatinine Ratio 40 RATIO (6-26) H 06/01/17 05:12 Glucose 89 MG/DL (65-110) 06/01/17 05:12 Glucometer 125 mg/dL (65-110) 06/03/17 05:59 Calculated Osmolality 273 MOSM/KG (261-280) 06/01/17 05:12 Uric Acid 3.6 MG/DL (2.5-7.5) 05/15/17 01:01 Calcium 8.2 MG/DL (8.4-10.2) L 06/01/17 05:12 Phosphorus 4.4 MG/DL (2.5-4.5) 06/01/17 05:12 Magnesium 2.0 MG/DL (1.6-2.3) 06/01/17 05:12 Total Bilirubin 0.90 MG/DL (0.20-1.30) 05/24/17 04:38 Icterus Index < 2 (0-7) 06/01/17 05:12 AST 45 U/L (14-36) H 05/24/17 04:38 ALT 44 U/L (9-52) 05/24/17 04:38 Alkaline Phosphatase 409 U/L (38-126) H 05/24/17 04:38 Total Protein 5.6 G/DL (6.3-8.2) L 05/24/17 04:38 Albumin 2.0 G/DL (3.5-5.0) L 05/24/17 04:38 Globulin 3.6 G/DL (2.4-3.6) 05/24/17 04:38 Albumin/Globulin Ratio 0.6 RATIO (1.1-2.2) L 05/24/17 04:38 Prealbumin 6.9 MG/DL (17.6-36.0) L 05/17/17 05:01 Plasma Lactate 2.6 MMOL/L (0.6-2.2) H 05/21/17 15:04 Procalcitonin 0.93 NG/ML 05/23/17 04:59 Specimen Hemolysis < 15 (0-25) 06/01/17 05:12 Intake and Output 06/02/17 06/03/17 06/04/17 06:59 06:59 06:59 Intake Total 2327.5 / 2327.5 1908.75 / 1908.75 450 / 450 Output Total 1400 / 1400 800 / 800 1000 / 1000 Balance 927.5 / 927.5 1108.75 / 1108.75 -550 / -550 Weight 70 kg Intake: IV 1757.5 / 1757.5 1908.75 / 1908.75 Intralipid 20% 100 ml @ 100 / 100 100 / 100 50 mls/hr IV 1600 [facility] Rx# :[id number] Sodium Chloride Conc 4 1657.5 / 1657.5 1808.75 / 1808.75 Meq/ml Sodium Acetate 60 Meq KCl 40 Meq K Phos Inj 20 Meq Magnesium Sulfate Inj 16 Meq Calcium Gluconate 9.3 Meq Infuvite Adult 10 ml Multi-Trace Elements 1 ml Folate 2 mg Vitamin B-1 100 mg Potassium Acetate Inj 40 Meq/20 ml In TPN - Custom Formula 2,000 ml @ 75 mls/hr IV .Q24H [facility] Rx#:[id number] Oral 570 / 570 450 / 450 Output: Stool 1400 / 1400 800 / 800 1000 / 1000 Other: Urine Color Dark Yellow Light Miranda Urine Odor Normal Strong Stool Color Brown Brown Green Blood Tinged Stool Consistency Liquid Liquid Size of Bowel Movement Large # Voids 1 1 # Incontinent Voids 1 1 DAY [address] [facility] receiving a CUSTOM TPN FORMULA via PICC, infusing at 75 ml/hr. Also on Fat Emulsion 20% 100ml, one bag daily to prevent EFAD and add a few more calories. This gives approximately 1730 kcal per day, 1800ml fluid from TPN per day. I&O is stable. Blood sugars are stable. Has order for Insulin Aspart (NovoLog*), correctional dose, and generally receives one 2 unit dose each day. Therapy is stable at this time. No new labs today. No new labs since 06/01. Will order electrolyte panel for tomorrow. Thank you.
[2017-06-03] MEDS: [UNRECOGNIZED DRUG - OTHER] IV SCH (15:56)
[2017-06-03] MEDS: FAT EMULSION 20% 100 ML IV SCH (15:56)
[2017-06-03] MEDS: SODIUM ACETATE IV SCH (15:56)
[2017-06-03] MEDS: POTASSIUM CHLORIDE IV SCH (15:56)
[2017-06-03] MEDS: SODIUM CHLORIDE IV SCH (15:56)
[2017-06-03] MEDS: ONDANSETRON ODT 4 MG TABLET PO PRN (16:11)
--- NOTE | 2017-06-04 07:40 | Pharmacy Consult-TPN/PPN ---
Pharmacy Consult-TPN/PPN - Laboratory Information Chemistry Turbidity < 20 (0-20) 06/04/17 04:43 Sodium 136 MEQ/L (134-144) 06/04/17 04:43 Potassium 4.5 MEQ/L (3.6-5) 06/04/17 04:43 Chloride 102 MEQ/L (98-107) 06/04/17 04:43 Carbon Dioxide 30 MEQ/L (22-30) 06/04/17 04:43 Anion Gap 4 MEQ/L (5-15) L 06/04/17 04:43 BUN 36.0 MG/DL (7-17) H 06/04/17 04:43 Creatinine 0.9 MG/DL (0.7-1.2) 06/04/17 04:43 GFR Calculation 69 06/04/17 04:43 BUN/Creatinine Ratio 40 RATIO (6-26) H 06/04/17 04:43 Glucose 84 MG/DL (65-110) 06/04/17 04:43 Glucometer 115 mg/dL (65-110) 06/03/17 21:25 Calculated Osmolality 269 MOSM/KG (261-280) 06/04/17 04:43 Uric Acid 3.6 MG/DL (2.5-7.5) 05/15/17 01:01 Calcium 8.4 MG/DL (8.4-10.2) 06/04/17 04:43 Phosphorus 4.4 MG/DL (2.5-4.5) 06/04/17 04:43 Magnesium 2.0 MG/DL (1.6-2.3) 06/04/17 04:43 Total Bilirubin 1.40 MG/DL (0.20-1.30) H 06/04/17 04:43 Icterus Index < 2 (0-7) 06/04/17 04:43 AST 125 U/L (14-36) H 06/04/17 04:43 ALT 92 U/L (9-52) H 06/04/17 04:43 Alkaline Phosphatase 704 U/L (38-126) H 06/04/17 04:43 Total Protein 5.9 G/DL (6.3-8.2) L 06/04/17 04:43 Albumin 1.9 G/DL (3.5-5.0) L 06/04/17 04:43 Globulin 4.0 G/DL (2.4-3.6) H 06/04/17 04:43 Albumin/Globulin Ratio 0.5 RATIO (1.1-2.2) L 06/04/17 04:43 Prealbumin 6.9 MG/DL (17.6-36.0) L 05/17/17 05:01 Plasma Lactate 2.6 MMOL/L (0.6-2.2) H 05/21/17 15:04 Procalcitonin 0.93 NG/ML 05/23/17 04:59 Specimen Hemolysis < 15 (0-25) 06/04/17 04:43 Intake and Output 06/03/17 06/04/17 06/05/17 06:59 06:59 06:59 Intake Total 1908.75 / 1908.75 3033.75 / 3033.75 Output Total 800 / 800 2752 / 2752 Balance 1108.75 / 1108.75 281.75 / 281.75 Intake: IV 1908.75 / 1908.75 1873.75 / 1873.75 Intralipid 20% 100 ml @ 100 / 100 100 / 100 50 mls/hr IV 1600 [facility] Rx# :[id number] Sodium Chloride Conc 4 1808.75 / 1808.75 1773.75 / 1773.75 Meq/ml Sodium Acetate 60 Meq KCl 40 Meq K Phos Inj 20 Meq Magnesium Sulfate Inj 16 Meq Calcium Gluconate 9.3 Meq Infuvite Adult 10 ml Multi-Trace Elements 1 ml Folate 2 mg Vitamin B-1 100 mg Potassium Acetate Inj 40 Meq/20 ml In TPN - Custom Formula 2,000 ml @ 75 mls/hr IV .Q24H [facility] Rx#:[id number] Oral 1160 / 1160 Output: Urine 2 / 2 Stool 800 / 800 2750 / 2750 Other: Urine Color Light Miranda Light Miranda Urine Odor Strong Stool Color Brown Green Stool Consistency Liquid # Voids 1 # Incontinent Voids 1 - Consult Information We will continue the same Custom TPN formula and rate as previously ordered. Thanks
[2017-06-04] MEDS: ONDANSETRON ODT 4 MG TABLET PO PRN (08:13)
--- NOTE | 2017-06-04 08:27 | Progress Note ---
<ElizaMarisa A - Last Filed: 06/04/17 08:23> Subjective: Laura is seen today while resting in her bed, preparing for her day. Encounter occurs in the presence of therapy and nursing. She reports that she is doing well today and states that she slept well last night. She complains of persistent sore throat that she attributes to seasonal allergies and nasal drainage and requests to change her daily zyrtec to Claritin. She is also noted to have some dried blood on her lips and front teeth which she states is from a small lesion on her right lower lip secondary to dry lips. No active bleeding on exam. Otherwise, she denies any complaints including no chest pain , shortness of breath, abdominal pain, nausea, vomiting or dysuria. Review of medical records and nursing notes indicates that she continues to refuse toileting and has episodes of incontinence, but is overall doing well. BMP from today was unremarkable with sodium 136, potassium 4.5, BUN 36, SCr 0.9 and glucose 84. Blood sugars are stable. She remains on TPN and is tolerating well. Slight elevation in her AST and ALT noted at 125 and 92 respectively. Magnesium stable at 2.0. She expresses her dislike of her continued fluid restriction and need for TPN but is overall, doing well. Anticipate discharge in the near future. CM continues to work on discharge plan. Objective Vital signs: Temperature 98.8 F 06/04/17 04:00 Pulse Rate 100 06/04/17 04:00 Respiratory Rate 16 06/04/17 04:00 Blood Pressure 106/65 06/04/17 04:00 Pulse Oximetry 95 06/04/17 04:00 Height/Weight/BMI: Height 5 ft 2 in Weight 154 lb 5.177 oz Body Mass Index 26.2 - Constitutional Present: no acute distress, well nourished, well developed, cooperative - Routine HEENT Exam Head: Present: normocephalic, atraumatic Eye: Present: PERRL ENT: Present: mucous membranes dry Comments: specks of dried blood noted to lips and front teeth from recent bleed from right lower lip due to dried lips; no active bleeding; no oral lesion or thrush noted. - Routine Respiratory Exam Present: CTA bilaterally. Absent: rhonchi, stridor, wheezes, crackles - Routine Cardiovascular Exam Present: RRR, S1, S2 - Routine Abdominal Exam Present: soft, normoactive bowel sounds - Routine Extremities Exam Present: no edema, pulses intact - Routine Back/Spine/Pelvis Exam Back/Spine: Present: full ROM - Routine Musculoskeletal Exam Musculoskeletal: Present: normal strength, moving extremities well - Routine Skin Exam Present: dry, warm. Absent: jaundice Comments: afebrile; healing ecchymosis noted to left forearm secondary to recent blood transfusion infiltrate; no swelling; radial pulses intact bilaterally. - Routine Neurological Exam Present: alert, oriented X3, moving all extremities, normal speech - Routine Lymphatic Exam Lymphatic: Absent: lymphedema - Routine Psychiatric Exam Present: normal affect, cooperative Results - Labs CBC & Chem 7: 06/01/17 05:12 06/04/17 04:43 Microbiology Results: Microbiology 05/21/17 05:09 Peripheral/Iv Start Blood Culture - Final No Growth After 5 Days 05/21/17 05:10 Peripheral/Iv Start Blood Culture - Final No Growth After 5 Days 05/22/17 10:27 Throat Group A Streptococcus Culture - Final No Group A Strep Isolated 05/21/17 05:01 Urine, Voided (Cc/notcc) Urine Culture - Final Klebsiella pneumoniae 05/14/17 22:43 Cath/Port/Line/Picc Blood Culture - Final No Growth After 5 Days 05/14/17 22:46 Cath/Port/Line/Picc Blood Culture - Final No Growth After 5 Days Assessment and Plan (1) Open abdominal wall wound Current visit: Yes Status: Chronic (2) Myopathy Problem details: Critical illness myopathy Current visit: Yes Status: Acute DVT Prophylaxis: SCD's, Lovenox Resuscitation Status: Full Code Assessment and Plan: 06/04/17: [place]. Assessment Generalized debility and myopathy secondary to prolonged illness and hospitalizations. Recent sepsis secondary to E. faecalis CLABSI and recurrent peritonitis due to enteric leak. Klebsiella UTI - started Tygacil 05/21/17. Urinary retention - repeated need for Christine Leukocytosis, persistent. Thrombocytosis 05/19 Elevated BUN - improving. Hx of recurrent UTI from volume depletion. RLE - erythema - improved TPN use with intermittent electrolyte imbalances. LFT elevation, possibly from TPN Anemia of chronic disease. S/P PRBC transfusion. Moderate protein calorie malnutrition. Hypertension - blood pressures are frequently low-normal. Diabetes vs TPN-induced hyperglycemia. 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 Luu/Dr. Omar Brown) Decubitus ulcer, coccyx. Wound care consulted. Pancreatic pseudocyst, chronic. Unsuccessful attempt for endoscopic cyst gastrostomy for drainage on 05/01/17. Metastatic neuroendocrine tumor, s/p resection, chronic. R ankle pain, disuse osteoporosis on MRI Plan Overall doing well. Continues to work hard with therapy and is eager for discharge. Anticipate discharge in the near future. CM working on discharge plan. Continue therapies and pain control per Dr. Woo to maximize functional abilities. Nursing reports reluctance to toilet resulting in incontinence; continue to encourage daily activities. Complains of sinus drainage and seasonal allergies. Currently on Zyrtec and requests to discontinue Zyrtec and try Claritin. May consider Flonase for sinus congestion if persistent symptoms. Overall blood sugars appear to be well controlled, fasting blood sugar this morning was 84. Continue on costume TPN as electrolytes are stabilized. AST and ALT slightly elevated at 125 and 92 respectively. Will continue to monitor periodically throughout admission. Continue on fluid restriction in light of previous hyponatremia. Continue with wound care. Monitor areas of high pressure (coccyx, elbows, ankles, etc) for skin breakdown as patient is reluctant to change position and continues to have episodes of incontinence. Continue Lovenox subcutaneous daily for DVT prophylaxis. Last hemoglobin stable at 9.4 on 06/01. Will recheck labs on 06/06 to monitor blood counts, electrolytes and renal function. Planning for discharge- Likely early next week - Time spent with patient 25 - 35 minutes Sepsis Assessment - Evaluation Sepsis screening result: No Definite Risk Hospital Course Summary Disclaimer: The visit summary below is not to be considered part of the above Progress Note. Hospital Course: 05/09/17 10:24 Impression: Generalized debility and myopathy secondary to prolonged hospitalizations, acute. * Continue to encourage participation in therapies as patient's goal is to return home with the ability to dress self and ambulate short distances. Therapy reports that she has been doing well and was able to walk 6 steps yesterday. Continue to provide safe and supportive environment. Recent sepsis secondary to E. faecalis CLABSI and recurrent peritonitis due to enteric leak, acute. * Continue tigecycline per Dr. Lewis, to be completed on 05/19. Will discontinue Christine catheter today. Will provide a commode initially to encourage successful toileting until patient strength and endurance improved. Leukocytosis, persistent, present on admission. * WBC on admission 14.4. Continue to monitor trends periodically throughout admission. Patient remains afebrile and WBC trending down as compared to prior recent labs from previous admission. Recheck CBC in AM to monitor blood count trends. Hyperphosphoremia, acute. * Phosphorus elevated at 4.9. Pharmacy notified and will adjust TPN. Will recheck in AM as well as BMP to monitor electrolytes and renal function and continue to monitor trends. Anemia, chronic secondary to chronic disease. * Present on admission with hemoglobin 9.3. Improved from prior admissions. Monitor periodically throughout admission. Moderate protein calorie malnutrition, chronic. * Prealbumin 8.5 on admission. Continue TPN per pharmacy. As patient continues to vomit with large amounts of fluids orally, recommend providing no more than 150cc liquid at a time and encourage slow, small, frequent sips. Encourage boost as able. Hypertension, chronic. * Blood pressures well controlled and borderline low at times. Continue to monitor closely. Diabetes, chronic. * Continue to monitor BGMs, especially in light of TPN. Sliding scale insulin as indicated. Intractable abdominal pain and nausea with draining abdominal wound, chronic. * Pain control per Dr. Woo. Continue Zofran and Phenergan for nausea/ vomiting. Decubitus ulcer, coccyx, chronic. * Wound care team to continue to monitor. Monitor closely for signs of worsening. Continue to encourage patient to do position adjustments frequently , at least Q2 hours. Pancreatic pseudocyst, chronic. * Unsuccessful attempt for endoscopic cyst gastrostomy for drainage on 05/01/17. Metastatic neuroendocrine tumor, s/p resection, chronic. 05/09/2017-I reviewed this chart, the patient history, and the END LATHE OPERATOR's/PA's documented findings as above. We discussed and formulated the assessment and plan as above with the additions below. I've seen and examined the patient independently.-Dr. Olivier The patient states that she is doing okay. She is having some chronic abdominal pain but it is better this evening. She denies any shortness of breath or chest pain. She denies any current nausea. Christine catheter was removed and at the time that I saw her she had not urinated, but afterward she did have a large incontinence of urine. Bladder scan afterward showed about 150 ML's of urine present. She does not have bowel movements since she is nothing by mouth except for fluids. Vital signs were reviewed. She has a borderline mild tachycardia which on review of [facility] records was present there as well. She has not had any fever. Blood pressure is okay. On exam the patient is mildly drowsy but in no acute distress. Oropharynx is moist. Neck is supple. Chest is clear to auscultation. Cardiovascular reveals a regular rhythm and a borderline tachycardic rate. Abdomen reveals an open abdominal wound with a clear dressing. There is some yellowish drainage. Extremities are free of edema. SCDs are in place. Regarding sepsis, continue current antibiotics. Regarding the patient's recent sepsis likely from abdominal source, will consult Dr. Puente to see the patient on Sunday. We'll continue to monitor white count. Continue TPN for malnutrition. Continue to monitor hemoglobin regarding anemia. Regarding acute kidney injury, the patient was seeing Dr. Massimo Pina at [facility]. Her BUN over the past week was ranging from 59-85. I did discontinue ibuprofen that was started here to prevent worsening of acute kidney injury. We' ll need to monitor renal function and fluid status carefully, especially with Christine catheter out. 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 I did discuss the importance of accurate I&O's as much as is possible with her incontinence We'll monitor vital signs frequently and call parameters were placed We'll continue to monitor lab work fairly frequently. 05/12/2017--Dr. 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 The patient also had a new intra-abdominal fluid collection at that time that was 4.1 x 4.1 x 4.6 cm.-the patient has received 3 weeks of tigecycline. Decision made by Dr. Puente/Dr. Lewis of ID on 05/11 to hold further tigecycline. WBC decreased today. Leukocytosis, improved to 14K today, monitoring. Chronic anemia, Hb 7.7, may need PRBC if continued decline. Elevated BUN-trending down Protein calorie malnutrition-requiring TPN with planned [facility] need, adjusting per pharmacy Hypertension Diabetes? Versus hyperglycemia from TPN--well controlled currently Chronic abdominal pain secondary to open abdominal wound and pancreatic pseudocyst--suspect not absorbing the po meds well, pain not controlled Decubitus ulcer Pancreatic pseudocyst with unsuccessful attempt for endoscopic cyst stress study on 05/01/2017 History of metastatic neuroendocrine tumor, status post resection History of recurrent acute kidney injury secondary to volume depletion from high output abdominal drainage Debility secondary to prolonged illness Plan Severe pain today and not really able to participate with therapy Not likely absorbing the po meds well, unit policy precludes IV narcotics, d/w Dr. Woo and will increase fentanyl patch to 100 mcg and monitor for improvement with that change. Continue TPN, will increase K and discuss with pharmacy re: total volume in the setting of high drain outputs. Hold further saline today unless evidence of volume depletion, overall volume status appears stable although difficult to assess in her. Recheck CBC, renal panel in AM and CMP Sunday. Continue to encourage participation with therapy. 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 The patient also had a new intra-abdominal fluid collection at that time that was 4.1 x 4.1 x 4.6 cm.-the patient has received 3 weeks of tigecycline. Decision made by Dr. Puente/Dr. Lewis of ID on 05/11 to hold further tigecycline. WBC decreased again today. Afebrile Leukocytosis, improved to 12K today, monitoring. Chronic anemia, Hb 7.5, may need PRBC if continued decline. Elevated BUN-trending down daily, no evidence of intravascular depletion, off saline currently Protein calorie malnutrition-requiring TPN with planned long term care pharmacist need, adjusting per pharmacy, electrolytes stable today Hypertension per history, recent BP marginal in the 90-100 range systolic Diabetes? Versus hyperglycemia from TPN--well controlled currently Chronic abdominal pain secondary to open abdominal wound and pancreatic pseudocyst--suspect not absorbing the po meds well, pain not controlled Decubitus ulcer Pancreatic pseudocyst with unsuccessful attempt for endoscopic cyst stress study on 05/01/2017 History of metastatic neuroendocrine tumor, status post resection History of recurrent acute kidney injury secondary to volume depletion from high output abdominal drainage, volume status stable currently Debility secondary to prolonged illness Plan Continue with current pain control regimen, will defer any further changes to Dr. Woo, comfortable when resting Not likely absorbing the po meds well but has fentanyl patch, increased to 100 mcg on 05/12, monitor Hold any medications that would drop her blood pressure and monitor for signs of infection Continue TPN per pharmacy Hold further saline today unless evidence of volume depletion, labs and exam stable CBC, CMP in AM Continue to encourage participation with therapy. 05/15/17 Plan Continue with current pain control regimen, will defer any further changes to Dr. Woo, comfortable when resting Cory area of erythema to monitor of evidence of extension. Discussed with OT regarding assessing if there is any irritation or rubbing on the right rivas with patient's leg brace. Will evaluate if more padding as needed. Patient verbalizes this area of her leg is so uncomfortable. She is unable to work with therapy or stand. Regarding increased fever overnight, blood cultures have been drawn and are preliminary negative. Will continue to monitor. Leukocytosis remained stable and is trending down. Continue to monitor hemoglobin as this is slightly decreased, likely secondary to dilution given IV fluids overnight. Continue with wound care. Continue to encourage work with PT and OT for ongoing strengthening Plan- 05/16/17 Erythema of RLE is gone and pain has greatly improved. MRI of the Right ankle was obtained and reveled diffuse osteoporosis with mild subQ edema. Since the erythema has improved will hold off on any antibiotic treatment. She has remained afebrile and WBC count remains stable. Appreciated recommendations by Dr Puente to avoid antibiotics if possible. Appreciate Dr Gayle consultation for further recommendations. Continue with TPN for nutrition. Carefully monitor electrolytes. 05/19/17 Leukocytosis persistent but stable; abx continue to hold. Remains afebrile. BP have remained low but stable; MAP >65 mm Hg. Hgb up to 7.9; thrombocytosis also noted in 05/20/17 Pain remains a major concern of pt. She continues on Fentanyl 100mcg/PRN oxycodone/PRN Morphine BID. Will add TID Gabapentin elixer. Consider adding Cymbalta for pain control and anxiety once we see how she is tolerating gabapentin. Continue TPN, pharmacy following. Continue monitoring labs/accu checks. Consider bladder training to DC christine. Persistent leukocytosis with reactive thrombocytosis- consider repeating CT scan if she becomes febrile. Continue strengthening exercises. 05/21/17 Fever of 101.3 this am. WBC up to 15. BC sent. UA positive with sample from catheter - culture was sent. Will check CXR due to SOA. Platelets up to 510. Dr. Puente is planning on re-evaluating her today. Will check lactate and procalcitonin. ?Repeat CT? Continue pain control; change gabapentin to pill but we may need to revert back to elixer if ineffective. BUN and creatinine are trending up - will give 1L NS. Continue bladder retraining. LFTs increasing - could be related to TPN. 05/22/17 Recurrent fever since 05/21/17. Night doctors gave her a one-time dose of tigecycline after temp increased again to 101. UA and BC show no growth after 1 day. CXR was negative. Swab throat for strep. Discussed with Dr. Puente - CT soft tissue of neck. Continue tigecycline. Hgb decreased to 6.9 - repeat now. May need transfusion. She received a liter of NS yesterday. Will give 1 more liter today. BP has been low to low-normal, which is typical for her. Continue TPN. Monitor for fluid overload since she's getting some extra IVF. 05/23/17-plan Continue to monitor gastric output. It is dark brown in nature. On evaluation of abdominal wound. No evidence of acute bleeding. Will continue to follow routine serum hemoglobin level. She did receive a blood transfusion yesterday. His hemoglobin did dip down to 6.9. Hemoglobin this morning is stable at 9.0. Return of mild hypokalemia. Will give a one-time dose of oral potassium supplementation. Strep throat swab remains negative. Oral nystatin ordered. Urine culture continues to reveal Klebsiella, which has been chronic for her. She continues on Tigecycline IV. 05/24/17 Klebsiella UTI - discussed with Dr. Puente. Complete 7-day course of Tygacil ( through 05/27/17). Remove Christine tomorrow am and monitor PVR. Hgb stable at 8.7 s/p PRBC transfusion on 05/22/17. Hypokalemia - K up to 3.8. 05/28/17 Klebsiella UTI - completed 7-day course of Tygacil. Christine has been out for a few days. Hgb improved to 9.0 - s/p PRBC transfusion on 05/22/17. She's been refusing Nystatin (makes her vomit) - she will let us know if her sore throat becomes worse. Consider Diflucan. 06/01/17 Overall doing well. Continues to work hard with therapy. Hemoglobin is stable at 9.4, last transfusion was on 05/22/17 Overall blood sugars appear to be well controlled, fasting blood sugar this morning was 89. Continue with wound care Lovenox subcutaneous daily for DVT prophylaxis Planning for discharge- Likely early next week 06/04/17 Overall doing well. Continues to work hard with therapy and is eager for discharge. Anticipate discharge in the near future. CM working on discharge plan. Continue therapies and pain control per Dr. Woo to maximize functional abilities. Nursing reports reluctance to toilet resulting in incontinence; continue to encourage daily activities. Complains of sinus drainage and seasonal allergies. Currently on Zyrtec and requests to discontinue Zyrtec and try Claritin. May consider Flonase for sinus congestion if persistent symptoms. Overall blood sugars appear to be well controlled, fasting blood sugar this morning was 84. Continue on costume TPN as electrolytes are stabilized. AST and ALT slightly elevated at 125 and 92 respectively. Will continue to monitor periodically throughout admission. Continue on fluid restriction in light of previous hyponatremia. Continue with wound care. Monitor areas of high pressure (coccyx, elbows, ankles, etc) for skin breakdown as patient is reluctant to change position and continues to have episodes of incontinence. Continue Lovenox subcutaneous daily for DVT prophylaxis. Last hemoglobin stable at 9.4 on 06/01. Will recheck labs on 06/06 to monitor blood counts, electrolytes and renal function. Planning for discharge- Likely early next week <Tracy Bailey - Last Filed: 06/04/17 17:14> Objective Vital signs: Temperature 97.0 F 06/04/17 16:00 Pulse Rate 98 06/04/17 16:00 Respiratory Rate 16 06/04/17 16:00 Blood Pressure 105/71 06/04/17 16:00 Pulse Oximetry 93 06/04/17 16:00 Height/Weight/BMI: Height 1.57 m Weight 72.8 kg Body Mass Index 26.2 Results - Labs CBC & Chem 7: 06/01/17 05:12 06/04/17 04:43 Microbiology Results: Assessment and Plan (1) Open abdominal wall wound Current visit: Yes Status: Chronic (2) Myopathy Problem details: Critical illness myopathy Current visit: Yes Status: Acute Assessment and Plan: I have independently evaluated and examined this patient. I reviewed the chart, the patient's history, and the END LATHE OPERATOR/PA's documented findings as above. We discussed and formulated the assessment and plan as above with additions as below: Laura was in good spirits when seen in denied dyspnea or dizziness. She continues to have variable abdominal pain and is taking 500-1000 mL liquids daily. She reported that abdominal wound seem a little smaller than they did previously. Discharge is tentatively planned for tomorrow. Patient was smiling and more interactive than in the past. Respirations nonlabored with clear breath sounds anteriorly Regular rhythm Large abdominal wound with drainage-dressing in place. Elevated transaminases noted-may be result of TPN, will need to be reassessed within 1 week. Discussed need for surgical follow-up with patient and her . Hospital Course Summary Disclaimer: The visit summary below is not to be considered part of the above Progress Note.
[2017-06-04] MEDS: Oxycodone *IR* 5 MG TABLET PO PRN ×2 (09:01→17:03)
[2017-06-04] MEDS: GABAPENTIN 100 MG CAPSULE PO SCH ×4 (11:24→22:29)
[2017-06-04] MEDS: Venlafaxine XR 37.5 MG CAPSULE (24hr) PO SCH (11:24)
[2017-06-04] MEDS: LORATADINE 10 MG TABLET PO SCH (11:25)
[2017-06-04] MEDS: MICONAZOLE 2% POWDER 45gm TP SCH ×2 (11:25→22:26)
[2017-06-04] MEDS: ENOXAPARIN 40 MG/0.4 ML INJECTION SQ SCH (11:25)
[2017-06-04] MEDS: DICLOFENAC 1% TOP GEL 100gm TP SCH ×4 (11:26→22:27)
[2017-06-04] MEDS: SODIUM CHLORIDE IV SCH (17:05)
[2017-06-04] MEDS: POTASSIUM CHLORIDE IV SCH (17:05)
[2017-06-04] MEDS: [UNRECOGNIZED DRUG - OTHER] IV SCH (17:05)
[2017-06-04] MEDS: SODIUM ACETATE IV SCH (17:05)
[2017-06-04] MEDS: FAT EMULSION 20% 100 ML IV SCH (17:07)
[2017-06-05] MEDS ORDERED: NYSTATIN 500,000 units/5 ml ORAL LIQUID PO ONE ×2 (06:41→06:50)
[2017-06-05] MEDS: LORATADINE 10 MG TABLET PO SCH (07:07)
[2017-06-05] MEDS: Oxycodone *IR* 5 MG TABLET PO PRN ×3 (07:29→17:42)
[2017-06-05] MEDS: ONDANSETRON ODT 4 MG TABLET PO PRN ×2 (07:29→16:24)
--- NOTE | 2017-06-05 08:16 | Pharmacy Consult-TPN/PPN ---
Pharmacy Consult-TPN/PPN - Laboratory Information Chemistry Turbidity < 20 (0-20) 06/04/17 04:43 Sodium 136 MEQ/L (134-144) 06/04/17 04:43 Potassium 4.5 MEQ/L (3.6-5) 06/04/17 04:43 Chloride 102 MEQ/L (98-107) 06/04/17 04:43 Carbon Dioxide 30 MEQ/L (22-30) 06/04/17 04:43 Anion Gap 4 MEQ/L (5-15) L 06/04/17 04:43 BUN 36.0 MG/DL (7-17) H 06/04/17 04:43 Creatinine 0.9 MG/DL (0.7-1.2) 06/04/17 04:43 GFR Calculation 69 06/04/17 04:43 BUN/Creatinine Ratio 40 RATIO (6-26) H 06/04/17 04:43 Glucose 84 MG/DL (65-110) 06/04/17 04:43 Glucometer 109 mg/dL (65-110) 06/05/17 06:32 Calculated Osmolality 269 MOSM/KG (261-280) 06/04/17 04:43 Uric Acid 3.6 MG/DL (2.5-7.5) 05/15/17 01:01 Calcium 8.4 MG/DL (8.4-10.2) 06/04/17 04:43 Phosphorus 4.4 MG/DL (2.5-4.5) 06/04/17 04:43 Magnesium 2.0 MG/DL (1.6-2.3) 06/04/17 04:43 Total Bilirubin 1.40 MG/DL (0.20-1.30) H 06/04/17 04:43 Icterus Index < 2 (0-7) 06/04/17 04:43 AST 125 U/L (14-36) H 06/04/17 04:43 ALT 92 U/L (9-52) H 06/04/17 04:43 Alkaline Phosphatase 704 U/L (38-126) H 06/04/17 04:43 Total Protein 5.9 G/DL (6.3-8.2) L 06/04/17 04:43 Albumin 1.9 G/DL (3.5-5.0) L 06/04/17 04:43 Globulin 4.0 G/DL (2.4-3.6) H 06/04/17 04:43 Albumin/Globulin Ratio 0.5 RATIO (1.1-2.2) L 06/04/17 04:43 Prealbumin 6.9 MG/DL (17.6-36.0) L 05/17/17 05:01 Plasma Lactate 2.6 MMOL/L (0.6-2.2) H 05/21/17 15:04 Procalcitonin 0.93 NG/ML 05/23/17 04:59 Specimen Hemolysis < 15 (0-25) 06/04/17 04:43 Intake and Output 06/04/17 06/05/17 06/06/17 06:59 06:59 06:59 Intake Total 3033.75 / 3033.75 2736.25 / 2736.25 Output Total 2752 / 2752 800 / 800 Balance 281.75 / 281.75 1936.25 / 1936.25 Weight 72.8 kg Intake: IV 1873.75 / 1873.75 1886.25 / 1886.25 Intralipid 20% 100 ml @ 100 / 100 50 mls/hr IV 1600 [facility] Rx# :[id number] Sodium Chloride Conc 4 1773.75 / 1773.75 1886.25 / 1886.25 Meq/ml Sodium Acetate 60 Meq KCl 40 Meq K Phos Inj 20 Meq Magnesium Sulfate Inj 16 Meq Calcium Gluconate 9.3 Meq Infuvite Adult 10 ml Multi-Trace Elements 1 ml Folate 2 mg Vitamin B-1 100 mg Potassium Acetate Inj 40 Meq/20 ml In TPN - Custom Formula 2,000 ml @ 75 mls/hr IV .Q24H [facility] Rx#:[id number] Oral 1160 / 1160 850 / 850 Output: Urine 2 / 2 Stool 2750 / 2750 800 / 800 Other: Urine Color Light Miranda Light Miranda Urine Odor Strong Stool Color Brown Brown Green Green Stool Consistency Liquid Liquid # Voids 3 # Incontinent Voids 3 # Unmeasured Emesis 1 Episodes - Consult Information No electrolytes ordered today. Will continue current custom formula at 70 mls/ hr. Thank you.
[2017-06-05] MEDS: Venlafaxine XR 37.5 MG CAPSULE (24hr) PO SCH (08:18)
[2017-06-05] MEDS: ENOXAPARIN 40 MG/0.4 ML INJECTION SQ SCH (08:21)
--- NOTE | 2017-06-05 08:43 | Discharge Instructions ---
Discharge Plan - Med Rec/Dispo Referrals/Follow Up: Nas Ruelas DO [Physician] - (Dr. Nas Ruelas on 06/19/17 at 11:30 am for Hosp. follow-up. [phone] [facility] [address] [place] [address]) Additional Instructions: Monitor mucous membranes for bleeding - we are holding Lovenox at time of discharge b/c of mild epistaxis and a small cut on her tongue that was bleeding on day of discharge. Since we are not Rx Lovenox, it is important to keep as active at home as possible to prevent blood clots. Prescriptions: New Gabapentin [Neurontin] 200 mg PO TID #30 cap Venlafaxine Xr [Effexor Xr] 37.5 mg PO WB #30 cap Diclofenac [Voltaren] 1 applicatio TP QID #1 tube FentaNYL PATCH [Duragesic Patch] 100 mcg TD Q3D #10 patch Fluticasone Nasal [place] [Flonase] 2 spray EA NOSTRIL BID #1 bottle Continue Acetaminophen [Acetaminophen Extra Strength] 1,000 mg PO Q6HPRN PRN PRN Reason: Pain Polyethylene Glycol 3350 17 gm PO DAILY PRN PRN Reason: Constipation Saliva Substitute Mouth [place] [Biotene Moisturizing Mouth [place]] 1 applic PO QIDPRN PRN PRN Reason: Dry Mouth HydrOXYzine [Atarax] 25 mg PO QIDPRN PRN #30 tab PRN Reason: Itching Oxycodone *Ir* [Roxicodone *Ir*] 5 - 10 mg PO Q4HPRN PRN #40 tablet PRN Reason: Pain Cetirizine [Zyrtec] 5 mg PO DAILY Heparin Sodium,Porcine/Pf [Heparin Flush 10 Units/ml Syr] 1 ml IVP BID #20 syringe Ondansetron [Zofran Odt] 1 tab PO Q6HPRN PRN #20 tab.rapdis PRN Reason: Nausea Discontinued LORazepam INJ [Ativan Inj] 0.13 ml IM Q6HPRN PRN PRN Reason: Anxiety Meperidine HCl/Pf [Meperidine 25 mg/ml Vial] 2 ml IV Q4HPRN PRN PRN Reason: Pain Albuterol/Ipratropium [Duoneb] 1 unit AEROSOL QIDPRN PRN PRN Reason: Shortness Of Air/Wheezing Hydromorphone HCl in 0.9% NaCl [Hydromorphone-Ns 1 mg/ml Syr] 0.25 mg IVP Q2HPRN PRN PRN Reason: Pain D50w [Dextrose 50% in Water] 50 ml IV O PRN PRN Reason: Hypoglycemia Glucagon [Glucagen] 1 mg IM PRN PRN PRN Reason: hypoglycemia FentaNYL PATCH [Duragesic Patch] 50 mcg TD Q3D FentaNYL PATCH [Duragesic Patch] 25 mcg TD Q3D DiphenhydrAMINE [Benadryl] 25 mg IV Q8HPRN PRN PRN Reason: Itching Acetaminophen [Feverall] 650 mg RC Q4HPRN PRN PRN Reason: Fever Miconazole 2% Powder [Desenex] 1 applic TP BID Ibuprofen [Motrin] 1 tab PO Q6H PRN PRN Reason: Pain Tigecycline 50 mg IV Q12H Nystatin Cream [Mycostatin] 1 applic TOP BID Insulin Lispro [Humalog] 0 unit SQ PRN PRN PRN Reason: Hyperglycemia Furosemide [Lasix] 20 mg IM DAILY PRN PRN Reason: NEEDED Discharge Instructions/Outpatient Orders: Final Provider Discharge Instructions Location: Determined By Patient - Disposition [address] [place] [address]
--- NOTE | 2017-06-05 09:34 | IRU Progress Note ---
- Subjective/Serverity of Illness I evaluated Laura in her room today. She says that she is doing quite well. has noted some blood from the tongue. I inspected the mouth. There is some gum disease noted around the molars. However the tongue itself looks fine. I do not see any evidence of thrush at the present time. In addition, we talked about whether to continue the Lovenox. Of course Laura would prefer not to do that. However I believe that she is going to be more sedentary than active and I think it would be prudent to continue the Lovenox for the time being. will be instructed in this regard. Her pain is well controlled on the current regimen. She is using the oxycodone IR only once or twice daily. She is on the fentanyl patch. I told him I would prescribe the fentanyl patch and about 40 of the oxycodone IR for their use. Home health has been instructed with regard to dressing changes etc. There is some leakage noted. She has remained afebrile. Update on medical issues: 1. Pain management in view of her abdominal pain: She is on fentanyl patch 100 g every 3 days. She is actually using a fairly minimal amount of oxycodone IR. We encouraged her to limit this if at all possible. 2. 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 Patient is on TPN which will require close monitoring. social media community manager has worked with [facility] in this regard. and patient have been have been instructed. They will deliver the first week's worth of TPN at her home today. This will be coordinated with her discharge. 3. Recent acute kidney injury and sepsis: This is resolved and her kidney function appears to be normal. 4. Recent hyponatremia - resolved. 5. Chronic draining abdominal fistulae: Wound care has been involved and home health has been instructed with regard to drainage and wound management. 6. Anemia of chronic disease: Hemoglobin has remained stable. No further evidence of acute blood loss anemia. Exam Vital Signs: Temperature 98.2 F 06/05/17 07:18 Pulse Rate 97 06/05/17 07:18 Respiratory Rate 20 06/05/17 07:18 Blood Pressure 112/66 06/05/17 07:18 Pulse Oximetry 97 06/05/17 07:18 Height/Weight/BMI: Height 1.57 m Weight 72.8 kg Body Mass Index 26.2 Comments: The patient is awake, alert and oriented and in no acute distress. She seems to be pleasant and eager to get home. Pupils are equal. Careful intraoral exam feels to reveal significant abnormalities. There is some gum disease chronically. No areas of ulceration or active bleeding identified. No thrush is present. The neck is supple. Chest: Clear to auscultation bilaterally. Cor: RR with no gallop, click nor murmur Abd: Exam remains unchanged. Has large area of open abdomen with dressing. Extremities: No edema is noted. Muscular skeletal: Muscle atrophy and weakness continues to be identified. Has chronic foot drop. Results IRU - Labs Labs: Reviewed recent labs as well as hospitalist's notes etc. 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 Muscle weakness continues to be noted. (2) Open abdominal wall wound Qualifiers: Encounter type: subsequent encounter Qualified Code(s): S31.109D - Unspecified open wound of abdominal wall, unspecified quadrant without penetration into peritoneal cavity, subsequent encounter Current visit: Yes Status: Chronic Home health has been instructed with regard to wound management. I have discussed with Dr. Ruelas as well. (3) Diabetes Qualifiers: Diabetes mellitus type: due to underlying condition Diabetes mellitus complication status: without complication Diabetes mellitus retirement insulin use: without retirement use Qualified Code(s): E08.9 - Diabetes mellitus due to underlying condition without complications Current visit: No Status: Chronic (4) Protein-calorie malnutrition, moderate Current visit: Yes Status: Chronic She continues on TPN with management per [place], home health and Dr. Ruelas. (5) Ankle pain, right Qualifiers: Chronicity: acute Qualified Code(s): M25.571 - Pain in right ankle and joints of right foot Current visit: Yes Status: Resolved (6) UTI (urinary tract infection) Qualifiers: Urinary tract infection type: acute cystitis Hematuria presence: with hematuria Qualified Code(s): N30.01 - Acute cystitis with hematuria Current visit: Yes Status: Resolved DVT Prophylaxis: SCD's, Lovenox Resuscitation Status: Full Code - Course Hospital Course: Yevgeniy Woo MD: 05/08/17 10:09 Initiating physical therapy and occupational therapy. Patient is cooperative this morning. Complains of chronic abdominal pain. Limiting oral intake in an effort to reduce leakage from the wound and allow patient to participate in therapy. She would like to increase the restriction from 120 up to 150 ML per hour. This will be allowed. This is excluding intake at mealtime. We will leave a cup at her bedside and I asked her to simply sip on this and not take it all at once. She agreed to do this. White count 14,000 but without evidence of active infection. She remains afebrile. Pain management is with patches and oral agents only. 05/09/17 11:50 Continues to require significant encouragement to participate with therapy. Walked 6 ft. Abd pain is remaining as ongoing pain issue. Protein calorie malnutrition addressed with TPN. 05/10/17 11:19 She is making slow progress. White count improved to 13,000. Appreciate hospitalists assistance. Lower extremity dressing is improved. Walking distance improved. Transfers minimally improved. Significant concerns about patient motivation and safety awareness remains. Abdominal pain, nausea and vomiting impact her therapy progress. 05/14/17 10:48 Has multiple medical problems. Making very slow progress. Frequently refuses therapy or at least postpones it. Requires much encouragement to participate. Increased fentanyl patch in an effort to improve her pain management. Continues on TPN. White count improved to 12,000. 05/15/17 10:39 Continues to be very complex. Had poor urine output but responded to fluid bolus. Requires total assistance for many ADLs. Increase fentanyl patch 2-3 days ago. Hopefully that will provide additional pain improvement. White count is improved. Hemoglobin down at 7.1. Does have right ankle pain now which impedes her progress. 05/16/17 10:54 Continues on TPN. Hemoglobin improved at 7.6. White count remains relatively low for her at 11,000. Right ankle pain appears to virtually have resolved. MRI shows disuse osteoporosis only. No evidence of active infection nor inflammation. Seems to have a better attitude today. We will continue current pain management although we did discuss the possibility of oral morphine yesterday. If we do that she will probably be able to tolerate the morphine concentrate and a sublingual or a lingual route. However we will hold off for the time being. Continues to require close medical management of multiple medical conditions. 05/18/17 09:56 Appreciate assistance of infectious disease and hospitalist service. Low-grade fever of 99 but stable white count at 12,000. No evidence of infection and ID recommends no antibiotics at present. Continues to require a lot of encouragement for therapies but is slowly improving. She indicated she does want to get back home. She would like to eat more and again we recommended no advance in her diet due to recurrent nausea and vomiting. She requires close medical management for multiple medical conditions. 05/28/17 11:26 Remains afebrile New diagnosis of UTI with Klebsiella and is now on tigecycline. Followed by Dr. Puente. Tolerating TPN well. Chronic nausea States that she feels better today overall and has more energy. Continues to require a lot of encouragement for 05/29/17 11:44 Reports that she is nauseated. Remains on tigecycline for UTI with Klebsiella. Tolerating TPN well. Chronic abdominal pain noted. Continues to require significant encouragement. 05/30/17 11:06 Patient is able to transfer with standby assistance and occasionally contact- guard assistance. She is unable ambulate. She will need to be trained along with home health regarding the ostomy issues. Continue TPN. No change in pain medication. She will require a wheelchair and a hospital bed at home. 06/01/17 11:00 Appreciate hospitalists input. Pain is adequately controlled. Still has dry heaves but this is chronic. Multiple arrangements have been undertaken to ensure a safe transition to her home environment. We have arranged for home durable medical equipment including a hospital bed, vacuum device for suction, wheelchair, ostomy supplies etc. In addition we have arranged for home TPN. Patient is stable for dismissal early next week. 06/05/17 09:38 Patient is medically stable for dismissal. Multiple arrangements have been undertaken to ensure a safe transition to her home environment. I have discussed the case with the patient's and the patient and questions have been addressed. Also have discussed with career development counselor. - Interventions to Obtain Goals PT Treatment Plan: Balance/Proprioception, Functional Activities, Gait Training , Patient/Family Education, Therapeutic Exercise OT Treatment Plan: ADL (Basic Care), Balance Training, Pt./Family Education, UE Functional Training
[2017-06-05] MEDS: GABAPENTIN 100 MG CAPSULE PO SCH ×2 (09:36→14:42)
--- NOTE | 2017-06-05 09:44 | Discharge Instructions ---
Discharge Plan - Med Rec/Dispo Referrals/Follow Up: Nas Ruelas DO [Physician] - Prescriptions: New Enoxaparin Sodium [Lovenox] 40 mg SQ DAILY #30 syringe Gabapentin [Neurontin] 200 mg PO TID #30 cap Venlafaxine Xr [Effexor Xr] 37.5 mg PO WB #30 cap Diclofenac [Voltaren] 1 applicatio TP QID #1 tube FentaNYL PATCH [Duragesic Patch] 100 mcg TD Q3D #10 patch Continue Acetaminophen [Acetaminophen Extra Strength] 1,000 mg PO Q6HPRN PRN PRN Reason: Pain Saliva Substitute Mouth [place] [Biotene Moisturizing Mouth [place]] 1 applic PO QIDPRN PRN PRN Reason: Dry Mouth HydrOXYzine [Atarax] 25 mg PO QIDPRN PRN #30 tab PRN Reason: Itching Oxycodone *Ir* [Roxicodone *Ir*] 5 - 10 mg PO Q4HPRN PRN #40 tablet PRN Reason: Pain Cetirizine [Zyrtec] 5 mg PO DAILY Heparin Sodium,Porcine/Pf [Heparin Flush 10 Units/ml Syr] 1 ml IVP BID #20 syringe Ondansetron [Zofran Odt] 1 tab PO Q6HPRN PRN #20 tab.rapdis PRN Reason: Nausea Discontinued LORazepam INJ [Ativan Inj] 0.13 ml IM Q6HPRN PRN PRN Reason: Anxiety Meperidine HCl/Pf [Meperidine 25 mg/ml Vial] 2 ml IV Q4HPRN PRN PRN Reason: Pain Albuterol/Ipratropium [Duoneb] 1 unit AEROSOL QIDPRN PRN PRN Reason: Shortness Of Air/Wheezing Hydromorphone HCl in 0.9% NaCl [Hydromorphone-Ns 1 mg/ml Syr] 0.25 mg IVP Q2HPRN PRN PRN Reason: Pain D50w [Dextrose 50% in Water] 50 ml IV O PRN PRN Reason: Hypoglycemia Glucagon [Glucagen] 1 mg IM PRN PRN PRN Reason: hypoglycemia DiphenhydrAMINE [Benadryl] 25 mg IV Q8HPRN PRN PRN Reason: Itching Acetaminophen [Feverall] 650 mg RC Q4HPRN PRN PRN Reason: Fever Miconazole 2% Powder [Desenex] 1 applic TP BID Ibuprofen [Motrin] 1 tab PO Q6H PRN PRN Reason: Pain Tigecycline 50 mg IV Q12H Nystatin Cream [Mycostatin] 1 applic TOP BID Insulin Lispro [Humalog] 0 unit SQ PRN PRN PRN Reason: Hyperglycemia Furosemide [Lasix] 20 mg IM DAILY PRN PRN Reason: NEEDED No Action FentaNYL PATCH [Duragesic Patch] 50 mcg TD Q3D FentaNYL PATCH [Duragesic Patch] 25 mcg TD Q3D Polyethylene Glycol 3350 17 gm PO DAILY PRN PRN Reason: Constipation Discharge Instructions/Outpatient Orders: Final Provider Discharge Instructions Location: Determined By Patient - Disposition [address] [place] [address]
--- NOTE | 2017-06-05 10:57 | Discharge Summary ---
Discharge Information Date of admission: 05/07/17 12:12 Anticipated date of discharge: 06/05/17 Attending Physician: Yevgeniy Woo MD Primary care physician: ODALYS Barkley Consults: 05/07/17 13:29 Dietary Consult [CONS] Routine Comment: Reason For Exam: 05/07/17 13:34 Wound Vein Clinic Consult [CONS] Routine Reason for consultation: large open abdominal wound and area to sacrum 05/07/17 13:42 Physician Consult [CONS] Routine Consulting Provider: Karl Grajeda Reason For Exam: Medical management Ordering Provider has Notified [address]: Yes 05/07/17 15:22 Pharmacy Consult [CONS] Routine Pharmacy Consult: TPN Comment: Pt has been on TPN from [facility]. Recipe availa 05/09/17 18:20 Physician Consult [CONS] Routine Consulting Provider: Natacha Puente Reason For Exam: recent sepis, prolonged abx Ordering Provider has Notified [address]: Yes 05/15/17 14:11 Physician Consult [CONS] Routine Consulting Provider: Omar Gayle Reason For Exam: LLE erythema and pain Ordering Provider has Notified [address]: Yes Comment: notified Raymond 05/16/17 13:51 Dietary Consult [CONS] Routine Comment: Reason For Exam: 05/22/17 13:46 Dietary Consult [CONS] Routine Comment: Reason For Exam: - Discharge Diagnosis (1) Myopathy Discharge Diagnosis: 1. Critical illness myopathy 2. Open abdominal wound with multiple draining fistulae 3. Protein calorie malnutrition - moderate 4. Reduced intestinal absorption of nutrients 5. Neuroendocrine malignancy 6. Depression - Laboratory Labs: 06/01/17 05:12 06/04/17 04:43 - Microbiology Microbiology 05/21/17 05:09 Peripheral/Iv Start Blood Culture - Final No Growth After 5 Days 05/21/17 05:10 Peripheral/Iv Start Blood Culture - Final No Growth After 5 Days 05/22/17 10:27 Throat Group A Streptococcus Culture - Final No Group A Strep Isolated 05/21/17 05:01 Urine, Voided (Cc/notcc) Urine Culture - Final Klebsiella pneumoniae 05/14/17 22:43 Cath/Port/Line/Picc Blood Culture - Final No Growth After 5 Days 05/14/17 22:46 Cath/Port/Line/Picc Blood Culture - Final No Growth After 5 Days History of Present Illness HPI: 06/05/17 10:54 Laura is a 41-year-old female who has history of neuroendocrine malignancy resected on 07/10/2016. She has had a very prolonged institutional stay at various hospitals and other facilities. 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 She has had numerous abdominal procedures including a skin graft to cover her intestine. At this time she was readmitted to the inpatient rehabilitation unit after having been sent back to [facility] for possible sepsis. At that time she was noted to have a pancreatic pseudocyst. Attempted EUS via gastroscope with possible cyst puncture was made but was aborted because of risk of complication with her ascites etc. She was managed by infectious disease in [place] (Dr. Marcial Lewis). He recommended a two-week total treatment with Tygacil which she was finishing up at the time of readmission to the rehabilitation unit. In addition, she did have evidence of acute kidney injury which had resolved. She was followed by nephrology in this regard. She was admitted to the rehabilitation unit for intensive individualized is with therapy and occupational therapy along with dietitian instruction and management, and 24 rehabilitation nursing. Medical issues included pain management due to chronic abdominal pain, malnutrition with poor oral intake and lack of absorption due to short-bowel syndrome with patient being on TPN, recent acute kidney injury and sepsis with recent requirement for tigecycline, recent hyponatremia which was improved and chronic draining abdominal fistula requiring close monitoring with regard to fluid management. Hospital Course This is a general summary of the patient's hospital course. For more details refer to the complete medical record. The patient's course on the inpatient rehabilitation unit was complicated. She required continued management of her TPN with close monitoring of blood work and vital signs. She did develop a UTI with Klebsiella and was seen by Dr. Tracee Puente. She was treated with tigecycline in this regard. Has several other medicinal allergies. This resolved. The hospitalist service was extremely helpful and monitored and followed the patient throughout the time of her stay on the inpatient rehabilitation unit. She was also seen in consultation by Dr. Tracee Puente. Multiple disciplines were involved in this patient's care during the time of her stay on rehabilitation. Unfortunately, her progress on rehabilitation was hampered by the need to continually motivate the patient to get out of bed and to work with therapy. She had frequent episodes of nausea. She had the need for significant verbal encouragement to participate. Nevertheless, she did demonstrate improvement during the time of her stay on acute rehabilitation as follows: For occupational therapy, she remained total assistance for isma-care. However bed to wheelchair transfers were accomplished with moderate assistance. She was able to perform grooming with standby assistance. Bathing continued to require total assistance. Upper extremity dressing required standby assistance and lower extremity dressing was quite variable with between minimal assistance and total assistance depending on the day. With regard to physical therapy, there was improvement with pivot to chair transfers to contact-guard assistance. Sliding board transfer was performed with contact-guard assistance. Car transfers were contact-guard assistance. She was ambulated with a manual wheelchair. Extensive arrangements were made for her to transfer back home. I discussed her case with her primary care physician Dr. Margarito Ruelas who agreed to assume her care as an outpatient. She will be seen by home health. Home health was instructed with regard to wound management by our wound care nurse. She will require physical therapy and occupational therapy at home as well. Patt[facility] will provide TPN and monitoring of blood work etc. With regard to pain management for abdominal pain, I did prescribe fentanyl patch 100 g #10 patches which should last her a month. Also prescribed oxycodone IR 5 mg #40. Recently she has been taking only 1 or 2 daily. Hospital course: 05/09/17 10:24 Impression: Generalized debility and myopathy secondary to prolonged hospitalizations, acute. * Continue to encourage participation in therapies as patient's goal is to return home with the ability to dress self and ambulate short distances. Therapy reports that she has been doing well and was able to walk 6 steps yesterday. Continue to provide safe and supportive environment. Recent sepsis secondary to E. faecalis CLABSI and recurrent peritonitis due to enteric leak, acute. * Continue tigecycline per Dr. Lewis, to be completed on 05/19. Will discontinue Christine catheter today. Will provide a commode initially to encourage successful toileting until patient strength and endurance improved. Leukocytosis, persistent, present on admission. * WBC on admission 14.4. Continue to monitor trends periodically throughout admission. Patient remains afebrile and WBC trending down as compared to prior recent labs from previous admission. Recheck CBC in AM to monitor blood count trends. Hyperphosphoremia, acute. * Phosphorus elevated at 4.9. Pharmacy notified and will adjust TPN. Will recheck in AM as well as BMP to monitor electrolytes and renal function and continue to monitor trends. Anemia, chronic secondary to chronic disease. * Present on admission with hemoglobin 9.3. Improved from prior admissions. Monitor periodically throughout admission. Moderate protein calorie malnutrition, chronic. * Prealbumin 8.5 on admission. Continue TPN per pharmacy. As patient continues to vomit with large amounts of fluids orally, recommend providing no more than 150cc liquid at a time and encourage slow, small, frequent sips. Encourage boost as able. Hypertension, chronic. * Blood pressures well controlled and borderline low at times. Continue to monitor closely. Diabetes, chronic. * Continue to monitor BGMs, especially in light of TPN. Sliding scale insulin as indicated. Intractable abdominal pain and nausea with draining abdominal wound, chronic. * Pain control per Dr. Woo. Continue Zofran and Phenergan for nausea/ vomiting. Decubitus ulcer, coccyx, chronic. * Wound care team to continue to monitor. Monitor closely for signs of worsening. Continue to encourage patient to do position adjustments frequently , at least Q2 hours. Pancreatic pseudocyst, chronic. * Unsuccessful attempt for endoscopic cyst gastrostomy for drainage on 05/01/17. Metastatic neuroendocrine tumor, s/p resection, chronic. 05/09/2017-I reviewed this chart, the patient history, and the TRUCK SERVICE [employer]NAGER's/PA's documented findings as above. We discussed and formulated the assessment and plan as above with the additions below. I've seen and examined the patient independently.-Dr. Olivier The patient states that she is doing okay. She is having some chronic abdominal pain but it is better this evening. She denies any shortness of breath or chest pain. She denies any current nausea. Christine catheter was removed and at the time that I saw her she had not urinated, but afterward she did have a large incontinence of urine. Bladder scan afterward showed about 150 ML's of urine present. She does not have bowel movements since she is nothing by mouth except for fluids. Vital signs were reviewed. She has a borderline mild tachycardia which on review of [facility] records was present there as well. She has not had any fever. Blood pressure is okay. On exam the patient is mildly drowsy but in no acute distress. Oropharynx is moist. Neck is supple. Chest is clear to auscultation. Cardiovascular reveals a regular rhythm and a borderline tachycardic rate. Abdomen reveals an open abdominal wound with a clear dressing. There is some yellowish drainage. Extremities are free of edema. SCDs are in place. Regarding sepsis, continue current antibiotics. Regarding the patient's recent sepsis likely from abdominal source, will consult Dr. Puente to see the patient on Sunday. We'll continue to monitor white count. Continue TPN for malnutrition. Continue to monitor hemoglobin regarding anemia. Regarding acute kidney injury, the patient was seeing Dr. Massimo Pina at [facility]. Her BUN over the past week was ranging from 59-85. I did discontinue ibuprofen that was started here to prevent worsening of acute kidney injury. We' ll need to monitor renal function and fluid status carefully, especially with Christine catheter out. 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 I did discuss the importance of accurate I&O's as much as is possible with her incontinence We'll monitor vital signs frequently and call parameters were placed We'll continue to monitor lab work fairly frequently. 05/12/2017--Dr. 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 The patient also had a new intra-abdominal fluid collection at that time that was 4.1 x 4.1 x 4.6 cm.-the patient has received 3 weeks of tigecycline. Decision made by Dr. Puente/Dr. Lewis of ID on 05/11 to hold further tigecycline. WBC decreased today. Leukocytosis, improved to 14K today, monitoring. Chronic anemia, Hb 7.7, may need PRBC if continued decline. Elevated BUN-trending down Protein calorie malnutrition-requiring TPN with planned outside rigger need, adjusting per pharmacy Hypertension Diabetes? Versus hyperglycemia from TPN--well controlled currently Chronic abdominal pain secondary to open abdominal wound and pancreatic pseudocyst--suspect not absorbing the po meds well, pain not controlled Decubitus ulcer Pancreatic pseudocyst with unsuccessful attempt for endoscopic cyst stress study on 05/01/2017 History of metastatic neuroendocrine tumor, status post resection History of recurrent acute kidney injury secondary to volume depletion from high output abdominal drainage Debility secondary to prolonged illness Plan Severe pain today and not really able to participate with therapy Not likely absorbing the po meds well, unit policy precludes IV narcotics, d/w Dr. Woo and will increase fentanyl patch to 100 mcg and monitor for improvement with that change. Continue TPN, will increase K and discuss with pharmacy re: total volume in the setting of high drain outputs. Hold further saline today unless evidence of volume depletion, overall volume status appears stable although difficult to assess in her. Recheck CBC, renal panel in AM and CMP Sunday. Continue to encourage participation with therapy. 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 The patient also had a new intra-abdominal fluid collection at that time that was 4.1 x 4.1 x 4.6 cm.-the patient has received 3 weeks of tigecycline. Decision made by Dr. Puente/Dr. Lewis of ID on 05/11 to hold further tigecycline. WBC decreased again today. Afebrile Leukocytosis, improved to 12K today, monitoring. Chronic anemia, Hb 7.5, may need PRBC if continued decline. Elevated BUN-trending down daily, no evidence of intravascular depletion, off saline currently Protein calorie malnutrition-requiring TPN with planned [facility] need, adjusting per pharmacy, electrolytes stable today Hypertension per history, recent BP marginal in the 90-100 range systolic Diabetes? Versus hyperglycemia from TPN--well controlled currently Chronic abdominal pain secondary to open abdominal wound and pancreatic pseudocyst--suspect not absorbing the po meds well, pain not controlled Decubitus ulcer Pancreatic pseudocyst with unsuccessful attempt for endoscopic cyst stress study on 05/01/2017 History of metastatic neuroendocrine tumor, status post resection History of recurrent acute kidney injury secondary to volume depletion from high output abdominal drainage, volume status stable currently Debility secondary to prolonged illness Plan Continue with current pain control regimen, will defer any further changes to Dr. Woo, comfortable when resting Not likely absorbing the po meds well but has fentanyl patch, increased to 100 mcg on 05/12, monitor Hold any medications that would drop her blood pressure and monitor for signs of infection Continue TPN per pharmacy Hold further saline today unless evidence of volume depletion, labs and exam stable CBC, CMP in AM Continue to encourage participation with therapy. 05/15/17 Plan Continue with current pain control regimen, will defer any further changes to Dr. Woo, comfortable when resting Cory area of erythema to monitor of evidence of extension. Discussed with OT regarding assessing if there is any irritation or rubbing on the right rivas with patient's leg brace. Will evaluate if more padding as needed. Patient verbalizes this area of her leg is so uncomfortable. She is unable to work with therapy or stand. Regarding increased fever overnight, blood cultures have been drawn and are preliminary negative. Will continue to monitor. Leukocytosis remained stable and is trending down. Continue to monitor hemoglobin as this is slightly decreased, likely secondary to dilution given IV fluids overnight. Continue with wound care. Continue to encourage work with PT and OT for ongoing strengthening Plan- 05/16/17 Erythema of RLE is gone and pain has greatly improved. MRI of the Right ankle was obtained and reveled diffuse osteoporosis with mild subQ edema. Since the erythema has improved will hold off on any antibiotic treatment. She has remained afebrile and WBC count remains stable. Appreciated recommendations by Dr Puente to avoid antibiotics if possible. Appreciate Dr Gayle consultation for further recommendations. Continue with TPN for nutrition. Carefully monitor electrolytes. 05/19/17 Leukocytosis persistent but stable; abx continue to hold. Remains afebrile. BP have remained low but stable; MAP >65 mm Hg. Hgb up to 7.9; thrombocytosis also noted in 05/20/17 Pain remains a major concern of pt. She continues on Fentanyl 100mcg/PRN oxycodone/PRN Morphine BID. Will add TID Gabapentin elixer. Consider adding Cymbalta for pain control and anxiety once we see how she is tolerating gabapentin. Continue TPN, pharmacy following. Continue monitoring labs/accu checks. Consider bladder training to DC christine. Persistent leukocytosis with reactive thrombocytosis- consider repeating CT scan if she becomes febrile. Continue strengthening exercises. 05/21/17 Fever of 101.3 this am. WBC up to 15. BC sent. UA positive with sample from catheter - culture was sent. Will check CXR due to SOA. Platelets up to 510. Dr. Puente is planning on re-evaluating her today. Will check lactate and procalcitonin. ?Repeat CT? Continue pain control; change gabapentin to pill but we may need to revert back to elixer if ineffective. BUN and creatinine are trending up - will give 1L NS. Continue bladder retraining. LFTs increasing - could be related to TPN. 05/22/17 Recurrent fever since 05/21/17. Night doctors gave her a one-time dose of tigecycline after temp increased again to 101. UA and BC show no growth after 1 day. CXR was negative. Swab throat for strep. Discussed with Dr. Puente - CT soft tissue of neck. Continue tigecycline. Hgb decreased to 6.9 - repeat now. May need transfusion. She received a liter of NS yesterday. Will give 1 more liter today. BP has been low to low-normal, which is typical for her. Continue TPN. Monitor for fluid overload since she's getting some extra IVF. 05/23/17-plan Continue to monitor gastric output. It is dark brown in nature. On evaluation of abdominal wound. No evidence of acute bleeding. Will continue to follow routine serum hemoglobin level. She did receive a blood transfusion yesterday. His hemoglobin did dip down to 6.9. Hemoglobin this morning is stable at 9.0. Return of mild hypokalemia. Will give a one-time dose of oral potassium supplementation. Strep throat swab remains negative. Oral nystatin ordered. Urine culture continues to reveal Klebsiella, which has been chronic for her. She continues on Tigecycline IV. 05/24/17 Klebsiella UTI - discussed with Dr. Puente. Complete 7-day course of Tygacil ( through 05/27/17). Remove Christine tomorrow am and monitor PVR. Hgb stable at 8.7 s/p PRBC transfusion on 05/22/17. Hypokalemia - K up to 3.8. 05/28/17 Klebsiella UTI - completed 7-day course of Tygacil. Christine has been out for a few days. Hgb improved to 9.0 - s/p PRBC transfusion on 05/22/17. She's been refusing Nystatin (makes her vomit) - she will let us know if her sore throat becomes worse. Consider Diflucan. 06/01/17 Overall doing well. Continues to work hard with therapy. Hemoglobin is stable at 9.4, last transfusion was on 05/22/17 Overall blood sugars appear to be well controlled, fasting blood sugar this morning was 89. Continue with wound care Lovenox subcutaneous daily for DVT prophylaxis Planning for discharge- Likely early next week 06/04/17 Overall doing well. Continues to work hard with therapy and is eager for discharge. Anticipate discharge in the near future. CM working on discharge plan. Continue therapies and pain control per Dr. Woo to maximize functional abilities. Nursing reports reluctance to toilet resulting in incontinence; continue to encourage daily activities. Complains of sinus drainage and seasonal allergies. Currently on Zyrtec and requests to discontinue Zyrtec and try Claritin. May consider Flonase for sinus congestion if persistent symptoms. Overall blood sugars appear to be well controlled, fasting blood sugar this morning was 84. Continue on costume TPN as electrolytes are stabilized. AST and ALT slightly elevated at 125 and 92 respectively. Will continue to monitor periodically throughout admission. Continue on fluid restriction in light of previous hyponatremia. Continue with wound care. Monitor areas of high pressure (coccyx, elbows, ankles, etc) for skin breakdown as patient is reluctant to change position and continues to have episodes of incontinence. Continue Lovenox subcutaneous daily for DVT prophylaxis. Last hemoglobin stable at 9.4 on 06/01. Will recheck labs on 06/06 to monitor blood counts, electrolytes and renal function. Planning for discharge- Likely early next week Time spent with patient: greater than 35 minutes Discharge Plan - Med Rec/Dispo Referrals/Follow Up: Nas Ruelas DO [Physician] - (Dr. Nas Ruelas on 06/19/17 at 11:30 am for Hosp. follow-up. [phone] [facility] [address] [place] [address]) Prescriptions: New Enoxaparin Sodium [Lovenox] 40 mg SQ DAILY #30 syringe Gabapentin [Neurontin] 200 mg PO TID #30 cap Venlafaxine Xr [Effexor Xr] 37.5 mg PO WB #30 cap Diclofenac [Voltaren] 1 applicatio TP QID #1 tube FentaNYL PATCH [Duragesic Patch] 100 mcg TD Q3D #10 patch Continue Acetaminophen [Acetaminophen Extra Strength] 1,000 mg PO Q6HPRN PRN PRN Reason: Pain Saliva Substitute Mouth High View [Biotene Moisturizing Mouth High View] 1 applic PO QIDPRN PRN PRN Reason: Dry Mouth HydrOXYzine [Atarax] 25 mg PO QIDPRN PRN #30 tab PRN Reason: Itching Oxycodone *Ir* [Roxicodone *Ir*] 5 - 10 mg PO Q4HPRN PRN #40 tablet PRN Reason: Pain Cetirizine [Zyrtec] 5 mg PO DAILY Heparin Sodium,Porcine/Pf [Heparin Flush 10 Units/ml Syr] 1 ml IVP BID #20 syringe Ondansetron [Zofran Odt] 1 tab PO Q6HPRN PRN #20 tab.rapdis PRN Reason: Nausea Discontinued LORazepam INJ [Ativan Inj] 0.13 ml IM Q6HPRN PRN PRN Reason: Anxiety Meperidine HCl/Pf [Meperidine 25 mg/ml Vial] 2 ml IV Q4HPRN PRN PRN Reason: Pain Albuterol/Ipratropium [Duoneb] 1 unit AEROSOL QIDPRN PRN PRN Reason: Shortness Of Air/Wheezing Hydromorphone HCl in 0.9% NaCl [Hydromorphone-Ns 1 mg/ml Syr] 0.25 mg IVP Q2HPRN PRN PRN Reason: Pain D50w [Dextrose 50% in Water] 50 ml IV O PRN PRN Reason: Hypoglycemia Glucagon [Glucagen] 1 mg IM PRN PRN PRN Reason: hypoglycemia DiphenhydrAMINE [Benadryl] 25 mg IV Q8HPRN PRN PRN Reason: Itching Acetaminophen [Feverall] 650 mg RC Q4HPRN PRN PRN Reason: Fever Miconazole 2% Powder [Desenex] 1 applic TP BID Ibuprofen [Motrin] 1 tab PO Q6H PRN PRN Reason: Pain Tigecycline 50 mg IV Q12H Nystatin Cream [Mycostatin] 1 applic TOP BID Insulin Lispro [Humalog] 0 unit SQ PRN PRN PRN Reason: Hyperglycemia Furosemide [Lasix] 20 mg IM DAILY PRN PRN Reason: NEEDED No Action FentaNYL PATCH [Duragesic Patch] 50 mcg TD Q3D FentaNYL PATCH [Duragesic Patch] 25 mcg TD Q3D Polyethylene Glycol 3350 17 gm PO DAILY PRN PRN Reason: Constipation Discharge Instructions/Outpatient Orders: Final Provider Discharge Instructions Location: Determined By Patient - Disposition [address] [place] [address]
[2017-06-05] MEDS: DICLOFENAC 1% TOP GEL 100gm TP SCH ×3 (11:19→17:53)
[2017-06-05] MEDS: MICONAZOLE 2% POWDER 45gm TP SCH (11:20)
--- NOTE | 2017-06-05 11:20 | Wound Care Progress Note ---
Wound Center Progress Note: Today meet with , IRU Nurses x 2 and Home health staff by Face time for education. At this time we are set up to change pouching system for educational reasons. Pt did have some leaking at night, and staff did a good job of keeping skin clean. At this time all supplies are gathered, pouching system removed and skin cleaned. Again skin looks red in some areas but overall skin is intact. 3M Advanced Cavilon skin protectant is applied to all periwound area. Pouching system cut to fit then applied, warm blanket applied. Red-robnel cath is cut with extra drainage holes and placed in pouch and attached to suction making sure it is not laying against fistula it's self. Suction to 20mm intermetintely Pt refused to participate in care at this time. Pt is tranferring home today, all supplies were placed together to transfer home with pt.
--- NOTE | 2017-06-05 11:56 | Discharge Instructions ---
Discharge Plan - Med Rec/Dispo Referrals/Follow Up: Nas Ruelas DO [Physician] - (Dr. Nas Ruelas on 06/19/17 at 11:30 am for Hosp. follow-up. [facility] [address] [place] [address]) Prescriptions: New Enoxaparin Sodium [Lovenox] 40 mg SQ DAILY #30 syringe Gabapentin [Neurontin] 200 mg PO TID #30 cap Venlafaxine Xr [Effexor Xr] 37.5 mg PO WB #30 cap Diclofenac [Voltaren] 1 applicatio TP QID #1 tube FentaNYL PATCH [Duragesic Patch] 100 mcg TD Q3D #10 patch Continue Acetaminophen [Acetaminophen Extra Strength] 1,000 mg PO Q6HPRN PRN PRN Reason: Pain Saliva Substitute Mouth [place] [Biotene Moisturizing Mouth [place]] 1 applic PO QIDPRN PRN PRN Reason: Dry Mouth HydrOXYzine [Atarax] 25 mg PO QIDPRN PRN #30 tab PRN Reason: Itching Oxycodone *Ir* [Roxicodone *Ir*] 5 - 10 mg PO Q4HPRN PRN #40 tablet PRN Reason: Pain Cetirizine [Zyrtec] 5 mg PO DAILY Heparin Sodium,Porcine/Pf [Heparin Flush 10 Units/ml Syr] 1 ml IVP BID #20 syringe Ondansetron [Zofran Odt] 1 tab PO Q6HPRN PRN #20 tab.rapdis PRN Reason: Nausea Discontinued LORazepam INJ [Ativan Inj] 0.13 ml IM Q6HPRN PRN PRN Reason: Anxiety Meperidine HCl/Pf [Meperidine 25 mg/ml Vial] 2 ml IV Q4HPRN PRN PRN Reason: Pain Albuterol/Ipratropium [Duoneb] 1 unit AEROSOL QIDPRN PRN PRN Reason: Shortness Of Air/Wheezing Hydromorphone HCl in 0.9% NaCl [Hydromorphone-Ns 1 mg/ml Syr] 0.25 mg IVP Q2HPRN PRN PRN Reason: Pain D50w [Dextrose 50% in Water] 50 ml IV O PRN PRN Reason: Hypoglycemia Glucagon [Glucagen] 1 mg IM PRN PRN PRN Reason: hypoglycemia FentaNYL PATCH [Duragesic Patch] 50 mcg TD Q3D FentaNYL PATCH [Duragesic Patch] 25 mcg TD Q3D DiphenhydrAMINE [Benadryl] 25 mg IV Q8HPRN PRN PRN Reason: Itching Acetaminophen [Feverall] 650 mg RC Q4HPRN PRN PRN Reason: Fever Miconazole 2% Powder [Desenex] 1 applic TP BID Ibuprofen [Motrin] 1 tab PO Q6H PRN PRN Reason: Pain Tigecycline 50 mg IV Q12H Nystatin Cream [Mycostatin] 1 applic TOP BID Insulin Lispro [Humalog] 0 unit SQ PRN PRN PRN Reason: Hyperglycemia Furosemide [Lasix] 20 mg IM DAILY PRN PRN Reason: NEEDED No Action Polyethylene Glycol 3350 17 gm PO DAILY PRN PRN Reason: Constipation Discharge Instructions/Outpatient Orders: Final Provider Discharge Instructions Location: Determined By Patient - Disposition [address] [place] [address] Service
[2017-06-05] MEDS: INSULIN ASPART SQ PRN (12:31)
--- NOTE | 2017-06-05 12:58 | Progress Note ---
Progress Note: I saw Laura prior to discharge - RN reported oral bleeding and epistaxis. She complains of a sore throat and sinus drainage - hx of allergies. She doesn't feel like she has thrush. On exam, she had a small laceration on the tip of her tongue, but she had blood coating her upper and lower teeth on the right side. She had dried blood around her lips. Her posterior pharynx was erythematous with cobblestoning. I did not see any thrush. Nares were clear. She had mild anterior cervical lymphadenopathy which was tender on palpation. We discussed risks: benefits of Lovenox. Laura understood why we were going to Rx Lovenox (to prevent blood clots), but with epistaxis and oral bleeding we decided to discontinue Lovenox. She agreed to try to stay active at home. I encouraged them to talk with their PCP about restarting Lovenox if her activity level is too low. I also recommended fluticasone - her will purchase it OTC. She also takes Zyrtec at home. Laura and her were in agreement.
--- NOTE | 2017-06-05 13:36 | IRU Team Meeting ---
IRU Team Meeting - Nursing Vital Signs: Vital Signs - 24 hr 06/04/17 16:00 06/04/17 20:55 06/04/17 21:06 Temperature 97.0 F 98.9 F Pulse Rate 98 101 H Respiratory Rate 16 16 Blood Pressure 105/71 94/74 102/74 Pulse Oximetry 93 99 06/05/17 01:00 06/05/17 07:18 06/05/17 12:15 Temperature 98.8 F 98.2 F 98.0 F Pulse Rate 98 97 110 H Respiratory Rate 18 20 18 Blood Pressure 110/65 112/66 115/71 Pulse Oximetry 99 97 98 Current Medications: Acetaminophen (Tylenol) 1,000 mg PO Q6H PRN PRN Reason: Pain Last Admin: 05/22/17 12:44 Dose: 1,000 mg Acetaminophen (Tylenol Supp) 650 mg [place] Q4H PRN PRN Reason: Fever Albuterol/Ipratropium (Duoneb) 3 ml AEROSOL QID PRN PRN Reason: Shortness of air/wheezing Belladonna Alkaloids/Opium (B & O Supp 16.2/60) 1 supp NJ Q12HR PRN Last Admin: 05/20/17 09:58 Dose: 1 supp Calcium Carbonate (Tums) 1,000 mg PO PRN PRN PRN Reason: Dyspepsia Last Admin: 05/21/17 11:57 Dose: 1,000 mg Diclofenac Sodium (Voltaren) 1 applic TP QID [facility] Last Admin: 06/05/17 11:19 Dose: 1 applic Diphenhydramine HCl (Benadryl) 25 mg IVP Q8H PRN PRN Reason: Itching Last Admin: 05/29/17 21:43 Dose: 25 mg Enoxaparin Sodium (Lovenox) 40 mg SQ DAILY [facility] Last Admin: 06/05/17 08:21 Dose: 40 mg Fentanyl (Duragesic Patch) 100 mcg TD Q3D [facility] Last Admin: 06/04/17 12:58 Dose: 100 mcg Fentanyl Citrate (Duragesic Patch Removal) 1 removal TD Q3D [facility] Last Admin: 06/04/17 13:03 Dose: 1 removal Furosemide (Lasix) 20 mg IVP DAILY PRN PRN Reason: NEEDED Gabapentin (Neurontin) 200 mg PO TID [facility] Last Admin: 06/05/17 09:36 Dose: Not Given Glucagon (Glucagen) 1 mg IM PRN PRN PRN Reason: hypoglycemia Heparin Sodium (Beef Lung) (Heparin Flush) 100 unit IV BID [facility] Last Admin: 06/05/17 11:21 Dose: Not Given Heparin Sodium (Beef Lung) (Heparin Flush) 100 unit IV BID [facility] Last Admin: 06/05/17 11:19 Dose: 100 unit Heparin Sodium (Beef Lung) (Heparin Flush) 100 unit IV BID [facility] Last Admin: 06/05/17 11:20 Dose: 100 unit Heparin Sodium (Beef Lung) (Heparin Flush) 100 unit IV PRN PRN Last Admin: 06/04/17 04:45 Dose: 100 unit Hydroxyzine HCl (Atarax) 25 mg PO QID PRN PRN Reason: Itching Last Admin: 06/05/17 11:31 Dose: 25 mg Fat Emulsion Intravenous (Intralipid 20%) 100 mls @ 50 mls/hr IV 1600 [facility] Last Admin: 06/04/17 17:07 Dose: 50 mls/hr Sodium Chloride 140 meq/Sodium Acetate 60 meq/Potassium Chloride 40 meq/ Potassium Phosphate 20 meq/Magnesium Sulfate 16 meq/Calcium Gluconate 9.3 meq/ Multivitamins/Minerals 10 ml/Chromium/Copper/Manganese/Zinc 1 ml/ Folic Acid 2 mg/Thiamine HCl 100 mg/ Potassium Acetate 20 meq/ Amino Acids/Electrolytes 2, 135.9455 mls @ 75 mls/hr IV .Q24H [facility] Last Admin: 06/04/17 17:05 Dose: 75 mls/hr Insulin Aspart (Novolog) 0 unit SQ SS PRN PRN Reason: Protocol Last Admin: 06/05/17 12:31 Dose: 2 unit Loratadine (Claritin) 10 mg PO ACB [facility] Last Admin: 06/05/17 07:07 Dose: 10 mg Lorazepam (Ativan Inj) 0.25 mg IM Q6H PRN PRN Reason: Anxiety Miconazole Nitrate (Desenex) 1 applic TP BID [facility] Last Admin: 06/05/17 11:20 Dose: Not Given Morphine Sulfate (Roxanol Oral Liq) 10 mg SL BID PRN PRN Reason: Severe pain Last Admin: 05/26/17 11:12 Dose: 10 mg Nystatin (Mycostatin) 1 applic TP BID [facility] Last Admin: 06/05/17 11:20 Dose: Not Given Ondansetron HCl (Zofran Po) 4 mg PO Q6H PRN PRN Reason: Nausea Last Admin: 06/05/17 07:29 Dose: 4 mg Ondansetron HCl (Zofran) 4 mg IV Q6H PRN PRN Reason: Nausea &/or vomiting Last Admin: 06/01/17 09:18 Dose: 4 mg Oxycodone HCl (Roxicodone *Ir*) 5 - 10 mg PO Q4HPRN PRN PRN Reason: Pain Last Admin: 06/05/17 11:31 Dose: 5 mg Polyethylene Glycol (Miralax) 17 gm PO DAILY PRN PRN Reason: Constipation Promethazine HCl (Phenergan Inj) 25 mg IVP Q4H PRN PRN Reason: NAUSEA & VOMITING Last Admin: 06/02/17 20:00 Dose: 25 mg Saliva Substitute (Biotene Moisturizing Mouth [place]) 4 spray PO QID PRN PRN Reason: Dry mouth Sodium Chloride (Iv Flush) 10 - 80 ml IV PRN PRN PRN Reason: Flushing Last Admin: 06/03/17 09:37 Dose: 20 ml Sodium Chloride (Normal Saline) 500 ml IV PRN PRN Last Admin: 05/27/17 09:44 Dose: 500 ml Throat Lozenges (Chloraseptic [place]) 3 spray PO Q2H PRN PRN Reason: Sore throat Venlafaxine HCl (Effexor Xr) 37.5 mg PO WB SEAN Last Admin: 06/05/17 08:18 Dose: 37.5 mg Comments: I certify that I personally led the interdisciplinary team meeting and agree with comments, barriers and goals indicated. Team meeting was held in the patient's room with the patient and the following family members present: Ramona Sanchez is medically stable for dismissal. Arrangements have been made for TPN to be delivered here this afternoon. She has been afebrile. Continues to have frequent nausea. Use of pain medication has decreased. Has noted some bleeding from the mouth. Hospitalist service noted a tiny cut on the tip of her tongue perhaps. I had noted some gum disease as well. Lovenox has been discontinued in this regard. asked about blood glucose monitoring at home in view of the TPN. All of her sugars have been less than 200. Has received only minimal amounts of supplemental sliding scale insulin. We will ask her to check her blood sugars twice daily at home and to write them down and review those with the home health nurse. The following forms have been completed: 1. CMN for hospital bed 2. CMN for wheelchair ([place]) 3. Handicap form 4. Prescriptions for pain medicines 5. A blood glucose monitor and strips will be provided for the patient. - Physical Therapy Comments: Patient and family underwent training late last week and was given handouts. They will work on car transfers today. - Occupational Therapy Lower Body Dressing Comment: Transfers were demonstrated with and he participated in transfers. Does require assistance for lower extremity dressing. - Care Plan Anticipated Length of Stay: 0 Anticipated DC Destination: Home Health Service Interventions/Goals: Extensive arrangements have been undertaken for safe transfer to her home today. Discharge summary and letter have been generated for Dr. Ruelas. TPN is been arranged through [facility]. Home health is been instructed.
[2017-06-05 16:29] VITALS: BP 106/66; PULSE 105; RESP 16; TEMP 98; O2SAT 97
--- NOTE | 2017-06-05 16:59 | Discharge Instructions ---
Discharge Plan - Med Rec/Dispo Referrals/Follow Up: Omar Brown MD [Other] (Dr. [place] Brown on 06/12/17 at 1:15 pm for [id number] follow-up. #[phone] [facility] [address] [address] [place] [address]) Nas Ruelas DO [Physician] - (Dr. Nas Ruelas on 06/19/17 at 11:30 am for Hosp. follow-up. [facility] [address] [place] [address]) Chava Instructions: [facility] PICC Discharge Instructions, How to Check Your Blood Sugar (GEN), Fall Prevention (GEN) Additional Instructions: Monitor mucous membranes for bleeding - we are holding Lovenox at time of discharge b/c of mild epistaxis and a small cut on her tongue that was bleeding on day of discharge. Since we are not Rx Lovenox, it is important to keep as active at home as possible to prevent blood clots. Prescriptions: New Gabapentin [Neurontin] 200 mg PO TID #30 cap Venlafaxine Xr [Effexor Xr] 37.5 mg PO WB #30 cap Diclofenac [Voltaren] 1 applicatio TP QID #1 tube FentaNYL PATCH [Duragesic Patch] 100 mcg TD Q3D #10 patch Fluticasone Nasal [place] [Flonase] 2 spray EA NOSTRIL BID #1 bottle Continue Acetaminophen [Acetaminophen Extra Strength] 1,000 mg PO Q6HPRN PRN PRN Reason: Pain Polyethylene Glycol 3350 17 gm PO DAILY PRN PRN Reason: Constipation Saliva Substitute Mouth [place] [Biotene Moisturizing Mouth [place]] 1 applic PO QIDPRN PRN PRN Reason: Dry Mouth HydrOXYzine [Atarax] 25 mg PO QIDPRN PRN #30 tab PRN Reason: Itching Oxycodone *Ir* [Roxicodone *Ir*] 5 - 10 mg PO Q4HPRN PRN #40 tablet PRN Reason: Pain Cetirizine [Zyrtec] 5 mg PO DAILY Heparin Sodium,Porcine/Pf [Heparin Flush 10 Units/ml Syr] 1 ml IVP BID #20 syringe Ondansetron [Zofran Odt] 1 tab PO Q6HPRN PRN #20 tab.rapdis PRN Reason: Nausea Discontinued LORazepam INJ [Ativan Inj] 0.13 ml IM Q6HPRN PRN PRN Reason: Anxiety Meperidine HCl/Pf [Meperidine 25 mg/ml Vial] 2 ml IV Q4HPRN PRN PRN Reason: Pain Albuterol/Ipratropium [Duoneb] 1 unit AEROSOL QIDPRN PRN PRN Reason: Shortness Of Air/Wheezing Hydromorphone HCl in 0.9% NaCl [Hydromorphone-Ns 1 mg/ml Syr] 0.25 mg IVP Q2HPRN PRN PRN Reason: Pain D50w [Dextrose 50% in Water] 50 ml IV O PRN PRN Reason: Hypoglycemia Glucagon [Glucagen] 1 mg IM PRN PRN PRN Reason: hypoglycemia FentaNYL PATCH [Duragesic Patch] 50 mcg TD Q3D FentaNYL PATCH [Duragesic Patch] 25 mcg TD Q3D DiphenhydrAMINE [Benadryl] 25 mg IV Q8HPRN PRN PRN Reason: Itching Acetaminophen [Feverall] 650 mg RC Q4HPRN PRN PRN Reason: Fever Miconazole 2% Powder [Desenex] 1 applic TP BID Ibuprofen [Motrin] 1 tab PO Q6H PRN PRN Reason: Pain Tigecycline 50 mg IV Q12H Nystatin Cream [Mycostatin] 1 applic TOP BID Insulin Lispro [Humalog] 0 unit SQ PRN PRN PRN Reason: Hyperglycemia Furosemide [Lasix] 20 mg IM DAILY PRN PRN Reason: NEEDED Discharge Instructions/Outpatient Orders: Final Provider Discharge Instructions Location: Determined By Patient - Disposition [address] [place] [address]
[2017-06-05] MEDS: [UNRECOGNIZED DRUG - OTHER] IV SCH (17:52)
[2017-06-05] MEDS: FAT EMULSION 20% 100 ML IV SCH (17:52)
[2017-06-05] MEDS: POTASSIUM CHLORIDE IV SCH (17:52)
[2017-06-05] MEDS: SODIUM CHLORIDE IV SCH (17:52)
[2017-06-05] MEDS: SODIUM ACETATE IV SCH (17:52)
== END 2017-06-05 18:08 | disposition home health service (06) | DRG 92 ==
PROVIDERS: ADMIT Internal Medicine; ATTEND Internal Medicine